=== PATIENT | male | born 1940 | race Caucasian/White ===

== ENCOUNTER 2018-05-04 19:18 | Inpatient (IN) | payer MEDICARE ==
[2018-05-04] MEDS ORDERED: SODIUM CHLORIDE 0.9% 1,000 ML IV STA ×2 (19:33)
[2018-05-04] MEDS ORDERED: ONDANSETRON 4 MG/2 ML VIAL IVP STA (19:33)
[2018-05-04] MEDS ORDERED: PANTOPRAZOLE 40 MG/10 ML VIAL IVP STA (19:33)
[2018-05-04 19:56] LABS: Anisocytosis Slight; Hypochromasia Marked; MCHC 30.4 g/dL (31.0-37.0); MCV 79.1 fL (80.0-100.0); Mean Platelet Volume 9.5; Microcytosis Slight; Platelet Count 112 k/uL (150-450); Poikilocytosis Slight; RBC 1.72 m/uL (4.30-5.90); RDW 18.8 % (11.5-15.5); WBC 22.2 k/uL (3.8-10.6)
[2018-05-04 20:06] LABS: HCT 13.6 % (39.0-53.0); HGB 4.1 gm/dL (13.0-17.5)
[2018-05-04 20:15] LABS: ALT 38 U/L (21-72); AST 25 U/L (17-59); Albumin 2.3 g/dL (3.5-5.0); Alkaline Phosphatase 57 U/L (38-126); Anion Gap 13 mmol/L; Calcium 8.6 mg/dL (8.4-10.2); Carbon Dioxide 15 mmol/L (22-30); Chloride 109 mmol/L (98-107); Glucose 180 mg/dL (74-99); Sodium 137 mmol/L (137-145); Total Bilirubin <0.1 mg/dL (0.2-1.3); Total Protein 4.8 g/dL (6.3-8.2)
[2018-05-04 20:17] LABS: Creatine Kinase 23 U/L (55-170)
[2018-05-04] MEDS ORDERED: metroNIDAZOLE 500 MG TAB PO STA (20:22)
[2018-05-04] MEDS ORDERED: PIPERACILLIN-TAZOBACTAM 3.375 GM in DEXTROSE/WATER 1 50ML.BAG IVPB STA (20:22)
[2018-05-04 20:24] LABS: Band Neutrophils % 2 %; Lymphocytes # (M) 0.44 k/uL (1.0-4.8); Monocytes # (M) 1.78 k/uL (0-1.0); Myelocytes # (M) 0.67 k/uL (0); Myelocytes % 3 %; Neutrophils % (M) 86 %; Nucleated Red Blood Cells 0 /100 WBC (0-0); Total Cells Counted 200
[2018-05-04 20:25] LABS: Ovalocytes Present; Polychromasia Present
--- NOTE | 2018-05-04 20:29 | ED ---
General Adult HPI - General Chief complaint: Syncope Stated complaint: dizziness,diarrhea Time Seen by Provider: 05/04/18 19:19 Source: patient, EMS Mode of arrival: EMS Limitations: no limitations - History of Present Illness Initial comments: 76 years old male comes in with a diarrhea for about a week now he said he was feeling very weak he said he been falling he denies any loss of consciousness his blood pressure noted by EMS was 82/50 he feels very very feet he is pale he feels like he is given a pass out and he noticed that his stool was black tarry area I denies any head injury no neck injury because of the falls no chest pain right now mild abdominal discomfort. Symptoms of TIA or CVA - Related Data Home Medications Medication Instructions Recorded Confirmed Aspirin [Adult Low Dose Aspirin EC] 81 mg PO DAILY@1500 01/02/16 01/02/16 Isosorbide Mononitrate [Isosorbide 30 mg PO DAILY@1500 01/02/16 01/02/16 Mononitrate ER] Pyridoxine [Vitamin B-6] 100 mg PO DAILY@1500 01/02/16 01/02/16 Previous Rx's Medication Instructions Recorded Cephalexin [Keflex] 500 mg PO TID #30 cap 01/08/16 Furosemide [Lasix] 40 mg PO DAILY #30 tab 01/08/16 Lisinopril [Zestril] 2.5 mg PO DAILY #30 tab 01/08/16 Metoprolol Tartrate [Lopressor] 75 mg PO TID #90 tablet 01/08/16 Spironolactone [Aldactone] 25 mg PO DAILY #30 tab 01/08/16 Warfarin [Coumadin] 5 mg PO DAILY@1800 #30 tab 01/08/16 predniSONE 20 mg PO DAILY #4 tab 01/08/16 Allergies Allergy/AdvReac Type Severity Reaction Status Date / Time No Known Allergies Allergy Verified 01/02/16 16:10 Review of Systems ROS Statement: Those systems with pertinent positive or pertinent negative responses have been documented in the HPI. ROS Other: All systems not noted in ROS Statement are negative. Past Medical History Past Medical History: Atrial Fibrillation, Cancer, Myocardial Infarction ([place]) Additional Past Medical History / Comment(s): bladder ca, prostate ca had sx( urostomy) and 1 round of chemo in , afib, campo, hemorhoids, pt stated he was told by a dr that he had an enlarged heart, campo Last Myocardial Infarction Date:: 2002 History of Any Multi-Drug Resistant Organisms: None Reported Past Surgical History: Adenoidectomy, Tonsillectomy Additional Past Surgical History / Comment(s): bladder and prostate removal-has urostomy Past Anesthesia/Blood Transfusion Reactions: No Reported Reaction Past Psychological History: No Psychological Hx Reported Smoking Status: Current every day smoker Past Alcohol Use History: Daily Past Drug Use History: None Reported - Past Family History Father Family Medical History: No Reported History Mother Family Medical History: No Reported History General Exam Limitations: no limitations Course Vital Signs 05/04/18 19:20 Temperature 97.1 F L Pulse Rate 72 Respiratory 16 Rate Blood Pressure 85/50 O2 Sat by Pulse 95 Oximetry EKG Findings - EKG Comments: EKG Findings:: EKG is atrial fibrillation with rapid ventricular response rate is 127 Ms. atrial fibrillation QRS duration is 100 QT/QTC 312/453 and aVF this EKG does not reveal any ST elevation noticed some T-wave inversion in lead 3 and lead aVF some tall T waves in V4 V5 Medical Decision Making - Lab Data Result diagrams: 05/04/18 19:42 05/04/18 19:42 Lab Results 05/04/18 05/04/18 05/04/18 Range/Units 19:42 19:42 19:42 WBC 22.2 H (3.8-10.6) k/uL RBC 1.72 L (4.30-5.90) m/uL Hgb 4.1 L* (13.0-17.5) gm/dL Hct 13.6 L* (39.0-53.0) % MCV 79.1 L (80.0-100.0) fL MCH 24.0 L (25.0-35.0) pg MCHC 30.4 L (31.0-37.0) g/dL RDW 18.8 H (11.5-15.5) % Plt Count 112 L (150-450) k/uL Neutrophils % (Manual) 86 % Band Neutrophils % 2 % Lymphocytes % (Manual) 2 % Monocytes % (Manual) 8 % Myelocytes % 3 % Neutrophils # (Manual) 19.50 H (1.3-7.7) k/uL Lymphocytes # (Manual) 0.44 L (1.0-4.8) k/uL Monocytes # (Manual) 1.78 H (0-1.0) k/uL Myelocytes # (Manual) 0.67 H (0) k/uL Nucleated RBCs 0 (0-0) /100 WBC Manual Slide Review Performed Polychromasia Present Hypochromasia Marked Poikilocytosis Slight Anisocytosis Slight Microcytosis Slight Ovalocytes Present PT (9.0-12.0) sec INR (<1.2) APTT (22.0-30.0) sec Sodium (137-145) mmol/L Potassium (3.5-5.1) mmol/L Chloride (98-107) mmol/L Carbon Dioxide (22-30) mmol/L Anion Gap mmol/L BUN (9-20) mg/dL Creatinine (0.66-1.25) mg/dL Est GFR (CKD-EPI)AfAm (>60 ml/min/1.73 sqM) Est GFR (CKD-EPI)NonAf (>60 ml/min/1.73 sqM) Glucose (74-99) mg/dL Plasma Lactic Acid Delon (0.7-2.0) mmol/L Calcium (8.4-10.2) mg/dL Total Bilirubin (0.2-1.3) mg/dL AST (17-59) U/L ALT (21-72) U/L Alkaline Phosphatase (38-126) U/L Total Creatine Kinase 23 L (55-170) U/L CK-MB (CK-2) 1.1 (0.0-2.4) ng/mL CK-MB (CK-2) Rel Index 4.8 Troponin I <0.012 (0.000-0.034) ng/mL Total Protein (6.3-8.2) g/dL Albumin (3.5-5.0) g/dL Stool Occult Blood (Negative) Blood Type O Positive Blood Type Recheck No Antibody Screen NEGATIVE Crossmatch See Detail Spec Expiration Date 05/07/2018 - 234105/04/18 05/04/18 05/04/18 Range/Units 19:42 19:42 19:42 WBC (3.8-10.6) k/uL RBC (4.30-5.90) m/uL Hgb (13.0-17.5) gm/dL Hct (39.0-53.0) % MCV (80.0-100.0) fL MCH (25.0-35.0) pg MCHC (31.0-37.0) g/dL RDW (11.5-15.5) % Plt Count (150-450) k/uL Neutrophils % (Manual) % Band Neutrophils % % Lymphocytes % (Manual) % Monocytes % (Manual) % Myelocytes % % Neutrophils # (Manual) (1.3-7.7) k/uL Lymphocytes # (Manual) (1.0-4.8) k/uL Monocytes # (Manual) (0-1.0) k/uL Myelocytes # (Manual) (0) k/uL Nucleated RBCs (0-0) /100 WBC Manual Slide Review Polychromasia Hypochromasia Poikilocytosis Anisocytosis Microcytosis Ovalocytes PT (9.0-12.0) sec INR (<1.2) APTT (22.0-30.0) sec Sodium 137 (137-145) mmol/L Potassium 5.0 (3.5-5.1) mmol/L Chloride 109 H (98-107) mmol/L Carbon Dioxide 15 L (22-30) mmol/L Anion Gap 13 mmol/L BUN 131 H* (9-20) mg/dL Creatinine 2.50 H (0.66-1.25) mg/dL Est GFR (CKD-EPI)AfAm 28 (>60 ml/min/1.73 sqM) Est GFR (CKD-EPI)NonAf 24 (>60 ml/min/1.73 sqM) Glucose 180 H (74-99) mg/dL Plasma Lactic Acid Delon 4.1 H* (0.7-2.0) mmol/L Calcium 8.6 (8.4-10.2) mg/dL Total Bilirubin <0.1 L (0.2-1.3) mg/dL AST 25 (17-59) U/L ALT 38 (21-72) U/L Alkaline Phosphatase 57 (38-126) U/L Total Creatine Kinase (55-170) U/L CK-MB (CK-2) (0.0-2.4) ng/mL CK-MB (CK-2) Rel Index Troponin I (0.000-0.034) ng/mL Total Protein 4.8 L (6.3-8.2) g/dL Albumin 2.3 L (3.5-5.0) g/dL Stool Occult Blood Positive (Negative) Blood Type Blood Type Recheck Antibody Screen Crossmatch Spec Expiration Date 05/04/18 Range/Units 19:42 WBC (3.8-10.6) k/uL RBC (4.30-5.90) m/uL Hgb (13.0-17.5) gm/dL Hct (39.0-53.0) % MCV (80.0-100.0) fL MCH (25.0-35.0) pg MCHC (31.0-37.0) g/dL RDW (11.5-15.5) % Plt Count (150-450) k/uL Neutrophils % (Manual) % Band Neutrophils % % Lymphocytes % (Manual) % Monocytes % (Manual) % Myelocytes % % Neutrophils # (Manual) (1.3-7.7) k/uL Lymphocytes # (Manual) (1.0-4.8) k/uL Monocytes # (Manual) (0-1.0) k/uL Myelocytes # (Manual) (0) k/uL Nucleated RBCs (0-0) /100 WBC Manual Slide Review Polychromasia Hypochromasia Poikilocytosis Anisocytosis Microcytosis Ovalocytes PT >130.0 H (9.0-12.0) sec INR >10.0 H* (<1.2) APTT 63.1 H (22.0-30.0) sec Sodium (137-145) mmol/L Potassium (3.5-5.1) mmol/L Chloride (98-107) mmol/L Carbon Dioxide (22-30) mmol/L Anion Gap mmol/L BUN (9-20) mg/dL Creatinine (0.66-1.25) mg/dL Est GFR (CKD-EPI)AfAm (>60 ml/min/1.73 sqM) Est GFR (CKD-EPI)NonAf (>60 ml/min/1.73 sqM) Glucose (74-99) mg/dL Plasma Lactic Acid Delon (0.7-2.0) mmol/L Calcium (8.4-10.2) mg/dL Total Bilirubin (0.2-1.3) mg/dL AST (17-59) U/L ALT (21-72) U/L Alkaline Phosphatase (38-126) U/L Total Creatine Kinase (55-170) U/L CK-MB (CK-2) (0.0-2.4) ng/mL CK-MB (CK-2) Rel Index Troponin I (0.000-0.034) ng/mL Total Protein (6.3-8.2) g/dL Albumin (3.5-5.0) g/dL Stool Occult Blood (Negative) Blood Type Blood Type Recheck Antibody Screen Crossmatch Spec Expiration Date Critical Care Time Total Critical Care Time: 60 Critical Care Time: Since baseline hemoglobin is 13.5. Hemoglobin is 4.1 and a black tarry stool occult blood is positive for his INR is greater than 10 years PT is greater than 1:30 lactate is 4.1. Impression was 82/50, located all his parameters the septic, he has a massive GI bleed and now he has a atrial fibrillation with RVR instead of firm putting him on some AV blocking agent to go to give a hydrate him with the normal saline first then 3 units of packed red cells have been ordered 2 units of fresh frozen plasma along with vitamin K 10 mg has been ordered and spoke with the Dr. De Leon he agrees with that so for would also get broad-spectrum antibiotics and be going to the ICU he also got IV PPIs and now will consult Dr. Rhiannon Hickey Disposition Clinical Impression: Sepsis, GI bleed, Atrial fibrillation with RVR, Hypotension Disposition: ADMITTED IP TO THIS HOSP Condition: Good Referrals: Baudilio De Leon MD [Primary Care Provider] - 1-2 days
[2018-05-04 20:30] LABS: Creatine Kinase MB 1.1 ng/mL (0.0-2.4); Troponin I <0.012 ng/mL (0.000-0.034)
[2018-05-04 20:37] LABS: Prothrombin Time >130.0 sec (9.0-12.0)
[2018-05-04 20:39] LABS: INR >10.0 (<1.2)
[2018-05-04 20:40] LABS: Partial Thromboplastin Time 63.1 sec (22.0-30.0)
[2018-05-04 20:49] LABS: Blood Urea Nitrogen 131 mg/dL (9-20)
[2018-05-04] MEDS ORDERED: PHYTONADIONE 10 MG in SODIUM CHLORIDE 0.9% 50 ML IVPB STA (20:50)
[2018-05-04] MEDS ORDERED: NALOXONE 0.4 MG/ML 1 ML VIAL IV PRN (20:57)
[2018-05-04] MEDS ORDERED: ACETAMINOPHEN TAB 325 MG TAB PO PRN (20:57)
[2018-05-04] MEDS: DILTIAZEM 50 MG in SODIUM CHLORIDE 0.9% 40 ML IV SCH (21:20)
--- NOTE | 2018-05-04 21:31 | XR ---
EXAMINATION: XR chest 3V DATE AND TIME: 05/04/2018 8:12 PM ORDERING PROVIDER: Ingrid Almeida MD CLINICAL INDICATION: pain TECHNIQUE: 2 PA and lateral COMPARISON: 01/02/2016 DESCRIPTION: The lungs are clear. The pleural spaces are negative. The cardiac silhouette is mild-moderately enlarged. The mediastinal and pleural silhouettes are unrem arkable. The skeletal structures are intact without focal findings. The soft tissues are unremarkable . IMPRESSION: NO ACUTE PROCESS.
[2018-05-04] MEDS ORDERED: LORazepam 2 MG/ML INJ IM STA (22:25)
[2018-05-04] MEDS ORDERED: LORazepam 2 MG/ML INJ IV STA (22:28)
[2018-05-04] MEDS: KETAMINE 10 MG/ML 20 ML VIAL IV ONE ×2 (22:47→22:55)
--- NOTE | 2018-05-04 23:04 | XR ---
EXAMINATION TYPE: XR chest 1V portable DATE OF EXAM: 05/04/2018 COMPARISON: Today HISTORY: Altered mental status. TECHNIQUE: Single frontal view of the chest is obtained. FINDINGS: Heart is enlarged. There is some mild pulmonary vascular congestion. I see no definite ple ural effusion. Bony thorax appears intact. There is arthritic disease in the shoulder joints. IMPRESSION: There is probably mild congestive heart failure that is the same or slightly improved co mpared to exam earlier today at 8:00 PM.
[2018-05-04] MEDS ORDERED: NOREPINEPHRIN 4 MG-0.9% NS PMX 4 MG/250 ML ML IV SCH (23:15)
[2018-05-04] MEDS: fentaNYL (PF) 50 MCG/ML 2 ML AMP IVP STA ×2 (23:18→23:36)
[2018-05-04] MEDS: PROPOFOL 1,000 MG in EMPTY BAG 1 BAG IV SCH (23:25)
--- NOTE | 2018-05-05 00:15 | XR ---
EXAMINATION TYPE: XR chest 1V portable DATE OF EXAM: 05/04/2018 COMPARISON: Today at 10:45 PM HISTORY: Intubation TECHNIQUE: Single frontal view of the chest is obtained. FINDINGS: There is endotracheal tube with tip approximately 6 cm from the luisa. There is nasogastr ic tube with the tip at the gastroesophageal junction. There is right jugular catheter with tip over the superior vena cava. There is no pneumothorax. There is some pulmonary interstitial edema. Heart a ppears enlarged. IMPRESSION: Tubing in good position. There is some pulmonary edema unchanged.
--- NOTE | 2018-05-05 00:35 | CT ---
EXAMINATION TYPE: CT brain wo con DATE OF EXAM: 05/05/2018 COMPARISON: None HISTORY: AMS CT DLP: 1184.90 mGycm Automated exposure control for dose reduction was used. FINDINGS: There is some cerebral cortical atrophy. There is no mass effect nor midline shift. There is no sign of intracranial hemorrhage. There is 2 x 1 cm old lacunar infarct in the anterior right internal caps ule. The calvarium is intact. There is mild mucosal thickening in the ethmoid air cells. 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 NO ACUTE INTRACRANIAL ABNORMALITY.
[2018-05-05 00:49] LABS: ABG Base Excess -14.6 mmol/L; ABG HCO3 15 mmol/L (21-25); ABG PCO2 50 mmHg (35-45); ABG PO2 370 mmHg (83-108); ABG TCO2 17 mmol/L (19-24)
[2018-05-05 00:51] LABS: ABG PH 7.09 (7.35-7.45)
[2018-05-05] MEDS ORDERED: FUROSEMIDE 10 MG/ML 2 ML VIAL IV ONE (01:20)
[2018-05-05] MEDS ORDERED: FUROSEMIDE 10 MG/ML 4 ML VIAL IV STA (01:21)
[2018-05-05 01:56] LABS: Glucose,Whole Blood 252 mg/dL (75-99)
[2018-05-05] MEDS ORDERED: NOREPINEPHRIN 16 MG-0.9%NS PMX 16 MG/250 ML ML IV SCH (02:30)
[2018-05-05] MEDS: METOPROLOL TARTRATE 25 MG TAB PO SCH ×4 (03:42→21:55)
[2018-05-05 04:04] LABS: Albumin 2.7 g/dL (3.5-5.0); Calcium 8.5 mg/dL (8.4-10.2); Magnesium 2.3 mg/dL (1.6-2.3); Phosphorus 5.5 mg/dL (2.5-4.5); Potassium 5.7 mmol/L (3.5-5.1); Total Bilirubin 0.4 mg/dL (0.2-1.3); Total Protein 5.3 g/dL (6.3-8.2)
[2018-05-05 04:05] LABS: Anisocytosis Slight; HCT 20.4 % (39.0-53.0); Hypochromasia Marked; MCH 26.9 pg (25.0-35.0); MCHC 31.9 g/dL (31.0-37.0); Mean Platelet Volume 11.5; Platelet Count 163 k/uL (150-450); Poikilocytosis Slight; RBC 2.42 m/uL (4.30-5.90); RDW 18.2 % (11.5-15.5)
[2018-05-05] MEDS: NOREPINEPHRINE 16 MG in DEXTROSE 5% IN WATER 250 ML IV SCH ×4 (04:06→17:17)
[2018-05-05 04:11] LABS: HGB 6.5 gm/dL (13.0-17.5); MCV 84.3 fL (80.0-100.0)
[2018-05-05 04:30] LABS: Band Neutrophils % 8 %; Lymphocytes # (M) 1.92 k/uL (1.0-4.8); Metamyelocytes # (M) 0.64 k/uL (0); Metamyelocytes % 2 %; Monocytes # (M) 0.32 k/uL (0-1.0); Myelocytes # (M) 0.32 k/uL (0); Myelocytes % 1 %; Neutrophils % (M) 83 %; Nucleated Red Blood Cells 0 /100 WBC (0-0); Total Cells Counted 200
[2018-05-05 04:31] LABS: Poikilocytosis (M) Present; Polychromasia Present; Target Cells Present
[2018-05-05] MEDS: PROPOFOL 1,000 MG in EMPTY BAG 1 BAG IV SCH ×3 (07:41→18:05)
--- NOTE | 2018-05-05 07:56 | XR ---
EXAMINATION TYPE: XR chest 1V DATE OF EXAM: 05/05/2018 CLINICAL HISTORY: Difficulty breathing progress study. TECHNIQUE: Single AP portable upright view of the chest is obtained. COMPARISON: Chest x-ray from one day earlier and older studies. CT chest January 03, 2016. FINDINGS: An endotracheal tube, orogastric tube, and right internal jugular central venous catheter are all stable in appearance. There is persistent cardiomegaly. There is no suspicious new focal airspace opacity, pleural effusion , or pneumothorax seen bilaterally. Background mild chronic emphysematous change is noted and 2016 CT . Degenerative change bilateral glenohumeral joints is present. IMPRESSION: Overall stable findings, mild underlying emphysematous change and cardiomegaly without suspicious acute infiltrate.
[2018-05-05] MEDS: IPRATROPIUM-ALBUTEROL 3 ML NEB INHALATION PRN ×4 (08:01→19:28)
[2018-05-05] MEDS ORDERED: FUROSEMIDE 40 MG TAB PO SCH (09:00)
[2018-05-05] MEDS ORDERED: PANTOPRAZOLE 40 MG/10 ML VIAL IV SCH (09:00)
[2018-05-05] MEDS ORDERED: predniSONE 20 MG TAB PO SCH (09:00)
[2018-05-05] MEDS ORDERED: SPIRONOLACTONE 25 MG TAB PO SCH (09:00)
[2018-05-05 09:30] LABS: ABG Base Excess -6.6 mmol/L; ABG HCO3 20 mmol/L (21-25); ABG Oxygen Saturation 94.9 % (94-97); ABG PCO2 44 mmHg (35-45); ABG PH 7.27 (7.35-7.45); ABG PO2 72 mmHg (83-108); ABG TCO2 22 mmol/L (19-24)
--- NOTE | 2018-05-05 10:01 | P.CONS ---
History of Present Illness - Reason for Consult Consult date: 05/05/18 GI bleeding Requesting physician: Baudilio De Leon - History of Present Illness Patient intubated history obtained from medical records and nursing staff. 77- year-old gentleman with a history of prostate cancer/urostomy, atrial fibrillation maintained on warfarin admitted with generalized weakness and black colored bowel movements as well as mild abdominal pain falls intermittent loss of consciousness for over a week. Patient had episode of A. fib with RVR as well as mental status changes in the ER CT brain no acute process. Patient was subsequently intubated presently resting in the ICU setting. Orogastric tube in place with nonbloody gastric fluid. Ensure patient has a history of peptic ulcer disease or GI bleeding. Unsure if he's had a recent EGD or colonoscopy. Admission hemoglobin 4.1. MCV 79. White count 22. Platelet 112. INR greater than 10. BUN 131. Chronic 2.5. LFTs within normal limits. Lactic acid 4.1 with hydration improved to 2.0. Received Vitamin K 2 units of FFP and 3 units of blood. Hemoglobin 6.5. White count 32. Platelet 163. Stool occult blood positive. Upon review of medical records previous hemoglobin range 12-13 in 2016. Review of Systems Obtained from medical records nursing staff Constitutional: Generalized weakness falls loss of consciousness intermittently over the last week no reports of fever or chills. HEENT: Negative for migraines, blurred vision or loss, earaches, drainage, tinnitus, oral mucosal lesions, dysphagia, or odynophagia. Cardiac: Negative for chest pain, arrhythmias, or palpitation. Respiratory: Negative for shortness of breath, hemoptysis, cough, or sputum production. Gastrointestinal: See HPI for pertinent findings. Genitourinary: Negative for hematuria, urgency, frequency, polyuria, dysuria, or penile discharge. Musculoskeletal: Negative for muscle aches, swelling, arthritis, and arthralgias. Neurologic: Negative for stroke or TIA. Endocrine: Negative for thyroid problems. Skin: Negative for rash or itching. Psychiatric: Negative history for depression and anxiety ROS unobtainable: due to endotracheal tube, due to mental status Past Medical History Past Medical History: Atrial Fibrillation, Cancer, Myocardial Infarction ([place]) Additional Past Medical History / Comment(s): bladder ca, prostate ca had sx( urostomy) and 1 round of chemo in , afib, [place], hemorhoids, pt stated he was told by a dr that he had an enlarged heart, [place] Last Myocardial Infarction Date:: 2002 History of Any Multi-Drug Resistant Organisms: None Reported Past Surgical History: Adenoidectomy, Tonsillectomy Additional Past Surgical History / Comment(s): bladder and prostate removal-has urostomy Past Anesthesia/Blood Transfusion Reactions: No Reported Reaction Past Psychological History: No Psychological Hx Reported Additional Psychological History / Comment(s): pt lives alone in own home. used to work at [employer], no service. Smoking Status: Former smoker Past Alcohol Use History: Daily Additional Past Alcohol Use History / Comment(s): started smoking at age 15 or 16, smoked 1 ppd but quit 7 days ago. drinks 3 beer per day,denies drug use per daughter. Past Drug Use History: None Reported - Past Family History Father Family Medical History: No Reported History Mother Family Medical History: No Reported History Medications and Allergies Home Medications Medication Instructions Recorded Confirmed Type Isosorbide Mononitrate [Isosorbide 30 mg PO DAILY 01/02/16 05/04/18 History Mononitrate ER] Pyridoxine [Vitamin B-6] 100 mg PO DAILY 01/02/16 05/04/18 History Furosemide [Lasix] 40 mg PO DAILY #30 tab 01/08/16 05/04/18 Rx Lisinopril [Zestril] 2.5 mg PO DAILY #30 tab 01/08/16 05/04/18 Rx Spironolactone [Aldactone] 25 mg PO DAILY #30 tab 01/08/16 05/04/18 Rx Metoprolol Tartrate [Lopressor] 75 mg PO BID 05/04/18 05/04/18 History Multivitamins, Thera [Multivitamin 1 tab PO DAILY 05/04/18 05/04/18 History (formulary)] Warfarin Sodium [Coumadin] 8 mg PO DAILY 05/04/18 05/04/18 History Allergies Allergy/AdvReac Type Severity Reaction Status Date / Time No Known Allergies Allergy Verified 05/04/18 21:14 Physical Exam Vitals: Vital Signs Temp Pulse Resp BP Pulse Ox 05/05/18 09:30 123 H 21 95/38 94 L 05/05/18 09:15 101 H 22 101/47 05/05/18 09:00 100 16 96/50 100 05/05/18 08:45 101 H 17 103/53 100 05/05/18 08:30 97 16 118/56 05/05/18 08:23 100 16 05/05/18 08:15 94 15 104/38 100 05/05/18 08:02 89 17 05/05/18 08:00 97.5 F L 87 16 111/43 100 05/05/18 07:45 100 17 117/38 100 05/05/18 07:30 96 16 108/52 05/05/18 07:15 93 17 103/42 100 05/05/18 07:00 87 16 87/45 100 05/05/18 06:45 80 16 81/37 99 05/05/18 06:30 92 16 86/46 100 05/05/18 06:15 93 16 100/59 100 05/05/18 06:00 86 16 99/54 97 05/05/18 05:45 110 H 16 86/49 100 05/05/18 05:30 100 16 90/48 100 05/05/18 05:15 93 16 83/45 100 05/05/18 05:00 88 16 77/54 100 05/05/18 04:45 99 18 85/58 100 05/05/18 04:30 100 17 95/50 100 05/05/18 04:15 105 H 16 107/54 100 05/05/18 04:00 97.9 F 100 16 106/52 100 05/05/18 03:56 97.7 F 109 H 17 106/52 100 05/05/18 03:45 102 H 18 106/49 100 05/05/18 03:30 116 H 16 115/55 100 05/05/18 03:15 99 18 114/58 100 05/05/18 03:00 101 H 21 109/59 100 05/05/18 02:58 97.5 F L 102 H 16 114/58 100 05/05/18 02:45 98 16 117/58 100 05/05/18 02:30 89 18 98/39 100 05/05/18 02:28 97.5 F L 98 17 117/58 100 05/05/18 02:18 97.6 F 108 H 16 98/39 100 05/05/18 02:17 97.6 F 108 H 16 98/39 100 05/05/18 02:15 98 15 126/54 100 05/05/18 02:00 97.5 F L 101 H 16 117/59 100 05/05/18 01:32 105 H 16 108/58 99 05/05/18 00:30 112 H 16 154/53 100 05/05/18 00:10 108 H 16 110/69 05/04/18 23:49 112 H 16 127/65 05/04/18 23:34 120 H 16 123/58 05/04/18 23:30 96.8 F L 115 H 18 116/59 100 05/04/18 23:24 116 H 143/63 05/04/18 23:15 97.6 F 107 H 16 98/39 05/04/18 23:00 128 H 116/59 05/04/18 22:40 100 12 95 05/04/18 22:18 96.8 F L 99 16 99/63 100 05/04/18 22:02 97 F L 120 H 18 114/53 05/04/18 21:48 96.9 F L 115 H 18 103/56 100 05/04/18 21:38 97.2 F L 120 H 18 95/53 100 05/04/18 21:14 110 H 18 91/65 05/04/18 19:20 97.1 F L 72 16 85/50 95 Intake and Output 05/04/18 05/05/18 05/05/18 22:59 06:59 14:59 Intake Total 0 2190.953 291.035 Output Total 275 235 Balance 0 1915.953 56.035 Intake: IV 225 225 Sodium Chloride 0.9% 1, 225 225 000 ml @ 75 mls/hr IV . [id number] STA Rx#:[id number] Intake, IV Titration 113.953 66.035 Amount Norepinephrin 4 mg-0.9% 51.25 Ns Pmx 4 mg In 250 ml @ Titrate IV .Q0M OLIVE Rx#: [id number] Norepinephrine 16 mg In 27.839 Dextrose 5% in Water 250 ml @ Titrate IV .Q0M OLIVE Rx#:[id number] Propofol 1,000 mg In 34.864 66.035 Empty Bag 1 bag @ Titrate IV .Q0M OLIVE Rx#: [id number] Blood Product 0 1852 Ffp 24 Cpd Unit 306 [id number] Ffp 24 Cpd Unit 310 [id number] Rc As-1 Unit 0 310 [id number] Rc Pheresis 2 As3 Unit 310 [id number] Rc Pheresis As-3 Unit 310 [id number] Output: Urine 275 235 Other: Voiding Method Ileal Conduit (Right) Weight 99.79 kg 102.5 kg General appearance: The patient is intubated sedated. HEENT: Head is normocephalic and atraumatic. Pupils are equal and reactive. The nares are patent. Orogastric tube with nonbloody gastric fluid. Neck: Supple without lymphadenopathy. Trachea midline. Endotracheal tube intact. Heart: S1 S2. Lungs: No crackles or wheezes are heard. Abdomen: Soft, nontender, nondistended with good bowel sounds. No peritoneal signs. No palpable organomegaly or masses. Extremities: Normal skin color and turgor. No cyanosis, rash, ulceration, clubbing, or edema. Radial and pedal pulses are 2/4 bilaterally. Urostomy clear iglesia urine. Neurological: Cannot be assessed at this time since the patient is intubated and sedated. Results CBC & Chem 7: 05/06/18 04:15 05/06/18 04:15 Labs: Abnormal Lab Results - Last 24 Hours (Table) 05/04/18 05/04/18 05/04/18 Range/Units 19:42 19:42 19:42 WBC 22.2 H (3.8-10.6) k/uL RBC 1.72 L (4.30-5.90) m/uL Hgb 4.1 L* (13.0-17.5) gm/dL Hct 13.6 L* (39.0-53.0) % MCV 79.1 L (80.0-100.0) fL MCH 24.0 L (25.0-35.0) pg MCHC 30.4 L (31.0-37.0) g/dL RDW 18.8 H (11.5-15.5) % Plt Count 112 L (150-450) k/uL Neutrophils # (Manual) 19.50 H (1.3-7.7) k/uL Lymphocytes # (Manual) 0.44 L (1.0-4.8) k/uL Monocytes # (Manual) 1.78 H (0-1.0) k/uL Metamyelocytes # (Man) (0) k/uL Myelocytes # (Manual) 0.67 H (0) k/uL PT (9.0-12.0) sec INR (<1.2) APTT (22.0-30.0) sec ABG pH (7.35-7.45) ABG pCO2 (35-45) mmHg ABG pO2 (83-108) mmHg ABG HCO3 (21-25) mmol/L ABG Total CO2 (19-24) mmol/L ABG O2 Saturation (94-97) % Sodium (137-145) mmol/L Potassium (3.5-5.1) mmol/L Chloride (98-107) mmol/L Carbon Dioxide (22-30) mmol/L BUN (9-20) mg/dL Creatinine (0.66-1.25) mg/dL Glucose (74-99) mg/dL POC Glucose (mg/dL) (75-99) mg/dL Plasma Lactic Acid Delon (0.7-2.0) mmol/L Phosphorus (2.5-4.5) mg/dL Total Bilirubin (0.2-1.3) mg/dL Total Creatine Kinase 23 L (55-170) U/L Total Protein (6.3-8.2) g/dL Albumin (3.5-5.0) g/dL Crossmatch See Detail 05/04/18 05/04/18 05/04/18 Range/Units 19:42 19:42 19:42 WBC (3.8-10.6) k/uL RBC (4.30-5.90) m/uL Hgb (13.0-17.5) gm/dL Hct (39.0-53.0) % MCV (80.0-100.0) fL MCH (25.0-35.0) pg MCHC (31.0-37.0) g/dL RDW (11.5-15.5) % Plt Count (150-450) k/uL Neutrophils # (Manual) (1.3-7.7) k/uL Lymphocytes # (Manual) (1.0-4.8) k/uL Monocytes # (Manual) (0-1.0) k/uL Metamyelocytes # (Man) (0) k/uL Myelocytes # (Manual) (0) k/uL PT >130.0 H (9.0-12.0) sec INR >10.0 H* (<1.2) APTT 63.1 H (22.0-30.0) sec ABG pH (7.35-7.45) ABG pCO2 (35-45) mmHg ABG pO2 (83-108) mmHg ABG HCO3 (21-25) mmol/L ABG Total CO2 (19-24) mmol/L ABG O2 Saturation (94-97) % Sodium (137-145) mmol/L Potassium (3.5-5.1) mmol/L Chloride 109 H (98-107) mmol/L Carbon Dioxide 15 L (22-30) mmol/L BUN 131 H* (9-20) mg/dL Creatinine 2.50 H (0.66-1.25) mg/dL Glucose 180 H (74-99) mg/dL POC Glucose (mg/dL) (75-99) mg/dL Plasma Lactic Acid [place] 4.1 H* (0.7-2.0) mmol/L Phosphorus (2.5-4.5) mg/dL Total Bilirubin <0.1 L (0.2-1.3) mg/dL Total Creatine Kinase (55-170) U/L Total Protein 4.8 L (6.3-8.2) g/dL Albumin 2.3 L (3.5-5.0) g/dL Crossmatch 05/05/18 05/05/18 05/05/18 Range/Units 00:47 01:53 03:19 WBC (3.8-10.6) k/uL RBC (4.30-5.90) m/uL Hgb (13.0-17.5) gm/dL Hct (39.0-53.0) % MCV (80.0-100.0) fL MCH (25.0-35.0) pg MCHC (31.0-37.0) g/dL RDW (11.5-15.5) % Plt Count (150-450) k/uL Neutrophils # (Manual) (1.3-7.7) k/uL Lymphocytes # (Manual) (1.0-4.8) k/uL Monocytes # (Manual) (0-1.0) k/uL Metamyelocytes # (Man) (0) k/uL Myelocytes # (Manual) (0) k/uL PT (9.0-12.0) sec INR (<1.2) APTT (22.0-30.0) sec ABG pH 7.09 L* (7.35-7.45) ABG pCO2 50 H (35-45) mmHg ABG pO2 370 H (83-108) mmHg ABG HCO3 15 L (21-25) mmol/L ABG Total CO2 17 L (19-24) mmol/L ABG O2 Saturation 100.0 H (94-97) % Sodium 135 L (137-145) mmol/L Potassium 5.7 H (3.5-5.1) mmol/L Chloride 108 H (98-107) mmol/L Carbon Dioxide 16 L (22-30) mmol/L BUN 126 H* (9-20) mg/dL Creatinine 2.40 H (0.66-1.25) mg/dL Glucose 206 H (74-99) mg/dL POC Glucose (mg/dL) 252 H (75-99) mg/dL Plasma Lactic Acid [place] (0.7-2.0) mmol/L Phosphorus 5.5 H (2.5-4.5) mg/dL Total Bilirubin (0.2-1.3) mg/dL Total Creatine Kinase (55-170) U/L Total Protein 5.3 L (6.3-8.2) g/dL Albumin 2.7 L (3.5-5.0) g/dL Crossmatch 05/05/18 05/05/18 Range/Units 03:41 09:28 WBC 32.0 H* (3.8-10.6) k/uL RBC 2.42 L (4.30-5.90) m/uL Hgb 6.5 L* D (13.0-17.5) gm/dL Hct 20.4 L (39.0-53.0) % MCV (80.0-100.0) fL MCH (25.0-35.0) pg MCHC (31.0-37.0) g/dL RDW 18.2 H (11.5-15.5) % Plt Count (150-450) k/uL Neutrophils # (Manual) 29.10 H (1.3-7.7) k/uL Lymphocytes # (Manual) (1.0-4.8) k/uL Monocytes # (Manual) (0-1.0) k/uL Metamyelocytes # (Man) 0.64 H (0) k/uL Myelocytes # (Manual) 0.32 H (0) k/uL PT (9.0-12.0) sec INR (<1.2) APTT (22.0-30.0) sec ABG pH 7.27 L (7.35-7.45) ABG pCO2 (35-45) mmHg ABG pO2 72 L (83-108) mmHg ABG HCO3 20 L (21-25) mmol/L ABG Total CO2 (19-24) mmol/L ABG O2 Saturation (94-97) % Sodium (137-145) mmol/L Potassium (3.5-5.1) mmol/L Chloride (98-107) mmol/L Carbon Dioxide (22-30) mmol/L BUN (9-20) mg/dL Creatinine (0.66-1.25) mg/dL Glucose (74-99) mg/dL POC Glucose (mg/dL) (75-99) mg/dL Plasma Lactic Acid [place] (0.7-2.0) mmol/L Phosphorus (2.5-4.5) mg/dL Total Bilirubin (0.2-1.3) mg/dL Total Creatine Kinase (55-170) U/L Total Protein (6.3-8.2) g/dL Albumin (3.5-5.0) g/dL Crossmatch Assessment and Plan (1) GI bleed Narrative/Plan: Reports of black colored bowel movements possible peptic ulcer disease possible bleeding angiectasia however small bowel possible colonic source cannot be entirely excluded. Current Visit: Yes Status: Acute Code(s): K92.2 - GASTROINTESTINAL HEMORRHAGE, UNSPECIFIED SNOMED Code(s): 15521000 (2) Warfarin-induced coagulopathy Narrative/Plan: Supratherapeutic INR Current Visit: Yes Status: Acute Code(s): D68.32 - HEMORRHAGIC DISORD D/T EXTRINSIC CIRCULATING ANTICOAGULANTS; T45.515A - ADVERSE EFFECT OF ANTICOAGULANTS, INITIAL ENCOUNTER SNOMED Code(s): 40553123 (3) Acute blood loss anemia Current Visit: Yes Status: Acute Code(s): D62 - ACUTE POSTHEMORRHAGIC ANEMIA SNOMED Code(s): 830894117 (4) History of atrial fibrillation Current Visit: Yes Status: Acute Code(s): Z86.79 - PERSONAL HISTORY OF OTHER DISEASES OF THE CIRCULATORY SYSTEM SNOMED Code(s): 899917462 (5) History of prostate cancer Current Visit: Yes Status: Acute Code(s): Z85.46 - PERSONAL HISTORY OF MALIGNANT NEOPLASM OF PROSTATE SNOMED Code(s): 427225404 (6) Atrial fibrillation with RVR Current Visit: Yes Status: Acute Code(s): I48.91 - UNSPECIFIED ATRIAL FIBRILLATION SNOMED Code(s): 296917593193405 Plan: 1. Protonix 40 mg IV twice daily. CBC noon and daily. Hold anticoagulation. Daily INR. Consideration for inpatient EGD small bowel capsule endoscopy possible colonoscopy based on clinical course once INR is 1.5 or less. 2. NPO. OGT;LIS. Thank you for this kind referral and the opportunity to participate in the care of your patient. This consultation was discussed with Dr. Su The impression and plan of care have been directed as dictated.
[2018-05-05] MEDS: DEXTROSE 5% IN WATER 1,000 ML with SODIUM BICARB (1 MEQ/ML) 150 ML IV SCH (10:04)
[2018-05-05] MEDS: PIPERACILLIN-TAZOBACTAM 3.375 GM in DEXTROSE/WATER 1 50ML.BAG IVPB SCH ×2 (10:14→16:17)
[2018-05-05 10:15] LABS: INR 1.4 (<1.2); Prothrombin Time 13.4 sec (9.0-12.0)
[2018-05-05] MEDS: DILTIAZEM 50 MG in SODIUM CHLORIDE 0.9% 40 ML IV SCH (10:20)
[2018-05-05] MEDS: HYDROCORTISONE SUCCINATE 100 MG/2 ML VIAL IV SCH ×2 (11:15→16:17)
[2018-05-05] MEDS: CHLORHEXIDINE GLUCONATE 15 ML CUP MUCOUS MEM SCH ×2 (11:17→21:20)
[2018-05-05] MEDS: metroNIDAZOLE 500 MG TAB PO SCH ×3 (11:17→21:54)
--- NOTE | 2018-05-05 13:51 | P.CNPUL ---
History of Present Illness Consult date: 05/05/18 Reason for consult: other Chief complaint: GI bleed, syncope History of present illness: Mr. Raygoza is a 77-year-old white male patient of Dr. De Leon, who was brought in to the emergency department on the weight of 2017 at 1900 by the ambulance for evaluation of weakness, weeklong history of diarrhea, black tarry stools, falls, hypotension. EMS noted his blood pressure was 82/50, patient was feeling very faint, feeling like he was going to pass out. Denied any chest pain, complained of mild abdominal discomfort. Patient has past medical history of chronic atrial fibrillation, and patient is on Coumadin for anticoagulation. In the emergency department initial blood work revealed a CBC of 22.2, hemoglobin of 4.1, white count was 112, INR was greater than 10, sodium is 137, potassium was 5.0, B1 is 131, creatinine is 2.5. Lactic acid was elevated at 4.1, troponin was negative. Occult stool was positive. EKG showed A. fib with rapid ventricular response with a rate of 127 BPM. Patient has seemed a total of 4 units of packed red blood cells, 2 units of fresh frozen plasma, and follow-up labs showed hemoglobin of 6.5, WBC of 32, INR is down to 1.4. BUN of 126, creatinine is 2.40. Lactic acidosis has improved, and plasma lactic acid is currently down to 2.0. 10 mg of vitamin K was also given. Patient was started on IV Protonix, and GI service has been consulted. While in the emergency department he was noted to have progressively decreasing level of consciousness, and there was a concern about cerebral bleed. Patient was intubated and placed on mechanical ventilator. We're seeing the patient in consultation the intensive care unit, he remains sedated, on mechanical ventilator, on assist control mode of ventilation, with a rate of 22, tidal vital 400, FiO2 40%, PEEP of 5. IV D5W with 3 A of bicarb is infusing at a rate of 75 cc/hr, Diprivan and is at 40 mcg/kg/min, and levofed is at 22 mcg/ min. On empiric antibiotics in the form of Zosyn for a concern of aspiration pneumonia, chest x-ray showed mild pulmonary vascular congestion, enlarged heart. Postintubation chest x-ray showed ET tube approximately 6 cm from the luisa, NG tube in the appropriate position, no pneumothorax, some pulmonary interstitial edema. Brain CT showed old right internal capsule lacunar infarct , cerebral atrophy, but no acute intracranial abnormality. His mornings chest x -ray is overall stable findings, with mild underlying emphysematous change and cardiomegaly without acute infiltrate. Patient remains afebrile, remains in atrial fibrillation and currently remains tachycardic with a rate from 115 to 124 BPM. Other medical history includes bladder cancer, and prostate cancer, status post urostomy placement and chemotherapy in 2005, current smoker, previous history of myocardial infarction. Patient's urostomy bag is connected to a Rocha drainage bag, and he is having urine output in the order of 50-125 ML per hour. Review of Systems All systems: negative Constitutional: Denies chills, Denies fever Eyes: denies blurred vision, denies pain Ears, nose, mouth and throat: Denies headache, Denies sore throat Cardiovascular: Denies chest pain, Denies shortness of breath Respiratory: Denies cough Gastrointestinal: Denies abdominal pain, Denies diarrhea, Denies nausea, Denies vomiting Musculoskeletal: Denies myalgias Integumentary: Denies pruritus, Denies rash Neurological: Denies numbness, Denies weakness Psychiatric: Denies anxiety, Denies depression Endocrine: Denies fatigue, Denies weight change Past Medical History Past Medical History: Atrial Fibrillation, Cancer, Myocardial Infarction (ID) Additional Past Medical History / Comment(s): bladder ca, prostate ca had sx( urostomy) and 1 round of chemo in , afib, [place], hemorhoids, pt stated he was told by a dr that he had an enlarged heart, [place] Last Myocardial Infarction Date:: 2002 History of Any Multi-Drug Resistant Organisms: None Reported Past Surgical History: Adenoidectomy, Tonsillectomy Additional Past Surgical History / Comment(s): bladder and prostate removal-has urostomy Past Anesthesia/Blood Transfusion Reactions: No Reported Reaction Past Psychological History: No Psychological Hx Reported Additional Psychological History / Comment(s): pt lives alone in own home. used to work at [employer] no service. Smoking Status: Former smoker Past Alcohol Use History: Daily Additional Past Alcohol Use History / Comment(s): started smoking at age 15 or 16, smoked 1 ppd but quit 7 days ago. drinks 3 beer per day,denies drug use per daughter. Past Drug Use History: None Reported - Past Family History Father Family Medical History: No Reported History Mother Family Medical History: No Reported History Medications and Allergies Home Medications Medication Instructions Recorded Confirmed Type Isosorbide Mononitrate [Isosorbide 30 mg PO DAILY 01/02/16 05/04/18 History Mononitrate ER] Pyridoxine [Vitamin B-6] 100 mg PO DAILY 01/02/16 05/04/18 History Furosemide [Lasix] 40 mg PO DAILY #30 tab 01/08/16 05/04/18 Rx Lisinopril [Zestril] 2.5 mg PO DAILY #30 tab 01/08/16 05/04/18 Rx Spironolactone [Aldactone] 25 mg PO DAILY #30 tab 01/08/16 05/04/18 Rx Metoprolol Tartrate [Lopressor] 75 mg PO BID 05/04/18 05/04/18 History Multivitamins, Thera [Multivitamin 1 tab PO DAILY 05/04/18 05/04/18 History (formulary)] Warfarin Sodium [Coumadin] 8 mg PO DAILY 05/04/18 05/04/18 History Allergies Allergy/AdvReac Type Severity Reaction Status Date / Time No Known Allergies Allergy Verified 05/04/18 21:14 Physical Exam Vitals: Vital Signs Temp Pulse Resp BP Pulse Ox 05/05/18 12:35 124 H 25 H 05/05/18 12:20 98.3 F 110 H 24 113/48 96 05/05/18 12:15 115 H 24 96 05/05/18 12:00 98.3 F 119 H 17 122/58 99 05/05/18 11:45 106 H 24 106/49 98 05/05/18 11:30 113 H 26 H 114/51 95 05/05/18 11:15 103 H 25 H 100/50 97 05/05/18 11:08 97.7 F 110 H 26 H 97/47 95 05/05/18 11:00 105 H 22 108/50 05/05/18 10:45 105 H 31 H 115/54 98 05/05/18 10:38 97.7 F 95 28 H 115/54 97 05/05/18 10:30 96 21 112/50 96 05/05/18 10:28 98.7 F 105 H 22 112/50 05/05/18 10:15 107 H 23 111/48 05/05/18 10:00 96 20 96/43 95 05/05/18 09:45 123 H 19 102/44 92 L 05/05/18 09:30 123 H 21 95/38 94 L 05/05/18 09:15 101 H 22 101/47 05/05/18 09:00 100 16 96/50 100 05/05/18 08:45 101 H 17 103/53 100 05/05/18 08:30 97 16 118/56 05/05/18 08:23 100 16 05/05/18 08:15 94 15 104/38 100 05/05/18 08:02 89 17 05/05/18 08:00 97.5 F L 87 16 111/43 100 05/05/18 07:45 100 17 117/38 100 05/05/18 07:30 96 16 108/52 05/05/18 07:15 93 17 103/42 100 05/05/18 07:00 87 16 87/45 100 05/05/18 06:45 80 16 81/37 99 05/05/18 06:30 92 16 86/46 100 05/05/18 06:15 93 16 100/59 100 05/05/18 06:00 86 16 99/54 97 05/05/18 05:45 110 H 16 86/49 100 05/05/18 05:30 100 16 90/48 100 05/05/18 05:15 93 16 83/45 100 05/05/18 05:00 88 16 77/54 100 05/05/18 04:45 99 18 85/58 100 05/05/18 04:30 100 17 95/50 100 05/05/18 04:15 105 H 16 107/54 100 05/05/18 04:00 97.9 F 100 16 106/52 100 05/05/18 03:56 97.7 F 109 H 17 106/52 100 05/05/18 03:45 102 H 18 106/49 100 05/05/18 03:30 116 H 16 115/55 100 05/05/18 03:15 99 18 114/58 100 05/05/18 03:00 101 H 21 109/59 100 05/05/18 02:58 97.5 F L 102 H 16 114/58 100 05/05/18 02:45 98 16 117/58 100 05/05/18 02:30 89 18 98/39 100 05/05/18 02:28 97.5 F L 98 17 117/58 100 05/05/18 02:18 97.6 F 108 H 16 98/39 100 05/05/18 02:17 97.6 F 108 H 16 98/39 100 05/05/18 02:15 98 15 126/54 100 05/05/18 02:00 97.5 F L 101 H 16 117/59 100 05/05/18 01:32 105 H 16 108/58 99 05/05/18 00:30 112 H 16 154/53 100 05/05/18 00:10 108 H 16 110/69 05/04/18 23:49 112 H 16 127/65 05/04/18 23:34 120 H 16 123/58 05/04/18 23:30 96.8 F L 115 H 18 116/59 100 05/04/18 23:24 116 H 143/63 05/04/18 23:15 97.6 F 107 H 16 98/39 05/04/18 23:00 128 H 116/59 05/04/18 22:40 100 12 95 05/04/18 22:18 96.8 F L 99 16 99/63 100 05/04/18 22:02 97 F L 120 H 18 114/53 05/04/18 21:48 96.9 F L 115 H 18 103/56 100 05/04/18 21:38 97.2 F L 120 H 18 95/53 100 05/04/18 21:14 110 H 18 91/65 05/04/18 19:20 97.1 F L 72 16 85/50 95 Intake and Output 05/04/18 05/05/18 05/05/18 22:59 06:59 14:59 Intake Total 0 2190.953 727.850 Output Total 275 445 Balance 0 1915.953 282.850 Intake: IV 225 228 Pressure Bag 3 Sodium Chloride 0.9% 1, 225 225 000 ml @ 75 mls/hr IV . [id number] STA Rx#:[id number] Intake, IV Titration 113.953 189.850 Amount Norepinephrin 4 mg-0.9% 51.25 Ns Pmx 4 mg In 250 ml @ Titrate IV .Q0M OLIVE Rx#: [id number] Norepinephrine 16 mg In 27.839 99.688 Dextrose 5% in Water 250 ml @ Titrate IV .Q0M OLIVE Rx#:[id number] Propofol 1,000 mg In 34.864 90.162 Empty Bag 1 bag @ Titrate IV .Q0M OLIVE Rx#: [id number] Blood Product 0 1852 310 Ffp 24 Cpd Unit 306 [id number] Ffp 24 Cpd Unit 310 [id number] Rc As-1 Unit 0 310 [id number] Rc As-1 Unit 310 [id number] Rc Pheresis 2 As3 Unit 310 [id number] Rc Pheresis As-3 Unit 310 [id number] Output: Urine 275 445 Other: Voiding Method Ileal Conduit (Right) Weight 99.79 kg 102.5 kg ABP, PAP, CO, CI - Last 8 Hours Arterial Blood Pressure 104/47 Arterial Blood Pressure 113/50 Arterial Blood Pressure 58/15 GENERAL EXAM: 77-year-old elderly white male, sedated and intubated, on mechanical ventilator in no apparent distress. HEAD: Normocephalic/atraumatic. EYES: Normal reaction of pupils, equal size. Conjunctiva pink, sclera white. NOSE: Clear with pink turbinates. THROAT: No erythema or exudates. NECK: No masses, no JVD, no thyroid enlargement, no adenopathy. CHEST: No chest wall deformity. Symmetrical expansion. LUNGS: Equal air entry with coarse breath sounds, scattered rhonchi CVS: Irregular rate and rhythm, normal S1 and S2, no gallops, no murmurs, no rubs ABDOMEN: Soft, nontender. No hepatosplenomegaly, normal bowel sounds, no guarding or rigidity. There is a urostomy present on right abdomen, and active to a Rocha drainage bag with clear yellow urine EXTREMITIES: No clubbing, no edema, no cyanosis, 2+ pulses and upper and lower extremities. MUSCULOSKELETAL: Muscle strength and tone normal. SPINE: No scoliosis or deformity SKIN: No rashes CENTRAL NERVOUS SYSTEM: Sedated, on mechanical ventilator No focal deficits, tone is normal in all 4 extremities. PSYCHIATRIC: To assess, sedated Results - Laboratory Findings CBC and BMP: 05/05/18 03:41 05/05/18 03:19 ABG ABG pH 7.27 (7.35-7.45) L 05/05/18 09:28 ABG pCO2 44 mmHg (35-45) 05/05/18 09:28 ABG pO2 72 mmHg (83-108) L 05/05/18 09:28 ABG O2 Saturation 94.9 % (94-97) 05/05/18 09:28 PT/INR, D-dimer PT 13.4 sec (9.0-12.0) H 05/05/18 10:00 INR 1.4 (<1.2) H 05/05/18 10:00 Abnormal lab findings: Abnormal Labs 05/04/18 05/04/18 05/04/18 19:42 19:42 19:42 WBC 22.2 H RBC 1.72 L Hgb 4.1 L* Hct 13.6 L* MCV 79.1 L MCH 24.0 L MCHC 30.4 L RDW 18.8 H Plt Count 112 L Neutrophils # (Manual) 19.50 H Lymphocytes # (Manual) 0.44 L Monocytes # (Manual) 1.78 H Metamyelocytes # (Man) Myelocytes # (Manual) 0.67 H PT INR APTT ABG pH ABG pCO2 ABG pO2 ABG HCO3 ABG Total CO2 ABG O2 Saturation Sodium Potassium Chloride Carbon Dioxide BUN Creatinine Glucose POC Glucose (mg/dL) Plasma Lactic Acid Delon Phosphorus Total Bilirubin Total Creatine Kinase 23 L Total Protein Albumin Crossmatch See Detail 05/04/18 05/04/18 05/04/18 19:42 19:42 19:42 WBC RBC Hgb Hct MCV MCH MCHC RDW Plt Count Neutrophils # (Manual) Lymphocytes # (Manual) Monocytes # (Manual) Metamyelocytes # (Man) Myelocytes # (Manual) PT >130.0 H INR >10.0 H* APTT 63.1 H ABG pH ABG pCO2 ABG pO2 ABG HCO3 ABG Total CO2 ABG O2 Saturation Sodium Potassium Chloride 109 H Carbon Dioxide 15 L BUN 131 H* Creatinine 2.50 H Glucose 180 H POC Glucose (mg/dL) Plasma Lactic Acid Delon 4.1 H* Phosphorus Total Bilirubin <0.1 L Total Creatine Kinase Total Protein 4.8 L Albumin 2.3 L Crossmatch 05/05/18 05/05/18 05/05/18 00:47 01:53 03:19 WBC RBC Hgb Hct MCV MCH MCHC RDW Plt Count Neutrophils # (Manual) Lymphocytes # (Manual) Monocytes # (Manual) Metamyelocytes # (Man) Myelocytes # (Manual) PT INR APTT ABG pH 7.09 L* ABG pCO2 50 H ABG pO2 370 H ABG HCO3 15 L ABG Total CO2 17 L ABG O2 Saturation 100.0 H Sodium 135 L Potassium 5.7 H Chloride 108 H Carbon Dioxide 16 L BUN 126 H* Creatinine 2.40 H Glucose 206 H POC Glucose (mg/dL) 252 H Plasma Lactic Acid Delon Phosphorus 5.5 H Total Bilirubin Total Creatine Kinase Total Protein 5.3 L Albumin 2.7 L Crossmatch 05/05/18 05/05/18 05/05/18 03:41 09:28 10:00 WBC 32.0 H* RBC 2.42 L Hgb 6.5 L* D Hct 20.4 L MCV MCH MCHC RDW 18.2 H Plt Count Neutrophils # (Manual) 29.10 H Lymphocytes # (Manual) Monocytes # (Manual) Metamyelocytes # (Man) 0.64 H Myelocytes # (Manual) 0.32 H PT 13.4 H INR 1.4 H APTT ABG pH 7.27 L ABG pCO2 ABG pO2 72 L ABG HCO3 20 L ABG Total CO2 ABG O2 Saturation Sodium Potassium Chloride Carbon Dioxide BUN Creatinine Glucose POC Glucose (mg/dL) Plasma Lactic Acid Delon Phosphorus Total Bilirubin Total Creatine Kinase Total Protein Albumin Crossmatch - Diagnostic Findings Chest x-ray: report reviewed, image reviewed Additional studies: EKG, brain CT results reviewed Assessment and Plan Plan: Assessment: #1. Acute blood loss anemia, secondary to GI bleeding #2. Hypotension, weakness, falls, black tarry stools related to the above #3. Altered mentation, likely related to hypovolemia, and possibly related to sepsis #4. Leukocytosis, rule out sepsis #5. Coumadin induced coagulopathy #6. Chronic atrial fibrillation, on chronic anticoagulation #7. Acute kidney injury related to acute blood loss anemia and hypotension #8. Lactic acidosis, rule out sepsis #9. History of bladder and prostate cancer, status post urostomy placement #10. Previous history of myocardial infarction Plan: Continue close hemodynamic monitoring, left art line was placed for blood pressure monitoring, patient has a right IJ triple-lumen catheter. Continue mechanical ventilator support, maintain on assist-control mode of ventilation. He has been empirically covered with Zosyn for possibility of aspiration. Continue Protonix. We'll start 0.9 normal seen at a rate of 75 ML per hour, continue bicarb drip. We'll repeat blood gas, and we may possibly discontinue the bicarbonate drip based on those results if the metabolic acidosis is improving. He is nonoliguric. Heart rate is remains tachycardic, but better controlled. Remains on high doses of vasopressor support. Continue serial H&H' s, GI service is following, INR down 1.4. Check stool for C. diff I performed a history & physical examination of the patient and discussed their management with my nurse practitioner, Reyna Greenwood. I reviewed the nurse practitioner's note and agree with the documented findings and plan of care. Lung sounds are positive for coarse breath sounds. The findings and the impression was discussed with the patient. I attest to the documentation by the nurse practitioner. Time with Patient: Greater than 30
[2018-05-05] MEDS: SODIUM CHLORIDE 0.9% 1,000 ML IV SCH (14:02)
[2018-05-05 14:06] LABS: ABG HCO3 21 mmol/L (21-25); ABG Oxygen Saturation 97.3 % (94-97); ABG PCO2 47 mmHg (35-45); ABG PH 7.26 (7.35-7.45); ABG PO2 88 mmHg (83-108); ABG TCO2 23 mmol/L (19-24)
[2018-05-05 14:38] LABS: Anisocytosis Slight; HCT 20.9 % (39.0-53.0); Hypochromasia Moderate; MCH 27.6 pg (25.0-35.0); MCHC 32.8 g/dL (31.0-37.0); MCV 84.1 fL (80.0-100.0); Mean Platelet Volume 11.2; Platelet Count 182 k/uL (150-450); Poikilocytosis Moderate; RBC 2.49 m/uL (4.30-5.90)
[2018-05-05 14:47] LABS: Hemoglobin A1C 6.6 % (4.0-6.0)
[2018-05-05 14:47] LABS: WBC 32.8 k/uL (3.8-10.6)
[2018-05-05 14:48] LABS: HGB 6.9 gm/dL (13.0-17.5)
[2018-05-05 15:13] LABS: Appearance,Urine Cloudy (Clear); Bacteria,Urine Few /hpf; Bilirubin,Urine Negative (Negative); Blood,Urine Small (Negative); Budding Yeast,Urine Occasional /hpf; Color,Urine Light Red; Glucose,Urine (UA) Negative (Negative); Hyaline Casts,Urine 15 /lpf (0-2); Ketones,Urine Negative (Negative); Leukocyte Esterase,Urine Large (Negative); Mucus,Urine Rare /hpf; Nitrite,Urine Negative (Negative); PH, Urine 8.5 (5.0-8.0); Protein,Urine 3+ (Negative); RBC,Urine 23 /hpf (0-5); Specific Gravity,Urine 1.013 (1.001-1.035); Squamous Epithelial Cell,Urine <1 /hpf (0-4); Triple Phosphate Crystal,Urine Moderate /hpf; Uric Acid Crystals,Urine Few /hpf; Urobilinogen,Urine <2.0 mg/dL (<2.0); WBC,Urine 43 /hpf (0-5)
[2018-05-05] MEDS: ISOSORBIDE MONONITRATE ER 30 MG TAB.ER.24H PO SCH (15:24)
[2018-05-05] MEDS: PYRIDOXINE 50 MG TAB PO SCH (15:25)
--- NOTE | 2018-05-05 15:28 | HP ---
HISTORY AND PHYSICAL CHIEF COMPLAINT: Falling and dizziness. HISTORY OF PRESENT ILLNESS: This is another admission for this 77-year-old white male. He came to the emergency room after he complained of feeling dizzy, lightheaded and falling. He also had diarrhea for a week. He stated that the diarrhea had turned "black." When he is in the emergency room he was found to have a hemoglobin of 4.1, and he was hypotensive. He has chronic atrial fibrillation and he has had a history of carcinoma of the bladder. He also had an INR over 10. After he was admitted, he then had a cardiorespiratory arrest in the emergency room. He is intubated. REVIEW OF SYSTEMS: Unobtainable. Past medical history, family history, personal and social histories are known to be significant in that he has had CA of the bladder. He has not had any sequelae. He had a cystectomy. He has history of hypertension. He is not allergic to any medication. He has been on Lasix 40 mg once a day, lisinopril 2.5 mg once a day, metoprolol 75 mg t.i.d., spironolactone 25 mg once a day, Coumadin 5 mg, isosorbide dinitrate 30 mg once daily. He is also on 81 mg aspirin. He does not smoke. LABORATORY STUDIES: Reveal a BUN of 131, creatinine 2.5. White count was 22,200 and blood sugar was at 180. PHYSICAL EXAMINATION: Blood pressure is 85/50 with a pulse of 123 and irregularly irregular. He is afebrile. In general, he appeared to be pale and he was sedated and controlled on the ventilator. Breath sounds are heard on both sides and the cardiac exam is normal. Abdomen is soft, nontender. There are no masses. Ileal conduit for his urine. Extremities are normal. IMPRESSION: 1. Upper gastrointestinal hemorrhage. 2. Blood loss anemia. 3. Cardiorespiratory arrest. 4. Leukocytosis. 5. Prerenal azotemia. 6. History of carcinoma of the bladder. 7. Prolonged INR. PLAN: 1. Bed rest, intensive care. 2. Respiratory support. 3. Forcer Maker consult. 4. Reverse anticoagulation. 5. Transfuse. 6. IV Protonix. 7. Consult with Gastroenterology. MMODL / IJN: [id number] /
--- NOTE | 2018-05-05 15:31 | PN ---
PROGRESS NOTE DATE OF SERVICE: 05/05/2018 CHIEF COMPLAINT: Cardiorespiratory arrest and blood loss anemia with upper gastrointestinal hemorrhage. HISTORY OF PRESENT ILLNESS: This gentleman is stabilizing. He is on a ventilator. It would seem that the bleeding has slowed. PHYSICAL EXAM: Blood pressure is 95/38 with a pulse of 125/80. He remains pale. Breath sounds are heard bilaterally. Cardiac exam is normal and the abdomen is soft. IMPRESSION: 1. Upper gastrointestinal hemorrhage. 2. Prolonged INR. 3. Atrial fibrillation. 4. History of carcinoma of the bladder. 5. Status post cardiorespiratory arrest. PLAN: Continue with ventilator support, transfusion and GI endoscopies once he is stabilized. MMODL / IJN: [id number] /
--- NOTE | 2018-05-05 16:40 | CONS ---
CONSULTATION REASON FOR CONSULTATION: Renal failure. HISTORY OF PRESENT ILLNESS: The patient is a 77-year-old male who was admitted to the hospital for evaluation of weakness, not feeling well. He also has black and dark-colored stools. The patient was extremely weak. He was hypotensive at the time of admission with systolic blood pressure in the 80s. He was found to have a hemoglobin of 4 and INR was greater than 10. Lactic acid was elevated at 4.1. Stool for occult blood was positive. The patient was also in atrial fibrillation with RVR at the time of admission. The patient was eventually intubated. He is currently on the vent. He is maintained on Levophed at about 20 mcg. Patient has had good urine output. He does have an underlying history of bladder cancer, status post urostomy. Potassium was elevated at 5.7. Patient is also acidotic and is currently being started on a bicarb drip. PAST MEDICAL HISTORY: 1. Atrial fibrillation. 2. Bladder cancer and prostatic cancer, status post cystectomy, prostatectomy and urostomy, and status post chemotherapy as well. 3. History of atrial fibrillation. 4. Coronary artery disease with history of myocardial infarction. PAST SURGICAL HISTORY: 1. Cystectomy. 2. Prostatectomy. 3. Urostomy. 4. Adenoidectomy. 5. Tonsillectomy. SOCIAL HISTORY: Patient is a former smoker. He does have a history of 3-4 beers per day consumption. MEDICATIONS PRIOR TO ADMISSION: 1. Imdur. 2. Lasix. 3. Zestril. 4. Aldactone. 5. Lopressor. 6. Coumadin. 7. Multivitamins. ALLERGIES: NONE. REVIEW OF SYSTEMS: As per HPI. Other systems negative and cannot be obtained. PHYSICAL EXAMINATION: Patient is currently sedated. He is on the vent. He is maintained on Levophed. Blood pressure was 113/48, heart rate 110 per minute. He is afebrile. EXAMINATION OF THE HEART: S1, S2. EXAMINATION OF LUNGS: Bilateral breath sounds are heard. ABDOMEN: Soft, non-tender. Examination of lower extremities shows no do edema. WARNING ANALYST exam cannot be performed. LAB: Hemoglobin 6.5, white cell count 32, sodium 135, potassium 5.7, chloride 108, CO2 16, BUN 126, serum creatinine 2.4. UA is not available. ASSESSMENT: 1. Acute kidney injury secondary to hypotension and hypoperfusion, currently nonoliguric with good urine output. I will continue with IV fluids. No nephrotoxic agents on board. Continue to wean off pressors as tolerated. 2. Hyperkalemia associated with acute kidney injury and underlying gastrointestinal bleed. Expect improvement with initiation of bicarb drip. Will repeat electrolytes this evening. 3. Metabolic acidosis secondary to lactic acidosis and from renal failure, currently being started on a Lasix drip. 4. Vent-dependent respiratory failure. 5. Severe anemia with hemoglobin of 4 g/dL at the time of admission secondary to gastrointestinal bleed, status post 4 units packed red blood cell transfusion. 6. Coagulopathy associated with use of anticoagulation prior to admission. 7. Atrial fibrillation with rapid ventricular response, currently with heart rate staying 113 to 110 per minute. PLAN: Continue with the bicarb drip. Repeat electrolytes in a few hours to follow up on the hyperkalemia. Control heart rate and repeat labs in a.m. Thank you for this consultation. We will continue to follow the patient with you during his hospitalization. MMODL / IJN: [id number] /
--- NOTE | 2018-05-05 17:10 | PCN ---
PROCEDURE NOTE OPERATIVE REPORT: Placement of a left radial arterial line. PREOPERATIVE DIAGNOSIS: Acute respiratory failure and gastrointestinal bleeding. POSTOPERATIVE DIAGNOSIS: Acute respiratory failure and gastrointestinal bleeding. ANESTHESIA: None deployed. DESCRIPTION OF THE PROCEDURE: The left wrist was prepared in a sterile fashion and drapes were applied. The left radial artery was palpated, easily cannulated, and a guidewire was placed. An Arrow catheter was placed over the guidewire, the guidewire was removed. Good blood flow was noted, good waveform was also noted and no evidence of any immediate complication. Line was secured using 3.0 silk sutures. MMODL / IJN: [id number] /
[2018-05-05 20:26] LABS: Anisocytosis Slight; HCT 25.7 % (39.0-53.0); Hypochromasia Moderate; MCH 28.2 pg (25.0-35.0); MCHC 32.8 g/dL (31.0-37.0); MCV 85.9 fL (80.0-100.0); Mean Platelet Volume 10.7; Platelet Count 188 k/uL (150-450); Poikilocytosis Moderate; RBC 2.99 m/uL (4.30-5.90); RDW 17.8 % (11.5-15.5)
[2018-05-05 20:30] LABS: HGB 8.4 gm/dL (13.0-17.5); WBC 29.4 k/uL (3.8-10.6)
[2018-05-05 20:38] LABS: Albumin 2.6 g/dL (3.5-5.0); Calcium 8.3 mg/dL (8.4-10.2); Magnesium 2.2 mg/dL (1.6-2.3); Potassium 5.3 mmol/L (3.5-5.1); Total Bilirubin 0.4 mg/dL (0.2-1.3); Total Protein 5.3 g/dL (6.3-8.2)
[2018-05-05] MEDS: PANTOPRAZOLE 40 MG/10 ML VIAL IV SCH (21:20)
[2018-05-06] MEDS: PIPERACILLIN-TAZOBACTAM 3.375 GM in DEXTROSE/WATER 1 50ML.BAG IVPB SCH ×3 (01:06→15:39)
[2018-05-06] MEDS: DEXTROSE 5% IN WATER 1,000 ML with SODIUM BICARB (1 MEQ/ML) 150 ML IV SCH (02:14)
[2018-05-06] MEDS: HYDROCORTISONE SUCCINATE 100 MG/2 ML VIAL IV SCH ×3 (02:19→15:01)
[2018-05-06] MEDS: PROPOFOL 1,000 MG in EMPTY BAG 1 BAG IV SCH ×6 (03:18→23:39)
[2018-05-06] MEDS: NOREPINEPHRINE 16 MG in DEXTROSE 5% IN WATER 250 ML IV SCH ×2 (03:21)
[2018-05-06] MEDS: SODIUM CHLORIDE 0.9% 1,000 ML IV SCH ×3 (03:22→23:40)
[2018-05-06 04:24] LABS: Anisocytosis Slight; Basophils # (A) 0.1 k/uL (0-0.2); Basophils % (A) 0 %; Eosinophils % (A) 0 %; HCT 26.4 % (39.0-53.0); HGB 8.6 gm/dL (13.0-17.5); Hypochromasia Slight; Lymphocytes # (A) 0.7 k/uL (1.0-4.8); Lymphocytes % (A) 3 %; MCH 27.6 pg (25.0-35.0); MCHC 32.6 g/dL (31.0-37.0); MCV 84.8 fL (80.0-100.0); Mean Platelet Volume 11.3; Monocytes # (A) 2.9 k/uL (0-1.0); Monocytes % (A) 10 %; Neutrophils # (A) 24.2 k/uL (1.3-7.7); Neutrophils % (A) 85 %; Platelet Count 202 k/uL (150-450); Poikilocytosis Moderate; RBC 3.11 m/uL (4.30-5.90)
[2018-05-06 04:27] LABS: WBC 28.4 k/uL (3.8-10.6)
[2018-05-06 04:29] LABS: INR 1.7 (<1.2); Prothrombin Time 15.3 sec (9.0-12.0)
[2018-05-06 04:45] LABS: Calcium 8.2 mg/dL (8.4-10.2); Magnesium 2.4 mg/dL (1.6-2.3); Phosphorus 4.7 mg/dL (2.5-4.5); Potassium 5.1 mmol/L (3.5-5.1)
[2018-05-06 07:11] LABS: ABG Base Excess -0.4 mmol/L; ABG HCO3 26 mmol/L (21-25); ABG PCO2 48 mmHg (35-45); ABG PH 7.34 (7.35-7.45); ABG PO2 114 mmHg (83-108); ABG TCO2 27 mmol/L (19-24)
[2018-05-06] MEDS: IPRATROPIUM-ALBUTEROL 3 ML NEB INHALATION PRN ×3 (07:44→19:21)
--- NOTE | 2018-05-06 08:19 | XR ---
EXAMINATION TYPE: XR chest 1V DATE OF EXAM: 05/06/2018 COMPARISON: 05/05/2018 HISTORY: Difficulty breathing. TECHNIQUE: Single frontal view of the chest is obtained. FINDINGS: There is increasing opacity at the left lung base and nonvisualization of the left hemidia phragm partially due to field of view and partially due to new obscuration in the retrocardiac airspa ce. There remains interstitial edema and chronic background emphysema. Enteric tube, endotracheal tub e, and right internal jugular central venous catheter are similar in position. Degenerative changes o f the spine and shoulders are again noted. Heart is enlarged. IMPRESSION: New retrocardiac and left basilar opacity likely representing atelectasis and confluent edema although developing pneumonia is also a possibility. Mild interstitial pulmonary edema is again seen favored to be on the basis of decompensated congestive heart failure.
[2018-05-06] MEDS: PANTOPRAZOLE 40 MG/10 ML VIAL IV SCH ×2 (08:25→20:11)
[2018-05-06] MEDS: METOPROLOL TARTRATE 25 MG TAB PO SCH ×3 (08:26→20:48)
[2018-05-06] MEDS: metroNIDAZOLE 500 MG TAB PO SCH ×3 (08:26→22:37)
[2018-05-06] MEDS: CHLORHEXIDINE GLUCONATE 15 ML CUP MUCOUS MEM SCH ×2 (08:27→20:10)
--- NOTE | 2018-05-06 09:53 | P.PN ---
Subjective Progress Note Date: 05/06/18 Principal diagnosis: GI bleed No active bleeding. 6 units of blood 2 FFP. Quad strength Levophed. OGT nonbloody drainage. Hemoglobin 8.6. Objective - Vital Signs Vital signs: Vital Signs Temp 97.9 F 05/06/18 08:00 Pulse 98 05/06/18 09:00 Resp 25 H 05/06/18 09:00 BP 115/60 05/06/18 09:00 Pulse Ox 96 05/06/18 09:00 Intake & Output 05/05/18 05/06/18 05/06/18 18:59 06:59 18:59 Intake Total 2073.508 2429.414 469.02 Output Total 1245 1320 495 Balance 396.830 5173.414 -25.98 Weight 102.5 kg 101.5 kg 101.5 kg Intake: IV 999 1733 378 D5 Hco3 375 825 225 Piperacillin-Tazobactam 3 50 .375 gm In Dextrose/Water 1 50ml.bag @ 12.5 mls/hr IVPB Q8HR OLIVE Rx#: [id number] Pressure Bag 24 33 3 Sodium Chloride 0.9% 1, 600 825 150 000 ml @ 75 mls/hr IV . [id number] STA Rx#:[id number] Intake, IV Titration 454.508 386.414 91.02 Amount Norepinephrine 16 mg In 209.816 286.414 Dextrose 5% in Water 250 ml @ Titrate IV .Q0M OLIVE Rx#:[id number] Propofol 1,000 mg In 244.692 100 91.02 Empty Bag 1 bag @ Titrate IV .Q0M OLIVE Rx#: [id number] Blood Product 620 310 Rc As-1 Unit 0 310 [id number] Rc As-1 Unit 310 [id number] Rc As-1 Unit 310 [id number] Output: Urine 1245 1320 495 Other: Voiding Method Ileal Conduit (Right) Ileal Conduit (Right) Ileal Conduit ( Right) ABP, PAP, CO, CI - Last Documented Arterial Blood Pressure 116/55 - Exam General appearance: The patient is intubated sedated HET: Head is normocephalic and atraumatic. Pupils are equal and reactive. Oropharynx is clear without lesions. Oral gastric tube nonbloody bilious drainage. Neck: Supple without lymphadenopathy. Trachea midline. Endotracheal tube intact. Heart: S1 S2. Lungs: No crackles or wheezes are heard. Abdomen: Soft, nontender, nondistended with bowel sounds. No peritoneal signs. No palpable organomegaly or masses. Urostomy clear yellow urine. Extremities: Normal skin color and turgor. No cyanosis, rash, ulceration, clubbing, or edema. Radial and pedal pulses are 2/4 bilaterally. Neurological: Unable to assess sedation - Labs CBC & Chem 7: 05/06/18 04:15 05/06/18 04:15 Labs: Abnormal Lab Results - Last 24 Hours (Table) 05/04/18 05/04/18 05/05/18 Range/Units 19:42 19:42 02:30 WBC (3.8-10.6) k/uL RBC (4.30-5.90) m/uL Hgb (13.0-17.5) gm/dL Hct (39.0-53.0) % RDW (11.5-15.5) % Neutrophils # (1.3-7.7) k/uL Lymphocytes # (1.0-4.8) k/uL Monocytes # (0-1.0) k/uL PT (9.0-12.0) sec INR (<1.2) ABG pH (7.35-7.45) ABG pCO2 (35-45) mmHg ABG pO2 (83-108) mmHg ABG HCO3 (21-25) mmol/L ABG Total CO2 (19-24) mmol/L ABG O2 Saturation (94-97) % Potassium (3.5-5.1) mmol/L Chloride (98-107) mmol/L Carbon Dioxide (22-30) mmol/L BUN (9-20) mg/dL Creatinine (0.66-1.25) mg/dL Glucose (74-99) mg/dL Hemoglobin A1c 6.6 H (4.0-6.0) % Calcium (8.4-10.2) mg/dL Phosphorus (2.5-4.5) mg/dL Magnesium (1.6-2.3) mg/dL Total Protein (6.3-8.2) g/dL Albumin (3.5-5.0) g/dL Urine pH 8.5 H (5.0-8.0) Urine Protein 3+ H (Negative) Urine Blood Small H (Negative) Ur Leukocyte Esterase Large H (Negative) Urine RBC 23 H (0-5) /hpf Urine WBC 43 H (0-5) /hpf Urine WBC Clumps Occasional H (None) /hpf Uric Acid Crystals Few H (None) /hpf Triple Phos Crystals Moderate H (None) /hpf Urine Bacteria Few H (None) /hpf Hyaline Casts 15 H (0-2) /lpf Urine Mucus Rare H (None) /hpf Urine Yeast (Budding) Occasional H (None) /hpf Crossmatch See Detail 05/05/18 05/05/18 05/05/18 Range/Units 10:00 13:58 14:04 WBC 32.8 H* (3.8-10.6) k/uL RBC 2.49 L (4.30-5.90) m/uL Hgb 6.9 L* (13.0-17.5) gm/dL Hct 20.9 L (39.0-53.0) % RDW 18.0 H (11.5-15.5) % Neutrophils # (1.3-7.7) k/uL Lymphocytes # (1.0-4.8) k/uL Monocytes # (0-1.0) k/uL PT 13.4 H (9.0-12.0) sec INR 1.4 H (<1.2) ABG pH 7.26 L (7.35-7.45) ABG pCO2 47 H (35-45) mmHg ABG pO2 (83-108) mmHg ABG HCO3 (21-25) mmol/L ABG Total CO2 (19-24) mmol/L ABG O2 Saturation 97.3 H (94-97) % Potassium (3.5-5.1) mmol/L Chloride (98-107) mmol/L Carbon Dioxide (22-30) mmol/L BUN (9-20) mg/dL Creatinine (0.66-1.25) mg/dL Glucose (74-99) mg/dL Hemoglobin A1c (4.0-6.0) % Calcium (8.4-10.2) mg/dL Phosphorus (2.5-4.5) mg/dL Magnesium (1.6-2.3) mg/dL Total Protein (6.3-8.2) g/dL Albumin (3.5-5.0) g/dL Urine pH (5.0-8.0) Urine Protein (Negative) Urine Blood (Negative) Ur Leukocyte Esterase (Negative) Urine RBC (0-5) /hpf Urine WBC (0-5) /hpf Urine WBC Clumps (None) /hpf Uric Acid Crystals (None) /hpf Triple Phos Crystals (None) /hpf Urine Bacteria (None) /hpf Hyaline Casts (0-2) /lpf Urine Mucus (None) /hpf Urine Yeast (Budding) (None) /hpf Crossmatch 05/05/18 05/05/18 05/06/18 Range/Units 20:15 20:15 04:15 WBC 29.4 H* (3.8-10.6) k/uL RBC 2.99 L (4.30-5.90) m/uL Hgb 8.4 L D (13.0-17.5) gm/dL Hct 25.7 L (39.0-53.0) % RDW 17.8 H (11.5-15.5) % Neutrophils # (1.3-7.7) k/uL Lymphocytes # (1.0-4.8) k/uL Monocytes # (0-1.0) k/uL PT (9.0-12.0) sec INR (<1.2) ABG pH (7.35-7.45) ABG pCO2 (35-45) mmHg ABG pO2 (83-108) mmHg ABG HCO3 (21-25) mmol/L ABG Total CO2 (19-24) mmol/L ABG O2 Saturation (94-97) % Potassium 5.3 H (3.5-5.1) mmol/L Chloride 109 H 109 H (98-107) mmol/L Carbon Dioxide 21 L (22-30) mmol/L BUN 106 H* 92 H* (9-20) mg/dL Creatinine 2.50 H 2.33 H (0.66-1.25) mg/dL Glucose 249 H 230 H (74-99) mg/dL Hemoglobin A1c (4.0-6.0) % Calcium 8.3 L 8.2 L (8.4-10.2) mg/dL Phosphorus 5.0 H 4.7 H (2.5-4.5) mg/dL Magnesium 2.4 H (1.6-2.3) mg/dL Total Protein 5.3 L (6.3-8.2) g/dL Albumin 2.6 L (3.5-5.0) g/dL Urine pH (5.0-8.0) Urine Protein (Negative) Urine Blood (Negative) Ur Leukocyte Esterase (Negative) Urine RBC (0-5) /hpf Urine WBC (0-5) /hpf Urine WBC Clumps (None) /hpf Uric Acid Crystals (None) /hpf Triple Phos Crystals (None) /hpf Urine Bacteria (None) /hpf Hyaline Casts (0-2) /lpf Urine Mucus (None) /hpf Urine Yeast (Budding) (None) /hpf Crossmatch 05/06/18 05/06/18 05/06/18 Range/Units 04:15 04:15 07:09 WBC 28.4 H* (3.8-10.6) k/uL RBC 3.11 L (4.30-5.90) m/uL Hgb 8.6 L (13.0-17.5) gm/dL Hct 26.4 L (39.0-53.0) % RDW 18.0 H (11.5-15.5) % Neutrophils # 24.2 H (1.3-7.7) k/uL Lymphocytes # 0.7 L (1.0-4.8) k/uL Monocytes # 2.9 H (0-1.0) k/uL PT 15.3 H (9.0-12.0) sec INR 1.7 H (<1.2) ABG pH 7.34 L (7.35-7.45) ABG pCO2 48 H (35-45) mmHg ABG pO2 114 H (83-108) mmHg ABG HCO3 26 H (21-25) mmol/L ABG Total CO2 27 H (19-24) mmol/L ABG O2 Saturation 99.0 H (94-97) % Potassium (3.5-5.1) mmol/L Chloride (98-107) mmol/L Carbon Dioxide (22-30) mmol/L BUN (9-20) mg/dL Creatinine (0.66-1.25) mg/dL Glucose (74-99) mg/dL Hemoglobin A1c (4.0-6.0) % Calcium (8.4-10.2) mg/dL Phosphorus (2.5-4.5) mg/dL Magnesium (1.6-2.3) mg/dL Total Protein (6.3-8.2) g/dL Albumin (3.5-5.0) g/dL Urine pH (5.0-8.0) Urine Protein (Negative) Urine Blood (Negative) Ur Leukocyte Esterase (Negative) Urine RBC (0-5) /hpf Urine WBC (0-5) /hpf Urine WBC Clumps (None) /hpf Uric Acid Crystals (None) /hpf Triple Phos Crystals (None) /hpf Urine Bacteria (None) /hpf Hyaline Casts (0-2) /lpf Urine Mucus (None) /hpf Urine Yeast (Budding) (None) /hpf Crossmatch Microbiology - Last 24 Hours (Table) 05/04/18 19:40 Blood Culture - Preliminary Blood No Growth after 24 hours 05/05/18 02:30 Urine Culture - Preliminary Urine,Clean Catch Assessment and Plan (1) GI bleed Narrative/Plan: Reports of black colored bowel movements possible peptic ulcer disease possible bleeding angiectasia however small bowel possible colonic source cannot be entirely excluded. Current Visit: Yes Status: Acute Code(s): K92.2 - GASTROINTESTINAL HEMORRHAGE, UNSPECIFIED SNOMED Code(s): 45332285 (2) Warfarin-induced coagulopathy Current Visit: Yes Status: Acute Code(s): D68.32 - HEMORRHAGIC DISORD D/T EXTRINSIC CIRCULATING ANTICOAGULANTS; T45.515A - ADVERSE EFFECT OF ANTICOAGULANTS, INITIAL ENCOUNTER SNOMED Code(s): 73916902 (3) Acute blood loss anemia Current Visit: Yes Status: Acute Code(s): D62 - ACUTE POSTHEMORRHAGIC ANEMIA SNOMED Code(s): 444264931 (4) History of atrial fibrillation Current Visit: Yes Status: Acute Code(s): Z86.79 - PERSONAL HISTORY OF OTHER DISEASES OF THE CIRCULATORY SYSTEM SNOMED Code(s): 819820564 (5) History of prostate cancer Current Visit: Yes Status: Acute Code(s): Z85.46 - PERSONAL HISTORY OF MALIGNANT NEOPLASM OF PROSTATE SNOMED Code(s): 137716365 (6) Atrial fibrillation with RVR Current Visit: Yes Status: Acute Code(s): I48.91 - UNSPECIFIED ATRIAL FIBRILLATION SNOMED Code(s): 919807899591193 Plan: 1. Continue with present medical therapy. Continue with Protonix 40 mg IV twice daily. EGD will be contingent on clinical course presently not actively bleeding hemoglobin stable. Anticoagulation on hold. We'll continue to follow daily. Assessment and plan a care discussed with Dr. Su
--- NOTE | 2018-05-06 10:51 | CDI ---
Last Revision, August 2017 Documentation Clarification Form Date: 05/06/2018 10:37:21 AM From: Olive Alcazar RN, CCDS Admit Date: 05/04/2018 8:57:00 PM Patient Name: Baudilio Putnam Visit Number: [id number] ATTENTION: The Clinical Documentation Specialists (CDI) and [facility] Coding Staff appreciate your assistance in clarifying documentation. Please respond to the clarification below the line at the bottom and electronically sign. The CDI & [facility] Coding staff will review the response and follow-up if needed. Please note: Queries are made part of the Legal Health Record. If you have any questions, please contact the author of this message via ITS. Freya Gallegos MD/ Reyna Greenwood CNP Hypotension is documented in several places in the medical record and requires further specificity. Patient history/risk factors: Pt became severely restless and agitated in EC with INR > 10, patient was intubated and lined in EC Clinical Indicators: 05/05 Pulmonary Consult: "Altered mentation, likely related to hypovolemia, and possibly related to sepsis 05/05 H&P: "" When he is in the emergency room he was found to have hemoglobin of 4.1, and he was hypotensive. After he was admitted, he then had a cardiorespiratory arrest in the emergency room." Vitals: Temp 97.1, HR 72, RR 16, B/P 85/50, Spo2 95% 2L NC Treatment: 6 units PRBC's Transfused 2 U FFP Transfused Levophed Gtt titrate for B/P 1L IVF Bolus In your professional opinion, can you please specify the type of shock if known ? Hypovolemic Shock Cause Septic Shock Suspected or known causative organism Any associated organ failure Cardiogenic Shock Cause Other, please specify Unable to determine Please continue to document in your progress notes and discharge summary in order to capture severity of illness and risk of mortality. Include clinical findings that support your diagnosis. Hypotension related to hypovolemia secondary to acute GI blood loss anemia and sepsis MTDD
--- NOTE | 2018-05-06 11:08 | CDI ---
Last Revision, August 2017 Documentation Clarification Form Date: 05/06/2018 10:51:48 AM From: Olive Alcazar RN, CCDS Admit Date: 05/04/2018 8:57:00 PM Patient Name: Baudilio Putnam Visit Number: [id number] ATTENTION: The Clinical Documentation Specialists (CDI) and [facility] Coding Staff appreciate your assistance in clarifying documentation. Please respond to the clarification below the line at the bottom and electronically sign. The CDI & [facility] Coding staff will review the response and follow-up if needed. Please note: Queries are made part of the Legal Health Record. If you have any questions, please contact the author of this message via ITS. Freya Gallegos MD/Reyna Greenwood CNP Altered mental status was documented in the Pulmonary Consult and requires further specificity. Patient history/risk factors: Atrial Fib, [place], bladder and prostate Ca with urostomy, Smoker Clinical Indicators: 05/05 Pulmonary Consult: "Altered mentation, likely related to hypovolemia, and possibly related to sepsis." 05/04 EC Note: "She was getting very restless she was pulling his IVs and now there was a significant mental status change is present was getting worse respiratory rate has gone up to auscultation heart was stopping at that point with the ketamine patient was intubated..." Labs: WBC: 22.2/32/32.8, Hgb: 4.1/6.5/6.9, Neutrophils 19.5/29.1, INR >10, BUN 131/126, Creatinine 2.5/2.4, + Occult stool, + U/A 05/06 CXR: "New retrocardiac and left basilar opacity likely representing atelectasis and confluent edema although developing pneumonia is also a possibility. Mild interstitial pulmonary edema is again seen favored to be on the basis of decompensated congestive heart failure." 05/05 CT Brain: "OLD RIGHT INTERNAL CAPSULE LACUNAR INFARCT. CEREBRAL ATROPHY. NO ACUTE INTRACRANIAL ABNORMALITY." Treatment: Intubation and Sedation with IV Diprovan Gtt Vasopressors- Levophed Gtt titrate for B/P IVF Bolus D5HCO3 drip IV Steroids Q 8 hrs IV Zosyn Q 8 hrs In your professional opinion, please clarify the etiology of the altered mental status, if known. Encephalopathy (Specify Type- Metabolic, Anoxic, Toxic and cause if known) Other condition (please specify) Unable to determine Please continue to document in your progress notes and discharge summary in order to capture severity of illness and risk of mortality. Include clinical findings that support your diagnosis. Metabolic encephalopathy related to sepsis MTDD
--- NOTE | 2018-05-06 11:27 | CDI ---
Last Revision, August 2017 Documentation Clarification Form Date: 05/06/2018 11:13:50 AM From: Olive Alcazar RN, CCDS Admit Date: 05/04/2018 8:57:00 PM Patient Name: Baudilio Putnam Visit Number: [id number] ATTENTION: The Clinical Documentation Specialists (CDI) and [facility] Coding Staff appreciate your assistance in clarifying documentation. Please respond to the clarification below the line at the bottom and electronically sign. The CDI & [facility] Coding staff will review the response and follow-up if needed. Please note: Queries are made part of the Legal Health Record. If you have any questions, please contact the author of this message via ITS. Baudilio Rubi MD Cardiopulmonary arrest is documented by the Attending MD and requires further specificity. Patient history/risk factors: Atrial Fib, Cancer, GIB w/INR of >10 this admission Clinical Indicators: EC Documentation: Intubation. She was getting very restless she was pulling his IVs and now there was a significant mental status change is present was getting worse respiratory rate has gone up to auscultation heart was stopping at that point with the ketamine patient was intubated" H&P: "After he was admitted, he then had a cardiorespiratory arrest in the emergency room." 05/05 Attending Progress Note: "Cardiorespiratory arrest and blood loss anemia with upper gastrointestinal hemorrhage." 05/06 CXR:"New retrocardiac and left basilar opacity likely representing atelectasis and confluent edema although developing pneumonia is also a possibility. Mild interstitial pulmonary edema is again seen favored to be on the basis of decompensated congestive heart failure." Labs: lactic Acid 4.1, HGB 4.1/6.5/6.9, WBC 22.2/32/32.8 Vital Signs: Temp 97.1, HR 72, RR 16, B/P 85/50, Spo2 95% 2L NC Treatment: Oxygen: pt intubated in EC on MV Medication: Ivf Bolus, 6 units PRBC's Consults: Pulmonary, Nephro, GI Please document confirmation of the diagnosis of Cardiopulmonary Arrest in your progress notes and/or discharge summary, along with its associated clinical indicators (i.e., signs, symptoms, findings, treatments, monitoring). If this condition was ruled out or documented in error, please indicate in your progress notes and/or discharge summary. Cardiopulmonary Arrest ruled out Cardiopulmonary Arrest d/t (please specify underlying cause of Arrest) Unable to determine Other (please Specify) Please continue to document in your progress notes and discharge summary in order to capture severity of illness and risk of mortality. Include clinical findings that support your diagnosis. MTDD
--- NOTE | 2018-05-06 11:41 | CDI ---
Last Revision, August 2017 Documentation Clarification Form Date: 05/06/18 1138 From: Olive Alcazar RN, CCDS Admit Date: 05/04/2018 8:57:00 PM Patient Name: Baudilio Putnam Visit Number: [id number] ATTENTION: The Clinical Documentation Specialists (CDI) and [facility] Coding Staff appreciate your assistance in clarifying documentation. Please respond to the clarification below the line at the bottom and electronically sign. The CDI & [facility] Coding staff will review the response and follow-up if needed. Please note: Queries are made part of the Legal Health Record. If you have any questions, please contact the author of this message via ITS. Freya Gallegos MD/ Reyna Greenwood CNP History/Risk Factors: Atrial Fib, Cancer, [place] Tobacco use: current smoker Clinical Indicators: 05/04 EC Note: "She was getting very restless she was pulling his IVs and now there was a significant mental status change is present was getting worse respiratory rate has gone up to auscultation heart was stopping at that point with the ketamine patient was intubated." 05/05 Pulmonary Procedure Note: "Acute respiratory failure and gastrointestinal bleeding." 05/05 Pulmonary Lung/Breathing assessment: LUNGS: "Equal air entry with coarse breath sounds, scattered rhonchi." ABG/CBG: pH 7.09 pCO2 50 Po2 370 pHCO3 15 Lactate- 14.6 Treatment: Breathing TX: Duoneb Q 2 hrs PRN Continuous Pulse ox: per ICU Protocol Vent: Intubated in EC O2; Titrated per ABG's by MD In your professional opinion, can you please clarify the type of Acute respiratory Failure Specificity: Respiratory Failure, further specify (if known): With hypercapnia? With hypoxia? Other Diagnosis, please specify Unable to determine Please continue to document in your progress notes and discharge summary in order to capture severity of illness and risk of mortality. Include clinical findings that support your diagnosis. MTDD
[2018-05-06] MEDS: FLUCONAZOLE IN NACL,ISO-OSM 100 MG in SALINE 1 50ML.BAG IVPB SCH (13:46)
[2018-05-06] MEDS: ISOSORBIDE MONONITRATE ER 30 MG TAB.ER.24H PO SCH (14:13)
[2018-05-06] MEDS: PYRIDOXINE 50 MG TAB PO SCH (15:00)
--- NOTE | 2018-05-06 15:47 | P.PN ---
Subjective Progress Note Date: 05/06/18 Mr. Raygoza is a 77-year-old white male patient of Dr. De Leon, who was brought in to the emergency department on the weight of 2018 at 1900 by the ambulance for evaluation of weakness, weeklong history of diarrhea, black tarry stools, falls, hypotension. EMS noted his blood pressure was 82/50, patient was feeling very faint, feeling like he was going to pass out. Denied any chest pain, complained of mild abdominal discomfort. Patient has past medical history of chronic atrial fibrillation, and patient is on Coumadin for anticoagulation. In the emergency department initial blood work revealed a CBC of 22.2, hemoglobin of 4.1, white count was 112, INR was greater than 10, sodium is 137, potassium was 5.0, B1 is 131, creatinine is 2.5. Lactic acid was elevated at 4.1, troponin was negative. Occult stool was positive. EKG showed A. fib with rapid ventricular response with a rate of 127 BPM. Patient has seemed a total of 4 units of packed red blood cells, 2 units of fresh frozen plasma, and follow-up labs showed hemoglobin of 6.5, WBC of 32, INR is down to 1.4. BUN of 126, creatinine is 2.40. Lactic acidosis has improved, and plasma lactic acid is currently down to 2.0. 10 mg of vitamin K was also given. Patient was started on IV Protonix, and GI service has been consulted. While in the emergency department he was noted to have progressively decreasing level of consciousness, and there was a concern about cerebral bleed. Patient was intubated and placed on mechanical ventilator. We're seeing the patient in consultation the intensive care unit, he remains sedated, on mechanical ventilator, on assist control mode of ventilation, with a rate of 22, tidal vital 400, FiO2 40%, PEEP of 5. IV D5W with 3 A of bicarb is infusing at a rate of 75 cc/hr, Diprivan and is at 40 mcg/kg/min, and levofed is at 22 mcg/ min. On empiric antibiotics in the form of Zosyn for a concern of aspiration pneumonia, chest x-ray showed mild pulmonary vascular congestion, enlarged heart. Postintubation chest x-ray showed ET tube approximately 6 cm from the luisa, NG tube in the appropriate position, no pneumothorax, some pulmonary interstitial edema. Brain CT showed old right internal capsule lacunar infarct , cerebral atrophy, but no acute intracranial abnormality. His mornings chest x -ray is overall stable findings, with mild underlying emphysematous change and cardiomegaly without acute infiltrate. Patient remains afebrile, remains in atrial fibrillation and currently remains tachycardic with a rate from 115 to 124 BPM. Other medical history includes bladder cancer, and prostate cancer, status post urostomy placement and chemotherapy in 2006, current smoker, previous history of myocardial infarction. Patient's urostomy bag is connected to a Rocha drainage bag, and he is having urine output in the order of 50-125 ML per hour. On 05/06/2018 the patient is being seen for a follow-up. Is a 77-year-old male patient was hospitalized for bloody stool, black tarry stool and generalized weakness and falls and hypotension. The patient came into the emergency department quite hypotensive and hemodynamically unstable. He is also known to have chronic atrial fibrillation. He was Coumadin toxic at a time of admission. Note that the patient was having also some altered mentation. He was ultimately intubated and placed on a mechanical ventilator and he was brought up to the ICU. This morning is an assist-control mode of ventilation. He is on assist control of 22, tidal volume of 400 with an FiO2 of 40% and PEEP of 5. The blood gases from this morning shows a pH of 7.34 with a pCO2 of 48 and pO2 of 114 and this was done and FiO2 of 40%. The chest x-ray from today shows adequate positioning of the ET tube. The patient also has a subclavian triple-lumen catheter on the right. There is also a left-sided pleural effusion and underlying left lower lobe pneumonia cannot be completely excluded. He does have some baseline cardiomegaly. Note that since yesterday, the patient was fluid resuscitated and he was in the bicarb drip. Was acidotic and the bicarb level subsequently improved and is up to 26 and this morning the bicarb level was 26 and the bicarb infusion was discontinued. Kidney function is also impaired. The patient is currently in acute kidney injury. Creatinine has dropped down to 2.3. As for the white cell count, the patient presented with a white cell count of 32.8 and current white cell count is 28.4. The blood culture is negative. Urine culture showing gram-negative bacillus. The initial urinalysis also showed some budding yeast. Based on all this, the patient is covered with antibiotics. The current antibiotic coverage included Zosyn and I added Diflucan addition. He is currently on normal saline at the rate of 75 mL an hour. Echocardiogram is pending for now. Noted the patient has history of bladder cancer and prostate cancer and he is post urostomy there was placed in 2005. He is known to have coronary artery disease. He has had previous IN. He is a smoker. Objective - Vital Signs Vital signs: Vital Signs Temp 97.1 F L 05/06/18 12:00 Pulse 102 H 05/06/18 15:40 Resp 16 05/06/18 15:32 BP 109/56 05/06/18 14:30 Pulse Ox 98 05/06/18 15:32 Intake & Output 05/05/18 05/06/18 05/06/18 18:59 06:59 18:59 Intake Total 2073.508 2429.414 989.02 Output Total 1245 1320 1230 Balance 348.059 0197.414 -240.98 Weight 102.5 kg 101.5 kg 101.5 kg Intake: IV 999 1733 798 D5 Hco3 375 825 225 Piperacillin-Tazobactam 3 50 .375 gm In Dextrose/Water 1 50ml.bag @ 12.5 mls/hr IVPB Q8HR [facility] Rx#: [id number] Pressure Bag 24 33 3 Sodium Chloride 0.9% 1, 420 000 ml @ 70 mls/hr IV . [id number] [facility] Rx#:[id number] Sodium Chloride 0.9% 1, 600 825 150 000 ml @ 75 mls/hr IV . [id number] [facility] Rx#:[id number] Intake, IV Titration 454.508 386.414 191.02 Amount Norepinephrine 16 mg In 209.816 286.414 Dextrose 5% in Water 250 ml @ Titrate IV .Q0M [facility] Rx#:[id number] Propofol 1,000 mg In 244.692 100 191.02 Empty Bag 1 bag @ Titrate IV .Q0M [facility] Rx#: [id number] Blood Product 620 310 Rc As-1 Unit 0 310 [id number] Rc As-1 Unit 310 [id number] Rc As-1 Unit 310 [id number] Output: Urine 1245 1320 1230 Other: Voiding Method Ileal Conduit (Right) Ileal Conduit (Right) Ileal Conduit ( Right) ABP, PAP, CO, CI - Last Documented Arterial Blood Pressure 104/53 - Exam GENERAL EXAM: 77-year-old elderly white male, sedated and intubated, on mechanical ventilator in no apparent distress. HEAD: Normocephalic/atraumatic. EYES: Normal reaction of pupils, equal size. Conjunctiva pink, sclera white. NOSE: Clear with pink turbinates. THROAT: No erythema or exudates. NECK: No masses, no JVD, no thyroid enlargement, no adenopathy. The patient has a right IJ triple lumen catheter in place. CHEST: No chest wall deformity. Symmetrical expansion. LUNGS: Equal air entry with coarse breath sounds, scattered rhonchi CVS: Irregular rate and rhythm, normal S1 and S2, no gallops, no murmurs, no rubs ABDOMEN: Soft, nontender. No hepatosplenomegaly, normal bowel sounds, no guarding or rigidity. There is a urostomy present on right abdomen, and active to a Rocha drainage bag with clear yellow urine EXTREMITIES: No clubbing, no edema, no cyanosis, 2+ pulses and upper and lower extremities. MUSCULOSKELETAL: Muscle strength and tone normal. SPINE: No scoliosis or deformity SKIN: No rashes CENTRAL NERVOUS SYSTEM: Sedated, on mechanical ventilator No focal deficits, tone is normal in all 4 extremities. PSYCHIATRIC: To assess, sedated - Labs CBC & Chem 7: 05/06/18 04:15 05/06/18 04:15 Labs: Abnormal Lab Results - Last 24 Hours (Table) 05/04/18 05/04/18 05/05/18 Range/Units 19:42 19:42 20:15 WBC 29.4 H* (3.8-10.6) k/uL RBC 2.99 L (4.30-5.90) m/uL Hgb 8.4 L D (13.0-17.5) gm/dL Hct 25.7 L (39.0-53.0) % RDW 17.8 H (11.5-15.5) % Neutrophils # (1.3-7.7) k/uL Lymphocytes # (1.0-4.8) k/uL Monocytes # (0-1.0) k/uL PT (9.0-12.0) sec INR (<1.2) ABG pH (7.35-7.45) ABG pCO2 (35-45) mmHg ABG pO2 (83-108) mmHg ABG HCO3 (21-25) mmol/L ABG Total CO2 (19-24) mmol/L ABG O2 Saturation (94-97) % Potassium (3.5-5.1) mmol/L Chloride (98-107) mmol/L Carbon Dioxide (22-30) mmol/L BUN (9-20) mg/dL Creatinine (0.66-1.25) mg/dL Glucose (74-99) mg/dL Hemoglobin A1c 6.6 H (4.0-6.0) % Calcium (8.4-10.2) mg/dL Phosphorus (2.5-4.5) mg/dL Magnesium (1.6-2.3) mg/dL Total Protein (6.3-8.2) g/dL Albumin (3.5-5.0) g/dL Crossmatch See Detail 05/05/18 05/06/18 05/06/18 Range/Units 20:15 04:15 04:15 WBC (3.8-10.6) k/uL RBC (4.30-5.90) m/uL Hgb (13.0-17.5) gm/dL Hct (39.0-53.0) % RDW (11.5-15.5) % Neutrophils # (1.3-7.7) k/uL Lymphocytes # (1.0-4.8) k/uL Monocytes # (0-1.0) k/uL PT 15.3 H (9.0-12.0) sec INR 1.7 H (<1.2) ABG pH (7.35-7.45) ABG pCO2 (35-45) mmHg ABG pO2 (83-108) mmHg ABG HCO3 (21-25) mmol/L ABG Total CO2 (19-24) mmol/L ABG O2 Saturation (94-97) % Potassium 5.3 H (3.5-5.1) mmol/L Chloride 109 H 109 H (98-107) mmol/L Carbon Dioxide 21 L (22-30) mmol/L BUN 106 H* 92 H* (9-20) mg/dL Creatinine 2.50 H 2.33 H (0.66-1.25) mg/dL Glucose 249 H 230 H (74-99) mg/dL Hemoglobin A1c (4.0-6.0) % Calcium 8.3 L 8.2 L (8.4-10.2) mg/dL Phosphorus 5.0 H 4.7 H (2.5-4.5) mg/dL Magnesium 2.4 H (1.6-2.3) mg/dL Total Protein 5.3 L (6.3-8.2) g/dL Albumin 2.6 L (3.5-5.0) g/dL Crossmatch 05/06/18 05/06/18 Range/Units 04:15 07:09 WBC 28.4 H* (3.8-10.6) k/uL RBC 3.11 L (4.30-5.90) m/uL Hgb 8.6 L (13.0-17.5) gm/dL Hct 26.4 L (39.0-53.0) % RDW 18.0 H (11.5-15.5) % Neutrophils # 24.2 H (1.3-7.7) k/uL Lymphocytes # 0.7 L (1.0-4.8) k/uL Monocytes # 2.9 H (0-1.0) k/uL PT (9.0-12.0) sec INR (<1.2) ABG pH 7.34 L (7.35-7.45) ABG pCO2 48 H (35-45) mmHg ABG pO2 114 H (83-108) mmHg ABG HCO3 26 H (21-25) mmol/L ABG Total CO2 27 H (19-24) mmol/L ABG O2 Saturation 99.0 H (94-97) % Potassium (3.5-5.1) mmol/L Chloride (98-107) mmol/L Carbon Dioxide (22-30) mmol/L BUN (9-20) mg/dL Creatinine (0.66-1.25) mg/dL Glucose (74-99) mg/dL Hemoglobin A1c (4.0-6.0) % Calcium (8.4-10.2) mg/dL Phosphorus (2.5-4.5) mg/dL Magnesium (1.6-2.3) mg/dL Total Protein (6.3-8.2) g/dL Albumin (3.5-5.0) g/dL Crossmatch Microbiology - Last 24 Hours (Table) 05/05/18 02:30 Urine Culture - Preliminary Urine,Clean Catch Gram Neg Bacilli 05/04/18 19:40 Blood Culture - Preliminary Blood No Growth after 24 hours Assessment and Plan Plan: Assessment 1 Acute GI bleeding, as the patient was having melanotic black tarry stool at time of admission with coagulopathy. The coagulopathy has been reversed and the patient received a total of 6 units of packed RBC and the most recent hemoglobin is at 8.6 2 acute hypotension. This is probably due to a combination of hypovolemic and septic shock. The patient was severely hypovolemic at time of admission second of GI bleed. He was resuscitated aggressively with blood products and fluids. Hemoglobin has stabilized up to 8.6. Nevertheless the patient is still requiring pressors. There is gram-negative bacillus in the urine. If fungal urine checked infection is also suspected. Blood cultures still pending. Currently on a combination of Zosyn, Diflucan and Flagyl. 3 acute kidney injury, nonoliguric 4 acute blood loss anemia secondary to above 5 acute leukocytosis, likely secondary to underlying infection 6 chronic atrial fibrillation 7 coagulopathy at the time of admission, reversed with vitamin K in the most recent INR is at 1.7 with a PT of 15.3 8 previous history of bladder/prostate cancer status post urostomy placement 9 severe metabolic acidosis recovered and the patient is currently off the bicarb drip 10 coronary artery disease with previous IN. Awaiting a follow-up echocardiogram. 11 altered mental status secondary to above, neurologic exam is nonfocal and the patient is being given a sedation holidays 12 acute ventilator-dependent respiratory failure secondary to acute hypoxemic respiratory failure. The oxidation is improved and the patient is ventilation also improved with improvement and acid base status. Plan No plans for extubation today. Monitor hemoglobin. Watch for any signs of GI bleed. Coagulation profile has been reversed. Continue same antibiotic coverage. Obtain echocardiogram. Discontinue the bicarb drip. Monitor renal function. We'll continue to follow up this patient along with aggressive the consultants. Possible exhibition today as long as the patient is hemodynamically improved and his weaned down off his pressors and his renal function is improved and hemoglobin is stable. We'll continue to follow. We' ll make further recommendations based on his progress. Critically care evaluation. 35 minutes. Time with Patient: Greater than 30
[2018-05-06 17:20] LABS: Glucose,Whole Blood 192 mg/dL (75-99)
[2018-05-06] MEDS: INSULIN ASPART 100 UNIT/ML 1 ML 10 ML VIAL SQ SCH (17:22)
--- NOTE | 2018-05-06 18:14 | PN ---
PROGRESS NOTE Patient is seen for followup for acute kidney injury. He was admitted to the hospital with severe anemia and hemoglobin of 4.1 g/dL and bleeding with elevated INR of more than 10. The patient was hypotensive, requiring Levophed. He received IV fluid resuscitation. Patient was also on a bicarb drip for metabolic acidosis. His urine culture is growing gram-negative bacilli. On examination, patient remains on the vent and is maintained on a bicarb drip. He has had good urine output of about 100 mL/hour. Blood pressure was 101/55, heart rate about 90 to 100 per minute. He is afebrile. EXAMINATION OF THE HEART: S1, S2. EXAMINATION OF LUNGS: Bilateral breath sounds are heard. ABDOMEN: Soft, non-tender. Examination of lower extremities shows no evidence of edema. [employer] exam cannot be performed. Labs show hemoglobin 8.6 g/dL, sodium 140, potassium 5.1, BUN 92, serum creatinine 2.3. ASSESSMENT: 1. Acute kidney injury, acute tubular necrosis, nonoliguric, with improving renal function. Etiology was hypotension, hypoperfusion and sepsis. 2. Hyperkalemia on initial admission, currently improved, with improving renal function and improved urine output. 3. Severe anemia with hemoglobin of 4 g/dL on initial admission, status post 6 units packed RBCs. 4. Urinary tract infection with urine culture growing gram-negative bacilli. 5. Metabolic acidosis, currently maintained on a bicarb drip. 6. History of bladder cancer, status post cystectomy and prostatectomy with a urostomy. PLAN: Discontinue bicarb drip. Switch to normal saline. Repeat labs in a.m. Continue to avoid nephrotoxic agents. Check ultrasound of the kidneys. MMODL / IJN: [id number] /
--- NOTE | 2018-05-06 18:44 | PN ---
PROGRESS NOTE DATE OF SERVICE: 05/06/2018 CHIEF COMPLAINT: Hemorrhagic shock, blood loss anemia and upper GI bleed. HISTORY OF PRESENT ILLNESS: This gentleman is stabilizing somewhat. He is not apparently bleeding any further. Hemoglobin is up to 8.6. White count is 28,400. He is still on pressors. PHYSICAL EXAM: He remains pale and paralyzed on the ventilator. Cardiac demonstrates his atrial fibrillation and the abdomen is soft without masses. Chest is clear. IMPRESSION: 1. Upper gastrointestinal hemorrhage. 2. Blood loss anemia. 3. Hypovolemic shock. 4. Status post cardiac arrest. PLAN: Continue to follow with Pulmonary and Intensive Medicine and once he stabilized and extubated, he is to have a GI endoscopies. MMODL / IJN: [id number] /
[2018-05-07 00:02] LABS: Glucose,Whole Blood 177 mg/dL (75-99)
[2018-05-07] MEDS: PIPERACILLIN-TAZOBACTAM 3.375 GM in DEXTROSE/WATER 1 50ML.BAG IVPB SCH ×3 (00:44→15:45)
[2018-05-07] MEDS: INSULIN ASPART 100 UNIT/ML 1 ML 10 ML VIAL SQ SCH ×4 (00:44→17:53)
[2018-05-07] MEDS: HYDROCORTISONE SUCCINATE 100 MG/2 ML VIAL IV SCH ×3 (00:45→15:09)
[2018-05-07 04:44] LABS: Partial Thromboplastin Time 30.9 sec (22.0-30.0); Prothrombin Time 27.2 sec (9.0-12.0)
[2018-05-07 04:51] LABS: Anisocytosis Slight; HCT 23.9 % (39.0-53.0); HGB 7.5 gm/dL (13.0-17.5); Hypochromasia Slight; MCH 26.7 pg (25.0-35.0); MCHC 31.4 g/dL (31.0-37.0); MCV 84.8 fL (80.0-100.0); Mean Platelet Volume 11.2; Platelet Count 171 k/uL (150-450); Poikilocytosis Slight; RBC 2.82 m/uL (4.30-5.90); WBC 14.4 k/uL (3.8-10.6)
[2018-05-07 05:07] LABS: Calcium 8.5 mg/dL (8.4-10.2); Magnesium 2.7 mg/dL (1.6-2.3); Phosphorus 3.4 mg/dL (2.5-4.5); Potassium 4.6 mmol/L (3.5-5.1)
[2018-05-07 05:24] LABS: Lymphocytes # (M) 1.87 k/uL (1.0-4.8); Monocytes # (M) 0.29 k/uL (0-1.0); Neutrophils # (M) 12.24 k/uL (1.3-7.7); Neutrophils % (M) 85 %; Nucleated Red Blood Cells 0 /100 WBC (0-0); Total Cells Counted 100
[2018-05-07 05:25] LABS: Polychromasia Present
[2018-05-07 05:39] LABS: ABG Base Excess 1.1 mmol/L; ABG HCO3 25 mmol/L (21-25); ABG Oxygen Saturation 98.5 % (94-97); ABG PCO2 37 mmHg (35-45); ABG PH 7.45 (7.35-7.45); ABG PO2 96 mmHg (83-108); ABG TCO2 26 mmol/L (19-24)
[2018-05-07] MEDS: PROPOFOL 1,000 MG in EMPTY BAG 1 BAG IV SCH ×6 (05:43→22:37)
--- NOTE | 2018-05-07 05:45 | US ---
EXAMINATION TYPE: US kidneys/renal and bladder DATE OF EXAM: 05/06/2018 COMPARISON: NONE CLINICAL HISTORY: RF. Leukocytosis. Exam limitations patient unable to move. EXAM MEASUREMENTS: Right Kidney: 13.1 x 6.3 x 5.1 cm Left Kidney: 13.2 x 5.8 x 4.8 cm Right Kidney: Mild to moderate hydronephrosis seen. Left Kidney: Mild hydronephrosis seen. Bladder: Not well seen patient has cathter in. Bilateral Jets seen: No . No nephrolithiasis is seen. No masses are identified. Bilateral hydronephrosis visualized. IMPRESSION: Bladder is empty. There is a bladder catheter. There is moderate right-sided hydronephrosis. There is mild left-sided hydronephrosis. No renal mass.
[2018-05-07 05:48] LABS: Glucose,Whole Blood 174 mg/dL (75-99)
[2018-05-07] MEDS: IPRATROPIUM-ALBUTEROL 3 ML NEB INHALATION PRN ×3 (07:46→19:37)
[2018-05-07] MEDS: PANTOPRAZOLE 40 MG/10 ML VIAL IV SCH ×2 (08:06→22:29)
[2018-05-07] MEDS: FLUCONAZOLE IN NACL,ISO-OSM 100 MG in SALINE 1 50ML.BAG IVPB SCH (08:08)
--- NOTE | 2018-05-07 08:21 | XR ---
EXAMINATION TYPE: XR chest 1V DATE OF EXAM: 05/07/2018 COMPARISON: 05/06/2018 HISTORY: 77-year-old male vent management TECHNIQUE: Single frontal view of the chest is obtained. FINDINGS: ET tube satisfactory. The NG tube remains high in position. The sidehole is at the level of the GE ju nction. It was further advanced into the stomach by approximately 6 cm. Right IJ CVC tip at the mid t o lower SVC level. Heart remains mildly enlarged. Relative upper lung lucencies may reflect underlying emphysema. Pulmon kristel vasculature appears improved from prior exam. Patchy right greater than left bibasilar opacities with small left pleural effusion persist. Changes slightly worsened on the right. IMPRESSION: 1. Improving pulmonary vascular congestion. 2. However, there is persistent small left pleural effusion with adjacent left basilar and retrocardi ac atelectasis and/or consolidation. 3. Patchy atelectasis or consolidation at the right base is slightly increased in the interval.
[2018-05-07] MEDS: METOPROLOL TARTRATE 25 MG TAB PO SCH ×3 (08:24→21:13)
[2018-05-07] MEDS: CHLORHEXIDINE GLUCONATE 15 ML CUP MUCOUS MEM SCH ×2 (08:24→21:12)
[2018-05-07] MEDS: metroNIDAZOLE 500 MG TAB PO SCH (08:25)
[2018-05-07 08:41] LABS: Albumin 2.4 g/dL (3.5-5.0); Calcium 8.4 mg/dL (8.4-10.2); Potassium 4.7 mmol/L (3.5-5.1); Total Bilirubin 0.3 mg/dL (0.2-1.3); Total Protein 4.9 g/dL (6.3-8.2)
[2018-05-07] MEDS ORDERED: PHYTONADIONE 10 MG in SODIUM CHLORIDE 0.9% 50 ML IVPB STA (08:58)
--- NOTE | 2018-05-07 09:06 | P.PN ---
Subjective Progress Note Date: 05/07/18 Mr. Raygoza is a 77-year-old white male patient of Dr. De Leon, who was brought in to the emergency department on the weight of 2018 at 1900 by the ambulance for evaluation of weakness, weeklong history of diarrhea, black tarry stools, falls, hypotension. EMS noted his blood pressure was 82/50, patient was feeling very faint, feeling like he was going to pass out. Denied any chest pain, complained of mild abdominal discomfort. Patient has past medical history of chronic atrial fibrillation, and patient is on Coumadin for anticoagulation. In the emergency department initial blood work revealed a CBC of 22.2, hemoglobin of 4.1, white count was 112, INR was greater than 10, sodium is 137, potassium was 5.0, B1 is 131, creatinine is 2.5. Lactic acid was elevated at 4.1, troponin was negative. Occult stool was positive. EKG showed A. fib with rapid ventricular response with a rate of 127 BPM. Patient has seemed a total of 4 units of packed red blood cells, 2 units of fresh frozen plasma, and follow-up labs showed hemoglobin of 6.5, WBC of 32, INR is down to 1.4. BUN of 126, creatinine is 2.40. Lactic acidosis has improved, and plasma lactic acid is currently down to 2.0. 10 mg of vitamin K was also given. Patient was started on IV Protonix, and GI service has been consulted. While in the emergency department he was noted to have progressively decreasing level of consciousness, and there was a concern about cerebral bleed. Patient was intubated and placed on mechanical ventilator. We're seeing the patient in consultation the intensive care unit, he remains sedated, on mechanical ventilator, on assist control mode of ventilation, with a rate of 22, tidal vital 400, FiO2 40%, PEEP of 5. IV D5W with 3 A of bicarb is infusing at a rate of 75 cc/hr, Diprivan and is at 40 mcg/kg/min, and levofed is at 22 mcg/ min. On empiric antibiotics in the form of Zosyn for a concern of aspiration pneumonia, chest x-ray showed mild pulmonary vascular congestion, enlarged heart. Postintubation chest x-ray showed ET tube approximately 6 cm from the luisa, NG tube in the appropriate position, no pneumothorax, some pulmonary interstitial edema. Brain CT showed old right internal capsule lacunar infarct , cerebral atrophy, but no acute intracranial abnormality. His mornings chest x -ray is overall stable findings, with mild underlying emphysematous change and cardiomegaly without acute infiltrate. Patient remains afebrile, remains in atrial fibrillation and currently remains tachycardic with a rate from 115 to 124 BPM. Other medical history includes bladder cancer, and prostate cancer, status post urostomy placement and chemotherapy in 2006, current smoker, previous history of myocardial infarction. Patient's urostomy bag is connected to a Rocha drainage bag, and he is having urine output in the order of 50-125 ML per hour. On 05/06/2018 the patient is being seen for a follow-up. Is a 77-year-old male patient was hospitalized for bloody stool, black tarry stool and generalized weakness and falls and hypotension. The patient came into the emergency department quite hypotensive and hemodynamically unstable. He is also known to have chronic atrial fibrillation. He was Coumadin toxic at a time of admission. Note that the patient was having also some altered mentation. He was ultimately intubated and placed on a mechanical ventilator and he was brought up to the ICU. This morning is an assist-control mode of ventilation. He is on assist control of 22, tidal volume of 400 with an FiO2 of 40% and PEEP of 5. The blood gases from this morning shows a pH of 7.34 with a pCO2 of 48 and pO2 of 114 and this was done and FiO2 of 40%. The chest x-ray from today shows adequate positioning of the ET tube. The patient also has a subclavian triple-lumen catheter on the right. There is also a left-sided pleural effusion and underlying left lower lobe pneumonia cannot be completely excluded. He does have some baseline cardiomegaly. Note that since yesterday, the patient was fluid resuscitated and he was in the bicarb drip. Was acidotic and the bicarb level subsequently improved and is up to 26 and this morning the bicarb level was 26 and the bicarb infusion was discontinued. Kidney function is also impaired. The patient is currently in acute kidney injury. Creatinine has dropped down to 2.3. As for the white cell count, the patient presented with a white cell count of 32.8 and current white cell count is 28.4. The blood culture is negative. Urine culture showing gram-negative bacillus. The initial urinalysis also showed some budding yeast. Based on all this, the patient is covered with antibiotics. The current antibiotic coverage included Zosyn and I added Diflucan addition. He is currently on normal saline at the rate of 75 mL an hour. Echocardiogram is pending for now. Noted the patient has history of bladder cancer and prostate cancer and he is post urostomy there was placed in 2005. He is known to have coronary artery disease. He has had previous DC. He is a smoker. On 05/07/2019 I'm seeing this patient for a follow-up. The patient remains intubated on a mechanical ventilator. Vent settings are essentially the same on today's evaluation with a tidal volume of 400 with a rate of 22 and FiO2 of 40% and a PEEP of 5. The patient has a pH of 7.45 with a pCO2 of 37 and pO2 of 96. He remains sedated on Diprivan is calm and comfortable. He did have another episode of melanotic stool this morning. INR came up to 3 after being given 2 units of fresh frozen plasma and 10 mg of vitamin K. The plan was to proceed with an EGD today. I talked to gastroenterology. We are going to proceed with the same plan and the patient will be given additional 2 units of fresh frozen plasma and another 5 of vitamin K. Note that the hemoglobin had dropped from 8.6 down to 7.5. He is producing adequate amount of urine output. He is on pressors and the present dose has been weaned down to 2 mics of norepinephrine infusion. Is producing adequate amount of urine output. The neck fluid balance for yesterday was +1.9 L. He was found to have gram- negative bacillus in his urine. He is on a combination of antibiotics including Diflucan, IV Zosyn. The Flagyl can be discontinued at this point in time. The patient remains nothing by mouth. NG tube is in place. No significant bloody output from his NG tube. He is afebrile. No other significant events overnight. Objective - Vital Signs Vital signs: Vital Signs Temp 97.6 F 05/07/18 08:00 Pulse 108 H 05/07/18 08:10 Resp 25 H 05/07/18 08:00 BP 105/59 05/07/18 08:00 Pulse Ox 98 05/07/18 08:00 Intake & Output 05/06/18 05/07/18 05/07/18 18:59 06:59 18:59 Intake Total 7650.010 8340.570 170 Output Total 1505 1130 100 Balance 47.781 305.570 70 Weight 101.5 kg Intake: IV 1108 1008.5 170 D5 Hco3 225 Fluconazole in NaCl,Iso- 50 Osm 100 mg In Saline 1 50ml.bag @ 50 mls/hr IVPB DAILY [facility] Rx#:[id number] Piperacillin-Tazobactam 3 100 62.5 50 .375 gm In Dextrose/Water 1 50ml.bag @ 12.5 mls/hr IVPB Q8HR [facility] Rx#: [id number] Pressure Bag 3 36 Sodium Chloride 0.9% 1, 630 910 70 000 ml @ 70 mls/hr IV . [id number] [facility] Rx#:[id number] Sodium Chloride 0.9% 1, 150 000 ml @ 75 mls/hr IV . [id number] [facility] Rx#:[id number] Intake, IV Titration 444.781 277.070 Amount Norepinephrine 16 mg In 99.874 30.957 Dextrose 5% in Water 250 ml @ Titrate IV .Q0M [facility] Rx#:[id number] Propofol 1,000 mg In 344.907 246.113 Empty Bag 1 bag @ Titrate IV .Q0M [facility] Rx#: [id number] Other 150 Output: Urine 1505 1130 100 Other: Voiding Method Ileal Conduit (Right) Ileal Conduit (Right) ABP, PAP, CO, CI - Last Documented Arterial Blood Pressure 105/58 - Exam GENERAL EXAM: 77-year-old elderly white male, sedated and intubated, on mechanical ventilator in no apparent distress. HEAD: Normocephalic/atraumatic. EYES: Normal reaction of pupils, equal size. Conjunctiva pink, sclera white. NOSE: Clear with pink turbinates. THROAT: No erythema or exudates. NECK: No masses, no JVD, no thyroid enlargement, no adenopathy. The patient has a right IJ triple lumen catheter in place. CHEST: No chest wall deformity. Symmetrical expansion. LUNGS: Equal air entry with coarse breath sounds, scattered rhonchi CVS: Irregular rate and rhythm, normal S1 and S2, no gallops, no murmurs, no rubs ABDOMEN: Soft, nontender. No hepatosplenomegaly, normal bowel sounds, no guarding or rigidity. There is a urostomy present on right abdomen, and active to a Rocha drainage bag with clear yellow urine EXTREMITIES: No clubbing, no edema, no cyanosis, 2+ pulses and upper and lower extremities. MUSCULOSKELETAL: Muscle strength and tone normal. SPINE: No scoliosis or deformity SKIN: No rashes CENTRAL NERVOUS SYSTEM: Sedated, on mechanical ventilator No focal deficits, tone is normal in all 4 extremities. PSYCHIATRIC: To assess, sedated - Labs CBC & Chem 7: 05/07/18 04:15 05/07/18 08:10 Labs: Abnormal Lab Results - Last 24 Hours (Table) 05/06/18 05/07/18 05/07/18 Range/Units 17:17 00:01 04:15 WBC (3.8-10.6) k/uL RBC (4.30-5.90) m/uL Hgb (13.0-17.5) gm/dL Hct (39.0-53.0) % RDW (11.5-15.5) % Neutrophils # (Manual) (1.3-7.7) k/uL PT (9.0-12.0) sec INR (<1.2) APTT (22.0-30.0) sec ABG Total CO2 (19-24) mmol/L ABG O2 Saturation (94-97) % Chloride 113 H (98-107) mmol/L BUN 75 H (9-20) mg/dL Creatinine 1.80 H (0.66-1.25) mg/dL Glucose 147 H (74-99) mg/dL POC Glucose (mg/dL) 192 H 177 H (75-99) mg/dL Magnesium 2.7 H (1.6-2.3) mg/dL Total Protein (6.3-8.2) g/dL Albumin (3.5-5.0) g/dL 05/07/18 05/07/18 05/07/18 Range/Units 04:15 04:15 05:37 WBC 14.4 H (3.8-10.6) k/uL RBC 2.82 L (4.30-5.90) m/uL Hgb 7.5 L (13.0-17.5) gm/dL Hct 23.9 L (39.0-53.0) % RDW 19.0 H (11.5-15.5) % Neutrophils # (Manual) 12.24 H (1.3-7.7) k/uL PT 27.2 H (9.0-12.0) sec INR 3.0 H (<1.2) APTT 30.9 H (22.0-30.0) sec ABG Total CO2 26 H (19-24) mmol/L ABG O2 Saturation 98.5 H (94-97) % Chloride (98-107) mmol/L BUN (9-20) mg/dL Creatinine (0.66-1.25) mg/dL Glucose (74-99) mg/dL POC Glucose (mg/dL) (75-99) mg/dL Magnesium (1.6-2.3) mg/dL Total Protein (6.3-8.2) g/dL Albumin (3.5-5.0) g/dL 05/07/18 05/07/18 Range/Units 05:45 08:10 WBC (3.8-10.6) k/uL RBC (4.30-5.90) m/uL Hgb (13.0-17.5) gm/dL Hct (39.0-53.0) % RDW (11.5-15.5) % Neutrophils # (Manual) (1.3-7.7) k/uL PT (9.0-12.0) sec INR (<1.2) APTT (22.0-30.0) sec ABG Total CO2 (19-24) mmol/L ABG O2 Saturation (94-97) % Chloride 115 H (98-107) mmol/L BUN 69 H (9-20) mg/dL Creatinine 1.86 H (0.66-1.25) mg/dL Glucose 147 H (74-99) mg/dL POC Glucose (mg/dL) 174 H (75-99) mg/dL Magnesium (1.6-2.3) mg/dL Total Protein 4.9 L (6.3-8.2) g/dL Albumin 2.4 L (3.5-5.0) g/dL Microbiology - Last 24 Hours (Table) 05/04/18 19:40 Blood Culture - Preliminary Blood No Growth after 48 hours 05/05/18 02:30 Urine Culture - Preliminary Urine,Clean Catch Gram Neg Bacilli Assessment and Plan Plan: Assessment 1 Acute GI bleeding, as the patient was having melanotic black tarry stool at time of admission with coagulopathy. The coagulopathy has been reversed and the patient received a total of 6 units of packed RBC and 2 units of fresh frozen plasma and vitamin K. On today's evaluation, there is a drop in hemoglobin down to 7.5. The patient had another melanotic stool. INR is up to 3. The plan is to give 2 additional units of fresh frozen plasma along with vitamin K and dry to this patient being extubated. 2 acute hypotension. This is probably due to a combination of hypovolemic and septic shock. Blood pressure is improved significantly with fluid resuscitation and antibiotics. The patient is currently on 2 mics of norepinephrine infusion which can be easily weaned off. 3 acute kidney injury, nonoliguric, improving and the creatinine is on the decline 4 acute blood loss anemia secondary to above, hemoglobin is dropped again, suspect another episode of GI bleed. EGD is pending 5 acute leukocytosis, likely secondary to underlying infection, improving and the white cell count is down to 14 6 chronic atrial fibrillation 7 coagulopathy at the time of admission, reversed with vitamin K and fresh frozen plasma. INR is up to 3 and further treatment is to follow 8 previous history of bladder/prostate cancer status post urostomy placement 9 severe metabolic acidosis recovered and the patient is currently off the bicarb drip 10 coronary artery disease with previous DC. Awaiting a follow-up echocardiogram. the preliminary findings showed some impairment of LV function with an ejection fraction of 30-35%. Awaiting final results 11 altered mental status secondary to above, neurologic exam is nonfocal and the patient is being given a sedation holidays 12 acute ventilator-dependent respiratory failure secondary to acute hypoxemic respiratory failure. The oxygenation improved and the patient is ventilation also improved with improvement and acid base status. Plan The plan is to give the patient total of 2 units of fraction wasn't plasma. We' ll given 5 of vitamin K. We'll repeat INR. We will proceed with EGD following that while the patient being intubated on a mechanical ventilator. Based on the results of the EGD, we'll make it final decision whether the patient will extubated today or not. I think overall condition is improved. His hemodynamics is improved. He is covered with fluids and antibiotics. I'm going to continue the Zosyn and the Diflucan and discontinue the Flagyl for now. Monitor the hemoglobin. Continue with vent support. Continue the sedation. As mentioned, the plan is EGD today with possible extubation later stage depending on the outcome. Continued care evaluation, 32 minutes. Time with Patient: Greater than 30
--- NOTE | 2018-05-07 10:53 | ECHOF ---
Referral Reason:CHF MEASUREMENTS -------- HEIGHT: 182.9 cm WEIGHT: 101.2 kg BP: RVIDd: 3.4 cm (< 3.3) IVSd: 1.1 cm (0.6 - 1.1) LVIDd: 5.3 cm (3.9 - 5.3) LVPWd: 1.4 cm (0.6 - 1.1) IVSs: 1.3 cm LVIDs: 5.0 cm LVPWs: 1.1 cm LA Diam: 4.3 cm (2.7 - 3.8) LAESV Index (A-L): 85.25 ml/m Ao Diam: 3.7 cm (2.0 - 3.7) AV Cusp: 0.8 cm (1.5 - 2.6) LA Diam: 4.1 cm (2.7 - 3.8) MV EXCURSION: 21.757 mm (> 18.000) MV EF SLOPE: 87 mm/s (70 - 150) EPSS: 1.1 cm MV E Denzel: 1.24 m/s MV A Denzel: 0.00 m/s MV E/A Ratio: 326.64 AV maxP.17 mmHg AV meanP.70 mmHg AR PHT: 453 ms RAP: 15.00 mmHg RVSP: 45.87 mmHg FINDINGS -------- Undetermined rhythm. This was a technically good study. The left ventricular size is normal. Left ventricular wall thickness is normal. Overall left vent ricular systolic function is severely impaired with, an EF between 25 - 30 %. Inferior Hypokinesis Septal Hypokinesis The right ventricle is normal in size. The left atrium is mildly dilated. LA is severely dilated >40 ml/m2 The right atrial size is normal. There is mild aortic regurgitation. Peak/mean gradient across the Aortic Valve is 17.17mmHg / 8.70m mHg. Aov is stenotic with decrease opening. Mild mitral annular calcification present. Moderate mitral regurgitation is present. Moderate tricuspid regurgitation present. There is moderate pulmonary hypertension. The right opal tricular systolic pressure, as measured by Doppler, is 45.87mmHg. Trace/mild (physiologic) pulmonic regurgitation. The aortic root size is normal. There is no pericardial effusion. CONCLUSIONS -------- 1. The left ventricular size is normal. 2. Left ventricular wall thickness is normal. 3. Overall left ventricular systolic function is severely impaired with, an EF between 25 - 30 %. 4. Inferior Hypokinesis 5. Septal Hypokinesis 6. The right ventricle is normal in size. 7. The left atrium is mildly dilated. 8. LA is severely dilated >40 ml/m2 9. The right atrial size is normal. 10. There is mild aortic regurgitation. 11. Peak/mean gradient across the Aortic Valve is 17.17mmHg / 8.70mmHg. 12. Aov is stenotic with decrease opening. 13. Mild mitral annular calcification present. 14. Moderate mitral regurgitation is present. 15. Moderate tricuspid regurgitation present. 16. There is moderate pulmonary hypertension. 17. The right ventricular systolic pressure, as measured by Doppler, is 45.87mmHg. 18. Trace/mild (physiologic) pulmonic regurgitation. 19. The aortic root size is normal. 20. There is no pericardial effusion. WELDING PANTOGRAPH OPERATOR: Opal Colindres RDCS
--- NOTE | 2018-05-07 11:21 | P.PN ---
Subjective Progress Note Date: 05/07/18 Principal diagnosis: GI bleed Small black-colored bowel movement this morning. 6 units of blood 2 FFP. Quad strength Levophed decreasing presently at 2 g. OGT nonbloody drainage. Hemoglobin 7.5. INR increased to 3.0. LFTs stable. Gram-negative urine culture. Objective - Vital Signs Vital signs: Vital Signs Temp 97.5 F L 05/07/18 11:02 Pulse 114 H 05/07/18 11:08 Resp 26 H 05/07/18 11:02 BP 109/59 05/07/18 11:02 Pulse Ox 98 05/07/18 11:02 Intake & Output 05/06/18 05/07/18 05/07/18 18:59 06:59 18:59 Intake Total 2954.494 1745.570 853 Output Total 1505 1130 250 Balance 47.781 305.570 603 Weight 101.5 kg 101.5 kg Intake: IV 1108 1008.5 360 D5 Hco3 225 Fluconazole in NaCl,Iso- 50 Osm 100 mg In Saline 1 50ml.bag @ 50 mls/hr IVPB DAILY [facility] Rx#:[id number] Phytonadione 10 mg In 50 Sodium Chloride 0.9% 50 ml @ 100 mls/hr IVPB ONCE [facility] Rx#:[id number] Piperacillin-Tazobactam 3 100 62.5 50 .375 gm In Dextrose/Water 1 50ml.bag @ 12.5 mls/hr IVPB Q8HR [facility] Rx#: [id number] Pressure Bag 3 36 Sodium Chloride 0.9% 1, 630 910 210 000 ml @ 70 mls/hr IV . [id number] [facility] Rx#:[id number] Sodium Chloride 0.9% 1, 150 000 ml @ 75 mls/hr IV . [id number] [facility] Rx#:[id number] Intake, IV Titration 444.781 277.070 100 Amount Norepinephrine 16 mg In 99.874 30.957 Dextrose 5% in Water 250 ml @ Titrate IV .Q0M [facility] Rx#:[id number] Propofol 1,000 mg In 344.907 246.113 100 Empty Bag 1 bag @ Titrate IV .Q0M [facility] Rx#: [id number] Blood Product 303 Ffp 24 Cpd Unit 0 [id number] Ffp 24 Cpd Unit 303 [id number] Other 150 90 Output: Urine 1505 1130 250 Other: Voiding Method Ileal Conduit (Right) Ileal Conduit (Right) Ileal Conduit ( Right) ABP, PAP, CO, CI - Last Documented Arterial Blood Pressure 108/56 - Exam General appearance: The patient is intubated sedated HET: Head is normocephalic and atraumatic. Pupils are equal and reactive. Oropharynx is clear without lesions. Oral gastric tube nonbloody bilious drainage. Neck: Supple without lymphadenopathy. Trachea midline. Endotracheal tube intact. Heart: S1 S2. Lungs: No crackles or wheezes are heard. Abdomen: Soft, nontender, nondistended with bowel sounds. No peritoneal signs. No palpable organomegaly or masses. Urostomy clear yellow urine. Extremities: Normal skin color and turgor. No cyanosis, rash, ulceration, clubbing, or edema. Radial and pedal pulses are 2/4 bilaterally. Neurological: Unable to assess sedation - Labs CBC & Chem 7: 05/07/18 04:15 05/07/18 08:10 Labs: Abnormal Lab Results - Last 24 Hours (Table) 05/06/18 05/07/18 05/07/18 Range/Units 17:17 00:01 04:15 WBC (3.8-10.6) k/uL RBC (4.30-5.90) m/uL Hgb (13.0-17.5) gm/dL Hct (39.0-53.0) % RDW (11.5-15.5) % Neutrophils # (Manual) (1.3-7.7) k/uL PT (9.0-12.0) sec INR (<1.2) APTT (22.0-30.0) sec ABG Total CO2 (19-24) mmol/L ABG O2 Saturation (94-97) % Chloride 113 H (98-107) mmol/L BUN 75 H (9-20) mg/dL Creatinine 1.80 H (0.66-1.25) mg/dL Glucose 147 H (74-99) mg/dL POC Glucose (mg/dL) 192 H 177 H (75-99) mg/dL Magnesium 2.7 H (1.6-2.3) mg/dL Total Protein (6.3-8.2) g/dL Albumin (3.5-5.0) g/dL 05/07/18 05/07/18 05/07/18 Range/Units 04:15 04:15 05:37 WBC 14.4 H (3.8-10.6) k/uL RBC 2.82 L (4.30-5.90) m/uL Hgb 7.5 L (13.0-17.5) gm/dL Hct 23.9 L (39.0-53.0) % RDW 19.0 H (11.5-15.5) % Neutrophils # (Manual) 12.24 H (1.3-7.7) k/uL PT 27.2 H (9.0-12.0) sec INR 3.0 H (<1.2) APTT 30.9 H (22.0-30.0) sec ABG Total CO2 26 H (19-24) mmol/L ABG O2 Saturation 98.5 H (94-97) % Chloride (98-107) mmol/L BUN (9-20) mg/dL Creatinine (0.66-1.25) mg/dL Glucose (74-99) mg/dL POC Glucose (mg/dL) (75-99) mg/dL Magnesium (1.6-2.3) mg/dL Total Protein (6.3-8.2) g/dL Albumin (3.5-5.0) g/dL 05/07/18 05/07/18 Range/Units 05:45 08:10 WBC (3.8-10.6) k/uL RBC (4.30-5.90) m/uL Hgb (13.0-17.5) gm/dL Hct (39.0-53.0) % RDW (11.5-15.5) % Neutrophils # (Manual) (1.3-7.7) k/uL PT (9.0-12.0) sec INR (<1.2) APTT (22.0-30.0) sec ABG Total CO2 (19-24) mmol/L ABG O2 Saturation (94-97) % Chloride 115 H (98-107) mmol/L BUN 69 H (9-20) mg/dL Creatinine 1.86 H (0.66-1.25) mg/dL Glucose 147 H (74-99) mg/dL POC Glucose (mg/dL) 174 H (75-99) mg/dL Magnesium (1.6-2.3) mg/dL Total Protein 4.9 L (6.3-8.2) g/dL Albumin 2.4 L (3.5-5.0) g/dL Microbiology - Last 24 Hours (Table) 05/04/18 19:40 Blood Culture - Preliminary Blood No Growth after 48 hours 05/05/18 02:30 Urine Culture - Preliminary Urine,Clean Catch Gram Neg Bacilli Assessment and Plan (1) GI bleed Narrative/Plan: Reports of black colored bowel movements possible peptic ulcer disease possible bleeding angiectasia however small bowel possible colonic source cannot be entirely excluded. Current Visit: Yes Status: Acute Code(s): K92.2 - GASTROINTESTINAL HEMORRHAGE, UNSPECIFIED SNOMED Code(s): 87157221 (2) Warfarin-induced coagulopathy Narrative/Plan: Supratherapeutic INR Current Visit: Yes Status: Acute Code(s): D68.32 - HEMORRHAGIC DISORD D/T EXTRINSIC CIRCULATING ANTICOAGULANTS; T45.515A - ADVERSE EFFECT OF ANTICOAGULANTS, INITIAL ENCOUNTER SNOMED Code(s): 52690258 (3) Acute blood loss anemia Current Visit: Yes Status: Acute Code(s): D62 - ACUTE POSTHEMORRHAGIC ANEMIA SNOMED Code(s): 350462778 (4) History of atrial fibrillation Current Visit: Yes Status: Acute Code(s): Z86.79 - PERSONAL HISTORY OF OTHER DISEASES OF THE CIRCULATORY SYSTEM SNOMED Code(s): 284455541 (5) History of prostate cancer Current Visit: Yes Status: Acute Code(s): Z85.46 - PERSONAL HISTORY OF MALIGNANT NEOPLASM OF PROSTATE SNOMED Code(s): 099484184 (6) Atrial fibrillation with RVR Current Visit: Yes Status: Acute Code(s): I48.91 - UNSPECIFIED ATRIAL FIBRILLATION SNOMED Code(s): 805529943782958 Plan: 1. INR has increased case was discussed with Dr. Bhatt we'll give vitamin K and FFP proceed with EGD evaluation this afternoon. Continue CBC monitoring. GI prophylaxis. We'll continue to follow. The payment manager has discussed the risks, benefits and alternative therapies for the above-mentioned procedure and for both sedation/analgesia as well as necessary blood product administration, if indicated, as they pertain to this patient. The patient advocate has indicated understanding and acceptance of the risks and procedures discussed. Assessment and plan a care discussed with Dr. Su
--- NOTE | 2018-05-07 11:48 | PN ---
PROGRESS NOTE DATE OF SERVICE: 05/07/2018. HISTORY: The patient is followup for acute kidney injury. The patient remains on the vent. Levophed is down to about 2 mcg. The patient continues to have good urine output. It is so active bleeding noted. Hemoglobin is now staying about 7.5 g/dL. PHYSICAL EXAMINATION: On examination, patient is sedated on the vent. Blood pressure this morning was 107/62, heart rate of 108 per minute. Patient is afebrile. Examination of the heart S1, S2. Examination of lungs, bilateral breath sounds are heard. Abdomen is soft. Examination lower extremities shows no significant edema. CREATIVE WRITER exam cannot be performed. LABS: Show hemoglobin 7.5, sodium 144, potassium 4.7, BUN 69, serum creatinine 1.86, albumin 2.4. ASSESSMENT: 1. Acute kidney injury secondary to hypotension, hypoperfusion, nonoliguric, with serum creatinine about the same for the last two days, however, there is significant improvement since admission with creatinine initially at 2.5 mg/dL. There are no nephrotoxic agents on board. The pressors are significantly decreased as compared to on admission. The patient is maintained on IV fluids, which I will continue for now. 2. Metabolic acidosis secondary to renal failure. 3. Lactic acidosis currently improved status post bicarb drip. 4. Ventilator-dependent respiratory failure. 5. Severe anemia on admission with hemoglobin of 4 g/dL initially. 6. Hyperkalemia on initial admission, currently improved. 7. Chronic atrial fibrillation. 8. Urinary tract infection with urine culture growing Gram-negative bacilli. Maintained on empiric antibiotics. PLAN: Continue IV fluids. Continue to wean off pressors. Repeat labs in a.m.. MMODL / IJN: [id number] /
[2018-05-07 12:23] LABS: Glucose,Whole Blood 184 mg/dL (75-99)
[2018-05-07 12:48] LABS: INR 1.8 (<1.2); Prothrombin Time 16.1 sec (9.0-12.0)
[2018-05-07] MEDS: SODIUM CHLORIDE 0.9% 1,000 ML IV SCH (12:59)
[2018-05-07] MEDS: PYRIDOXINE 50 MG TAB PO SCH (15:01)
[2018-05-07] MEDS: ISOSORBIDE MONONITRATE ER 30 MG TAB.ER.24H PO SCH (15:02)
[2018-05-07] MEDS ORDERED: IV FLUID CONTINUATION 1,000 ML IV ONE (17:41)
[2018-05-07 17:52] LABS: ABG Base Excess 1.8 mmol/L; ABG HCO3 26 mmol/L (21-25); ABG Oxygen Saturation 95.1 % (94-97); ABG PCO2 37 mmHg (35-45); ABG PH 7.45 (7.35-7.45); ABG PO2 69 mmHg (83-108); ABG TCO2 27 mmol/L (19-24)
[2018-05-07 17:52] LABS: Glucose,Whole Blood 164 mg/dL (75-99)
--- NOTE | 2018-05-07 18:47 | P.PCN ---
Date of Procedure: 05/07/18 Procedure(s) Performed: Procedure: Esophagogastroduodenoscopy. Preoperative diagnosis: GI bleeding and anemia. Postoperative diagnosis: 1. Duodenitis with duodenal bulb ulcers with no active bleeding at the time of this exam. 2. Ulcerations in the esophagus, likely NG tube trauma, with no evidence of active bleeding. 3. No evidence of bleeding at the time of this exam and all secretions encountered were bilious in color. Preparation and sedation: The patient was already intubated, sedated and on mechanical ventilation and the procedure was performed at the bedside in the intensive care unit. Brief clinical history: The patient is a 77-year-old male with history of atrial fibrillation on Coumadin therapy, presented with weakness, frequent falls and and did tarry bowel movements and he was found to have profound anemia and coagulopathy. The patient developed hypoxemic respiratory failure and required intubation, sedation and mechanical ventilation. The patient required blood transfusions and transfusions with fresh frozen plasma. This evaluation today was requested after correction of his coagulopathy because he continued to pass dark stools. His hemoglobin is currently 7.5. The details are summarized in the history and physical and dictated consultations and progress notes. Procedure: With the patient in the supine position while intubated and sedated and on mechanical ventilation, I passed a Olympus-GIF 160 video upper endoscope through the cricopharyngeus down the esophagus. The endoscope was passed alongside the NG tube which she had a was placed with its tip in the middle third of the esophagus. The esophagus did not show any obvious mucosal tears or esophageal varices or bleeding. There were couple ulcerations that, to me, looked like NG tube trauma. They were between 1 and 2 cm and covered with white exudate with no active bleeding. The endoscope was then passed into the stomach which was insufflated with air and inspected in detail including the retroflex view in the cardia. No obvious abnormalities were seen in the stomach. Finally, the endoscope was passed through the pylorus into the duodenum. Pyloric channel did not show any ulcers. Duodenal bulb showed edema , erythema and some friability and 2 small ulcerations covered with white exudate but there were no dark protuberances, clots or bleeding. Post bulbar area and descending duodenum appeared within normal. No biopsies were obtained then the endoscope was withdrawn. The patient tolerated the procedure well. Plan: I discussed the findings with his daughter. Will continue PPI and supportive care and adjust the the position of the NG tube. Further plans will be made based on his course. We will follow with you with interest.
--- NOTE | 2018-05-07 18:56 | PN ---
PROGRESS NOTE CHIEF COMPLAINT: Hypovolemic shock secondary to upper GI bleed with blood-loss anemia. HISTORY OF PRESENT ILLNESS: This gentleman continues on the ventilator. Kidney function is significantly interfered with. He is being seen by Nephrology. He is probably going to be scoped later today. There does not appear to be any further bleeding. His hemoglobin seems to have stabilized. PHYSICAL EXAMINATION: He is on a ventilator. Breath sounds are heard bilaterally. Cardiac exam is normal. The abdomen is soft and there are no masses. He has an ileal loop conduit for ureterostomy. IMPRESSION: 1. Hypovolemic shock due to upper gastrointestinal hemorrhage with blood-loss anemia. 2. Renal failure. 3. History of chronic atrial fibrillation. PLAN: Continue to follow with Intensive Medicine, GI and Nephrology. MMODL / IJN: [id number] /
[2018-05-08 00:09] LABS: Glucose,Whole Blood 149 mg/dL (75-99)
[2018-05-08] MEDS: PIPERACILLIN-TAZOBACTAM 3.375 GM in DEXTROSE/WATER 1 50ML.BAG IVPB SCH ×4 (00:14→23:47)
[2018-05-08] MEDS: HYDROCORTISONE SUCCINATE 100 MG/2 ML VIAL IV SCH ×4 (00:14→23:46)
[2018-05-08] MEDS: INSULIN ASPART 100 UNIT/ML 1 ML 10 ML VIAL SQ SCH ×5 (00:14→23:46)
[2018-05-08] MEDS: PROPOFOL 1,000 MG in EMPTY BAG 1 BAG IV SCH ×4 (02:23→12:41)
[2018-05-08 04:27] LABS: Anisocytosis Slight; Basophils % (A) 0 %; Eosinophils % (A) 0 %; HCT 24.7 % (39.0-53.0); HGB 7.7 gm/dL (13.0-17.5); Hypochromasia Moderate; Lymphocytes # (A) 0.7 k/uL (1.0-4.8); Lymphocytes % (A) 6 %; MCV 87.1 fL (80.0-100.0); Mean Platelet Volume 12.4; Monocytes # (A) 0.6 k/uL (0-1.0); Monocytes % (A) 5 %; Neutrophils # (A) 9.4 k/uL (1.3-7.7); Neutrophils % (A) 86 %; Platelet Count 203 k/uL (150-450); Poikilocytosis Slight; RBC 2.84 m/uL (4.30-5.90); RDW 19.4 % (11.5-15.5)
[2018-05-08 04:41] LABS: Magnesium 2.8 mg/dL (1.6-2.3); Phosphorus 4.3 mg/dL (2.5-4.5); Potassium 4.7 mmol/L (3.5-5.1)
[2018-05-08 04:42] LABS: INR 1.2 (<1.2); Prothrombin Time 11.6 sec (9.0-12.0)
[2018-05-08 04:47] LABS: ABG Base Excess 0.4 mmol/L; ABG HCO3 25 mmol/L (21-25); ABG Oxygen Saturation 99.7 % (94-97); ABG PCO2 35 mmHg (35-45); ABG PH 7.45 (7.35-7.45); ABG PO2 150 mmHg (83-108); ABG TCO2 26 mmol/L (19-24)
[2018-05-08 04:50] LABS: Partial Thromboplastin Time 21.8 sec (22.0-30.0)
[2018-05-08 06:06] LABS: Glucose,Whole Blood 160 mg/dL (75-99)
--- NOTE | 2018-05-08 06:50 | XR ---
EXAMINATION TYPE: XR chest 1V DATE OF EXAM: 05/08/2018 HISTORY: vent management. REFERENCE: Previous study dated 05/07/2018. FINDINGS: The patient's NG tube, ET tube and right internal jugular catheter remain in place, unchang ed in appearance. Heart size is upper limits of normal. There is improved aeration of both lung bases. Some persistent atelectasis is present. There is a small left effusion. IMPRESSION: IMPROVED AERATION, BOTH LUNG BASES.
[2018-05-08] MEDS: IPRATROPIUM-ALBUTEROL 3 ML NEB INHALATION PRN ×2 (08:00→12:03)
[2018-05-08] MEDS: METOPROLOL TARTRATE 25 MG TAB PO SCH ×3 (08:46→22:29)
[2018-05-08] MEDS: PANTOPRAZOLE 40 MG/10 ML VIAL IV SCH ×2 (08:47→20:17)
[2018-05-08] MEDS: FLUCONAZOLE IN NACL,ISO-OSM 100 MG in SALINE 1 50ML.BAG IVPB SCH (08:47)
[2018-05-08] MEDS: CHLORHEXIDINE GLUCONATE 15 ML CUP MUCOUS MEM SCH ×2 (08:47→20:17)
--- NOTE | 2018-05-08 09:36 | P.PN ---
Subjective Patient is seen in follow-up for acute kidney injury. Creatinine in 2016 was 0.7. This admission was 2.5 and is 1.93 today. Patient presented with hemoglobin of 4.1 and has received multiple blood transfusions. He underwent EGD on May 07 which revealed duodenitis with duodenal bulb ulcers with no active bleeding. He is off all vasopressors. He is nonoliguric. Also being treated for E. coli UTI. Vital signs are stable. General: The patient appeared well nourished and normally developed. HEENT: Head exam is unremarkable. Neck is without jugular venous distension. LUNGS: Lungs are clear to auscultation and percussion. Breath sounds decreased. HEART: Rate and Rhythm are regular. First and second heart sounds normal. No murmurs, rubs or gallops. ABDOMEN: Abdominal exam reveals normal bowel sounds. Non-tender and non- distended. No evidence of peritonitis. EXTREMITITES: No clubbing, cyanosis, or edema. Objective - Vital Signs Vital signs: Vital Signs Temp 98.6 F 05/08/18 08:00 Pulse 124 H 05/08/18 09:00 Resp 26 H 05/08/18 09:00 BP 87/60 05/07/18 18:00 Pulse Ox 98 05/08/18 09:00 Intake & Output 05/07/18 05/08/18 05/08/18 18:59 06:59 18:59 Intake Total 2047.701 1234.0 402.01 Output Total 1125 1445 365 Balance 922.701 -211.0 37.01 Weight 101.5 kg 103.5 kg Intake: IV 970 934.0 313 Fluconazole in NaCl,Iso- 50 50 Osm 100 mg In Saline 1 50ml.bag @ 50 mls/hr IVPB DAILY [facility] Rx#:[id number] Phytonadione 10 mg In 50 Sodium Chloride 0.9% 50 ml @ 100 mls/hr IVPB ONCE [facility] Rx#:[id number] Piperacillin-Tazobactam 3 100 25.0 50 .375 gm In Dextrose/Water 1 50ml.bag @ 12.5 mls/hr IVPB Q8HR [facility] Rx#: [id number] Pressure Bag 69 3 Sodium Chloride 0.9% 1, 770 840 210 000 ml @ 70 mls/hr IV . [id number] [facility] Rx#:[id number] Intake, IV Titration 377.701 300 89.01 Amount Norepinephrine 16 mg In 7.158 Dextrose 5% in Water 250 ml @ Titrate IV .Q0M [facility] Rx#:[id number] Propofol 1,000 mg In 370.543 300 89.01 Empty Bag 1 bag @ Titrate IV .Q0M [facility] Rx#: [id number] Blood Product 610 Ffp 24 Cpd Unit 307 [id number] Ffp 24 Cpd Unit 303 [id number] Other 90 Output: Gastric Drainage 400 Urine 1125 1045 365 Other: Voiding Method Ileal Conduit (Right) Ileal Conduit (Right) # Bowel Movements 2 1 ABP, PAP, CO, CI - Last Documented Arterial Blood Pressure 126/66 - Labs CBC & Chem 7: 05/08/18 04:10 05/08/18 04:10 Labs: Abnormal Lab Results - Last 24 Hours (Table) 05/07/18 05/07/18 05/07/18 Range/Units 12:20 12:21 17:47 WBC (3.8-10.6) k/uL RBC (4.30-5.90) m/uL Hgb (13.0-17.5) gm/dL Hct (39.0-53.0) % RDW (11.5-15.5) % Neutrophils # (1.3-7.7) k/uL Lymphocytes # (1.0-4.8) k/uL PT 16.1 H (9.0-12.0) sec INR 1.8 H (<1.2) APTT (22.0-30.0) sec ABG pO2 69 L (83-108) mmHg ABG HCO3 26 H (21-25) mmol/L ABG Total CO2 27 H (19-24) mmol/L ABG O2 Saturation (94-97) % Sodium (137-145) mmol/L Chloride (98-107) mmol/L BUN (9-20) mg/dL Creatinine (0.66-1.25) mg/dL Glucose (74-99) mg/dL POC Glucose (mg/dL) 184 H (75-99) mg/dL Magnesium (1.6-2.3) mg/dL 05/07/18 05/08/18 05/08/18 Range/Units 17:49 00:08 04:10 WBC (3.8-10.6) k/uL RBC (4.30-5.90) m/uL Hgb (13.0-17.5) gm/dL Hct (39.0-53.0) % RDW (11.5-15.5) % Neutrophils # (1.3-7.7) k/uL Lymphocytes # (1.0-4.8) k/uL PT (9.0-12.0) sec INR (<1.2) APTT (22.0-30.0) sec ABG pO2 (83-108) mmHg ABG HCO3 (21-25) mmol/L ABG Total CO2 (19-24) mmol/L ABG O2 Saturation (94-97) % Sodium 147 H (137-145) mmol/L Chloride 117 H (98-107) mmol/L BUN 64 H (9-20) mg/dL Creatinine 1.93 H (0.66-1.25) mg/dL Glucose 132 H (74-99) mg/dL POC Glucose (mg/dL) 164 H 149 H (75-99) mg/dL Magnesium 2.8 H (1.6-2.3) mg/dL 05/08/18 05/08/18 05/08/18 Range/Units 04:10 04:10 04:44 WBC 11.0 H (3.8-10.6) k/uL RBC 2.84 L (4.30-5.90) m/uL Hgb 7.7 L (13.0-17.5) gm/dL Hct 24.7 L (39.0-53.0) % RDW 19.4 H (11.5-15.5) % Neutrophils # 9.4 H (1.3-7.7) k/uL Lymphocytes # 0.7 L (1.0-4.8) k/uL PT (9.0-12.0) sec INR 1.2 H (<1.2) APTT 21.8 L (22.0-30.0) sec ABG pO2 150 H (83-108) mmHg ABG HCO3 (21-25) mmol/L ABG Total CO2 26 H (19-24) mmol/L ABG O2 Saturation 99.7 H (94-97) % Sodium (137-145) mmol/L Chloride (98-107) mmol/L BUN (9-20) mg/dL Creatinine (0.66-1.25) mg/dL Glucose (74-99) mg/dL POC Glucose (mg/dL) (75-99) mg/dL Magnesium (1.6-2.3) mg/dL 05/08/18 Range/Units 06:04 WBC (3.8-10.6) k/uL RBC (4.30-5.90) m/uL Hgb (13.0-17.5) gm/dL Hct (39.0-53.0) % RDW (11.5-15.5) % Neutrophils # (1.3-7.7) k/uL Lymphocytes # (1.0-4.8) k/uL PT (9.0-12.0) sec INR (<1.2) APTT (22.0-30.0) sec ABG pO2 (83-108) mmHg ABG HCO3 (21-25) mmol/L ABG Total CO2 (19-24) mmol/L ABG O2 Saturation (94-97) % Sodium (137-145) mmol/L Chloride (98-107) mmol/L BUN (9-20) mg/dL Creatinine (0.66-1.25) mg/dL Glucose (74-99) mg/dL POC Glucose (mg/dL) 160 H (75-99) mg/dL Magnesium (1.6-2.3) mg/dL Microbiology - Last 24 Hours (Table) 05/04/18 19:40 Blood Culture - Preliminary Blood No Growth after 72 hours 05/05/18 02:30 Urine Culture - Final Urine,Clean Catch Escherichia coli Assessment and Plan Plan: Assessment: 1. Nonoliguric acute kidney injury secondary to ATN secondary to acute anemia and hypotension. Creatinine was 2.5 on admission. It is 1.93 today. Noted to have bilateral hydronephrosis. 2. Acute anemia status post multiple blood transfusions this admission. Hemoglobin stable. Status post EGD on May 07 which revealed duodenitis with duodenal bulb ulcers without any active bleeding. 3. Hypernatremia secondary to lack of oral water intake. 4. Bilateral hydronephrosis. 5. E. coli UTI maintained on antibiotics. Plan: I will change IV fluids to half-normal saline at 75 mL an hour. Continue to monitor renal function and urine output. Avoid nephrotoxic agents and hypotensive episodes. Consider urology evaluation for hydronephrosis.
[2018-05-08] MEDS: SODIUM CHLORIDE 0.45% 1,000 ML IV SCH ×2 (11:03→22:29)
--- NOTE | 2018-05-08 11:16 | P.PN ---
Subjective Progress Note Date: 05/08/18 Mr. Raygoza is a 77-year-old white male patient of Dr. De Leon, who was brought in to the emergency department on the weight of 2018 at 1900 by the ambulance for evaluation of weakness, weeklong history of diarrhea, black tarry stools, falls, hypotension. EMS noted his blood pressure was 82/50, patient was feeling very faint, feeling like he was going to pass out. Denied any chest pain, complained of mild abdominal discomfort. Patient has past medical history of chronic atrial fibrillation, and patient is on Coumadin for anticoagulation. In the emergency department initial blood work revealed a CBC of 22.2, hemoglobin of 4.1, white count was 112, INR was greater than 10, sodium is 137, potassium was 5.0, B1 is 131, creatinine is 2.5. Lactic acid was elevated at 4.1, troponin was negative. Occult stool was positive. EKG showed A. fib with rapid ventricular response with a rate of 127 BPM. Patient has seemed a total of 4 units of packed red blood cells, 2 units of fresh frozen plasma, and follow-up labs showed hemoglobin of 6.5, WBC of 32, INR is down to 1.4. BUN of 126, creatinine is 2.40. Lactic acidosis has improved, and plasma lactic acid is currently down to 2.0. 10 mg of vitamin K was also given. Patient was started on IV Protonix, and GI service has been consulted. While in the emergency department he was noted to have progressively decreasing level of consciousness, and there was a concern about cerebral bleed. Patient was intubated and placed on mechanical ventilator. We're seeing the patient in consultation the intensive care unit, he remains sedated, on mechanical ventilator, on assist control mode of ventilation, with a rate of 22, tidal vital 400, FiO2 40%, PEEP of 5. IV D5W with 3 A of bicarb is infusing at a rate of 75 cc/hr, Diprivan and is at 40 mcg/kg/min, and levofed is at 22 mcg/ min. On empiric antibiotics in the form of Zosyn for a concern of aspiration pneumonia, chest x-ray showed mild pulmonary vascular congestion, enlarged heart. Postintubation chest x-ray showed ET tube approximately 6 cm from the luisa, NG tube in the appropriate position, no pneumothorax, some pulmonary interstitial edema. Brain CT showed old right internal capsule lacunar infarct , cerebral atrophy, but no acute intracranial abnormality. His mornings chest x -ray is overall stable findings, with mild underlying emphysematous change and cardiomegaly without acute infiltrate. Patient remains afebrile, remains in atrial fibrillation and currently remains tachycardic with a rate from 115 to 124 BPM. Other medical history includes bladder cancer, and prostate cancer, status post urostomy placement and chemotherapy in 2006, current smoker, previous history of myocardial infarction. Patient's urostomy bag is connected to a Rocha drainage bag, and he is having urine output in the order of 50-125 ML per hour. On 05/06/2018 the patient is being seen for a follow-up. Is a 77-year-old male patient was hospitalized for bloody stool, black tarry stool and generalized weakness and falls and hypotension. The patient came into the emergency department quite hypotensive and hemodynamically unstable. He is also known to have chronic atrial fibrillation. He was Coumadin toxic at a time of admission. Note that the patient was having also some altered mentation. He was ultimately intubated and placed on a mechanical ventilator and he was brought up to the ICU. This morning is an assist-control mode of ventilation. He is on assist control of 22, tidal volume of 400 with an FiO2 of 40% and PEEP of 5. The blood gases from this morning shows a pH of 7.34 with a pCO2 of 48 and pO2 of 114 and this was done and FiO2 of 40%. The chest x-ray from today shows adequate positioning of the ET tube. The patient also has a subclavian triple-lumen catheter on the right. There is also a left-sided pleural effusion and underlying left lower lobe pneumonia cannot be completely excluded. He does have some baseline cardiomegaly. Note that since yesterday, the patient was fluid resuscitated and he was in the bicarb drip. Was acidotic and the bicarb level subsequently improved and is up to 26 and this morning the bicarb level was 26 and the bicarb infusion was discontinued. Kidney function is also impaired. The patient is currently in acute kidney injury. Creatinine has dropped down to 2.3. As for the white cell count, the patient presented with a white cell count of 32.8 and current white cell count is 28.4. The blood culture is negative. Urine culture showing gram-negative bacillus. The initial urinalysis also showed some budding yeast. Based on all this, the patient is covered with antibiotics. The current antibiotic coverage included Zosyn and I added Diflucan addition. He is currently on normal saline at the rate of 75 mL an hour. Echocardiogram is pending for now. Noted the patient has history of bladder cancer and prostate cancer and he is post urostomy there was placed in 2005. He is known to have coronary artery disease. He has had previous CO. He is a smoker. On 05/07/2019 I'm seeing this patient for a follow-up. The patient remains intubated on a mechanical ventilator. Vent settings are essentially the same on today's evaluation with a tidal volume of 400 with a rate of 22 and FiO2 of 40% and a PEEP of 5. The patient has a pH of 7.45 with a pCO2 of 37 and pO2 of 96. He remains sedated on Diprivan is calm and comfortable. He did have another episode of melanotic stool this morning. INR came up to 3 after being given 2 units of fresh frozen plasma and 10 mg of vitamin K. The plan was to proceed with an EGD today. I talked to gastroenterology. We are going to proceed with the same plan and the patient will be given additional 2 units of fresh frozen plasma and another 5 of vitamin K. Note that the hemoglobin had dropped from 8.6 down to 7.5. He is producing adequate amount of urine output. He is on pressors and the present dose has been weaned down to 2 mics of norepinephrine infusion. Is producing adequate amount of urine output. The neck fluid balance for yesterday was +1.9 L. He was found to have gram- negative bacillus in his urine. He is on a combination of antibiotics including Diflucan, IV Zosyn. The Flagyl can be discontinued at this point in time. The patient remains nothing by mouth. NG tube is in place. No significant bloody output from his NG tube. He is afebrile. No other significant events overnight. On 05/08/2018, I'm seeing this patient for a follow-up. As morning he remains adamant on mechanical ventilator. His still sedated. Yesterday kept on a mechanical ventilator knowing that the patient was going to undergo an EGD. I give him vitamin K and fresh frozen plasma. I brought his INR below 2. Subsequently the patient underwent an EGD that showed some duodenitis and some minimal ulceration without evidence of any acute bleeding. His hemoglobin is stable. No further episodes of GI bleeding has been noted. This morning, the patient is in the process of being given a sedation holiday. Sinuses control mode of ventilation. The vent settings are essentially unchanged and the patient remains on FiO2 of 50% with a PEEP of 5 and tidal volume of 400 with a rate of 22. The blood gases from today showed a pH of 7.45 and a pCO2 of 35 and a pO2 of 150. The chest x-ray findings showed improvement in aeration bilaterally. There is a small left-sided pleural effusion. The patient is afebrile. Hemoglobin is at 7.7. White cell count is 11.0. He is off pressors. Creatinine is also improving is down to 1.9. Objective - Vital Signs Vital signs: Vital Signs Temp 98.6 F 05/08/18 08:00 Pulse 124 H 05/08/18 11:00 Resp 28 H 05/08/18 11:00 BP 99/69 05/08/18 11:00 Pulse Ox 99 05/08/18 11:00 Intake & Output 05/07/18 05/08/18 05/08/18 18:59 06:59 18:59 Intake Total 2047.701 1234.0 402.01 Output Total 1125 1445 365 Balance 922.701 -211.0 37.01 Weight 101.5 kg 103.5 kg Intake: IV 970 934.0 313 Fluconazole in NaCl,Iso- 50 50 Osm 100 mg In Saline 1 50ml.bag @ 50 mls/hr IVPB DAILY [facility] Rx#:[id number] Phytonadione 10 mg In 50 Sodium Chloride 0.9% 50 ml @ 100 mls/hr IVPB ONCE STA Rx#:[id number] Piperacillin-Tazobactam 3 100 25.0 50 .375 gm In Dextrose/Water 1 50ml.bag @ 12.5 mls/hr IVPB Q8HR [facility] Rx#: [id number] Pressure Bag 69 3 Sodium Chloride 0.9% 1, 770 840 210 000 ml @ 70 mls/hr IV . [id number] [facility] Rx#:[id number] Intake, IV Titration 377.701 300 89.01 Amount Norepinephrine 16 mg In 7.158 Dextrose 5% in Water 250 ml @ Titrate IV .Q0M [facility] Rx#:[id number] Propofol 1,000 mg In 370.543 300 89.01 Empty Bag 1 bag @ Titrate IV .Q0M [facility] Rx#: [id number] Blood Product 610 Ffp 24 Cpd Unit 307 [id number] Ffp 24 Cpd Unit 303 [id number] Other 90 Output: Gastric Drainage 400 Urine 1125 1045 365 Other: Voiding Method Ileal Conduit (Right) Ileal Conduit (Right) # Bowel Movements 2 1 ABP, PAP, CO, CI - Last Documented Arterial Blood Pressure 129/59 - Exam GENERAL EXAM: 77-year-old elderly white male, sedated and intubated, on mechanical ventilator in no apparent distress. HEAD: Normocephalic/atraumatic. EYES: Normal reaction of pupils, equal size. Conjunctiva pink, sclera white. NOSE: Clear with pink turbinates. THROAT: No erythema or exudates. NECK: No masses, no JVD, no thyroid enlargement, no adenopathy. The patient has a right IJ triple lumen catheter in place. CHEST: No chest wall deformity. Symmetrical expansion. LUNGS: Equal air entry with coarse breath sounds, scattered rhonchi CVS: Irregular rate and rhythm, normal S1 and S2, no gallops, no murmurs, no rubs ABDOMEN: Soft, nontender. No hepatosplenomegaly, normal bowel sounds, no guarding or rigidity. There is a urostomy present on right abdomen, and active to a Rocha drainage bag with clear yellow urine EXTREMITIES: No clubbing, no edema, no cyanosis, 2+ pulses and upper and lower extremities. MUSCULOSKELETAL: Muscle strength and tone normal. SPINE: No scoliosis or deformity SKIN: No rashes CENTRAL NERVOUS SYSTEM: Sedated, on mechanical ventilator No focal deficits, tone is normal in all 4 extremities. PSYCHIATRIC: To assess, sedated - Labs CBC & Chem 7: 05/08/18 04:10 05/08/18 04:10 Labs: Abnormal Lab Results - Last 24 Hours (Table) 05/07/18 05/07/18 05/07/18 Range/Units 12:20 12:21 17:47 WBC (3.8-10.6) k/uL RBC (4.30-5.90) m/uL Hgb (13.0-17.5) gm/dL Hct (39.0-53.0) % RDW (11.5-15.5) % Neutrophils # (1.3-7.7) k/uL Lymphocytes # (1.0-4.8) k/uL PT 16.1 H (9.0-12.0) sec INR 1.8 H (<1.2) APTT (22.0-30.0) sec ABG pO2 69 L (83-108) mmHg ABG HCO3 26 H (21-25) mmol/L ABG Total CO2 27 H (19-24) mmol/L ABG O2 Saturation (94-97) % Sodium (137-145) mmol/L Chloride (98-107) mmol/L BUN (9-20) mg/dL Creatinine (0.66-1.25) mg/dL Glucose (74-99) mg/dL POC Glucose (mg/dL) 184 H (75-99) mg/dL Magnesium (1.6-2.3) mg/dL 05/07/18 05/08/18 05/08/18 Range/Units 17:49 00:08 04:10 WBC (3.8-10.6) k/uL RBC (4.30-5.90) m/uL Hgb (13.0-17.5) gm/dL Hct (39.0-53.0) % RDW (11.5-15.5) % Neutrophils # (1.3-7.7) k/uL Lymphocytes # (1.0-4.8) k/uL PT (9.0-12.0) sec INR (<1.2) APTT (22.0-30.0) sec ABG pO2 (83-108) mmHg ABG HCO3 (21-25) mmol/L ABG Total CO2 (19-24) mmol/L ABG O2 Saturation (94-97) % Sodium 147 H (137-145) mmol/L Chloride 117 H (98-107) mmol/L BUN 64 H (9-20) mg/dL Creatinine 1.93 H (0.66-1.25) mg/dL Glucose 132 H (74-99) mg/dL POC Glucose (mg/dL) 164 H 149 H (75-99) mg/dL Magnesium 2.8 H (1.6-2.3) mg/dL 05/08/18 05/08/18 05/08/18 Range/Units 04:10 04:10 04:44 WBC 11.0 H (3.8-10.6) k/uL RBC 2.84 L (4.30-5.90) m/uL Hgb 7.7 L (13.0-17.5) gm/dL Hct 24.7 L (39.0-53.0) % RDW 19.4 H (11.5-15.5) % Neutrophils # 9.4 H (1.3-7.7) k/uL Lymphocytes # 0.7 L (1.0-4.8) k/uL PT (9.0-12.0) sec INR 1.2 H (<1.2) APTT 21.8 L (22.0-30.0) sec ABG pO2 150 H (83-108) mmHg ABG HCO3 (21-25) mmol/L ABG Total CO2 26 H (19-24) mmol/L ABG O2 Saturation 99.7 H (94-97) % Sodium (137-145) mmol/L Chloride (98-107) mmol/L BUN (9-20) mg/dL Creatinine (0.66-1.25) mg/dL Glucose (74-99) mg/dL POC Glucose (mg/dL) (75-99) mg/dL Magnesium (1.6-2.3) mg/dL 05/08/18 Range/Units 06:04 WBC (3.8-10.6) k/uL RBC (4.30-5.90) m/uL Hgb (13.0-17.5) gm/dL Hct (39.0-53.0) % RDW (11.5-15.5) % Neutrophils # (1.3-7.7) k/uL Lymphocytes # (1.0-4.8) k/uL PT (9.0-12.0) sec INR (<1.2) APTT (22.0-30.0) sec ABG pO2 (83-108) mmHg ABG HCO3 (21-25) mmol/L ABG Total CO2 (19-24) mmol/L ABG O2 Saturation (94-97) % Sodium (137-145) mmol/L Chloride (98-107) mmol/L BUN (9-20) mg/dL Creatinine (0.66-1.25) mg/dL Glucose (74-99) mg/dL POC Glucose (mg/dL) 160 H (75-99) mg/dL Magnesium (1.6-2.3) mg/dL Microbiology - Last 24 Hours (Table) 05/04/18 19:40 Blood Culture - Preliminary Blood No Growth after 72 hours 05/05/18 02:30 Urine Culture - Final Urine,Clean Catch Escherichia coli Assessment and Plan Plan: Assessment 1 Acute GI bleeding, as the patient was having melanotic black tarry stool at time of admission with coagulopathy. The coagulopathy has been reversed and the patient received a total of 6 units of packed RBC and 2 units of fresh frozen plasma and vitamin K. EGD was done yesterday and showed some duodenitis within the duodenal bulb. Ulceration in the esophagus also seen. No evidence of any acute bleeding. The patient was cleared from the GI standpoint. Hemoglobin remains stable. 2 acute hypotension. This is probably due to a combination of hypovolemic and septic shock. Currently the patient is off pressors and his been off pressors for the past 12 hours. 3 acute kidney injury, nonoliguric, improving and the creatinine is on the decline , adequate urine output and the patient's creatinine is also improving. 4 acute blood loss anemia secondary to above, hemoglobin is stable at 7.7. 5 acute leukocytosis, likely secondary to underlying infection, improving and the white cell count is down to 11 6 chronic atrial fibrillation 7 coagulopathy at the time of admission, reversed with vitamin K and fresh frozen plasma. Subsequently the patient received additional dose of vitamin K and fresh frozen plasma and his INR is normalized. 8 previous history of bladder/prostate cancer status post urostomy placement 9 severe metabolic acidosis recovered and the patient is currently off the bicarb drip 10 coronary artery disease with previous CO. Awaiting a follow-up echocardiogram. the preliminary findings showed some impairment of LV function with an ejection fraction of 25-30%. Is also inferior and septal wall hypokinesis. There is also aortic valve regurgitation moderate MR and moderate degree of pulmonary hypertension. 11 altered mental status secondary to above, neurologic exam is nonfocal and the patient is being given a sedation holidays 12 acute ventilator-dependent respiratory failure secondary to acute hypoxemic respiratory failure. The oxygenation improved and the patient is ventilation also improved with improvement and acid base status. Plan On today's evaluation, we are going to assess the patient's readiness to wean. For that reason I stopped the Diprivan. Once off Diprivan the patient became tachypneic and tachycardic and he was getting agitated without being alert or following commands. At that point I asked the patient to stop the sedation holiday. I'm going to switch this patient to Precedex. If appropriately aroused, the patient would have his weaning parameters checked and he will be given a spontaneous breathing trial. Otherwise, there is no evidence of any acute bleed. The patient is doing well. He is off pressors. Hemoglobin is stable. Renal function is stable. We'll continue to follow and assess his progress accordingly. Critically care evaluation, 32 minutes. Time with Patient: Greater than 30
[2018-05-08 11:58] LABS: Glucose,Whole Blood 152 mg/dL (75-99)
[2018-05-08] MEDS: DEXMEDETOMIDINE/0.9% NACL(PMX) 400 MCG in EMPTY BAG 1 BAG IV SCH ×2 (12:36→20:39)
[2018-05-08] MEDS: ISOSORBIDE MONONITRATE ER 30 MG TAB.ER.24H PO SCH (15:56)
[2018-05-08] MEDS: PYRIDOXINE 50 MG TAB PO SCH (16:52)
--- NOTE | 2018-05-08 18:28 | PN ---
PROGRESS NOTE CHIEF COMPLAINT: Gastrointestinal hemorrhage. HISTORY OF PRESENT ILLNESS: This gentleman has stabilized. Kidney function is improving slightly. He is still on a ventilator. PHYSICAL EXAM: He is in atrial fibrillation. Chest is clear. Vital signs are normal. Abdomen is soft. IMPRESSION: 1. Status post massive upper GI bleed, source unknown. 2. Blood loss anemia. 3. Atrial fibrillation. 4. Renal failure-improving. PLAN: No change in program. MMODL / IJN: [id number] /
[2018-05-08 18:39] LABS: Glucose,Whole Blood 144 mg/dL (75-99)
[2018-05-08 23:40] LABS: Glucose,Whole Blood 173 mg/dL (75-99)
[2018-05-09] MEDS: DEXMEDETOMIDINE/0.9% NACL(PMX) 400 MCG in EMPTY BAG 1 BAG IV SCH ×2 (02:10→07:55)
[2018-05-09] MEDS: PROPOFOL 1,000 MG in EMPTY BAG 1 BAG IV SCH (02:10)
[2018-05-09 04:42] LABS: Anisocytosis Slight; Basophils % (A) 0 %; Eosinophils % (A) 0 %; HCT 26.6 % (39.0-53.0); HGB 8.4 gm/dL (13.0-17.5); Hypochromasia Marked; Lymphocytes # (A) 0.6 k/uL (1.0-4.8); Lymphocytes % (A) 8 %; MCH 28.2 pg (25.0-35.0); MCHC 31.4 g/dL (31.0-37.0); MCV 89.6 fL (80.0-100.0); Mean Platelet Volume 10.9; Monocytes # (A) 0.5 k/uL (0-1.0); Monocytes % (A) 7 %; Neutrophils # (A) 6.3 k/uL (1.3-7.7); Neutrophils % (A) 83 %; Platelet Count 205 k/uL (150-450); Poikilocytosis Slight; RBC 2.97 m/uL (4.30-5.90); RDW 19.1 % (11.5-15.5); WBC 7.6 k/uL (3.8-10.6)
[2018-05-09 04:47] LABS: Calcium 8.9 mg/dL (8.4-10.2); Magnesium 2.8 mg/dL (1.6-2.3); Phosphorus 4.9 mg/dL (2.5-4.5); Potassium 4.7 mmol/L (3.5-5.1)
[2018-05-09 04:53] LABS: INR 1.3 (<1.2); Prothrombin Time 12.2 sec (9.0-12.0)
[2018-05-09 04:56] LABS: Partial Thromboplastin Time 20.6 sec (22.0-30.0)
[2018-05-09 05:28] LABS: ABG Base Excess -0.9 mmol/L; ABG HCO3 23 mmol/L (21-25); ABG Oxygen Saturation 99.2 % (94-97); ABG PCO2 34 mmHg (35-45); ABG PH 7.43 (7.35-7.45); ABG PO2 164 mmHg (83-108)
[2018-05-09 06:00] LABS: Glucose,Whole Blood 198 mg/dL (75-99)
[2018-05-09] MEDS: INSULIN ASPART 100 UNIT/ML 1 ML 10 ML VIAL SQ SCH ×4 (06:10→20:22)
--- NOTE | 2018-05-09 06:55 | XR ---
EXAMINATION TYPE: XR chest 1V DATE OF EXAM: 05/09/2018 HISTORY: vent management. REFERENCE: Previous study dated 05/08/2016. FINDINGS: The patient is ET tube, NG tube and right internal jugular catheter remain in place, unchan ged in appearance. Heart size is upper limits of normal. There continues be left basilar airspace disease. The CP angles are excluded from this study. IMPRESSION: 1. BORDERLINE CARDIOMEGALY. 2. LEFT BASILAR AIRSPACE DISEASE.
[2018-05-09] MEDS: IPRATROPIUM-ALBUTEROL 3 ML NEB INHALATION PRN (07:43)
[2018-05-09] MEDS: CHLORHEXIDINE GLUCONATE 15 ML CUP MUCOUS MEM SCH (07:58)
[2018-05-09] MEDS: METOPROLOL TARTRATE 25 MG TAB PO SCH (08:23)
[2018-05-09] MEDS: PIPERACILLIN-TAZOBACTAM 3.375 GM in DEXTROSE/WATER 1 50ML.BAG IVPB SCH ×3 (08:31→23:19)
[2018-05-09] MEDS: FLUCONAZOLE IN NACL,ISO-OSM 100 MG in SALINE 1 50ML.BAG IVPB SCH (08:32)
[2018-05-09] MEDS: HYDROCORTISONE SUCCINATE 100 MG/2 ML VIAL IV SCH ×2 (08:32→16:34)
[2018-05-09] MEDS: PANTOPRAZOLE 40 MG/10 ML VIAL IV SCH ×2 (08:32→20:13)
--- NOTE | 2018-05-09 09:09 | P.GSCN ---
History of Present Illness Consult date: 05/09/18 Reason for Consult: Hydronephrosis History of present illness: The patient is a 77-year-old male admitted through the emergency room on 05/04 due to weakness and dizziness related to a GI bleed. At the time of admission the patient had a hemoglobin of 4.1 and an INR over 10. He reportedly had a cardiac arrest in the emergency room, was intubated and transferred to the intensive care unit where he remains intubated. He was noted to have an elevated creatinine and a renal ultrasound was obtained on 05/06 which showed mild right and mild to moderate left hydronephrosis. I was asked to see the patient for further evaluation. Patient's past medical history was unobtainable from the patient as he is intubated and is from a consultation performed by me in 2016. He had undergone radical cystoprostatectomy for treatment of bladder cancer at the [facility] in 2004 or 2005 and had received adjuvant chemotherapy. When seen by me in 2016 he had some gross hematuria which was probably related to the use of anticoagulants. Computed tomography scan of the abdomen and pelvis on 01/03/2016 showed no evidence of urolithiasis or hydronephrosis. The patient never returned for any follow-up. Review of Systems ROS unobtainable: due to endotracheal tube Past Medical History Past Medical History: Atrial Fibrillation, Cancer, Myocardial Infarction ([place]) Additional Past Medical History / Comment(s): bladder ca, prostate ca had sx( urostomy) and 1 round of chemo in , afib, lumbee, hemorhoids, pt stated he was told by a dr that he had an enlarged heart, lumbee Last Myocardial Infarction Date:: 2002 History of Any Multi-Drug Resistant Organisms: None Reported Past Surgical History: Adenoidectomy, Tonsillectomy Additional Past Surgical History / Comment(s): bladder and prostate removal-has urostomy Past Anesthesia/Blood Transfusion Reactions: No Reported Reaction Past Psychological History: No Psychological Hx Reported Additional Psychological History / Comment(s): pt lives alone in own home. used to work at [employer], no service. Smoking Status: Former smoker Past Alcohol Use History: Daily Additional Past Alcohol Use History / Comment(s): started smoking at age 15 or 16, smoked 1 ppd but quit 7 days ago. drinks 3 beer per day,denies drug use per daughter. Past Drug Use History: None Reported - Past Family History Father Family Medical History: No Reported History Mother Family Medical History: No Reported History Medications and Allergies Home Medications Medication Instructions Recorded Confirmed Type Isosorbide Mononitrate [Isosorbide 30 mg PO DAILY 01/02/16 05/04/18 History Mononitrate ER] Pyridoxine [Vitamin B-6] 100 mg PO DAILY 01/02/16 05/04/18 History Furosemide [Lasix] 40 mg PO DAILY #30 tab 01/08/16 05/04/18 Rx Lisinopril [Zestril] 2.5 mg PO DAILY #30 tab 01/08/16 05/04/18 Rx Spironolactone [Aldactone] 25 mg PO DAILY #30 tab 01/08/16 05/04/18 Rx Metoprolol Tartrate [Lopressor] 75 mg PO BID 05/04/18 05/04/18 History Multivitamins, Thera [Multivitamin 1 tab PO DAILY 05/04/18 05/04/18 History (formulary)] Warfarin Sodium [Coumadin] 8 mg PO DAILY 05/04/18 05/04/18 History Allergies Allergy/AdvReac Type Severity Reaction Status Date / Time No Known Allergies Allergy Verified 05/04/18 21:14 Surgical - Exam Vital Signs Temp Pulse Resp BP Pulse Ox 97.1 F L 72 16 85/50 95 05/04/18 19:20 05/04/18 19:20 05/04/18 19:20 05/04/18 19:20 05/04/18 19:20 - General moderate distress, chronically ill, obese - Neck no masses - Respiratory other (The patient is intubated and on a ventilator) - Abdomen A functioning ureteroscopy is present in the right lower quadrant. The stoma is pink and there is no evidence of stomal stenosis. Abdomen: soft, non tender, no organomegaly Results - Labs 05/09/18 04:20 05/09/18 04:20 Abnormal Lab Results - Last 24 Hours (Table) 05/08/18 05/08/18 05/08/18 Range/Units 11:57 18:30 23:39 RBC (4.30-5.90) m/uL Hgb (13.0-17.5) gm/dL Hct (39.0-53.0) % RDW (11.5-15.5) % Lymphocytes # (1.0-4.8) k/uL PT (9.0-12.0) sec INR (<1.2) APTT (22.0-30.0) sec ABG pCO2 (35-45) mmHg ABG pO2 (83-108) mmHg ABG O2 Saturation (94-97) % Sodium (137-145) mmol/L Chloride (98-107) mmol/L BUN (9-20) mg/dL Creatinine (0.66-1.25) mg/dL Glucose (74-99) mg/dL POC Glucose (mg/dL) 152 H 144 H 173 H (75-99) mg/dL Phosphorus (2.5-4.5) mg/dL Magnesium (1.6-2.3) mg/dL 05/09/18 05/09/18 05/09/18 Range/Units 04:20 04:20 04:20 RBC 2.97 L (4.30-5.90) m/uL Hgb 8.4 L (13.0-17.5) gm/dL Hct 26.6 L (39.0-53.0) % RDW 19.1 H (11.5-15.5) % Lymphocytes # 0.6 L (1.0-4.8) k/uL PT 12.2 H (9.0-12.0) sec INR 1.3 H (<1.2) APTT 20.6 L (22.0-30.0) sec ABG pCO2 (35-45) mmHg ABG pO2 (83-108) mmHg ABG O2 Saturation (94-97) % Sodium 149 H (137-145) mmol/L Chloride 119 H (98-107) mmol/L BUN 60 H (9-20) mg/dL Creatinine 2.01 H (0.66-1.25) mg/dL Glucose 178 H (74-99) mg/dL POC Glucose (mg/dL) (75-99) mg/dL Phosphorus 4.9 H (2.5-4.5) mg/dL Magnesium 2.8 H (1.6-2.3) mg/dL 05/09/18 05/09/18 Range/Units 04:57 05:55 RBC (4.30-5.90) m/uL Hgb (13.0-17.5) gm/dL Hct (39.0-53.0) % RDW (11.5-15.5) % Lymphocytes # (1.0-4.8) k/uL PT (9.0-12.0) sec INR (<1.2) APTT (22.0-30.0) sec ABG pCO2 34 L (35-45) mmHg ABG pO2 164 H (83-108) mmHg ABG O2 Saturation 99.2 H (94-97) % Sodium (137-145) mmol/L Chloride (98-107) mmol/L BUN (9-20) mg/dL Creatinine (0.66-1.25) mg/dL Glucose (74-99) mg/dL POC Glucose (mg/dL) 198 H (75-99) mg/dL Phosphorus (2.5-4.5) mg/dL Magnesium (1.6-2.3) mg/dL Microbiology - Last 24 Hours (Table) 05/04/18 19:40 Blood Culture - Preliminary Blood No Growth after 96 hours Diabetes panel 05/09/18 Range/Units 04:20 Sodium 149 H (137-145) mmol/L Potassium 4.7 (3.5-5.1) mmol/L Chloride 119 H (98-107) mmol/L Carbon Dioxide 24 (22-30) mmol/L BUN 60 H (9-20) mg/dL Creatinine 2.01 H (0.66-1.25) mg/dL Glucose 178 H (74-99) mg/dL Calcium 8.9 (8.4-10.2) mg/dL Calcium panel 05/09/18 Range/Units 04:20 Calcium 8.9 (8.4-10.2) mg/dL Phosphorus 4.9 H (2.5-4.5) mg/dL Pituitary panel 05/09/18 Range/Units 04:20 Sodium 149 H (137-145) mmol/L Potassium 4.7 (3.5-5.1) mmol/L Chloride 119 H (98-107) mmol/L Carbon Dioxide 24 (22-30) mmol/L BUN 60 H (9-20) mg/dL Creatinine 2.01 H (0.66-1.25) mg/dL Glucose 178 H (74-99) mg/dL Calcium 8.9 (8.4-10.2) mg/dL Adrenal panel 05/09/18 Range/Units 04:20 Sodium 149 H (137-145) mmol/L Potassium 4.7 (3.5-5.1) mmol/L Chloride 119 H (98-107) mmol/L Carbon Dioxide 24 (22-30) mmol/L BUN 60 H (9-20) mg/dL Creatinine 2.01 H (0.66-1.25) mg/dL Glucose 178 H (74-99) mg/dL Calcium 8.9 (8.4-10.2) mg/dL Assessment and Plan (1) Hydronephrosis Narrative/Plan: The source of the patient's hydronephrosis is not clear. Stenosis at the junction of the ureters and ileum is not unusual and could explain the mild bilateral hydronephrosis. This could be further evaluated by a loopogram performed by instilling contrast through the urostomy. The patient's renal function has improved since admission and in view of this the loopogram is not urgent and could be set up as an outpatient following discharge. Ideally the patient would be reevaluated at the [facility]. Current Visit: Yes Status: Acute Code(s): N13.30 - UNSPECIFIED HYDRONEPHROSIS SNOMED Code(s): 58641840
--- NOTE | 2018-05-09 09:32 | P.PN ---
Subjective Patient is seen in follow-up for acute kidney injury. Creatinine in 2016 was 0.7. It is slightly worse at 2.01 today compared to yesterday. Patient presented with hemoglobin of 4.1 and has received multiple blood transfusions. He underwent EGD on May 07 which revealed duodenitis with duodenal bulb ulcers with no active bleeding. He is off all vasopressors. He is nonoliguric. Also being treated for E. coli UTI. He was extubated this morning. Sodium level is up to 149. Vital signs are stable. General: The patient appeared well nourished and normally developed. HEENT: Head exam is unremarkable. Neck is without jugular venous distension. LUNGS: Lungs are clear to auscultation and percussion. Breath sounds decreased. HEART: Rate and Rhythm are regular. First and second heart sounds normal. No murmurs, rubs or gallops. ABDOMEN: Abdominal exam reveals normal bowel sounds. Non-tender and non- distended. No evidence of peritonitis. EXTREMITITES: No clubbing, cyanosis, or edema. Objective - Vital Signs Vital signs: Vital Signs Temp 97.9 F 05/09/18 08:00 Pulse 124 H 05/09/18 08:16 Resp 25 H 05/09/18 08:00 BP 107/69 05/08/18 19:00 Pulse Ox 100 05/09/18 08:00 Intake & Output 05/08/18 05/09/18 05/09/18 18:59 06:59 18:59 Intake Total 2904.103 5714.215 302.356 Output Total 1251 1135 245 Balance 128.566 578.215 57.356 Weight 101.4 kg Intake: IV 1068 986.0 156 Fluconazole in NaCl,Iso- 50 Osm 100 mg In Saline 1 50ml.bag @ 50 mls/hr IVPB DAILY [facility] Rx#:[id number] Piperacillin-Tazobactam 3 100 50.0 .375 gm In Dextrose/Water 1 50ml.bag @ 12.5 mls/hr IVPB Q8HR [facility] Rx#: [id number] Pressure Bag 33 36 6 Sodium Chloride 0.45% 1, 675 900 150 000 ml @ 75 mls/hr IV . [id number] [facility] Rx#:[id number] Sodium Chloride 0.9% 1, 210 000 ml @ 70 mls/hr IV . [id number] [facility] Rx#:[id number] Intake, IV Titration 311.566 183.215 122.356 Amount Dexmedetomidine/0.9% NaCl 30.080 153.968 100 (Pmx) 400 mcg In Empty Bag 1 bag @ Titrate IV . Q0M [facility] Rx#:[id number] Propofol 1,000 mg In 281.486 29.247 22.356 Empty Bag 1 bag @ Titrate IV .Q0M [facility] Rx#: [id number] Tube Feeding 484 24 Other 60 Output: Gastric Drainage 200 Urine 1051 1135 245 Other: Voiding Method Ileal Conduit (Right) Ileal Conduit (Right) # Bowel Movements 1 ABP, PAP, CO, CI - Last Documented Arterial Blood Pressure 150/77 - Labs CBC & Chem 7: 05/09/18 04:20 05/09/18 04:20 Labs: Abnormal Lab Results - Last 24 Hours (Table) 05/08/18 05/08/18 05/08/18 Range/Units 11:57 18:30 23:39 RBC (4.30-5.90) m/uL Hgb (13.0-17.5) gm/dL Hct (39.0-53.0) % RDW (11.5-15.5) % Lymphocytes # (1.0-4.8) k/uL PT (9.0-12.0) sec INR (<1.2) APTT (22.0-30.0) sec ABG pCO2 (35-45) mmHg ABG pO2 (83-108) mmHg ABG O2 Saturation (94-97) % Sodium (137-145) mmol/L Chloride (98-107) mmol/L BUN (9-20) mg/dL Creatinine (0.66-1.25) mg/dL Glucose (74-99) mg/dL POC Glucose (mg/dL) 152 H 144 H 173 H (75-99) mg/dL Phosphorus (2.5-4.5) mg/dL Magnesium (1.6-2.3) mg/dL 05/09/18 05/09/18 05/09/18 Range/Units 04:20 04:20 04:20 RBC 2.97 L (4.30-5.90) m/uL Hgb 8.4 L (13.0-17.5) gm/dL Hct 26.6 L (39.0-53.0) % RDW 19.1 H (11.5-15.5) % Lymphocytes # 0.6 L (1.0-4.8) k/uL PT 12.2 H (9.0-12.0) sec INR 1.3 H (<1.2) APTT 20.6 L (22.0-30.0) sec ABG pCO2 (35-45) mmHg ABG pO2 (83-108) mmHg ABG O2 Saturation (94-97) % Sodium 149 H (137-145) mmol/L Chloride 119 H (98-107) mmol/L BUN 60 H (9-20) mg/dL Creatinine 2.01 H (0.66-1.25) mg/dL Glucose 178 H (74-99) mg/dL POC Glucose (mg/dL) (75-99) mg/dL Phosphorus 4.9 H (2.5-4.5) mg/dL Magnesium 2.8 H (1.6-2.3) mg/dL 05/09/18 05/09/18 Range/Units 04:57 05:55 RBC (4.30-5.90) m/uL Hgb (13.0-17.5) gm/dL Hct (39.0-53.0) % RDW (11.5-15.5) % Lymphocytes # (1.0-4.8) k/uL PT (9.0-12.0) sec INR (<1.2) APTT (22.0-30.0) sec ABG pCO2 34 L (35-45) mmHg ABG pO2 164 H (83-108) mmHg ABG O2 Saturation 99.2 H (94-97) % Sodium (137-145) mmol/L Chloride (98-107) mmol/L BUN (9-20) mg/dL Creatinine (0.66-1.25) mg/dL Glucose (74-99) mg/dL POC Glucose (mg/dL) 198 H (75-99) mg/dL Phosphorus (2.5-4.5) mg/dL Magnesium (1.6-2.3) mg/dL Microbiology - Last 24 Hours (Table) 05/04/18 19:40 Blood Culture - Preliminary Blood No Growth after 96 hours Assessment and Plan Plan: Assessment: 1. Nonoliguric acute kidney injury secondary to ATN secondary to acute anemia and hypotension. Creatinine was 2.5 on admission. It is 2.01 today. Noted to have bilateral hydronephrosis. 2. Acute anemia status post multiple blood transfusions this admission. Hemoglobin stable. Status post EGD on May 07 which revealed duodenitis with duodenal bulb ulcers without any active bleeding. 3. Hypernatremia secondary to lack of oral water intake. 4. Bilateral hydronephrosis. Evaluated by urology. No interventions planned at this time. 5. E. coli UTI maintained on antibiotics. Plan: I will change IV fluids to D5W at 80 mL an hour. Repeat sodium level this evening. Continue to monitor renal function and urine output. Avoid nephrotoxic agents and hypotensive episodes.
[2018-05-09] MEDS: DEXTROSE 5% IN WATER 1,000 ML IV SCH ×2 (10:19→22:35)
[2018-05-09] MEDS ORDERED: METOPROLOL TARTRATE 5 MG/5 ML VIAL IVP ONE (10:21)
[2018-05-09 12:11] LABS: Glucose,Whole Blood 195 mg/dL (75-99)
--- NOTE | 2018-05-09 12:17 | CONS ---
CONSULTATION DATE OF SERVICE: 05/09/2018. HISTORY: Mr. Putnam is a 77-year-old gentleman who is seen for evaluation of atrial fibrillation. The patient's medical records were reviewed. This patient was admitted to the intensive care unit on May 04 with a complaint of weakness and week-long black tarry stools. The patient, in the emergency room at that time, was found to have blood pressure of 82/50. Patient's hemoglobin was 4.1, and INR was more than 10. The patient had been taking Coumadin for the atrial fibrillation. Patient was in lactic acidosis. Patient was intubated and was treated appropriately with blood and INR is corrected. This morning the patient is extubated. His heart rate now remains in the range of 120 to 130. The patient's echocardiogram shows ejection fraction of 20% to 25%. There is no definite previous history of myocardial infarction. PAST MEDICAL HISTORY: Includes a history of carcinoma of the prostate. The patient has a urostomy tube. History of hemorrhoids. He has been told in the past that he has an enlarged heart. History of tonsillectomy and adenoidectomy. HOME MEDICATIONS: 1. Isordil 30 mg daily. 2. Lasix 40 mg daily. 3. Zestril 2.5 mg daily. 4. Spironolactone once a day. 5. Coumadin 8 mg daily. 6. Lopressor 75 mg b.i.d. PHYSICAL EXAMINATION: At present reveals a 77-year-old gentleman who is agitated and at times confused. The patient's blood pressure is 118/84 mmHg, heart rate is 115 to 120, respiratory rate is 20 to 24. The patient was just extubated this morning. HEENT examination is negative. Neck is supple. There is no increase in jugular venous pressure. Both the carotid pulses are felt. There is no bruit. Chest is symmetrical. Heart, the PMI is not felt. First and second heart sounds are heard. Lungs examination reveals few scattered wheezes. Abdomen is soft. Extremities, peripheral pulses 2+. The patient had upper GI endoscopy which did not show any significant abnormalities. The patient's INR is 1.2. FINAL IMPRESSION: 1. This patient is admitted with gastrointestinal bleed, possibly secondary to hypercoagulability secondary to Coumadin. Upper GI endoscopy did not show any significant abnormality. 2. Atrial fibrillation with moderately rapid ventricular response. 3. Cardiomyopathy. RECOMMENDATIONS: At present, I will increase the Lopressor to 75 mg t.i.d. If the patient's heart rate remained still significantly rapid after next 24 hours, we may consider to treat with amiodarone. Once the patient's creatinine and blood pressure are stable, we will consider treating the patient with BENOIT inhibitor. After the patient's GI bleeding and hemoglobin remains stable, we may consider to treat the patient with Eliquis rather than the Coumadin in view that his INR is labile. MMODL / IJN: [id number] /
--- NOTE | 2018-05-09 13:46 | P.PN ---
Subjective Progress Note Date: 05/09/18 Mr. Raygoza is a 77-year-old white male patient of Dr. De Leon, who was brought in to the emergency department on the weight of 2018 at 1900 by the ambulance for evaluation of weakness, weeklong history of diarrhea, black tarry stools, falls, hypotension. EMS noted his blood pressure was 82/50, patient was feeling very faint, feeling like he was going to pass out. Denied any chest pain, complained of mild abdominal discomfort. Patient has past medical history of chronic atrial fibrillation, and patient is on Coumadin for anticoagulation. In the emergency department initial blood work revealed a CBC of 22.2, hemoglobin of 4.1, white count was 112, INR was greater than 10, sodium is 137, potassium was 5.0, B1 is 131, creatinine is 2.5. Lactic acid was elevated at 4.1, troponin was negative. Occult stool was positive. EKG showed A. fib with rapid ventricular response with a rate of 127 BPM. Patient has seemed a total of 4 units of packed red blood cells, 2 units of fresh frozen plasma, and follow-up labs showed hemoglobin of 6.5, WBC of 32, INR is down to 1.4. BUN of 126, creatinine is 2.40. Lactic acidosis has improved, and plasma lactic acid is currently down to 2.0. 10 mg of vitamin K was also given. Patient was started on IV Protonix, and GI service has been consulted. While in the emergency department he was noted to have progressively decreasing level of consciousness, and there was a concern about cerebral bleed. Patient was intubated and placed on mechanical ventilator. We're seeing the patient in consultation the intensive care unit, he remains sedated, on mechanical ventilator, on assist control mode of ventilation, with a rate of 22, tidal vital 400, FiO2 40%, PEEP of 5. IV D5W with 3 A of bicarb is infusing at a rate of 75 cc/hr, Diprivan and is at 40 mcg/kg/min, and levofed is at 22 mcg/ min. On empiric antibiotics in the form of Zosyn for a concern of aspiration pneumonia, chest x-ray showed mild pulmonary vascular congestion, enlarged heart. Postintubation chest x-ray showed ET tube approximately 6 cm from the luisa, NG tube in the appropriate position, no pneumothorax, some pulmonary interstitial edema. Brain CT showed old right internal capsule lacunar infarct , cerebral atrophy, but no acute intracranial abnormality. His mornings chest x -ray is overall stable findings, with mild underlying emphysematous change and cardiomegaly without acute infiltrate. Patient remains afebrile, remains in atrial fibrillation and currently remains tachycardic with a rate from 115 to 124 BPM. Other medical history includes bladder cancer, and prostate cancer, status post urostomy placement and chemotherapy in 2006, current smoker, previous history of myocardial infarction. Patient's urostomy bag is connected to a Rocha drainage bag, and he is having urine output in the order of 50-125 ML per hour. On 05/06/2018 the patient is being seen for a follow-up. Is a 77-year-old male patient was hospitalized for bloody stool, black tarry stool and generalized weakness and falls and hypotension. The patient came into the emergency department quite hypotensive and hemodynamically unstable. He is also known to have chronic atrial fibrillation. He was Coumadin toxic at a time of admission. Note that the patient was having also some altered mentation. He was ultimately intubated and placed on a mechanical ventilator and he was brought up to the ICU. This morning is an assist-control mode of ventilation. He is on assist control of 22, tidal volume of 400 with an FiO2 of 40% and PEEP of 5. The blood gases from this morning shows a pH of 7.34 with a pCO2 of 48 and pO2 of 114 and this was done and FiO2 of 40%. The chest x-ray from today shows adequate positioning of the ET tube. The patient also has a subclavian triple-lumen catheter on the right. There is also a left-sided pleural effusion and underlying left lower lobe pneumonia cannot be completely excluded. He does have some baseline cardiomegaly. Note that since yesterday, the patient was fluid resuscitated and he was in the bicarb drip. Was acidotic and the bicarb level subsequently improved and is up to 26 and this morning the bicarb level was 26 and the bicarb infusion was discontinued. Kidney function is also impaired. The patient is currently in acute kidney injury. Creatinine has dropped down to 2.3. As for the white cell count, the patient presented with a white cell count of 32.8 and current white cell count is 28.4. The blood culture is negative. Urine culture showing gram-negative bacillus. The initial urinalysis also showed some budding yeast. Based on all this, the patient is covered with antibiotics. The current antibiotic coverage included Zosyn and I added Diflucan addition. He is currently on normal saline at the rate of 75 mL an hour. Echocardiogram is pending for now. Noted the patient has history of bladder cancer and prostate cancer and he is post urostomy there was placed in 2005. He is known to have coronary artery disease. He has had previous NV. He is a smoker. On 05/07/2019 I'm seeing this patient for a follow-up. The patient remains intubated on a mechanical ventilator. Vent settings are essentially the same on today's evaluation with a tidal volume of 400 with a rate of 22 and FiO2 of 40% and a PEEP of 5. The patient has a pH of 7.45 with a pCO2 of 37 and pO2 of 96. He remains sedated on Diprivan is calm and comfortable. He did have another episode of melanotic stool this morning. INR came up to 3 after being given 2 units of fresh frozen plasma and 10 mg of vitamin K. The plan was to proceed with an EGD today. I talked to gastroenterology. We are going to proceed with the same plan and the patient will be given additional 2 units of fresh frozen plasma and another 5 of vitamin K. Note that the hemoglobin had dropped from 8.6 down to 7.5. He is producing adequate amount of urine output. He is on pressors and the present dose has been weaned down to 2 mics of norepinephrine infusion. Is producing adequate amount of urine output. The neck fluid balance for yesterday was +1.9 L. He was found to have gram- negative bacillus in his urine. He is on a combination of antibiotics including Diflucan, IV Zosyn. The Flagyl can be discontinued at this point in time. The patient remains nothing by mouth. NG tube is in place. No significant bloody output from his NG tube. He is afebrile. No other significant events overnight. On 05/08/2018, I'm seeing this patient for a follow-up. As morning he remains adamant on mechanical ventilator. His still sedated. Yesterday kept on a mechanical ventilator knowing that the patient was going to undergo an EGD. I give him vitamin K and fresh frozen plasma. I brought his INR below 2. Subsequently the patient underwent an EGD that showed some duodenitis and some minimal ulceration without evidence of any acute bleeding. His hemoglobin is stable. No further episodes of GI bleeding has been noted. This morning, the patient is in the process of being given a sedation holiday. Sinuses control mode of ventilation. The vent settings are essentially unchanged and the patient remains on FiO2 of 50% with a PEEP of 5 and tidal volume of 400 with a rate of 22. The blood gases from today showed a pH of 7.45 and a pCO2 of 35 and a pO2 of 150. The chest x-ray findings showed improvement in aeration bilaterally. There is a small left-sided pleural effusion. The patient is afebrile. Hemoglobin is at 7.7. White cell count is 11.0. He is off pressors. Creatinine is also improving is down to 1.9. On 05/09/2018, the patient is being seen in follow-up. This morning he was still on a mechanical ventilator. Note that attempts to wean the patient off sedation failed yesterday as the patient became agitated and lethargic and tachypneic and tachycardic and he was not waking up appropriately and as such the weaning trial was aborted and no further weaning was done. At that point I switch this patient to Precedex and gradually wean down the Diprivan. This morning, the patient was on full dose Precedex and Diprivan. We attempted to gradually wean off the Diprivan and the patient woke up and he was at the point where he was following simple commands. He was becoming slightly more anxious and tachycardic and tachypneic. At that point, a quick spontaneous breathing trial was given and subsequently I decide to extubate this patient thinking that he may not be able to handle a full spontaneous breathing trial. I extubate the patient to a nasal cannula. He did well and I'm in the process of gradually weaning off his Precedex for now. No signs of any respiratory distress. No stridor. No signs of any upper GI bleeding. The patient is being treated for an E. coli urinary tract infection. He remains on IV Zosyn as a broad-spectrum antibiotic coverage. He is also on Diflucan for yeast in his UA. Following extubation, the patient started talking. He was still on that the patient was of sedatives. No significant agitation. He remained tachycardic. For that reason he was given IV Lopressor single dose and I should be able to switch him to oral metoprolol once his swallow gets cleared post extubation. No other significant events otherwise for now. No signs of any GI bleeding. Hemoglobin remains stable. At 8.4. The patient's of the coagulation has been reversing the Coumadin toxicity is completely recovered and INR is down to 1.3. Anticoagulation has not been offered to this patient at this point in time. That hemoglobin is stable at 8.4. Coagulation profile is normalized and the patient's Coumadin toxicity is recovered. Objective - Vital Signs Vital signs: Vital Signs Temp 98.2 F 05/09/18 12:00 Pulse 129 H 05/09/18 13:00 Resp 24 05/09/18 13:00 BP 118/84 05/09/18 12:00 Pulse Ox 98 05/09/18 13:00 Intake & Output 05/08/18 05/09/18 05/09/18 18:59 06:59 18:59 Intake Total 3258.152 3190.215 781.064 Output Total 1251 1135 656 Balance 128.566 578.215 125.064 Weight 101.4 kg Intake: IV 1068 986.0 560 Dextrose 5% in Water 1, 320 000 ml @ 80 mls/hr IV . [id number] [facility] Rx#:[id number] Fluconazole in NaCl,Iso- 50 Osm 100 mg In Saline 1 50ml.bag @ 50 mls/hr IVPB DAILY [facility] Rx#:[id number] Piperacillin-Tazobactam 3 100 50.0 .375 gm In Dextrose/Water 1 50ml.bag @ 12.5 mls/hr IVPB Q8HR [facility] Rx#: [id number] Pressure Bag 33 36 15 Sodium Chloride 0.45% 1, 675 900 225 000 ml @ 75 mls/hr IV . [id number] [facility] Rx#:[id number] Sodium Chloride 0.9% 1, 210 000 ml @ 70 mls/hr IV . [id number] [facility] Rx#:[id number] Intake, IV Titration 311.566 183.215 173.064 Amount Dexmedetomidine/0.9% NaCl 30.080 153.968 150.708 (Pmx) 400 mcg In Empty Bag 1 bag @ Titrate IV . Q0M [facility] Rx#:[id number] Propofol 1,000 mg In 281.486 29.247 22.356 Empty Bag 1 bag @ Titrate IV .Q0M [facility] Rx#: [id number] Tube Feeding 484 48 Other 60 Output: Gastric Drainage 200 Urine 1051 1135 656 Other: Voiding Method Ileal Conduit (Right) Ileal Conduit (Right) Ileal Conduit ( Right) # Bowel Movements 1 ABP, PAP, CO, CI - Last Documented Arterial Blood Pressure 148/70 - Exam GENERAL EXAM: 77-year-old elderly white male, the patient is extubated. The patient is calm and comfortable. The patient is still under the effect of Precedex. Following some simple commands. HEAD: Normocephalic/atraumatic. EYES: Normal reaction of pupils, equal size. Conjunctiva pink, sclera white. NOSE: Clear with pink turbinates. THROAT: No erythema or exudates. NECK: No masses, no JVD, no thyroid enlargement, no adenopathy. The patient has a right IJ triple lumen catheter in place. CHEST: No chest wall deformity. Symmetrical expansion. LUNGS: Equal air entry with coarse breath sounds, scattered rhonchi CVS: Irregular rate and rhythm, normal S1 and S2, no gallops, no murmurs, no rubs ABDOMEN: Soft, nontender. No hepatosplenomegaly, normal bowel sounds, no guarding or rigidity. There is a urostomy present on right abdomen, and active to a Rocha drainage bag with clear yellow urine EXTREMITIES: No clubbing, no edema, no cyanosis, 2+ pulses and upper and lower extremities. MUSCULOSKELETAL: Muscle strength and tone normal. SPINE: No scoliosis or deformity SKIN: No rashes CENTRAL NERVOUS SYSTEM: Able to move all 4 extremities without any limitation. PSYCHIATRIC: To assess, sedated - Labs CBC & Chem 7: 05/09/18 04:20 05/09/18 04:20 Labs: Abnormal Lab Results - Last 24 Hours (Table) 05/08/18 05/08/18 05/09/18 Range/Units 18:30 23:39 04:20 RBC (4.30-5.90) m/uL Hgb (13.0-17.5) gm/dL Hct (39.0-53.0) % RDW (11.5-15.5) % Lymphocytes # (1.0-4.8) k/uL PT (9.0-12.0) sec INR (<1.2) APTT (22.0-30.0) sec ABG pCO2 (35-45) mmHg ABG pO2 (83-108) mmHg ABG O2 Saturation (94-97) % Sodium 149 H (137-145) mmol/L Chloride 119 H (98-107) mmol/L BUN 60 H (9-20) mg/dL Creatinine 2.01 H (0.66-1.25) mg/dL Glucose 178 H (74-99) mg/dL POC Glucose (mg/dL) 144 H 173 H (75-99) mg/dL Phosphorus 4.9 H (2.5-4.5) mg/dL Magnesium 2.8 H (1.6-2.3) mg/dL 05/09/18 05/09/18 05/09/18 Range/Units 04:20 04:20 04:57 RBC 2.97 L (4.30-5.90) m/uL Hgb 8.4 L (13.0-17.5) gm/dL Hct 26.6 L (39.0-53.0) % RDW 19.1 H (11.5-15.5) % Lymphocytes # 0.6 L (1.0-4.8) k/uL PT 12.2 H (9.0-12.0) sec INR 1.3 H (<1.2) APTT 20.6 L (22.0-30.0) sec ABG pCO2 34 L (35-45) mmHg ABG pO2 164 H (83-108) mmHg ABG O2 Saturation 99.2 H (94-97) % Sodium (137-145) mmol/L Chloride (98-107) mmol/L BUN (9-20) mg/dL Creatinine (0.66-1.25) mg/dL Glucose (74-99) mg/dL POC Glucose (mg/dL) (75-99) mg/dL Phosphorus (2.5-4.5) mg/dL Magnesium (1.6-2.3) mg/dL 05/09/18 05/09/18 Range/Units 05:55 12:09 RBC (4.30-5.90) m/uL Hgb (13.0-17.5) gm/dL Hct (39.0-53.0) % RDW (11.5-15.5) % Lymphocytes # (1.0-4.8) k/uL PT (9.0-12.0) sec INR (<1.2) APTT (22.0-30.0) sec ABG pCO2 (35-45) mmHg ABG pO2 (83-108) mmHg ABG O2 Saturation (94-97) % Sodium (137-145) mmol/L Chloride (98-107) mmol/L BUN (9-20) mg/dL Creatinine (0.66-1.25) mg/dL Glucose (74-99) mg/dL POC Glucose (mg/dL) 198 H 195 H (75-99) mg/dL Phosphorus (2.5-4.5) mg/dL Magnesium (1.6-2.3) mg/dL Microbiology - Last 24 Hours (Table) 05/04/18 19:40 Blood Culture - Preliminary Blood No Growth after 96 hours Assessment and Plan Plan: Assessment 1 Acute GI bleeding, as the patient was having melanotic black tarry stool at time of admission with coagulopathy. This has recovered and EGD was done and there is no signs of any acute GI bleed and hemoglobin is stable at 8.4. Correlation profile is also reversed. 2 acute hypotension. This is probably due to a combination of hypovolemic and septic shock. Currently the patient is off pressors and his been off pressors for the past 24 hours. 3 acute kidney injury, nonoliguric, improving and the creatinine is on the decline , and the renal function continues to improve 4 acute blood loss anemia secondary to above, hemoglobin is stable at 8.4 5 acute leukocytosis, likely secondary to underlying infection, improving and the white cell count is down to 7.6 6 chronic atrial fibrillation 7 coagulopathy at the time of admission, reversed with vitamin K and fresh frozen plasma. Subsequently the patient received additional dose of vitamin K and fresh frozen plasma and his INR is normalized. 8 previous history of bladder/prostate cancer status post urostomy placement 9 severe metabolic acidosis recovered 10 coronary artery disease with previous NV. Awaiting a follow-up echocardiogram. the preliminary findings showed some impairment of LV function with an ejection fraction of 25-30%. Is also inferior and septal wall hypokinesis. There is also aortic valve regurgitation moderate MR and moderate degree of pulmonary hypertension. 11 altered mental status secondary to above, neurologic exam is nonfocal and the patient is being given a sedation holidays 12 acute ventilator-dependent respiratory failure secondary to acute hypoxemic respiratory failure. The patient was extubated this morning and currently is on Lanoxin by nasal cannula. 13 E. coli urinary tract infection currently on IV Zosyn Plan Wean off Precedex gradually monitor the mental status. Monitor respiratory status. I offered an incentive spirometer. Continue DuoNeb the right seems [id number]. Continue IV Zosyn and Diflucan. No pressors for now. Therefore she continues to improve. Gradually introduce metoprolol if he is able to swallow otherwise will use IV form. Continue monitoring the hemoglobin and keep the patient off Coumadin or anticoagulation agent for the time being. Do not start diuretics yet. No anticoagulation for now. We'll continue to follow and will make further recommendations based on the patient's overall progress. This is a critically care evaluation, 40 minutes. Time with Patient: Greater than 30
[2018-05-09] MEDS ORDERED: DEXTROSE 5% IN WATER 100 ML with AMIODARONE 150 MG IV ONE (14:17)
[2018-05-09] MEDS: AMIODARONE 450 MG in DEXTROSE 5% IN WATER 250 ML IV SCH ×4 (14:45→22:13)
[2018-05-09] MEDS ORDERED: QUEtiapine 100 MG TAB PO STA (15:15)
[2018-05-09] MEDS: PYRIDOXINE 50 MG TAB PO SCH (15:59)
[2018-05-09] MEDS: ISOSORBIDE MONONITRATE ER 30 MG TAB.ER.24H PO SCH (15:59)
[2018-05-09] MEDS: METOPROLOL TARTRATE 50 MG TAB PO SCH ×2 (16:34→21:13)
[2018-05-09 17:05] LABS: Glucose,Whole Blood 188 mg/dL (75-99)
[2018-05-09] MEDS: HALOPERIDOL LACTATE 5 MG/ML 1 ML VIAL IVP PRN ×3 (18:19→22:42)
[2018-05-09 20:17] LABS: Glucose,Whole Blood 142 mg/dL (75-99)
[2018-05-09] MEDS ORDERED: FUROSEMIDE 10 MG/ML 4 ML VIAL IV STA (21:01)
[2018-05-09] MEDS: HYDROmorphone 1 MG/ML 1 ML SYRINGE IVP PRN ×2 (21:02→22:54)
[2018-05-10] MEDS: HYDROmorphone 1 MG/ML 1 ML SYRINGE IVP PRN ×3 (00:28→06:33)
[2018-05-10] MEDS: HALOPERIDOL LACTATE 5 MG/ML 1 ML VIAL IVP PRN ×6 (00:31→13:32)
[2018-05-10] MEDS: HYDROCORTISONE SUCCINATE 100 MG/2 ML VIAL IV SCH (01:00)
[2018-05-10 03:33] LABS: Calcium 9.2 mg/dL (8.4-10.2); Magnesium 2.5 mg/dL (1.6-2.3); Phosphorus 5.3 mg/dL (2.5-4.5)
[2018-05-10 04:09] LABS: Anisocytosis Slight; HCT 25.9 % (39.0-53.0); HGB 7.9 gm/dL (13.0-17.5); Hypochromasia Marked; MCH 27.2 pg (25.0-35.0); MCHC 30.7 g/dL (31.0-37.0); MCV 88.7 fL (80.0-100.0); Mean Platelet Volume 10.9; Platelet Count 228 k/uL (150-450); Poikilocytosis Slight; RBC 2.92 m/uL (4.30-5.90); RDW 18.8 % (11.5-15.5)
[2018-05-10] MEDS ORDERED: FUROSEMIDE 10 MG/ML 4 ML VIAL IV STA (05:38)
[2018-05-10] MEDS: AMIODARONE 450 MG in DEXTROSE 5% IN WATER 250 ML IV SCH ×6 (05:50→21:07)
[2018-05-10 06:47] LABS: Band Neutrophils % 5 %; Metamyelocytes # (M) 0.19 k/uL (0); Metamyelocytes % 2 %; Monocytes # (M) 0.19 k/uL (0-1.0); Myelocytes # (M) 0.38 k/uL (0); Myelocytes % 4 %; Neutrophils % (M) 80 %; Nucleated Red Blood Cells 1 /100 WBC (0-0); Total Cells Counted 200
[2018-05-10 07:02] LABS: Glucose,Whole Blood 156 mg/dL (75-99)
[2018-05-10] MEDS: INSULIN ASPART 100 UNIT/ML 1 ML 10 ML VIAL SQ SCH ×4 (07:06→21:03)
[2018-05-10 07:07] LABS: Lymphocytes # (M) 0.76 k/uL (1.0-4.8); WBC 9.5 k/uL (3.8-10.6)
[2018-05-10 07:08] LABS: Large Platelets Present; Polychromasia Present
--- NOTE | 2018-05-10 08:05 | XR ---
EXAMINATION TYPE: XR chest 1V DATE OF EXAM: 05/10/2018 HISTORY: Shortness of breath. COMPARISON: May 09, 2018 TECHNIQUE: Single view of the chest is submitted. FINDINGS: Endotracheal and NG tubes have been removed. Right IJ central venous line is unchanged in position. N o evidence for pneumothorax. Continued pulmonary venous congestion and small effusions. The heart is stable. Hilar and mediastinal structures are within normal limits. Degenerative changes are seen of the dorsal spine. Degenerative changes of the shoulders. IMPRESSION: 1. Continued pulmonary venous congestion and small effusions. Indwelling tubes and catheters as note d.
[2018-05-10] MEDS: IPRATROPIUM-ALBUTEROL 3 ML NEB INHALATION PRN ×3 (08:10→20:00)
[2018-05-10] MEDS: DEXTROSE 5% IN WATER 1,000 ML IV SCH ×2 (08:30→15:40)
--- NOTE | 2018-05-10 08:42 | P.PN ---
Subjective Progress Note Date: 05/10/18 Principal diagnosis: GI bleed, alcoholism, acute kidney injury Progress note dated 05/10/2018 This is a 77-year-old male, looks much older than his stated age, was admitted on May 04 for a GI bleed. The patient did have an EGD which was apparently negative for active bleeding. He also has a history of acute kidney injury low blood pressure and atrial fibrillation. He was X Dave 2 days ago. The patient 's currently on O2 at 4 L by nasal cannula. The patient's currently dextrose IV running at 80. It will be turned down to KVO. He is also on amiodarone at 0.5 mg/m. Since being here, the patient has received 6 units of PRBCs and 1 unit of fresh frozen plasma. CODE STATUS has not been addressed and should be addressed. Currently, the patient is a full code. The patient's very lethargic but does arouse. He mumbles words. Nothing is understandable. Apparently he's been this way since he was admitted and since he was extubated. Chest x-ray is consistent with mild fluid overload. Objective - Vital Signs Vital signs: Vital Signs Temp 97.8 F 05/10/18 08:00 Pulse 127 H 05/10/18 08:22 Resp 19 05/10/18 08:00 BP 118/84 05/09/18 12:00 Pulse Ox 97 05/10/18 08:00 Intake & Output 05/09/18 05/10/18 05/10/18 18:59 06:59 18:59 Intake Total 1243.064 982.788 166 Output Total 1156 2275 450 Balance 87.064 -1292.212 -284 Intake: IV 1022 593.5 166 Dextrose 5% in Water 1, 720 520 160 000 ml @ 80 mls/hr IV . [id number] [facility] Rx#:[id number] Piperacillin-Tazobactam 3 50 37.5 .375 gm In Dextrose/Water 1 50ml.bag @ 12.5 mls/hr IVPB Q8HR [facility] Rx#: [id number] Pressure Bag 27 36 6 Sodium Chloride 0.45% 1, 225 000 ml @ 75 mls/hr IV . [id number] [facility] Rx#:[id number] Intake, IV Titration 173.064 389.288 Amount Amiodarone 450 mg In 389.288 Dextrose 5% in Water 250 ml @ 1 MG/MIN 34.53 mls/ hr IV .[id number] [facility] Rx#: [id number] Dexmedetomidine/0.9% NaCl 150.708 (Pmx) 400 mcg In Empty Bag 1 bag @ Titrate IV . Q0M [facility] Rx#:[id number] Propofol 1,000 mg In 22.356 Empty Bag 1 bag @ Titrate IV .Q0M [facility] Rx#: [id number] Tube Feeding 48 Output: Urine 1156 2275 450 Other: Voiding Method Ileal Conduit (Right) Ileal Conduit (Right) # Bowel Movements 1 ABP, PAP, CO, CI - Last Documented Arterial Blood Pressure 142/68 - Exam No apparent distress, moaning and groaning, nasal O2 in place, the patient is very confused. HEENT examination is grossly unremarkable. Mucous membranes are moist. Neck supple. Full range of motion. No adenopathy thyromegaly or neck vein distention. Cardiovascular examination reveals regular rhythm rate. S1-S2 normal. No S3 or S4. No discernible murmur noted. Heart sounds are distant. Lungs reveal diminished breath sounds throughout. Some scattered bilateral rhonchi. No wheezes or crackles. Abdomen soft bowel sounds are heard. No masses or tenderness. Extremities are intact. No cyanosis clubbing or edema. Skin is without rash or lesion. Neurologic examination could not be adequately assessed. - Labs CBC & Chem 7: 05/10/18 03:15 05/10/18 03:16 Labs: Abnormal Lab Results - Last 24 Hours (Table) 05/09/18 05/09/18 05/09/18 Range/Units 12:09 17:04 20:15 RBC (4.30-5.90) m/uL Hgb (13.0-17.5) gm/dL Hct (39.0-53.0) % MCHC (31.0-37.0) g/dL RDW (11.5-15.5) % Neutrophils # (Manual) (1.3-7.7) k/uL Lymphocytes # (Manual) (1.0-4.8) k/uL Metamyelocytes # (Man) (0) k/uL Myelocytes # (Manual) (0) k/uL Nucleated RBCs (0-0) /100 WBC Sodium (137-145) mmol/L Chloride (98-107) mmol/L BUN (9-20) mg/dL Creatinine (0.66-1.25) mg/dL Glucose (74-99) mg/dL POC Glucose (mg/dL) 195 H 188 H 142 H (75-99) mg/dL Phosphorus (2.5-4.5) mg/dL Magnesium (1.6-2.3) mg/dL 05/09/18 05/10/18 05/10/18 Range/Units Unknown 03:15 03:16 RBC 2.92 L (4.30-5.90) m/uL Hgb 7.9 L (13.0-17.5) gm/dL Hct 25.9 L (39.0-53.0) % MCHC 30.7 L (31.0-37.0) g/dL RDW 18.8 H (11.5-15.5) % Neutrophils # (Manual) 8.00 H (1.3-7.7) k/uL Lymphocytes # (Manual) 0.76 L (1.0-4.8) k/uL Metamyelocytes # (Man) 0.19 H (0) k/uL Myelocytes # (Manual) 0.38 H (0) k/uL Nucleated RBCs 1 H (0-0) /100 WBC Sodium 148 H 147 H (137-145) mmol/L Chloride 119 H (98-107) mmol/L BUN 59 H (9-20) mg/dL Creatinine 1.90 H (0.66-1.25) mg/dL Glucose 138 H (74-99) mg/dL POC Glucose (mg/dL) (75-99) mg/dL Phosphorus 5.3 H (2.5-4.5) mg/dL Magnesium 2.5 H (1.6-2.3) mg/dL 05/10/18 Range/Units 07:01 RBC (4.30-5.90) m/uL Hgb (13.0-17.5) gm/dL Hct (39.0-53.0) % MCHC (31.0-37.0) g/dL RDW (11.5-15.5) % Neutrophils # (Manual) (1.3-7.7) k/uL Lymphocytes # (Manual) (1.0-4.8) k/uL Metamyelocytes # (Man) (0) k/uL Myelocytes # (Manual) (0) k/uL Nucleated RBCs (0-0) /100 WBC Sodium (137-145) mmol/L Chloride (98-107) mmol/L BUN (9-20) mg/dL Creatinine (0.66-1.25) mg/dL Glucose (74-99) mg/dL POC Glucose (mg/dL) 156 H (75-99) mg/dL Phosphorus (2.5-4.5) mg/dL Magnesium (1.6-2.3) mg/dL Microbiology - Last 24 Hours (Table) 05/04/18 19:40 Blood Culture - Preliminary Blood No Growth after 120 hours Assessment and Plan Assessment: Assessment Acute GI bleed, exacerbated by alcohol induced coagulopathy, with negative EGD Acute hypotension, resolved. Acute kidney injury Acute blood loss anemia Chronic atrial fibrillation Alcoholic liver disease induced coagulopathy History of bladder/prostate cancer Metabolic acidosis, resolved Coronary artery disease, status post previous myocardial infarction. Cardiomyopathy with an ejection fraction of 25-30% Mental status changes Ventilator-dependent respiratory failure, resolved E. coli urinary tract infection Plan: Plan dated 05/10/2018 Chest x-ray is consistent with ongoing pulmonary venous congestion and small bilateral pleural effusions. The IV was turned down to KVO. The patient's currently on O2 at 4 L by nasal cannula and continues on amiodarone at 0.5 mg/ m. The patient has received 6 units of PRBCs and 1 unit of fresh frozen plasma. CODE STATUS absolutely needs to be addressed. White count 9.5 hemoglobin 7.9 hematocrit 25.9 and platelet count 228,000. Sodium 147 potassium 4 chloride is 119 CO2 27 BUN and creatinine were 59 and 1.90. Overall prognosis is very poor and I will have a discussion with the family soon. Medication list is reviewed and unnecessary medications including long- acting nitroglycerin and others are discontinued. Critical care time 33 minutes Time with Patient: Greater than 30
[2018-05-10] MEDS: PIPERACILLIN-TAZOBACTAM 3.375 GM in DEXTROSE/WATER 1 50ML.BAG IVPB SCH ×3 (08:52→23:20)
[2018-05-10] MEDS: METOPROLOL TARTRATE 50 MG TAB PO SCH ×2 (08:58→09:24)
[2018-05-10] MEDS: PANTOPRAZOLE 40 MG/10 ML VIAL IV SCH ×2 (09:24→21:08)
--- NOTE | 2018-05-10 09:27 | P.PN ---
Subjective Progress Note Date: 05/10/18 Principal diagnosis: GI bleed, alcoholism, acute kidney injury Progress note dated 05/10/2018 This is a 77-year-old male, looks much older than his stated age, was admitted on May 04 for a GI bleed. The patient did have an EGD which was apparently negative for active bleeding. He also has a history of acute kidney injury low blood pressure and atrial fibrillation. He was X Dave 2 days ago. The patient 's currently on O2 at 4 L by nasal cannula. The patient's currently dextrose IV running at 80. It will be turned down to KVO. He is also on amiodarone at 0.5 mg/m. Since being here, the patient has received 6 units of PRBCs and 1 unit of fresh frozen plasma. CODE STATUS has not been addressed and should be addressed. Currently, the patient is a full code. The patient's very lethargic but does arouse. He mumbles words. Nothing is understandable. Apparently he's been this way since he was admitted and since he was extubated. Chest x-ray is consistent with mild fluid overload. I did have the opportunity to speak to the patient's daughter. She will talk to her brother and sister and make some decisions about CODE STATUS. She will get adequate dose later today. Objective - Vital Signs Vital signs: Vital Signs Temp 97.8 F 05/10/18 08:00 Pulse 127 H 05/10/18 08:22 Resp 19 05/10/18 08:00 BP 118/84 05/09/18 12:00 Pulse Ox 97 05/10/18 08:00 Intake & Output 05/09/18 05/10/18 05/10/18 18:59 06:59 18:59 Intake Total 1243.064 982.788 166 Output Total 1156 2275 450 Balance 87.064 -1292.212 -284 Intake: IV 1022 593.5 166 Dextrose 5% in Water 1, 720 520 160 000 ml @ 80 mls/hr IV . [id number] [facility] Rx#:[id number] Piperacillin-Tazobactam 3 50 37.5 .375 gm In Dextrose/Water 1 50ml.bag @ 12.5 mls/hr IVPB Q8HR [facility] Rx#: [id number] Pressure Bag 27 36 6 Sodium Chloride 0.45% 1, 225 000 ml @ 75 mls/hr IV . [id number] [facility] Rx#:[id number] Intake, IV Titration 173.064 389.288 Amount Amiodarone 450 mg In 389.288 Dextrose 5% in Water 250 ml @ 1 MG/MIN 34.53 mls/ hr IV .Q7H31M [facility] Rx#: [id number] Dexmedetomidine/0.9% NaCl 150.708 (Pmx) 400 mcg In Empty Bag 1 bag @ Titrate IV . Q0M [facility] Rx#:[id number] Propofol 1,000 mg In 22.356 Empty Bag 1 bag @ Titrate IV .Q0M [facility] Rx#: [id number] Tube Feeding 48 Output: Urine 1156 2275 450 Other: Voiding Method Ileal Conduit (Right) Ileal Conduit (Right) # Bowel Movements 1 ABP, PAP, CO, CI - Last Documented Arterial Blood Pressure 142/68 - Labs CBC & Chem 7: 05/10/18 03:15 05/10/18 03:16 Labs: Abnormal Lab Results - Last 24 Hours (Table) 05/09/18 05/09/18 05/09/18 Range/Units 12:09 17:04 20:15 RBC (4.30-5.90) m/uL Hgb (13.0-17.5) gm/dL Hct (39.0-53.0) % MCHC (31.0-37.0) g/dL RDW (11.5-15.5) % Neutrophils # (Manual) (1.3-7.7) k/uL Lymphocytes # (Manual) (1.0-4.8) k/uL Metamyelocytes # (Man) (0) k/uL Myelocytes # (Manual) (0) k/uL Nucleated RBCs (0-0) /100 WBC Sodium (137-145) mmol/L Chloride (98-107) mmol/L BUN (9-20) mg/dL Creatinine (0.66-1.25) mg/dL Glucose (74-99) mg/dL POC Glucose (mg/dL) 195 H 188 H 142 H (75-99) mg/dL Phosphorus (2.5-4.5) mg/dL Magnesium (1.6-2.3) mg/dL 05/09/18 05/10/18 05/10/18 Range/Units Unknown 03:15 03:16 RBC 2.92 L (4.30-5.90) m/uL Hgb 7.9 L (13.0-17.5) gm/dL Hct 25.9 L (39.0-53.0) % MCHC 30.7 L (31.0-37.0) g/dL RDW 18.8 H (11.5-15.5) % Neutrophils # (Manual) 8.00 H (1.3-7.7) k/uL Lymphocytes # (Manual) 0.76 L (1.0-4.8) k/uL Metamyelocytes # (Man) 0.19 H (0) k/uL Myelocytes # (Manual) 0.38 H (0) k/uL Nucleated RBCs 1 H (0-0) /100 WBC Sodium 148 H 147 H (137-145) mmol/L Chloride 119 H (98-107) mmol/L BUN 59 H (9-20) mg/dL Creatinine 1.90 H (0.66-1.25) mg/dL Glucose 138 H (74-99) mg/dL POC Glucose (mg/dL) (75-99) mg/dL Phosphorus 5.3 H (2.5-4.5) mg/dL Magnesium 2.5 H (1.6-2.3) mg/dL 05/10/18 Range/Units 07:01 RBC (4.30-5.90) m/uL Hgb (13.0-17.5) gm/dL Hct (39.0-53.0) % MCHC (31.0-37.0) g/dL RDW (11.5-15.5) % Neutrophils # (Manual) (1.3-7.7) k/uL Lymphocytes # (Manual) (1.0-4.8) k/uL Metamyelocytes # (Man) (0) k/uL Myelocytes # (Manual) (0) k/uL Nucleated RBCs (0-0) /100 WBC Sodium (137-145) mmol/L Chloride (98-107) mmol/L BUN (9-20) mg/dL Creatinine (0.66-1.25) mg/dL Glucose (74-99) mg/dL POC Glucose (mg/dL) 156 H (75-99) mg/dL Phosphorus (2.5-4.5) mg/dL Magnesium (1.6-2.3) mg/dL Microbiology - Last 24 Hours (Table) 05/04/18 19:40 Blood Culture - Preliminary Blood No Growth after 120 hours
[2018-05-10] MEDS: FLUCONAZOLE IN NACL,ISO-OSM 100 MG in SALINE 1 50ML.BAG IVPB SCH (09:31)
[2018-05-10] MEDS ORDERED: DEXTROSE 5% IN WATER 100 ML with AMIODARONE 150 MG IV ONE (10:14)
[2018-05-10 11:29] LABS: Glucose,Whole Blood 154 mg/dL (75-99)
[2018-05-10] MEDS: NITROGLYCERIN OINT 1 INCH/GM PACKET TOPICAL SCH ×3 (11:32→23:59)
[2018-05-10] MEDS ORDERED: METOPROLOL TARTRATE 5 MG/5 ML VIAL IVP SCH (12:00)
[2018-05-10] MEDS ORDERED: METOPROLOL TARTRATE 5 MG/5 ML VIAL IVP PRN (12:00)
--- NOTE | 2018-05-10 13:00 | FL ---
Modified barium swallow. HISTORY: Dysphagia. Modified barium swallow was performed with the department of speech pathology. The patient was prese nted with various consistencies of barium. There is evidence for aspiration with thin liquid barium. No additional barium was administered. Full report is to follow from the department of speech pathology. Impression: Jhony aspiration with thin liquid barium.
[2018-05-10] MEDS: ESMOLOL IN SODIUM CHLORIDE PMX 2.5 GM in SALINE 1 250ML.BAG IV SCH ×4 (13:06→22:22)
--- NOTE | 2018-05-10 14:21 | PN ---
PROGRESS NOTE This patient was admitted with severe GI bleed, low hemoglobin and acute respiratory distress. The patient is extubated however patient remains very agitated and requires frequent Haldol. The patient has a heart rate remains in the range of 130-140 even when the patient is quiet. Blood pressure is 141/76 mmHg. Oxygen saturation is 94%. First and second heart sounds are normal. Lungs examination reveals bilateral scattered wheezes. The chest x-ray is suggestive of mild congestive heart failure. Patient's creatinine is 1.9. The patient's urine output is fairly decent. In view of that, we will not give any IV Lasix. IMPRESSION: Atrial fibrillation with a rapid ventricular response in spite of patient being on IV amiodarone drip. The patient cannot take his low oral Lopressor. We will try the patient on IV esmolol. MMODL / IJN: [id number] /
--- NOTE | 2018-05-10 14:29 | P.PN ---
Subjective Patient is seen in follow-up for JUDY. Cr was 2.5 on admission and is down to 1.9 today. Creatinine in 2016 was 0.7. Patient presented with hemoglobin of 4.1 and has received multiple blood transfusions. He underwent EGD on May 07 which revealed duodenitis with duodenal bulb ulcers with no active bleeding. He is off all vasopressors. He is nonoliguric. Also being treated for E. coli UTI. He was extubated . Sodium level is down to 147 today. Currently on amiodaron and esmolol drip for a-fib. Failed swallow eval. Vital signs are stable. General: The patient appeared well nourished and normally developed. HEENT: Head exam is unremarkable. Neck is without jugular venous distension. LUNGS: Lungs are clear to auscultation and percussion. Breath sounds decreased. HEART: Irregular rate and rhythm. ABDOMEN: Abdominal exam reveals normal bowel sounds. Non-tender and non- distended. No evidence of peritonitis. EXTREMITITES: No clubbing, cyanosis, or edema. Objective - Vital Signs Vital signs: Vital Signs Temp 98.4 F 05/10/18 12:40 Pulse 130 H 05/10/18 13:00 Resp 14 05/10/18 13:00 BP 114/81 05/10/18 13:00 Pulse Ox 98 05/10/18 13:00 Intake & Output 05/09/18 05/10/18 05/10/18 18:59 06:59 18:59 Intake Total 1243.064 982.788 471.179 Output Total 1156 2275 1475 Balance 87.064 -1292.212 -1003.821 Weight 101.4 kg Intake: IV 1022 593.5 404.0 Dextrose 5% in Water 1, 720 520 280 000 ml @ 20 mls/hr IV . Q24H [facility] Rx#:[id number] Fluconazole in NaCl,Iso- 50 Osm 100 mg In Saline 1 50ml.bag @ 50 mls/hr IVPB DAILY [facility] Rx#:[id number] Piperacillin-Tazobactam 3 50 37.5 50.0 .375 gm In Dextrose/Water 1 50ml.bag @ 12.5 mls/hr IVPB Q8HR [facility] Rx#: [id number] Pressure Bag 27 36 24 Sodium Chloride 0.45% 1, 225 000 ml @ 75 mls/hr IV . [id number] [facility] Rx#:[id number] Intake, IV Titration 173.064 389.288 67.179 Amount Amiodarone 450 mg In 389.288 Dextrose 5% in Water 250 ml @ 1 MG/MIN 34.53 mls/ hr IV .Q7H31M [facility] Rx#: [id number] Dexmedetomidine/0.9% NaCl 150.708 (Pmx) 400 mcg In Empty Bag 1 bag @ Titrate IV . Q0M [facility] Rx#:[id number] Esmolol in Sodium 67.179 Chloride Pmx 2.5 gm In Saline 1 250ml.bag @ 25 MCG/KG/MIN 15.21 mls/hr IV .[id number] [facility] Rx#: [id number] Propofol 1,000 mg In 22.356 Empty Bag 1 bag @ Titrate IV .Q0M [facility] Rx#: [id number] Tube Feeding 48 Output: Urine 1156 2275 1475 Other: Voiding Method Ileal Conduit (Right) Ileal Conduit (Right) # Bowel Movements 1 ABP, PAP, CO, CI - Last Documented Arterial Blood Pressure 144/81 - Labs CBC & Chem 7: 05/10/18 03:15 05/10/18 03:16 Labs: Abnormal Lab Results - Last 24 Hours (Table) 05/09/18 05/09/18 05/09/18 Range/Units 17:04 20:15 Unknown RBC (4.30-5.90) m/uL Hgb (13.0-17.5) gm/dL Hct (39.0-53.0) % MCHC (31.0-37.0) g/dL RDW (11.5-15.5) % Neutrophils # (Manual) (1.3-7.7) k/uL Lymphocytes # (Manual) (1.0-4.8) k/uL Metamyelocytes # (Man) (0) k/uL Myelocytes # (Manual) (0) k/uL Nucleated RBCs (0-0) /100 WBC Sodium 148 H (137-145) mmol/L Chloride (98-107) mmol/L BUN (9-20) mg/dL Creatinine (0.66-1.25) mg/dL Glucose (74-99) mg/dL POC Glucose (mg/dL) 188 H 142 H (75-99) mg/dL Phosphorus (2.5-4.5) mg/dL Magnesium (1.6-2.3) mg/dL 05/10/18 05/10/18 05/10/18 Range/Units 03:15 03:16 07:01 RBC 2.92 L (4.30-5.90) m/uL Hgb 7.9 L (13.0-17.5) gm/dL Hct 25.9 L (39.0-53.0) % MCHC 30.7 L (31.0-37.0) g/dL RDW 18.8 H (11.5-15.5) % Neutrophils # (Manual) 8.00 H (1.3-7.7) k/uL Lymphocytes # (Manual) 0.76 L (1.0-4.8) k/uL Metamyelocytes # (Man) 0.19 H (0) k/uL Myelocytes # (Manual) 0.38 H (0) k/uL Nucleated RBCs 1 H (0-0) /100 WBC Sodium 147 H (137-145) mmol/L Chloride 119 H (98-107) mmol/L BUN 59 H (9-20) mg/dL Creatinine 1.90 H (0.66-1.25) mg/dL Glucose 138 H (74-99) mg/dL POC Glucose (mg/dL) 156 H (75-99) mg/dL Phosphorus 5.3 H (2.5-4.5) mg/dL Magnesium 2.5 H (1.6-2.3) mg/dL 05/10/18 Range/Units 11:28 RBC (4.30-5.90) m/uL Hgb (13.0-17.5) gm/dL Hct (39.0-53.0) % MCHC (31.0-37.0) g/dL RDW (11.5-15.5) % Neutrophils # (Manual) (1.3-7.7) k/uL Lymphocytes # (Manual) (1.0-4.8) k/uL Metamyelocytes # (Man) (0) k/uL Myelocytes # (Manual) (0) k/uL Nucleated RBCs (0-0) /100 WBC Sodium (137-145) mmol/L Chloride (98-107) mmol/L BUN (9-20) mg/dL Creatinine (0.66-1.25) mg/dL Glucose (74-99) mg/dL POC Glucose (mg/dL) 154 H (75-99) mg/dL Phosphorus (2.5-4.5) mg/dL Magnesium (1.6-2.3) mg/dL Microbiology - Last 24 Hours (Table) 05/04/18 19:40 Blood Culture - Preliminary Blood No Growth after 120 hours Assessment and Plan Plan: Assessment: 1. Nonoliguric acute kidney injury secondary to ATN secondary to acute anemia and hypotension. Creatinine was 2.5 on admission. It is 1.9 today. Noted to have bilateral hydronephrosis. 2. Acute anemia status post multiple blood transfusions this admission. Hemoglobin stable. Status post EGD on May 07 which revealed duodenitis with duodenal bulb ulcers without any active bleeding. 3. Hypernatremia secondary to lack of oral water intake. 4. Bilateral hydronephrosis. Evaluated by urology. No interventions planned at this time. 5. E. coli UTI maintained on antibiotics. 6. A-fib with RVR maintained on amiodarone and esmolol drip. Plan: Resume D5W at 50 cc/hr - this hypotonic solution will not worsen his respiratory status. Continue to monitor renal function and urine output. Avoid nephrotoxic agents and hypotensive episodes.
[2018-05-10] MEDS: PYRIDOXINE 50 MG TAB PO SCH (14:56)
[2018-05-10 17:48] LABS: Glucose,Whole Blood 149 mg/dL (75-99)
--- NOTE | 2018-05-10 18:33 | PN ---
PROGRESS NOTE DATE OF SERVICE: 05/09/2018 CHIEF COMPLAINT: Cardiogenic shock following upper GI bleed and blood loss anemia. HISTORY OF PRESENT ILLNESS: This gentleman has been extubated, but he remains lethargic, agitated and confused. PHYSICAL EXAMINATION: He remains pale. Blood pressure is good with a systolic running around 120. CHEST: Clear. Cardiac exam demonstrates atrial fibrillation. Abdomen is soft. Extremities are well perfused. IMPRESSION: 1. Encephalopathy following hypovolemic shock. 2. Upper gastrointestinal bleed. 3. Blood loss anemia. 4. Renal failure. PLAN: Continue supportive care. He is being followed by Nephrology as well. MMODL / IJN: [id number] /
--- NOTE | 2018-05-10 18:57 | PN ---
PROGRESS NOTE DATE OF SERVICE: 05/10/2018 CHIEF COMPLAINT: Encephalopathy following hypovolemic shock, upper GI bleed and anemia. HISTORY OF PRESENT ILLNESS: This gentleman remains agitated and confused. He does not seem to have any focal or lateralizing findings. PHYSICAL EXAMINATION: Breath sounds are heard on both sides. He is in atrial fibrillation with rapid ventricular response. The abdomen is soft, nontender. Extremities are normal. IMPRESSION: 1. Encephalopathy. 2. Status post cardiorespiratory arrest secondary to hypovolemic shock and anemia. 3. Blood loss anemia. 4. Atrial fibrillation. 5. Renal failure. PLAN: Continue supportive care until he is more awake and alert. MMODL / IJN: [id number] /
[2018-05-10] MEDS: DIGOXIN 250 MCG/ML 2 ML AMP IVP SCH (19:59)
[2018-05-10 21:01] LABS: Glucose,Whole Blood 167 mg/dL (75-99)
[2018-05-11] MEDS: DIGOXIN 250 MCG/ML 2 ML AMP IVP SCH ×2 (00:17→06:03)
[2018-05-11] MEDS: ESMOLOL IN SODIUM CHLORIDE PMX 2.5 GM in SALINE 1 250ML.BAG IV SCH ×3 (01:10→09:05)
[2018-05-11 05:07] LABS: Anisocytosis Slight; HCT 24.3 % (39.0-53.0); HGB 7.6 gm/dL (13.0-17.5); Hypochromasia Marked; MCH 27.8 pg (25.0-35.0); MCHC 31.3 g/dL (31.0-37.0); MCV 88.9 fL (80.0-100.0); Mean Platelet Volume 11.5; Platelet Count 169 k/uL (150-450); Poikilocytosis Slight; RBC 2.73 m/uL (4.30-5.90); RDW 18.5 % (11.5-15.5); WBC 6.5 k/uL (3.8-10.6)
[2018-05-11 05:15] LABS: Magnesium 2.3 mg/dL (1.6-2.3); Phosphorus 3.6 mg/dL (2.5-4.5); Potassium 3.8 mmol/L (3.5-5.1)
[2018-05-11] MEDS: AMIODARONE 450 MG in DEXTROSE 5% IN WATER 250 ML IV SCH ×6 (05:31→13:37)
[2018-05-11 05:39] LABS: Band Neutrophils % 1 %; Lymphocytes # (M) 0.46 k/uL (1.0-4.8); Monocytes # (M) 0.78 k/uL (0-1.0); Neutrophils % (M) 81 %; Nucleated Red Blood Cells 0 /100 WBC (0-0); Total Cells Counted 200
[2018-05-11 05:40] LABS: Large Platelets Present
[2018-05-11] MEDS: NITROGLYCERIN OINT 1 INCH/GM PACKET TOPICAL SCH ×3 (05:59→18:55)
[2018-05-11] MEDS: POTASSIUM CHLORIDE 10 MEQ in WATER FOR INJECTION 1 100ML.BAG IVPB SCH ×2 (06:03→07:19)
[2018-05-11 07:45] LABS: Glucose,Whole Blood 153 mg/dL (75-99)
--- NOTE | 2018-05-11 08:05 | XR ---
EXAMINATION TYPE: XR chest 1V portable DATE OF EXAM: 05/11/2018 CLINICAL HISTORY: Difficulty breathing progress study. TECHNIQUE: 2 AP portable semiupright views of the chest are obtained. COMPARISON: Chest x-ray from one day earlier FINDINGS: There is stable right internal jugular central venous catheter. There is persisting cardio megaly with mild central vascular congestion and likely small bilateral pleural effusions. No sizable pneumothorax is seen. Degenerative change both shoulders at the glenohumeral joint is noted. IMPRESSION: Overall stable findings, cardiomegaly with small bilateral pleural effusions and centra l vascular congestion all redemonstrated. Correlate for CHF exacerbation.
[2018-05-11] MEDS: PANTOPRAZOLE 40 MG/10 ML VIAL IV SCH ×2 (08:10→21:31)
[2018-05-11] MEDS: INSULIN ASPART 100 UNIT/ML 1 ML 10 ML VIAL SQ SCH ×4 (08:11→21:44)
[2018-05-11] MEDS: PIPERACILLIN-TAZOBACTAM 3.375 GM in DEXTROSE/WATER 1 50ML.BAG IVPB SCH (08:44)
--- NOTE | 2018-05-11 09:14 | P.PN ---
Subjective Progress Note Date: 05/11/18 Principal diagnosis: GI bleed, alcoholism, acute kidney injury Progress note dated 05/10/2018 This is a 77-year-old male, looks much older than his stated age, was admitted on May 04 for a GI bleed. The patient did have an EGD which was apparently negative for active bleeding. He also has a history of acute kidney injury low blood pressure and atrial fibrillation. He was X Dave 2 days ago. The patient 's currently on O2 at 4 L by nasal cannula. The patient's currently dextrose IV running at 80. It will be turned down to KVO. He is also on amiodarone at 0.5 mg/m. Since being here, the patient has received 6 units of PRBCs and 1 unit of fresh frozen plasma. CODE STATUS has not been addressed and should be addressed. Currently, the patient is a full code. The patient's very lethargic but does arouse. He mumbles words. Nothing is understandable. Apparently he's been this way since he was admitted and since he was extubated. Chest x-ray is consistent with mild fluid overload. I did have the opportunity to speak to the patient's daughter. She will talk to her brother and sister and make some decisions about CODE STATUS. She will get adequate dose later today. Progress note dated 05/11/2018 77-year-old male who actually looks much better today. He was admitted on May 04 for GI bleed. The patient did have an EGD which was negative for active bleeding. He also has a history of acute kidney injury, hypotension, and atrial fibrillation. The patient was extubated 2 days ago. Currently, the patient is on room air. The patient's IV is dextrose at 50 mL an hour he is currently on esmolol at 50 g and amiodarone at 1 mg. The patient declares to me that he would not want to be on life support. I did talk to the daughter about that. Currently he is in atrial fibrillation with a rate of 103. The patient looks much better today than he did yesterday. Chest x-rays consistent with fluid overload. He did fail his modified barium swallow yesterday but they 're coming back today to recheck him. He denies any pain or discomfort. Objective - Vital Signs Vital signs: Vital Signs Temp 97.7 F 05/11/18 08:00 Pulse 103 H 08/14/18 08:00 Resp 23 05/11/18 08:00 BP 112/76 05/10/18 17:00 Pulse Ox 97 05/11/18 08:00 Intake & Output 05/10/18 05/11/18 05/11/18 18:59 06:59 18:59 Intake Total 7862.823 5318.771 139.918 Output Total 1810 1175 225 Balance -446.941 663.771 -85.082 Weight 101.7 kg 101.9 kg Intake: IV 623.5 648.5 106 Dextrose 5% in Water 1, 450 600 100 000 ml @ 20 mls/hr IV . Q24H [facility] Rx#:[id number] Fluconazole in NaCl,Iso- 50 Osm 100 mg In Saline 1 50ml.bag @ 50 mls/hr IVPB DAILY [facility] Rx#:[id number] Piperacillin-Tazobactam 3 87.5 12.5 .375 gm In Dextrose/Water 1 50ml.bag @ 12.5 mls/hr IVPB Q8HR [facility] Rx#: [id number] Pressure Bag 36 36 6 Intake, IV Titration 255.745 9381.271 33.918 Amount Amiodarone 450 mg In 250 250 Dextrose 5% in Water 250 ml @ 1 MG/MIN 33.33 mls/ hr IV .Q7H31M [facility] Rx#: [id number] Esmolol in Sodium 489.559 940.271 33.918 Chloride Pmx 2.5 gm In Saline 1 250ml.bag @ 25 MCG/KG/MIN 15.21 mls/hr IV .[id number] [facility] Rx#: [id number] Output: Urine 1810 1175 225 Other: Voiding Method Ileal Conduit (Right) Ileal Conduit (Right) ABP, PAP, CO, CI - Last Documented Arterial Blood Pressure 152/66 - Exam No apparent distress, the patient is much more awake and alert today, oriented 3, not requiring supplemental oxygen. HEENT examination is grossly unremarkable. Mucous membranes are moist. Neck supple. Full range of motion. No adenopathy thyromegaly or neck vein distention. Cardiovascular examination reveals a irregular rhythm and rate. He is in atrial fibrillation at a rate of 103. S1-S2 normal. No heart murmur noted. Lungs reveal diminished breath sounds throughout. Some scattered bilateral rhonchi. No wheezes or crackles. Abdomen soft bowel sounds are heard. No masses or tenderness. Extremities are intact. No cyanosis clubbing or edema. Skin is without rash or lesion. Neurologic examination is brief but nonfocal. - Labs CBC & Chem 7: 05/11/18 04:55 05/11/18 04:55 Labs: Abnormal Lab Results - Last 24 Hours (Table) 05/10/18 05/10/18 05/10/18 Range/Units 11:28 17:47 21:00 RBC (4.30-5.90) m/uL Hgb (13.0-17.5) gm/dL Hct (39.0-53.0) % RDW (11.5-15.5) % Lymphocytes # (Manual) (1.0-4.8) k/uL Chloride (98-107) mmol/L BUN (9-20) mg/dL Creatinine (0.66-1.25) mg/dL Glucose (74-99) mg/dL POC Glucose (mg/dL) 154 H 149 H 167 H (75-99) mg/dL 05/11/18 05/11/18 05/11/18 Range/Units 04:55 04:55 07:44 RBC 2.73 L (4.30-5.90) m/uL Hgb 7.6 L (13.0-17.5) gm/dL Hct 24.3 L (39.0-53.0) % RDW 18.5 H (11.5-15.5) % Lymphocytes # (Manual) 0.46 L (1.0-4.8) k/uL Chloride 117 H (98-107) mmol/L BUN 50 H (9-20) mg/dL Creatinine 1.80 H (0.66-1.25) mg/dL Glucose 140 H (74-99) mg/dL POC Glucose (mg/dL) 153 H (75-99) mg/dL Microbiology - Last 24 Hours (Table) 05/04/18 19:40 Blood Culture - Final Blood No Growth after 144 hours Assessment and Plan Assessment: Assessment Acute GI bleed, exacerbated by alcohol induced coagulopathy, with negative EGD Acute hypotension, resolved. Acute kidney injury Acute blood loss anemia Chronic atrial fibrillation Alcoholic liver disease induced coagulopathy History of bladder/prostate cancer Metabolic acidosis, resolved Coronary artery disease, status post previous myocardial infarction. Cardiomyopathy with an ejection fraction of 25-30% Mental status changes Ventilator-dependent respiratory failure, resolved E. coli urinary tract infection Plan: Plan dated 05/10/2018 Chest x-ray is consistent with ongoing pulmonary venous congestion and small bilateral pleural effusions. The IV was turned down to KVO. The patient's currently on O2 at 4 L by nasal cannula and continues on amiodarone at 0.5 mg/ m. The patient has received 6 units of PRBCs and 1 unit of fresh frozen plasma. CODE STATUS absolutely needs to be addressed. White count 9.5 hemoglobin 7.9 hematocrit 25.9 and platelet count 228,000. Sodium 147 potassium 4 chloride is 119 CO2 27 BUN and creatinine were 59 and 1.90. Overall prognosis is very poor and I will have a discussion with the family soon. Medication list is reviewed and unnecessary medications including long- acting nitroglycerin and others are discontinued. Critical care time 33 minutes Chest x-rays consistent with pulmonary edema. The patient remains on esmolol and amiodarone. His mental status is improved dramatically. White count is 6.5 , hemoglobin 7.6, hematocrit 24.3 and platelet count was normal. Sodium and potassium normal, chloride 117, CO2 26, anion gap normal, BUN and creatinine were 50 and 1.80. Urine was positive for Escherichia coli which was sensitive to everything. Zosyn is discontinued and Levaquin is started. Unnecessary medications will be discontinued. Critical care time 34 minutes Time with Patient: Greater than 30
[2018-05-11] MEDS: IPRATROPIUM-ALBUTEROL 3 ML NEB INHALATION PRN (09:25)
[2018-05-11] MEDS ORDERED: LEVOFLOXACIN 500MG-D5W PMX 500 MG in DEXTROSE/WATER 1 100ML.BAG IVPB SCH (10:00)
[2018-05-11] MEDS ORDERED: LEVOFLOXACIN 500 MG TAB PO SCH (10:00)
--- NOTE | 2018-05-11 11:05 | P.PN ---
Subjective Patient is seen in follow-up for JUDY. Cr was 2.5 on admission and is down to 1.8 today. Creatinine in 2016 was 0.7. Patient presented with hemoglobin of 4.1 and has received multiple blood transfusions. He underwent EGD on May 07 which revealed duodenitis with duodenal bulb ulcers with no active bleeding. He is off all vasopressors. He is nonoliguric. Also being treated for E. coli UTI. Sodium level is down to 145 today. Currently on amiodaron and esmolol drip for a-fib. Failed swallow eval. Vital signs are stable. General: The patient appeared well nourished and normally developed. HEENT: Head exam is unremarkable. Neck is without jugular venous distension. LUNGS: Lungs are clear to auscultation and percussion. Breath sounds decreased. HEART: Irregular rate and rhythm. ABDOMEN: Abdominal exam reveals normal bowel sounds. Non-tender and non- distended. No evidence of peritonitis. EXTREMITITES: No clubbing, cyanosis, or edema. Objective - Vital Signs Vital signs: Vital Signs Temp 97.7 F 05/11/18 08:00 Pulse 103 H 05/11/18 10:00 Resp 12 05/11/18 10:00 BP 133/85 05/11/18 09:00 Pulse Ox 96 05/11/18 10:00 Intake & Output 05/10/18 05/11/18 05/11/18 18:59 06:59 18:59 Intake Total 4310.325 8149.771 341.170 Output Total 1810 1175 450 Balance -446.941 663.771 -108.830 Weight 101.7 kg 101.9 kg Intake: IV 623.5 648.5 249.5 Dextrose 5% in Water 1, 450 600 200 000 ml @ 20 mls/hr IV . Q24H [facility] Rx#:[id number] Fluconazole in NaCl,Iso- 50 Osm 100 mg In Saline 1 50ml.bag @ 50 mls/hr IVPB DAILY [facility] Rx#:[id number] Piperacillin-Tazobactam 3 87.5 12.5 37.5 .375 gm In Dextrose/Water 1 50ml.bag @ 12.5 mls/hr IVPB Q8HR [facility] Rx#: [id number] Pressure Bag 36 36 12 Intake, IV Titration 788.565 2811.271 91.670 Amount Amiodarone 450 mg In 250 250 Dextrose 5% in Water 250 ml @ 1 MG/MIN 33.33 mls/ hr IV .Q7H31M [facility] Rx#: [id number] Esmolol in Sodium 489.559 940.271 91.670 Chloride Pmx 2.5 gm In Saline 1 250ml.bag @ 25 MCG/KG/MIN 15.21 mls/hr IV .[id number] [facility] Rx#: [id number] Output: Urine 1810 1175 450 Other: Voiding Method Ileal Conduit (Right) Ileal Conduit (Right) ABP, PAP, CO, CI - Last Documented Arterial Blood Pressure 145/70 - Labs CBC & Chem 7: 05/11/18 04:55 05/11/18 04:55 Labs: Abnormal Lab Results - Last 24 Hours (Table) 05/10/18 05/10/18 05/10/18 Range/Units 11:28 17:47 21:00 RBC (4.30-5.90) m/uL Hgb (13.0-17.5) gm/dL Hct (39.0-53.0) % RDW (11.5-15.5) % Lymphocytes # (Manual) (1.0-4.8) k/uL Chloride (98-107) mmol/L BUN (9-20) mg/dL Creatinine (0.66-1.25) mg/dL Glucose (74-99) mg/dL POC Glucose (mg/dL) 154 H 149 H 167 H (75-99) mg/dL 05/11/18 05/11/18 05/11/18 Range/Units 04:55 04:55 07:44 RBC 2.73 L (4.30-5.90) m/uL Hgb 7.6 L (13.0-17.5) gm/dL Hct 24.3 L (39.0-53.0) % RDW 18.5 H (11.5-15.5) % Lymphocytes # (Manual) 0.46 L (1.0-4.8) k/uL Chloride 117 H (98-107) mmol/L BUN 50 H (9-20) mg/dL Creatinine 1.80 H (0.66-1.25) mg/dL Glucose 140 H (74-99) mg/dL POC Glucose (mg/dL) 153 H (75-99) mg/dL Microbiology - Last 24 Hours (Table) 05/04/18 19:40 Blood Culture - Final Blood No Growth after 144 hours Assessment and Plan Plan: Assessment: 1. Nonoliguric acute kidney injury secondary to ATN secondary to acute anemia and hypotension. Creatinine was 2.5 on admission. It is 1.8 today. Noted to have bilateral hydronephrosis. 2. Acute anemia status post multiple blood transfusions this admission. Hemoglobin stable. Status post EGD on May 07 which revealed duodenitis with duodenal bulb ulcers without any active bleeding. 3. Hypernatremia secondary to lack of oral water intake. 4. Bilateral hydronephrosis. Evaluated by urology. No interventions planned at this time. 5. E. coli UTI maintained on antibiotics. 6. A-fib with RVR maintained on amiodarone and esmolol drip. Plan: Resume D5W at 50 cc/hr - this hypotonic solution will not worsen his respiratory status. Will heplock once able to tolerate PO intake. Continue to monitor renal function and urine output. Avoid nephrotoxic agents and hypotensive episodes.
[2018-05-11 11:24] LABS: Glucose,Whole Blood 143 mg/dL (75-99)
--- NOTE | 2018-05-11 12:29 | FL ---
EXAMINATION TYPE: FL barium swallow w video DATE OF EXAM: 05/11/2018 MODIFIED SWALLOW / DEGLUTITION STUDY CLINICAL HISTORY: Dysphagia. TECHNIQUE: Deglutition study is performed utilizing thin liquid barium, honey and nectar thick liqui d barium, barium thick applesauce, and barium coated cracker. A total of 2 minutes 42 seconds of fluo roscopic time was utilized during procedure. Approximately 15 cine sequences were acquired. 0 images are saved to PACS. COMPARISON: None. FINDINGS: The oral and pharyngeal phases show satisfactory initiation and propagation with all modali ties tested. Satisfactory mastication is seen with solid modalities tested. There is silent aspirati on with thin liquid barium and nectar thick liquid barium which does not initiate cough reflex. More viscous modalities show no penetration or aspiration. Moderate pharyngeal residue was appreciated wit h more viscous modalities. IMPRESSION: Silent aspiration with thin liquid barium and nectar thick liquid barium. Please refer t o speech therapist notes for further details if necessary.
[2018-05-11] MEDS: METOPROLOL TARTRATE 50 MG TAB PO STA ×2 (13:18→13:19)
--- NOTE | 2018-05-11 13:25 | PN ---
PROGRESS NOTE This patient is admitted with a GI bleeding. The patient has a history of atrial fibrillation with rapid ventricular response. Patient's heart rate was significantly high yesterday and patient was started on esmolol drip as well as amiodarone drip and received Lanoxin. Subsequently patient's heart rate is stabilized in the range of 100. Patient's esmolol drip is now down to 25 mcg/kg. Heart rate is 100 per minute. First and second heart sounds are normal. Lungs are fairly clear to auscultation and percussion. Patient's swallow test was negative. Patient is going to be started on the fluids today. Once the patient starts taking oral liquids we will resume the patient's oral Lopressor. Continue IV amiodarone drip and esmolol will be discontinued. MMODL / IJN: [id number] /
[2018-05-11] MEDS: DEXTROSE 5% IN WATER 1,000 ML IV SCH (16:02)
[2018-05-11] MEDS: PYRIDOXINE 50 MG TAB PO SCH (16:02)
[2018-05-11 17:27] LABS: Glucose,Whole Blood 148 mg/dL (75-99)
--- NOTE | 2018-05-11 18:07 | PN ---
PROGRESS NOTE DATE OF SURGERY: 05/11/2018 CHIEF COMPLAINT: Cardiac arrest following hypovolemic shock and upper GI bleeding. HISTORY OF PRESENT ILLNESS: This gentleman is improving. His mentation is improving and he is much more coherent. PHYSICAL EXAMINATION: He has occasional rhonchi bilaterally. The atrial fibrillation continues. Abdomen is soft and nontender. IMPRESSION: 1. Cardiorespiratory arrest after hypovolemic shock secondary to gastrointestinal bleeding. 2. Blood loss anemia. 3. Anoxic encephalopathy, improving. 4. Renal failure, improving. 5. Atrial fibrillation. PLAN: He may be able to be moved to telemetry today. Discharge planning will probably include rehabilitation. MMODL / IJN: [id number] /
[2018-05-11] MEDS: ONDANSETRON 4 MG/2 ML VIAL IVP PRN (21:13)
[2018-05-11] MEDS: METOPROLOL TARTRATE 50 MG TAB PO SCH (21:35)
[2018-05-11 21:43] LABS: Glucose,Whole Blood 165 mg/dL (75-99)
[2018-05-12] MEDS: NITROGLYCERIN OINT 1 INCH/GM PACKET TOPICAL SCH ×4 (01:09→18:49)
[2018-05-12] MEDS: ONDANSETRON 4 MG/2 ML VIAL IVP PRN ×3 (03:05→18:49)
[2018-05-12] MEDS: AMIODARONE 450 MG in DEXTROSE 5% IN WATER 250 ML IV SCH ×8 (03:07→15:08)
[2018-05-12 04:52] LABS: Calcium 9.5 mg/dL (8.4-10.2); Magnesium 2.3 mg/dL (1.6-2.3); Phosphorus 3.6 mg/dL (2.5-4.5); Potassium 3.9 mmol/L (3.5-5.1)
[2018-05-12 06:28] LABS: Glucose,Whole Blood 140 mg/dL (75-99)
[2018-05-12] MEDS: INSULIN ASPART 100 UNIT/ML 1 ML 10 ML VIAL SQ SCH ×4 (06:34→22:04)
[2018-05-12] MEDS: DEXTROSE 5% IN WATER 1,000 ML IV SCH (06:35)
[2018-05-12] MEDS: FLUCONAZOLE IN NACL,ISO-OSM 100 MG in SALINE 1 50ML.BAG IVPB SCH (08:21)
[2018-05-12] MEDS: HYDROCORTISONE SUCCINATE 100 MG/2 ML VIAL IV SCH (08:24)
[2018-05-12] MEDS ORDERED: PANTOPRAZOLE 40 MG TABLET PO SCH (09:00)
[2018-05-12] MEDS: LEVOFLOXACIN 250MG-D5W PMX 250 MG in DEXTROSE/WATER 1 50ML.BAG IVPB SCH (09:14)
--- NOTE | 2018-05-12 09:29 | P.PN ---
Subjective Patient is seen in follow-up for JUDY. Cr was 2.5 on admission and is down to 1.64 today. Creatinine in 2016 was 0.7. Patient presented with hemoglobin of 4.1 and has received multiple blood transfusions. He underwent EGD on May 07 which revealed duodenitis with duodenal bulb ulcers with no active bleeding. He is off all vasopressors. He is nonoliguric. Also being treated for E. coli UTI. Sodium level 147 today. Currently on amiodarone drip for a-fib. Currently on nectar thick diet. Vital signs are stable. General: The patient appeared well nourished and normally developed. HEENT: Head exam is unremarkable. Neck is without jugular venous distension. LUNGS: Lungs are clear to auscultation and percussion. Breath sounds decreased. HEART: Irregular rate and rhythm. ABDOMEN: Abdominal exam reveals normal bowel sounds. Non-tender and non- distended. No evidence of peritonitis. EXTREMITITES: No clubbing, cyanosis, or edema. Objective - Vital Signs Vital signs: Vital Signs Temp 97.5 F L 05/12/18 08:45 Pulse 96 05/12/18 08:43 Resp 21 05/12/18 08:43 BP 116/62 05/12/18 08:43 Pulse Ox 92 L 05/12/18 08:43 Intake & Output 05/11/18 05/12/18 05/12/18 18:59 06:59 18:59 Intake Total 1069.097 5886 Output Total 1245 735 Balance 75.694 446 Weight 102.5 kg Intake: IV 683.0 571 Dextrose 5% in Water 1, 400 550 000 ml @ 20 mls/hr IV . Q24H [facility] Rx#:[id number] Levofloxacin 500Mg-D5w 200 Pmx 500 mg In Dextrose/ Water 1 100ml.bag @ 100 mls/hr IVPB Q24H [facility] Rx#: [id number] Piperacillin-Tazobactam 3 50.0 .375 gm In Dextrose/Water 1 50ml.bag @ 12.5 mls/hr IVPB Q8HR [facility] Rx#: [id number] Pressure Bag 33 21 Intake, IV Titration 397.694 250 Amount Amiodarone 450 mg In 250 Dextrose 5% in Water 250 ml @ 1 MG/MIN 33.33 mls/ hr IV .Q7H31M [facility] Rx#: [id number] Amiodarone 450 mg In 250 Dextrose 5% in Water 250 ml @ 1 MG/MIN 33.33 mls/ hr IV .Q7H31M [facility] Rx#: [id number] Esmolol in Sodium 147.694 Chloride Pmx 2.5 gm In Saline 1 250ml.bag @ 25 MCG/KG/MIN 15.21 mls/hr IV .[id number] [facility] Rx#: [id number] Oral 240 360 Output: Urine 1245 735 Other: Voiding Method Ileal Conduit (Right) Ileal Conduit (Right) Ileal Conduit ( Right) ABP, PAP, CO, CI - Last Documented Arterial Blood Pressure 137/47 - Labs CBC & Chem 7: 05/11/18 04:55 05/12/18 04:36 Labs: Abnormal Lab Results - Last 24 Hours (Table) 05/11/18 05/11/18 05/11/18 Range/Units 11:22 17:25 21:40 Sodium (137-145) mmol/L Chloride (98-107) mmol/L BUN (9-20) mg/dL Creatinine (0.66-1.25) mg/dL Glucose (74-99) mg/dL POC Glucose (mg/dL) 143 H 148 H 165 H (75-99) mg/dL 05/12/18 05/12/18 Range/Units 04:36 06:26 Sodium 147 H (137-145) mmol/L Chloride 117 H (98-107) mmol/L BUN 37 H (9-20) mg/dL Creatinine 1.64 H (0.66-1.25) mg/dL Glucose 134 H (74-99) mg/dL POC Glucose (mg/dL) 140 H (75-99) mg/dL Assessment and Plan Plan: Assessment: 1. Nonoliguric acute kidney injury secondary to ATN secondary to acute anemia and hypotension. Creatinine was 2.5 on admission. It is 1.64 today. Noted to have bilateral hydronephrosis. 2. Acute anemia status post multiple blood transfusions this admission. Hemoglobin stable. Status post EGD on May 07 which revealed duodenitis with duodenal bulb ulcers without any active bleeding. 3. Hypernatremia secondary to lack of oral water intake. 4. Bilateral hydronephrosis. Evaluated by urology. No interventions planned at this time. 5. E. coli UTI maintained on antibiotics. 6. A-fib with RVR maintained on amiodarone drip. Plan: Continue D5W at 50 cc/hr - this hypotonic solution will not worsen his respiratory status. Continue to monitor renal function and urine output. Avoid nephrotoxic agents and hypotensive episodes.
[2018-05-12] MEDS: METOPROLOL TARTRATE 50 MG TAB PO SCH ×3 (09:35→22:05)
--- NOTE | 2018-05-12 10:53 | P.PN ---
Subjective Progress Note Date: 05/12/18 Principal diagnosis: Acute GI bleed, alcoholic coagulopathy, acute hypotension, resolved This is a 77-year-old male, looks much older than his stated age, was admitted on May 04 for a GI bleed. The patient did have an EGD which was apparently negative for active bleeding. He also has a history of acute kidney injury low blood pressure and atrial fibrillation. He was X Dave 2 days ago. The patient 's currently on O2 at 4 L by nasal cannula. The patient's currently dextrose IV running at 80. It will be turned down to KVO. He is also on amiodarone at 0.5 mg/m. Since being here, the patient has received 6 units of PRBCs and 1 unit of fresh frozen plasma. CODE STATUS has not been addressed and should be addressed. Currently, the patient is a full code. The patient's very lethargic but does arouse. He mumbles words. Nothing is understandable. Apparently he's been this way since he was admitted and since he was extubated. Chest x-ray is consistent with mild fluid overload. I did have the opportunity to speak to the patient's daughter. She will talk to her brother and sister and make some decisions about CODE STATUS. She will get adequate dose later today. Progress note dated 05/11/2018 77-year-old male who actually looks much better today. He was admitted on May 04 for GI bleed. The patient did have an EGD which was negative for active bleeding. He also has a history of acute kidney injury, hypotension, and atrial fibrillation. The patient was extubated 2 days ago. Currently, the patient is on room air. The patient's IV is dextrose at 50 mL an hour he is currently on esmolol at 50 g and amiodarone at 1 mg. The patient declares to me that he would not want to be on life support. I did talk to the daughter about that. Currently he is in atrial fibrillation with a rate of 103. The patient looks much better today than he did yesterday. Chest x-rays consistent with fluid overload. He did fail his modified barium swallow yesterday but they 're coming back today to recheck him. He denies any pain or discomfort. On 05/12/2018 patient seen in follow-up on selective care unit. He is awake and alert, yesterday he had a repeat modified barium swallow and he was noted to be aspirating. Honey thick liquids and modified diet were recommended per speech therapy. He had a episode of vomiting this morning. he denies any abdominal discomfort. No diarrhea. No fever, no chills, hemodynamically stable , room air pulse ox is 92%. Chest x-ray today, labs were reviewed, patient remains hypernatremic, which is slightly worse today, sodium is up to 147, chloride is 117, renal profile is improving, BUN is down to 37, creatinine is 1.64. Maintenance IV fluids his D5W at a rate of 75 ML per hour. Yesterday's hemoglobin was 7.6, and there has been no recurrence of GI bleeding. Lung sounds are positive for some diffuse wheezes, he remains on Levaquin for E. coli urinary. Objective - Vital Signs Vital signs: Vital Signs Temp 97.5 F L 05/12/18 08:45 Pulse 96 05/12/18 08:43 Resp 21 05/12/18 08:43 BP 116/62 05/12/18 08:43 Pulse Ox 92 L 05/12/18 08:43 Intake & Output 05/11/18 05/12/18 05/12/18 18:59 06:59 18:59 Intake Total 8006.948 3782 Output Total 1245 735 Balance 75.694 446 Weight 102.5 kg Intake: IV 683.0 571 Dextrose 5% in Water 1, 400 550 000 ml @ 20 mls/hr IV . Q24H [facility] Rx#:[id number] Levofloxacin 500Mg-D5w 200 Pmx 500 mg In Dextrose/ Water 1 100ml.bag @ 100 mls/hr IVPB Q24H [facility] Rx#: [id number] Piperacillin-Tazobactam 3 50.0 .375 gm In Dextrose/Water 1 50ml.bag @ 12.5 mls/hr IVPB Q8HR [facility] Rx#: [id number] Pressure Bag 33 21 Intake, IV Titration 397.694 250 Amount Amiodarone 450 mg In 250 Dextrose 5% in Water 250 ml @ 1 MG/MIN 33.33 mls/ hr IV .Q7H31M [facility] Rx#: [id number] Amiodarone 450 mg In 250 Dextrose 5% in Water 250 ml @ 1 MG/MIN 33.33 mls/ hr IV .Q7H31M [facility] Rx#: [id number] Esmolol in Sodium 147.694 Chloride Pmx 2.5 gm In Saline 1 250ml.bag @ 25 MCG/KG/MIN 15.21 mls/hr IV .[id number] [facility] Rx#: [id number] Oral 240 360 Output: Urine 1245 735 Other: Voiding Method Ileal Conduit (Right) Ileal Conduit (Right) Ileal Conduit ( Right) ABP, PAP, CO, CI - Last Documented Arterial Blood Pressure 137/47 - Exam No apparent distress, the patient is much more awake and alert today, oriented 3, not requiring supplemental oxygen. HEENT examination is grossly unremarkable. Mucous membranes are moist. Neck supple. Full range of motion. No adenopathy thyromegaly or neck vein distention. Cardiovascular examination reveals a irregular rhythm and rate. He is in atrial fibrillation at a rate of 103. S1-S2 normal. No heart murmur noted. Lungs reveal diminished breath sounds throughout. Some scattered bilateral rhonchi. No wheezes or crackles. Abdomen soft bowel sounds are heard. No masses or tenderness. Extremities are intact. No cyanosis clubbing or edema. Skin is without rash or lesion. Neurologic examination is brief but nonfocal. - Labs CBC & Chem 7: 05/11/18 04:55 05/12/18 04:36 Labs: Abnormal Lab Results - Last 24 Hours (Table) 05/11/18 05/11/18 05/11/18 Range/Units 11:22 17:25 21:40 Sodium (137-145) mmol/L Chloride (98-107) mmol/L BUN (9-20) mg/dL Creatinine (0.66-1.25) mg/dL Glucose (74-99) mg/dL POC Glucose (mg/dL) 143 H 148 H 165 H (75-99) mg/dL 05/12/18 05/12/18 Range/Units 04:36 06:26 Sodium 147 H (137-145) mmol/L Chloride 117 H (98-107) mmol/L BUN 37 H (9-20) mg/dL Creatinine 1.64 H (0.66-1.25) mg/dL Glucose 134 H (74-99) mg/dL POC Glucose (mg/dL) 140 H (75-99) mg/dL Assessment and Plan Plan: Assessment: #1. Acute blood loss anemia, secondary to GI bleeding #2. Hypotension, weakness, falls, black tarry stools related to the above #3. Altered mentation, likely related to hypovolemia, and possibly related to sepsis #4. Leukocytosis, rule out sepsis #5. Coumadin induced coagulopathy #6. Chronic atrial fibrillation, on chronic anticoagulation #7. Acute kidney injury related to acute blood loss anemia and hypotension #8. Lactic acidosis, rule out sepsis #9. History of bladder and prostate cancer, status post urostomy placement #10. Previous history of myocardial infarction #11. Dysphasia #12. E. coli urinary tract infection Plan: Continue current medical treatment, continue with dietary recommendations per speech therapy, patient was noted to aspirate during his modified barium swallow. Maintain aspiration precautions. No recurrence of GI bleeding, hemodynamically stable, continue D5W at the current rate, continue current antibiotic coverage for the E. coli pneumonia, breathing and coughing. We'll continue to follow. I performed a history & physical examination of the patient and discussed their management with my nurse practitioner, Reyna Greenwood. I reviewed the nurse practitioner's note and agree with the documented findings and plan of care. Lung sounds are positive for coarse breath sounds. The findings and the impression was discussed with the patient. I attest to the documentation by the nurse practitioner. Time with Patient: Less than 30
[2018-05-12] MEDS ORDERED: PROCHLORPERAZINE 10 MG TAB PO PRN (11:57)
[2018-05-12] MEDS ORDERED: METOCLOPRAMIDE 5 MG/ML 2 ML VIAL IVP PRN (11:59)
[2018-05-12] MEDS ORDERED: METOCLOPRAMIDE 5 MG/ML 2 ML VIAL IVP SCH (12:00)
[2018-05-12 12:07] LABS: Glucose,Whole Blood 140 mg/dL (75-99)
--- NOTE | 2018-05-12 12:52 | P.PN ---
Progress Note - Text Progress Note Date: 05/12/18 pateint had acute metabolic encephlopathy upon presntation
--- NOTE | 2018-05-12 15:38 | P.PN ---
Subjective Progress Note Date: 05/12/18 This is a 77-year-old male, looks much older than his stated age, was admitted on May 04 for a GI bleed. The patient did have an EGD which was apparently negative for active bleeding. He also has a history of acute kidney injury low blood pressure and atrial fibrillation. Patient continues to be in atrial fibrillation today the heart rate is in the 80s. He continues to be on amiodarone. Patient had several episodes today of vomiting, he is very nauseated. We do not feel this is secondary to the amiodarone. Our recommendations at this time are to continue with the amiodarone. Blood pressure 122/70, heart rate in the 80s, afebrile, 90% on room air. The patient did have a repeat modified barium swallow and he was noted to be aspirating. IV continues at 75 mL per hour. No recurrent GI bleeding. Objective - Vital Signs Vital signs: Vital Signs Temp 97.2 F L 05/12/18 11:47 Pulse 86 05/12/18 11:47 Resp 18 05/12/18 11:47 BP 123/74 05/12/18 11:47 Pulse Ox 90 L 05/12/18 11:47 Intake & Output 05/11/18 05/12/18 05/12/18 18:59 06:59 18:59 Intake Total 6053.244 4451 650 Output Total 1245 735 350 Balance 75.694 446 300 Weight 102.5 kg 102.5 kg Intake: IV 683.0 571 Dextrose 5% in Water 1, 400 550 000 ml @ 20 mls/hr IV . Q24H [facility] Rx#:[id number] Levofloxacin 500Mg-D5w 200 Pmx 500 mg In Dextrose/ Water 1 100ml.bag @ 100 mls/hr IVPB Q24H [facility] Rx#: [id number] Piperacillin-Tazobactam 3 50.0 .375 gm In Dextrose/Water 1 50ml.bag @ 12.5 mls/hr IVPB Q8HR [facility] Rx#: [id number] Pressure Bag 33 21 Intake, IV Titration 397.694 250 650 Amount Amiodarone 450 mg In 250 Dextrose 5% in Water 250 ml @ 1 MG/MIN 33.33 mls/ hr IV .Q7H31M [facility] Rx#: [id number] Amiodarone 450 mg In 250 250 Dextrose 5% in Water 250 ml @ 1 MG/MIN 33.33 mls/ hr IV .Q7H31M [facility] Rx#: [id number] Dextrose 5% in Water 1, 400 000 ml @ 50 mls/hr IV . Q20H [facility] Rx#:[id number] Esmolol in Sodium 147.694 Chloride Pmx 2.5 gm In Saline 1 250ml.bag @ 25 MCG/KG/MIN 15.21 mls/hr IV .[id number] [facility] Rx#: [id number] Oral 240 360 Output: Urine 1245 735 350 Other: Voiding Method Ileal Conduit (Right) Ileal Conduit (Right) Ileal Conduit ( Right) ABP, PAP, CO, CI - Last Documented Arterial Blood Pressure 137/47 - Exam No apparent distress, the patient is much more awake and alert today, oriented 3, not requiring supplemental oxygen. HEENT examination is grossly unremarkable. Mucous membranes are moist. Neck supple. Full range of motion. No adenopathy thyromegaly or neck vein distention. Cardiovascular examination reveals a irregular rhythm and rate. He is in atrial fibrillation at a rate of 80. S1-S2 normal. No heart murmur noted. Lungs reveal diminished breath sounds throughout. Some scattered bilateral rhonchi. No wheezes or crackles. Abdomen soft bowel sounds are heard. No masses or tenderness. Extremities are intact. No cyanosis clubbing or edema. Skin is without rash or lesion. Neurologic examination is brief but nonfocal. - Labs CBC & Chem 7: 05/11/18 04:55 05/12/18 04:36 Labs: Abnormal Lab Results - Last 24 Hours (Table) 05/11/18 05/11/18 05/12/18 Range/Units 17:25 21:40 04:36 Sodium 147 H (137-145) mmol/L Chloride 117 H (98-107) mmol/L BUN 37 H (9-20) mg/dL Creatinine 1.64 H (0.66-1.25) mg/dL Glucose 134 H (74-99) mg/dL POC Glucose (mg/dL) 148 H 165 H (75-99) mg/dL 05/12/18 05/12/18 Range/Units 06:26 12:01 Sodium (137-145) mmol/L Chloride (98-107) mmol/L BUN (9-20) mg/dL Creatinine (0.66-1.25) mg/dL Glucose (74-99) mg/dL POC Glucose (mg/dL) 140 H 140 H (75-99) mg/dL Assessment and Plan Plan: Assessment: #1. Acute blood loss anemia, secondary to GI bleeding #2. Hypotension, weakness, falls, black tarry stools related to the above #3. Altered mentation, likely related to hypovolemia, and possibly related to sepsis #4. Leukocytosis, rule out sepsis #5. Coumadin induced coagulopathy #6. Chronic atrial fibrillation, on chronic anticoagulation, on IV amiodarone #7. Acute kidney injury related to acute blood loss anemia and hypotension #8. Lactic acidosis, rule out sepsis #9. History of bladder and prostate cancer, status post urostomy placement #10. Previous history of myocardial infarction #11. Dysphasia #12. E. coli urinary tract infection Plan: From cardiology's perspective, we'll recommend to continue the patient on IV amiodarone drip. We will continue to follow. DNP note has been reviewed, I agree with a documented findings and plan of care. Patient was seen and examined.
[2018-05-12] MEDS: IPRATROPIUM-ALBUTEROL 3 ML NEB INHALATION PRN ×2 (15:53→20:24)
[2018-05-12 16:56] LABS: Glucose,Whole Blood 146 mg/dL (75-99)
[2018-05-12] MEDS: PYRIDOXINE 50 MG TAB PO SCH (18:21)
[2018-05-12 18:28] LABS: Anisocytosis Slight; Basophils % (A) 0 %; Eosinophils % (A) 0 %; HCT 29.9 % (39.0-53.0); Hypochromasia Marked; Lymphocytes # (A) 0.7 k/uL (1.0-4.8); Lymphocytes % (A) 7 %; MCH 28.1 pg (25.0-35.0); MCHC 30.9 g/dL (31.0-37.0); MCV 90.8 fL (80.0-100.0); Monocytes # (A) 0.8 k/uL (0-1.0); Monocytes % (A) 8 %; Neutrophils # (A) 7.5 k/uL (1.3-7.7); Neutrophils % (A) 82 %; Platelet Count 172 k/uL (150-450); Poikilocytosis Slight; RDW 18.4 % (11.5-15.5); WBC 9.2 k/uL (3.8-10.6)
[2018-05-12 18:32] LABS: HGB 9.3 gm/dL (13.0-17.5)
--- NOTE | 2018-05-12 18:34 | PN ---
PROGRESS NOTE CHIEF COMPLAINT: Nausea and vomiting. HISTORY OF PRESENT ILLNESS: This gentleman has developed nausea and vomiting now. He denies any abdominal pain. He has had no fever or chills and he has had no diarrhea. BUN and creatinine are improving. He has had no chest pain or abdominal pain. PHYSICAL EXAM: He is much more awake and alert. Chest demonstrates quite good breath sounds bilaterally and cardiac demonstrates atrial fibrillation. His abdomen is soft and nontender without any visceromegaly. Bowel sounds are present. IMPRESSION: 1. Nausea, vomiting, etiology unknown. 2. Zofran is not helping. Compazine was ordered last night when the nurse called, but apparently was not entered into the computer. 3. Consider stopping amiodarone. MMODL / IJN: [id number] /
[2018-05-12 20:56] LABS: Glucose,Whole Blood 163 mg/dL (75-99)
--- NOTE | 2018-05-12 21:26 | XR ---
EXAMINATION TYPE: XR chest 1V portable DATE OF EXAM: 05/12/2018 COMPARISON: 05/11/2018 HISTORY: Short of breath TECHNIQUE: Single frontal view of the chest is obtained. FINDINGS: Heart is enlarged. There is pulmonary vascular congestion. There is right jugular catheter with tip in the superior vena cava. There is blunting of costophrenic angles. IMPRESSION: Congestive heart failure with pleural effusions. No change.
[2018-05-12] MEDS ORDERED: FUROSEMIDE 10 MG/ML 2 ML VIAL IV STA (21:53)
[2018-05-13] MEDS: AMIODARONE 450 MG in DEXTROSE 5% IN WATER 250 ML IV SCH ×6 (01:53→14:19)
[2018-05-13] MEDS: DEXTROSE 5% IN WATER 1,000 ML IV SCH ×2 (05:44→23:07)
[2018-05-13] MEDS: NITROGLYCERIN OINT 1 INCH/GM PACKET TOPICAL SCH ×5 (05:44→23:05)
[2018-05-13 06:22] LABS: Glucose,Whole Blood 135 mg/dL (75-99)
[2018-05-13] MEDS: INSULIN ASPART 100 UNIT/ML 1 ML 10 ML VIAL SQ SCH ×4 (06:25→21:27)
[2018-05-13 06:39] LABS: Calcium 9.3 mg/dL (8.4-10.2); Magnesium 1.9 mg/dL (1.6-2.3); Phosphorus 3.8 mg/dL (2.5-4.5); Potassium 4.2 mmol/L (3.5-5.1)
[2018-05-13] MEDS: IPRATROPIUM-ALBUTEROL 3 ML NEB INHALATION PRN ×4 (08:23→20:07)
[2018-05-13] MEDS ORDERED: FUROSEMIDE 10 MG/ML 4 ML VIAL IV STA (08:39)
--- NOTE | 2018-05-13 08:39 | P.PN ---
Subjective Patient is seen in follow-up for JUDY. Cr was 2.5 on admission and is down to 1.6 today. Creatinine in 2016 was 0.7. Patient presented with hemoglobin of 4.1 and has received multiple blood transfusions. He underwent EGD on May 07 which revealed duodenitis with duodenal bulb ulcers with no active bleeding. He is off all vasopressors. He is nonoliguric. Also being treated for E. coli UTI. Sodium level 145 today. Currently on amiodarone drip for a-fib. He is now nothing by mouth due to concern for aspiration. He is also requiring high flow oxygen. Vital signs are stable. General: The patient appeared well nourished and normally developed. HEENT: Head exam is unremarkable. Neck is without jugular venous distension. LUNGS: Scattered rhonchi. Breath sounds decreased. HEART: Irregular rate and rhythm. ABDOMEN: Abdominal exam reveals normal bowel sounds. Non-tender and non- distended. No evidence of peritonitis. EXTREMITITES: No clubbing, cyanosis, or edema. Objective - Vital Signs Vital signs: Vital Signs Temp 98.4 F 05/13/18 04:00 Pulse 72 05/13/18 08:37 Resp 22 05/13/18 04:00 BP 108/55 05/13/18 04:00 Pulse Ox 92 L 05/13/18 04:00 Intake & Output 05/12/18 05/13/18 05/13/18 18:59 06:59 18:59 Intake Total 650 300 Output Total 700 600 Balance -50 -300 Weight 102.5 kg 103 kg Intake: IV 50 Dextrose 5% in Water 1, 50 000 ml @ 20 mls/hr IV . Q24H [facility] Rx#:[id number] Intake, IV Titration 650 250 Amount Amiodarone 450 mg In 250 250 Dextrose 5% in Water 250 ml @ 1 MG/MIN 33.33 mls/ hr IV .Q7H31M [facility] Rx#: [id number] Dextrose 5% in Water 1, 400 000 ml @ 50 mls/hr IV . Q20H [facility] Rx#:[id number] Output: Urine 700 600 Other: Voiding Method Ileal Conduit (Right) Ileal Conduit (Right) ABP, PAP, CO, CI - Last Documented Arterial Blood Pressure 137/47 - Labs CBC & Chem 7: 05/12/18 17:48 05/13/18 05:21 Labs: Abnormal Lab Results - Last 24 Hours (Table) 05/12/18 05/12/18 05/12/18 Range/Units 12:01 16:52 17:48 RBC 3.30 L (4.30-5.90) m/uL Hgb 9.3 L D (13.0-17.5) gm/dL Hct 29.9 L (39.0-53.0) % MCHC 30.9 L (31.0-37.0) g/dL RDW 18.4 H (11.5-15.5) % Lymphocytes # 0.7 L (1.0-4.8) k/uL Chloride (98-107) mmol/L BUN (9-20) mg/dL Creatinine (0.66-1.25) mg/dL Glucose (74-99) mg/dL POC Glucose (mg/dL) 140 H 146 H (75-99) mg/dL 05/12/18 05/13/18 05/13/18 Range/Units 20:55 05:21 06:20 RBC (4.30-5.90) m/uL Hgb (13.0-17.5) gm/dL Hct (39.0-53.0) % MCHC (31.0-37.0) g/dL RDW (11.5-15.5) % Lymphocytes # (1.0-4.8) k/uL Chloride 116 H (98-107) mmol/L BUN 35 H (9-20) mg/dL Creatinine 1.60 H (0.66-1.25) mg/dL Glucose 121 H (74-99) mg/dL POC Glucose (mg/dL) 163 H 135 H (75-99) mg/dL Assessment and Plan Plan: Assessment: 1. Nonoliguric acute kidney injury secondary to ATN secondary to acute anemia and hypotension. Creatinine was 2.5 on admission. It is 1.6 today. Noted to have bilateral hydronephrosis. 2. Acute anemia status post multiple blood transfusions this admission. Hemoglobin stable. Status post EGD on May 07 which revealed duodenitis with duodenal bulb ulcers without any active bleeding. 3. Hypernatremia secondary to lack of oral water intake. 4. Bilateral hydronephrosis. Evaluated by urology. No interventions planned at this time. 5. E. coli UTI maintained on antibiotics. 6. A-fib with RVR maintained on amiodarone drip. 7. Volume overload. Plan: Continue D5W at 50 cc/hr - this hypotonic solution will not worsen his respiratory status. Lasix 40 mg IV once today. Aspiration precautions. Continue to monitor renal function and urine output. Avoid nephrotoxic agents and hypotensive episodes.
[2018-05-13] MEDS: LEVOFLOXACIN 250MG-D5W PMX 250 MG in DEXTROSE/WATER 1 50ML.BAG IVPB SCH (09:16)
[2018-05-13] MEDS: PANTOPRAZOLE 40 MG/10 ML VIAL IVP SCH (09:17)
[2018-05-13] MEDS: METOPROLOL TARTRATE 50 MG TAB PO SCH ×3 (11:20→20:33)
--- NOTE | 2018-05-13 11:25 | P.PN ---
Subjective Progress Note Date: 05/13/18 This is a 77-year-old male, looks much older than his stated age, was admitted on May 04 for a GI bleed. The patient did have an EGD which was apparently negative for active bleeding. He also has a history of acute kidney injury low blood pressure and atrial fibrillation. Patient continues to be in atrial fibrillation today the heart rate is in the 80s. He continues to be on amiodarone. Patient had several episodes today of vomiting, he is very nauseated. We do not feel this is secondary to the amiodarone. Our recommendations at this time are to continue with the amiodarone. Blood pressure 122/70, heart rate in the 80s, afebrile, 90% on room air. The patient did have a repeat modified barium swallow and he was noted to be aspirating. IV continues at 75 mL per hour. No recurrent GI bleeding. 05/13/2018 Patient was seen and examined this morning, currently nothing by mouth because of suspicion of aspiration. Continues to be on IV amiodarone drip. Patient is in atrial fibrillation with a heart rate in the 70s to 80s. Continues to require high flow oxygen. Blood pressure 110/50 with a heart rate in the 70s, 90% on 10 L high flow. BUN 35 today and creatinine 1.6. Objective - Vital Signs Vital signs: Vital Signs Temp 96.6 F L 05/13/18 08:00 Pulse 72 05/13/18 08:37 Resp 20 05/13/18 08:00 BP 109/55 05/13/18 08:00 Pulse Ox 90 L 05/13/18 08:00 Intake & Output 05/12/18 05/13/18 05/13/18 18:59 06:59 18:59 Intake Total 650 300 Output Total 700 600 Balance -50 -300 Weight 102.5 kg 103 kg Intake: IV 50 Dextrose 5% in Water 1, 50 000 ml @ 20 mls/hr IV . Q24H [facility] Rx#:[id number] Intake, IV Titration 650 250 Amount Amiodarone 450 mg In 250 250 Dextrose 5% in Water 250 ml @ 1 MG/MIN 33.33 mls/ hr IV .Q7H31M [facility] Rx#: [id number] Dextrose 5% in Water 1, 400 000 ml @ 50 mls/hr IV . Q20H [facility] Rx#:[id number] Output: Urine 700 600 Other: Voiding Method Ileal Conduit (Right) Ileal Conduit (Right) Ileal Conduit ( Right) ABP, PAP, CO, CI - Last Documented Arterial Blood Pressure 137/47 - Exam No apparent distress, the patient is much more awake and alert today, oriented 3, not requiring supplemental oxygen. HEENT examination is grossly unremarkable. Mucous membranes are moist. Neck supple. Full range of motion. No adenopathy thyromegaly or neck vein distention. Cardiovascular examination reveals a irregular rhythm and rate. He is in atrial fibrillation at a rate of 80. S1-S2 normal. No heart murmur noted. Lungs reveal diminished breath sounds throughout. Some scattered bilateral rhonchi. No wheezes or crackles. Abdomen soft bowel sounds are heard. No masses or tenderness. Extremities are intact. No cyanosis clubbing or edema. Skin is without rash or lesion. Neurologic examination is brief but nonfocal. - Labs CBC & Chem 7: 05/12/18 17:48 05/13/18 05:21 Labs: Abnormal Lab Results - Last 24 Hours (Table) 05/12/18 05/12/18 05/12/18 Range/Units 12:01 16:52 17:48 RBC 3.30 L (4.30-5.90) m/uL Hgb 9.3 L D (13.0-17.5) gm/dL Hct 29.9 L (39.0-53.0) % MCHC 30.9 L (31.0-37.0) g/dL RDW 18.4 H (11.5-15.5) % Lymphocytes # 0.7 L (1.0-4.8) k/uL Chloride (98-107) mmol/L BUN (9-20) mg/dL Creatinine (0.66-1.25) mg/dL Glucose (74-99) mg/dL POC Glucose (mg/dL) 140 H 146 H (75-99) mg/dL 05/12/18 05/13/18 05/13/18 Range/Units 20:55 05:21 06:20 RBC (4.30-5.90) m/uL Hgb (13.0-17.5) gm/dL Hct (39.0-53.0) % MCHC (31.0-37.0) g/dL RDW (11.5-15.5) % Lymphocytes # (1.0-4.8) k/uL Chloride 116 H (98-107) mmol/L BUN 35 H (9-20) mg/dL Creatinine 1.60 H (0.66-1.25) mg/dL Glucose 121 H (74-99) mg/dL POC Glucose (mg/dL) 163 H 135 H (75-99) mg/dL Assessment and Plan Plan: Assessment: #1. Acute blood loss anemia, secondary to GI bleeding #2. Hypotension, weakness, falls, black tarry stools related to the above #3. Altered mentation, likely related to hypovolemia, and possibly related to sepsis #4. Leukocytosis, rule out sepsis #5. Coumadin induced coagulopathy #6. Chronic atrial fibrillation, on chronic anticoagulation, on IV amiodarone #7. Acute kidney injury related to acute blood loss anemia and hypotension #8. Lactic acidosis, rule out sepsis #9. History of bladder and prostate cancer, status post urostomy placement #10. Previous history of myocardial infarction #11. Dysphasia #12. E. coli urinary tract infection Plan: From cardiology's perspective, we'll recommend to continue the patient on IV amiodarone drip. We will continue to follow. DNP note has been reviewed, I agree with a documented findings and plan of care. Patient was seen and examined.
--- NOTE | 2018-05-13 12:34 | P.PN ---
Subjective Progress Note Date: 05/13/18 Principal diagnosis: GI bleed, alcoholism, acute kidney injury Progress note dated 05/10/2018 This is a 77-year-old male, looks much older than his stated age, was admitted on May 04 for a GI bleed. The patient did have an EGD which was apparently negative for active bleeding. He also has a history of acute kidney injury low blood pressure and atrial fibrillation. He was X Dave 2 days ago. The patient 's currently on O2 at 4 L by nasal cannula. The patient's currently dextrose IV running at 80. It will be turned down to KVO. He is also on amiodarone at 0.5 mg/m. Since being here, the patient has received 6 units of PRBCs and 1 unit of fresh frozen plasma. CODE STATUS has not been addressed and should be addressed. Currently, the patient is a full code. The patient's very lethargic but does arouse. He mumbles words. Nothing is understandable. Apparently he's been this way since he was admitted and since he was extubated. Chest x-ray is consistent with mild fluid overload. I did have the opportunity to speak to the patient's daughter. She will talk to her brother and sister and make some decisions about CODE STATUS. She will get adequate dose later today. Progress note dated 05/11/2018 77-year-old male who actually looks much better today. He was admitted on May 04 for GI bleed. The patient did have an EGD which was negative for active bleeding. He also has a history of acute kidney injury, hypotension, and atrial fibrillation. The patient was extubated 2 days ago. Currently, the patient is on room air. The patient's IV is dextrose at 50 mL an hour he is currently on esmolol at 50 g and amiodarone at 1 mg. The patient declares to me that he would not want to be on life support. I did talk to the daughter about that. Currently he is in atrial fibrillation with a rate of 103. The patient looks much better today than he did yesterday. Chest x-rays consistent with fluid overload. He did fail his modified barium swallow yesterday but they 're coming back today to recheck him. He denies any pain or discomfort. Progress note dated 05/13/2018 77-year-old male who actually is much improved. He was admitted back on 2017 for GI bleed. The patient did have an EGD which was negative for active bleeding. He has a history of acute kidney injury, hypotension, which is resolved, and atrial fibrillation. The patient was extubated about 4 days ago. The patient is currently doing reasonably well. Some question about the patient's CODE STATUS. I asked the patient and his 2 daughters to get together and talk about it. He is not sure what he wants. Currently, he is a full code. Another issue with this patient as he is not receiving any nutrition. We will see if GI or interventional radiology complaining Dobbhoff so we can feed him enterally. If that's not possible, he does have a central line in place and we could see him by TPN. He has failed his modified barium swallow. Other than that, he is doing reasonably well and has improved. Objective - Vital Signs Vital signs: Vital Signs Temp 97.3 F L 05/13/18 12:00 Pulse 76 05/13/18 11:59 Resp 18 05/13/18 11:54 BP 123/60 05/13/18 11:54 Pulse Ox 98 05/13/18 11:54 Intake & Output 05/12/18 05/13/18 05/13/18 18:59 06:59 18:59 Intake Total 650 300 250 Output Total 700 600 300 Balance -50 -300 -50 Weight 102.5 kg 103 kg 103 kg Intake: IV 50 Dextrose 5% in Water 1, 50 000 ml @ 20 mls/hr IV . Q24H [facility] Rx#:[id number] Intake, IV Titration 650 250 250 Amount Amiodarone 450 mg In 250 250 250 Dextrose 5% in Water 250 ml @ 1 MG/MIN 33.33 mls/ hr IV .Q7H31M [facility] Rx#: [id number] Dextrose 5% in Water 1, 400 000 ml @ 50 mls/hr IV . Q20H [facility] Rx#:[id number] Output: Urine 700 600 300 Other: Voiding Method Ileal Conduit (Right) Ileal Conduit (Right) Ileal Conduit ( Right) ABP, PAP, CO, CI - Last Documented Arterial Blood Pressure 137/47 - Exam No apparent distress, the patient is much more awake and alert today, oriented 3, not requiring supplemental oxygen. HEENT examination is grossly unremarkable. Mucous membranes are moist. Neck supple. Full range of motion. No adenopathy thyromegaly or neck vein distention. Cardiovascular examination reveals a irregular rhythm and rate. He is in atrial fibrillation at a rate of 103. S1-S2 normal. No heart murmur noted. Lungs reveal diminished breath sounds throughout. Some scattered bilateral rhonchi. No wheezes or crackles. Abdomen soft bowel sounds are heard. No masses or tenderness. Extremities are intact. No cyanosis clubbing or edema. Skin is without rash or lesion. Neurologic examination is brief but nonfocal. - Labs CBC & Chem 7: 05/12/18 17:48 05/13/18 05:21 Labs: Abnormal Lab Results - Last 24 Hours (Table) 05/12/18 05/12/18 05/12/18 Range/Units 16:52 17:48 20:55 RBC 3.30 L (4.30-5.90) m/uL Hgb 9.3 L D (13.0-17.5) gm/dL Hct 29.9 L (39.0-53.0) % MCHC 30.9 L (31.0-37.0) g/dL RDW 18.4 H (11.5-15.5) % Lymphocytes # 0.7 L (1.0-4.8) k/uL Chloride (98-107) mmol/L BUN (9-20) mg/dL Creatinine (0.66-1.25) mg/dL Glucose (74-99) mg/dL POC Glucose (mg/dL) 146 H 163 H (75-99) mg/dL 05/13/18 05/13/18 Range/Units 05:21 06:20 RBC (4.30-5.90) m/uL Hgb (13.0-17.5) gm/dL Hct (39.0-53.0) % MCHC (31.0-37.0) g/dL RDW (11.5-15.5) % Lymphocytes # (1.0-4.8) k/uL Chloride 116 H (98-107) mmol/L BUN 35 H (9-20) mg/dL Creatinine 1.60 H (0.66-1.25) mg/dL Glucose 121 H (74-99) mg/dL POC Glucose (mg/dL) 135 H (75-99) mg/dL Assessment and Plan Assessment: Assessment Acute GI bleed, exacerbated by alcohol induced coagulopathy, with negative EGD Acute hypotension, resolved. Acute kidney injury Acute blood loss anemia Chronic atrial fibrillation Alcoholic liver disease induced coagulopathy History of bladder/prostate cancer Metabolic acidosis, resolved Coronary artery disease, status post previous myocardial infarction. Cardiomyopathy with an ejection fraction of 25-30% Mental status changes Ventilator-dependent respiratory failure, resolved E. coli urinary tract infection Inadequate swallowing mechanism with likely aspiration Plan: Plan dated 05/10/2018 Chest x-ray is consistent with ongoing pulmonary venous congestion and small bilateral pleural effusions. The IV was turned down to KVO. The patient's currently on O2 at 4 L by nasal cannula and continues on amiodarone at 0.5 mg/ m. The patient has received 6 units of PRBCs and 1 unit of fresh frozen plasma. CODE STATUS absolutely needs to be addressed. White count 9.5 hemoglobin 7.9 hematocrit 25.9 and platelet count 228,000. Sodium 147 potassium 4 chloride is 119 CO2 27 BUN and creatinine were 59 and 1.90. Overall prognosis is very poor and I will have a discussion with the family soon. Medication list is reviewed and unnecessary medications including long- acting nitroglycerin and others are discontinued. Critical care time 33 minutes Chest x-rays consistent with pulmonary edema. The patient remains on esmolol and amiodarone. His mental status is improved dramatically. White count is 6.5 , hemoglobin 7.6, hematocrit 24.3 and platelet count was normal. Sodium and potassium normal, chloride 117, CO2 26, anion gap normal, BUN and creatinine were 50 and 1.80. Urine was positive for Escherichia coli which was sensitive to everything. Zosyn is discontinued and Levaquin is started. Unnecessary medications will be discontinued. Critical care time 34 minutes Progress note dated 05/13/2018 The patient continues to improve. The patient will require some form of nutrition. We'll attempt to place a Dobbhoff tube. We'll ask gastroenterology or interventional radiology to do this for us. If this is not possible, we will use the triple lumen as IV access for TPN. The patient has a very poor swallowing mechanism and likely aspirated. I'm also asking the patient to get together with his family especially his 2 daughters and decide about a CODE STATUS. He is going back and forth about this. Sodium is 145, potassium 4.2, chloride is 116, and CO2 content 22. BUN and creatinine are 35 and 1.60 respectively. Urine samples from May 05 were positive for Escherichia coli. Chest x-ray from May 12 shows congestive heart failure changes which are unchanged. Prognosis is guarded. Time with Patient: Less than 30
[2018-05-13] MEDS: PYRIDOXINE 50 MG TAB PO SCH (14:58)
[2018-05-13 16:21] LABS: Glucose,Whole Blood 122 mg/dL (75-99)
[2018-05-13 20:38] LABS: Glucose,Whole Blood 135 mg/dL (75-99)
--- NOTE | 2018-05-13 22:04 | P.PN ---
Subjective Progress Note Date: 05/13/18 Principal diagnosis: Dysphagia The patient was previously seen earlier in this admission at which time investigation for anemia was performed with an EGD. This was significant for ulcerations of the duodenum as well as trauma noted in the esophagus, with no active signs of GI bleeding at that time. Since then the patient's hemoglobin has remained stable. However the patient has had difficulty eating and drinking which was investigated with a fluoroscopic video swallow which was significant for microaspiration. The patient has been made nothing by mouth and GI workup for evaluation of EGD with Dobbhoff placement. The patient denies any abdominal pain nausea vomiting, hematemesis, hematochezia or melena. Objective - Vital Signs Vital signs: Vital Signs Temp 98.8 F 05/13/18 20:34 Pulse 105 H 05/13/18 20:34 Resp 20 05/13/18 20:34 BP 140/69 05/13/18 20:34 Pulse Ox 96 05/13/18 20:34 Intake & Output 05/13/18 05/13/18 05/14/18 06:59 18:59 06:59 Intake Total 300 250 Output Total 526 504 1550 Balance -300 -150 -1000 Weight 103 kg 103 kg Intake: IV 50 Dextrose 5% in Water 1, 50 000 ml @ 20 mls/hr IV . Q24H [facility] Rx#:[id number] Intake, IV Titration 250 250 Amount Amiodarone 450 mg In 250 250 Dextrose 5% in Water 250 ml @ 1 MG/MIN 33.33 mls/ hr IV .Q7H31M [facility] Rx#: [id number] Output: Urine 378 303 8461 Right Lower Abdomen 100 Other: Voiding Method Ileal Conduit (Right) Ileal Conduit (Right) Ileal Conduit ( Right) ABP, PAP, CO, CI - Last Documented Arterial Blood Pressure 137/47 - Constitutional General appearance: Present: cooperative - EENT Eyes: Present: EOMI. Absent: scleral icterus - Respiratory Respiratory: negative: wheezing, other (No respiratory distress noted.) - Gastrointestinal General gastrointestinal: Present: normal bowel sounds, soft. Absent: distended , hepatomegaly, rigid, tenderness - Integumentary Integumentary: Absent: flushed, pale, rash - Psychiatric Psychiatric: Present: A&O x's 3, appropriate affect (Fluoroscopic video swallow evaluation reviewed.) - Labs CBC & Chem 7: 05/12/18 17:48 05/13/18 05:21 Labs: Abnormal Lab Results - Last 24 Hours (Table) 05/13/18 05/13/18 05/13/18 Range/Units 05:21 06:20 16:19 Chloride 116 H (98-107) mmol/L BUN 35 H (9-20) mg/dL Creatinine 1.60 H (0.66-1.25) mg/dL Glucose 121 H (74-99) mg/dL POC Glucose (mg/dL) 135 H 122 H (75-99) mg/dL 05/13/18 Range/Units 20:36 Chloride (98-107) mmol/L BUN (9-20) mg/dL Creatinine (0.66-1.25) mg/dL Glucose (74-99) mg/dL POC Glucose (mg/dL) 135 H (75-99) mg/dL Assessment and Plan (1) Oropharyngeal dysphagia Narrative/Plan: The patient has had difficulty swallowing and evaluation with fluoroscopic video swallow was significant for microaspiration. Consult was placed for endoscopic guided Dobbhoff placement. Current Visit: Yes Status: Acute Code(s): R13.12 - DYSPHAGIA, OROPHARYNGEAL PHASE SNOMED Code(s): 11718858 (2) GI bleed Narrative/Plan: Previous investigation with EGD was significant for duodenitis with ulcerations and esophageal trauma likely from NG tube placement. The patient's hemoglobin has remained stable since prior evaluation. Current Visit: Yes Status: Acute Code(s): K92.2 - GASTROINTESTINAL HEMORRHAGE, UNSPECIFIED SNOMED Code(s): 26939274 Plan: 1. Nothing by mouth per recommendations by speech language pathology. 2. We'll plan on EGD with Dobbhoff placement tomorrow. 3. Continue PPI therapy. 4. Continue to monitor hemoglobin and hematocrit and transfuse as needed. 5. Other medical management per primary team. Thank you for the opportunity to allow us to participate in the care of this patient we will continue to follow.
--- NOTE | 2018-05-14 00:36 | P.PN ---
Subjective Progress Note Date: 05/13/18 Principal diagnosis: GI bleed Patient is a 77-year-old male with a known history of Atrial Fibrillation, prostate and bladder Cancer, Myocardial Infarction (CA) was initially admitted to the hospital on 05/04/2018 due to GI bleed. Patient had EGD done at the time and showed no active bleeding. Patient became hypotensive and went into hypoxic respiratory failure and was transferred to MICU. Patient was subsequently extubated and transferred to select specialty. Patient does have a history of chronic alcohol abuse and coagulopathy. His renal function is much improved now. Urine culture showed E. coli. Otherwise patient has generalized weakness and paste elevation. 05/13/2018 Patient denied any complaints of chest pain. Shortness of breath is stable. Patient has worsening shortness of breath last night and was given IV Lasix. Continue with hydration gently. Patient is requiring high flow oxygen via nasal cannula. Otherwise patient is nothing by mouth and failed swallow evaluation. GI is planning for EGD and Dobbhoff placement tomorrow. Patient is on antibiotics in the form of Levaquin. Urine culture showed E. coli. Patient is on amiodarone drip as well for atrial fibrillation.. Active Medications Generic Name Dose Route Start Last Admin Trade Name Freq PRN Reason Stop Dose Admin Acetaminophen 650 mg 05/04/18 20:57 Tylenol Tab PO Q4HR PRN Fever and/or Mild Pain Albuterol/Ipratropium 3 ml 05/05/18 02:21 05/13/18 20:07 Duoneb 0.5 Mg-3 Mg/3 Ml Soln INHALATION 3 ml RT-Q2H PRN Administration Shortness Of Breath Or Wheezing Dextrose/Water 1,000 mls @ 50 mls/hr 05/10/18 15:30 05/13/18 23:07 Dextrose 5%-Water Iv Soln IV 50 mls/hr .Q20H [facility] Administration Levofloxacin/Dextrose 250 mg/ 50 mls @ 50 mls/hr 05/12/18 09:00 05/13/18 09: 16 IV Solution IVPB 50 mls/hr Q24H [facility] Administration Amiodarone HCl 450 mg/ 250 mls @ 16.66 mls/hr 05/13/18 13:46 05/13/18 14:19 Dextrose/Water IV 0.5 mg/min .Q15H1M [facility] 16.66 mls/hr Administration 0.5 MG/MIN Insulin Aspart 0 unit 05/09/18 21:00 05/13/18 21:27 Novolog SQ Not Given ACHS [facility] Protocol Metoclopramide HCl 10 mg 05/12/18 11:59 05/12/18 12:26 Reglan IVP 10 mg Q6HR PRN Administration Vomiting Metoprolol Tartrate 100 mg 05/11/18 22:00 05/13/18 20:33 Lopressor PO Not Given TID [facility] Naloxone HCl 0.2 mg 05/04/18 20:57 Narcan IV Q2M PRN Opioid Reversal Nitroglycerin 1 inch 05/10/18 12:00 05/13/18 23:05 Nitro-Bid Oint TOPICAL 1 inch Q6HR [facility] Administration Ondansetron HCl 4 mg 05/11/18 21:03 05/12/18 18:49 Zofran IVP 4 mg Q6HR PRN Administration Nausea And Vomiting Pantoprazole Sodium 40 mg 05/13/18 09:00 05/13/18 09:17 Protonix IVP 40 mg DAILY [facility] Administration Prochlorperazine Maleate 10 mg 05/12/18 11:57 05/12/18 15:44 Compazine PO 10 mg Q6HR PRN Administration Nausea And Vomiting Pyridoxine HCl 100 mg 05/05/18 15:00 05/13/18 14:58 Vitamin B-6 PO Not Given DAILY@1500 [facility] Objective - Vital Signs Vital signs: Vital Signs Temp 97.3 F L 05/13/18 12:00 Pulse 76 05/13/18 11:59 Resp 18 05/13/18 11:54 BP 123/60 05/13/18 11:54 Pulse Ox 98 05/13/18 11:54 Intake & Output 05/12/18 05/13/18 05/13/18 18:59 06:59 18:59 Intake Total 650 300 250 Output Total 700 600 400 Balance -50 -300 -150 Weight 102.5 kg 103 kg 103 kg Intake: IV 50 Dextrose 5% in Water 1, 50 000 ml @ 20 mls/hr IV . Q24H [facility] Rx#:[id number] Intake, IV Titration 650 250 250 Amount Amiodarone 450 mg In 250 250 250 Dextrose 5% in Water 250 ml @ 1 MG/MIN 33.33 mls/ hr IV .Q7H31M [facility] Rx#: [id number] Dextrose 5% in Water 1, 400 000 ml @ 50 mls/hr IV . Q20H [facility] Rx#:[id number] Output: Urine 700 600 400 Right Lower Abdomen 100 Other: Voiding Method Ileal Conduit (Right) Ileal Conduit (Right) Ileal Conduit ( Right) ABP, PAP, CO, CI - Last Documented Arterial Blood Pressure 137/47 - Exam PHYSICAL EXAMINATION: Patient is lying in the bed comfortably, no acute distress, awake alert and oriented.. HEENT: Normocephalic. Neck is supple. Pupils reactive. Nostrils clear. Oral cavity is moist. Ears reveal no drainage. Neck reveals no JVD, carotid bruits, or thyromegaly. CHEST EXAMINATION: Trachea is central. Symmetrical expansion. Bilateral diffuse rhonchi and basilar crackles.. CARDIAC: Normal S1, S2 with no gallops. No murmurs . Irregular rhythm. ABDOMEN: Soft. Bowel sounds normal. No organomegaly. No abdominal bruits. Extremities: reveal no edema. No clubbing or cyanosis Neurologically awake, alert, oriented x3 with well-coordinated movements. No focal deficits noted Skin: No rash or skin lesions. Psychiatric: Coperative. Nonsuicidal Musculoskeletal: No joint swelling or deformity. Normal range of motion. - Labs CBC & Chem 7: 05/12/18 17:48 05/13/18 05:21 Labs: Abnormal Lab Results - Last 24 Hours (Table) 05/12/18 05/12/18 05/12/18 Range/Units 16:52 17:48 20:55 RBC 3.30 L (4.30-5.90) m/uL Hgb 9.3 L D (13.0-17.5) gm/dL Hct 29.9 L (39.0-53.0) % MCHC 30.9 L (31.0-37.0) g/dL RDW 18.4 H (11.5-15.5) % Lymphocytes # 0.7 L (1.0-4.8) k/uL Chloride (98-107) mmol/L BUN (9-20) mg/dL Creatinine (0.66-1.25) mg/dL Glucose (74-99) mg/dL POC Glucose (mg/dL) 146 H 163 H (75-99) mg/dL 05/13/18 05/13/18 Range/Units 05:21 06:20 RBC (4.30-5.90) m/uL Hgb (13.0-17.5) gm/dL Hct (39.0-53.0) % MCHC (31.0-37.0) g/dL RDW (11.5-15.5) % Lymphocytes # (1.0-4.8) k/uL Chloride 116 H (98-107) mmol/L BUN 35 H (9-20) mg/dL Creatinine 1.60 H (0.66-1.25) mg/dL Glucose 121 H (74-99) mg/dL POC Glucose (mg/dL) 135 H (75-99) mg/dL Assessment and Plan Assessment: Acute blood loss anemia secondary to GI bleed. with negative EGD Acute hypotension secondary to above, resolved. Acute kidney injury likely prerenal improved. E. coli urinary tract infection Chronic atrial fibrillation on anticoagulation and amiodarone IV Alcoholic liver disease and Coumadin induced coagulopathy History of bladder/prostate cancer. Status post urostomy placement Metabolic acidosis, resolved Coronary artery disease, status post previous myocardial infarction. Cardiomyopathy with an ejection fraction of 25-30% Ventilator-dependent respiratory failure, resolved Plan: Patient be continued on IV hydration and GI is planning for duboff tube placement due to failed swallow evaluation. Continue the antibiotics. Cardiology and pulmonary is following. Monitor H&H and further recommendations based on the clinical course. Time with Patient: Greater than 30
[2018-05-14] MEDS: AMIODARONE 450 MG in DEXTROSE 5% IN WATER 250 ML IV SCH ×4 (02:59→15:01)
[2018-05-14 06:07] LABS: Glucose,Whole Blood 135 mg/dL (75-99)
[2018-05-14 06:27] LABS: Anisocytosis Slight; Basophils % (A) 0 %; Eosinophils % (A) 0 %; HCT 26.4 % (39.0-53.0); HGB 8.2 gm/dL (13.0-17.5); Hypochromasia Marked; Lymphocytes # (A) 0.9 k/uL (1.0-4.8); Lymphocytes % (A) 10 %; MCH 28.3 pg (25.0-35.0); MCHC 31.2 g/dL (31.0-37.0); MCV 90.6 fL (80.0-100.0); Mean Platelet Volume 10.9; Monocytes # (A) 1.1 k/uL (0-1.0); Monocytes % (A) 12 %; Neutrophils # (A) 6.8 k/uL (1.3-7.7); Neutrophils % (A) 74 %; Platelet Count 114 k/uL (150-450); Poikilocytosis Slight; RBC 2.91 m/uL (4.30-5.90); RDW 18.4 % (11.5-15.5); WBC 9.1 k/uL (3.8-10.6)
[2018-05-14 06:35] LABS: Calcium 9.1 mg/dL (8.4-10.2); Magnesium 1.9 mg/dL (1.6-2.3); Potassium 3.3 mmol/L (3.5-5.1)
[2018-05-14] MEDS: INSULIN ASPART 100 UNIT/ML 1 ML 10 ML VIAL SQ SCH ×4 (06:46→21:39)
[2018-05-14] MEDS: NITROGLYCERIN OINT 1 INCH/GM PACKET TOPICAL SCH ×4 (06:47→23:38)
[2018-05-14] MEDS: IPRATROPIUM-ALBUTEROL 3 ML NEB INHALATION PRN ×3 (08:30→21:15)
[2018-05-14] MEDS: LEVOFLOXACIN 250MG-D5W PMX 250 MG in DEXTROSE/WATER 1 50ML.BAG IVPB SCH (09:36)
[2018-05-14] MEDS ORDERED: POTASSIUM CHLORIDE ER 20 MEQ TAB.ER PO STA (10:39)
--- NOTE | 2018-05-14 10:39 | P.PN ---
Subjective Patient is seen in follow-up for JUDY. Cr was 2.5 on admission and is down to 1.36 today. Creatinine in 2016 was 0.7. Patient presented with hemoglobin of 4.1 and has received multiple blood transfusions. He underwent EGD on May 07 which revealed duodenitis with duodenal bulb ulcers with no active bleeding. He is off all vasopressors. He is nonoliguric. Also being treated for E. coli UTI. Sodium level 146 today. Currently on amiodarone drip for a-fib. He is now nothing by mouth due to concern for aspiration. Scheduled for Dophoff placement today. Vital signs are stable. General: The patient appeared well nourished and normally developed. HEENT: Head exam is unremarkable. Neck is without jugular venous distension. LUNGS: Scattered rhonchi. Breath sounds decreased. HEART: Irregular rate and rhythm. ABDOMEN: Abdominal exam reveals normal bowel sounds. Non-tender and non- distended. No evidence of peritonitis. EXTREMITITES: No clubbing, cyanosis, or edema. Objective - Vital Signs Vital signs: Vital Signs Temp 97.4 F L 05/14/18 09:42 Pulse 101 H 05/14/18 09:42 Resp 18 05/14/18 09:42 BP 135/68 05/14/18 09:42 Pulse Ox 97 05/14/18 09:42 Intake & Output 05/13/18 05/14/18 05/14/18 18:59 06:59 18:59 Intake Total 250 211.027 Output Total 400 1550 Balance -150 -1338.973 Weight 103 kg 101 kg Intake: Intake, IV Titration 250 211.027 Amount Amiodarone 450 mg In 211.027 Dextrose 5% in Water 250 ml @ 0.5 MG/MIN 16.66 mls /hr IV .Q15H1M [facility] Rx#: [id number] Amiodarone 450 mg In 250 Dextrose 5% in Water 250 ml @ 1 MG/MIN 33.33 mls/ hr IV .Q7H31M [facility] Rx#: [id number] Output: Urine 400 1550 Right Lower Abdomen 100 Other: Voiding Method Ileal Conduit (Right) Ileal Conduit (Right) ABP, PAP, CO, CI - Last Documented Arterial Blood Pressure 137/47 - Labs CBC & Chem 7: 05/14/18 05:39 05/14/18 05:39 Labs: Abnormal Lab Results - Last 24 Hours (Table) 05/13/18 05/13/18 05/14/18 Range/Units 16:19 20:36 05:39 RBC (4.30-5.90) m/uL Hgb (13.0-17.5) gm/dL Hct (39.0-53.0) % RDW (11.5-15.5) % Plt Count (150-450) k/uL Lymphocytes # (1.0-4.8) k/uL Monocytes # (0-1.0) k/uL Sodium 146 H (137-145) mmol/L Potassium 3.3 L (3.5-5.1) mmol/L Chloride 114 H (98-107) mmol/L BUN 30 H (9-20) mg/dL Creatinine 1.36 H (0.66-1.25) mg/dL Glucose 116 H (74-99) mg/dL POC Glucose (mg/dL) 122 H 135 H (75-99) mg/dL 05/14/18 05/14/18 Range/Units 05:39 06:06 RBC 2.91 L (4.30-5.90) m/uL Hgb 8.2 L (13.0-17.5) gm/dL Hct 26.4 L (39.0-53.0) % RDW 18.4 H (11.5-15.5) % Plt Count 114 L (150-450) k/uL Lymphocytes # 0.9 L (1.0-4.8) k/uL Monocytes # 1.1 H (0-1.0) k/uL Sodium (137-145) mmol/L Potassium (3.5-5.1) mmol/L Chloride (98-107) mmol/L BUN (9-20) mg/dL Creatinine (0.66-1.25) mg/dL Glucose (74-99) mg/dL POC Glucose (mg/dL) 135 H (75-99) mg/dL Assessment and Plan Plan: Assessment: 1. Nonoliguric acute kidney injury secondary to ATN secondary to acute anemia and hypotension. Creatinine was 2.5 on admission. It is 1.36 today. Noted to have bilateral hydronephrosis. 2. Acute anemia status post multiple blood transfusions this admission. Hemoglobin stable. Status post EGD on May 07 which revealed duodenitis with duodenal bulb ulcers without any active bleeding. 3. Hypernatremia secondary to lack of oral water intake. 4. Bilateral hydronephrosis. Evaluated by urology. No interventions planned at this time. 5. E. coli UTI maintained on antibiotics. 6. A-fib with RVR maintained on amiodarone drip. 7. Volume overload. Improved with diuresis. 8. Hypokalemia from poor oral intake and diuresis. Plan: Increase D5W to 70 mL an hour. Once Dophoff placed, can start water flushes 300 mL every 6 hours and Hep-Lock IV fluids. Replace potassium. 60 mEq today. Continue to monitor renal function and urine output. Avoid nephrotoxic agents and hypotensive episodes.
[2018-05-14 11:36] LABS: Glucose,Whole Blood 132 mg/dL (75-99)
[2018-05-14] MEDS ORDERED: KETAMINE 10 MG/ML 20 ML VIAL ONE (12:31)
[2018-05-14] MEDS ORDERED: LIDOCAINE 1% INJ 10MG/ML (20 ML MDV) ONE (12:31)
[2018-05-14] MEDS ORDERED: MIDAZOLAM 2 MG/2 ML VIAL ONE (12:31)
[2018-05-14] MEDS ORDERED: PROPOFOL 10 MG/ML 20 ML VIAL IV ONE (12:31)
[2018-05-14] MEDS ORDERED: IV FLUID CONTINUATION 1,000 ML IV ONE (12:38)
--- NOTE | 2018-05-14 13:51 | P.PN ---
Subjective Progress Note Date: 05/14/18 Principal diagnosis: GI bleed, alcoholism, acute kidney injury Progress note dated 05/10/2018 This is a 77-year-old male, looks much older than his stated age, was admitted on May 04 for a GI bleed. The patient did have an EGD which was apparently negative for active bleeding. He also has a history of acute kidney injury low blood pressure and atrial fibrillation. He was X Dave 2 days ago. The patient 's currently on O2 at 4 L by nasal cannula. The patient's currently dextrose IV running at 80. It will be turned down to KVO. He is also on amiodarone at 0.5 mg/m. Since being here, the patient has received 6 units of PRBCs and 1 unit of fresh frozen plasma. CODE STATUS has not been addressed and should be addressed. Currently, the patient is a full code. The patient's very lethargic but does arouse. He mumbles words. Nothing is understandable. Apparently he's been this way since he was admitted and since he was extubated. Chest x-ray is consistent with mild fluid overload. I did have the opportunity to speak to the patient's daughter. She will talk to her brother and sister and make some decisions about CODE STATUS. She will get adequate dose later today. Progress note dated 05/11/2018 77-year-old male who actually looks much better today. He was admitted on May 04 for GI bleed. The patient did have an EGD which was negative for active bleeding. He also has a history of acute kidney injury, hypotension, and atrial fibrillation. The patient was extubated 2 days ago. Currently, the patient is on room air. The patient's IV is dextrose at 50 mL an hour he is currently on esmolol at 50 g and amiodarone at 1 mg. The patient declares to me that he would not want to be on life support. I did talk to the daughter about that. Currently he is in atrial fibrillation with a rate of 103. The patient looks much better today than he did yesterday. Chest x-rays consistent with fluid overload. He did fail his modified barium swallow yesterday but they 're coming back today to recheck him. He denies any pain or discomfort. Progress note dated 05/13/2018 77-year-old male who actually is much improved. He was admitted back on 2017 for GI bleed. The patient did have an EGD which was negative for active bleeding. He has a history of acute kidney injury, hypotension, which is resolved, and atrial fibrillation. The patient was extubated about 4 days ago. The patient is currently doing reasonably well. Some question about the patient's CODE STATUS. I asked the patient and his 2 daughters to get together and talk about it. He is not sure what he wants. Currently, he is a full code. Another issue with this patient as he is not receiving any nutrition. We will see if GI or interventional radiology complaining Dobbhoff so we can feed him enterally. If that's not possible, he does have a central line in place and we could see him by TPN. He has failed his modified barium swallow. Other than that, he is doing reasonably well and has improved. The patient is seen again today 05/14/2018 in follow-up on the selective care unit. He is currently awake and alert in no acute distress. He sitting up in a chair at the bedside. He denies any worsening shortness of breath, cough or congestion. He does continue to require 8 L high flow nasal cannula to maintain O2 saturations in the 90s. He's been afebrile. The plan is for GI services to insert a Dobbhoff tube for nutritional support. Objective - Vital Signs Vital signs: Vital Signs Temp 97.4 F L 05/14/18 09:42 Pulse 77 05/14/18 11:54 Resp 18 05/14/18 09:42 BP 135/68 05/14/18 09:42 Pulse Ox 97 05/14/18 09:42 Intake & Output 05/13/18 05/14/18 05/14/18 18:59 06:59 18:59 Intake Total 250 211.027 200 Output Total 400 1550 400 Balance -150 -1338.973 -200 Weight 103 kg 101 kg Intake: IV 200 Intake, IV Titration 250 211.027 Amount Amiodarone 450 mg In 211.027 Dextrose 5% in Water 250 ml @ 0.5 MG/MIN 16.66 mls /hr IV .Q15H1M [facility] Rx#: [id number] Amiodarone 450 mg In 250 Dextrose 5% in Water 250 ml @ 1 MG/MIN 33.33 mls/ hr IV .Q7H31M [facility] Rx#: [id number] Output: Urine 400 1550 400 Right Lower Abdomen 100 Other: Voiding Method Ileal Conduit (Right) Ileal Conduit (Right) # Bowel Movements 0 ABP, PAP, CO, CI - Last Documented Arterial Blood Pressure 137/47 - Exam No apparent distress, the patient is much more awake and alert today, oriented 3, still requiring 8 L high flow nasal cannula. HEENT examination is grossly unremarkable. Mucous membranes are moist. Neck supple. Full range of motion. No adenopathy thyromegaly or neck vein distention. Cardiovascular examination reveals a irregular rhythm and rate. He is in atrial fibrillation at a rate of 103. S1-S2 normal. No heart murmur noted. Lungs reveal diminished breath sounds throughout. Some scattered bilateral rhonchi. No wheezes or crackles. Abdomen soft bowel sounds are heard. No masses or tenderness. Extremities are intact. No cyanosis clubbing or edema. Skin is without rash or lesion. Neurologic examination is brief but nonfocal. - Labs CBC & Chem 7: 05/14/18 05:39 05/14/18 05:39 Labs: Abnormal Lab Results - Last 24 Hours (Table) 05/13/18 05/13/18 05/14/18 Range/Units 16:19 20:36 05:39 RBC (4.30-5.90) m/uL Hgb (13.0-17.5) gm/dL Hct (39.0-53.0) % RDW (11.5-15.5) % Plt Count (150-450) k/uL Lymphocytes # (1.0-4.8) k/uL Monocytes # (0-1.0) k/uL Sodium 146 H (137-145) mmol/L Potassium 3.3 L (3.5-5.1) mmol/L Chloride 114 H (98-107) mmol/L BUN 30 H (9-20) mg/dL Creatinine 1.36 H (0.66-1.25) mg/dL Glucose 116 H (74-99) mg/dL POC Glucose (mg/dL) 122 H 135 H (75-99) mg/dL 05/14/18 05/14/18 05/14/18 Range/Units 05:39 06:06 11:34 RBC 2.91 L (4.30-5.90) m/uL Hgb 8.2 L (13.0-17.5) gm/dL Hct 26.4 L (39.0-53.0) % RDW 18.4 H (11.5-15.5) % Plt Count 114 L (150-450) k/uL Lymphocytes # 0.9 L (1.0-4.8) k/uL Monocytes # 1.1 H (0-1.0) k/uL Sodium (137-145) mmol/L Potassium (3.5-5.1) mmol/L Chloride (98-107) mmol/L BUN (9-20) mg/dL Creatinine (0.66-1.25) mg/dL Glucose (74-99) mg/dL POC Glucose (mg/dL) 135 H 132 H (75-99) mg/dL Assessment and Plan Assessment: Assessment Acute GI bleed, exacerbated by alcohol induced coagulopathy, with negative EGD Acute hypotension, resolved. Acute kidney injury Acute blood loss anemia Chronic atrial fibrillation Alcoholic liver disease induced coagulopathy History of bladder/prostate cancer Metabolic acidosis, resolved Coronary artery disease, status post previous myocardial infarction. Cardiomyopathy with an ejection fraction of 25-30% Mental status changes Ventilator-dependent respiratory failure, resolved E. coli urinary tract infection Inadequate swallowing mechanism with likely aspiration Plan: The patient was seen and evaluated by Dr. Varela. He has been stable from the pulmonary standpoint. We'll continue to titrate down the FiO2 will maintaining O2 saturations greater than 90%. The plan is for Dobbhoff tube insertion by GI services for nutritional support. We will continue with his current medications. Increase his activity as tolerated. Continue to encourage use the incentive spirometer and cough and deep breathing exercises. We'll continue to follow. I, the cosigning physician, performed a history & physical examination of the patient. Lungs sounds with bilateral scattered rhonchi. Maintaining good O2 saturations in the 90s on 8 L high flow nasal cannula. I discussed the assessment and plan of care with my nurse practitioner, Octavia Wu. I attest to the above note as dictated by her.
[2018-05-14] MEDS: METOPROLOL TARTRATE 50 MG TAB PO SCH ×3 (14:56→21:35)
[2018-05-14] MEDS: PANTOPRAZOLE 40 MG/10 ML VIAL IVP SCH (14:56)
[2018-05-14] MEDS: PYRIDOXINE 50 MG TAB PO SCH (14:58)
--- NOTE | 2018-05-14 15:46 | P.PCN ---
Date of Procedure: 05/14/18 Description of Procedure: BRIEF HISTORY: Patient is a 77-year-old, pleasant, male patient who initially presented with symptoms of a GI bleed and coagulopathy. He had an EGD earlier his hospital course which was significant for esophageal trauma from NG tube placement and small duodenal ulcers. The patient has been unable to obtain adequate nutrition and has failed numerous fluoroscopic video swallow evaluations with evidence of microaspiration. PERFORMED: Esophagogastroduodenoscopy with placement of a Dobbhoff tube. PREOPERATIVE DIAGNOSIS: Oropharyngeal dysphagia with evidence of microaspiration on video swallowing evaluation. IV sedation per anesthesia. PROCEDURE: After informed consent was obtained, the patient was brought into the endoscopy unit. IV sedation was administered by Anesthesia under continuous monitoring. Initially the Olympus GIF-160 video endoscope was inserted into the mouth. Esophagus intubated without any difficulty. It was gradually advanced into the stomach and duodenum and carefully examined. The bulb and the second part of the duodenum appeared normal similar to prior evaluations with evidence of erythema and small superficial ulcerations. The scope at this time was withdrawn to the stomach, adequately insufflated with air, and upon careful examination, mucosa of the antrum, body, cardia and the fundus appeared normal. The scope was then withdrawn into the esophagus. The GE junction was located at 45 cm from the incisors. The esophagus appeared normal with previous seen NG trauma no longer noted. Scope was then withdrawn into the mouth and under visual guidance a Dobbhoff tube was placed into the patient's esophagus. Endoscope was then reinserted through the patient's esophagus into his stomach and the Dobbhoff tube was snared and pushed into the duodenum. IMPRESSION: 1. Successful placement of Dobbhoff tube. 2. Duodenal erythema and erosions as seen previously on EGD with no evidence of active bleeding. RECOMMENDATIONS: The findings of this examination were discussed with the patient and his family. At this time the patient is being sent back to medical for what is safe to use the Dobbhoff tube as needed for feedings. The patient' s swallowing improves the tube can be removed as per recommendations by speech language pathology continue PPI therapy as previously ordered after last endoscopic evaluation.
[2018-05-14 16:35] LABS: Glucose,Whole Blood 156 mg/dL (75-99)
[2018-05-14] MEDS: DEXTROSE 5% IN WATER 1,000 ML IV SCH (17:48)
--- NOTE | 2018-05-14 19:49 | PN ---
PROGRESS NOTE This patient was admitted with GI the bleeding and low hemoglobin. The patient had a persistent nausea and vomiting yesterday and the patient underwent a feeding tube placement today. First and second heart sounds are normal. Lungs are clear to auscultation and percussion. Patient's heart rate remains in the 90-100. Once oral medications started, the patient's Lopressor and amiodarone can be resumed and I would recommend to start the patient on Eliquis 5 mg b.i.d., instead of Coumadin. MMODL / IJN: [id number] /
[2018-05-14 21:21] LABS: Glucose,Whole Blood 88 mg/dL (75-99)
--- NOTE | 2018-05-15 02:11 | P.PN ---
Subjective Progress Note Date: 05/14/18 Principal diagnosis: GI bleed Patient is a 77-year-old male with a known history of Atrial Fibrillation, prostate and bladder Cancer, Myocardial Infarction ([place]) was initially admitted to the hospital on 05/04/2018 due to GI bleed. Patient had EGD done at the time and showed no active bleeding. Patient became hypotensive and went into hypoxic respiratory failure and was transferred to MICU. Patient was subsequently extubated and transferred to select specialty. Patient does have a history of chronic alcohol abuse and coagulopathy. His renal function is much improved now. Urine culture showed E. coli. Otherwise patient has generalized weakness and paste elevation. 05/13/2018 Patient denied any complaints of chest pain. Shortness of breath is stable. Patient has worsening shortness of breath last night and was given IV Lasix. Continue with hydration gently. Patient is requiring high flow oxygen via nasal cannula. Otherwise patient is nothing by mouth and failed swallow evaluation. GI is planning for EGD and Dobbhoff placement tomorrow. Patient is on antibiotics in the form of Levaquin. Urine culture showed E. coli. Patient is on amiodarone drip as well for atrial fibrillation.. 05/14/2018 Patient is more awake and oriented today. Able to come and get properly. Part spreading in physical therapy. Hemoglobin is stable otherwise. Patient is being continued on antibiotics in the form of Levaquin. Pulmonary and cardiology is following. Patient is maintained on amiodarone drip for atrial fibrillation. GI is planning for Dobbhoff tube insertion today afternoon. We will consider swallow evaluation again possibly on Thursday. Active Medications Generic Name Dose Route Start Last Admin Trade Name Freq PRN Reason Stop Dose Admin Acetaminophen 650 mg 05/04/18 20:57 Tylenol Tab PO Q4HR PRN Fever and/or Mild Pain Albuterol/Ipratropium 3 ml 05/05/18 02:21 05/13/18 20:07 Duoneb 0.5 Mg-3 Mg/3 Ml Soln INHALATION 3 ml RT-Q2H PRN Administration Shortness Of Breath Or Wheezing Dextrose/Water 1,000 mls @ 50 mls/hr 05/10/18 15:30 05/13/18 23:07 Dextrose 5%-Water Iv Soln IV 50 mls/hr .Q20H [facility] Administration Levofloxacin/Dextrose 250 mg/ 50 mls @ 50 mls/hr 05/12/18 09:00 05/13/18 09: 16 IV Solution IVPB 50 mls/hr Q24H [facility] Administration Amiodarone HCl 450 mg/ 250 mls @ 16.66 mls/hr 05/13/18 13:46 05/13/18 14:19 Dextrose/Water IV 0.5 mg/min .Q15H1M [facility] 16.66 mls/hr Administration 0.5 MG/MIN Insulin Aspart 0 unit 05/09/18 21:00 05/13/18 21:27 Novolog SQ Not Given ACHS [facility] Protocol Metoclopramide HCl 10 mg 05/12/18 11:59 05/12/18 12:26 Reglan IVP 10 mg Q6HR PRN Administration Vomiting Metoprolol Tartrate 100 mg 05/11/18 22:00 05/13/18 20:33 Lopressor PO Not Given TID [facility] Naloxone HCl 0.2 mg 05/04/18 20:57 Narcan IV Q2M PRN Opioid Reversal Nitroglycerin 1 inch 05/10/18 12:00 05/13/18 23:05 Nitro-Bid Oint TOPICAL 1 inch Q6HR [facility] Administration Ondansetron HCl 4 mg 05/11/18 21:03 05/12/18 18:49 Zofran IVP 4 mg Q6HR PRN Administration Nausea And Vomiting Pantoprazole Sodium 40 mg 05/13/18 09:00 05/13/18 09:17 Protonix IVP 40 mg DAILY [facility] Administration Prochlorperazine Maleate 10 mg 05/12/18 11:57 05/12/18 15:44 Compazine PO 10 mg Q6HR PRN Administration Nausea And Vomiting Pyridoxine HCl 100 mg 05/05/18 15:00 05/13/18 14:58 Vitamin B-6 PO Not Given DAILY@1500 [facility] Objective - Vital Signs Vital signs: Vital Signs Temp 97.4 F L 05/14/18 09:42 Pulse 77 05/14/18 11:54 Resp 18 05/14/18 09:42 BP 135/68 05/14/18 09:42 Pulse Ox 97 05/14/18 09:42 Intake & Output 05/13/18 05/14/18 05/14/18 18:59 06:59 18:59 Intake Total 250 211.027 400.475 Output Total 400 1550 400 Balance -150 -1338.973 0.475 Weight 103 kg 101 kg 101 kg Intake: IV 200 Intake, IV Titration 250 211.027 200.475 Amount Amiodarone 450 mg In 211.027 200.475 Dextrose 5% in Water 250 ml @ 0.5 MG/MIN 16.66 mls /hr IV .Q15H1M [facility] Rx#: [id number] Amiodarone 450 mg In 250 Dextrose 5% in Water 250 ml @ 1 MG/MIN 33.33 mls/ hr IV .Q7H31M [facility] Rx#: [id number] Output: Urine 400 1550 400 Right Lower Abdomen 100 Other: Voiding Method Ileal Conduit (Right) Ileal Conduit (Right) # Bowel Movements 0 ABP, PAP, CO, CI - Last Documented Arterial Blood Pressure 137/47 - Exam PHYSICAL EXAMINATION: Patient is lying in the bed comfortably, no acute distress, awake alert and oriented.. HEENT: Normocephalic. Neck is supple. Pupils reactive. Nostrils clear. Oral cavity is moist. Ears reveal no drainage. Neck reveals no JVD, carotid bruits, or thyromegaly. CHEST EXAMINATION: Trachea is central. Symmetrical expansion. Bilateral diffuse rhonchi and basilar crackles.. CARDIAC: Normal S1, S2 with no gallops. No murmurs . Irregular rhythm. ABDOMEN: Soft. Bowel sounds normal. No organomegaly. No abdominal bruits. Extremities: reveal no edema. No clubbing or cyanosis Neurologically awake, alert, oriented x3 with well-coordinated movements. No focal deficits noted Skin: No rash or skin lesions. Psychiatric: Coperative. Nonsuicidal Musculoskeletal: No joint swelling or deformity. Normal range of motion. - Labs CBC & Chem 7: 05/14/18 05:39 05/14/18 05:39 Labs: Abnormal Lab Results - Last 24 Hours (Table) 05/13/18 05/14/18 05/14/18 Range/Units 20:36 05:39 05:39 RBC 2.91 L (4.30-5.90) m/uL Hgb 8.2 L (13.0-17.5) gm/dL Hct 26.4 L (39.0-53.0) % RDW 18.4 H (11.5-15.5) % Plt Count 114 L (150-450) k/uL Lymphocytes # 0.9 L (1.0-4.8) k/uL Monocytes # 1.1 H (0-1.0) k/uL Sodium 146 H (137-145) mmol/L Potassium 3.3 L (3.5-5.1) mmol/L Chloride 114 H (98-107) mmol/L BUN 30 H (9-20) mg/dL Creatinine 1.36 H (0.66-1.25) mg/dL Glucose 116 H (74-99) mg/dL POC Glucose (mg/dL) 135 H (75-99) mg/dL 18 05/14/18 Range/Units 06:06 11:34 RBC (4.30-5.90) m/uL Hgb (13.0-17.5) gm/dL Hct (39.0-53.0) % RDW (11.5-15.5) % Plt Count (150-450) k/uL Lymphocytes # (1.0-4.8) k/uL Monocytes # (0-1.0) k/uL Sodium (137-145) mmol/L Potassium (3.5-5.1) mmol/L Chloride (98-107) mmol/L BUN (9-20) mg/dL Creatinine (0.66-1.25) mg/dL Glucose (74-99) mg/dL POC Glucose (mg/dL) 135 H 132 H (75-99) mg/dL Assessment and Plan Assessment: Acute blood loss anemia secondary to GI bleed. with negative EGD Acute hypotension secondary to above, resolved. Acute kidney injury likely prerenal improved. E. coli urinary tract infection Chronic atrial fibrillation on anticoagulation and amiodarone IV Alcoholic liver disease and Coumadin induced coagulopathy History of bladder/prostate cancer. Status post urostomy placement Metabolic acidosis, resolved Coronary artery disease, status post previous myocardial infarction. Cardiomyopathy with an ejection fraction of 25-30% Ventilator-dependent respiratory failure, resolved Failed swallow evaluation. Medical debility Plan: Patient be continued on IV hydration and GI is planning for duboff tube placement due to failed swallow evaluation. Continue the antibiotics. Cardiology and pulmonary is following. Monitor H&H and further recommendations based on the clinical course. Time with Patient: Greater than 30
[2018-05-15 06:07] LABS: Glucose,Whole Blood 122 mg/dL (75-99)
[2018-05-15 06:26] LABS: Calcium 9.5 mg/dL (8.4-10.2); Magnesium 1.8 mg/dL (1.6-2.3); Potassium 4.4 mmol/L (3.5-5.1)
[2018-05-15] MEDS: NITROGLYCERIN OINT 1 INCH/GM PACKET TOPICAL SCH (06:36)
[2018-05-15] MEDS: AMIODARONE 450 MG in DEXTROSE 5% IN WATER 250 ML IV SCH ×2 (06:36)
[2018-05-15] MEDS: INSULIN ASPART 100 UNIT/ML 1 ML 10 ML VIAL SQ SCH ×4 (06:36→21:18)
[2018-05-15] MEDS: IPRATROPIUM-ALBUTEROL 3 ML NEB INHALATION PRN ×4 (07:59→21:37)
--- NOTE | 2018-05-15 08:21 | XR ---
EXAMINATION TYPE: XR chest 1V portable DATE OF EXAM: 05/15/2018 HISTORY: verify tube placement. REFERENCE: Previous study dated 05/12/2018. FINDINGS: The patient right internal jugular catheter remains in place. Its tip is in the superior ve na cava. There is worsening bibasilar airspace disease. The heart is enlarged. There are small, bilateral effu sions. IMPRESSION: 1. CARDIOMEGALY. 2. WORSENING BIBASILAR AIRSPACE DISEASE. 3. SMALL, BILATERAL EFFUSIONS.
[2018-05-15] MEDS: PANTOPRAZOLE 40 MG/10 ML VIAL IVP SCH (10:05)
[2018-05-15] MEDS: LEVOFLOXACIN 250MG-D5W PMX 250 MG in DEXTROSE/WATER 1 50ML.BAG IVPB SCH (10:23)
[2018-05-15] MEDS: DEXTROSE 5% IN WATER 1,000 ML IV SCH ×2 (11:14→23:27)
[2018-05-15] MEDS: METOPROLOL TARTRATE 50 MG TAB PO SCH ×3 (11:14→23:21)
--- NOTE | 2018-05-15 11:19 | P.PN ---
Subjective Progress Note Date: 05/15/18 Principal diagnosis: This is a 77-year-old male seen in consultation initially with acute kidney injury which is improving acute kidney injury is deemed to be from severe anemia hypotension he has a duodenal ulcer. His other problems or hydronephrosis hypokalemia and hyponatremia. He has got a Rocha catheter. Last 24 hour urine output is 1800 mL He has a NG tube feeding. He is known with alcoholism, COPD and During this hospitalization he he had required intubation. He was also in atrial fibrillation but has reverted to normal sinus rhythm. Objective - Vital Signs Vital signs: Vital Signs Temp 98.4 F 05/15/18 04:00 Pulse 88 05/15/18 10:29 Resp 20 05/15/18 10:29 BP 99/57 05/15/18 10:29 Pulse Ox 96 05/15/18 10:29 Intake & Output 05/14/18 05/15/18 05/15/18 18:59 06:59 18:59 Intake Total 448.475 180 140 Output Total 400 800 Balance 48.475 -620 140 Weight 101 kg 103.5 kg Intake: IV 200 Intake, IV Titration 200.475 Amount Amiodarone 450 mg In 200.475 Dextrose 5% in Water 250 ml @ 0.5 MG/MIN 16.66 mls /hr IV .Q15H1M [facility] Rx#: [id number] Tube Feeding 48 180 140 Output: Urine 400 800 Other: Voiding Method Ileal Conduit (Right) Ileal Conduit (Right) Ileal Conduit ( Right) # Bowel Movements 0 ABP, PAP, CO, CI - Last Documented Arterial Blood Pressure 137/47 Exam she is awake alert oriented. HEENT exam no JVP neck is supple no facial asymmetry has an NG tube. Lung exam clear to auscultation fairly good air entry bilaterally. No adventitious sounds. Heart sounds are unremarkable with normal sinus rhythm. Abdomen is soft nontender no organomegaly ascites masses Extremity exam reveals no edema Neurologically awake alert. - Labs CBC & Chem 7: 05/14/18 05:39 05/15/18 05:56 Labs: Abnormal Lab Results - Last 24 Hours (Table) 05/14/18 05/14/18 05/15/18 Range/Units 11:34 16:34 05:56 Chloride 111 H (98-107) mmol/L BUN 25 H (9-20) mg/dL Creatinine 1.30 H (0.66-1.25) mg/dL Glucose 111 H (74-99) mg/dL POC Glucose (mg/dL) 132 H 156 H (75-99) mg/dL 05/15/18 Range/Units 06:05 Chloride (98-107) mmol/L BUN (9-20) mg/dL Creatinine (0.66-1.25) mg/dL Glucose (74-99) mg/dL POC Glucose (mg/dL) 122 H (75-99) mg/dL Assessment and Plan Assessment: Impression 1. Acute kidney injury secondary to intravascular volume depletion from vomiting. Creatinine down to baseline of 1.16. 2. All other nephrological issues are resolved. We will sign off thank you for this consultation.
--- NOTE | 2018-05-15 11:51 | P.PN ---
Subjective Progress Note Date: 05/15/18 Principal diagnosis: GI bleed, alcoholism, acute kidney injury Progress note dated 05/10/2018 This is a 77-year-old male, looks much older than his stated age, was admitted on May 04 for a GI bleed. The patient did have an EGD which was apparently negative for active bleeding. He also has a history of acute kidney injury low blood pressure and atrial fibrillation. He was X Dave 2 days ago. The patient 's currently on O2 at 4 L by nasal cannula. The patient's currently dextrose IV running at 80. It will be turned down to KVO. He is also on amiodarone at 0.5 mg/m. Since being here, the patient has received 6 units of PRBCs and 1 unit of fresh frozen plasma. CODE STATUS has not been addressed and should be addressed. Currently, the patient is a full code. The patient's very lethargic but does arouse. He mumbles words. Nothing is understandable. Apparently he's been this way since he was admitted and since he was extubated. Chest x-ray is consistent with mild fluid overload. I did have the opportunity to speak to the patient's daughter. She will talk to her brother and sister and make some decisions about CODE STATUS. She will get adequate dose later today. Progress note dated 05/11/2018 77-year-old male who actually looks much better today. He was admitted on May 04 for GI bleed. The patient did have an EGD which was negative for active bleeding. He also has a history of acute kidney injury, hypotension, and atrial fibrillation. The patient was extubated 2 days ago. Currently, the patient is on room air. The patient's IV is dextrose at 50 mL an hour he is currently on esmolol at 50 g and amiodarone at 1 mg. The patient declares to me that he would not want to be on life support. I did talk to the daughter about that. Currently he is in atrial fibrillation with a rate of 103. The patient looks much better today than he did yesterday. Chest x-rays consistent with fluid overload. He did fail his modified barium swallow yesterday but they 're coming back today to recheck him. He denies any pain or discomfort. Progress note dated 05/13/2018 77-year-old male who actually is much improved. He was admitted back on 2017 for GI bleed. The patient did have an EGD which was negative for active bleeding. He has a history of acute kidney injury, hypotension, which is resolved, and atrial fibrillation. The patient was extubated about 4 days ago. The patient is currently doing reasonably well. Some question about the patient's CODE STATUS. I asked the patient and his 2 daughters to get together and talk about it. He is not sure what he wants. Currently, he is a full code. Another issue with this patient as he is not receiving any nutrition. We will see if GI or interventional radiology complaining Dobbhoff so we can feed him enterally. If that's not possible, he does have a central line in place and we could see him by TPN. He has failed his modified barium swallow. Other than that, he is doing reasonably well and has improved. The patient is seen again today 05/14/2018 in follow-up on the selective care unit. He is currently awake and alert in no acute distress. He sitting up in a chair at the bedside. He denies any worsening shortness of breath, cough or congestion. He does continue to require 8 L high flow nasal cannula to maintain O2 saturations in the 90s. He's been afebrile. The plan is for GI services to insert a Dobbhoff tube for nutritional support. The patient is seen again today 05/15/2018 in follow-up on the selective care unit. He is currently sitting up in a chair at the bedside. He is awake and alert in no acute distress. He did undergo Dobbhoff placement and is currently receiving Vital AF 1.2 with a goal of 80 MLS per hour for nutritional support. He currently denies any worsening shortness of breath. He continues with a loose nonproductive cough. Chest x-ray does suggest some worsening bibasilar airspace disease and small bilateral pleural effusions. Suspect some chronic aspiration. He is currently on Levaquin and DuoNeb inhalations. We'll add Symbicort and IV Solu-Medrol. Objective - Vital Signs Vital signs: Vital Signs Temp 98.4 F 05/15/18 04:00 Pulse 96 05/15/18 11:31 Resp 20 05/15/18 10:29 BP 99/57 05/15/18 10:29 Pulse Ox 96 05/15/18 10:29 Intake & Output 05/14/18 05/15/18 05/15/18 18:59 06:59 18:59 Intake Total 448.475 180 140 Output Total 400 800 Balance 48.475 -620 140 Weight 101 kg 103.5 kg Intake: IV 200 Intake, IV Titration 200.475 Amount Amiodarone 450 mg In 200.475 Dextrose 5% in Water 250 ml @ 0.5 MG/MIN 16.66 mls /hr IV .Q15H1M [facility] Rx#: [id number] Tube Feeding 48 180 140 Output: Urine 400 800 Other: Voiding Method Ileal Conduit (Right) Ileal Conduit (Right) Ileal Conduit ( Right) # Bowel Movements 0 1 ABP, PAP, CO, CI - Last Documented Arterial Blood Pressure 137/47 - Exam No apparent distress, the patient is much more awake and alert today, oriented 3, still requiring 8 L high flow nasal cannula. HEENT examination is grossly unremarkable. Mucous membranes are moist. Neck supple. Full range of motion. No adenopathy thyromegaly or neck vein distention. Cardiovascular examination reveals a irregular rhythm and rate. He is in atrial fibrillation at a rate of 103. S1-S2 normal. No heart murmur noted. Lungs reveal diminished breath sounds throughout. Some scattered bilateral rhonchi. Bibasilar crackles. Abdomen soft bowel sounds are heard. No masses or tenderness. Extremities are intact. No cyanosis clubbing or edema. Skin is without rash or lesion. Neurologic examination is brief but nonfocal. - Labs CBC & Chem 7: 05/14/18 05:39 05/15/18 05:56 Labs: Abnormal Lab Results - Last 24 Hours (Table) 05/14/18 05/15/18 05/15/18 Range/Units 16:34 05:56 06:05 Chloride 111 H (98-107) mmol/L BUN 25 H (9-20) mg/dL Creatinine 1.30 H (0.66-1.25) mg/dL Glucose 111 H (74-99) mg/dL POC Glucose (mg/dL) 156 H 122 H (75-99) mg/dL Assessment and Plan Assessment: Assessment Acute GI bleed, exacerbated by alcohol induced coagulopathy, with negative EGD Acute hypoxic respiratory failure secondary to suspected aspiration pneumonia. Acute kidney injury Acute blood loss anemia Chronic atrial fibrillation Alcoholic liver disease induced coagulopathy History of bladder/prostate cancer Metabolic acidosis, resolved Coronary artery disease, status post previous myocardial infarction. Cardiomyopathy with an ejection fraction of 25-30% Mental status changes Ventilator-dependent respiratory failure, resolved E. coli urinary tract infection Inadequate swallowing mechanism with likely aspiration Plan: The patient was seen and evaluated by Dr. Varela. Chest x-ray and labs were reviewed. He continues to require high flow nasal cannula at 8 L/m. We'll continue with DuoNeb inhalations, add Symbicort, add IV Solu-Medrol. Continue Levaquin. We'll continue to titrate down the FiO2 will maintaining O2 saturations greater than 90%. He is now receiving enteral nutrition via the Dobbhoff. Increase his activity as tolerated. Continue to encourage use the incentive spirometer and cough and deep breathing exercises. We'll continue to follow. I, the cosigning physician, performed a history & physical examination of the patient. Lungs sounds with bilateral scattered rhonchi, crackles in the bases. Maintaining good O2 saturations in the 90s on 8 L high flow nasal cannula. I discussed the assessment and plan of care with my nurse practitioner, Octavia Wu. I attest to the above note as dictated by her.
[2018-05-15] MEDS: AMIODARONE 200 MG TAB PO SCH ×3 (12:03→20:34)
[2018-05-15] MEDS: methylPREDNISolone SOD SUCCI 40 MG/ML 1 ML VIAL IV SCH ×3 (12:06→23:21)
[2018-05-15 12:19] LABS: Glucose,Whole Blood 150 mg/dL (75-99)
--- NOTE | 2018-05-15 13:19 | P.PN ---
Subjective Progress Note Date: 05/15/18 This is a 77-year-old male, looks much older than his stated age, was admitted on May 04 for a GI bleed. The patient did have an EGD which was apparently negative for active bleeding. He also has a history of acute kidney injury low blood pressure and atrial fibrillation. Patient continues to be in atrial fibrillation today the heart rate is in the 80s. He continues to be on amiodarone. Patient had several episodes today of vomiting, he is very nauseated. We do not feel this is secondary to the amiodarone. Our recommendations at this time are to continue with the amiodarone. Blood pressure 122/70, heart rate in the 80s, afebrile, 90% on room air. The patient did have a repeat modified barium swallow and he was noted to be aspirating. IV continues at 75 mL per hour. No recurrent GI bleeding. 05/13/2018 Patient was seen and examined this morning, currently nothing by mouth because of suspicion of aspiration. Continues to be on IV amiodarone drip. Patient is in atrial fibrillation with a heart rate in the 70s to 80s. Continues to require high flow oxygen. Blood pressure 110/50 with a heart rate in the 70s, 90% on 10 L high flow. BUN 35 today and creatinine 1.6. 05/15/2018 Patient seen and examined this morning, had a feeding tube placed. We will change him over to oral beta radha and amiodarone today. His heart rate is overall stable in the 80s. Objective - Vital Signs Vital signs: Vital Signs Temp 98.4 F 05/15/18 04:00 Pulse 97 05/15/18 13:04 Resp 18 05/15/18 13:04 BP 129/59 05/15/18 13:04 Pulse Ox 95 05/15/18 13:04 Intake & Output 05/14/18 05/15/18 05/15/18 18:59 06:59 18:59 Intake Total 448.475 180 140 Output Total 400 800 Balance 48.475 -620 140 Weight 101 kg 103.5 kg 104 kg Intake: IV 200 Intake, IV Titration 200.475 Amount Amiodarone 450 mg In 200.475 Dextrose 5% in Water 250 ml @ 0.5 MG/MIN 16.66 mls /hr IV .Q15H1M [facility] Rx#: [id number] Tube Feeding 48 180 140 Output: Urine 400 800 Other: Voiding Method Ileal Conduit (Right) Ileal Conduit (Right) Ileal Conduit ( Right) # Bowel Movements 0 1 ABP, PAP, CO, CI - Last Documented Arterial Blood Pressure 137/47 - Exam No apparent distress, the patient is much more awake and alert today, oriented 3, not requiring supplemental oxygen. HEENT examination is grossly unremarkable. Mucous membranes are moist. Neck supple. Full range of motion. No adenopathy thyromegaly or neck vein distention. Cardiovascular examination reveals a irregular rhythm and rate. He is in atrial fibrillation at a rate of 80. S1-S2 normal. No heart murmur noted. Lungs reveal diminished breath sounds throughout. Some scattered bilateral rhonchi. No wheezes or crackles. Abdomen soft bowel sounds are heard. No masses or tenderness. Extremities are intact. No cyanosis clubbing or edema. Skin is without rash or lesion. Neurologic examination is brief but nonfocal. - Labs CBC & Chem 7: 05/14/18 05:39 05/15/18 05:56 Labs: Abnormal Lab Results - Last 24 Hours (Table) 05/14/18 05/15/18 05/15/18 Range/Units 16:34 05:56 06:05 Chloride 111 H (98-107) mmol/L BUN 25 H (9-20) mg/dL Creatinine 1.30 H (0.66-1.25) mg/dL Glucose 111 H (74-99) mg/dL POC Glucose (mg/dL) 156 H 122 H (75-99) mg/dL 05/15/18 Range/Units 12:16 Chloride (98-107) mmol/L BUN (9-20) mg/dL Creatinine (0.66-1.25) mg/dL Glucose (74-99) mg/dL POC Glucose (mg/dL) 150 H (75-99) mg/dL Assessment and Plan Plan: Assessment: #1. Acute blood loss anemia, secondary to GI bleeding #2. Hypotension, weakness, falls, black tarry stools related to the above #3. Altered mentation, likely related to hypovolemia, and possibly related to sepsis #4. Leukocytosis, rule out sepsis #5. Coumadin induced coagulopathy #6. Chronic atrial fibrillation, on chronic anticoagulation, on IV amiodarone #7. Acute kidney injury related to acute blood loss anemia and hypotension #8. Lactic acidosis, rule out sepsis #9. History of bladder and prostate cancer, status post urostomy placement #10. Previous history of myocardial infarction #11. Dysphasia #12. E. coli urinary tract infection Plan: From cardiology's perspective, we'll discontinue the IV amiodarone and start patient on oral feeding tube in place. Continue oral beta blockers. DNP note has been reviewed, I agree with a documented findings and plan of care. Patient was seen and examined.
[2018-05-15 16:59] LABS: Glucose,Whole Blood 198 mg/dL (75-99)
[2018-05-15] MEDS: PYRIDOXINE 50 MG TAB PO SCH (17:08)
[2018-05-15 20:55] LABS: Glucose,Whole Blood 152 mg/dL (75-99)
[2018-05-15] MEDS: SYMBICORT 160-4.5 MCG INHALER INHALATION SCH ×2 (21:37→21:55)
[2018-05-16 05:37] LABS: Glucose,Whole Blood 165 mg/dL (75-99)
[2018-05-16] MEDS: INSULIN ASPART 100 UNIT/ML 1 ML 10 ML VIAL SQ SCH ×4 (06:36→21:05)
[2018-05-16] MEDS: SYMBICORT 160-4.5 MCG INHALER INHALATION SCH ×2 (07:54→21:19)
[2018-05-16] MEDS: LEVOFLOXACIN 250MG-D5W PMX 250 MG in DEXTROSE/WATER 1 50ML.BAG IVPB SCH (09:15)
[2018-05-16] MEDS: methylPREDNISolone SOD SUCCI 40 MG/ML 1 ML VIAL IV SCH ×3 (09:16→23:24)
[2018-05-16] MEDS: AMIODARONE 200 MG TAB PO SCH ×3 (09:16→21:35)
[2018-05-16] MEDS: METOPROLOL TARTRATE 50 MG TAB PO SCH ×3 (09:17→21:35)
[2018-05-16] MEDS: PANTOPRAZOLE 40 MG/10 ML VIAL IVP SCH (09:17)
[2018-05-16] MEDS ORDERED: FUROSEMIDE 20 MG TAB PO STA (10:28)
--- NOTE | 2018-05-16 10:29 | P.PN ---
Subjective Progress Note Date: 05/16/18 Principal diagnosis: This is a 77-year-old male seen in consultation initially with acute kidney injury which is improving, His acute kidney injury is deemed to be from severe anemia, atrial fibrillation chronically and hypotension,and he has a duodenal ulcer. His other problems are Bilat hydronephrosis seen on US 05/05/18 here likely from the post cystectomy and creation off IV loop urostomy. He also had hypokalemia and hyponatremia. Last 24 hour urine output is 825 mL. He haD a NG tube, this has been discontinued and he is allowed to eat as of this morning 05/16/2080 He is known with alcoholism, COPD and During this hospitalization he he had required intubation. On examination this morning he is awake alert. He denies any fever chills. No shortness of breath. He has a mild cough. No abdominal pain. He had a bowel movement which was normal Objective - Vital Signs Vital signs: Vital Signs Temp 97.6 F 05/16/18 09:12 Pulse 92 05/16/18 09:12 Resp 18 05/16/18 09:12 BP 115/78 05/16/18 09:12 Pulse Ox 97 05/16/18 09:12 Intake & Output 05/15/18 05/16/18 05/16/18 18:59 06:59 18:59 Intake Total 280 360 Output Total 825 Balance -545 360 Weight 104 kg 101 kg Intake: Tube Feeding 280 360 Output: Urine 825 Other: Voiding Method Ileal Conduit (Right) Ileal Conduit (Right) Ileal Conduit ( Right) # Bowel Movements 1 ABP, PAP, CO, CI - Last Documented Arterial Blood Pressure 137/47 On examination is awake alert oriented. Somewhat pale HEENT exam no JVP but veins are noted at about 5 cm. No nodes neck is supple no facial asymmetry. Lungs are significant for some mild expiratory wheeze and occasional coarse crackle. Good air entry otherwise. Heart sounds are unremarkable for any murmur rub gallop Abdomen soft nontender no organomegaly ascites masses she has a highly low loop urostomy. Extremity exam reveals no edema. Neurologically awake alert oriented. - Labs CBC & Chem 7: 05/14/18 05:39 05/15/18 05:56 Labs: Abnormal Lab Results - Last 24 Hours (Table) 05/15/18 05/15/18 05/15/18 Range/Units 12:16 16:58 20:54 POC Glucose (mg/dL) 150 H 198 H 152 H (75-99) mg/dL 05/16/18 Range/Units 05:36 POC Glucose (mg/dL) 165 H (75-99) mg/dL Assessment and Plan Assessment: Impression 1. Acute kidney injury secondary to intravascular volume depletion from vomiting, low blood pressure and atrial fibrillation. Creatinine down to baseline of 1.3. . 2. All other nephrological issues are resolved. 3. Status post ILEAL Loop urostomy, with bilateral hydronephrosis seen on ultrasound this admission, dated 05/06/2018. 4. History of EtOH abuse. 5. Anemia with hemoglobin 8.2 down from 9.3. 6. Worsening chest x-ray possible congestive heart failure. Recommendation. 1. Discontinue IV fluids. 2. We'll give him 1 dose of Lasix 20 mg and watch his labs.
[2018-05-16] MEDS: IPRATROPIUM-ALBUTEROL 3 ML NEB INHALATION PRN ×3 (11:21→21:19)
--- NOTE | 2018-05-16 11:23 | P.PN ---
Subjective Progress Note Date: 05/16/18 Principal diagnosis: GI bleed, alcoholism, acute kidney injury Progress note dated 05/10/2018 This is a 77-year-old male, looks much older than his stated age, was admitted on May 04 for a GI bleed. The patient did have an EGD which was apparently negative for active bleeding. He also has a history of acute kidney injury low blood pressure and atrial fibrillation. He was X Dave 2 days ago. The patient 's currently on O2 at 4 L by nasal cannula. The patient's currently dextrose IV running at 80. It will be turned down to KVO. He is also on amiodarone at 0.5 mg/m. Since being here, the patient has received 6 units of PRBCs and 1 unit of fresh frozen plasma. CODE STATUS has not been addressed and should be addressed. Currently, the patient is a full code. The patient's very lethargic but does arouse. He mumbles words. Nothing is understandable. Apparently he's been this way since he was admitted and since he was extubated. Chest x-ray is consistent with mild fluid overload. I did have the opportunity to speak to the patient's daughter. She will talk to her brother and sister and make some decisions about CODE STATUS. She will get adequate dose later today. Progress note dated 05/11/2018 77-year-old male who actually looks much better today. He was admitted on May 04 for GI bleed. The patient did have an EGD which was negative for active bleeding. He also has a history of acute kidney injury, hypotension, and atrial fibrillation. The patient was extubated 2 days ago. Currently, the patient is on room air. The patient's IV is dextrose at 50 mL an hour he is currently on esmolol at 50 g and amiodarone at 1 mg. The patient declares to me that he would not want to be on life support. I did talk to the daughter about that. Currently he is in atrial fibrillation with a rate of 103. The patient looks much better today than he did yesterday. Chest x-rays consistent with fluid overload. He did fail his modified barium swallow yesterday but they 're coming back today to recheck him. He denies any pain or discomfort. Progress note dated 05/13/2018 77-year-old male who actually is much improved. He was admitted back on 2017 for GI bleed. The patient did have an EGD which was negative for active bleeding. He has a history of acute kidney injury, hypotension, which is resolved, and atrial fibrillation. The patient was extubated about 4 days ago. The patient is currently doing reasonably well. Some question about the patient's CODE STATUS. I asked the patient and his 2 daughters to get together and talk about it. He is not sure what he wants. Currently, he is a full code. Another issue with this patient as he is not receiving any nutrition. We will see if GI or interventional radiology complaining Dobbhoff so we can feed him enterally. If that's not possible, he does have a central line in place and we could see him by TPN. He has failed his modified barium swallow. Other than that, he is doing reasonably well and has improved. Progress note dated 05/16/2018 77-year-old male who was in the ICU for a number days. He was admitted back on May 04 for GI bleed. An EGD was done and was negative for active bleeding. In addition, he has a history of acute kidney injury, hypotension, which is improved in atrial fibrillation. The patient was mechanically ventilated but extubated on May 09. The patient currently is a full code according to him and his parents. A Dobbhoff tube was placed by interventional radiology but unfortunately was pulled out by the patient last night. The patient is confused. Not exhibiting any signs or symptoms of respiratory difficulty. In fact, most of the time, he is not wearing his oxygen. His vital signs are reasonably stable with a temperature of 97.6 heart rate 90 respiratory rate 18 blood pressure 115/78 with a mean of 90 and 97% saturation on high flow oxygen of 4 L. No new labs to report on this patient. Objective - Vital Signs Vital signs: Vital Signs Temp 97.6 F 05/16/18 09:12 Pulse 92 05/16/18 09:12 Resp 18 05/16/18 09:12 BP 115/78 05/16/18 09:12 Pulse Ox 97 05/16/18 09:12 Intake & Output 05/15/18 05/16/18 05/16/18 18:59 06:59 18:59 Intake Total 280 360 Output Total 825 Balance -545 360 Weight 104 kg 101 kg Intake: Tube Feeding 280 360 Output: Urine 825 Other: Voiding Method Ileal Conduit (Right) Ileal Conduit (Right) Ileal Conduit ( Right) # Bowel Movements 1 ABP, PAP, CO, CI - Last Documented Arterial Blood Pressure 137/47 - Exam No apparent distress, the patient is much more awake and alert today, oriented 3, currently on 4 L nasal cannula.. HEENT examination is grossly unremarkable. Mucous membranes are moist. Neck supple. Full range of motion. No adenopathy thyromegaly or neck vein distention. Cardiovascular examination reveals a irregular rhythm and rate. He is in atrial fibrillation at a rate of 103. S1-S2 normal. No heart murmur noted. Lungs reveal diminished breath sounds throughout. Some scattered bilateral rhonchi. No wheezes or crackles. Abdomen soft bowel sounds are heard. No masses or tenderness. Extremities are intact. No cyanosis clubbing or edema. Skin is without rash or lesion. Neurologic examination is brief but nonfocal. - Labs CBC & Chem 7: 05/14/18 05:39 05/15/18 05:56 Labs: Abnormal Lab Results - Last 24 Hours (Table) 05/15/18 05/15/18 05/15/18 Range/Units 12:16 16:58 20:54 POC Glucose (mg/dL) 150 H 198 H 152 H (75-99) mg/dL 05/16/18 Range/Units 05:36 POC Glucose (mg/dL) 165 H (75-99) mg/dL Assessment and Plan Assessment: Assessment Acute GI bleed, exacerbated by alcohol induced coagulopathy, with negative EGD Acute hypotension, resolved. Acute kidney injury Acute blood loss anemia Chronic atrial fibrillation Alcoholic liver disease induced coagulopathy History of bladder/prostate cancer Metabolic acidosis, resolved Coronary artery disease, status post previous myocardial infarction. Cardiomyopathy with an ejection fraction of 25-30% Mental status changes Ventilator-dependent respiratory failure, resolved E. coli urinary tract infection Inadequate swallowing mechanism with likely aspiration Plan: Plan dated 05/10/2018 Chest x-ray is consistent with ongoing pulmonary venous congestion and small bilateral pleural effusions. The IV was turned down to KVO. The patient's currently on O2 at 4 L by nasal cannula and continues on amiodarone at 0.5 mg/ m. The patient has received 6 units of PRBCs and 1 unit of fresh frozen plasma. CODE STATUS absolutely needs to be addressed. White count 9.5 hemoglobin 7.9 hematocrit 25.9 and platelet count 228,000. Sodium 147 potassium 4 chloride is 119 CO2 27 BUN and creatinine were 59 and 1.90. Overall prognosis is very poor and I will have a discussion with the family soon. Medication list is reviewed and unnecessary medications including long- acting nitroglycerin and others are discontinued. Critical care time 33 minutes Chest x-rays consistent with pulmonary edema. The patient remains on esmolol and amiodarone. His mental status is improved dramatically. White count is 6.5 , hemoglobin 7.6, hematocrit 24.3 and platelet count was normal. Sodium and potassium normal, chloride 117, CO2 26, anion gap normal, BUN and creatinine were 50 and 1.80. Urine was positive for Escherichia coli which was sensitive to everything. Zosyn is discontinued and Levaquin is started. Unnecessary medications will be discontinued. Critical care time 34 minutes Progress note dated 05/13/2018 The patient continues to improve. The patient will require some form of nutrition. We'll attempt to place a Dobbhoff tube. We'll ask gastroenterology or interventional radiology to do this for us. If this is not possible, we will use the triple lumen as IV access for TPN. The patient has a very poor swallowing mechanism and likely aspirated. I'm also asking the patient to get together with his family especially his 2 daughters and decide about a CODE STATUS. He is going back and forth about this. Sodium is 145, potassium 4.2, chloride is 116, and CO2 content 22. BUN and creatinine are 35 and 1.60 respectively. Urine samples from May 05 were positive for Escherichia coli. Chest x-ray from May 12 shows congestive heart failure changes which are unchanged. Prognosis is guarded. Progress note dated 05/16/2018 The patient apparently pulled out his Dobbhoff tool last night. He currently remains on Symbicort 160/4.5, 2 puffs twice a day. In addition he is getting DuoNeb 4 times a day and when necessary as well as Solu-Medrol 40 mg every 8 hours. His respiratory issues seem to be improving. Chest x-ray from yesterday reveals cardiomegaly worsening bibasilar airspace disease and small effusions. This could be consistent with pneumonia and/or heart failure. The patient only positive cultures will be E. coli in the urinary tract. We will continue to follow make recommendations accordingly. We will get a chest x-ray in the morning. Time with Patient: Less than 30
[2018-05-16 12:05] LABS: Glucose,Whole Blood 124 mg/dL (75-99)
--- NOTE | 2018-05-16 13:33 | P.PN ---
Subjective Progress Note Date: 05/16/18 This is 72 fair old gentleman who was admitted to the hospital with GI bleeding. Patient also has a history of kidney failure and hypotension. He is intubated for atrial fibrillation. Patient was switched to by mouth amiodarone. Patient heart rate is controlled. His blood pressure is more stable. Patient has chronic shortness of breath and wheezing. He'll continue current medical therapy. Objective - Vital Signs Vital signs: Vital Signs Temp 97.6 F 05/16/18 09:12 Pulse 81 05/16/18 11:47 Resp 18 05/16/18 11:47 BP 142/77 05/16/18 11:47 Pulse Ox 94 L 05/16/18 11:47 Intake & Output 05/15/18 05/16/18 05/16/18 18:59 06:59 18:59 Intake Total 280 360 Output Total 825 Balance -545 360 Weight 104 kg 101 kg Intake: Tube Feeding 280 360 Output: Urine 825 Other: Voiding Method Ileal Conduit (Right) Ileal Conduit (Right) Ileal Conduit ( Right) # Bowel Movements 1 ABP, PAP, CO, CI - Last Documented Arterial Blood Pressure 137/47 - Exam GENERAL EXAM: Patient is alert and oriented and Appears to be mild distress HEENT: Normocephalic. Normal reaction of pupils, equal size, normal range of extraocular motion. No erythema or exudates in the throat. NECK: No masses, no nuchal rigidity. CHEST: No chest wall deformity. LUNGS: Expected wheezes or rhonchi HEART: [S1 and S2 normal Irregular heart sounds ABDOMEN: No hepatosplenomegaly, normal bowel sounds, no guarding or rigidity. SKIN: No rashes CENTRAL NERVOUS SYSTEM: No focal deficits. EXTREMITIES: [No cyanosis, clubbing or edema.]Accept default - Labs CBC & Chem 7: 05/14/18 05:39 05/15/18 05:56 Labs: Abnormal Lab Results - Last 24 Hours (Table) 05/15/18 05/15/18 05/16/18 Range/Units 16:58 20:54 05:36 POC Glucose (mg/dL) 198 H 152 H 165 H (75-99) mg/dL 05/16/18 Range/Units 12:00 POC Glucose (mg/dL) 124 H (75-99) mg/dL Assessment and Plan (1) Acute blood loss anemia Current Visit: Yes Status: Acute Code(s): D62 - ACUTE POSTHEMORRHAGIC ANEMIA SNOMED Code(s): 585679715 (2) Atrial fibrillation with RVR Current Visit: Yes Status: Acute Code(s): I48.91 - UNSPECIFIED ATRIAL FIBRILLATION SNOMED Code(s): 516629122388395 (3) Hypotension Current Visit: Yes Status: Acute Code(s): I95.9 - HYPOTENSION, UNSPECIFIED SNOMED Code(s): 36696667 Plan: Continue current medical therapy. We will follow
[2018-05-16] MEDS: PYRIDOXINE 50 MG TAB PO SCH (15:02)
[2018-05-16 16:55] LABS: Glucose,Whole Blood 238 mg/dL (75-99)
[2018-05-16 20:50] LABS: Glucose,Whole Blood 75 mg/dL (75-99)
--- NOTE | 2018-05-17 00:57 | P.PN ---
Subjective Progress Note Date: 05/15/18 Principal diagnosis: GI bleed Patient is a 77-year-old male with a known history of Atrial Fibrillation, prostate and bladder Cancer, Myocardial Infarction ([place]) was initially admitted to the hospital on 05/04/2018 due to GI bleed. Patient had EGD done at the time and showed no active bleeding. Patient became hypotensive and went into hypoxic respiratory failure and was transferred to MICU. Patient was subsequently extubated and transferred to select specialty. Patient does have a history of chronic alcohol abuse and coagulopathy. His renal function is much improved now. Urine culture showed E. coli. Otherwise patient has generalized weakness and paste elevation. 05/13/2018 Patient denied any complaints of chest pain. Shortness of breath is stable. Patient has worsening shortness of breath last night and was given IV Lasix. Continue with hydration gently. Patient is requiring high flow oxygen via nasal cannula. Otherwise patient is nothing by mouth and failed swallow evaluation. GI is planning for EGD and Dobbhoff placement tomorrow. Patient is on antibiotics in the form of Levaquin. Urine culture showed E. coli. Patient is on amiodarone drip as well for atrial fibrillation.. 05/14/2018 Patient is more awake and oriented today. Able to come and get properly. Part spreading in physical therapy. Hemoglobin is stable otherwise. Patient is being continued on antibiotics in the form of Levaquin. Pulmonary and cardiology is following. Patient is maintained on amiodarone drip for atrial fibrillation. GI is planning for Dobbhoff tube insertion today afternoon. We will consider swallow evaluation again possibly on Thursday. 05/15/2018 Patient denied any new complaints today. Feeding throughDobbhoff tube. Continued on antibiotics. Otherwise no acute overnight issues. Active Medications Generic Name Dose Route Start Last Admin Trade Name Freq PRN Reason Stop Dose Admin Acetaminophen 650 mg 05/04/18 20:57 Tylenol Tab PO Q4HR PRN Fever and/or Mild Pain Albuterol/Ipratropium 3 ml 05/05/18 02:21 05/13/18 20:07 Duoneb 0.5 Mg-3 Mg/3 Ml Soln INHALATION 3 ml RT-Q2H PRN Administration Shortness Of Breath Or Wheezing Dextrose/Water 1,000 mls @ 50 mls/hr 05/10/18 15:30 08/16/18 23:07 Dextrose 5%-Water Iv Soln IV 50 mls/hr .Q20H [facility]IVE Administration Levofloxacin/Dextrose 250 mg/ 50 mls @ 50 mls/hr 05/12/18 09:00 05/13/18 09: 16 IV Solution IVPB 50 mls/hr Q24H [facility]IVE Administration Amiodarone HCl 450 mg/ 250 mls @ 16.66 mls/hr 05/13/18 13:46 05/13/18 14:19 Dextrose/Water IV 0.5 mg/min .Q15H1M OLIVE 16.66 mls/hr Administration 0.5 MG/MIN Insulin Aspart 0 unit 05/09/18 21:00 05/13/18 21:27 Novolog SQ Not Given ACHS [facility] Protocol Metoclopramide HCl 10 mg 05/12/18 11:59 05/12/18 12:26 Reglan IVP 10 mg Q6HR PRN Administration Vomiting Metoprolol Tartrate 100 mg 05/11/18 22:00 05/13/18 20:33 Lopressor PO Not Given TID [facility] Naloxone HCl 0.2 mg 05/04/18 20:57 Narcan IV Q2M PRN Opioid Reversal Nitroglycerin 1 inch 05/10/18 12:00 05/13/18 23:05 Nitro-Bid Oint TOPICAL 1 inch Q6HR [facility] Administration Ondansetron HCl 4 mg 05/11/18 21:03 05/12/18 18:49 Zofran IVP 4 mg Q6HR PRN Administration Nausea And Vomiting Pantoprazole Sodium 40 mg 05/13/18 09:00 05/13/18 09:17 Protonix IVP 40 mg DAILY [facility] Administration Prochlorperazine Maleate 10 mg 05/12/18 11:57 05/12/18 15:44 Compazine PO 10 mg Q6HR PRN Administration Nausea And Vomiting Pyridoxine HCl 100 mg 05/05/18 15:00 05/13/18 14:58 Vitamin B-6 PO Not Given DAILY@1500 [facility] Objective - Vital Signs Vital signs: Vital Signs Temp 98.2 F 05/15/18 20:01 Pulse 80 05/15/18 20:01 Resp 18 05/15/18 20:01 BP 110/66 05/15/18 20:01 Pulse Ox 95 05/15/18 20:01 Intake & Output 05/15/18 05/15/18 05/16/18 06:59 18:59 06:59 Intake Total 180 280 40 Output Total 800 825 Balance -620 -545 40 Weight 103.5 kg 104 kg Intake: Tube Feeding 180 280 40 Output: Urine 800 825 Other: Voiding Method Ileal Conduit (Right) Ileal Conduit (Right) Ileal Conduit ( Right) # Bowel Movements 1 ABP, PAP, CO, CI - Last Documented Arterial Blood Pressure 137/47 - Exam PHYSICAL EXAMINATION: Patient is lying in the bed comfortably, no acute distress, awake alert and oriented.. HEENT: Normocephalic. Neck is supple. Pupils reactive. Nostrils clear. Oral cavity is moist. Ears reveal no drainage. Neck reveals no JVD, carotid bruits, or thyromegaly. CHEST EXAMINATION: Trachea is central. Symmetrical expansion. Bilateral diffuse rhonchi and basilar crackles.. CARDIAC: Normal S1, S2 with no gallops. No murmurs . Irregular rhythm. ABDOMEN: Soft. Bowel sounds normal. No organomegaly. No abdominal bruits. Extremities: reveal no edema. No clubbing or cyanosis Neurologically awake, alert, oriented x3 with well-coordinated movements. No focal deficits noted Skin: No rash or skin lesions. Psychiatric: Coperative. Nonsuicidal Musculoskeletal: No joint swelling or deformity. Normal range of motion. - Labs CBC & Chem 7: 05/14/18 05:39 05/15/18 05:56 Labs: Abnormal Lab Results - Last 24 Hours (Table) 05/15/18 05/15/18 05/15/18 Range/Units 05:56 06:05 12:16 Chloride 111 H (98-107) mmol/L BUN 25 H (9-20) mg/dL Creatinine 1.30 H (0.66-1.25) mg/dL Glucose 111 H (74-99) mg/dL POC Glucose (mg/dL) 122 H 150 H (75-99) mg/dL 05/15/18 05/15/18 Range/Units 16:58 20:54 Chloride (98-107) mmol/L BUN (9-20) mg/dL Creatinine (0.66-1.25) mg/dL Glucose (74-99) mg/dL POC Glucose (mg/dL) 198 H 152 H (75-99) mg/dL Assessment and Plan Assessment: Acute blood loss anemia secondary to GI bleed. with negative EGD Acute hypotension secondary to above, resolved. Acute kidney injury likely prerenal improved. E. coli urinary tract infection Chronic atrial fibrillation on anticoagulation and amiodarone IV Alcoholic liver disease and Coumadin induced coagulopathy History of bladder/prostate cancer. Status post urostomy placement Metabolic acidosis, resolved Coronary artery disease, status post previous myocardial infarction. Cardiomyopathy with an ejection fraction of 25-30% Ventilator-dependent respiratory failure, resolved Failed swallow evaluation. Medical debility Plan: Patient be continued on IV hydration and status post duboff tube placement due to failed swallow evaluation. Continue the antibiotics. Cardiology and pulmonary is following. Monitor H&H and further recommendations based on the clinical course. Time with Patient: Greater than 30
--- NOTE | 2018-05-17 01:00 | P.PN ---
Subjective Progress Note Date: 05/16/18 Principal diagnosis: GI bleed Patient is a 77-year-old male with a known history of Atrial Fibrillation, prostate and bladder Cancer, Myocardial Infarction ([place]) was initially admitted to the hospital on 05/04/2018 due to GI bleed. Patient had EGD done at the time and showed no active bleeding. Patient became hypotensive and went into hypoxic respiratory failure and was transferred to MICU. Patient was subsequently extubated and transferred to [facility]. Patient does have a history of chronic alcohol abuse and coagulopathy. His renal function is much improved now. Urine culture showed E. coli. Otherwise patient has generalized weakness and paste elevation. 05/13/2018 Patient denied any complaints of chest pain. Shortness of breath is stable. Patient has worsening shortness of breath last night and was given IV Lasix. Continue with hydration gently. Patient is requiring high flow oxygen via nasal cannula. Otherwise patient is nothing by mouth and failed swallow evaluation. GI is planning for EGD and Dobbhoff placement tomorrow. Patient is on antibiotics in the form of Levaquin. Urine culture showed E. coli. Patient is on amiodarone drip as well for atrial fibrillation.. 05/14/2018 Patient is more awake and oriented today. Able to come and get properly. Part spreading in physical therapy. Hemoglobin is stable otherwise. Patient is being continued on antibiotics in the form of Levaquin. Pulmonary and cardiology is following. Patient is maintained on amiodarone drip for atrial fibrillation. GI is planning for Dobbhoff tube insertion today afternoon. We will consider swallow evaluation again possibly on Thursday. 05/15/2018 Patient denied any new complaints today. Feeding throughDobbhoff tube. Continued on antibiotics. Otherwise no acute overnight issues. 05/16/2018 Patient denied any complaints of chest pain or shortness of breath. Patient pulled outDobbhoff tube. Patient was started back on solid diet diet which he has been tolerating very well. Patient did have difficulty swallowing with liquid diet with barium swallow. Otherwise we will monitor H&H and BMP tomorrow. Anticipate discharged to rehab in 1-2 days . May need repeat swallow elevation. All other review of systems negative except the above. Active Medications Generic Name Dose Route Start Last Admin Trade Name Freq PRN Reason Stop Dose Admin Acetaminophen 650 mg 05/04/18 20:57 Tylenol Tab PO Q4HR PRN Fever and/or Mild Pain Albuterol/Ipratropium 3 ml 05/05/18 02:21 05/13/18 20:07 Duoneb 0.5 Mg-3 Mg/3 Ml Soln INHALATION 3 ml RT-Q2H PRN Administration Shortness Of Breath Or Wheezing Dextrose/Water 1,000 mls @ 50 mls/hr 05/10/18 15:30 05/13/18 23:07 Dextrose 5%-Water Iv Soln IV 50 mls/hr .Q20H OLIVE Administration Levofloxacin/Dextrose 250 mg/ 50 mls @ 50 mls/hr 05/12/18 09:00 05/13/18 09: 16 IV Solution IVPB 50 mls/hr Q24H OLIVE Administration Amiodarone HCl 450 mg/ 250 mls @ 16.66 mls/hr 05/13/18 13:46 05/13/18 14:19 Dextrose/Water IV 0.5 mg/min .Q15H1M OLIVE 16.66 mls/hr Administration 0.5 MG/MIN Insulin Aspart 0 unit 05/09/18 21:00 05/13/18 21:27 Novolog SQ Not Given ACHS [facility] Protocol Metoclopramide HCl 10 mg 05/12/18 11:59 05/12/18 12:26 Reglan IVP 10 mg Q6HR PRN Administration Vomiting Metoprolol Tartrate 100 mg 05/11/18 22:00 05/13/18 20:33 Lopressor PO Not Given TID OLIVE Naloxone HCl 0.2 mg 05/04/18 20:57 Narcan IV Q2M PRN Opioid Reversal Nitroglycerin 1 inch 05/10/18 12:00 05/13/18 23:05 Nitro-Bid Oint TOPICAL 1 inch Q6HR OLIVE Administration Ondansetron HCl 4 mg 05/11/18 21:03 05/12/18 18:49 Zofran IVP 4 mg Q6HR PRN Administration Nausea And Vomiting Pantoprazole Sodium 40 mg 05/13/18 09:00 05/13/18 09:17 Protonix IVP 40 mg DAILY OLIVE Administration Prochlorperazine Maleate 10 mg 05/12/18 11:57 05/12/18 15:44 Compazine PO 10 mg Q6HR PRN Administration Nausea And Vomiting Pyridoxine HCl 100 mg 05/05/18 15:00 05/13/18 14:58 Vitamin B-6 PO Not Given DAILY@1500 OLIVE Objective - Vital Signs Vital signs: Vital Signs Temp 97.6 F 05/16/18 16:43 Pulse 100 05/16/18 17:17 Resp 15 05/16/18 16:43 BP 130/72 05/16/18 16:43 Pulse Ox 97 05/16/18 17:06 Intake & Output 05/16/18 05/16/18 05/17/18 06:59 18:59 06:59 Intake Total 360 Balance 360 Weight 101 kg 101 kg Intake: Tube Feeding 360 Other: Voiding Method Ileal Conduit (Right) Ileal Conduit (Right) ABP, PAP, CO, CI - Last Documented Arterial Blood Pressure 137/47 - Exam PHYSICAL EXAMINATION: Patient is lying in the bed comfortably, no acute distress, awake alert and oriented.. HEENT: Normocephalic. Neck is supple. Pupils reactive. Nostrils clear. Oral cavity is moist. Ears reveal no drainage. Neck reveals no JVD, carotid bruits, or thyromegaly. CHEST EXAMINATION: Trachea is central. Symmetrical expansion. Bilateral diffuse rhonchi and basilar crackles.. CARDIAC: Normal S1, S2 with no gallops. No murmurs . Irregular rhythm. ABDOMEN: Soft. Bowel sounds normal. No organomegaly. No abdominal bruits. Extremities: reveal no edema. No clubbing or cyanosis Neurologically awake, alert, oriented x3 with well-coordinated movements. No focal deficits noted Skin: No rash or skin lesions. Psychiatric: Coperative. Nonsuicidal Musculoskeletal: No joint swelling or deformity. Normal range of motion. - Labs CBC & Chem 7: 05/14/18 05:39 05/15/18 05:56 Labs: Abnormal Lab Results - Last 24 Hours (Table) 05/15/18 05/16/18 05/16/18 Range/Units 20:54 05:36 12:00 POC Glucose (mg/dL) 152 H 165 H 124 H (75-99) mg/dL 05/16/18 Range/Units 16:52 POC Glucose (mg/dL) 238 H (75-99) mg/dL Assessment and Plan Assessment: Acute blood loss anemia secondary to GI bleed. with negative EGD Acute hypotension secondary to above, resolved. Acute kidney injury likely prerenal improved. E. coli urinary tract infection Chronic atrial fibrillation on anticoagulation and amiodarone IV Alcoholic liver disease and Coumadin induced coagulopathy History of bladder/prostate cancer. Status post urostomy placement Metabolic acidosis, resolved Coronary artery disease, status post previous myocardial infarction. Cardiomyopathy with an ejection fraction of 25-30% Ventilator-dependent respiratory failure, resolved Failed swallow evaluation. Medical debility Plan: Patient be continued on IV hydration and status post duboff tube placement due to failed swallow evaluation. Continue the antibiotics. Cardiology and pulmonary is following. Monitor H&H and further recommendations based on the clinical course. Time with Patient: Greater than 30
[2018-05-17 06:09] LABS: Glucose,Whole Blood 176 mg/dL (75-99)
[2018-05-17] MEDS: INSULIN ASPART 100 UNIT/ML 1 ML 10 ML VIAL SQ SCH ×4 (06:23→21:01)
[2018-05-17 06:27] LABS: Anisocytosis Slight; HCT 27.2 % (39.0-53.0); HGB 8.6 gm/dL (13.0-17.5); Hypochromasia Marked; MCH 28.8 pg (25.0-35.0); MCHC 31.6 g/dL (31.0-37.0); MCV 91.2 fL (80.0-100.0); Mean Platelet Volume 12.9; Platelet Count 91 k/uL (150-450); Poikilocytosis Slight; RBC 2.99 m/uL (4.30-5.90); RDW 19.3 % (11.5-15.5); WBC 6.5 k/uL (3.8-10.6)
[2018-05-17 07:07] LABS: Band Neutrophils % 1 %; Lymphocytes # (M) 0.39 k/uL (1.0-4.8); Myelocytes # (M) 0.07 k/uL (0); Myelocytes % 1 %; Neutrophils % (M) 90 %; Nucleated Red Blood Cells 0 /100 WBC (0-0); Total Cells Counted 200
[2018-05-17 07:10] LABS: Large Platelets Present
[2018-05-17 09:01] LABS: Calcium 9.6 mg/dL (8.4-10.2); Potassium 3.8 mmol/L (3.5-5.1)
[2018-05-17] MEDS: SYMBICORT 160-4.5 MCG INHALER INHALATION SCH ×2 (09:08→20:27)
[2018-05-17] MEDS: IPRATROPIUM-ALBUTEROL 3 ML NEB INHALATION PRN ×3 (09:09→17:11)
[2018-05-17] MEDS: PANTOPRAZOLE 40 MG/10 ML VIAL IVP SCH (09:13)
[2018-05-17] MEDS: METOPROLOL TARTRATE 50 MG TAB PO SCH ×3 (09:14→21:01)
[2018-05-17] MEDS: LEVOFLOXACIN 250MG-D5W PMX 250 MG in DEXTROSE/WATER 1 50ML.BAG IVPB SCH (09:14)
[2018-05-17] MEDS: methylPREDNISolone SOD SUCCI 40 MG/ML 1 ML VIAL IV SCH ×3 (09:14→23:27)
[2018-05-17] MEDS: AMIODARONE 200 MG TAB PO SCH ×3 (09:14→21:01)
--- NOTE | 2018-05-17 09:23 | P.PN ---
Subjective Patient is seen in follow-up for JUDY. Cr was 2.5 on admission and is down to 1.25 today. Creatinine in 2016 was 0.7. Patient presented with hemoglobin of 4.1 and has received multiple blood transfusions. He underwent EGD on May 07 which revealed duodenitis with duodenal bulb ulcers with no active bleeding. He is off all vasopressors. He is nonoliguric. Also being treated for E. coli UTI. Sodium level 145 today. He is now nothing by mouth due to concern for aspiration. Scheduled for barium swallow eval today. Vital signs are stable. General: The patient appeared well nourished and normally developed. HEENT: Head exam is unremarkable. Neck is without jugular venous distension. LUNGS: Scattered rhonchi. Breath sounds decreased. HEART: Irregular rate and rhythm. ABDOMEN: Abdominal exam reveals normal bowel sounds. Non-tender and non- distended. No evidence of peritonitis. EXTREMITITES: No clubbing, cyanosis, or edema. Objective - Vital Signs Vital signs: Vital Signs Temp 97.3 F L 05/17/18 03:44 Pulse 96 05/17/18 09:09 Resp 20 05/17/18 03:44 BP 124/68 05/17/18 03:44 Pulse Ox 95 05/17/18 03:44 Intake & Output 05/16/18 05/17/18 05/17/18 18:59 06:59 18:59 Intake Total 120 240 Output Total 875 Balance -875 120 240 Weight 101 kg 96.7 kg Intake: Oral 120 240 Output: Urine 875 Other: Voiding Method Ileal Conduit (Right) Ileal Conduit (Right) ABP, PAP, CO, CI - Last Documented Arterial Blood Pressure 137/47 - Labs CBC & Chem 7: 05/17/18 05:23 05/17/18 05:23 Labs: Abnormal Lab Results - Last 24 Hours (Table) 05/16/18 05/16/18 05/17/18 Range/Units 12:00 16:52 05:23 RBC (4.30-5.90) m/uL Hgb (13.0-17.5) gm/dL Hct (39.0-53.0) % RDW (11.5-15.5) % Plt Count (150-450) k/uL Lymphocytes # (Manual) (1.0-4.8) k/uL Myelocytes # (Manual) (0) k/uL Chloride 113 H (98-107) mmol/L BUN 35 H (9-20) mg/dL Glucose 144 H (74-99) mg/dL POC Glucose (mg/dL) 124 H 238 H (75-99) mg/dL 05/17/18 05/17/18 Range/Units 05:23 06:08 RBC 2.99 L (4.30-5.90) m/uL Hgb 8.6 L (13.0-17.5) gm/dL Hct 27.2 L (39.0-53.0) % RDW 19.3 H (11.5-15.5) % Plt Count 91 L (150-450) k/uL Lymphocytes # (Manual) 0.39 L (1.0-4.8) k/uL Myelocytes # (Manual) 0.07 H (0) k/uL Chloride (98-107) mmol/L BUN (9-20) mg/dL Glucose (74-99) mg/dL POC Glucose (mg/dL) 176 H (75-99) mg/dL Assessment and Plan Plan: Assessment: 1. Nonoliguric acute kidney injury secondary to ATN secondary to acute anemia and hypotension. Creatinine was 2.5 on admission. It is 1.25 today. Noted to have bilateral hydronephrosis. 2. Acute anemia status post multiple blood transfusions this admission. Hemoglobin stable. Status post EGD on May 07 which revealed duodenitis with duodenal bulb ulcers without any active bleeding. 3. Hypernatremia secondary to lack of oral water intake. 4. Bilateral hydronephrosis. Evaluated by urology. No interventions planned at this time. 5. E. coli UTI maintained on antibiotics. 6. A-fib with RVR, now rate controlled. 7. Volume overload. Improved with diuresis. 8. Hypokalemia from poor oral intake and diuresis. Improved. Plan: Scheduled for barium swallow today. Continue to monitor renal function and urine output. Avoid nephrotoxic agents and hypotensive episodes. Check iron studies.
[2018-05-17 11:49] LABS: Glucose,Whole Blood 171 mg/dL (75-99)
--- NOTE | 2018-05-17 12:37 | FL ---
EXAMINATION TYPE: FL barium swallow w video DATE OF EXAM: 05/17/2018 COMPARISON: NONE HISTORY: Abnormal bedside exam, follow-up aspiration TECHNIQUE: Fluoroscopy. FINDINGS: Fluoroscopic guidance was provided for the procedure performed in conjunction with the [facility] pathology department. Please see complete report forthcoming from the Speech Pathology departmen t. Various consistencies from thin liquid to solids were administered. Fluoroscopy time 2 minutes 52 seconds Number of images: 0. Penetration was present with thin liquids. No aspiration was observed. There was some transient deep penetration with nectar thick liquids. Remaining consistencies were without aspiration or penetration . Some pooling was observed in the vallecula. There was normal propulsion of the bolus. IMPRESSION: 1. Penetration with thin liquids and to a lesser degree nectar thick liquids. No aspiration was evide nt.
--- NOTE | 2018-05-17 12:51 | XR ---
EXAMINATION TYPE: XR chest 2V DATE OF EXAM: 05/17/2018 COMPARISON: 05/15/2018 INDICATION: Pneumonia TECHNIQUE: Frontal and lateral views of the chest are obtained. FINDINGS: The heart size is slightly prominent. The pulmonary vasculature is normal. Right lower lobe infiltrate is present. Aspiration pneumonia could be within the differential. This i s improving from comparison. Left lower lobe infiltrate along the diaphragm may be present. This has improved from comparison. There is hyperinflation flattening the diaphragms. Underlying COPD should b e considered. IMPRESSION: 1. Improving bibasilar infiltrates. Pneumonia and aspiration pneumonia could be considered.
--- NOTE | 2018-05-17 13:54 | P.PN ---
Progress Note - Text Progress Note Date: 05/17/18 Assessment and to the cardiology progress note dictated. Patient does have paroxysmal atrial fibrillation as well as MAT which is multifocal atrial tachycardia. DNP note has been reviewed, I agree with a documented findings and plan of care. Patient was seen and examined.
--- NOTE | 2018-05-17 14:03 | P.PN ---
Subjective Progress Note Date: 05/17/18 This is a 77-year-old male, looks much older than his stated age, was admitted on May 04 for a GI bleed. The patient did have an EGD which was apparently negative for active bleeding. He also has a history of acute kidney injury low blood pressure and atrial fibrillation. Patient continues to be in atrial fibrillation today the heart rate is in the 80s. He continues to be on amiodarone. Patient had several episodes today of vomiting, he is very nauseated. We do not feel this is secondary to the amiodarone. Our recommendations at this time are to continue with the amiodarone. Blood pressure 122/70, heart rate in the 80s, afebrile, 90% on room air. The patient did have a repeat modified barium swallow and he was noted to be aspirating. IV continues at 75 mL per hour. No recurrent GI bleeding. 05/13/2018 Patient was seen and examined this morning, currently nothing by mouth because of suspicion of aspiration. Continues to be on IV amiodarone drip. Patient is in atrial fibrillation with a heart rate in the 70s to 80s. Continues to require high flow oxygen. Blood pressure 110/50 with a heart rate in the 70s, 90% on 10 L high flow. BUN 35 today and creatinine 1.6. 05/15/2018 Patient seen and examined this morning, had a feeding tube placed. We will change him over to oral beta radha and amiodarone today. His heart rate is overall stable in the 80s. 05/17/2018 Patient seen and examined this morning, states that he feels great today. Blood pressure 128/70 with a heart rate in the 70s, 99% on 3 L of oxygen. Objective - Vital Signs Vital signs: Vital Signs Temp 97.8 F 05/17/18 11:55 Pulse 80 05/17/18 12:30 Resp 20 05/17/18 11:55 BP 128/73 05/17/18 11:55 Pulse Ox 99 05/17/18 11:55 Intake & Output 05/16/18 05/17/18 05/17/18 18:59 06:59 18:59 Intake Total 120 480 Output Total 875 Balance -875 120 480 Weight 101 kg 96.7 kg Intake: Oral 120 480 Output: Urine 875 Other: Voiding Method Ileal Conduit (Right) Ileal Conduit (Right) Ileal Conduit ( Right) ABP, PAP, CO, CI - Last Documented Arterial Blood Pressure 137/47 - Exam No apparent distress, the patient is much more awake and alert today, oriented 3, not requiring supplemental oxygen. HEENT examination is grossly unremarkable. Mucous membranes are moist. Neck supple. Full range of motion. No adenopathy thyromegaly or neck vein distention. Cardiovascular examination reveals a irregular rhythm and rate. He is in atrial fibrillation at a rate of 80. S1-S2 normal. No heart murmur noted. Lungs reveal improvement in breath sounds throughout. Abdomen soft bowel sounds are heard. No masses or tenderness. Extremities are intact. No cyanosis clubbing or edema. Skin is without rash or lesion. Neurologic examination is brief but nonfocal. - Labs CBC & Chem 7: 05/17/18 05:23 05/17/18 05:23 Labs: Abnormal Lab Results - Last 24 Hours (Table) 05/16/18 05/17/18 05/17/18 Range/Units 16:52 05:23 05:23 RBC 2.99 L (4.30-5.90) m/uL Hgb 8.6 L (13.0-17.5) gm/dL Hct 27.2 L (39.0-53.0) % RDW 19.3 H (11.5-15.5) % Plt Count 91 L (150-450) k/uL Lymphocytes # (Manual) 0.39 L (1.0-4.8) k/uL Myelocytes # (Manual) 0.07 H (0) k/uL Chloride 113 H (98-107) mmol/L BUN 35 H (9-20) mg/dL Glucose 144 H (74-99) mg/dL POC Glucose (mg/dL) 238 H (75-99) mg/dL 05/17/18 05/17/18 Range/Units 06:08 11:37 RBC (4.30-5.90) m/uL Hgb (13.0-17.5) gm/dL Hct (39.0-53.0) % RDW (11.5-15.5) % Plt Count (150-450) k/uL Lymphocytes # (Manual) (1.0-4.8) k/uL Myelocytes # (Manual) (0) k/uL Chloride (98-107) mmol/L BUN (9-20) mg/dL Glucose (74-99) mg/dL POC Glucose (mg/dL) 176 H 171 H (75-99) mg/dL Assessment and Plan Plan: Assessment: #1. Acute blood loss anemia, secondary to GI bleeding #2. Hypotension, weakness, falls, black tarry stools related to the above #3. Altered mentation, likely related to hypovolemia, and possibly related to sepsis #4. Leukocytosis, rule out sepsis #5. Coumadin induced coagulopathy #6. Paroxsysmal atrial fibrillation, and multifocal atrial tachycardia #7. Acute kidney injury related to acute blood loss anemia and hypotension #8. Lactic acidosis, rule out sepsis #9. History of bladder and prostate cancer, status post urostomy placement #10. Previous history of myocardial infarction #11. Dysphasia #12. E. coli urinary tract infection #13 Plan: From cardiology's perspective, we'll continue the patient on his current medications. DNP note has been reviewed, I agree with a documented findings and plan of care. Patient was seen and examined.
--- NOTE | 2018-05-17 14:14 | P.PN ---
Subjective Progress Note Date: 05/17/18 Principal diagnosis: GI bleed, alcoholism, acute kidney injury Progress note dated 05/10/2018 This is a 77-year-old male, looks much older than his stated age, was admitted on May 04 for a GI bleed. The patient did have an EGD which was apparently negative for active bleeding. He also has a history of acute kidney injury low blood pressure and atrial fibrillation. He was X Dave 2 days ago. The patient 's currently on O2 at 4 L by nasal cannula. The patient's currently dextrose IV running at 80. It will be turned down to KVO. He is also on amiodarone at 0.5 mg/m. Since being here, the patient has received 6 units of PRBCs and 1 unit of fresh frozen plasma. CODE STATUS has not been addressed and should be addressed. Currently, the patient is a full code. The patient's very lethargic but does arouse. He mumbles words. Nothing is understandable. Apparently he's been this way since he was admitted and since he was extubated. Chest x-ray is consistent with mild fluid overload. I did have the opportunity to speak to the patient's daughter. She will talk to her brother and sister and make some decisions about CODE STATUS. She will get adequate dose later today. Progress note dated 05/11/2018 77-year-old male who actually looks much better today. He was admitted on May 04 for GI bleed. The patient did have an EGD which was negative for active bleeding. He also has a history of acute kidney injury, hypotension, and atrial fibrillation. The patient was extubated 2 days ago. Currently, the patient is on room air. The patient's IV is dextrose at 50 mL an hour he is currently on esmolol at 50 g and amiodarone at 1 mg. The patient declares to me that he would not want to be on life support. I did talk to the daughter about that. Currently he is in atrial fibrillation with a rate of 103. The patient looks much better today than he did yesterday. Chest x-rays consistent with fluid overload. He did fail his modified barium swallow yesterday but they 're coming back today to recheck him. He denies any pain or discomfort. Progress note dated 05/13/2018 77-year-old male who actually is much improved. He was admitted back on 2017 for GI bleed. The patient did have an EGD which was negative for active bleeding. He has a history of acute kidney injury, hypotension, which is resolved, and atrial fibrillation. The patient was extubated about 4 days ago. The patient is currently doing reasonably well. Some question about the patient's CODE STATUS. I asked the patient and his 2 daughters to get together and talk about it. He is not sure what he wants. Currently, he is a full code. Another issue with this patient as he is not receiving any nutrition. We will see if GI or interventional radiology complaining Dobbhoff so we can feed him enterally. If that's not possible, he does have a central line in place and we could see him by TPN. He has failed his modified barium swallow. Other than that, he is doing reasonably well and has improved. The patient is seen again today 05/14/2018 in follow-up on the selective care unit. He is currently awake and alert in no acute distress. He sitting up in a chair at the bedside. He denies any worsening shortness of breath, cough or congestion. He does continue to require 8 L high flow nasal cannula to maintain O2 saturations in the 90s. He's been afebrile. The plan is for GI services to insert a Dobbhoff tube for nutritional support. The patient is seen again today 05/15/2018 in follow-up on the selective care unit. He is currently sitting up in a chair at the bedside. He is awake and alert in no acute distress. He did undergo Dobbhoff placement and is currently receiving Vital AF 1.2 with a goal of 80 MLS per hour for nutritional support. He currently denies any worsening shortness of breath. He continues with a loose nonproductive cough. Chest x-ray does suggest some worsening bibasilar airspace disease and small bilateral pleural effusions. Suspect some chronic aspiration. He is currently on Levaquin and DuoNeb inhalations. We'll add Symbicort and IV Solu-Medrol. Progress note dated 05/16/2018 77-year-old male who was in the ICU for a number days. He was admitted back on May 04 for GI bleed. An EGD was done and was negative for active bleeding. In addition, he has a history of acute kidney injury, hypotension, which is improved in atrial fibrillation. The patient was mechanically ventilated but extubated on May 09. The patient currently is a full code according to him and his parents. A Dobbhoff tube was placed by interventional radiology but unfortunately was pulled out by the patient last night. The patient is confused. Not exhibiting any signs or symptoms of respiratory difficulty. In fact, most of the time, he is not wearing his oxygen. His vital signs are reasonably stable with a temperature of 97.6 heart rate 90 respiratory rate 18 blood pressure 115/78 with a mean of 90 and 97% saturation on high flow oxygen of 4 L. No new labs to report on this patient. The patient was seen again on 05/17/2018 in follow-up on the selective care unit. He is currently sitting up in a chair at the bedside. He is awake and alert in no acute distress. He denies any worsening shortness of breath, cough or congestion. Maintaining good O2 saturations in the upper 90s on 3 L/m per nasal cannula now. Chest x-ray reveals improved by basilar infiltrates. He's been afebrile. White count 6.5. Hemoglobin 8.6. Creatinine 1.25. He did undergo a barium swallow which revealed penetration with thin liquids and to a lesser degree with nectar thick liquids. No aspiration was evident. Objective - Vital Signs Vital signs: Vital Signs Temp 97.8 F 05/17/18 11:55 Pulse 80 05/17/18 12:30 Resp 20 05/17/18 11:55 BP 128/73 05/17/18 11:55 Pulse Ox 99 05/17/18 11:55 Intake & Output 05/16/18 05/17/18 05/17/18 18:59 06:59 18:59 Intake Total 120 480 Output Total 875 Balance -875 120 480 Weight 101 kg 96.7 kg Intake: Oral 120 480 Output: Urine 875 Other: Voiding Method Ileal Conduit (Right) Ileal Conduit (Right) Ileal Conduit ( Right) ABP, PAP, CO, CI - Last Documented Arterial Blood Pressure 137/47 - Exam No apparent distress, the patient is much more awake and alert today, oriented 3, down to 3 L/m per nasal cannula. HEENT examination is grossly unremarkable. Mucous membranes are moist. Neck supple. Full range of motion. No adenopathy thyromegaly or neck vein distention. Cardiovascular examination reveals a irregular rhythm and rate. He is in atrial fibrillation at a rate of 103. S1-S2 normal. No heart murmur noted. Lungs reveal diminished breath sounds throughout. Some scattered bilateral rhonchi. Bibasilar crackles. Abdomen soft bowel sounds are heard. No masses or tenderness. Extremities are intact. No cyanosis clubbing or edema. Skin is without rash or lesion. Neurologic examination is brief but nonfocal. - Labs CBC & Chem 7: 05/17/18 05:23 05/17/18 05:23 Labs: Abnormal Lab Results - Last 24 Hours (Table) 05/16/18 05/17/18 05/17/18 Range/Units 16:52 05:23 05:23 RBC 2.99 L (4.30-5.90) m/uL Hgb 8.6 L (13.0-17.5) gm/dL Hct 27.2 L (39.0-53.0) % RDW 19.3 H (11.5-15.5) % Plt Count 91 L (150-450) k/uL Lymphocytes # (Manual) 0.39 L (1.0-4.8) k/uL Myelocytes # (Manual) 0.07 H (0) k/uL Chloride 113 H (98-107) mmol/L BUN 35 H (9-20) mg/dL Glucose 144 H (74-99) mg/dL POC Glucose (mg/dL) 238 H (75-99) mg/dL 05/17/18 05/17/18 Range/Units 06:08 11:37 RBC (4.30-5.90) m/uL Hgb (13.0-17.5) gm/dL Hct (39.0-53.0) % RDW (11.5-15.5) % Plt Count (150-450) k/uL Lymphocytes # (Manual) (1.0-4.8) k/uL Myelocytes # (Manual) (0) k/uL Chloride (98-107) mmol/L BUN (9-20) mg/dL Glucose (74-99) mg/dL POC Glucose (mg/dL) 176 H 171 H (75-99) mg/dL Assessment and Plan Assessment: Assessment Acute GI bleed, exacerbated by alcohol induced coagulopathy, with negative EGD Acute hypoxic respiratory failure secondary to suspected aspiration pneumonia. Acute kidney injury Acute blood loss anemia Chronic atrial fibrillation Alcoholic liver disease induced coagulopathy History of bladder/prostate cancer Metabolic acidosis, resolved Coronary artery disease, status post previous myocardial infarction. Cardiomyopathy with an ejection fraction of 25-30% Mental status changes Ventilator-dependent respiratory failure, resolved E. coli urinary tract infection Inadequate swallowing mechanism with likely aspiration Plan: The patient was seen and evaluated by Dr. Bhatt. Chest x-ray and labs were reviewed. His oxygen requirements have improved and he is down to 3 L/m per nasal cannula. We'll continue with DuoNeb inhalations, add Symbicort, continue Solu-Medrol. Continue Levaquin. We'll continue to titrate down the FiO2 will maintaining O2 saturations greater than 90%. Increase his activity as tolerated. Continue to encourage use the incentive spirometer and cough and deep breathing exercises. Increase his diet as tolerated. We'll continue to follow. I, the cosigning physician, performed a history & physical examination of the patient. Lungs sounds with bilateral scattered rhonchi, crackles in the bases. Maintaining good O2 saturations in the 90s on 3 L high flow nasal cannula. I discussed the assessment and plan of care with my nurse practitioner, Octavia Wu. I attest to the above note as dictated by her.
[2018-05-17 16:12] LABS: Glucose,Whole Blood 145 mg/dL (75-99)
[2018-05-17] MEDS: PYRIDOXINE 50 MG TAB PO SCH (16:23)
[2018-05-17 16:35] LABS: Iron Saturation 8.39 (15.00-50.00)
[2018-05-17 20:47] LABS: Glucose,Whole Blood 189 mg/dL (75-99)
[2018-05-18 06:15] LABS: Calcium 9.6 mg/dL (8.4-10.2); Potassium 3.8 mmol/L (3.5-5.1)
[2018-05-18 06:25] LABS: Glucose,Whole Blood 135 mg/dL (75-99)
[2018-05-18] MEDS: INSULIN ASPART 100 UNIT/ML 1 ML 10 ML VIAL SQ SCH ×4 (06:26→21:17)
[2018-05-18] MEDS: methylPREDNISolone SOD SUCCI 40 MG/ML 1 ML VIAL IV SCH ×3 (08:59→23:43)
[2018-05-18] MEDS: AMIODARONE 200 MG TAB PO SCH ×3 (09:00→20:33)
[2018-05-18] MEDS: METOPROLOL TARTRATE 50 MG TAB PO SCH ×3 (09:00→20:33)
[2018-05-18] MEDS: LEVOFLOXACIN 500 MG TAB PO SCH (09:00)
[2018-05-18] MEDS: PANTOPRAZOLE 40 MG/10 ML VIAL IVP SCH (09:00)
[2018-05-18] MEDS: IPRATROPIUM-ALBUTEROL 3 ML NEB INHALATION PRN ×4 (09:17→20:08)
[2018-05-18] MEDS: SYMBICORT 160-4.5 MCG INHALER INHALATION SCH ×2 (09:17→20:08)
--- NOTE | 2018-05-18 11:36 | P.PN ---
Subjective Patient is seen in follow-up for JUDY. Cr was 2.5 on admission and is down to 1.25 today. Creatinine in 2016 was 0.7. Patient presented with hemoglobin of 4.1 and has received multiple blood transfusions. He underwent EGD on May 07 which revealed duodenitis with duodenal bulb ulcers with no active bleeding. He is off all vasopressors. He is nonoliguric. Also being treated for E. coli UTI. Patient passed a swallow eval yesterday and is now tolerating oral intake. Vital signs are stable. General: The patient appeared well nourished and normally developed. HEENT: Head exam is unremarkable. Neck is without jugular venous distension. LUNGS: Scattered rhonchi. Breath sounds decreased. HEART: Irregular rate and rhythm. ABDOMEN: Abdominal exam reveals normal bowel sounds. Non-tender and non- distended. No evidence of peritonitis. EXTREMITITES: No clubbing, cyanosis, or edema. Objective - Vital Signs Vital signs: Vital Signs Temp 97.8 F 05/18/18 09:13 Pulse 80 05/18/18 09:31 Resp 18 05/18/18 09:13 BP 124/65 05/18/18 09:13 Pulse Ox 93 L 05/18/18 09:13 Intake & Output 05/17/18 05/18/18 05/18/18 18:59 06:59 18:59 Intake Total 720 240 Balance 720 240 Weight 96.7 kg 97.7 kg Intake: Oral 720 240 Other: Voiding Method Ileal Conduit (Right) Ileal Conduit (Right) Ileal Conduit ( Right) ABP, PAP, CO, CI - Last Documented Arterial Blood Pressure 137/47 - Labs CBC & Chem 7: 05/17/18 05:23 05/18/18 05:42 Labs: Abnormal Lab Results - Last 24 Hours (Table) 05/17/18 05/17/18 05/17/18 Range/Units 05:23 11:37 16:10 Chloride (98-107) mmol/L BUN (9-20) mg/dL Glucose (74-99) mg/dL POC Glucose (mg/dL) 171 H 145 H (75-99) mg/dL Iron 24 L (65-175) ug/dL Iron Saturation 8.39 L (15.00-50.00) 05/17/18 05/18/18 05/18/18 Range/Units 20:46 05:42 06:23 Chloride 108 H (98-107) mmol/L BUN 35 H (9-20) mg/dL Glucose 128 H (74-99) mg/dL POC Glucose (mg/dL) 189 H 135 H (75-99) mg/dL Iron (65-175) ug/dL Iron Saturation (15.00-50.00) Assessment and Plan Plan: Assessment: 1. Nonoliguric acute kidney injury secondary to ATN secondary to acute anemia and hypotension. Creatinine was 2.5 on admission. It is 1.2 today. Noted to have bilateral hydronephrosis. 2. Acute anemia status post multiple blood transfusions this admission. Hemoglobin stable. Status post EGD on May 07 which revealed duodenitis with duodenal bulb ulcers without any active bleeding. Iron deficiency noted. 3. Hypernatremia secondary to lack of oral water intake. Improved. 4. Bilateral hydronephrosis. Evaluated by urology. No interventions planned at this time. 5. E. coli UTI maintained on antibiotics. 6. A-fib with RVR, now rate controlled. 7. Volume overload. Improved with diuresis. 8. Hypokalemia from poor oral intake and diuresis. Improved. Plan: Ferrlecit 125 mg IV daily for 3 days. First dose today. Continue to monitor renal function and urine output. Avoid nephrotoxic agents and hypotensive episodes.
[2018-05-18 12:17] LABS: Glucose,Whole Blood 164 mg/dL (75-99)
--- NOTE | 2018-05-18 14:48 | P.PN ---
Subjective Progress Note Date: 05/18/18 Principal diagnosis: GI bleed, alcoholism, acute kidney injury Progress note dated 05/10/2018 This is a 77-year-old male, looks much older than his stated age, was admitted on May 04 for a GI bleed. The patient did have an EGD which was apparently negative for active bleeding. He also has a history of acute kidney injury low blood pressure and atrial fibrillation. He was X Dave 2 days ago. The patient 's currently on O2 at 4 L by nasal cannula. The patient's currently dextrose IV running at 80. It will be turned down to KVO. He is also on amiodarone at 0.5 mg/m. Since being here, the patient has received 6 units of PRBCs and 1 unit of fresh frozen plasma. CODE STATUS has not been addressed and should be addressed. Currently, the patient is a full code. The patient's very lethargic but does arouse. He mumbles words. Nothing is understandable. Apparently he's been this way since he was admitted and since he was extubated. Chest x-ray is consistent with mild fluid overload. I did have the opportunity to speak to the patient's daughter. She will talk to her brother and sister and make some decisions about CODE STATUS. She will get adequate dose later today. Progress note dated 05/11/2018 77-year-old male who actually looks much better today. He was admitted on May 04 for GI bleed. The patient did have an EGD which was negative for active bleeding. He also has a history of acute kidney injury, hypotension, and atrial fibrillation. The patient was extubated 2 days ago. Currently, the patient is on room air. The patient's IV is dextrose at 50 mL an hour he is currently on esmolol at 50 g and amiodarone at 1 mg. The patient declares to me that he would not want to be on life support. I did talk to the daughter about that. Currently he is in atrial fibrillation with a rate of 103. The patient looks much better today than he did yesterday. Chest x-rays consistent with fluid overload. He did fail his modified barium swallow yesterday but they 're coming back today to recheck him. He denies any pain or discomfort. Progress note dated 05/13/2018 77-year-old male who actually is much improved. He was admitted back on 2017 for GI bleed. The patient did have an EGD which was negative for active bleeding. He has a history of acute kidney injury, hypotension, which is resolved, and atrial fibrillation. The patient was extubated about 4 days ago. The patient is currently doing reasonably well. Some question about the patient's CODE STATUS. I asked the patient and his 2 daughters to get together and talk about it. He is not sure what he wants. Currently, he is a full code. Another issue with this patient as he is not receiving any nutrition. We will see if GI or interventional radiology complaining Dobbhoff so we can feed him enterally. If that's not possible, he does have a central line in place and we could see him by TPN. He has failed his modified barium swallow. Other than that, he is doing reasonably well and has improved. The patient is seen again today 05/14/2018 in follow-up on the selective care unit. He is currently awake and alert in no acute distress. He sitting up in a chair at the bedside. He denies any worsening shortness of breath, cough or congestion. He does continue to require 8 L high flow nasal cannula to maintain O2 saturations in the 90s. He's been afebrile. The plan is for GI services to insert a Dobbhoff tube for nutritional support. The patient is seen again today 05/15/2018 in follow-up on the selective care unit. He is currently sitting up in a chair at the bedside. He is awake and alert in no acute distress. He did undergo Dobbhoff placement and is currently receiving Vital AF 1.2 with a goal of 80 MLS per hour for nutritional support. He currently denies any worsening shortness of breath. He continues with a loose nonproductive cough. Chest x-ray does suggest some worsening bibasilar airspace disease and small bilateral pleural effusions. Suspect some chronic aspiration. He is currently on Levaquin and DuoNeb inhalations. We'll add Symbicort and IV Solu-Medrol. Progress note dated 05/16/2018 77-year-old male who was in the ICU for a number days. He was admitted back on May 04 for GI bleed. An EGD was done and was negative for active bleeding. In addition, he has a history of acute kidney injury, hypotension, which is improved in atrial fibrillation. The patient was mechanically ventilated but extubated on May 09. The patient currently is a full code according to him and his parents. A Dobbhoff tube was placed by interventional radiology but unfortunately was pulled out by the patient last night. The patient is confused. Not exhibiting any signs or symptoms of respiratory difficulty. In fact, most of the time, he is not wearing his oxygen. His vital signs are reasonably stable with a temperature of 97.6 heart rate 90 respiratory rate 18 blood pressure 115/78 with a mean of 90 and 97% saturation on high flow oxygen of 4 L. No new labs to report on this patient. The patient was seen again on 05/17/2018 in follow-up on the selective care unit. He is currently sitting up in a chair at the bedside. He is awake and alert in no acute distress. He denies any worsening shortness of breath, cough or congestion. Maintaining good O2 saturations in the upper 90s on 3 L/m per nasal cannula now. Chest x-ray reveals improved by basilar infiltrates. He's been afebrile. White count 6.5. Hemoglobin 8.6. Creatinine 1.25. He did undergo a barium swallow which revealed penetration with thin liquids and to a lesser degree with nectar thick liquids. No aspiration was evident. The patient is seen again today 05/18/2018 in follow-up on the selective care unit. He is again sitting up in a chair at the bedside. He remains awake and alert in no acute distress. He is maintaining O2 saturations in the mid 90s now on room air. No pulmonary complaints. He is tolerating a dysphagia level III chopped diet. Objective - Vital Signs Vital signs: Vital Signs Temp 97.7 F 05/18/18 11:33 Pulse 76 05/18/18 13:07 Resp 18 05/18/18 11:33 BP 133/77 05/18/18 11:33 Pulse Ox 92 L 05/18/18 11:33 Intake & Output 05/17/18 05/18/18 05/18/18 18:59 06:59 18:59 Intake Total 720 480 Balance 720 480 Weight 96.7 kg 97.7 kg Intake: Oral 720 480 Other: Voiding Method Ileal Conduit (Right) Ileal Conduit (Right) Ileal Conduit ( Right) ABP, PAP, CO, CI - Last Documented Arterial Blood Pressure 137/47 - Exam No apparent distress, the patient is much more awake and alert today, oriented 3, down to 2 L/m per nasal cannula. HEENT examination is grossly unremarkable. Mucous membranes are moist. Neck supple. Full range of motion. No adenopathy thyromegaly or neck vein distention. Cardiovascular examination reveals a irregular rhythm and rate. He is in atrial fibrillation at a rate of 103. S1-S2 normal. No heart murmur noted. Lungs reveal diminished breath sounds throughout. Some scattered bilateral rhonchi. Bibasilar crackles. Abdomen soft bowel sounds are heard. No masses or tenderness. Extremities are intact. No cyanosis clubbing or edema. Skin is without rash or lesion. Neurologic examination is brief but nonfocal. - Labs CBC & Chem 7: 05/17/18 05:23 05/18/18 05:42 Labs: Abnormal Lab Results - Last 24 Hours (Table) 05/17/18 05/17/18 05/17/18 Range/Units 05:23 16:10 20:46 Chloride (98-107) mmol/L BUN (9-20) mg/dL Glucose (74-99) mg/dL POC Glucose (mg/dL) 145 H 189 H (75-99) mg/dL Iron 24 L (65-175) ug/dL Iron Saturation 8.39 L (15.00-50.00) 05/18/18 05/18/18 05/18/18 Range/Units 05:42 06:23 11:15 Chloride 108 H (98-107) mmol/L BUN 35 H (9-20) mg/dL Glucose 128 H (74-99) mg/dL POC Glucose (mg/dL) 135 H 164 H (75-99) mg/dL Iron (65-175) ug/dL Iron Saturation (15.00-50.00) Assessment and Plan Assessment: Assessment Acute GI bleed, exacerbated by alcohol induced coagulopathy, with negative EGD Acute hypoxic respiratory failure secondary to suspected aspiration pneumonia. Acute kidney injury Acute blood loss anemia Chronic atrial fibrillation Alcoholic liver disease induced coagulopathy History of bladder/prostate cancer Metabolic acidosis, resolved Coronary artery disease, status post previous myocardial infarction. Cardiomyopathy with an ejection fraction of 25-30% Mental status changes Ventilator-dependent respiratory failure, resolved E. coli urinary tract infection Inadequate swallowing mechanism with likely aspiration Plan: The patient was seen and evaluated by Dr. Bhatt. His oxygen requirements have improved and he is down to 2 L/m per nasal cannula. We'll continue with DuoNeb inhalations, Symbicort, DC Solu-Medrol and started on a prednisone taper. Continue to encourage use the incentive spirometer and cough and deep breathing exercises. Increase his diet as tolerated. We'll continue to follow. I, the cosigning physician, performed a history & physical examination of the patient. Lungs sounds with bilateral scattered rhonchi, crackles in the bases. Maintaining good O2 saturations in the 90s on 3 L high flow nasal cannula. I discussed the assessment and plan of care with my nurse practitioner, Octavia Wu. I attest to the above note as dictated by her.
[2018-05-18] MEDS: PYRIDOXINE 50 MG TAB PO SCH (16:11)
[2018-05-18] MEDS: SODIUM FERRIC GLUCONAT-SUCROSE 125 MG in SODIUM CHLORIDE 0.9% 100 ML IVPB SCH (16:11)
[2018-05-18 16:30] LABS: Glucose,Whole Blood 199 mg/dL (75-99)
[2018-05-18 21:08] LABS: Glucose,Whole Blood 139 mg/dL (75-99)
[2018-05-19 05:59] LABS: Glucose,Whole Blood 153 mg/dL (75-99)
[2018-05-19] MEDS: INSULIN ASPART 100 UNIT/ML 1 ML 10 ML VIAL SQ SCH ×4 (06:37→21:47)
[2018-05-19] MEDS: AMIODARONE 200 MG TAB PO SCH ×3 (08:40→21:48)
[2018-05-19] MEDS: LEVOFLOXACIN 500 MG TAB PO SCH (08:40)
[2018-05-19] MEDS: METOPROLOL TARTRATE 50 MG TAB PO SCH ×3 (08:40→21:48)
[2018-05-19] MEDS: PANTOPRAZOLE 40 MG/10 ML VIAL IVP SCH (08:41)
[2018-05-19] MEDS: methylPREDNISolone SOD SUCCI 40 MG/ML 1 ML VIAL IV SCH (08:41)
[2018-05-19] MEDS: SODIUM FERRIC GLUCONAT-SUCROSE 125 MG in SODIUM CHLORIDE 0.9% 100 ML IVPB SCH (08:49)
[2018-05-19] MEDS: IPRATROPIUM-ALBUTEROL 3 ML NEB INHALATION PRN ×4 (08:58→20:10)
[2018-05-19] MEDS: SYMBICORT 160-4.5 MCG INHALER INHALATION SCH ×2 (08:58→20:11)
--- NOTE | 2018-05-19 13:57 | P.PN ---
Subjective Progress Note Date: 05/19/18 Principal diagnosis: GI bleed, alcoholism, acute kidney injury Progress note dated 05/10/2018 This is a 77-year-old male, looks much older than his stated age, was admitted on May 04 for a GI bleed. The patient did have an EGD which was apparently negative for active bleeding. He also has a history of acute kidney injury low blood pressure and atrial fibrillation. He was X Dave 2 days ago. The patient 's currently on O2 at 4 L by nasal cannula. The patient's currently dextrose IV running at 80. It will be turned down to KVO. He is also on amiodarone at 0.5 mg/m. Since being here, the patient has received 6 units of PRBCs and 1 unit of fresh frozen plasma. CODE STATUS has not been addressed and should be addressed. Currently, the patient is a full code. The patient's very lethargic but does arouse. He mumbles words. Nothing is understandable. Apparently he's been this way since he was admitted and since he was extubated. Chest x-ray is consistent with mild fluid overload. I did have the opportunity to speak to the patient's daughter. She will talk to her brother and sister and make some decisions about CODE STATUS. She will get adequate dose later today. Progress note dated 05/11/2018 77-year-old male who actually looks much better today. He was admitted on May 04 for GI bleed. The patient did have an EGD which was negative for active bleeding. He also has a history of acute kidney injury, hypotension, and atrial fibrillation. The patient was extubated 2 days ago. Currently, the patient is on room air. The patient's IV is dextrose at 50 mL an hour he is currently on esmolol at 50 g and amiodarone at 1 mg. The patient declares to me that he would not want to be on life support. I did talk to the daughter about that. Currently he is in atrial fibrillation with a rate of 103. The patient looks much better today than he did yesterday. Chest x-rays consistent with fluid overload. He did fail his modified barium swallow yesterday but they 're coming back today to recheck him. He denies any pain or discomfort. Progress note dated 05/13/2018 77-year-old male who actually is much improved. He was admitted back on 2017 for GI bleed. The patient did have an EGD which was negative for active bleeding. He has a history of acute kidney injury, hypotension, which is resolved, and atrial fibrillation. The patient was extubated about 4 days ago. The patient is currently doing reasonably well. Some question about the patient's CODE STATUS. I asked the patient and his 2 daughters to get together and talk about it. He is not sure what he wants. Currently, he is a full code. Another issue with this patient as he is not receiving any nutrition. We will see if GI or interventional radiology complaining Dobbhoff so we can feed him enterally. If that's not possible, he does have a central line in place and we could see him by TPN. He has failed his modified barium swallow. Other than that, he is doing reasonably well and has improved. The patient is seen again today 05/14/2018 in follow-up on the selective care unit. He is currently awake and alert in no acute distress. He sitting up in a chair at the bedside. He denies any worsening shortness of breath, cough or congestion. He does continue to require 8 L high flow nasal cannula to maintain O2 saturations in the 90s. He's been afebrile. The plan is for GI services to insert a Dobbhoff tube for nutritional support. The patient is seen again today 05/15/2018 in follow-up on the selective care unit. He is currently sitting up in a chair at the bedside. He is awake and alert in no acute distress. He did undergo Dobbhoff placement and is currently receiving Vital AF 1.2 with a goal of 80 MLS per hour for nutritional support. He currently denies any worsening shortness of breath. He continues with a loose nonproductive cough. Chest x-ray does suggest some worsening bibasilar airspace disease and small bilateral pleural effusions. Suspect some chronic aspiration. He is currently on Levaquin and DuoNeb inhalations. We'll add Symbicort and IV Solu-Medrol. Progress note dated 05/16/2018 77-year-old male who was in the ICU for a number days. He was admitted back on May 04 for GI bleed. An EGD was done and was negative for active bleeding. In addition, he has a history of acute kidney injury, hypotension, which is improved in atrial fibrillation. The patient was mechanically ventilated but extubated on May 09. The patient currently is a full code according to him and his parents. A Dobbhoff tube was placed by interventional radiology but unfortunately was pulled out by the patient last night. The patient is confused. Not exhibiting any signs or symptoms of respiratory difficulty. In fact, most of the time, he is not wearing his oxygen. His vital signs are reasonably stable with a temperature of 97.6 heart rate 90 respiratory rate 18 blood pressure 115/78 with a mean of 90 and 97% saturation on high flow oxygen of 4 L. No new labs to report on this patient. The patient was seen again on 05/17/2018 in follow-up on the selective care unit. He is currently sitting up in a chair at the bedside. He is awake and alert in no acute distress. He denies any worsening shortness of breath, cough or congestion. Maintaining good O2 saturations in the upper 90s on 3 L/m per nasal cannula now. Chest x-ray reveals improved by basilar infiltrates. He's been afebrile. White count 6.5. Hemoglobin 8.6. Creatinine 1.25. He did undergo a barium swallow which revealed penetration with thin liquids and to a lesser degree with nectar thick liquids. No aspiration was evident. The patient is seen again today 05/18/2018 in follow-up on the selective care unit. He is again sitting up in a chair at the bedside. He remains awake and alert in no acute distress. He is maintaining O2 saturations in the mid 90s now on room air. No pulmonary complaints. He is tolerating a dysphagia level III chopped diet. The patient is seen again today 05/19/2018 in follow-up on the selective care unit. He is currently resting quite comfortably in bed. He is awake and alert in no acute distress. He is maintaining good O2 saturations in the mid 90s on room air. He's been afebrile. Hemodynamically stable. The plan is for discharge to [facility]. Objective - Vital Signs Vital signs: Vital Signs Temp 97.5 F L 05/19/18 12:41 Pulse 76 05/19/18 13:13 Resp 16 05/19/18 12:41 BP 121/62 05/19/18 12:41 Pulse Ox 96 05/19/18 12:41 Intake & Output 05/18/18 05/19/18 05/19/18 18:59 06:59 18:59 Intake Total 600 Output Total 800 Balance 600 -800 Weight 98.1 kg 98.1 kg Intake: Oral 600 Output: Urine 800 Other: Voiding Method Ileal Conduit (Right) Ileal Conduit (Right) ABP, PAP, CO, CI - Last Documented Arterial Blood Pressure 137/47 - Exam No apparent distress, the patient is much more awake and alert today, oriented 3, down to 2 L/m per nasal cannula. HEENT examination is grossly unremarkable. Mucous membranes are moist. Neck supple. Full range of motion. No adenopathy thyromegaly or neck vein distention. Cardiovascular examination reveals a irregular rhythm and rate. He is in atrial fibrillation at a rate of 103. S1-S2 normal. No heart murmur noted. Lungs reveal diminished breath sounds throughout. Some scattered bilateral rhonchi. Bibasilar crackles. Abdomen soft bowel sounds are heard. No masses or tenderness. Extremities are intact. No cyanosis clubbing or edema. Skin is without rash or lesion. Neurologic examination is brief but nonfocal. - Labs CBC & Chem 7: 05/17/18 05:23 05/18/18 05:42 Labs: Abnormal Lab Results - Last 24 Hours (Table) 05/18/18 05/18/18 05/19/18 Range/Units 16:18 21:05 05:57 POC Glucose (mg/dL) 199 H 139 H 153 H (75-99) mg/dL Assessment and Plan Assessment: Assessment Acute GI bleed, exacerbated by alcohol induced coagulopathy, with negative EGD Acute hypoxic respiratory failure secondary to suspected aspiration pneumonia. Acute kidney injury Acute blood loss anemia Chronic atrial fibrillation Alcoholic liver disease induced coagulopathy History of bladder/prostate cancer Metabolic acidosis, resolved Coronary artery disease, status post previous myocardial infarction. Cardiomyopathy with an ejection fraction of 25-30% Mental status changes Ventilator-dependent respiratory failure, resolved E. coli urinary tract infection Inadequate swallowing mechanism with likely aspiration Plan: The patient was seen and evaluated by Dr. Bhatt. He is stable for discharge from the pulmonary standpoint. His oxygen requirements have improved and he is down to room air. We'll continue with DuoNeb inhalations, Symbicort, DC Solu- Medrol and started on a prednisone taper. Continue to encourage use the incentive spirometer and cough and deep breathing exercises. Increase his diet as tolerated. Anticoagulation will need to be readdressed. I, the cosigning physician, performed a history & physical examination of the patient. Lungs sounds with bilateral scattered rhonchi, crackles in the bases. Maintaining good O2 saturations in the 90s on room air. I discussed the assessment and plan of care with my nurse practitioner, Octavia Wu. I attest to the above note as dictated by her.
[2018-05-19 16:39] LABS: Glucose,Whole Blood 183 mg/dL (75-99)
[2018-05-19 16:52] LABS: Glucose,Whole Blood 158 mg/dL (75-99)
[2018-05-19] MEDS: PYRIDOXINE 50 MG TAB PO SCH (17:27)
[2018-05-19 20:49] LABS: Glucose,Whole Blood 179 mg/dL (75-99)
[2018-05-20 05:48] LABS: Glucose,Whole Blood 112 mg/dL (75-99)
[2018-05-20] MEDS: INSULIN ASPART 100 UNIT/ML 1 ML 10 ML VIAL SQ SCH ×4 (05:53→21:46)
[2018-05-20] MEDS: SYMBICORT 160-4.5 MCG INHALER INHALATION SCH ×3 (09:05→21:36)
[2018-05-20] MEDS: IPRATROPIUM-ALBUTEROL 3 ML NEB INHALATION PRN ×2 (09:05→16:55)
[2018-05-20] MEDS: AMIODARONE 200 MG TAB PO SCH ×3 (09:23→20:14)
[2018-05-20] MEDS: LEVOFLOXACIN 500 MG TAB PO SCH (09:23)
[2018-05-20] MEDS: predniSONE 20 MG TAB PO SCH (09:24)
[2018-05-20] MEDS: METOPROLOL TARTRATE 50 MG TAB PO SCH ×3 (09:24→20:14)
[2018-05-20] MEDS: PANTOPRAZOLE 40 MG/10 ML VIAL IVP SCH (09:24)
[2018-05-20] MEDS: SODIUM FERRIC GLUCONAT-SUCROSE 125 MG in SODIUM CHLORIDE 0.9% 100 ML IVPB SCH (09:26)
[2018-05-20 11:02] VITALS: BMI 27.7
[2018-05-20 11:45] LABS: Glucose,Whole Blood 131 mg/dL (75-99)
--- NOTE | 2018-05-20 15:06 | P.PN ---
Subjective Progress Note Date: 05/20/18 Principal diagnosis: GI bleed, alcoholism, acute kidney injury Progress note dated 05/10/2018 This is a 77-year-old male, looks much older than his stated age, was admitted on May 04 for a GI bleed. The patient did have an EGD which was apparently negative for active bleeding. He also has a history of acute kidney injury low blood pressure and atrial fibrillation. He was X Dave 2 days ago. The patient 's currently on O2 at 4 L by nasal cannula. The patient's currently dextrose IV running at 80. It will be turned down to KVO. He is also on amiodarone at 0.5 mg/m. Since being here, the patient has received 6 units of PRBCs and 1 unit of fresh frozen plasma. CODE STATUS has not been addressed and should be addressed. Currently, the patient is a full code. The patient's very lethargic but does arouse. He mumbles words. Nothing is understandable. Apparently he's been this way since he was admitted and since he was extubated. Chest x-ray is consistent with mild fluid overload. I did have the opportunity to speak to the patient's daughter. She will talk to her brother and sister and make some decisions about CODE STATUS. She will get adequate dose later today. Progress note dated 05/11/2018 77-year-old male who actually looks much better today. He was admitted on May 04 for GI bleed. The patient did have an EGD which was negative for active bleeding. He also has a history of acute kidney injury, hypotension, and atrial fibrillation. The patient was extubated 2 days ago. Currently, the patient is on room air. The patient's IV is dextrose at 50 mL an hour he is currently on esmolol at 50 g and amiodarone at 1 mg. The patient declares to me that he would not want to be on life support. I did talk to the daughter about that. Currently he is in atrial fibrillation with a rate of 103. The patient looks much better today than he did yesterday. Chest x-rays consistent with fluid overload. He did fail his modified barium swallow yesterday but they 're coming back today to recheck him. He denies any pain or discomfort. Progress note dated 05/13/2018 77-year-old male who actually is much improved. He was admitted back on 2017 for GI bleed. The patient did have an EGD which was negative for active bleeding. He has a history of acute kidney injury, hypotension, which is resolved, and atrial fibrillation. The patient was extubated about 4 days ago. The patient is currently doing reasonably well. Some question about the patient's CODE STATUS. I asked the patient and his 2 daughters to get together and talk about it. He is not sure what he wants. Currently, he is a full code. Another issue with this patient as he is not receiving any nutrition. We will see if GI or interventional radiology complaining Dobbhoff so we can feed him enterally. If that's not possible, he does have a central line in place and we could see him by TPN. He has failed his modified barium swallow. Other than that, he is doing reasonably well and has improved. The patient is seen again today 05/14/2018 in follow-up on the selective care unit. He is currently awake and alert in no acute distress. He sitting up in a chair at the bedside. He denies any worsening shortness of breath, cough or congestion. He does continue to require 8 L high flow nasal cannula to maintain O2 saturations in the 90s. He's been afebrile. The plan is for GI services to insert a Dobbhoff tube for nutritional support. The patient is seen again today 05/15/2018 in follow-up on the selective care unit. He is currently sitting up in a chair at the bedside. He is awake and alert in no acute distress. He did undergo Dobbhoff placement and is currently receiving Vital AF 1.2 with a goal of 80 MLS per hour for nutritional support. He currently denies any worsening shortness of breath. He continues with a loose nonproductive cough. Chest x-ray does suggest some worsening bibasilar airspace disease and small bilateral pleural effusions. Suspect some chronic aspiration. He is currently on Levaquin and DuoNeb inhalations. We'll add Symbicort and IV Solu-Medrol. Progress note dated 05/16/2018 77-year-old male who was in the ICU for a number days. He was admitted back on May 04 for GI bleed. An EGD was done and was negative for active bleeding. In addition, he has a history of acute kidney injury, hypotension, which is improved in atrial fibrillation. The patient was mechanically ventilated but extubated on May 09. The patient currently is a full code according to him and his parents. A Dobbhoff tube was placed by interventional radiology but unfortunately was pulled out by the patient last night. The patient is confused. Not exhibiting any signs or symptoms of respiratory difficulty. In fact, most of the time, he is not wearing his oxygen. His vital signs are reasonably stable with a temperature of 97.6 heart rate 90 respiratory rate 18 blood pressure 115/78 with a mean of 90 and 97% saturation on high flow oxygen of 4 L. No new labs to report on this patient. The patient was seen again on 05/17/2018 in follow-up on the selective care unit. He is currently sitting up in a chair at the bedside. He is awake and alert in no acute distress. He denies any worsening shortness of breath, cough or congestion. Maintaining good O2 saturations in the upper 90s on 3 L/m per nasal cannula now. Chest x-ray reveals improved by basilar infiltrates. He's been afebrile. White count 6.5. Hemoglobin 8.6. Creatinine 1.25. He did undergo a barium swallow which revealed penetration with thin liquids and to a lesser degree with nectar thick liquids. No aspiration was evident. The patient is seen again today 05/18/2018 in follow-up on the selective care unit. He is again sitting up in a chair at the bedside. He remains awake and alert in no acute distress. He is maintaining O2 saturations in the mid 90s now on room air. No pulmonary complaints. He is tolerating a dysphagia level III chopped diet. The patient is seen again today 05/19/2018 in follow-up on the selective care unit. He is currently resting quite comfortably in bed. He is awake and alert in no acute distress. He is maintaining good O2 saturations in the mid 90s on room air. He's been afebrile. Hemodynamically stable. The plan is for discharge to [facility]. Patient was seen again today 05/20/2018 in follow-up on the selective care unit. He is currently sitting up in a chair at bedside. He is awake and alert in no acute distress. He denies any worsening shortness of breath, cough or congestion. He is maintaining O2 saturations in the 90s on room air now. He is continued on DuoNeb inhalations, Symbicort and a prednisone taper and Levaquin. Objective - Vital Signs Vital signs: Vital Signs Temp 97.6 F 05/20/18 04:00 Pulse 74 05/20/18 12:00 Resp 18 05/20/18 12:00 BP 121/78 05/20/18 12:00 Pulse Ox 94 L 05/20/18 12:00 Intake & Output 05/19/18 05/20/18 05/20/18 18:59 06:59 18:59 Intake Total 240 10 200 Output Total 800 3000 Balance -560 -2990 200 Weight 98.1 kg 95.3 kg 95.3 kg Intake: IV 10 Invasive Line 10 10 Oral 240 200 Output: Urine 800 3000 Other: Voiding Method Ileal Conduit (Right) Ileal Conduit (Right) # Bowel Movements 0 ABP, PAP, CO, CI - Last Documented Arterial Blood Pressure 137/47 - Exam No apparent distress, the patient is much more awake and alert today, oriented 3, on room air. HEENT examination is grossly unremarkable. Mucous membranes are moist. Neck supple. Full range of motion. No adenopathy thyromegaly or neck vein distention. Cardiovascular examination reveals a irregular rhythm and rate. He is in atrial fibrillation at a rate of 103. S1-S2 normal. No heart murmur noted. Lungs reveal diminished breath sounds throughout. Abdomen soft bowel sounds are heard. No masses or tenderness. Extremities are intact. No cyanosis clubbing or edema. Skin is without rash or lesion. Neurologic examination is brief but nonfocal. - Labs CBC & Chem 7: 05/17/18 05:23 05/18/18 05:42 Labs: Abnormal Lab Results - Last 24 Hours (Table) 05/19/18 05/19/18 05/19/18 Range/Units 11:54 16:50 20:48 POC Glucose (mg/dL) 183 H 158 H 179 H (75-99) mg/dL 05/20/18 05/20/18 Range/Units 05:43 11:43 POC Glucose (mg/dL) 112 H 131 H (75-99) mg/dL Assessment and Plan Assessment: Assessment Acute GI bleed, exacerbated by alcohol induced coagulopathy, with negative EGD Acute hypoxic respiratory failure secondary to suspected aspiration pneumonia. Acute kidney injury Acute blood loss anemia Chronic atrial fibrillation Alcoholic liver disease induced coagulopathy History of bladder/prostate cancer Metabolic acidosis, resolved Coronary artery disease, status post previous myocardial infarction. Cardiomyopathy with an ejection fraction of 25-30% Mental status changes Ventilator-dependent respiratory failure, resolved E. coli urinary tract infection Inadequate swallowing mechanism with likely aspiration Plan: The patient was seen and evaluated by Dr. Bhatt. He is stable for discharge from the pulmonary standpoint. Currently receiving IV iron. We'll continue with DuoNeb inhalations, Symbicort, prednisone taper. Continue to encourage use the incentive spirometer and cough and deep breathing exercises. Increase his diet as tolerated. I, the cosigning physician, performed a history & physical examination of the patient. Lungs sounds with bilateral scattered rhonchi, crackles in the bases. Maintaining good O2 saturations in the 90s on room air. I discussed the assessment and plan of care with my nurse practitioner, Octavia Wu. I attest to the above note as dictated by her.
--- NOTE | 2018-05-20 15:43 | PN ---
PROGRESS NOTE DATE OF SERVICE: 05/17/2018 CHIEF COMPLAINT: Status post hypovolemic shock from upper GI bleed. HISTORY OF PRESENT ILLNESS: This gentleman continues to do well. His diet and activity are advancing. We are working on a discharge plan for a fdc. PHYSICAL EXAMINATION: Chest is clear. Cardiac exam demonstrates atrial fibrillation. Abdomen is soft, nontender. His mentation is improving daily. IMPRESSION: 1. Status post hypovolemic shock from upper gastrointestinal bleed. 2. Renal failure. 3. Mild anoxic encephalopathy, improving. PLAN: No change in program. Look for rehab center for discharge. MMODL / IJN: [id number] /
--- NOTE | 2018-05-20 16:13 | PN ---
PROGRESS NOTE DATE OF SERVICE: 05/18/2018 CHIEF COMPLAINT: Status post hypovolemic shock, renal failure, and encephalopathy from upper GI bleed. HISTORY OF PRESENT ILLNESS: This gentleman is slowly making progress. He is still extremely weak, but he is oriented and has no focal deficits. Rehab location is being awaited. PHYSICAL EXAM: Slightly pale. Chest is clear. Cardiac exam is normal except for his atrial fibrillation. Abdomen is soft and extremities normal. IMPRESSION: 1. Status post upper gastrointestinal hemorrhage with hypovolemic shock. 2. Blood loss anemia. 3. Atrial fibrillation. 4. Renal failure. 5. Mild encephalopathy-improving. PLAN: No change in program and wait for discharge plan. MMODL / IJN: [id number] /
[2018-05-20] MEDS: PYRIDOXINE 50 MG TAB PO SCH (16:25)
--- NOTE | 2018-05-20 16:28 | PN ---
PROGRESS NOTE DATE OF SERVICE: 05/19/2018. CHIEF COMPLAINT: Status post encephalopathy from hypovolemic shock. HISTORY OF PRESENT ILLNESS: This gentleman continues to improve and we are waiting for discharge plan and location. He had a swallow evaluation which apparently demonstrates that his function is nearly normal. PHYSICAL EXAM: He is oriented and alert. Chest is clear and cardiac exam is unchanged with atrial fibrillation. IMPRESSION: 1. Hypovolemic shock. 2. Upper gastrointestinal hemorrhage. 3. Renal failure. 4. Mild encephalopathy. 5. History of carcinoma of the bladder. 6. Renal failure. PLAN: He is cleared to be discharged from my point of view and we are awaiting group home placement. MMODL / IJN: [id number] /
--- NOTE | 2018-05-20 16:34 | PN ---
PROGRESS NOTE DATE OF SERVICE: 05/20/2018 CHIEF COMPLAINT: Status post upper GI bleed. HISTORY OF PRESENT ILLNESS: There has been no interval change. Awaiting for this gentleman to be cleared to go to [facility]. PHYSICAL EXAM: Chest is clear. Cardiac exam is unchanged. Abdomen is soft, nontender. He is awake and alert. IMPRESSION: 1. Status post upper gastrointestinal hemorrhage with hypovolemic shock. 2. Blood loss anemia. 3. Atrial fibrillation. 4. Renal failure. 5. Mild anoxic encephalopathy. PLAN: Possibly discharge to [facility] today. MMODL / IJN: [id number] /
[2018-05-20 16:50] LABS: Glucose,Whole Blood 174 mg/dL (75-99)
[2018-05-20 21:11] LABS: Glucose,Whole Blood 191 mg/dL (75-99)
[2018-05-21 05:54] LABS: Glucose,Whole Blood 102 mg/dL (75-99)
[2018-05-21] MEDS: INSULIN ASPART 100 UNIT/ML 1 ML 10 ML VIAL SQ SCH (05:55)
[2018-05-21 07:14] LABS: Anisocytosis Slight; Basophils % (A) 0 %; Eosinophils % (A) 1 %; HCT 29.5 % (39.0-53.0); HGB 8.7 gm/dL (13.0-17.5); Hypochromasia Marked; Lymphocytes # (A) 1.1 k/uL (1.0-4.8); Lymphocytes % (A) 13 %; MCH 26.9 pg (25.0-35.0); MCHC 29.5 g/dL (31.0-37.0); MCV 91.3 fL (80.0-100.0); Mean Platelet Volume 13.7; Monocytes # (A) 0.6 k/uL (0-1.0); Monocytes % (A) 7 %; Neutrophils # (A) 6.5 k/uL (1.3-7.7); Neutrophils % (A) 78 %; Platelet Count 88 k/uL (150-450); Poikilocytosis Slight; RBC 3.24 m/uL (4.30-5.90); RDW 19.5 % (11.5-15.5); WBC 8.3 k/uL (3.8-10.6)
[2018-05-21 07:21] LABS: Calcium 9.8 mg/dL (8.4-10.2); Potassium 3.8 mmol/L (3.5-5.1)
[2018-05-21] MEDS: SYMBICORT 160-4.5 MCG INHALER INHALATION SCH (07:55)
[2018-05-21 08:02] LABS: Large Platelets Present
[2018-05-21 09:28] VITALS: RESP 16; TEMP 97
[2018-05-21] MEDS: AMIODARONE 200 MG TAB PO SCH (09:30)
[2018-05-21] MEDS: METOPROLOL TARTRATE 50 MG TAB PO SCH (09:30)
[2018-05-21] MEDS: LEVOFLOXACIN 500 MG TAB PO SCH (09:30)
[2018-05-21] MEDS: SODIUM FERRIC GLUCONAT-SUCROSE 125 MG in SODIUM CHLORIDE 0.9% 100 ML IVPB SCH (09:31)
[2018-05-21] MEDS: PANTOPRAZOLE 40 MG/10 ML VIAL IVP SCH (09:31)
[2018-05-21] MEDS: predniSONE 20 MG TAB PO SCH (09:31)
[2018-05-21 11:43] LABS: Glucose,Whole Blood 113 mg/dL (75-99)
[2018-05-21 12:56] VITALS: BP 123/67; PULSE 97
--- NOTE | 2018-05-21 18:02 | DS ---
DISCHARGE SUMMARY CHIEF COMPLAINT: Upper gastrointestinal hemorrhage, hypovolemic shock, blood-loss anemia, renal failure and encephalopathy. HISTORY OF PRESENT ILLNESS AND PHYSICAL EXAM: Details of this man's history and physical can be found in the initial workup. LABORATORY STUDIES: While he was in a hospital he had laboratory studies, details which can be found in the laboratory section of his chart. COURSE IN HOSPITAL: After admission he was placed in bedrest, started on intravenous fluids and placed in ICU where he received numerous transfusions and required pressors. He was on the ventilator for days and did develop renal failure. Eventually he was able to be taken off of the ventilator and he had obvious encephalopathy which slowly cleared. He was moved out to the [facility] and gradually improved, but was still felt a hospitalization physical therapy would be helpful and at the time of the dictation we are waiting for residential. FINAL DIAGNOSES: 1. Hypovolemic shock. 2. Upper gastrointestinal hemorrhage. 3. Blood loss anemia. 4. Renal failure. 5. Hypoxic encephalopathy. 6. History of carcinoma of the bladder. 7. Atrial fibrillation. OPERATIONS: None. CONSULTATIONS: Intensive Medicine and Med Renal. He is improved. MMODL / IJN: [id number] /
--- NOTE | 2018-05-24 14:13 | CDI ---
Last Revision, August 2017 Documentation Clarification Form Date: 05/24/18 From: Amber Sukhdev Vidya Nguyễn, Insurance Legal Assistant Hours-8:30 am & 5 pm Jamin Admit Date: 05/04/2018 8:57:00 PM Patient Name: Baudilio Putnam Visit Number: [id number] Discharge Date: 05/21/18 ATTENTION: The Clinical Documentation Specialists (CDI) and [facility] Coding Staff appreciate your assistance in clarifying documentation. Please respond to the clarification below the line at the bottom and electronically sign. The CDI & [facility] Coding staff will review the response and follow-up if needed. Please note: Queries are made part of the Legal Health Record. If you have any questions, please contact the author of this message via ITS. Pham Presley MD History/Risk Factors: GI bleed Clinical Indicators: VS/Pulse OX: T-97.1, R-110, R-18, BP-91/65 BNP: none Echocardiogram Results: left ventricular systolic function is severely impaired with an EF between 25-30% Chest X Ray: probably mild CHF. Treatment: IV Lasix In your professional opinion, can you please clarify the acuity and type of CHF if known? Systolic Heart Failure Diastolic Heart Failure Systolic & Diastolic Heart Failure Acute Chronic Acute on Chronic Heart Failure Unable to Determine Other, please specify Please continue to document in your progress notes and discharge summary in order to capture severity of illness and risk of mortality. Include clinical findings that support your diagnosis. MTDD
--- NOTE | 2018-06-07 15:13 | P.PN ---
Progress Note - Text Progress Note Date: 06/07/18 This is an addendum to the cardiology progress note, Patient has systolic chf, acute on chronic.
== END 2018-05-21 16:57 | disposition home health service (06) | DRG 377 ==
LOC: EC 19:18 → 6ICU 20:57 → 6SEL 05-12 04:35
PROVIDERS: ADMIT Family Medicine; ATTEND Family Medicine
PROC: 5A1955Z Respiratory Ventilation, Greater than 96 Consecutive Hours (ICD-10-PCS; principal; 2018-05-04)
PROC: 0BH17EZ Insertion of Endotracheal Airway into Trachea, Via Natural or Artificial Opening (ICD-10-PCS; 2018-05-04)
PROC: 05HM33Z Insertion of Infusion Device into Right Internal Jugular Vein, Percutaneous Approach (ICD-10-PCS; 2018-05-04)
PROC: 30233K1 Transfusion of Nonautologous Frozen Plasma into Peripheral Vein, Percutaneous Approach (ICD-10-PCS; 2018-05-04)
PROC: 30233N1 Transfusion of Nonautologous Red Blood Cells into Peripheral Vein, Percutaneous Approach (ICD-10-PCS; 2018-05-04)
PROC: 03HY32Z Insertion of Monitoring Device into Upper Artery, Percutaneous Approach (ICD-10-PCS; 2018-05-04)
PROC: 4A133B1 Monitoring of Arterial Pressure, Peripheral, Percutaneous Approach (ICD-10-PCS; 2018-05-04)
PROC: 4A133J1 Monitoring of Arterial Pulse, Peripheral, Percutaneous Approach (ICD-10-PCS; 2018-05-04)
PROC: 0D9670Z Drainage of Stomach with Drainage Device, Via Natural or Artificial Opening (ICD-10-PCS; 2018-05-05)
PROC: 0DJ08ZZ Inspection of Upper Intestinal Tract, Via Natural or Artificial Opening Endoscopic (ICD-10-PCS; 2018-05-07)
PROC: 0DH68UZ Insertion of Feeding Device into Stomach, Via Natural or Artificial Opening Endoscopic (ICD-10-PCS; 2018-05-14)
PROC: 3E0G76Z Introduction of Nutritional Substance into Upper GI, Via Natural or Artificial Opening (ICD-10-PCS; 2018-05-14)
DX: K92.2 Gastrointestinal hemorrhage, unspecified (principal); I46.9 Cardiac arrest, cause unspecified; N17.0 Acute kidney failure with tubular necrosis; J96.01 Acute respiratory failure with hypoxia; R57.1 Hypovolemic shock; R57.0 Cardiogenic shock; J69.0 Pneumonitis due to inhalation of food and vomit; I50.23 Acute on chronic systolic (congestive) heart failure; D62 Acute posthemorrhagic anemia; E87.2 Acidosis; D68.4 Acquired coagulation factor deficiency; I42.9 Cardiomyopathy, unspecified; K22.10 Ulcer of esophagus without bleeding; N13.6 Pyonephrosis; E87.1 Hypo-osmolality and hyponatremia; E87.0 Hyperosmolality and hypernatremia; J90 Pleural effusion, not elsewhere classified; G93.1 Anoxic brain damage, not elsewhere classified; I47.1 Supraventricular tachycardia; E86.1 Hypovolemia; E87.5 Hyperkalemia; I48.2 Chronic atrial fibrillation; J43.9 Emphysema, unspecified; E87.70 Fluid overload, unspecified; I27.20 Pulmonary hypertension, unspecified; K26.9 Duodenal ulcer, unspecified as acute or chronic, without hemorrhage or perforation; K70.9 Alcoholic liver disease, unspecified; F10.20 Alcohol dependence, uncomplicated; I08.0 Rheumatic disorders of both mitral and aortic valves; E87.6 Hypokalemia; B96.20 Unspecified Escherichia coli [E. coli] as the cause of diseases classified elsewhere; I25.10 Atherosclerotic heart disease of native coronary artery without angina pectoris; K29.80 Duodenitis without bleeding; I10 Essential (primary) hypertension; T45.515A Adverse effect of anticoagulants, initial encounter; I25.2 Old myocardial infarction; H91.90 Unspecified hearing loss, unspecified ear; Z91.81 History of falling; Z79.01 Long term (current) use of anticoagulants; Z79.899 Other long term (current) drug therapy; Z87.891 Personal history of nicotine dependence; Z85.51 Personal history of malignant neoplasm of bladder; Z85.46 Personal history of malignant neoplasm of prostate; Z93.6 Other artificial openings of urinary tract status; Z92.21 Personal history of antineoplastic chemotherapy; Z87.11 Personal history of peptic ulcer disease; Z86.73 Personal history of transient ischemic attack (TIA), and cerebral infarction without residual deficits; Z90.6 Acquired absence of other parts of urinary tract; R47.02 Dysphasia; R13.12 Dysphagia, oropharyngeal phase; R29.6 Repeated falls; R63.3 Feeding difficulties; R19.7 Diarrhea, unspecified
CPT/HCPCS: 31500; 36415; 36556; 36600; 43235; 70450; 71045; 71046; 74230; 76770; 80048; 80053; 81001; 82272; 82550; 82553; 82728; 82805; 83036; 83540; 83550; 83605; 83735; 84100; 84295; 84484; 85025; 85027; 85610; 85730; 86850; 86900; 86901; 86920; 87040; 87077; 87086; 87186; 93005; 93306; 94002; 94003; 94640; 94760; 96361; 96365; 96367; 96375; 99291

== ENCOUNTER → 2018-06-09 | Outpatient (CLI) | payer MEDICARE ==
--- NOTE | 2018-06-09 14:32 | CT ---
EXAMINATION TYPE: CT abdomen pelvis wo con DATE OF EXAM: 06/09/2018 COMPARISON: 01/03/2016 HISTORY: Hematuria, Abdominal pain CT DLP: 735.70 mGycm Examination of the solid and hollow viscera is limited given the lack of contrast. FINDINGS: LUNG BASES: No evidence for nodule. No evidence for infiltrate. Small to moderate bilateral pleural e ffusions. Mild compressive atelectasis at the lung bases. LIVER/GB: The gallbladder is unremarkable. No space-occupying hepatic lesion. PANCREAS: No pancreatic mass identified. No inflammatory process seen. SPLEEN: No evidence for splenomegaly. No intrasplenic lesions seen. ADRENALS: No adrenal nodules identified. No evidence for thickening. KIDNEYS: There is been removal of the urinary bladder. 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 There is h ydronephrosis noted bilaterally considered mild to moderate in degree. This does represent a new find ing relative to the prior examination. I do not see evidence for calculus or mass. BOWEL: Appendix has a normal appearance. No evidence of bowel obstruction. No inflammatory process. Lymph nodes: No evidence for adenopathy greater than 1 cm. Abdominal aorta: Atheromatous changes seen. No evidence for aneurysm. Genital organs: No significant abnormality. Other: No significant abnormality. IMPRESSION: 1. Status post cystectomy with diverging ileostomy. Bilateral hydronephrosis of uncertain etiology.
== END | disposition home or self-care (01) ==
LOC: RADCTMAIN 11:38
PROVIDERS: ATTEND Family Medicine
DX: N13.30 Unspecified hydronephrosis (principal); Z90.6 Acquired absence of other parts of urinary tract
CPT/HCPCS: 74176; 82565; 84520

== ENCOUNTER 2018-06-16 12:13 | Inpatient (IN) | payer MEDICARE ==
--- NOTE | 2018-06-16 13:20 | ED ---
Recheck HPI - General Chief Complaint: Recheck/Abnormal Lab/Rx Stated Complaint: Low Hemoglobin, Abnormal Labs Time Seen by Provider: 06/16/18 12:45 Source: patient, family, RN notes reviewed, old records reviewed Mode of arrival: wheelchair Limitations: no limitations - History of Present Illness Initial Comments: This is a 77-year-old male who was sent in by his doctor for a low hemoglobin level. Patient is feeling weak and tired recently and a blood draw yesterday which showed a hemoglobin level that was low. He does say he's been having dark colored stools not vomiting but he has had some hematuria. No overt abdominal pain but he states he has been feeling full. No other modifying factors at this time is on blood thinners. MD Complaint: abnormal lab - Related Data Home Medications Medication Instructions Recorded Confirmed Isosorbide Mononitrate [Isosorbide 30 mg PO DAILY 01/02/16 06/16/18 Mononitrate ER] Metoprolol Tartrate [Lopressor] 75 mg PO BID 05/04/18 06/16/18 Ferrous Sulfate [Feosol] 325 mg PO TID 06/16/18 06/16/18 Omeprazole 20 mg PO BID 06/16/18 06/16/18 Spironolactone [Aldactone] 25 mg PO DAILY 06/16/18 06/16/18 Warfarin [Coumadin] 5 mg PO DAILY 06/16/18 06/16/18 Previous Rx's Medication Instructions Recorded Furosemide [Lasix] 40 mg PO DAILY #30 tab 01/08/16 Lisinopril [Zestril] 2.5 mg PO DAILY #30 tab 01/08/16 Ipratropium-Albuterol Nebulize 3 ml INHALATION RT-Q12H PRN #60 05/21/18 [Duoneb 0.5 mg-3 mg/3 ml Soln] ampul.neb Allergies Allergy/AdvReac Type Severity Reaction Status Date / Time No Known Allergies Allergy Verified 06/16/18 12:32 Review of Systems ROS Statement: Those systems with pertinent positive or pertinent negative responses have been documented in the HPI. ROS Other: All systems not noted in ROS Statement are negative. Past Medical History Past Medical History: Atrial Fibrillation, Cancer, Myocardial Infarction ([place]) Additional Past Medical History / Comment(s): bladder ca, prostate ca had sx( urostomy) and 1 round of chemo in 06, afib, [place], hemorhoids, pt stated he was told by a dr that he had an enlarged heart, [place] Last Myocardial Infarction Date:: 2002 History of Any Multi-Drug Resistant Organisms: None Reported Past Surgical History: Adenoidectomy, Tonsillectomy Additional Past Surgical History / Comment(s): bladder and prostate removal-has urostomy Past Anesthesia/Blood Transfusion Reactions: No Reported Reaction Past Psychological History: No Psychological Hx Reported Smoking Status: Former smoker Past Alcohol Use History: Daily Past Drug Use History: None Reported - Past Family History Father Family Medical History: No Reported History Mother Family Medical History: No Reported History General Exam - General Exam Comments Initial Comments: This a well-developed well-nourished awake alert oriented 3 male Limitations: no limitations General appearance: alert, in no apparent distress Head exam: Present: atraumatic, normocephalic, normal inspection Eye exam: Present: normal appearance, PERRL, EOMI. Absent: scleral icterus, conjunctival injection, periorbital swelling ENT exam: Present: normal exam, mucous membranes moist Neck exam: Present: normal inspection. Absent: tenderness, meningismus, lymphadenopathy Respiratory exam: Present: normal lung sounds bilaterally. Absent: respiratory distress, wheezes, rales, rhonchi, stridor Cardiovascular Exam: Present: regular rate, normal rhythm, normal heart sounds. Absent: systolic murmur, diastolic murmur, rubs, gallop, clicks GI/Abdominal exam: Present: soft, normal bowel sounds. Absent: distended, tenderness, guarding, rebound, rigid Rectal exam: Present: normal inspection, heme (+) stool, black stool Extremities exam: Present: normal inspection, full ROM, normal capillary refill. Absent: tenderness, pedal edema, joint swelling, calf tenderness Back exam: Present: normal inspection Neurological exam: Present: alert, oriented X3, CN II-XII intact Psychiatric exam: Present: normal affect, normal mood Skin exam: Present: warm, dry, intact, pallor. Absent: normal color, rash Course Vital Signs 06/16/18 06/16/18 06/16/18 12:30 13:53 14:50 Temperature 97.6 F Pulse Rate 88 95 Respiratory 20 18 18 Rate Blood Pressure 108/60 122/91 O2 Sat by Pulse 95 95 Oximetry Medical Decision Making - Medical Decision Making I did reevaluate patient several occasions I did discuss findings with him and his family. Acid discuss case with Dr. De Leon and Dr. Hickey. The patient be admitted ICU blood transfusions have been ordered. Patient be evaluated not only by GI but also by nephrology. - Lab Data Result diagrams: 06/16/18 13:30 06/16/18 13:30 Lab Results 06/16/18 06/16/18 06/16/18 Range/Units 13:27 13:30 13:30 WBC 5.8 (3.8-10.6) k/uL RBC 1.75 L (4.30-5.90) m/uL Hgb 5.2 L* (13.0-17.5) gm/dL Hct 16.2 L* (39.0-53.0) % MCV 92.7 (80.0-100.0) fL MCH 29.5 (25.0-35.0) pg MCHC 31.8 (31.0-37.0) g/dL RDW 19.4 H (11.5-15.5) % Plt Count 129 L (150-450) k/uL Neutrophils % 69 % Lymphocytes % 14 % Monocytes % 13 % Eosinophils % 1 % Basophils % 0 % Neutrophils # 4.0 (1.3-7.7) k/uL Lymphocytes # 0.8 L (1.0-4.8) k/uL Monocytes # 0.8 (0-1.0) k/uL Eosinophils # 0.1 (0-0.7) k/uL Basophils # 0.0 (0-0.2) k/uL Manual Slide Review Performed Polychromasia Present Hypochromasia Marked Poikilocytosis Slight Anisocytosis Slight Ovalocytes Present PT (9.0-12.0) sec INR (<1.2) APTT (22.0-30.0) sec Sodium (137-145) mmol/L Potassium (3.5-5.1) mmol/L Chloride (98-107) mmol/L Carbon Dioxide (22-30) mmol/L Anion Gap mmol/L BUN (9-20) mg/dL Creatinine (0.66-1.25) mg/dL Est GFR (CKD-EPI)AfAm (>60 ml/min/1.73 sqM) Est GFR (CKD-EPI)NonAf (>60 ml/min/1.73 sqM) Glucose (74-99) mg/dL Calcium (8.4-10.2) mg/dL Magnesium (1.6-2.3) mg/dL Total Bilirubin (0.2-1.3) mg/dL AST (17-59) U/L ALT (21-72) U/L Alkaline Phosphatase (38-126) U/L Total Creatine Kinase 23 L (55-170) U/L CK-MB (CK-2) 1.5 (0.0-2.4) ng/mL CK-MB (CK-2) Rel Index 6.5 Troponin I <0.012 (0.000-0.034) ng/mL Total Protein (6.3-8.2) g/dL Albumin (3.5-5.0) g/dL Urine Color Urine Appearance (Clear) Urine pH (5.0-8.0) Ur Specific [place] (1.001-1.035) Urine Protein (Negative) Urine Glucose (UA) (Negative) Urine Ketones (Negative) Urine Blood (Negative) Urine Nitrite (Negative) Urine Bilirubin (Negative) Urine Urobilinogen (<2.0) mg/dL Ur Leukocyte Esterase (Negative) Urine RBC (0-5) /hpf Urine WBC (0-5) /hpf Ur Squamous Epith Cells (0-4) /hpf Urine Bacteria (None) /hpf Urine Mucus (None) /hpf Stool Occult Blood Positive (Negative) Blood Type Blood Type Recheck Antibody Screen Spec Expiration Date 06/16/18 06/16/18 06/16/18 Range/Units 13:30 13:30 13:30 WBC (3.8-10.6) k/uL RBC (4.30-5.90) m/uL Hgb (13.0-17.5) gm/dL Hct (39.0-53.0) % MCV (80.0-100.0) fL MCH (25.0-35.0) pg MCHC (31.0-37.0) g/dL RDW (11.5-15.5) % Plt Count (150-450) k/uL Neutrophils % % Lymphocytes % % Monocytes % % Eosinophils % % Basophils % % Neutrophils # (1.3-7.7) k/uL Lymphocytes # (1.0-4.8) k/uL Monocytes # (0-1.0) k/uL Eosinophils # (0-0.7) k/uL Basophils # (0-0.2) k/uL Manual Slide Review Polychromasia Hypochromasia Poikilocytosis Anisocytosis Ovalocytes PT 73.7 H (9.0-12.0) sec INR 8.0 H* (<1.2) APTT 49.4 H (22.0-30.0) sec Sodium 140 (137-145) mmol/L Potassium 4.8 (3.5-5.1) mmol/L Chloride 108 H (98-107) mmol/L Carbon Dioxide 20 L (22-30) mmol/L Anion Gap 12 mmol/L BUN 74 H (9-20) mg/dL Creatinine 4.05 H (0.66-1.25) mg/dL Est GFR (CKD-EPI)AfAm 16 (>60 ml/min/1.73 sqM) Est GFR (CKD-EPI)NonAf 14 (>60 ml/min/1.73 sqM) Glucose 91 (74-99) mg/dL Calcium 8.8 (8.4-10.2) mg/dL Magnesium 1.7 (1.6-2.3) mg/dL Total Bilirubin 0.3 (0.2-1.3) mg/dL AST 20 (17-59) U/L ALT 21 (21-72) U/L Alkaline Phosphatase 55 (38-126) U/L Total Creatine Kinase (55-170) U/L CK-MB (CK-2) (0.0-2.4) ng/mL CK-MB (CK-2) Rel Index Troponin I (0.000-0.034) ng/mL Total Protein 5.9 L (6.3-8.2) g/dL Albumin 3.0 L (3.5-5.0) g/dL Urine Color Urine Appearance (Clear) Urine pH (5.0-8.0) Ur Specific [place] (1.001-1.035) Urine Protein (Negative) Urine Glucose (UA) (Negative) Urine Ketones (Negative) Urine Blood (Negative) Urine Nitrite (Negative) Urine Bilirubin (Negative) Urine Urobilinogen (<2.0) mg/dL Ur Leukocyte Esterase (Negative) Urine RBC (0-5) /hpf Urine WBC (0-5) /hpf Ur Squamous Epith Cells (0-4) /hpf Urine Bacteria (None) /hpf Urine Mucus (None) /hpf Stool Occult Blood (Negative) Blood Type O Positive Blood Type Recheck No Antibody Screen NEGATIVE Spec Expiration Date 06/19/2018 - 232906/16/18 Range/Units 15:32 WBC (3.8-10.6) k/uL RBC (4.30-5.90) m/uL Hgb (13.0-17.5) gm/dL Hct (39.0-53.0) % MCV (80.0-100.0) fL MCH (25.0-35.0) pg MCHC (31.0-37.0) g/dL RDW (11.5-15.5) % Plt Count (150-450) k/uL Neutrophils % % Lymphocytes % % Monocytes % % Eosinophils % % Basophils % % Neutrophils # (1.3-7.7) k/uL Lymphocytes # (1.0-4.8) k/uL Monocytes # (0-1.0) k/uL Eosinophils # (0-0.7) k/uL Basophils # (0-0.2) k/uL Manual Slide Review Polychromasia Hypochromasia Poikilocytosis Anisocytosis Ovalocytes PT (9.0-12.0) sec INR (<1.2) APTT (22.0-30.0) sec Sodium (137-145) mmol/L Potassium (3.5-5.1) mmol/L Chloride (98-107) mmol/L Carbon Dioxide (22-30) mmol/L Anion Gap mmol/L BUN (9-20) mg/dL Creatinine (0.66-1.25) mg/dL Est GFR (CKD-EPI)AfAm (>60 ml/min/1.73 sqM) Est GFR (CKD-EPI)NonAf (>60 ml/min/1.73 sqM) Glucose (74-99) mg/dL Calcium (8.4-10.2) mg/dL Magnesium (1.6-2.3) mg/dL Total Bilirubin (0.2-1.3) mg/dL AST (17-59) U/L ALT (21-72) U/L Alkaline Phosphatase (38-126) U/L Total Creatine Kinase (55-170) U/L CK-MB (CK-2) (0.0-2.4) ng/mL CK-MB (CK-2) Rel Index Troponin I (0.000-0.034) ng/mL Total Protein (6.3-8.2) g/dL Albumin (3.5-5.0) g/dL Urine Color Light Red Urine Appearance Cloudy (Clear) Urine pH 8.5 H (5.0-8.0) Ur Specific [place] 1.009 (1.001-1.035) Urine Protein 2+ H (Negative) Urine Glucose (UA) Negative (Negative) Urine Ketones Negative (Negative) Urine Blood Large H (Negative) Urine Nitrite Negative (Negative) Urine Bilirubin Negative (Negative) Urine Urobilinogen <2.0 (<2.0) mg/dL Ur Leukocyte Esterase Trace H (Negative) Urine RBC 103 H (0-5) /hpf Urine WBC 73 H (0-5) /hpf Ur Squamous Epith Cells 1 (0-4) /hpf Urine Bacteria Few H (None) /hpf Urine Mucus Rare H (None) /hpf Stool Occult Blood (Negative) Blood Type Blood Type Recheck Antibody Screen Spec Expiration Date - EKG Data -: EKG Interpreted by Me (Atrial fibrillation rate 91 QRS 100 QT since QTC 366/ 450 that posterior fas) - Radiology Data Radiology results: report reviewed (Review the imaging shows no acute findings.) , image reviewed Critical Care Time Critical Care Time: Yes Critical Care Time: 36 minutes of critical care time which includes initial presentation with history physical labs x-rays several reevaluation of the patient. Discussed with the patient regarding the findings discussion with multiple physicians regarding findings admission orders and documentation of the above Disposition Clinical Impression: GI bleed, Anemia, Acute renal failure (ARF) Disposition: ADMITTED IP TO THIS [facility] Condition: Serious Referrals: Baudilio De Leon MD [Primary Care Provider] - 1-2 days
[2018-06-16 13:56] LABS: Calcium 8.8 mg/dL (8.4-10.2); Magnesium 1.7 mg/dL (1.6-2.3); Potassium 4.8 mmol/L (3.5-5.1); Total Bilirubin 0.3 mg/dL (0.2-1.3); Total Protein 5.9 g/dL (6.3-8.2)
[2018-06-16 13:57] LABS: Anisocytosis Slight; Basophils % (A) 0 %; Eosinophils # (A) 0.1 k/uL (0-0.7); Eosinophils % (A) 1 %; Hypochromasia Marked; Lymphocytes # (A) 0.8 k/uL (1.0-4.8); Lymphocytes % (A) 14 %; MCH 29.5 pg (25.0-35.0); MCHC 31.8 g/dL (31.0-37.0); MCV 92.7 fL (80.0-100.0); Mean Platelet Volume 10.2; Monocytes # (A) 0.8 k/uL (0-1.0); Monocytes % (A) 13 %; Neutrophils % (A) 69 %; Platelet Count 129 k/uL (150-450); Poikilocytosis Slight; RBC 1.75 m/uL (4.30-5.90); RDW 19.4 % (11.5-15.5); WBC 5.8 k/uL (3.8-10.6)
[2018-06-16 13:59] LABS: HGB 5.2 gm/dL (13.0-17.5)
[2018-06-16 14:00] LABS: HCT 16.2 % (39.0-53.0)
[2018-06-16 14:03] LABS: Creatine Kinase 23 U/L (55-170)
[2018-06-16 14:04] LABS: Partial Thromboplastin Time 49.4 sec (22.0-30.0); Prothrombin Time 73.7 sec (9.0-12.0)
--- NOTE | 2018-06-16 14:06 | XR ---
EXAMINATION TYPE: XR chest 1V portable DATE OF EXAM: 06/16/2018 COMPARISON: Chest x-ray May 17, 2018 HISTORY: Chest pain per order. TECHNIQUE: Single frontal view of the chest is obtained. FINDINGS: There is persistent bibasilar opacity felt to reflect small bilateral pleural effusions an d associated left basilar atelectasis and/or infiltrate. The cardiac silhouette size remains enlarged . Advanced degenerative change right glenohumeral joint remains present IMPRESSION: Cardiomegaly with small bilateral pleural effusions and associated left basilar atelecta sis and/or infiltrate all redemonstrated
--- NOTE | 2018-06-16 14:09 | XR ---
EXAMINATION TYPE: XR KUB portable DATE OF EXAM: 06/16/2018 1:48 PM CLINICAL HISTORY: Weakness and hematuria. TECHNIQUE: Two supine KUB images of the abdomen are obtained. COMPARISON: CT abdomen and pelvis from one week ago.. FINDINGS: Scattered gas is seen in non-distended small bowel loops. Mild wall thickening is felt pres ent in left sided small bowel loops. Gas and fecal material is seen in non-distended colon and rectum . Numerous surgical clips throughout the pelvis are redemonstrated extending into the lower abdomen. There is mild to moderate multilevel spurring in the lumbar spine. No pneumoperitoneum is evident. Le ft basilar opacity silhouetting left hemidiaphragm is noted. IMPRESSION: Overall nonobstructive bowel gas pattern. There are prominent but subcentimeter lymph nodes throughou t the mesentery on recent CT, lymphoma is in differential. Correlate clinically.
[2018-06-16 14:14] LABS: Creatine Kinase MB 1.5 ng/mL (0.0-2.4); Troponin I <0.012 ng/mL (0.000-0.034)
[2018-06-16] MEDS ORDERED: PHYTONADIONE ORAL 5 MG/5 ML ORAL.SYRG PO STA (14:26)
[2018-06-16 14:52] LABS: Ovalocytes Present; Polychromasia Present
[2018-06-16 15:52] LABS: Appearance,Urine Cloudy (Clear); Bacteria,Urine Few /hpf; Bilirubin,Urine Negative (Negative); Blood,Urine Large (Negative); Color,Urine Light Red; Glucose,Urine (UA) Negative (Negative); Ketones,Urine Negative (Negative); Leukocyte Esterase,Urine Trace (Negative); Mucus,Urine Rare /hpf; Nitrite,Urine Negative (Negative); PH, Urine 8.5 (5.0-8.0); Protein,Urine 2+ (Negative); RBC,Urine 103 /hpf (0-5); Specific Gravity,Urine 1.009 (1.001-1.035); Squamous Epithelial Cell,Urine 1 /hpf (0-4); Urobilinogen,Urine <2.0 mg/dL (<2.0); WBC,Urine 73 /hpf (0-5)
[2018-06-16] MEDS ORDERED: NALOXONE 0.4 MG/ML 1 ML VIAL IV PRN (17:05)
[2018-06-16] MEDS ORDERED: IPRATROPIUM-ALBUTEROL 3 ML NEB INHALATION PRN (17:08)
--- NOTE | 2018-06-16 17:09 | ED ---
Medical Decision Making - Lab Data Result diagrams: 06/16/18 13:30 06/16/18 13:30 Lab Results 06/16/18 06/16/18 06/16/18 Range/Units 13:27 13:30 13:30 WBC 5.8 (3.8-10.6) k/uL RBC 1.75 L (4.30-5.90) m/uL Hgb 5.2 L* (13.0-17.5) gm/dL Hct 16.2 L* (39.0-53.0) % MCV 92.7 (80.0-100.0) fL MCH 29.5 (25.0-35.0) pg MCHC 31.8 (31.0-37.0) g/dL RDW 19.4 H (11.5-15.5) % Plt Count 129 L (150-450) k/uL Neutrophils % 69 % Lymphocytes % 14 % Monocytes % 13 % Eosinophils % 1 % Basophils % 0 % Neutrophils # 4.0 (1.3-7.7) k/uL Lymphocytes # 0.8 L (1.0-4.8) k/uL Monocytes # 0.8 (0-1.0) k/uL Eosinophils # 0.1 (0-0.7) k/uL Basophils # 0.0 (0-0.2) k/uL Manual Slide Review Performed Polychromasia Present Hypochromasia Marked Poikilocytosis Slight Anisocytosis Slight Ovalocytes Present PT (9.0-12.0) sec INR (<1.2) APTT (22.0-30.0) sec Sodium (137-145) mmol/L Potassium (3.5-5.1) mmol/L Chloride (98-107) mmol/L Carbon Dioxide (22-30) mmol/L Anion Gap mmol/L BUN (9-20) mg/dL Creatinine (0.66-1.25) mg/dL Est GFR (CKD-EPI)AfAm (>60 ml/min/1.73 sqM) Est GFR (CKD-EPI)NonAf (>60 ml/min/1.73 sqM) Glucose (74-99) mg/dL Calcium (8.4-10.2) mg/dL Magnesium (1.6-2.3) mg/dL Total Bilirubin (0.2-1.3) mg/dL AST (17-59) U/L ALT (21-72) U/L Alkaline Phosphatase (38-126) U/L Total Creatine Kinase 23 L (55-170) U/L CK-MB (CK-2) 1.5 (0.0-2.4) ng/mL CK-MB (CK-2) Rel Index 6.5 Troponin I <0.012 (0.000-0.034) ng/mL Total Protein (6.3-8.2) g/dL Albumin (3.5-5.0) g/dL Urine Color Urine Appearance (Clear) Urine pH (5.0-8.0) Ur Specific [place] (1.001-1.035) Urine Protein (Negative) Urine Glucose (UA) (Negative) Urine Ketones (Negative) Urine Blood (Negative) Urine Nitrite (Negative) Urine Bilirubin (Negative) Urine Urobilinogen (<2.0) mg/dL Ur Leukocyte Esterase (Negative) Urine RBC (0-5) /hpf Urine WBC (0-5) /hpf Ur Squamous Epith Cells (0-4) /hpf Urine Bacteria (None) /hpf Urine Mucus (None) /hpf Stool Occult Blood Positive (Negative) Blood Type Blood Type Recheck Antibody Screen Spec Expiration Date 06/16/18 06/16/18 06/16/18 Range/Units 13:30 13:30 13:30 WBC (3.8-10.6) k/uL RBC (4.30-5.90) m/uL Hgb (13.0-17.5) gm/dL Hct (39.0-53.0) % MCV (80.0-100.0) fL MCH (25.0-35.0) pg MCHC (31.0-37.0) g/dL RDW (11.5-15.5) % Plt Count (150-450) k/uL Neutrophils % % Lymphocytes % % Monocytes % % Eosinophils % % Basophils % % Neutrophils # (1.3-7.7) k/uL Lymphocytes # (1.0-4.8) k/uL Monocytes # (0-1.0) k/uL Eosinophils # (0-0.7) k/uL Basophils # (0-0.2) k/uL Manual Slide Review Polychromasia Hypochromasia Poikilocytosis Anisocytosis Ovalocytes PT 73.7 H (9.0-12.0) sec INR 8.0 H* (<1.2) APTT 49.4 H (22.0-30.0) sec Sodium 140 (137-145) mmol/L Potassium 4.8 (3.5-5.1) mmol/L Chloride 108 H (98-107) mmol/L Carbon Dioxide 20 L (22-30) mmol/L Anion Gap 12 mmol/L BUN 74 H (9-20) mg/dL Creatinine 4.05 H (0.66-1.25) mg/dL Est GFR (CKD-EPI)AfAm 16 (>60 ml/min/1.73 sqM) Est GFR (CKD-EPI)NonAf 14 (>60 ml/min/1.73 sqM) Glucose 91 (74-99) mg/dL Calcium 8.8 (8.4-10.2) mg/dL Magnesium 1.7 (1.6-2.3) mg/dL Total Bilirubin 0.3 (0.2-1.3) mg/dL AST 20 (17-59) U/L ALT 21 (21-72) U/L Alkaline Phosphatase 55 (38-126) U/L Total Creatine Kinase (55-170) U/L CK-MB (CK-2) (0.0-2.4) ng/mL CK-MB (CK-2) Rel Index Troponin I (0.000-0.034) ng/mL Total Protein 5.9 L (6.3-8.2) g/dL Albumin 3.0 L (3.5-5.0) g/dL Urine Color Urine Appearance (Clear) Urine pH (5.0-8.0) Ur Specific [place] (1.001-1.035) Urine Protein (Negative) Urine Glucose (UA) (Negative) Urine Ketones (Negative) Urine Blood (Negative) Urine Nitrite (Negative) Urine Bilirubin (Negative) Urine Urobilinogen (<2.0) mg/dL Ur Leukocyte Esterase (Negative) Urine RBC (0-5) /hpf Urine WBC (0-5) /hpf Ur Squamous Epith Cells (0-4) /hpf Urine Bacteria (None) /hpf Urine Mucus (None) /hpf Stool Occult Blood (Negative) Blood Type O Positive Blood Type Recheck No Antibody Screen NEGATIVE Spec Expiration Date 06/19/2018 - 232906/16/18 Range/Units 15:32 WBC (3.8-10.6) k/uL RBC (4.30-5.90) m/uL Hgb (13.0-17.5) gm/dL Hct (39.0-53.0) % MCV (80.0-100.0) fL MCH (25.0-35.0) pg MCHC (31.0-37.0) g/dL RDW (11.5-15.5) % Plt Count (150-450) k/uL Neutrophils % % Lymphocytes % % Monocytes % % Eosinophils % % Basophils % % Neutrophils # (1.3-7.7) k/uL Lymphocytes # (1.0-4.8) k/uL Monocytes # (0-1.0) k/uL Eosinophils # (0-0.7) k/uL Basophils # (0-0.2) k/uL Manual Slide Review Polychromasia Hypochromasia Poikilocytosis Anisocytosis Ovalocytes PT (9.0-12.0) sec INR (<1.2) APTT (22.0-30.0) sec Sodium (137-145) mmol/L Potassium (3.5-5.1) mmol/L Chloride (98-107) mmol/L Carbon Dioxide (22-30) mmol/L Anion Gap mmol/L BUN (9-20) mg/dL Creatinine (0.66-1.25) mg/dL Est GFR (CKD-EPI)AfAm (>60 ml/min/1.73 sqM) Est GFR (CKD-EPI)NonAf (>60 ml/min/1.73 sqM) Glucose (74-99) mg/dL Calcium (8.4-10.2) mg/dL Magnesium (1.6-2.3) mg/dL Total Bilirubin (0.2-1.3) mg/dL AST (17-59) U/L ALT (21-72) U/L Alkaline Phosphatase (38-126) U/L Total Creatine Kinase (55-170) U/L CK-MB (CK-2) (0.0-2.4) ng/mL CK-MB (CK-2) Rel Index Troponin I (0.000-0.034) ng/mL Total Protein (6.3-8.2) g/dL Albumin (3.5-5.0) g/dL Urine Color Light Red Urine Appearance Cloudy (Clear) Urine pH 8.5 H (5.0-8.0) Ur Specific [place] 1.009 (1.001-1.035) Urine Protein 2+ H (Negative) Urine Glucose (UA) Negative (Negative) Urine Ketones Negative (Negative) Urine Blood Large H (Negative) Urine Nitrite Negative (Negative) Urine Bilirubin Negative (Negative) Urine Urobilinogen <2.0 (<2.0) mg/dL Ur Leukocyte Esterase Trace H (Negative) Urine RBC 103 H (0-5) /hpf Urine WBC 73 H (0-5) /hpf Ur Squamous Epith Cells 1 (0-4) /hpf Urine Bacteria Few H (None) /hpf Urine Mucus Rare H (None) /hpf Stool Occult Blood (Negative) Blood Type Blood Type Recheck Antibody Screen Spec Expiration Date Disposition Clinical Impression: GI bleed, Anemia, Acute renal failure (ARF), Coumadin toxicity Disposition: ADMITTED IP TO THIS [facility] Condition: Serious Referrals: Baudilio De Leon MD [Primary Care Provider] - 1-2 days
[2018-06-16 22:18] LABS: Glucose,Whole Blood 114 mg/dL (75-99)
[2018-06-16] MEDS: METOPROLOL TARTRATE 25 MG TAB PO SCH (23:07)
[2018-06-16] MEDS: FERROUS SULFATE 325 MG TAB PO SCH (23:08)
[2018-06-16] MEDS: SODIUM CHLORIDE 0.9% 1,000 ML IV SCH (23:08)
[2018-06-16] MEDS ORDERED: FUROSEMIDE 10 MG/ML 4 ML VIAL IV STA (23:10)
[2018-06-17 02:00] LABS: Anisocytosis Slight; Basophils % (A) 0 %; Eosinophils # (A) 0.1 k/uL (0-0.7); Eosinophils % (A) 2 %; HCT 20.4 % (39.0-53.0); Hypochromasia Marked; Lymphocytes # (A) 0.9 k/uL (1.0-4.8); Lymphocytes % (A) 16 %; MCH 28.4 pg (25.0-35.0); MCHC 31.2 g/dL (31.0-37.0); MCV 91.1 fL (80.0-100.0); Mean Platelet Volume 11.2; Monocytes # (A) 0.7 k/uL (0-1.0); Monocytes % (A) 13 %; Neutrophils # (A) 3.4 k/uL (1.3-7.7); Neutrophils % (A) 66 %; Platelet Count 111 k/uL (150-450); Poikilocytosis Slight; RBC 2.24 m/uL (4.30-5.90); RDW 18.4 % (11.5-15.5); WBC 5.2 k/uL (3.8-10.6)
[2018-06-17 02:02] LABS: HGB 6.4 gm/dL (13.0-17.5)
[2018-06-17 07:13] LABS: Anisocytosis Slight; Basophils % (A) 0 %; Eosinophils # (A) 0.1 k/uL (0-0.7); Eosinophils % (A) 1 %; HCT 21.8 % (39.0-53.0); Hypochromasia Marked; Lymphocytes # (A) 0.8 k/uL (1.0-4.8); Lymphocytes % (A) 16 %; MCH 29.1 pg (25.0-35.0); MCHC 31.8 g/dL (31.0-37.0); MCV 91.6 fL (80.0-100.0); Monocytes # (A) 0.8 k/uL (0-1.0); Monocytes % (A) 16 %; Neutrophils # (A) 3.2 k/uL (1.3-7.7); Neutrophils % (A) 64 %; Platelet Count 104 k/uL (150-450); Poikilocytosis Slight; RBC 2.38 m/uL (4.30-5.90); RDW 17.9 % (11.5-15.5)
[2018-06-17 07:20] LABS: HGB 6.9 gm/dL (13.0-17.5)
[2018-06-17 07:52] LABS: Calcium 8.9 mg/dL (8.4-10.2); Magnesium 1.6 mg/dL (1.6-2.3); Phosphorus 5.4 mg/dL (2.5-4.5); Potassium 4.7 mmol/L (3.5-5.1)
--- NOTE | 2018-06-17 08:17 | XR ---
EXAMINATION TYPE: XR chest 1V DATE OF EXAM: 06/17/2018 HISTORY: Shortness of breath. COMPARISON: 06/16/2018 TECHNIQUE: Single view of the chest is submitted. FINDINGS: Demonstrated are scattered senescent parenchymal change. Patchy basilar infiltrates noted which may reflect underlying pneumonia. Small effusions are also pre sent. Correlate clinically and progress studies are recommended. The heart is stable. Hilar and mediastinal structures are within normal limits. Degenerative changes are seen of the dorsal spine. IMPRESSION: 1. Patchy basilar infiltrates noted which may reflect underlying pneumonia. Small effusions are also present. Correlate clinically and progress studies are recommended.
[2018-06-17] MEDS: ISOSORBIDE MONONITRATE ER 30 MG TAB.ER.24H PO SCH (08:59)
[2018-06-17] MEDS: PANTOPRAZOLE 40 MG TABLET PO SCH (08:59)
[2018-06-17] MEDS: SPIRONOLACTONE 25 MG TAB PO SCH (08:59)
[2018-06-17] MEDS: METOPROLOL TARTRATE 25 MG TAB PO SCH ×2 (08:59→20:53)
[2018-06-17] MEDS: FERROUS SULFATE 325 MG TAB PO SCH ×3 (08:59→20:53)
[2018-06-17] MEDS: IPRATROPIUM-ALBUTEROL 3 ML NEB INHALATION PRN ×4 (09:17→23:41)
[2018-06-17 09:45] LABS: Prothrombin Time 51.7 sec (9.0-12.0)
--- NOTE | 2018-06-17 10:03 | HP ---
HISTORY AND PHYSICAL CHIEF COMPLAINT: Anemia and hyperprothrombinemia with GI bleeding. HISTORY OF PRESENT ILLNESS: This is another admission for this 77-year-old white male. He was in the hospital several weeks ago for an extended period of time for hypovolemic shock and renal failure. He gradually recovered and was able to be sent home. Since being home, he has struggled to regain strength. He has been in the office twice and several days ago when he was in, he looked pale and blood work was repeated, which revealed an INR over 5 and hemoglobin of 5.1. The patient was contacted and told to come back into the hospital and was evaluated in the emergency room, where he had heme-positive stool. He has been awake, oriented and alert and he has had no chest pain, abdominal pain, vomiting, melena, hematemesis, etc. REVIEW OF SYSTEMS: Unremarkable except for his weakness. PAST MEDICAL HISTORY, FAMILY HISTORY, PERSONAL AND SOCIAL HISTORIES: Demonstrates that he is not allergic to any medication. He has been takin. Aldactone 25 mg once a day. 2. Coumadin 5 mg once a day. 3. Isosorbide dinitrate 30 mg once a day. 4. Iron. 5. Prilosec 20 twice a day. 6. Prednisone 20 mg once a day. 7. Levaquin 500 mg once a day. 8. Updrafts with Atrovent and albuterol q.i.d. p.r.n. 9. Vitamin B6. 10.Metoprolol 50 mg 1-1/2 tablets 3 times a day. 11.Lasix 40 once a day and. 12.Lisinopril 2.5. The remainder of his history is unchanged and unremarkable. PHYSICAL EXAMINATION: Blood pressure is 98/64 with a pulse of 82, respirations of 34. He is afebrile. In general, appeared to be pale. He is awake and alert. Head, ears, eyes, nose, mouth, and throat were normal and his chest is clear. Cardiac demonstrated atrial fibrillation and the abdomen was soft and nontender. He had a ureterostomy. Extremities were normal. Neurologically is intact. IMPRESSION: 1. Recurrent or persistent upper gastrointestinal hemorrhage. 2. Blood loss anemia. 3. Hyperprothrombinemia (iatrogenic). 4. Renal failure. 5. Atrial fibrillation. 6. History of carcinoma of the bladder. PLAN: 1. Bed rest. 2. IV fluids. 3. Transfuse. 4. Stop anticoagulation after Coumadin first. PARISH / DIEGON: [id number] /
[2018-06-17 10:06] LABS: INR 5.7 (<1.2)
[2018-06-17] MEDS ORDERED: PHYTONADIONE ORAL 5 MG/5 ML ORAL.SYRG PO STA (10:08)
[2018-06-17] MEDS ORDERED: FUROSEMIDE 10 MG/ML 10 ML VIAL IV STA (10:09)
[2018-06-17] MEDS ORDERED: DESMOPRESSIN ACETATE 30 MCG in SODIUM CHLORIDE 0.9% 50 ML IVPB ONE (10:33)
--- NOTE | 2018-06-17 10:36 | P.NPCON ---
History of Present Illness - Reason for Consult acute renal failure - History of Present Illness Reason for consultation: Acute kidney injury History of present illness: Patient is a 77-year-old male seen in renal consultation for acute kidney injury. Patient's creatinine is 4.05 on admission and is stable at 4.05 today. Patient presented to the hospital with fatigue and weakness. He was also having dark stools. Hemoglobin was 5.21 admission and INR was 8.0. He has received 3 units of blood transfusion and hemoglobin is up to 6.9 this morning. No further black stools. INR is on the 5.7. He did receive a dose of vitamin K and is scheduled to receive another dose today. He also received a dose of IV Lasix after his last blood transfusion. He is nonoliguric. He has a Rocha catheter in place. Creatinine in April 2018 was as low as 1.2. He does admit to taking Aleve every other day for shoulder pain. Patient has history of bladder cancer and underwent [place] [facility] [place] Renal ultrasound from April 2018 revealed moderate left-sided hydronephrosis and mild right-sided hydronephrosis. He was evaluated by radiology and no interventions were done at that time. Vital signs are stable. General: The patient appeared well nourished and normally developed. HEENT: Head exam is unremarkable. Neck is without jugular venous distension. LUNGS: Lungs are clear to auscultation and percussion. Breath sounds decreased. HEART: Rate and Rhythm are regular. First and second heart sounds normal. No murmurs, rubs or gallops. ABDOMEN: Abdominal exam reveals normal bowel sounds. Non-tender and non- distended. No evidence of peritonitis. EXTREMITITES: No clubbing, cyanosis, or edema. Past Medical History Past Medical History: Atrial Fibrillation, Cancer, Myocardial Infarction ([place]) Additional Past Medical History / Comment(s): bladder ca, prostate ca had sx( urostomy) and 1 round of chemo in , afib, [place], hemorhoids, pt stated he was told by a dr that he had an enlarged heart, [place] Last Myocardial Infarction Date:: 2002 History of Any Multi-Drug Resistant Organisms: None Reported Past Surgical History: Adenoidectomy, Tonsillectomy Additional Past Surgical History / Comment(s): bladder and prostate removal-has urostomy Past Anesthesia/Blood Transfusion Reactions: No Reported Reaction Past Psychological History: No Psychological Hx Reported Additional Psychological History / Comment(s): pt lives alone in own home. used to work at [employer], no service. Smoking Status: Current every day smoker Past Alcohol Use History: Daily Additional Past Alcohol Use History / Comment(s): started smoking at age 15 or 16, smoked 1 ppd but quit 7 days ago. drinks 3 beer per day,denies drug use per daughter. Past Drug Use History: None Reported - Past Family History Father Family Medical History: No Reported History Mother Family Medical History: No Reported History Medications and Allergies Home Medications Medication Instructions Recorded Confirmed Type Isosorbide Mononitrate [Isosorbide 30 mg PO DAILY 01/02/16 06/16/18 History Mononitrate ER] Furosemide [Lasix] 40 mg PO DAILY #30 tab 01/08/16 06/16/18 Rx Lisinopril [Zestril] 2.5 mg PO DAILY #30 tab 01/08/16 06/16/18 Rx Metoprolol Tartrate [Lopressor] 75 mg PO BID 05/04/18 06/16/18 History Ipratropium-Albuterol Nebulize 3 ml INHALATION RT-Q12H PRN #60 05/21/18 Rx [Duoneb 0.5 mg-3 mg/3 ml Soln] ampul.neb Ferrous Sulfate [Feosol] 325 mg PO TID 06/16/18 06/16/18 History Omeprazole 20 mg PO BID 06/16/18 06/16/18 History Spironolactone [Aldactone] 25 mg PO DAILY 06/16/18 06/16/18 History Warfarin [Coumadin] 5 mg PO DAILY 06/16/18 06/16/18 History Allergies Allergy/AdvReac Type Severity Reaction Status Date / Time No Known Allergies Allergy Verified 06/16/18 12:32 Physical Exam Vitals: Vital Signs Temp Pulse Pulse Resp BP BP Pulse Ox 06/17/18 09:26 101 H 16 06/17/18 09:17 100 16 06/17/18 07:00 82 13 102/59 96 06/17/18 06:30 80 20 102/59 97 06/17/18 06:00 81 12 117/60 97 06/17/18 05:53 97.8 F 82 19 117/60 09/20/18 05:00 76 18 107/54 98 /20/18 04:30 80 24 107/54 98 /20/18 04:00 98.1 F 82 17 117/53 99 09/20/18 03:30 81 15 117/53 99 /20/18 03:23 97.6 F 88 18 117/53 98 /20/18 03:00 78 27 H 115/61 100 /20/18 02:53 98 F 72 14 115/61 99 /20/18 02:43 97.6 F 81 20 107/65 99 /20/18 02:30 75 14 107/55 99 /20/18 02:00 76 28 H 112/58 99 /20/18 01:00 89 15 109/69 98 /20/18 00:21 98.1 F 85 20 109/69 98 /20/18 00:00 98.0 F 85 21 131/66 99 /19/18 23:42 105 H 16 06/16/18 23:30 92 19 131/66 100 /19/18 23:29 102 H 18 06/16/18 23:20 102 H 23 113/67 94 L /19/18 23:10 109 H 24 113/67 93 L /19/18 23:00 96 26 H 113/67 95 /19/18 22:50 109 H 27 H 113/67 93 L /19/18 22:40 98 18 113/67 95 /19/18 22:30 117 H 30 H 113/67 91 L /19/18 22:24 97.0 F L 107 H 22 131/66 94 L 09/19/18 22:20 97.6 F 100 22 118/75 93 L 09/19/18 21:59 97.0 F L 84 20 99/58 /19/18 21:44 97.6 F 106 H 24 113/64 94 L 09/19/18 21:39 97.2 F L 96 20 115/63 /19/18 21:29 97 F L 103 H 20 101/64 95 09/19/18 21:28 97.1 F L 92 20 109/61 95 /19/18 21:26 97.6 F 108 H 23 113/67 93 L 09/19/18 20:29 97.1 F L 113 H 20 103/55 06/16/18 19:36 97.1 F L 69 20 99/60 06/16/18 19:19 97.0 F L 104 H 18 108/55 06/16/18 19:06 97.8 F 91 18 111/62 100 06/16/18 14:50 95 18 122/91 95 06/16/18 13:53 18 06/16/18 12:30 97.6 F 88 20 108/60 95 Intake and Output 06/16/18 06/17/18 06/17/18 22:59 06:59 14:59 Intake Total 710 1980 160 Output Total 1075 250 Balance 710 905 -90 Intake: IV 560 160 Sodium Chloride 0.9% 1, 560 160 000 ml @ 80 mls/hr IV . [id number] [facility] Rx#:[id number] Amount of Fluid Infused ( 400 ml) Oral 400 Blood Product 310 920 Rc As-1 Unit 310 [id number] Rc As-1 Unit 310 [id number] Rc As-1 Unit 0 310 [id number] Other 100 Rc As-1 Unit 100 [id number] Output: Urine 1075 250 Other: Weight 97.6 kg 103.3 kg Results - Lab Results Most recent lab results Calcium 8.9 mg/dL (8.4-10.2) 06/17/18 06:38 Phosphorus 5.4 mg/dL (2.5-4.5) H 06/17/18 06:38 Magnesium 1.6 mg/dL (1.6-2.3) 06/17/18 06:38 06/17/18 06:38 06/17/18 06:38 Assessment and Plan Plan: Assessment: 1. Nonoliguric acute kidney injury secondary to ATN secondary to acute anemia. Creatinine 4.05 today. Creatinine was 1.2 in April 2018. Rule out obstructive uropathy. 2. Metabolic acidosis secondary to acute kidney injury. 3. Hyperphosphatemia secondary to acute kidney injury. 4. Acute blood loss anemia secondary to Coumadin toxicity status post 3 units blood transfusion. GI evaluation pending. 5. Systolic CHF with ejection fraction of 25-30% with moderate mitral and tricuspid regurgitation. 6. Hypomagnesemia from GI losses. Plan: IV fluids decreased to 50 mL an hour. He is scheduled to receive 1 dose of IV Lasix 60 mg today. Continue to monitor renal function and urine output. I will give him 1 dose of IV DDAVP. Add Aranesp. Avoid nephrotoxins. Check renal ultrasound. Replace magnesium. 2 g IV today. Thank you for the consultation. I will continue to follow the patient with you during his hospital stay.
--- NOTE | 2018-06-17 11:29 | P.CONS ---
History of Present Illness - Reason for Consult Consult date: 06/17/18 GI bleed anemia Requesting physician: Baudilio De Leon - Chief Complaint urostomy bleeding - History of Present Illness 77-year-old gentleman with a history of bladder prostate carcinoma with diverting ileostomy/urostomy recently hospitalized a month ago with acute GI bleed reports of melena possible coffee-ground emesis. He has a history of atrial fibrillation maintained on warfarin. He underwent EGD evaluation [address] Su for evaluation of a hemoglobin of 4.1 and black colored bowel movements with findings of duodenitis with duodenal bulb ulcers with no active bleeding at time of exam. Ulcerations in the esophagus likely NG tube trauma but no active bleeding. During that hospitalization there was no evidence of hematuria. He has no history of colonoscopy and refuses colonoscopy. Hemoglobin 05/21/2018 was a 8.7. He presents yesterday with a hemoglobin of 5.2 and blood tinged urine in his urostomy. MCV 92. Platelet 129. White count 5.8. BUN 74. Creatinine 4.0. Denies rectal bleeding or hematemesis. Denies abdominal pain. INR 8 received vitamin K presently 5.7. He has received a total of 9 units of blood since April. Current hemoglobin is 6.9. CT abdomen and pelvis with contrast 06/09/2018 reported evidence of removal of urinary bladder. Divergent ileostomy noted. Bilateral hydronephrosis noted considered mild to moderate in degree. No evidence of calculus or mass. Review of Systems Constitutional: Denies fever, chills, sweats, weight gain, or loss. HEENT: Negative for migraines, blurred vision or loss, earaches, drainage, tinnitus, oral mucosal lesions, dysphagia, or odynophagia. Cardiac: Negative for chest pain, arrhythmias, or palpitation. Respiratory: Negative for shortness of breath, hemoptysis, cough, or sputum production. Gastrointestinal: See HPI for pertinent findings. Genitourinary: Negative for hematuria, urgency, frequency, polyuria, dysuria, or penile discharge. Musculoskeletal: Negative for muscle aches, swelling, arthritis, and arthralgias. Neurologic: Negative for stroke or TIA. Endocrine: Negative for thyroid problems. Skin: Negative for rash or itching. Psychiatric: Negative history for depression and anxiety Past Medical History Past Medical History: Atrial Fibrillation, Cancer, Myocardial Infarction ([place]) Additional Past Medical History / Comment(s): bladder ca, prostate ca had sx( urostomy) and 1 round of chemo in , afib, [place], hemorhoids, pt stated he was told by a dr that he had an enlarged heart, [place] Last Myocardial Infarction Date:: 2002 History of Any Multi-Drug Resistant Organisms: None Reported Past Surgical History: Adenoidectomy, Tonsillectomy Additional Past Surgical History / Comment(s): bladder and prostate removal-has urostomy Past Anesthesia/Blood Transfusion Reactions: No Reported Reaction Past Psychological History: No Psychological Hx Reported Additional Psychological History / Comment(s): pt lives alone in own home. used to work at [employer], no service. Smoking Status: Current every day smoker Past Alcohol Use History: Daily Additional Past Alcohol Use History / Comment(s): started smoking at age 15 or 16, smoked 1 ppd but quit 7 days ago. drinks 3 beer per day,denies drug use per daughter. Past Drug Use History: None Reported - Past Family History Father Family Medical History: No Reported History Mother Family Medical History: No Reported History Medications and Allergies Home Medications Medication Instructions Recorded Confirmed Type Isosorbide Mononitrate [Isosorbide 30 mg PO DAILY 01/02/16 06/16/18 History Mononitrate ER] Furosemide [Lasix] 40 mg PO DAILY #30 tab 01/08/16 06/16/18 Rx Lisinopril [Zestril] 2.5 mg PO DAILY #30 tab 01/08/16 06/16/18 Rx Metoprolol Tartrate [Lopressor] 75 mg PO BID 05/04/18 06/16/18 History Ipratropium-Albuterol Nebulize 3 ml INHALATION RT-Q12H PRN #60 05/21/18 Rx [Duoneb 0.5 mg-3 mg/3 ml Soln] ampul.neb Ferrous Sulfate [Feosol] 325 mg PO TID 06/16/18 06/16/18 History Omeprazole 20 mg PO BID 06/16/18 06/16/18 History Spironolactone [Aldactone] 25 mg PO DAILY 06/16/18 06/16/18 History Warfarin [Coumadin] 5 mg PO DAILY 06/16/18 06/16/18 History Allergies Allergy/AdvReac Type Severity Reaction Status Date / Time No Known Allergies Allergy Verified 06/16/18 12:32 Physical Exam Vitals: Vital Signs Temp Pulse Pulse Resp BP BP Pulse Ox 06/17/18 09:26 101 H 16 06/17/18 09:17 100 16 06/17/18 07:00 82 13 102/59 96 06/17/18 06:30 80 20 102/59 97 06/17/18 06:00 81 12 117/60 97 06/17/18 05:53 97.8 F 82 19 117/60 06/17/18 05:00 76 18 107/54 98 06/17/18 04:30 80 24 107/54 98 06/17/18 04:00 98.1 F 82 17 117/53 99 06/17/18 03:30 81 15 117/53 99 06/17/18 03:23 97.6 F 88 18 117/53 98 06/17/18 03:00 78 27 H 115/61 100 06/17/18 02:53 98 F 72 14 115/61 99 06/17/18 02:43 97.6 F 81 20 107/65 99 06/17/18 02:30 75 14 107/55 99 06/17/18 02:00 76 28 H 112/58 99 06/17/18 01:00 89 15 109/69 98 06/17/18 00:21 98.1 F 85 20 109/69 98 06/17/18 00:00 98.0 F 85 21 131/66 99 06/16/18 23:42 105 H 16 06/16/18 23:30 92 19 131/66 100 06/16/18 23:29 102 H 18 06/16/18 23:20 102 H 23 113/67 94 L 06/16/18 23:10 109 H 24 113/67 93 L 06/16/18 23:00 96 26 H 113/67 95 06/16/18 22:50 109 H 27 H 113/67 93 L 06/16/18 22:40 98 18 113/67 95 06/16/18 22:30 117 H 30 H 113/67 91 L 06/16/18 22:24 97.0 F L 107 H 22 131/66 94 L 06/16/18 22:20 97.6 F 100 22 118/75 93 L 06/16/18 21:59 97.0 F L 84 20 99/58 06/16/18 21:44 97.6 F 106 H 24 113/64 94 L 06/16/18 21:39 97.2 F L 96 20 115/63 06/16/18 21:29 97 F L 103 H 20 101/64 95 06/16/18 21:28 97.1 F L 92 20 109/61 95 06/16/18 21:26 97.6 F 108 H 23 113/67 93 L 06/16/18 20:29 97.1 F L 113 H 20 103/55 06/16/18 19:36 97.1 F L 69 20 99/60 06/16/18 19:19 97.0 F L 104 H 18 108/55 06/16/18 19:06 97.8 F 91 18 111/62 100 06/16/18 14:50 95 18 122/91 95 06/16/18 13:53 18 06/16/18 12:30 97.6 F 88 20 108/60 95 Intake and Output 06/16/18 06/17/18 06/17/18 22:59 06:59 14:59 Intake Total 710 1980 340 Output Total 1075 750 Balance 710 905 -410 Intake: IV 560 340 Sodium Chloride 0.9% 1, 560 340 000 ml @ 80 mls/hr IV . [id number] [facility] Rx#:[id number] Amount of Fluid Infused ( 400 ml) Oral 400 Blood Product 310 920 Rc As-1 Unit 310 [id number] Rc As-1 Unit 310 [id number] Rc As-1 Unit 0 310 [id number] Other 100 Rc As-1 Unit 100 [id number] Output: Urine 1075 750 Other: Weight 97.6 kg 103.3 kg General appearance: The patient is alert, oriented, in no acute distress. HET: Head is normocephalic and atraumatic. Pupils are equal and reactive. Oropharynx is clear without lesions. Neck: Supple without lymphadenopathy. Trachea midline. Heart: S1 S2. Regular rate and rhythm. Lungs: No crackles or wheezes are heard. Abdomen: Soft, nontender, nondistended with bowel sounds. Diverting ileostomy urostomy with red tinged urine. No peritoneal signs. No palpable organomegaly or masses. Rectal: No blood and no palpable masses. Extremities: Normal skin color and turgor. No cyanosis, rash, ulceration, clubbing, or edema. Radial and pedal pulses are 2/4 bilaterally. Neurological: No focal deficits. Strength and sensation are grossly intact. Results CBC & Chem 7: 06/17/18 06:38 06/17/18 06:38 Labs: Abnormal Lab Results - Last 24 Hours (Table) 06/16/18 06/16/18 06/16/18 Range/Units 13:30 13:30 13:30 RBC 1.75 L (4.30-5.90) m/uL Hgb 5.2 L* (13.0-17.5) gm/dL Hct 16.2 L* (39.0-53.0) % RDW 19.4 H (11.5-15.5) % Plt Count 129 L (150-450) k/uL Lymphocytes # 0.8 L (1.0-4.8) k/uL PT (9.0-12.0) sec INR (<1.2) APTT (22.0-30.0) sec Chloride 108 H (98-107) mmol/L Carbon Dioxide 20 L (22-30) mmol/L BUN 74 H (9-20) mg/dL Creatinine 4.05 H (0.66-1.25) mg/dL POC Glucose (mg/dL) (75-99) mg/dL Phosphorus (2.5-4.5) mg/dL Total Creatine Kinase 23 L (55-170) U/L Total Protein 5.9 L (6.3-8.2) g/dL Albumin 3.0 L (3.5-5.0) g/dL Urine pH (5.0-8.0) Urine Protein (Negative) Urine Blood (Negative) Ur Leukocyte Esterase (Negative) Urine RBC (0-5) /hpf Urine WBC (0-5) /hpf Urine Bacteria (None) /hpf Urine Mucus (None) /hpf Crossmatch 06/16/18 06/16/18 06/16/18 Range/Units 13:30 13:30 15:32 RBC (4.30-5.90) m/uL Hgb (13.0-17.5) gm/dL Hct (39.0-53.0) % RDW (11.5-15.5) % Plt Count (150-450) k/uL Lymphocytes # (1.0-4.8) k/uL PT 73.7 H (9.0-12.0) sec INR 8.0 H* (<1.2) APTT 49.4 H (22.0-30.0) sec Chloride (98-107) mmol/L Carbon Dioxide (22-30) mmol/L BUN (9-20) mg/dL Creatinine (0.66-1.25) mg/dL POC Glucose (mg/dL) (75-99) mg/dL Phosphorus (2.5-4.5) mg/dL Total Creatine Kinase (55-170) U/L Total Protein (6.3-8.2) g/dL Albumin (3.5-5.0) g/dL Urine pH 8.5 H (5.0-8.0) Urine Protein 2+ H (Negative) Urine Blood Large H (Negative) Ur Leukocyte Esterase Trace H (Negative) Urine RBC 103 H (0-5) /hpf Urine WBC 73 H (0-5) /hpf Urine Bacteria Few H (None) /hpf Urine Mucus Rare H (None) /hpf Crossmatch See Detail 06/16/18 06/17/18 06/17/18 Range/Units 22:16 01:33 06:38 RBC 2.24 L 2.38 L (4.30-5.90) m/uL Hgb 6.4 L* 6.9 L* (13.0-17.5) gm/dL Hct 20.4 L 21.8 L (39.0-53.0) % RDW 18.4 H 17.9 H (11.5-15.5) % Plt Count 111 L 104 L (150-450) k/uL Lymphocytes # 0.9 L 0.8 L (1.0-4.8) k/uL PT (9.0-12.0) sec INR (<1.2) APTT (22.0-30.0) sec Chloride (98-107) mmol/L Carbon Dioxide (22-30) mmol/L BUN (9-20) mg/dL Creatinine (0.66-1.25) mg/dL POC Glucose (mg/dL) 114 H (75-99) mg/dL Phosphorus (2.5-4.5) mg/dL Total Creatine Kinase (55-170) U/L Total Protein (6.3-8.2) g/dL Albumin (3.5-5.0) g/dL Urine pH (5.0-8.0) Urine Protein (Negative) Urine Blood (Negative) Ur Leukocyte Esterase (Negative) Urine RBC (0-5) /hpf Urine WBC (0-5) /hpf Urine Bacteria (None) /hpf Urine Mucus (None) /hpf Crossmatch 06/17/18 06/17/18 Range/Units 06:38 09:05 RBC (4.30-5.90) m/uL Hgb (13.0-17.5) gm/dL Hct (39.0-53.0) % RDW (11.5-15.5) % Plt Count (150-450) k/uL Lymphocytes # (1.0-4.8) k/uL PT 51.7 H (9.0-12.0) sec INR 5.7 H* (<1.2) APTT (22.0-30.0) sec Chloride 110 H (98-107) mmol/L Carbon Dioxide 20 L (22-30) mmol/L BUN 74 H (9-20) mg/dL Creatinine 4.05 H (0.66-1.25) mg/dL POC Glucose (mg/dL) (75-99) mg/dL Phosphorus 5.4 H (2.5-4.5) mg/dL Total Creatine Kinase (55-170) U/L Total Protein (6.3-8.2) g/dL Albumin (3.5-5.0) g/dL Urine pH (5.0-8.0) Urine Protein (Negative) Urine Blood (Negative) Ur Leukocyte Esterase (Negative) Urine RBC (0-5) /hpf Urine WBC (0-5) /hpf Urine Bacteria (None) /hpf Urine Mucus (None) /hpf Crossmatch CT scan - abdomen: report reviewed (06/09/[address] Adams) Assessment and Plan (1) History of duodenal ulcer Narrative/Plan: 77-year-old gentleman admitted with recurrent acute blood loss anemia supratherapeutic INR secondary to warfarin for history of chronic atrial fibrillation. New-onset of hematuria and a diverting ileostomy urostomy for a history of prostate bladder carcinoma. History of recent GI bleed one month ago status post EGD with findings of nonbleeding duodenal ulcer. Etiology of hematuria appears to be urologic in source. Current Visit: Yes Status: Acute Code(s): Z87.19 - PERSONAL HISTORY OF OTHER DISEASES OF THE DIGESTIVE SYSTEM SNOMED Code(s): 303580134 (2) Acute blood loss anemia Current Visit: Yes Status: Acute Code(s): D62 - ACUTE POSTHEMORRHAGIC ANEMIA SNOMED Code(s): 765473795 (3) Acute kidney injury Current Visit: Yes Status: Acute Code(s): N17.9 - ACUTE KIDNEY FAILURE, UNSPECIFIED SNOMED Code(s): 84080861 (4) Coumadin toxicity Current Visit: Yes Status: Acute Code(s): T45.511A - POISONING BY ANTICOAGULANTS, ACCIDENTAL, INIT SNOMED Code(s): 44698110 Plan: 1. Protonix 40 mg IV twice a day. 2. Clear liquid diet. 3. Recent surveillance EGD contingent but not planned at this time. Recommend consult to urology. Patient refuses colonoscopy. CBC monitoring. Blood transfusion as indicated. Correction of INR preferably less than 2 before proceeding with endoscopic topic exams. We'll follow closely with you. Plan of care was was explained to patient and his daughter at bedside all questions were answered to their satisfaction. Thank you for this kind referral and the opportunity to participate in the care of your patient. This consultation was discussed with Dr. Adams. The impression and plan of care have been directed as dictated.
--- NOTE | 2018-06-17 11:42 | US ---
EXAMINATION TYPE: US kidneys/renal and bladder DATE OF EXAM: 06/17/2018 COMPARISON: US, CT CLINICAL HISTORY: judy. JUDY EXAM MEASUREMENTS: Right Kidney: 13.0 x 7.0 x 6.4 cm Left Kidney: 13.0 x 6.2 x 5.8 cm Right Kidney: Moderate hydro Left Kidney: Moderate hydro Bladder: ileostomy bag, bladder not visualized No nephrolithiasis is seen. No masses are identified. IMPRESSION: Moderate bilateral hydronephrosis
--- NOTE | 2018-06-17 13:04 | P.CNPUL ---
History of Present Illness Consult date: 06/17/18 Requesting physician: Baudilio De Leon Reason for consult: other Chief complaint: Bleeding from urostomy, weakness and fatigue and dark stool History of present illness: This is a 77-year-old white male with history of multiple medical problems, failure to our service, patient was inpatient recently, and he was admitted last time with multiple medical problems including GI bleeding, he was discharged home to live with his daughter on 05/17/2018. His other medical problems at the time included acute kidney injury, acute tubular necrosis, low blood pressure, atrial fibrillation, alcohol induced coagulopathy, negative EGD on the last admission, aspiration pneumonia was suspected on the last admission , severe LV dysfunction with ejection fraction of 25-50%, abnormal swallow study , patient is back last night to the ER complaining of profound weakness, fatigue , blood in the urine which is a chronic problem, and black stools. Initial hemoglobin was 5.2, patient received so far the total of 3 units of packed RBCs , and follow-up hemoglobin this morning is 6.9. Patient also received 4 units of fresh frozen plasma. His INR was elevated. 8.0, repeat INR this morning is 5.7. In addition to his profound anemia, patient was noted to have acute on chronic kidney injury. His last creatinine was 1.44 on discharge almost 4 weeks ago, and now it is 4.05. Nephrology was consulted, patient may or may not require hemodialysis. He was also seen by gastroenterology final recommendation is pending. In the meantime the patient is being monitored in the ICU, we are correcting his coagulopathy, we transfused the patient, hemodynamically stable, chest x-ray showed evidence of interstitial edema, questionable bibasilar pneumonia but I believe it is mostly interstitial edema rather than pneumonia. Patient was placed on Lasix, and we will continue to monitor the patient in the ICU for now. Patient denies any headache no blurred vision no dizziness. No nausea no vomiting no abdominal pain, he does have melena, no hematemesis. He is also complaining of blood in the urine from the urostomy bag. Denies any rashes. Denies any symptoms of osteoarthritis. Patient has been taking Coumadin for many years for his history of atrial fibrillation. Review of Systems 14 point review of systems were obtained, please refer to pertinent positives in HPI, otherwise remaining systems are negative. Past Medical History Past Medical History: Atrial Fibrillation, Cancer, Myocardial Infarction (CA) Additional Past Medical History / Comment(s): bladder ca, prostate ca had sx( urostomy) and 1 round of chemo in , afib, [place], hemorhoids, pt stated he was told by a dr that he had an enlarged heart, [place] Last Myocardial Infarction Date:: 2002 History of Any Multi-Drug Resistant Organisms: None Reported Past Surgical History: Adenoidectomy, Tonsillectomy Additional Past Surgical History / Comment(s): bladder and prostate removal-has urostomy Past Anesthesia/Blood Transfusion Reactions: No Reported Reaction Past Psychological History: No Psychological Hx Reported Additional Psychological History / Comment(s): pt lives alone in own home. used to work at [employer], no service. Smoking Status: Current every day smoker Past Alcohol Use History: Daily Additional Past Alcohol Use History / Comment(s): started smoking at age 15 or 16, smoked 1 ppd but quit 7 days ago. drinks 3 beer per day,denies drug use per daughter. Past Drug Use History: None Reported - Past Family History Father Family Medical History: No Reported History Mother Family Medical History: No Reported History Medications and Allergies Home Medications Medication Instructions Recorded Confirmed Type Isosorbide Mononitrate [Isosorbide 30 mg PO DAILY 01/02/16 06/16/18 History Mononitrate ER] Furosemide [Lasix] 40 mg PO DAILY #30 tab 01/08/16 06/16/18 Rx Lisinopril [Zestril] 2.5 mg PO DAILY #30 tab 01/08/16 06/16/18 Rx Metoprolol Tartrate [Lopressor] 75 mg PO BID 05/04/18 06/16/18 History Ipratropium-Albuterol Nebulize 3 ml INHALATION RT-Q12H PRN #60 05/21/18 Rx [Duoneb 0.5 mg-3 mg/3 ml Soln] ampul.neb Ferrous Sulfate [Feosol] 325 mg PO TID 06/16/18 06/16/18 History Omeprazole 20 mg PO BID 06/16/18 06/16/18 History Spironolactone [Aldactone] 25 mg PO DAILY 06/16/18 06/16/18 History Warfarin [Coumadin] 5 mg PO DAILY 06/16/18 06/16/18 History Allergies Allergy/AdvReac Type Severity Reaction Status Date / Time No Known Allergies Allergy Verified 06/16/18 12:32 Physical Exam Vitals: Vital Signs Temp Pulse Pulse Resp BP BP Pulse Ox 06/17/18 11:00 84 20 115/75 97 06/17/18 10:30 99 22 115/75 98 06/17/18 10:00 93 21 118/76 98 06/17/18 09:30 94 17 118/76 99 06/17/18 09:26 101 H 16 06/17/18 09:17 100 16 06/17/18 09:00 109 H 24 111/66 98 06/17/18 08:30 75 13 111/66 98 06/17/18 08:00 86 17 114/64 98 06/17/18 07:30 84 11 L 114/64 98 06/17/18 07:00 82 13 102/59 96 06/17/18 06:30 80 20 102/59 97 06/17/18 06:00 81 12 117/60 97 06/17/18 05:53 97.8 F 82 19 117/60 06/17/18 05:00 76 18 107/54 98 06/17/18 04:30 80 24 107/54 98 06/17/18 04:00 98.1 F 82 17 117/53 99 06/17/18 03:30 81 15 117/53 99 06/17/18 03:23 97.6 F 88 18 117/53 98 06/17/18 03:00 78 27 H 115/61 100 06/17/18 02:53 98 F 72 14 115/61 99 06/17/18 02:43 97.6 F 81 20 107/65 99 06/17/18 02:30 75 14 107/55 99 06/17/18 02:00 76 28 H 112/58 99 06/17/18 01:00 89 15 109/69 98 06/17/18 00:21 98.1 F 85 20 109/69 98 06/17/18 00:00 98.0 F 85 21 131/66 99 06/16/18 23:42 105 H 16 06/16/18 23:30 92 19 131/66 100 06/16/18 23:29 102 H 18 06/16/18 23:20 102 H 23 113/67 94 L 09/19/18 23:10 109 H 24 113/67 93 L 06/16/18 23:00 96 26 H 113/67 95 06/16/18 22:50 109 H 27 H 113/67 93 L 06/16/18 22:40 98 18 113/67 95 06/16/18 22:30 117 H 30 H 113/67 91 L 06/16/18 22:24 97.0 F L 107 H 22 131/66 94 L 06/16/18 22:20 97.6 F 100 22 118/75 93 L 06/16/18 21:59 97.0 F L 84 20 99/58 06/16/18 21:44 97.6 F 106 H 24 113/64 94 L 06/16/18 21:39 97.2 F L 96 20 115/63 06/16/18 21:29 97 F L 103 H 20 101/64 95 06/16/18 21:28 97.1 F L 92 20 109/61 95 06/16/18 21:26 97.6 F 108 H 23 113/67 93 L 06/16/18 20:29 97.1 F L 113 H 20 103/55 06/16/18 19:36 97.1 F L 69 20 99/60 06/16/18 19:19 97.0 F L 104 H 18 108/55 06/16/18 19:06 97.8 F 91 18 111/62 100 06/16/18 14:50 95 18 122/91 95 06/16/18 13:53 18 Intake and Output 06/16/18 06/17/18 06/17/18 22:59 06:59 14:59 Intake Total 710 1980 340 Output Total 1075 750 Balance 710 905 -410 Intake: IV 560 340 Sodium Chloride 0.9% 1, 560 340 000 ml @ 80 mls/hr IV . [id number] [facility] Rx#:[id number] Amount of Fluid Infused ( 400 ml) Oral 400 Blood Product 310 920 Rc As-1 Unit 310 [id number] Rc As-1 Unit 310 [id number] Rc As-1 Unit 0 310 [id number] Other 100 Rc As-1 Unit 100 [id number] Output: Urine 1075 750 Other: Weight 97.6 kg 103.3 kg Physical Exam: Revealed a 77-year-old white male in no distress. Head: Atraumatic, normocephalic. Patient looks pale. HEENT:[Neck is supple.] [No neck masses.] [No thyromegaly.] [No JVD.] Dry mucous membranes, no icterus. Throat is clear, nasal mucosa is normal. Chest: [Minimal fine crackles at the bases, no rhonchi and no wheezes Cardiac Exam: Irregular irregular rhythm [Normal S1 and S2, no S3 gallop, 2/6 systolic murmur thought the precordium.] Abdomen: [Soft, nontender, no megaly, no rebound, no guarding, normal bowel sounds.] Urostomy bag is noted. Red tinged urine noted in the back. Extremities: [No clubbing, 2+ bipedal edema, no cyanosis.] Neurological Exam: [No focal neurologic deficit.] Psychiatric: Normal mood, affect and mental status examination. Lymphatics: No lymphadenopathy. Results - Laboratory Findings CBC and BMP: 06/17/18 06:38 06/17/18 06:38 PT/INR, D-dimer PT 51.7 sec (9.0-12.0) H 06/17/18 09:05 INR 5.7 (<1.2) H* 06/17/18 09:05 Abnormal lab findings: Abnormal Labs 06/16/18 06/16/18 06/16/18 13:30 13:30 13:30 RBC 1.75 L Hgb 5.2 L* Hct 16.2 L* RDW 19.4 H Plt Count 129 L Lymphocytes # 0.8 L PT INR APTT Chloride 108 H Carbon Dioxide 20 L BUN 74 H Creatinine 4.05 H POC Glucose (mg/dL) Phosphorus Total Creatine Kinase 23 L Total Protein 5.9 L Albumin 3.0 L Urine pH Urine Protein Urine Blood Ur Leukocyte Esterase Urine RBC Urine WBC Urine Bacteria Urine Mucus Crossmatch 06/16/18 06/16/18 06/16/18 13:30 13:30 15:32 RBC Hgb Hct RDW Plt Count Lymphocytes # PT 73.7 H INR 8.0 H* APTT 49.4 H Chloride Carbon Dioxide BUN Creatinine POC Glucose (mg/dL) Phosphorus Total Creatine Kinase Total Protein Albumin Urine pH 8.5 H Urine Protein 2+ H Urine Blood Large H Ur Leukocyte Esterase Trace H Urine RBC 103 H Urine WBC 73 H Urine Bacteria Few H Urine Mucus Rare H Crossmatch See Detail 06/16/18 06/17/18 06/17/18 22:16 01:33 06:38 RBC 2.24 L 2.38 L Hgb 6.4 L* 6.9 L* Hct 20.4 L 21.8 L RDW 18.4 H 17.9 H Plt Count 111 L 104 L Lymphocytes # 0.9 L 0.8 L PT INR APTT Chloride Carbon Dioxide BUN Creatinine POC Glucose (mg/dL) 114 H Phosphorus Total Creatine Kinase Total Protein Albumin Urine pH Urine Protein Urine Blood Ur Leukocyte Esterase Urine RBC Urine WBC Urine Bacteria Urine Mucus Crossmatch 06/17/18 06/17/18 06:38 09:05 RBC Hgb Hct RDW Plt Count Lymphocytes # PT 51.7 H INR 5.7 H* APTT Chloride 110 H Carbon Dioxide 20 L BUN 74 H Creatinine 4.05 H POC Glucose (mg/dL) Phosphorus 5.4 H Total Creatine Kinase Total Protein Albumin Urine pH Urine Protein Urine Blood Ur Leukocyte Esterase Urine RBC Urine WBC Urine Bacteria Urine Mucus Crossmatch - Diagnostic Findings Chest x-ray: image reviewed (As noted in HPI.) Assessment and Plan Assessment: Impression: 1 acute on chronic GI bleeding, most likely secondary to Coumadin induced coagulopathy. Patient has been experiencing recurrent blood loss and anemia as well as hematuria last EGD on the last admission showed nonbleeding duodenal ulcer. 2 history of alcohol abuse, patient stated to me that he has not had a drink since May 05. 3 acute blood loss, GI bleeding and hematuria, workup is in progress. GI is evaluating the patient. And the hematuria is chronic in nature. 4 acute Coumadin toxicity 5 acute on chronic kidney injury, likely cardiorenal with LV dysfunction. 6 chronic atrial fibrillation, on Coumadin. 7 severe LV dysfunction and chronic systolic congestive heart failure strongly doubt pneumonia. Patient has history of underlying coronary artery disease and previous myocardial infarction. Recommendation: Manage coagulopathy, patient received 3 units of packed RBCs so far, and 4 units of fresh frozen plasma. He also received vitamin K. Monitor in the ICU, serial hemoglobin and hematocrit. May or may not require colonoscopy on this admission. GI is evaluating. Monitor kidney status, patient is being followed by nephrology. Diurese patient for what seems to be a picture of chronic systolic congestive heart failure. We'll continue to follow in the ICU, continue Protonix, will follow closely. Time with Patient: Greater than 30
[2018-06-17] MEDS: SODIUM CHLORIDE 0.9% 1,000 ML IV SCH ×2 (13:49→17:42)
--- NOTE | 2018-06-17 14:30 | PN ---
PROGRESS NOTE DATE OF SERVICE: 06/17/2018 CHIEF COMPLAINT: Upper gastrointestinal hemorrhage, hypovolemia, blood loss anemia, atrial fibrillation. HISTORY OF PRESENT ILLNESS: This gentleman is awake and alert and feels fine. He has no chest pain. His BUN is 74 with a creatinine of 4.05, however. PHYSICAL EXAM: Chest is fairly clear. There are occasional rales. Cardiac exam demonstrates atrial fibrillation. Abdomen is soft and nontender. IMPRESSION: 1. Gastrointestinal blood loss. 2. Hypovolemia. 3. Blood loss anemia. 4. Renal failure. 5. Atrial fibrillation. PLAN: Continue on current program and bring INR completely under control. He will also be seen by Nephrology. MMODL / IJN: [id number] /
[2018-06-17] MEDS: MAGNESIUM SULFATE-D5W PMX 1 GM in DEXTROSE/WATER 1 100ML.BAG IVPB SCH ×2 (14:38→17:42)
[2018-06-17] MEDS: DARBEPOETIN ALFA 40 MCG/0.4 ML SYRINGE SQ SCH (18:46)
[2018-06-18 04:49] LABS: INR 2.9 (<1.2)
[2018-06-18 05:03] LABS: Calcium 8.9 mg/dL (8.4-10.2); Magnesium 1.9 mg/dL (1.6-2.3); Phosphorus 5.4 mg/dL (2.5-4.5); Potassium 4.4 mmol/L (3.5-5.1)
[2018-06-18 05:06] LABS: Anisocytosis Slight; Basophils % (A) 0 %; Eosinophils # (A) 0.1 k/uL (0-0.7); Eosinophils % (A) 1 %; Hypochromasia Marked; Lymphocytes # (A) 0.9 k/uL (1.0-4.8); Lymphocytes % (A) 16 %; MCH 29.2 pg (25.0-35.0); MCHC 31.1 g/dL (31.0-37.0); MCV 94.1 fL (80.0-100.0); Mean Platelet Volume 9.6; Monocytes # (A) 0.9 k/uL (0-1.0); Monocytes % (A) 16 %; Neutrophils # (A) 3.3 k/uL (1.3-7.7); Neutrophils % (A) 63 %; Platelet Count 104 k/uL (150-450); Poikilocytosis Slight; RBC 2.12 m/uL (4.30-5.90); RDW 17.8 % (11.5-15.5); WBC 5.3 k/uL (3.8-10.6)
[2018-06-18 05:22] LABS: HGB 6.2 gm/dL (13.0-17.5)
[2018-06-18 05:23] LABS: HCT 19.9 % (39.0-53.0)
[2018-06-18] MEDS ORDERED: MAGNESIUM SULFATE-D5W PMX 1 GM in DEXTROSE/WATER 1 100ML.BAG IVPB ONE (06:11)
[2018-06-18] MEDS: IPRATROPIUM-ALBUTEROL 3 ML NEB INHALATION PRN ×4 (07:26→19:06)
--- NOTE | 2018-06-18 08:02 | XR ---
EXAMINATION TYPE: XR chest 1V DATE OF EXAM: 06/18/2018 CLINICAL HISTORY: Difficulty breathing progress study. TECHNIQUE: 2 AP portable upright views of the chest are obtained. COMPARISON: Chest x-ray from one day earlier and older studies. FINDINGS: There is persistent cardiomegaly with fairly moderate central vascular congestion and smal l bilateral pleural effusions all redemonstrated. There is associated bibasilar compressive atelectas is. Upper lungs remain clear without pneumothorax. Degenerative change bilateral glenohumeral joints is redemonstrated. IMPRESSION: Overall stable findings, findings consistent with CHF exacerbation redemonstrated as th ere is cardiomegaly with moderate central vascular congestion and small bilateral pleural effusions a ll redemonstrated.
[2018-06-18] MEDS: PANTOPRAZOLE 40 MG TABLET PO SCH (08:37)
[2018-06-18] MEDS: FERROUS SULFATE 325 MG TAB PO SCH ×3 (08:37→21:52)
[2018-06-18] MEDS: ISOSORBIDE MONONITRATE ER 30 MG TAB.ER.24H PO SCH (08:37)
[2018-06-18] MEDS: SPIRONOLACTONE 25 MG TAB PO SCH (08:37)
[2018-06-18] MEDS: METOPROLOL TARTRATE 25 MG TAB PO SCH ×2 (08:38→21:52)
[2018-06-18] MEDS: SODIUM CHLORIDE 0.9% 1,000 ML IV SCH (10:00)
[2018-06-18] MEDS ORDERED: FUROSEMIDE 10 MG/ML 10 ML VIAL IV STA (10:29)
--- NOTE | 2018-06-18 10:54 | P.PN ---
Subjective Progress Note Date: 06/18/18 Principal diagnosis: Acute on chronic GI bleeding and Coumadin induced coagulopathy. Chronic hematuria. This is a 77-year-old white male with history of multiple medical problems, failure to our service, patient was inpatient recently, and he was admitted last time with multiple medical problems including GI bleeding, he was discharged home to live with his daughter on 05/17/2018. His other medical problems at the time included acute kidney injury, acute tubular necrosis, low blood pressure, atrial fibrillation, alcohol induced coagulopathy, negative EGD on the last admission, aspiration pneumonia was suspected on the last admission , severe LV dysfunction with ejection fraction of 25-50%, abnormal swallow study , patient is back last night to the ER complaining of profound weakness, fatigue , blood in the urine which is a chronic problem, and black stools. Initial hemoglobin was 5.2, patient received so far the total of 3 units of packed RBCs , and follow-up hemoglobin this morning is 6.9. Patient also received 4 units of fresh frozen plasma. His INR was elevated. 8.0, repeat INR this morning is 5.7. In addition to his profound anemia, patient was noted to have acute on chronic kidney injury. His last creatinine was 1.44 on discharge almost 4 weeks ago, and now it is 4.05. Nephrology was consulted, patient may or may not require hemodialysis. He was also seen by gastroenterology final recommendation is pending. In the meantime the patient is being monitored in the ICU, we are correcting his coagulopathy, we transfused the patient, hemodynamically stable, chest x-ray showed evidence of interstitial edema, questionable bibasilar pneumonia but I believe it is mostly interstitial edema rather than pneumonia. Patient was placed on Lasix, and we will continue to monitor the patient in the ICU for now. Patient denies any headache no blurred vision no dizziness. No nausea no vomiting no abdominal pain, he does have melena, no hematemesis. He is also complaining of blood in the urine from the urostomy bag. Denies any rashes. Denies any symptoms of osteoarthritis. Patient has been taking Coumadin for many years for his history of atrial fibrillation. Patient was reevaluated today on 06/18/2018, remains in the intensive care unit, continues to have drop in his hemoglobin. Required another unit of packed RBCs today. His bleeding from urostomy has completely resolved. Has not had a bowel movement since yesterday. Hemoglobin this morning is 6.2, and it was 6.9 yesterday. Another unit of blood was ordered to be given this morning. His INR is down to 2.9 from 5.7 yesterday. It was initially above 8 on presentation. Slight improvement in renal functioning is noted BUN is 74 creatinine is down to 3.84. Chest x-ray continues to show evidence of pulmonary edema, difficult to rule out underlying infiltrate. Hence the patient will be given more Lasix today. And I would maintain him on Lasix every 12 hours. Hemodynamically, the patient remains stable. Since admission the patient had received a total of 4 units of packed RBCs including the one being transfused this morning. Objective - Vital Signs Vital signs: Vital Signs Temp 97.8 F 06/18/18 09:48 Pulse 101 H 06/18/18 10:00 Resp 17 06/18/18 10:00 BP 105/71 06/18/18 10:00 Pulse Ox 94 L 06/18/18 10:00 Intake & Output 06/17/18 06/18/18 06/18/18 18:59 06:59 18:59 Intake Total 1650 600 440 Output Total 2175 1310 225 Balance -525 -710 215 Weight 103.1 kg Intake: IV 590 600 200 Magnesium Sulfate-D5w Pmx 100 1 gm In Dextrose/Water 1 100ml.bag @ 100 mls/hr IVPB ONCE ONE Rx#: [id number] Sodium Chloride 0.9% 1, 590 600 100 000 ml @ 50 mls/hr IV . Q20H [facility] Rx#:[id number] Intake, IV Titration 200 Amount Magnesium Sulfate-D5w Pmx 200 1 gm In Dextrose/Water 1 100ml.bag @ 100 mls/hr IVPB Q1H [facility] Rx#: [id number] Oral 860 240 Blood Product 0 Rc As-1 Unit 0 [id number] Output: Urine 2175 1310 225 - Exam Physical Exam: Patient is comfortable, sitting in bed, in no distress. Head: Unremarkable. HEENT:[PERRLA, EOMI, neck supple, no neck masses. Chest: [Diminished breath sounds at the bases with crackles bilaterally. No rhonchi and no wheezes. Cardiac Exam: [Normal S1 and S2, no S3 gallop, no murmur.] Abdomen: [Soft, urostomy bag is intact, no bleeding noted in the urostomy bag. No rebound no guarding. Extremities: [No clubbing, no cyanosis, 2+ bipedal edema persists. Neurological Exam: Alert oriented 3, no focal deficit. Creatinine: Normal mood affect and intact mental status. Lymphatics: No palpable lymph nodes noted. - Labs CBC & Chem 7: 06/18/18 04:27 06/18/18 04:27 Labs: Abnormal Lab Results - Last 24 Hours (Table) 06/16/18 06/18/18 06/18/18 Range/Units 13:30 04:27 04:27 RBC 2.12 L (4.30-5.90) m/uL Hgb 6.2 L* (13.0-17.5) gm/dL Hct 19.9 L* (39.0-53.0) % RDW 17.8 H (11.5-15.5) % Plt Count 104 L (150-450) k/uL Lymphocytes # 0.9 L (1.0-4.8) k/uL PT (9.0-12.0) sec INR (<1.2) Carbon Dioxide 19 L (22-30) mmol/L BUN 74 H (9-20) mg/dL Creatinine 3.84 H (0.66-1.25) mg/dL Phosphorus 5.4 H (2.5-4.5) mg/dL Crossmatch See Detail 06/18/18 Range/Units 04:27 RBC (4.30-5.90) m/uL Hgb (13.0-17.5) gm/dL Hct (39.0-53.0) % RDW (11.5-15.5) % Plt Count (150-450) k/uL Lymphocytes # (1.0-4.8) k/uL PT 26.0 H (9.0-12.0) sec INR 2.9 H (<1.2) Carbon Dioxide (22-30) mmol/L BUN (9-20) mg/dL Creatinine (0.66-1.25) mg/dL Phosphorus (2.5-4.5) mg/dL Crossmatch Assessment and Plan Plan: Impression: 1 acute Coumadin coagulopathy with acute on chronic GI bleeding and hematuria which is also acute on chronic. 2 acute blood loss and anemia 3 history of alcoholism, quit drinking almost 6 weeks ago. 4 multiple comorbidities including severe LV dysfunction and congestive heart failure, mostly systolic in nature. Acute on chronic kidney injury, chronic atrial fibrillation, Recommendation: We'll continue present supportive care measures, transfusion was given this morning, hematuria had resolved, suspect that his anemia is mostly GI in nature. No evidence of any bleeding grossly in the urostomy back today. We'll continue to monitor in the ICU today, continue serial hemoglobin and hematocrit, monitor coagulopathy, being followed by nephrology. Time with Patient: Less than 30
--- NOTE | 2018-06-18 11:55 | PN ---
PROGRESS NOTE DATE OF SERVICE: 06/18/2018 CHIEF COMPLAINT: GI bleed, atrial fibrillation and anemia with renal failure. HISTORY OF PRESENT ILLNESS: This patient is doing well and feeling well, but his hemoglobin continues to stay extremely low. It is back down 6.2. His INR is 2.9 and coming down. Kidney function is poor with a BUN of 74 and a creatinine of 3.84 with a GFR 14. PHYSICAL EXAM: Breath sounds are decreased throughout with scattered rales. Cardiac exam demonstrates atrial fibrillation. Abdomen is soft, nontender. IMPRESSION: 1. Upper gastrointestinal bleed. 2. Blood loss anemia. 3. Iatrogenic hyperprothrombinemia. 4. Acute renal failure on top of chronic kidney disease. PLAN: No change in program and he will continue to be transfused. MMODL / IJN: [id number] /
--- NOTE | 2018-06-18 13:00 | P.PN ---
Subjective Progress Note Date: 06/18/18 Principal diagnosis: Anemia 77-year-old male history of duodenal ulcer status post EGD 1 month ago admitted with supratherapeutic INR anemia and hematuria. Hematuria has resolved. Tolerating regular diet. Denies abdominal pain. Denies hematemesis hematochezia or melena. Hemoglobin 6.2. INR 2.9. Received 4 units of blood since admission. Objective - Vital Signs Vital signs: Vital Signs Temp 97.9 F 06/18/18 11:19 Pulse 93 06/18/18 11:19 Resp 19 06/18/18 11:19 BP 113/62 06/18/18 11:19 Pulse Ox 98 06/18/18 11:19 Intake & Output 06/17/18 06/18/18 06/18/18 18:59 06:59 18:59 Intake Total 1650 600 930 Output Total 2175 1310 590 Balance -525 -710 340 Weight 103.1 kg Intake: IV 590 600 200 Magnesium Sulfate-D5w Pmx 100 1 gm In Dextrose/Water 1 100ml.bag @ 100 mls/hr IVPB ONCE ONE Rx#: [id number] Sodium Chloride 0.9% 1, 590 600 100 000 ml @ 25 mls/hr IV . Q24H [facility] Rx#:[id number] Intake, IV Titration 200 Amount Magnesium Sulfate-D5w Pmx 200 1 gm In Dextrose/Water 1 100ml.bag @ 100 mls/hr IVPB Q1H [facility] Rx#: [id number] Oral 860 420 Blood Product 310 Rc As-1 Unit 310 [id number] Output: Urine 2175 1310 590 - Exam General appearance: The patient is alert, oriented, in no acute distress. HET: Head is normocephalic and atraumatic. Pupils are equal and reactive. Oropharynx is clear without lesions. Neck: Supple without lymphadenopathy. Trachea midline. Heart: S1 S2. Regular rate and rhythm. Lungs: No crackles or wheezes are heard. Abdomen: Soft, nontender, nondistended with bowel sounds. Urostomy with clear yellow urine. No peritoneal signs. No palpable organomegaly or masses. Extremities: Normal skin color and turgor. No cyanosis, rash, ulceration, clubbing, or edema. Radial and pedal pulses are 2/4 bilaterally. Neurological: No focal deficits. Strength and sensation are grossly intact. - Labs CBC & Chem 7: 06/18/18 04:27 06/18/18 04:27 Labs: Abnormal Lab Results - Last 24 Hours (Table) 06/16/18 06/18/18 06/18/18 Range/Units 13:30 04:27 04:27 RBC 2.12 L (4.30-5.90) m/uL Hgb 6.2 L* (13.0-17.5) gm/dL Hct 19.9 L* (39.0-53.0) % RDW 17.8 H (11.5-15.5) % Plt Count 104 L (150-450) k/uL Lymphocytes # 0.9 L (1.0-4.8) k/uL PT (9.0-12.0) sec INR (<1.2) Carbon Dioxide 19 L (22-30) mmol/L BUN 74 H (9-20) mg/dL Creatinine 3.84 H (0.66-1.25) mg/dL Phosphorus 5.4 H (2.5-4.5) mg/dL Crossmatch See Detail 06/18/18 Range/Units 04:27 RBC (4.30-5.90) m/uL Hgb (13.0-17.5) gm/dL Hct (39.0-53.0) % RDW (11.5-15.5) % Plt Count (150-450) k/uL Lymphocytes # (1.0-4.8) k/uL PT 26.0 H (9.0-12.0) sec INR 2.9 H (<1.2) Carbon Dioxide (22-30) mmol/L BUN (9-20) mg/dL Creatinine (0.66-1.25) mg/dL Phosphorus (2.5-4.5) mg/dL Crossmatch Assessment and Plan (1) History of duodenal ulcer Narrative/Plan: 77-year-old gentleman admitted with recurrent acute blood loss anemia supratherapeutic INR secondary to warfarin for history of chronic atrial fibrillation. New-onset of hematuria and a diverting ileostomy urostomy for a history of prostate bladder carcinoma. History of recent GI bleed one month ago status post EGD with findings of nonbleeding duodenal ulcer. Etiology of hematuria appears to be urologic in source. Current Visit: Yes Status: Acute Code(s): Z87.19 - PERSONAL HISTORY OF OTHER DISEASES OF THE DIGESTIVE SYSTEM SNOMED Code(s): 648752172 (2) Acute blood loss anemia Current Visit: Yes Status: Acute Code(s): D62 - ACUTE POSTHEMORRHAGIC ANEMIA SNOMED Code(s): 428519746 (3) Acute kidney injury Current Visit: Yes Status: Acute Code(s): N17.9 - ACUTE KIDNEY FAILURE, UNSPECIFIED SNOMED Code(s): 57110371 (4) Coumadin toxicity Current Visit: Yes Status: Acute Code(s): T45.511A - POISONING BY ANTICOAGULANTS, ACCIDENTAL, INIT SNOMED Code(s): 23193325 Plan: 1. Protonix 40 mg IV twice a day. 2. Regular diet. Hematuria has resolved. Continue CBC PT/INR monitoring. 3. No plans to proceed with endoscopic intervention at this time. We'll follow with you. Assessment and plan a care discussed with Dr. Adams
--- NOTE | 2018-06-18 13:08 | P.PN ---
Subjective Patient is seen in follow-up for acute kidney injury. Creatinine was 4.05 on admission and is 3.84 today. His hemoglobin was again low at 6.2 this morning for which she did receive a blood transfusion. INR is down to 2.9. Patient has history of systolic CHF with ejection fraction of 25-30% with moderate mitral and tricuspid regurgitation. Chest x-ray suggestive of fluid overload. He is nonoliguric. Denies any melena or hematochezia. Urine is clear. No hematemesis. Oral intake is good. Vital signs are stable. General: The patient appeared well nourished and normally developed. HEENT: Head exam is unremarkable. Neck is without jugular venous distension. LUNGS: Lungs are clear to auscultation and percussion. Breath sounds decreased. HEART: Rate and Rhythm are regular. First and second heart sounds normal. No murmurs, rubs or gallops. ABDOMEN: Abdominal exam reveals normal bowel sounds. Non-tender and non- distended. No evidence of peritonitis. EXTREMITITES: No clubbing, cyanosis, or edema. Objective - Vital Signs Vital signs: Vital Signs Temp 97.9 F 06/18/18 11:19 Pulse 93 06/18/18 11:19 Resp 19 06/18/18 11:19 BP 113/62 06/18/18 11:19 Pulse Ox 98 06/18/18 11:19 Intake & Output 06/17/18 06/18/18 06/18/18 18:59 06:59 18:59 Intake Total 1650 600 930 Output Total 2175 1310 590 Balance -525 -710 340 Weight 103.1 kg Intake: IV 590 600 200 Magnesium Sulfate-D5w Pmx 100 1 gm In Dextrose/Water 1 100ml.bag @ 100 mls/hr IVPB ONCE ONE Rx#: [id number] Sodium Chloride 0.9% 1, 590 600 100 000 ml @ 25 mls/hr IV . Q24H [facility] Rx#:[id number] Intake, IV Titration 200 Amount Magnesium Sulfate-D5w Pmx 200 1 gm In Dextrose/Water 1 100ml.bag @ 100 mls/hr IVPB Q1H [facility] Rx#: [id number] Oral 860 420 Blood Product 310 Rc As-1 Unit 310 [id number] Output: Urine 2175 1310 590 - Labs CBC & Chem 7: 06/18/18 04:27 06/18/18 04:27 Labs: Abnormal Lab Results - Last 24 Hours (Table) 06/16/18 06/18/18 06/18/18 Range/Units 13:30 04:27 04:27 RBC 2.12 L (4.30-5.90) m/uL Hgb 6.2 L* (13.0-17.5) gm/dL Hct 19.9 L* (39.0-53.0) % RDW 17.8 H (11.5-15.5) % Plt Count 104 L (150-450) k/uL Lymphocytes # 0.9 L (1.0-4.8) k/uL PT (9.0-12.0) sec INR (<1.2) Carbon Dioxide 19 L (22-30) mmol/L BUN 74 H (9-20) mg/dL Creatinine 3.84 H (0.66-1.25) mg/dL Phosphorus 5.4 H (2.5-4.5) mg/dL Crossmatch See Detail 06/18/18 Range/Units 04:27 RBC (4.30-5.90) m/uL Hgb (13.0-17.5) gm/dL Hct (39.0-53.0) % RDW (11.5-15.5) % Plt Count (150-450) k/uL Lymphocytes # (1.0-4.8) k/uL PT 26.0 H (9.0-12.0) sec INR 2.9 H (<1.2) Carbon Dioxide (22-30) mmol/L BUN (9-20) mg/dL Creatinine (0.66-1.25) mg/dL Phosphorus (2.5-4.5) mg/dL Crossmatch Assessment and Plan Plan: Assessment: 1. Nonoliguric acute kidney injury secondary to ATN secondary to acute anemia. Creatinine 4.05 on admission and is down to 3.84 today. Creatinine was 1.2 in April 2018. Patient is noted to have moderate bilateral hydronephrosis. 2. Metabolic acidosis secondary to acute kidney injury. 3. Hyperphosphatemia secondary to acute kidney injury. 4. Acute blood loss anemia secondary to Coumadin toxicity status post 3 units blood transfusion. GI following. The patient has a history of duodenal ulcer. Patient also received a dose of IV DDAVP on June 17. 5. Systolic CHF with ejection fraction of 25-30% with moderate mitral and tricuspid regurgitation. 6. Hypomagnesemia from GI losses. Improved post replacement. Plan: Start Lasix 60 mg IV twice daily. Continue to monitor renal function and urine output. Maintain Aranesp. Avoid nephrotoxins. Add oral sodium bicarbonate. Add PhosLo with meals.
--- NOTE | 2018-06-18 16:11 | P.GSCN ---
History of Present Illness Consult date: 06/18/18 Reason for Consult: Gross hematuria and bilateral hydronephrosis History of present illness: The patient is a 77-year-old male admitted through the emergency room on 06/16 for evaluation of anemia and acute renal failure. At the time of admission the patient had a hemoglobin of 5.2. BUN/creatinine were 74/4.05. Patient had been taking Coumadin and his INR was 8.0. He has received blood transfusions and his hemoglobin today is 6.2. INR is 2.9 and BUN/creatinine are 74/3.84. Renal ultrasound on 06/17 showed moderate bilateral hydronephrosis. The patient had blood in his stools and bloody urine at the time of admission and these have both cleared since then. The patient was evaluated by me on 05/09/2018. At that time he was intubated and in the intensive care unit. A computed tomography scan on 05/09/2018 showed bilateral hydronephrosis which was new compared with a computed tomography scan dated 01/03/2016. BUN and creatinine at that time were 60/2.01. The patient has a history of bladder cancer treated with radical cystoprostatectomy and ileal conduit urinary diversion at [facility] in 2004 or 2005 but had not been seen back in follow-up in years. I recommended a loopogram either at this facility or at the [facility] for follow-up of the hydronephrosis but this had not been performed. He was seen by me in 12/2015 due to hematuria which at that time appeared to be related to the use of warfarin. The patient did not return for any follow-up and says that he's had intermittent gross hematuria ever since then. He believes the hematuria has worsened over the last month. He denies any abdominal pain at the present time. Review of Systems - Constitutional Denies fever - Cardiovascular Reports shortness of breath - Respiratory Reports cough - Gastrointestinal Denies abdominal pain, Denies hematemesis - Genitourinary Reports as per HPI Past Medical History Past Medical History: Atrial Fibrillation, Cancer, Myocardial Infarction ([place]) Additional Past Medical History / Comment(s): bladder ca, prostate ca had sx( urostomy) and 1 round of chemo in , afib, te-moak, hemorhoids, pt stated he was told by a dr that he had an enlarged heart, te-moak Last Myocardial Infarction Date:: 2002 History of Any Multi-Drug Resistant Organisms: None Reported Past Surgical History: Adenoidectomy, Tonsillectomy Additional Past Surgical History / Comment(s): 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 Past Anesthesia/Blood Transfusion Reactions: No Reported Reaction Past Psychological History: No Psychological Hx Reported Additional Psychological History / Comment(s): pt lives alone in own home. used to work at [employer], no service. Smoking Status: Current every day smoker Past Alcohol Use History: Daily Additional Past Alcohol Use History / Comment(s): started smoking at age 15 or 16, smoked 1 ppd but quit 7 days ago. drinks 3 beer per day,denies drug use per daughter. Past Drug Use History: None Reported - Past Family History Father Family Medical History: No Reported History Mother Family Medical History: No Reported History Medications and Allergies Home Medications Medication Instructions Recorded Confirmed Type Isosorbide Mononitrate [Isosorbide 30 mg PO DAILY 01/02/16 06/16/18 History Mononitrate ER] Furosemide [Lasix] 40 mg PO DAILY #30 tab 01/08/16 06/16/18 Rx Lisinopril [Zestril] 2.5 mg PO DAILY #30 tab 01/08/16 06/16/18 Rx Metoprolol Tartrate [Lopressor] 75 mg PO BID 05/04/18 06/16/18 History Ipratropium-Albuterol Nebulize 3 ml INHALATION RT-Q12H PRN #60 05/21/18 Rx [Duoneb 0.5 mg-3 mg/3 ml Soln] ampul.neb Ferrous Sulfate [Feosol] 325 mg PO TID 06/16/18 06/16/18 History Omeprazole 20 mg PO BID 06/16/18 06/16/18 History Spironolactone [Aldactone] 25 mg PO DAILY 06/16/18 06/16/18 History Warfarin [Coumadin] 5 mg PO DAILY 06/16/18 06/16/18 History Allergies Allergy/AdvReac Type Severity Reaction Status Date / Time No Known Allergies Allergy Verified 06/16/18 12:32 Surgical - Exam Vital Signs Temp Pulse Resp BP Pulse Ox 97.6 F 88 20 108/60 95 06/16/18 12:30 06/16/18 12:30 06/16/18 12:30 06/16/18 12:30 06/16/18 12:30 - General well developed, well nourished, no distress - Neck no masses, no lymphadectomy - Respiratory normal respiratory effort - Abdomen Abdomen: soft, non tender, no organomegaly (Urostomy is present in the right abdomen. Clear urine is draining from the urostomy. There is no evidence of stomal stenosis.) - Genitourinary normal penis with no external lesions Results - Labs 06/18/18 04:27 06/18/18 04:27 Abnormal Lab Results - Last 24 Hours (Table) 06/16/18 06/18/18 06/18/18 Range/Units 13:30 04:27 04:27 RBC 2.12 L (4.30-5.90) m/uL Hgb 6.2 L* (13.0-17.5) gm/dL Hct 19.9 L* (39.0-53.0) % RDW 17.8 H (11.5-15.5) % Plt Count 104 L (150-450) k/uL Lymphocytes # 0.9 L (1.0-4.8) k/uL PT (9.0-12.0) sec INR (<1.2) Carbon Dioxide 19 L (22-30) mmol/L BUN 74 H (9-20) mg/dL Creatinine 3.84 H (0.66-1.25) mg/dL Phosphorus 5.4 H (2.5-4.5) mg/dL Crossmatch See Detail 06/18/18 Range/Units 04:27 RBC (4.30-5.90) m/uL Hgb (13.0-17.5) gm/dL Hct (39.0-53.0) % RDW (11.5-15.5) % Plt Count (150-450) k/uL Lymphocytes # (1.0-4.8) k/uL PT 26.0 H (9.0-12.0) sec INR 2.9 H (<1.2) Carbon Dioxide (22-30) mmol/L BUN (9-20) mg/dL Creatinine (0.66-1.25) mg/dL Phosphorus (2.5-4.5) mg/dL Crossmatch Diabetes panel 06/18/18 Range/Units 04:27 Sodium 137 (137-145) mmol/L Potassium 4.4 (3.5-5.1) mmol/L Chloride 107 (98-107) mmol/L Carbon Dioxide 19 L (22-30) mmol/L BUN 74 H (9-20) mg/dL Creatinine 3.84 H (0.66-1.25) mg/dL Glucose 87 (74-99) mg/dL Calcium 8.9 (8.4-10.2) mg/dL Calcium panel 06/18/18 Range/Units 04:27 Calcium 8.9 (8.4-10.2) mg/dL Phosphorus 5.4 H (2.5-4.5) mg/dL Pituitary panel 06/18/18 Range/Units 04:27 Sodium 137 (137-145) mmol/L Potassium 4.4 (3.5-5.1) mmol/L Chloride 107 (98-107) mmol/L Carbon Dioxide 19 L (22-30) mmol/L BUN 74 H (9-20) mg/dL Creatinine 3.84 H (0.66-1.25) mg/dL Glucose 87 (74-99) mg/dL Calcium 8.9 (8.4-10.2) mg/dL Adrenal panel 06/18/18 Range/Units 04:27 Sodium 137 (137-145) mmol/L Potassium 4.4 (3.5-5.1) mmol/L Chloride 107 (98-107) mmol/L Carbon Dioxide 19 L (22-30) mmol/L BUN 74 H (9-20) mg/dL Creatinine 3.84 H (0.66-1.25) mg/dL Glucose 87 (74-99) mg/dL Calcium 8.9 (8.4-10.2) mg/dL - Imaging CT scan - abdomen: image reviewed Assessment and Plan (1) Hydronephrosis Narrative/Plan: The source of the patient's bilateral hydronephrosis is not clear. This is new compared with a computed tomography scan done in 12/2015. Stenosis at the junction between the ileal conduit and ureters can cause hydronephrosis but this is usually a slowly progressive problem and it would be unusual for it to develop this long after his radical cystectomy. The ureters are at risk for developing urothelial cancer which could be the source of the ureteral obstruction and gross hematuria. Urine cytology and ileal conduit loopogram are recommended for further evaluation. Current Visit: No Status: Acute Code(s): N13.30 - UNSPECIFIED HYDRONEPHROSIS SNOMED Code(s): 36782994 Time with Patient: Greater than 30
[2018-06-18 16:14] LABS: Anisocytosis Slight; HCT 21.3 % (39.0-53.0); Hypochromasia Marked; MCH 29.6 pg (25.0-35.0); MCHC 32.3 g/dL (31.0-37.0); MCV 91.8 fL (80.0-100.0); Mean Platelet Volume 10.7; Platelet Count 103 k/uL (150-450); Poikilocytosis Slight; RBC 2.32 m/uL (4.30-5.90)
[2018-06-18 16:17] LABS: HGB 6.9 gm/dL (13.0-17.5)
[2018-06-18] MEDS: FUROSEMIDE 10 MG/ML 10 ML VIAL IV SCH (18:03)
[2018-06-18] MEDS: CALCIUM ACETATE 667 MG CAP PO SCH (18:03)
[2018-06-18] MEDS: SODIUM BICARBONATE TAB 650 MG TAB PO SCH ×2 (18:43→21:52)
[2018-06-19] MEDS: IPRATROPIUM-ALBUTEROL 3 ML NEB INHALATION PRN ×5 (04:25→20:25)
[2018-06-19 04:37] LABS: Anisocytosis Slight; Basophils % (A) 0 %; Eosinophils # (A) 0.1 k/uL (0-0.7); Eosinophils % (A) 1 %; HCT 22.1 % (39.0-53.0); Hypochromasia Marked; Lymphocytes # (A) 0.9 k/uL (1.0-4.8); Lymphocytes % (A) 14 %; MCH 29.3 pg (25.0-35.0); MCHC 30.6 g/dL (31.0-37.0); MCV 95.7 fL (80.0-100.0); Macrocytosis Slight; Mean Platelet Volume 9.9; Monocytes % (A) 16 %; Neutrophils # (A) 4.2 k/uL (1.3-7.7); Neutrophils % (A) 65 %; Platelet Count 114 k/uL (150-450); Poikilocytosis Slight; RBC 2.31 m/uL (4.30-5.90); RDW 18.2 % (11.5-15.5); WBC 6.4 k/uL (3.8-10.6)
[2018-06-19 04:55] LABS: HGB 6.8 gm/dL (13.0-17.5)
[2018-06-19 05:10] LABS: Calcium 9.3 mg/dL (8.4-10.2); Magnesium 1.9 mg/dL (1.6-2.3); Phosphorus 5.8 mg/dL (2.5-4.5)
[2018-06-19] MEDS: FUROSEMIDE 10 MG/ML 10 ML VIAL IV SCH ×2 (05:43→17:58)
--- NOTE | 2018-06-19 08:17 | P.PN ---
Subjective Patient is seen in follow-up for acute kidney injury. Creatinine was 4.05 on admission and is 3.78 today. His hemoglobin was 6.8 this morning. INR is down to 2.9. Patient has history of systolic CHF with ejection fraction of 25-30% with moderate mitral and tricuspid regurgitation. Chest x-ray suggestive of fluid overload. He is nonoliguric. Denies any melena or hematochezia. Urine is clear. No hematemesis. Oral intake is good. Vital signs are stable. General: The patient appeared well nourished and normally developed. HEENT: Head exam is unremarkable. Neck is without jugular venous distension. LUNGS: Lungs are clear to auscultation and percussion. Breath sounds decreased. HEART: Rate and Rhythm are regular. First and second heart sounds normal. No murmurs, rubs or gallops. ABDOMEN: Abdominal exam reveals normal bowel sounds. Non-tender and non- distended. No evidence of peritonitis. EXTREMITITES: No clubbing, cyanosis, or edema. Objective - Vital Signs Vital signs: Vital Signs Temp 97.7 F 06/19/18 04:00 Pulse 98 06/19/18 07:31 Resp 23 06/19/18 07:00 BP 109/53 06/19/18 07:00 Pulse Ox 98 06/19/18 07:00 Intake & Output 06/18/18 06/19/18 06/19/18 18:59 06:59 18:59 Intake Total 1080 515 25 Output Total 1315 1335 300 Balance -235 -820 -275 Weight 103 kg Intake: IV 350 275 25 Magnesium Sulfate-D5w Pmx 100 1 gm In Dextrose/Water 1 100ml.bag @ 100 mls/hr IVPB ONCE ONE Rx#: [id number] Sodium Chloride 0.9% 1, 250 275 25 000 ml @ 25 mls/hr IV . Q24H [facility] Rx#:[id number] Oral 420 240 Blood Product 310 Rc As-1 Unit 310 [id number] Output: Urine 1315 1335 300 - Labs CBC & Chem 7: 06/19/18 04:24 06/19/18 04:24 Labs: Abnormal Lab Results - Last 24 Hours (Table) 06/16/18 06/18/18 06/19/18 Range/Units 13:30 15:57 04:24 RBC 2.32 L 2.31 L (4.30-5.90) m/uL Hgb 6.9 L* 6.8 L* (13.0-17.5) gm/dL Hct 21.3 L 22.1 L (39.0-53.0) % MCHC 30.6 L (31.0-37.0) g/dL RDW 18.0 H 18.2 H (11.5-15.5) % Plt Count 103 L 114 L (150-450) k/uL Lymphocytes # 0.9 L (1.0-4.8) k/uL BUN (9-20) mg/dL Creatinine (0.66-1.25) mg/dL Glucose (74-99) mg/dL Phosphorus (2.5-4.5) mg/dL Crossmatch See Detail 06/19/18 Range/Units 04:24 RBC (4.30-5.90) m/uL Hgb (13.0-17.5) gm/dL Hct (39.0-53.0) % MCHC (31.0-37.0) g/dL RDW (11.5-15.5) % Plt Count (150-450) k/uL Lymphocytes # (1.0-4.8) k/uL BUN 78 H (9-20) mg/dL Creatinine 3.78 H (0.66-1.25) mg/dL Glucose 102 H (74-99) mg/dL Phosphorus 5.8 H (2.5-4.5) mg/dL Crossmatch Assessment and Plan Plan: Assessment: 1. Nonoliguric acute kidney injury secondary to ATN secondary to acute anemia. Creatinine 4.05 on admission and is down to 3.78 today. Creatinine was 1.2 in April 2018. Patient is noted to have moderate bilateral hydronephrosis. 2. Metabolic acidosis secondary to acute kidney injury. Improved. 3. Hyperphosphatemia secondary to acute kidney injury maintained on PhosLo. 4. Acute blood loss anemia secondary to Coumadin toxicity status post 4 units blood transfusion. GI following. The patient has a history of duodenal ulcer. Patient also received a dose of IV DDAVP on June 17. 5. Systolic CHF with ejection fraction of 25-30% with moderate mitral and tricuspid regurgitation. 6. Hypomagnesemia from GI losses. Improved post replacement. 7. Fluid overload. Plan: Maintain Lasix 60 mg IV twice daily. 1 unit of blood transfusion today. Continue to monitor renal function and urine output. Maintain Aranesp. Avoid nephrotoxins. Maintain oral sodium bicarbonate.
[2018-06-19] MEDS: PANTOPRAZOLE 40 MG TABLET PO SCH (08:18)
[2018-06-19] MEDS: CALCIUM ACETATE 667 MG CAP PO SCH ×3 (08:18→20:48)
[2018-06-19] MEDS: FERROUS SULFATE 325 MG TAB PO SCH ×3 (08:18→21:12)
[2018-06-19] MEDS: SODIUM BICARBONATE TAB 650 MG TAB PO SCH ×2 (08:20→21:11)
[2018-06-19] MEDS: ISOSORBIDE MONONITRATE ER 30 MG TAB.ER.24H PO SCH (08:20)
[2018-06-19] MEDS: SPIRONOLACTONE 25 MG TAB PO SCH (08:20)
[2018-06-19] MEDS: METOPROLOL TARTRATE 25 MG TAB PO SCH ×2 (08:20→20:48)
[2018-06-19 09:53] LABS: INR 1.6 (<1.2); Prothrombin Time 14.4 sec (9.0-12.0)
--- NOTE | 2018-06-19 09:56 | P.PN ---
Subjective Progress Note Date: 06/19/18 Principal diagnosis: Acute on chronic GI bleeding, Coumadin coagulopathy, chronic hematuria This is a 77-year-old white male with history of multiple medical problems, failure to our service, patient was inpatient recently, and he was admitted last time with multiple medical problems including GI bleeding, he was discharged home to live with his daughter on 05/17/2018. His other medical problems at the time included acute kidney injury, acute tubular necrosis, low blood pressure, atrial fibrillation, alcohol induced coagulopathy, negative EGD on the last admission, aspiration pneumonia was suspected on the last admission , severe LV dysfunction with ejection fraction of 25-50%, abnormal swallow study , patient is back last night to the ER complaining of profound weakness, fatigue , blood in the urine which is a chronic problem, and black stools. Initial hemoglobin was 5.2, patient received so far the total of 3 units of packed RBCs , and follow-up hemoglobin this morning is 6.9. Patient also received 4 units of fresh frozen plasma. His INR was elevated. 8.0, repeat INR this morning is 5.7. In addition to his profound anemia, patient was noted to have acute on chronic kidney injury. His last creatinine was 1.44 on discharge almost 4 weeks ago, and now it is 4.05. Nephrology was consulted, patient may or may not require hemodialysis. He was also seen by gastroenterology final recommendation is pending. In the meantime the patient is being monitored in the ICU, we are correcting his coagulopathy, we transfused the patient, hemodynamically stable, chest x-ray showed evidence of interstitial edema, questionable bibasilar pneumonia but I believe it is mostly interstitial edema rather than pneumonia. Patient was placed on Lasix, and we will continue to monitor the patient in the ICU for now. Patient denies any headache no blurred vision no dizziness. No nausea no vomiting no abdominal pain, he does have melena, no hematemesis. He is also complaining of blood in the urine from the urostomy bag. Denies any rashes. Denies any symptoms of osteoarthritis. Patient has been taking Coumadin for many years for his history of atrial fibrillation. Patient was reevaluated today on 06/18/2018, remains in the intensive care unit, continues to have drop in his hemoglobin. Required another unit of packed RBCs today. His bleeding from urostomy has completely resolved. Has not had a bowel movement since yesterday. Hemoglobin this morning is 6.2, and it was 6.9 yesterday. Another unit of blood was ordered to be given this morning. His INR is down to 2.9 from 5.7 yesterday. It was initially above 8 on presentation. Slight improvement in renal functioning is noted BUN is 74 creatinine is down to 3.84. Chest x-ray continues to show evidence of pulmonary edema, difficult to rule out underlying infiltrate. Hence the patient will be given more Lasix today. And I would maintain him on Lasix every 12 hours. Hemodynamically, the patient remains stable. Since admission the patient had received a total of 4 units of packed RBCs including the one being transfused this morning. Reevaluated today on 06/19/2018, patient remains in the intensive care unit, has no active symptoms. His stools remained dark, but no active bleeding. His hemoglobin remained relatively stable, at 6.8 today. Patient received a total of 4 units of packed RBCs since admission. Patient denies any active symptoms. Hemodynamically stable. His last chest x-ray showed some mild congestive heart failure changes, patient received Lasix by nephrology today. Creatinine is slightly improved, 3.78 today. INR today is pending. Again the chest x-ray showed congestive heart failure which is systolic in nature, ejection fraction is 25-50% with moderate mitral and tricuspid regurgitation. Patient is already responding to the Lasix dose which was given earlier. Objective - Vital Signs Vital signs: Vital Signs Temp 97.7 F 06/19/18 04:00 Pulse 98 06/19/18 07:31 Resp 23 06/19/18 07:00 BP 109/53 06/19/18 07:00 Pulse Ox 98 06/19/18 07:00 Intake & Output 06/18/18 06/19/18 06/19/18 18:59 06:59 18:59 Intake Total 1080 515 25 Output Total 1315 1335 300 Balance -235 -820 -275 Weight 103 kg Intake: IV 350 275 25 Magnesium Sulfate-D5w Pmx 100 1 gm In Dextrose/Water 1 100ml.bag @ 100 mls/hr IVPB ONCE ONE Rx#: [id number] Sodium Chloride 0.9% 1, 250 275 25 000 ml @ 25 mls/hr IV . Q24H [facility] Rx#:[id number] Oral 420 240 Blood Product 310 Rc As-1 Unit 310 [id number] Output: Urine 1315 1335 300 - Exam Physical Exam: Revealed a 77-year-old in no distress. Head: Atraumatic, normocephalic, looks slightly pale. HEENT:[PERRLA, EOMI, neck supple, no neck masses. Moist mucous membranes. Chest: [Minimal crackles at the bases, no rhonchi, no wheezes.. Cardiac Exam: [Normal S1 and S2, no S3 gallop, no murmur.] Abdomen: [Soft, urostomy bag is intact, no bleeding noted in the urostomy bag. No rebound no guarding. Extremities: [No clubbing, no cyanosis, 1+ bipedal edema persists. Neurological Exam: Alert oriented 3, no focal deficit. Creatinine: Normal mood affect and intact mental status. Lymphatics: No lymphadenopathy. - Labs CBC & Chem 7: 06/19/18 04:24 06/19/18 04:24 Labs: Abnormal Lab Results - Last 24 Hours (Table) 06/16/18 06/18/18 06/19/18 Range/Units 13:30 15:57 04:24 RBC 2.32 L 2.31 L (4.30-5.90) m/uL Hgb 6.9 L* 6.8 L* (13.0-17.5) gm/dL Hct 21.3 L 22.1 L (39.0-53.0) % MCHC 30.6 L (31.0-37.0) g/dL RDW 18.0 H 18.2 H (11.5-15.5) % Plt Count 103 L 114 L (150-450) k/uL Lymphocytes # 0.9 L (1.0-4.8) k/uL BUN (9-20) mg/dL Creatinine (0.66-1.25) mg/dL Glucose (74-99) mg/dL Phosphorus (2.5-4.5) mg/dL Crossmatch See Detail 06/19/18 Range/Units 04:24 RBC (4.30-5.90) m/uL Hgb (13.0-17.5) gm/dL Hct (39.0-53.0) % MCHC (31.0-37.0) g/dL RDW (11.5-15.5) % Plt Count (150-450) k/uL Lymphocytes # (1.0-4.8) k/uL BUN 78 H (9-20) mg/dL Creatinine 3.78 H (0.66-1.25) mg/dL Glucose 102 H (74-99) mg/dL Phosphorus 5.8 H (2.5-4.5) mg/dL Crossmatch Assessment and Plan Assessment: Impression: 1 acute on chronic GI bleeding, most likely secondary to Coumadin induced coagulopathy. Hemoglobin today is 6.8, no active bleeding is noted, stools remain dark, patient remains on Protonix. And his hematuria has resolved. 2 previous history of alcoholism, resolved 3 acute blood loss, GI bleeding and hematuria, improving clinically without any specific intervention except correcting his coagulopathy. 4 acute Coumadin toxicity, INR is pending today to 5 acute on chronic kidney injury, likely cardiorenal with LV dysfunction. Ejection fraction of 20-30% at best. 6 chronic atrial fibrillation, on Coumadin. May have to consider no anticoagulations therapy on this patient because of his recurrent GI bleeding and profound anemia intermittently. 7 severe LV dysfunction and chronic systolic congestive heart failure remains on Lasix.. Recommendation: Continue present supportive care measures, continue diuretics, continue to monitor hemoglobin and hematocrit. Address coagulopathy, will transfer out of the ICU to a monitor bed on selective today. Prognosis remains relatively guarded. We'll continue to follow. Time with Patient: Less than 30
--- NOTE | 2018-06-19 12:01 | PN ---
PROGRESS NOTE DATE OF SERVICE: 06/19/2018 The patient is a 77-year-old pleasant white male admitted to the hospital with severe symptomatic anemia and acute GI bleed. He was having dark colored stools at the time of admission to the hospital and was noted to have a hemoglobin of 5.2, and required a total of 4 units of blood transfusion since this hospitalization. He was also noted to have Coumadin coagulopathy with an INR of 8, which has been reversed with vitamin K and fresh frozen plasma. Today the INR is 1.6. He has history of bladder cancer for which he underwent ileal conduit and had hematuria also and Dr. Neal has seen him on consultation. He had a similar presentation in April of 2018, had an upper endoscopy done by Dr. Su and was noted to have small duodenal ulcers and esophagitis. He was scheduled for a colonoscopy on outpatient basis, but canceled the procedure because of issues with the prep. During this hospitalization, colonoscopy was discussed, but patient refused to have it done. In the meantime, he is doing better. No more bleeding. No nausea, vomiting. No abdominal pain. Hematuria has resolved. PHYSICAL EXAMINATION: On physical examination, he appears comfortable, no apparent distress. Vital signs are stable. Blood pressure is 113/70, pulse rate 101, temperature 98. HEENT EXAMINATION: Unremarkable. Conjunctivae pink. Sclerae anicteric. Oral cavity no lesions. NECK: No JVD or lymph node enlargement. Chest was clear to auscultation. HEART: Regular rate and rhythm. ABDOMEN: Soft. Bowel sounds are positive. Ileal conduit in the right lower quadrant had clear urine. EXTREMITIES: No pedal edema. NEURO: Alert and oriented x3. No focal deficits. LABS: Labs from today: WBC 6.4, hemoglobin 6.8, platelets 114. INR 1.6. BUN is 78 and creatinine is 3.78. IMPRESSION: 1. Severe symptomatic anemia and hemoglobin of 5.2 at presentation to the hospital 3 days ago, status post total of 4 units of blood transfusion. Upper endoscopy a month ago by Dr. Su showed small superficial gastric ulcers and esophagitis. Presently on Protonix 40 mg daily. He had black tarry stools at the time of admission to the hospital including yesterday but presently resolved. The patient is still refusing a colonoscopy at this time. 2. Hematuria in this patient with history of bladder cancer diagnosed 12 years ago, status post ileal conduit. Presently, the hematuria has resolved. Dr. Neal following the patient closely. RECOMMENDATIONS: I once again had a discussion with the patient regarding possible endoscopic intervention with a colonoscopy during this hospitalization. He continues to refuse, but he would like to think about it and let me know tomorrow. In the meantime, we will follow his hemoglobin on a daily basis and transfuse as needed. Continue with Protonix 40 mg daily. Thank you for this consultation. MMODL / IJN: [id number] /
[2018-06-19] MEDS: SODIUM CHLORIDE 0.9% 1,000 ML IV SCH (12:27)
--- NOTE | 2018-06-19 12:44 | PN ---
PROGRESS NOTE DATE OF SERVICE: 06/19/2018. CHIEF COMPLAINT: GI bleeding and blood loss anemia. HISTORY OF PRESENT ILLNESS: This gentleman continues to struggle. He feels fairly good, but states he is short of breath. Hemoglobin is still unstable at 6.8. BUN 78 with a creatinine of 2.78. PHYSICAL EXAM: He is awake and alert. Cardiac rhythm is atrial fibrillation. Chest demonstrates some wheezing and occasional rales. Abdomen is soft and nontender. IMPRESSION: 1. Gastrointestinal bleed. 2. Hypovolemic shock. 3. Blood loss anemia. 4. Atrial fibrillation. 5. Renal failure. PLAN: Continue with transfusions as necessary and rehydration while watching renal function. MMODL / IJN: [id number] /
[2018-06-19 22:18] LABS: RBC 2.31 m/uL (4.30-5.90); WBC 4.7 k/uL (3.8-10.6)
[2018-06-19 22:19] LABS: Anisocytosis Slight; Basophils % (A) 0 %; Eosinophils # (A) 0.1 k/uL (0-0.7); Eosinophils % (A) 2 %; HCT 21.3 % (39.0-53.0); Hypochromasia Marked; Lymphocytes # (A) 0.7 k/uL (1.0-4.8); Lymphocytes % (A) 15 %; MCH 29.4 pg (25.0-35.0); MCHC 31.8 g/dL (31.0-37.0); MCV 92.5 fL (80.0-100.0); Mean Platelet Volume 10.1; Monocytes # (A) 0.7 k/uL (0-1.0); Monocytes % (A) 15 %; Neutrophils # (A) 3.1 k/uL (1.3-7.7); Neutrophils % (A) 66 %; Platelet Count 104 k/uL (150-450); Poikilocytosis Slight; RDW 17.9 % (11.5-15.5)
[2018-06-19 22:21] LABS: Calcium 9.4 mg/dL (8.4-10.2); HGB 6.8 gm/dL (13.0-17.5); Potassium 5.1 mmol/L (3.5-5.1)
[2018-06-20] MEDS: PANTOPRAZOLE 40 MG TABLET PO SCH (06:49)
[2018-06-20] MEDS: FUROSEMIDE 10 MG/ML 10 ML VIAL IV SCH ×2 (06:49→18:41)
[2018-06-20] MEDS: CALCIUM ACETATE 667 MG CAP PO SCH ×3 (06:49→16:26)
[2018-06-20 06:56] LABS: Anisocytosis Slight; Basophils % (A) 0 %; Eosinophils # (A) 0.1 k/uL (0-0.7); Eosinophils % (A) 1 %; HCT 22.6 % (39.0-53.0); Hypochromasia Marked; Lymphocytes # (A) 0.8 k/uL (1.0-4.8); Lymphocytes % (A) 15 %; MCHC 30.7 g/dL (31.0-37.0); MCV 94.3 fL (80.0-100.0); Macrocytosis Slight; Mean Platelet Volume 9.8; Monocytes # (A) 0.7 k/uL (0-1.0); Monocytes % (A) 14 %; Neutrophils # (A) 3.5 k/uL (1.3-7.7); Neutrophils % (A) 67 %; Platelet Count 115 k/uL (150-450); Poikilocytosis Slight; WBC 5.2 k/uL (3.8-10.6)
[2018-06-20 07:10] LABS: Calcium 9.3 mg/dL (8.4-10.2); Magnesium 1.9 mg/dL (1.6-2.3); Phosphorus 4.8 mg/dL (2.5-4.5); Potassium 5.1 mmol/L (3.5-5.1)
[2018-06-20] MEDS: SODIUM BICARBONATE TAB 650 MG TAB PO SCH ×2 (07:47→20:41)
[2018-06-20] MEDS: METOPROLOL TARTRATE 25 MG TAB PO SCH ×2 (07:47→20:41)
[2018-06-20] MEDS: ISOSORBIDE MONONITRATE ER 30 MG TAB.ER.24H PO SCH (07:47)
[2018-06-20] MEDS: FERROUS SULFATE 325 MG TAB PO SCH ×3 (07:47→20:42)
[2018-06-20] MEDS: SPIRONOLACTONE 25 MG TAB PO SCH (07:48)
[2018-06-20 08:13] LABS: INR 1.5 (<1.2); Prothrombin Time 13.7 sec (9.0-12.0)
[2018-06-20] MEDS: IPRATROPIUM-ALBUTEROL 3 ML NEB INHALATION PRN ×4 (08:44→20:15)
--- NOTE | 2018-06-20 09:46 | P.PN ---
Subjective Patient is seen in follow-up for acute kidney injury. Creatinine was 4.05 on admission and was down to 3.78 yesterday - 3.91 today. Hemoglobin 7.0 today. INR is down to 1.5. Patient has history of systolic CHF with ejection fraction of 25-30% with moderate mitral and tricuspid regurgitation. Chest x-ray suggestive of fluid overload. He is nonoliguric. Denies any melena or hematochezia. Urine is clear. No hematemesis. Oral intake is good. Vital signs are stable. General: The patient appeared well nourished and normally developed. HEENT: Head exam is unremarkable. Neck is without jugular venous distension. LUNGS: Lungs are clear to auscultation and percussion. Breath sounds decreased. HEART: Rate and Rhythm are regular. First and second heart sounds normal. No murmurs, rubs or gallops. ABDOMEN: Abdominal exam reveals normal bowel sounds. Non-tender and non- distended. No evidence of peritonitis. EXTREMITITES: 1+ edema. Objective - Vital Signs Vital signs: Vital Signs Temp 97.6 F 06/20/18 07:44 Pulse 90 06/20/18 08:56 Resp 17 06/20/18 08:00 BP 120/65 06/20/18 07:44 Pulse Ox 99 06/19/18 12:00 Intake & Output 06/19/18 06/20/18 06/20/18 18:59 06:59 18:59 Intake Total 725 600 20 Output Total 1950 800 Balance -1225 -200 20 Weight 100.8 kg Intake: IV 75 20 Invasive Line 1 10 Invasive Line 2 10 Sodium Chloride 0.9% 1, 75 000 ml @ 25 mls/hr IV . Q24H [facility] Rx#:[id number] Oral 650 600 Output: Urine 1950 800 Other: Voiding Method Ileal Conduit (Right) Ileal Conduit (Right) - Labs CBC & Chem 7: 06/20/18 06:45 06/20/18 06:45 Labs: Abnormal Lab Results - Last 24 Hours (Table) 06/19/18 06/19/18 06/19/18 Range/Units 05:00 21:44 21:44 RBC 2.31 L (4.30-5.90) m/uL Hgb 6.8 L* (13.0-17.5) gm/dL Hct 21.3 L (39.0-53.0) % MCHC (31.0-37.0) g/dL RDW 17.9 H (11.5-15.5) % Plt Count 104 L (150-450) k/uL Lymphocytes # 0.7 L (1.0-4.8) k/uL PT 14.4 H (9.0-12.0) sec INR 1.6 H (<1.2) Chloride (98-107) mmol/L BUN 82 H (9-20) mg/dL Creatinine 3.86 H (0.66-1.25) mg/dL Glucose 120 H (74-99) mg/dL Phosphorus (2.5-4.5) mg/dL 06/20/18 06/20/18 06/20/18 Range/Units 06:45 06:45 06:45 RBC 2.40 L (4.30-5.90) m/uL Hgb 7.0 L (13.0-17.5) gm/dL Hct 22.6 L (39.0-53.0) % MCHC 30.7 L (31.0-37.0) g/dL RDW 18.0 H (11.5-15.5) % Plt Count 115 L (150-450) k/uL Lymphocytes # 0.8 L (1.0-4.8) k/uL PT 13.7 H (9.0-12.0) sec INR 1.5 H (<1.2) Chloride 108 H (98-107) mmol/L BUN 82 H (9-20) mg/dL Creatinine 3.91 H (0.66-1.25) mg/dL Glucose (74-99) mg/dL Phosphorus 4.8 H (2.5-4.5) mg/dL Assessment and Plan Plan: Assessment: 1. Nonoliguric acute kidney injury secondary to ATN secondary to acute anemia. Creatinine 4.05 on admission and did come down to 3.78 yesterday. A little worse at 3.91 today. Creatinine was 1.2 in April 2018. Patient is noted to have moderate bilateral hydronephrosis. 2. Metabolic acidosis secondary to acute kidney injury. Improved. 3. Hyperphosphatemia secondary to acute kidney injury maintained on PhosLo. 4. Acute blood loss anemia secondary to Coumadin toxicity status post 4 units blood transfusion. GI following. The patient has a history of duodenal ulcer. Patient also received a dose of IV DDAVP on June 17. 5. Systolic CHF with ejection fraction of 25-30% with moderate mitral and tricuspid regurgitation. 6. Hypomagnesemia from GI losses. Improved post replacement. 7. Fluid overload. Plan: Maintain Lasix 60 mg IV twice daily. 1 unit of blood transfusion today. Additional 40 mg IV Lasix post blood transfusion completed. Continue to monitor renal function and urine output. Maintain Aranesp. Avoid nephrotoxins. Maintain oral sodium bicarbonate.
[2018-06-20] MEDS ORDERED: FUROSEMIDE 10 MG/ML 4 ML VIAL IV PRN (10:13)
--- NOTE | 2018-06-20 11:35 | P.PN ---
Subjective Progress Note Date: 06/20/18 Principal diagnosis: Acute on chronic GI bleeding, and Coumadin coagulopathy with hematuria. This is a 77-year-old white male with history of multiple medical problems, failure to our service, patient was inpatient recently, and he was admitted last time with multiple medical problems including GI bleeding, he was discharged home to live with his daughter on 05/17/2018. His other medical problems at the time included acute kidney injury, acute tubular necrosis, low blood pressure, atrial fibrillation, alcohol induced coagulopathy, negative EGD on the last admission, aspiration pneumonia was suspected on the last admission , severe LV dysfunction with ejection fraction of 25-50%, abnormal swallow study , patient is back last night to the ER complaining of profound weakness, fatigue , blood in the urine which is a chronic problem, and black stools. Initial hemoglobin was 5.2, patient received so far the total of 3 units of packed RBCs , and follow-up hemoglobin this morning is 6.9. Patient also received 4 units of fresh frozen plasma. His INR was elevated. 8.0, repeat INR this morning is 5.7. In addition to his profound anemia, patient was noted to have acute on chronic kidney injury. His last creatinine was 1.44 on discharge almost 4 weeks ago, and now it is 4.05. Nephrology was consulted, patient may or may not require hemodialysis. He was also seen by gastroenterology final recommendation is pending. In the meantime the patient is being monitored in the ICU, we are correcting his coagulopathy, we transfused the patient, hemodynamically stable, chest x-ray showed evidence of interstitial edema, questionable bibasilar pneumonia but I believe it is mostly interstitial edema rather than pneumonia. Patient was placed on Lasix, and we will continue to monitor the patient in the ICU for now. Patient denies any headache no blurred vision no dizziness. No nausea no vomiting no abdominal pain, he does have melena, no hematemesis. He is also complaining of blood in the urine from the urostomy bag. Denies any rashes. Denies any symptoms of osteoarthritis. Patient has been taking Coumadin for many years for his history of atrial fibrillation. Patient was reevaluated today on 06/18/2018, remains in the intensive care unit, continues to have drop in his hemoglobin. Required another unit of packed RBCs today. His bleeding from urostomy has completely resolved. Has not had a bowel movement since yesterday. Hemoglobin this morning is 6.2, and it was 6.9 yesterday. Another unit of blood was ordered to be given this morning. His INR is down to 2.9 from 5.7 yesterday. It was initially above 8 on presentation. Slight improvement in renal functioning is noted BUN is 74 creatinine is down to 3.84. Chest x-ray continues to show evidence of pulmonary edema, difficult to rule out underlying infiltrate. Hence the patient will be given more Lasix today. And I would maintain him on Lasix every 12 hours. Hemodynamically, the patient remains stable. Since admission the patient had received a total of 4 units of packed RBCs including the one being transfused this morning. Reevaluated today on 06/19/2018, patient remains in the intensive care unit, has no active symptoms. His stools remained dark, but no active bleeding. His hemoglobin remained relatively stable, at 6.8 today. Patient received a total of 4 units of packed RBCs since admission. Patient denies any active symptoms. Hemodynamically stable. His last chest x-ray showed some mild congestive heart failure changes, patient received Lasix by nephrology today. Creatinine is slightly improved, 3.78 today. INR today is pending. Again the chest x-ray showed congestive heart failure which is systolic in nature, ejection fraction is 25-50% with moderate mitral and tricuspid regurgitation. Patient is already responding to the Lasix dose which was given earlier. Reevaluated today on 06/20/2018, patient is now on a monitor bed on selective, no further episodes of active bleeding. Hemoglobin is stable, presently 7.0 patient denies any shortness of breath no cough no wheezing. No fever no chills no hemoptysis, no bloody stools. Renal functioning remains quite abnormal with a BUN of 82 creatinine of 3.91. Remains on Lasix 60 mg IV push twice a day for pulmonary edema findings on his chest x-ray on presentation, urinary output is adequate. Objective - Vital Signs Vital signs: Vital Signs Temp 97.6 F 06/20/18 07:44 Pulse 90 06/20/18 08:56 Resp 17 06/20/18 08:00 BP 120/65 06/20/18 07:44 Pulse Ox 99 06/19/18 12:00 Intake & Output 06/19/18 06/20/18 06/20/18 18:59 06:59 18:59 Intake Total 725 600 280 Output Total 1950 800 Balance -1225 -200 280 Weight 100.8 kg Intake: IV 75 20 Invasive Line 1 10 Invasive Line 2 10 Sodium Chloride 0.9% 1, 75 000 ml @ 25 mls/hr IV . Q24H [facility] Rx#:[id number] Oral 650 600 260 Output: Urine 1950 800 Other: Voiding Method Ileal Conduit (Right) Ileal Conduit (Right) - Exam Physical Exam: Revealed a 77 very pleasant, asymptomatic, comfortable. Head: Relatively unremarkable. HEENT: Neck is supple no neck masses no JVD. Chest: [Fine crackles at the bases bilaterally. Cardiac Exam: [Normal S1 and S2, no S3 gallop, no murmur.] Abdomen: [Soft, urostomy bag is intact, no bleeding noted in the urostomy bag. Extremities: [1+ edema, no cyanosis.. Neurological Exam: Alert oriented 3, no gross deficit. Creatinine: Normal mood affect and intact mental status. Lymphatics: No lymphadenopathy. - Labs CBC & Chem 7: 06/20/18 06:45 06/20/18 06:45 Labs: Abnormal Lab Results - Last 24 Hours (Table) 06/19/18 06/19/18 06/20/18 Range/Units 21:44 21:44 06:45 RBC 2.31 L 2.40 L (4.30-5.90) m/uL Hgb 6.8 L* 7.0 L (13.0-17.5) gm/dL Hct 21.3 L 22.6 L (39.0-53.0) % MCHC 30.7 L (31.0-37.0) g/dL RDW 17.9 H 18.0 H (11.5-15.5) % Plt Count 104 L 115 L (150-450) k/uL Lymphocytes # 0.7 L 0.8 L (1.0-4.8) k/uL PT (9.0-12.0) sec INR (<1.2) Chloride (98-107) mmol/L BUN 82 H (9-20) mg/dL Creatinine 3.86 H (0.66-1.25) mg/dL Glucose 120 H (74-99) mg/dL Phosphorus (2.5-4.5) mg/dL 06/20/18 06/20/18 Range/Units 06:45 06:45 RBC (4.30-5.90) m/uL Hgb (13.0-17.5) gm/dL Hct (39.0-53.0) % MCHC (31.0-37.0) g/dL RDW (11.5-15.5) % Plt Count (150-450) k/uL Lymphocytes # (1.0-4.8) k/uL PT 13.7 H (9.0-12.0) sec INR 1.5 H (<1.2) Chloride 108 H (98-107) mmol/L BUN 82 H (9-20) mg/dL Creatinine 3.91 H (0.66-1.25) mg/dL Glucose (74-99) mg/dL Phosphorus 4.8 H (2.5-4.5) mg/dL Assessment and Plan Assessment: Impression: 1 acute Coumadin coagulopathy, and acute on chronic GI bleeding. 2 acute blood loss, secondary to above. 3 acute on chronic kidney injury, likely cardiorenal with LV dysfunction. Ejection fraction of 20-30% at best. Being followed by nephrology. 4 chronic atrial fibrillation, on Coumadin. Would not recommend placing the patient on Coumadin considering his GI bleeding and hematuria. 5 severe LV dysfunction and chronic systolic congestive heart failure remains on Lasix.. Recommendation: Continue present supportive care measures, continue diuretics, continue to monitor hemoglobin and hematocrit. Sitter discharge planning in the next 24-48 hours. Time with Patient: Less than 30
[2018-06-20] MEDS ORDERED: MELATONIN 1 MG TAB PO PRN (14:26)
--- NOTE | 2018-06-20 15:42 | PN ---
PROGRESS NOTE DATE OF SERVICE: 06/20/2018 REQUESTING PHYSICIAN: Dr. De Leon. The patient is a 77-year-old white male admitted to the hospital with acute GI bleed and severe anemia with a hemoglobin of 5.6, as well as Coumadin coagulopathy. She received a total of units blood transfusion. At the time of admission to the hospital he was having black tarry stools. He had an upper endoscopy done by Dr. Su that showed superficial gastric ulcers and duodenitis. The patient was recommended to have a colonoscopy during this hospitalization, but continues to refuse. In the meantime, coagulopathy has been corrected with no further bleeding. He denies any abdominal pain. No nausea, vomiting. He also had hematuria. The patient has history of bladder CA diagnosed many years ago, underwent ileal conduit. The bleeding has resolved currently. PHYSICAL EXAMINATION: He appears comfortable. No apparent distress. VITAL SIGNS: Stable. Blood pressure is 116/61, pulse rate 98, temperature 99.7. HEENT examination unremarkable. Conjunctivae pink. Sclerae anicteric. Oral cavity no lesions. Neck: No jugular venous distention or lymph node enlargement. Chest clear to auscultation. HEART: Regular rate and rhythm. ABDOMEN: Soft. Bowel sounds are positive. No organomegaly. Extremities: No pedal edema. Skin no rashes. Neuro: He is alert and oriented x3. No focal deficits. LABS: From today WBC 5.2, platelets 115. INR 1.5. BUN is 82, creatinine 3.91. IMPRESSION: 1. Acute gastrointestinal bleed with severe anemia and hemoglobin of 5.6, status post 4 units of blood transfusion. The patient had some active gastrointestinal bleed at the time of admission to the hospital with black tarry stools. Upper endoscopy done a month ago by Dr. Su shows superficial gastric ulcers. Currently the bleeding has resolved. The patient refusing to have a colonoscopy at this time. 2. Hematuria, resolved. 3. Coagulopathy secondary to Coumadin, reversed. INR today is 1.5. RECOMMENDATIONS: Once again I had a lengthy discussion with the patient regarding the importance of having a colonoscopy to investigate the source of recent GI bleed, but he continues to refuse. At this time, we will sign off. Please call us if needed. Thank you for this consultation. MMODL / IJN: [id number] /
[2018-06-20] MEDS: SODIUM CHLORIDE 0.9% 1,000 ML IV SCH (16:24)
[2018-06-21] MEDS: FUROSEMIDE 10 MG/ML 10 ML VIAL IV SCH (06:27)
[2018-06-21] MEDS: PANTOPRAZOLE 40 MG TABLET PO SCH (06:27)
[2018-06-21] MEDS: CALCIUM ACETATE 667 MG CAP PO SCH ×3 (06:30→15:54)
[2018-06-21 06:51] LABS: Anisocytosis Slight; Basophils % (A) 0 %; Eosinophils # (A) 0.1 k/uL (0-0.7); Eosinophils % (A) 2 %; HGB 7.6 gm/dL (13.0-17.5); Hypochromasia Marked; Lymphocytes # (A) 0.8 k/uL (1.0-4.8); Lymphocytes % (A) 15 %; MCH 29.1 pg (25.0-35.0); MCHC 31.8 g/dL (31.0-37.0); MCV 91.5 fL (80.0-100.0); Mean Platelet Volume 9.7; Monocytes # (A) 0.8 k/uL (0-1.0); Monocytes % (A) 14 %; Neutrophils # (A) 3.4 k/uL (1.3-7.7); Neutrophils % (A) 66 %; Platelet Count 110 k/uL (150-450); Poikilocytosis Slight; RBC 2.62 m/uL (4.30-5.90); RDW 17.5 % (11.5-15.5); WBC 5.2 k/uL (3.8-10.6)
[2018-06-21 07:04] LABS: Calcium 9.6 mg/dL (8.4-10.2); Magnesium 1.7 mg/dL (1.6-2.3); Phosphorus 4.6 mg/dL (2.5-4.5); Potassium 4.5 mmol/L (3.5-5.1)
[2018-06-21] MEDS: SODIUM BICARBONATE TAB 650 MG TAB PO SCH ×2 (07:51→20:23)
[2018-06-21] MEDS: FERROUS SULFATE 325 MG TAB PO SCH ×3 (07:51→20:23)
[2018-06-21] MEDS: METOPROLOL TARTRATE 25 MG TAB PO SCH ×2 (07:51→20:23)
[2018-06-21] MEDS: ISOSORBIDE MONONITRATE ER 30 MG TAB.ER.24H PO SCH (07:52)
[2018-06-21] MEDS ORDERED: MAGNESIUM SULFATE-D5W PMX 1 GM in DEXTROSE/WATER 1 100ML.BAG IVPB ONE (08:08)
[2018-06-21] MEDS: FUROSEMIDE 10 MG/ML 4 ML VIAL IV SCH ×2 (08:25→20:25)
--- NOTE | 2018-06-21 08:49 | P.PN ---
Subjective Patient is seen in follow-up for acute kidney injury. Creatinine was 4.05 on admission and did come down to 3.70 this admission. It is up to 4.5 today.. Hemoglobin 7.6 today. Patient has history of systolic CHF with ejection fraction of 25-30% with moderate mitral and tricuspid regurgitation. Chest x- ray suggestive of fluid overload. He is nonoliguric. Denies any melena or hematochezia. Urine is clear. No hematemesis. Oral intake is good. Vital signs are stable. General: The patient appeared well nourished and normally developed. HEENT: Head exam is unremarkable. Neck is without jugular venous distension. LUNGS: Lungs are clear to auscultation and percussion. Breath sounds decreased. HEART: Rate and Rhythm are regular. First and second heart sounds normal. No murmurs, rubs or gallops. ABDOMEN: Abdominal exam reveals normal bowel sounds. Non-tender and non- distended. No evidence of peritonitis. EXTREMITITES: 1+ edema. Objective - Vital Signs Vital signs: Vital Signs Temp 97.7 F 06/21/18 07:41 Pulse 98 06/21/18 08:00 Resp 18 06/21/18 08:00 BP 124/77 06/21/18 07:41 Pulse Ox 91 L 06/21/18 07:41 Intake & Output 06/20/18 06/21/18 06/21/18 18:59 06:59 18:59 Intake Total 1195 20 510 Output Total 2150 1200 1000 Balance -955 -1180 -490 Weight 99.3 kg Intake: IV 105 20 10 Invasive Line 1 20 20 Invasive Line 2 10 Invasive Line 3 10 Sodium Chloride 0.9% 1, 75 000 ml @ 25 mls/hr IV . Q24H [facility] Rx#:[id number] Oral 780 500 Blood Product 310 Rc As-1 Unit 310 [id number] Output: Urine 2150 1200 1000 Other: Voiding Method Ileal Conduit (Right) Ileal Conduit (Right) Ileal Conduit ( Right) - Labs CBC & Chem 7: 06/21/18 06:16 06/21/18 06:16 Labs: Abnormal Lab Results - Last 24 Hours (Table) 06/20/18 06/21/18 06/21/18 Range/Units 10:51 06:16 06:16 RBC 2.62 L (4.30-5.90) m/uL Hgb 7.6 L (13.0-17.5) gm/dL Hct 24.0 L (39.0-53.0) % RDW 17.5 H (11.5-15.5) % Plt Count 110 L (150-450) k/uL Lymphocytes # 0.8 L (1.0-4.8) k/uL BUN 79 H (9-20) mg/dL Creatinine 4.25 H (0.66-1.25) mg/dL Phosphorus 4.6 H (2.5-4.5) mg/dL Crossmatch See Detail Assessment and Plan Plan: Assessment: 1. Nonoliguric acute kidney injury secondary to ATN secondary to acute anemia. Creatinine 4.05 on admission and did come down to 3.78 this admission - 4.25 today, which is due to diuresis. Creatinine was 1.2 in April 2018. Patient is noted to have moderate bilateral hydronephrosis which is also likely contributing to his renal failure. 2. Metabolic acidosis secondary to acute kidney injury. Improved. 3. Hyperphosphatemia secondary to acute kidney injury maintained on PhosLo. 4. Acute blood loss anemia secondary to Coumadin toxicity status post 4 units blood transfusion. GI following. The patient has a history of duodenal ulcer. Patient also received a dose of IV DDAVP on June 17. 5. Systolic CHF with ejection fraction of 25-30% with moderate mitral and tricuspid regurgitation. 6. Hypomagnesemia from GI losses. Improved post replacement. 7. Fluid overload. Plan: I will decrease Lasix to 40 mg IV twice daily. Continue to monitor renal function and urine output. Maintain Aranesp. Avoid nephrotoxins. Maintain oral sodium bicarbonate. Loopogram today. Patient now agreeable to proceed with colonoscopy.
--- NOTE | 2018-06-21 10:19 | FL ---
EXAMINATION TYPE: FL loopogram DATE OF EXAM: 06/21/2018 COMPARISON: NONE HISTORY: Bilateral hydronephrosis TECHNIQUE: Fluoroscopy. FINDINGS: Fluoroscopy of 2.39 minute utilized. 2 images are submitted. Popliteal review demonstrates hypertrophic change of the spine with arthropathy of the hips and posts urgical changes. Bowel gas pattern nonspecific. Study somewhat limited as contrast was difficult to pass into the small bowel. There is dilation bila terally ureter to the level of the anastomosis. IMPRESSION: Bilateral hydroureter to the level of the anastomosis.
--- NOTE | 2018-06-21 11:10 | P.PN ---
Subjective Progress Note Date: 06/21/18 Principal diagnosis: Anemia, history of duodenal ulcer No further bleeding per ostomy. No abdominal pain reported. Tolerating diet. Objective - Vital Signs Vital signs: Vital Signs Temp 97.7 F 06/21/18 07:41 Pulse 98 06/21/18 08:00 Resp 18 06/21/18 08:00 BP 124/77 06/21/18 07:41 Pulse Ox 91 L 06/21/18 07:41 Intake & Output 06/20/18 06/21/18 06/21/18 18:59 06:59 18:59 Intake Total 1195 20 510 Output Total 2150 1200 1000 Balance -100 -1429 -525 Weight 99.3 kg Intake: IV 105 20 10 Invasive Line 1 20 20 Invasive Line 2 10 Invasive Line 3 10 Sodium Chloride 0.9% 1, 75 000 ml @ 25 mls/hr IV . Q24H [facility] Rx#:[id number] Oral 780 500 Blood Product 310 Rc As-1 Unit 310 [id number] Output: Urine 2150 1200 1000 Other: Voiding Method Ileal Conduit (Right) Ileal Conduit (Right) Ileal Conduit ( Right) - Exam Constitutional: Lying in bed in no apparent distress Head: normocephalic/atraumatic Eyes: No icterus, no injection Mouth: Moist mucous membranes Nose: No discharge noted Neck: Trachea midline Lungs: Normal air entry in all lung malloy, no wheezing appreciated Abdomen: Soft, nontender, nondistended, normal bowel sounds. No guarding or rigidity. Patient has urostomy with output of yellow urine. Skin: No rashes, no jaundice Neuro: Awake alert and oriented 3, no focal deficits - Labs CBC & Chem 7: 06/21/18 06:16 06/21/18 06:16 Labs: Abnormal Lab Results - Last 24 Hours (Table) 06/20/18 06/21/18 06/21/18 Range/Units 10:51 06:16 06:16 RBC 2.62 L (4.30-5.90) m/uL Hgb 7.6 L (13.0-17.5) gm/dL Hct 24.0 L (39.0-53.0) % RDW 17.5 H (11.5-15.5) % Plt Count 110 L (150-450) k/uL Lymphocytes # 0.8 L (1.0-4.8) k/uL BUN 79 H (9-20) mg/dL Creatinine 4.25 H (0.66-1.25) mg/dL Phosphorus 4.6 H (2.5-4.5) mg/dL Crossmatch See Detail Assessment and Plan (1) Acute blood loss anemia Narrative/Plan: Suspect secondary to hematuria with red blood in urostomy on presentation. Currently no further bleeding has occurred. He reports undergoing an exam of the neobladder with the urology service. Current Visit: Yes Status: Acute Code(s): D62 - ACUTE POSTHEMORRHAGIC ANEMIA SNOMED Code(s): 952096808 (2) Anemia Narrative/Plan: Anemia of acute blood loss in the setting of prior findings of duodenal ulcer on EGD last month and blood in urostomy on this presentation, likely exacerbated by coagulopathy. Current Visit: Yes Status: Acute Code(s): D64.9 - ANEMIA, UNSPECIFIED SNOMED Code(s): 654587850 (3) History of duodenal ulcer Narrative/Plan: Seen on EGD last month. Current Visit: Yes Status: Acute Code(s): Z87.19 - PERSONAL HISTORY OF OTHER DISEASES OF THE DIGESTIVE SYSTEM SNOMED Code(s): 787064736 (4) Warfarin-induced coagulopathy Current Visit: No Status: Acute Code(s): D68.32 - HEMORRHAGIC DISORD D/T EXTRINSIC CIRCULATING ANTICOAGULANTS; T45.515A - ADVERSE EFFECT OF ANTICOAGULANTS, INITIAL ENCOUNTER SNOMED Code(s): 47384576 Plan: Supportive care Clear liquid diet Nothing by mouth after midnight Bowel prep Plan for colonoscopy in the morning Continue to monitor hemoglobin and hematocrit and transfuse as needed, and monitor INR Appreciate recommendations from urology Thank you for allowing us to participate in the care of this patient we will continue to follow
[2018-06-21] MEDS: MAGNESIUM SULFATE-D5W PMX 1 GM in DEXTROSE/WATER 1 100ML.BAG IVPB SCH ×2 (11:24→13:03)
[2018-06-21] MEDS: SPIRONOLACTONE 25 MG TAB PO SCH (11:28)
[2018-06-21] MEDS: IPRATROPIUM-ALBUTEROL 3 ML NEB INHALATION PRN ×2 (11:31→21:41)
[2018-06-21 11:58] LABS: INR 1.5 (<1.2); Prothrombin Time 13.6 sec (9.0-12.0)
--- NOTE | 2018-06-21 13:40 | P.PN ---
Subjective Progress Note Date: 06/21/18 Principal diagnosis: GI bleed, anemia Progress note dated 06/21/2018 77-year-old male with a history of GI bleed. The patient's required 5 units of packed red blood cells on this admission. The patient was admitted with a diagnosis of Coumadin induced coagulopathy and chronic GI bleed. The source of the bleeding is unknown. He was found on previous admission to have a couple of ulcers but apparently there was no stigmata of active bleeding. It appears, that the Coumadin is currently responsible for some of the bleeding. In addition, the patient has a history of chronic kidney injury as well as LV dysfunction atrial fibrillation for which the patient's on Coumadin and congestive heart failure, systolic in nature. The patient's ejection fraction is at best 20-30%. Currently resting relatively comfortably. Getting a breathing treatment as we speak. His daughters in the room. They're getting a little frustrated because he had a similar episode just recently in the hospital. The patient is scheduled for a colonoscopy tomorrow. Daughter seems a little frustrated. The patient's overall color is poor. Somewhat pale. Objective - Vital Signs Vital signs: Vital Signs Temp 97.0 F L 06/21/18 11:20 Pulse 86 06/21/18 11:41 Resp 18 06/21/18 11:20 BP 127/75 06/21/18 11:20 Pulse Ox 94 L 06/21/18 11:20 Intake & Output 06/20/18 06/21/18 06/21/18 18:59 06:59 18:59 Intake Total 1195 20 510 Output Total 2150 1200 1000 Balance -955 -1180 -490 Weight 99.3 kg Intake: IV 105 20 10 Invasive Line 1 20 20 Invasive Line 2 10 Invasive Line 3 10 Sodium Chloride 0.9% 1, 75 000 ml @ 25 mls/hr IV . Q24H [facility] Rx#:[id number] Oral 780 500 Blood Product 310 Rc As-1 Unit 310 [id number] Output: Urine 2150 1200 1000 Other: Voiding Method Ileal Conduit (Right) Ileal Conduit (Right) Ileal Conduit ( Right) - Exam No acute distress, oriented 3. The patient's overall color is pale. HEENT examination is grossly unremarkable. Mucous membranes are moist. No oral lesions. Neck supple. Full range of motion. No adenopathy thyromegaly or neck vein distention. Cardiovascular examination reveals irregular rhythm and rate. S1-S2 normal. No S3 or S4. No discernible murmur noted. Lungs reveal clear breath sounds. Her sounds are equal bilaterally. No adventitious lung sounds including wheezes rhonchi or crackles. Abdomen soft bowel sounds are heard. No masses or tenderness. Extremities are intact. No cyanosis clubbing or edema. Skin is without rash or lesion. Skin is pale. Neurologic examination is brief but nonfocal. - Labs CBC & Chem 7: 06/21/18 06:16 06/21/18 06:16 Labs: Abnormal Lab Results - Last 24 Hours (Table) 06/20/18 06/21/18 06/21/18 Range/Units 10:51 06:16 06:16 RBC 2.62 L (4.30-5.90) m/uL Hgb 7.6 L (13.0-17.5) gm/dL Hct 24.0 L (39.0-53.0) % RDW 17.5 H (11.5-15.5) % Plt Count 110 L (150-450) k/uL Lymphocytes # 0.8 L (1.0-4.8) k/uL PT (9.0-12.0) sec INR (<1.2) BUN 79 H (9-20) mg/dL Creatinine 4.25 H (0.66-1.25) mg/dL Phosphorus 4.6 H (2.5-4.5) mg/dL Crossmatch See Detail 06/21/18 Range/Units 10:50 RBC (4.30-5.90) m/uL Hgb (13.0-17.5) gm/dL Hct (39.0-53.0) % RDW (11.5-15.5) % Plt Count (150-450) k/uL Lymphocytes # (1.0-4.8) k/uL PT 13.6 H (9.0-12.0) sec INR 1.5 H (<1.2) BUN (9-20) mg/dL Creatinine (0.66-1.25) mg/dL Phosphorus (2.5-4.5) mg/dL Crossmatch Assessment and Plan Assessment: Acute on chronic gastrointestinal bleeding, of unclear etiology Coumadin induced coagulopathy, in part, triggering the bleeding Acute blood loss anemia Acute on chronic kidney injury Cardiomyopathy, severe, with an ejection fraction of 20-30% History of chronic atrial fibrillation Recent episode of GI bleed Severe LV dysfunction and chronic systolic heart failure Status post 5 units of PRBCs on this admission Plan: Plan dated 06/21/2018 We will continue to follow this patient. The patient is scheduled for colonoscopy tomorrow. No additional bleeding at this time. The patient in the patient's family frustrated. We will continue to follow closely. The patient should not go back on Coumadin at this time. White count 5.0, hemoglobin 7.6, hematocrit 24.0 and platelet count 110,000. PT 13.6 with an INR 1.5. Sodium potassium chloride CO2 and anion gap are normal. BUN is 79 and creatinine is 4.5 Time with Patient: Less than 30
--- NOTE | 2018-06-21 14:20 | CDI ---
Last Revision, August 2017 Documentation Clarification Form Date: 06/21/18 From: Ciarra Nj RN Admit Date: 06/16/2018 5:05:00 PM Patient Name: Baudilio Putnam Visit Number: [id number] ATTENTION: The Clinical Documentation Specialists (CDI) and [facility] Coding Staff appreciate your assistance in clarifying documentation. Please respond to the clarification below the line at the bottom and electronically sign. The CDI & [facility] Coding staff will review the response and follow-up if needed. Please note: Queries are made part of the Legal Health Record. If you have any questions, please contact the author of this message via ITS. Dr. Noah Karimi, DO, Can you please render your opinion on the following documentation? Pt admitted with Gi bleed, Anemia, ARF History/Risk Factors: A Fib, bladder and prostate cancer (urostomy), hemorrhoids , OR, x smoker Clinical Indicators: On admission: BUN 74, CR 4.05, GFR 14: ON 06/21 : BUN 79, CR. 4.25, GFR 13 Renal failure is charted in the PN and consults from 06/16 - 06/21 PN 06/18 states Kidney failure. Consult 06/17: Kidney failure Treatment: Patients medications include: sodium bicarbonate, vitamin k IVF .9 @ 25ml/hr monitor labs In order to capture the severity of condition, please clarify if the condition signifies: CKD Stage 4 (GFR 15-29) CKD Stage 5 (GFR <15) ESRD Other, please specify Unable to determine MTDD
[2018-06-21] MEDS: SODIUM CHLORIDE 0.9% 1,000 ML IV SCH (15:54)
--- NOTE | 2018-06-21 15:56 | P.CRDCN ---
History of Present Illness Consult date: 06/21/18 Requesting physician: Baudilio De Leon Reason for Consult (text): Nonsustained V. tach Chief complaint: Bleeding from urostomy, weakness and fatigue History of present illness: This is a 77-year-old gentleman who was recently in the hospital, at that time was having multiple mat medical issues including GI bleed, patient also had acute kidney injury, acute tubular necrosis, hypotension, chronic persistent atrial fibrillation, alcohol-induced coagulopathy, negative EGD on this last admission, severe LV dysfunction with documented ejection fraction of 25-30%, abnormal swallow evaluation, he presented back to the hospital with symptoms of weakness and fatigue with blood in his urine which is a chronic problem, he was also noted to have black stools. Hemoglobin on admission was documented to be 5.2, patient received a total of 3 units of packed red blood cells, patient also received fresh frozen plasma because of an elevated INR on admission. In addition to his profound anemia, patient was noted to have acute on chronic kidney injury. Nephrology was consulted. Patient has been in the hospital for the past 5 days, cardiology was requested to see the patient today because of a run of nonsustained ventricular tachycardia. Lab data from today, hemoglobin 7.6, platelet count 110, INR 1.5, sodium 138, potassium 4.5, BUN 79, creatinine 4.2. 80s him is 1.7. Patient is currently on metoprolol 75 mg one tablet by mouth twice a day which we will continue. Patient was seen and examined today, currently resting comfortably in bed, patient is scheduled to undergo colonoscopy tomorrow, underwent an ileal loopogram today, results are yet pending. Past Medical History Past Medical History: Atrial Fibrillation, Cancer, Myocardial Infarction (MT) Additional Past Medical History / Comment(s): bladder ca, prostate ca had sx( urostomy) and 1 round of chemo in , afib, [place], hemorhoids, pt stated he was told by a dr that he had an enlarged heart, [place] Last Myocardial Infarction Date:: 2002 History of Any Multi-Drug Resistant Organisms: None Reported Past Surgical History: Adenoidectomy, Tonsillectomy Additional Past Surgical History / Comment(s): 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 Past Anesthesia/Blood Transfusion Reactions: No Reported Reaction Past Psychological History: No Psychological Hx Reported Additional Psychological History / Comment(s): pt lives alone in own home. used to work at [employer], no service. Smoking Status: Current every day smoker Past Alcohol Use History: Daily Additional Past Alcohol Use History / Comment(s): started smoking at age 15 or 16, smoked 1 ppd but quit 7 days ago. drinks 3 beer per day,denies drug use per daughter. Past Drug Use History: None Reported - Past Family History Father Family Medical History: No Reported History Mother Family Medical History: No Reported History Medications and Allergies Home Medications Medication Instructions Recorded Confirmed Type Isosorbide Mononitrate [Isosorbide 30 mg PO DAILY 01/02/16 06/16/18 History Mononitrate ER] Furosemide [Lasix] 40 mg PO DAILY #30 tab 01/08/16 06/16/18 Rx Lisinopril [Zestril] 2.5 mg PO DAILY #30 tab 01/08/16 06/16/18 Rx Metoprolol Tartrate [Lopressor] 75 mg PO BID 05/04/18 06/16/18 History Ipratropium-Albuterol Nebulize 3 ml INHALATION RT-Q12H PRN #60 05/21/18 Rx [Duoneb 0.5 mg-3 mg/3 ml Soln] ampul.neb Ferrous Sulfate [Feosol] 325 mg PO TID 06/16/18 06/16/18 History Omeprazole 20 mg PO BID 06/16/18 06/16/18 History Spironolactone [Aldactone] 25 mg PO DAILY 06/16/18 06/16/18 History Warfarin [Coumadin] 5 mg PO DAILY 06/16/18 06/16/18 History Allergies Allergy/AdvReac Type Severity Reaction Status Date / Time No Known Allergies Allergy Verified 06/16/18 12:32 Physical Exam Vitals: Vital Signs Temp Pulse Pulse Resp BP BP Pulse Ox 06/21/18 15:36 97.0 F L 80 17 146/74 95 06/21/18 11:41 86 06/21/18 11:31 84 06/21/18 11:20 97.0 F L 84 18 127/75 94 L 06/21/18 08:00 98 18 06/21/18 07:41 97.7 F 98 18 124/77 91 L 06/21/18 03:31 89 17 06/21/18 03:28 98 F 89 17 121/70 92 L 06/20/18 23:46 81 17 06/20/18 23:41 98.2 F 81 17 117/75 94 L 06/20/18 20:28 102 H 06/20/18 20:16 98 06/20/18 20:00 97.1 F L 100 18 124/75 93 L 06/20/18 16:20 97.4 F L 88 88 17 133/80 133/80 94 L 06/20/18 15:48 92 Intake and Output 06/21/18 06/21/18 06/21/18 06:59 14:59 22:59 Intake Total 10 510 Output Total 1200 1000 Balance -1190 -490 Intake: IV 10 10 Invasive Line 1 10 Invasive Line 3 10 Oral 500 Output: Urine 1200 1000 Other: Voiding Method Ileal Conduit (Right) Ileal Conduit (Right) Weight 99.3 kg No acute distress, oriented 3. The patient's overall color is pale. HEENT examination is grossly unremarkable. Mucous membranes are moist. No oral lesions. Neck supple. Full range of motion. No adenopathy thyromegaly or neck vein distention. Cardiovascular examination reveals irregular rhythm and rate. S1-S2 normal. No S3 or S4. No discernible murmur noted. Lungs reveal clear breath sounds. Her sounds are equal bilaterally. No adventitious lung sounds including wheezes rhonchi or crackles. Abdomen soft bowel sounds are heard. No masses or tenderness. Extremities are intact. No cyanosis clubbing or edema. Skin is without rash or lesion. Skin is pale. Neurologic examination is brief but nonfocal. Results 06/21/18 06:16 06/21/18 06:16 Coagulation 06/21/18 Range/Units 10:50 PT 13.6 H (9.0-12.0) sec CBC 06/21/18 Range/Units 06:16 WBC 5.2 (3.8-10.6) k/uL RBC 2.62 L (4.30-5.90) m/uL Hgb 7.6 L (13.0-17.5) gm/dL Hct 24.0 L (39.0-53.0) % Plt Count 110 L (150-450) k/uL Comprehensive Metabolic Panel 06/21/18 Range/Units 06:16 Sodium 138 (137-145) mmol/L Potassium 4.5 (3.5-5.1) mmol/L Chloride 105 (98-107) mmol/L Carbon Dioxide 23 (22-30) mmol/L BUN 79 H (9-20) mg/dL Creatinine 4.25 H (0.66-1.25) mg/dL Glucose 92 (74-99) mg/dL Calcium 9.6 (8.4-10.2) mg/dL Current Medications Generic Name Dose Route Start Last Admin Trade Name Freq PRN Reason Stop Dose Admin Albuterol/Ipratropium 3 ml 06/17/18 01:11 06/21/18 11:31 Duoneb 0.5 Mg-3 Mg/3 Ml Soln INHALATION 3 ml RT-Q4H PRN Administration Shortness Of Breath Or Wheezing Calcium Acetate 667 mg 06/18/18 17:30 06/21/18 11:28 Phoslo PO 667 mg TID-W/MEALS [facility] Administration Darbepoetin Phuc 40 mcg 06/17/18 11:00 06/17/18 18:46 Aranesp SQ 40 mcg Q7D [facility] Administration Ferrous Sulfate 325 mg 06/16/18 22:00 06/21/18 07:51 Feosol PO 325 mg TID OLIVE Administration Furosemide 40 mg 06/21/18 09:00 06/21/18 08:25 Lasix IV Not Given Q12H [facility] Sodium Chloride 1,000 mls @ 25 mls/hr 06/16/18 17:15 06/20/18 16:24 Saline 0.9% IV 25 mls/hr .Q24H [facility] Administration Isosorbide Mononitrate 30 mg 06/17/18 09:00 06/21/18 07:52 Imdur PO 30 mg DAILY [facility] Administration Melatonin 2 mg 06/20/18 14:26 Melatonin PO HS PRN Sleep Metoprolol Tartrate 75 mg 06/16/18 21:00 06/21/18 07:51 Lopressor PO 75 mg BID [facility] Administration Naloxone HCl 0.2 mg 06/16/18 17:05 Narcan IV Q2M PRN Opioid Reversal Pantoprazole Sodium 40 mg 06/17/18 07:30 06/21/18 06:27 Protonix PO 40 mg AC-BRKFST [facility] Administration Polyethylene Glycol/Electrolytes 4,000 ml 06/21/18 16:00 Golytely Lavage PO 06/21/18 16:01 ONCE ONE Sodium Bicarbonate 650 mg 06/18/18 13:15 06/21/18 07:51 Sodium Bicarbonate Tab PO 650 mg BID [facility] Administration Spironolactone 25 mg 06/17/18 09:00 06/21/18 11:28 Aldactone PO 25 mg DAILY [facility] Administration Intake and Output 06/21/18 06/21/18 06/21/18 06:59 14:59 22:59 Intake Total 10 510 Output Total 1200 1000 Balance -1190 -490 Intake: IV 10 10 Invasive Line 1 10 Invasive Line 3 10 Oral 500 Output: Urine 1200 1000 Other: Voiding Method Ileal Conduit (Right) Ileal Conduit (Right) Weight 99.3 kg 06/21/18 06:16 06/21/18 06:16 EKG Interpretations (text) EKG shows atrial fibrillation with left posterior fascicular block. Assessment and Plan Plan: Assessment and plan #1 acute on chronic GI bleeding, for colonoscopy tomorrow. Status post 5 units of packed RBCs on this admission #2 Coumadin induced coagulopathy #3 acute on chronic kidney injury #4 ischemic cardiomyopathy with documented ejection fraction of 25-30% #4 chronic persistent atrial fibrillation #5 history of prior myocardial infarction #6 history of bladder cancer #7 nicotine dependence #8 COPD #9 EtOH use Plan Cardiology's perspective, we will repeat an echocardiogram with Doppler study is a patient just had one last month. We will replace his magnesium and continue current dose of beta radha. Please don't hesitate to call us with any further questions. DNP note has been reviewed, I agree with a documented findings and plan of care. Patient was seen and examined.
[2018-06-21] MEDS ORDERED: PEG 3350-NA SULF,BICARB,CL/KCL 4,000 ML BOTTLE PO ONE (16:00)
[2018-06-21] MEDS: LACTATED RINGERS 1,000 ML IV SCH (18:34)
[2018-06-22] MEDS ORDERED: LORazepam 2 MG/ML INJ ONE (00:36)
[2018-06-22] MEDS: PANTOPRAZOLE 40 MG TABLET PO SCH (02:18)
[2018-06-22] MEDS: CALCIUM ACETATE 667 MG CAP PO SCH ×3 (02:18→17:37)
[2018-06-22 07:18] LABS: Anisocytosis Slight; Basophils % (A) 0 %; Eosinophils # (A) 0.1 k/uL (0-0.7); Eosinophils % (A) 2 %; HCT 23.7 % (39.0-53.0); HGB 7.6 gm/dL (13.0-17.5); Hypochromasia Marked; Lymphocytes # (A) 0.8 k/uL (1.0-4.8); Lymphocytes % (A) 16 %; MCH 29.8 pg (25.0-35.0); MCV 93.2 fL (80.0-100.0); Monocytes # (A) 0.6 k/uL (0-1.0); Monocytes % (A) 13 %; Neutrophils # (A) 3.1 k/uL (1.3-7.7); Neutrophils % (A) 66 %; Platelet Count 115 k/uL (150-450); Poikilocytosis Slight; RBC 2.55 m/uL (4.30-5.90); RDW 17.2 % (11.5-15.5); WBC 4.7 k/uL (3.8-10.6)
[2018-06-22 07:21] LABS: INR 1.5 (<1.2); Prothrombin Time 13.7 sec (9.0-12.0)
[2018-06-22 07:27] LABS: Calcium 9.6 mg/dL (8.4-10.2); Magnesium 2.1 mg/dL (1.6-2.3); Phosphorus 4.8 mg/dL (2.5-4.5); Potassium 5.2 mmol/L (3.5-5.1)
[2018-06-22] MEDS: IPRATROPIUM-ALBUTEROL 3 ML NEB INHALATION PRN ×3 (08:01→19:00)
[2018-06-22] MEDS: METOPROLOL TARTRATE 25 MG TAB PO SCH ×2 (08:36→20:18)
[2018-06-22] MEDS: SODIUM BICARBONATE TAB 650 MG TAB PO SCH ×2 (08:36→20:18)
[2018-06-22] MEDS: FUROSEMIDE 10 MG/ML 4 ML VIAL IV SCH (08:36)
[2018-06-22] MEDS: ISOSORBIDE MONONITRATE ER 30 MG TAB.ER.24H PO SCH (08:36)
--- NOTE | 2018-06-22 10:10 | P.PN ---
Subjective Patient is seen in follow-up for acute kidney injury. Creatinine was 4.05 on admission and did come down to 3.70 this admission. It is up to 4.59 today.. Hemoglobin 7.6 today. Patient has history of systolic CHF with ejection fraction of 25-30% with moderate mitral and tricuspid regurgitation. Chest x- ray suggestive of fluid overload. Edema seems to have improved. He is nonoliguric. Denies any melena or hematochezia. Urine is clear. No hematemesis. Oral intake is good. Vital signs are stable. General: The patient appeared well nourished and normally developed. HEENT: Head exam is unremarkable. Neck is without jugular venous distension. LUNGS: Lungs are clear to auscultation and percussion. Breath sounds decreased. HEART: Rate and Rhythm are regular. First and second heart sounds normal. No murmurs, rubs or gallops. ABDOMEN: Abdominal exam reveals normal bowel sounds. Non-tender and non- distended. No evidence of peritonitis. EXTREMITITES: Trace edema. Objective - Vital Signs Vital signs: Vital Signs Temp 96.8 F L 06/22/18 08:00 Pulse 108 H 06/22/18 08:14 Resp 16 06/22/18 08:00 BP 111/72 06/22/18 08:00 Pulse Ox 92 L 06/22/18 08:01 Intake & Output 06/21/18 06/22/18 06/22/18 18:59 06:59 18:59 Intake Total 1330 240 Output Total 1000 300 Balance 330 -60 Weight 98.6 kg Intake: IV 230 240 Invasive Line 3 30 Lactated Ringers 1,000 ml 240 @ 20 mls/hr IV .Q24H [facility] Rx#:[id number] Magnesium Sulfate-D5w Pmx 200 1 gm In Dextrose/Water 1 100ml.bag @ 100 mls/hr IVPB ONCE ONE Rx#: [id number] Intake, IV Titration 100 Amount Lactated Ringers 1,000 ml 100 @ 20 mls/hr IV .Q24H [facility] Rx#:[id number] Oral 1000 Output: Urine 1000 300 Other: Voiding Method Ileal Conduit (Right) Ileal Conduit (Right) # Bowel Movements 4 - Labs CBC & Chem 7: 06/22/18 06:26 06/22/18 06:26 Labs: Abnormal Lab Results - Last 24 Hours (Table) 06/21/18 06/22/18 06/22/18 Range/Units 10:50 06:26 06:26 RBC 2.55 L (4.30-5.90) m/uL Hgb 7.6 L (13.0-17.5) gm/dL Hct 23.7 L (39.0-53.0) % RDW 17.2 H (11.5-15.5) % Plt Count 115 L (150-450) k/uL Lymphocytes # 0.8 L (1.0-4.8) k/uL PT 13.6 H (9.0-12.0) sec INR 1.5 H (<1.2) Potassium 5.2 H (3.5-5.1) mmol/L BUN 73 H (9-20) mg/dL Creatinine 4.59 H (0.66-1.25) mg/dL Phosphorus 4.8 H (2.5-4.5) mg/dL 06/22/18 Range/Units 06:26 RBC (4.30-5.90) m/uL Hgb (13.0-17.5) gm/dL Hct (39.0-53.0) % RDW (11.5-15.5) % Plt Count (150-450) k/uL Lymphocytes # (1.0-4.8) k/uL PT 13.7 H (9.0-12.0) sec INR 1.5 H (<1.2) Potassium (3.5-5.1) mmol/L BUN (9-20) mg/dL Creatinine (0.66-1.25) mg/dL Phosphorus (2.5-4.5) mg/dL Assessment and Plan Plan: Assessment: 1. Nonoliguric acute kidney injury secondary to ATN secondary to acute anemia. Creatinine 4.05 on admission and did come down to 3.78 this admission - 4.59 today, which is due to diuresis. Creatinine was 1.2 in April 2018. Patient is noted to have moderate bilateral hydronephrosis which is also likely contributing to his renal failure - patient had a loopogram done on June 21 which revealed bilateral hydroureter at the level of anastomosis. 2. Metabolic acidosis secondary to acute kidney injury. Improved. 3. Hyperphosphatemia secondary to acute kidney injury maintained on PhosLo. 4. Acute blood loss anemia secondary to Coumadin toxicity status post 4 units blood transfusion. GI following. The patient has a history of duodenal ulcer. Patient also received a dose of IV DDAVP on June 17. 5. Systolic CHF with ejection fraction of 25-30% with moderate mitral and tricuspid regurgitation. 6. Hypomagnesemia from GI losses. Improved post replacement. 7. Fluid overload. Improved. Plan: I will decrease Lasix to 40 mg IV once daily. Continue to monitor renal function and urine output. Maintain Aranesp. Avoid nephrotoxins. Maintain oral sodium bicarbonate. Scheduled for colonoscopy today. Urology following. Monitor potassium. Will hold Aldactone if rises further.
--- NOTE | 2018-06-22 11:16 | P.PN ---
Progress Note - Text Progress Note Date: 06/22/18 The patient has had no gross hematuria or blood in his stool for several days. He is scheduled to undergo colonoscopy later today. BUN/creatinine today are 73 /4.59. 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 A urine cytology was submitted but is not available yet. I believe that obstructive uropathy is a major contributory factor as far as the patient's renal failure. I discussed placement of percutaneous nephrostomies later this week as an option for temporary palliation of the renal failure. It might be possible to place double-J catheters in an antegrade fashion but eventually I believe the patient will need revision of the distal ureters and this will need to be done at a tertiary Medical Center.
[2018-06-22] MEDS ORDERED: LIDOCAINE 1% INJ 10MG/ML (20 ML MDV) ONE ×2 (11:59)
[2018-06-22] MEDS ORDERED: ePHEDrine SULFATE/0.9% NACL/PF 50 MG/5 ML SYRINGE IV ONE ×2 (11:59)
[2018-06-22] MEDS ORDERED: IV FLUID CONTINUATION 1,000 ML IV ONE (11:59)
[2018-06-22] MEDS ORDERED: PROPOFOL 10 MG/ML 20 ML VIAL IV ONE ×2 (11:59)
--- NOTE | 2018-06-22 12:10 | P.PN ---
Subjective Progress Note Date: 06/22/18 Principal diagnosis: The patient is seen today 06/22/2018 in follow-up on the selective care unit. No current pulmonary complaints. Maintaining O2 saturations in the 90s on room air. The plan is for colonoscopy today. Current hemoglobin is 7.6. INR 1.5. Creatinine 4.59. A loopogram confirmed obstruction of both ureters at the level of the ilial conduit. The patient may have obstructive uropathy achieving to his renal failure. He is being followed by both nephrology and urology. He may require placement of percutaneous nephrostomies for temporary treatment of the renal failure. He remains on IV diuretics and Aldactone. Objective - Vital Signs Vital signs: Vital Signs Temp 96.8 F L 06/22/18 08:00 Pulse 116 H 06/22/18 11:41 Resp 16 06/22/18 08:00 BP 111/72 06/22/18 08:00 Pulse Ox 92 L 06/22/18 08:01 Intake & Output 06/21/18 06/22/18 06/22/18 18:59 06:59 18:59 Intake Total 1330 240 Output Total 1000 300 Balance 330 -60 Weight 98.6 kg Intake: IV 230 240 Invasive Line 3 30 Lactated Ringers 1,000 ml 240 @ 20 mls/hr IV .Q24H [facility] Rx#:[id number] Magnesium Sulfate-D5w Pmx 200 1 gm In Dextrose/Water 1 100ml.bag @ 100 mls/hr IVPB ONCE ONE Rx#: [id number] Intake, IV Titration 100 Amount Lactated Ringers 1,000 ml 100 @ 20 mls/hr IV .Q24H [facility] Rx#:[id number] Oral 1000 Output: Urine 1000 300 Other: Voiding Method Ileal Conduit (Right) Ileal Conduit (Right) Ileal Conduit ( Right) # Bowel Movements 4 - Exam No acute distress, oriented 3. The patient's overall color is pale. HEENT examination is grossly unremarkable. Mucous membranes are moist. No oral lesions. Neck supple. Full range of motion. No adenopathy thyromegaly or neck vein distention. Cardiovascular examination reveals irregular rhythm and rate. S1-S2 normal. No S3 or S4. No discernible murmur noted. Lungs reveal clear breath sounds. Her sounds are equal bilaterally. No adventitious lung sounds including wheezes rhonchi or crackles. Abdomen soft bowel sounds are heard. No masses or tenderness. Extremities are intact. No cyanosis clubbing or edema. Skin is without rash or lesion. Skin is pale. Neurologic examination is brief but nonfocal. - Labs CBC & Chem 7: 06/22/18 06:26 06/22/18 06:26 Labs: Abnormal Lab Results - Last 24 Hours (Table) 06/22/18 06/22/18 06/22/18 Range/Units 06:26 06:26 06:26 RBC 2.55 L (4.30-5.90) m/uL Hgb 7.6 L (13.0-17.5) gm/dL Hct 23.7 L (39.0-53.0) % RDW 17.2 H (11.5-15.5) % Plt Count 115 L (150-450) k/uL Lymphocytes # 0.8 L (1.0-4.8) k/uL PT 13.7 H (9.0-12.0) sec INR 1.5 H (<1.2) Potassium 5.2 H (3.5-5.1) mmol/L BUN 73 H (9-20) mg/dL Creatinine 4.59 H (0.66-1.25) mg/dL Phosphorus 4.8 H (2.5-4.5) mg/dL Assessment and Plan Assessment: Impression: #1 Acute on chronic gastrointestinal bleeding of unclear etiology. Plan is for colonoscopy today. Suspect coagulopathy induced. Current INR 1.5. #2 Acute blood loss anemia secondary to above. Status post 5 units packed red blood cells. Current hemoglobin 7.6. #3 Acute kidney injury secondary to obstructive uropathy and the patient may need placement of percutaneous nephrostomies as temporary palliation of the renal failure later this week. #4 Ischemic cardiomyopathy with ejection fraction of 20-30%. #5 History of chronic atrial fibrillation anticoagulated with warfarin in the outpatient setting. #6 Previous history of GI bleed. #7 History of bladder cancer. #8 Chronic tobacco dependence. #9 Chronic obstructive pulmonary disease, currently inactive and stable. #10 History of alcohol use. Plan: The patient was seen and evaluated by Dr. Varela. He is currently stable from the pulmonary and critical care standpoint. Colonoscopy is pending. The patient may also need nephrostomy tube placement based on loopogram report and suspicion for obstructive uropathy. His overall prognosis is quite guarded. We will continue to follow and make further recommendations based on his clinical status. I, the cosigning physician, performed a history & physical examination of the patient. Lungs sounds with crackles in the bilateral posterior bases. Maintaining good O2 saturations in the 90s on room air. I discussed the assessment and plan of care with my nurse practitioner, Octavia Wu. I attest to the above note as dictated by her.
--- NOTE | 2018-06-22 13:43 | P.PCN ---
Date of Procedure: 06/22/18 Description of Procedure: BRIEF HISTORY: Patient is a 77-year-old pleasant male with a 12 year history of bladder cancer status post resection information of a neobladder who presents with Coumadin coagulopathy and anemia. The patient was seen 1 month ago at which time EGD was performed for anemia which showed nonbleeding duodenal ulcers. On presentation this admission the patient had gross hematuria, however stool was tested and was positive for occult blood. The patient's last colonoscopy per him was over 10 years ago. of PROCEDURE PERFORMED: Flexible sigmoidoscopy (colonoscopy attempted and aborted) . PREOPERATIVE DIAGNOSIS: anemia, stool positive for occult blood, last colonoscopy over 10 years ago. ESTIMATED BLOOD LOSS: Minimal. IV sedation per Anesthesia. PROCEDURE: After informed consent was obtained, the patient, was brought into the endoscopy unit. IV sedation was administered by Anesthesia under continuous monitoring. Digital rectal examination was normal. Initially the Olympus CF- 190 flexible video colonoscope was then inserted in the rectum, gradually advanced into the descending colon approximately 50 cm from the anal verge. Multiple attempts were made to try and bypass this area with external pressure and repositioning of the patient all unsuccessful. At this time and Olympus PCF 190 flexible video pediatric colonoscope was introduced into the rectum and gradually advanced. Again the colonoscope was able to be advanced to a position approximately 50 cm from the anal verge where further advancement was difficult due to a tortuous, fixed colon likely secondary to the patient's extensive prior intra-abdominal surgical history. At this time the scope was gradually withdrawn with careful visualization of the mucosa. No abnormalities , or pathology to explain anemia was noted. The tissue of the descending colon , sigmoid colon and rectum appeared normal. Prep was excellent. Retroflexion was performed in the rectum with mild internal hemorrhoids noted, external hemorrhoids were also noted on digital rectal exam and inspection. The patient tolerated the procedure well and was sent back to his room on medical unit. IMPRESSION: Normal-appearing colon from the rectum to the descending colon and further advancement could not be achieved in spite of external pressure, repositioning of the patient and use of a pediatric colonoscope. Since likely secondary to the patient's extensive intra-abdominal surgery and a fixed tortuous colon. No masses or pathology to explain the patient's anemia were seen. RECOMMENDATIONS: Findings of this examination were discussed with the patient. Continue to monitor hemoglobin and hematocrit and transfuse as needed. Continue urologic workup given presentation with symptoms of hematuria. Okay for diet. Continue PPI therapy in the setting of duodenal ulcers treated on EGD 1 month ago. Would recommend imaging with CT barium enema one kidney function has improved.
--- NOTE | 2018-06-22 14:15 | PN ---
PROGRESS NOTE DATE OF SERVICE: 06/22/2018. CHIEF COMPLAINT: GI blood loss and renal failure. HISTORY OF PRESENT ILLNESS: This gentleman is feeling fairly well and is going for a colonoscopy. It is not clear if he had the ileal conduit endoscopy yesterday. REVIEW OF SYSTEMS: He is having no chest pain, shortness of breath, etc. His laboratory studies reveal potassium of 5.2, and his hemoglobin has leveled off. His kidney functions also stabilized and not improving. PHYSICAL EXAM: Remains slightly pale. His chest is clear and cardiac exam is unchanged with atrial fibrillation. The abdomen is soft, nontender. He is awake and alert. IMPRESSION: 1. Gastrointestinal blood loss. 2. Blood loss anemia. 3. Renal failure. PLAN: Await results colonoscopy today and continue to monitor hemoglobin and renal function. MMODL / IJN: [id number] /
[2018-06-22] MEDS: FERROUS SULFATE 325 MG TAB PO SCH ×3 (17:36→20:18)
[2018-06-22] MEDS: LACTATED RINGERS 1,000 ML IV SCH (17:37)
[2018-06-22] MEDS: SODIUM CHLORIDE 0.9% 1,000 ML IV SCH (17:37)
[2018-06-22] MEDS: SPIRONOLACTONE 25 MG TAB PO SCH (17:37)
[2018-06-23 03:08] LABS: Anisocytosis Slight; Basophils % (A) 0 %; Eosinophils # (A) 0.1 k/uL (0-0.7); Eosinophils % (A) 1 %; HCT 23.1 % (39.0-53.0); HGB 7.3 gm/dL (13.0-17.5); Hypochromasia Marked; Lymphocytes # (A) 0.7 k/uL (1.0-4.8); Lymphocytes % (A) 17 %; MCH 29.5 pg (25.0-35.0); MCHC 31.5 g/dL (31.0-37.0); MCV 93.6 fL (80.0-100.0); Mean Platelet Volume 9.4; Monocytes # (A) 0.6 k/uL (0-1.0); Monocytes % (A) 16 %; Neutrophils # (A) 2.4 k/uL (1.3-7.7); Neutrophils % (A) 62 %; Platelet Count 112 k/uL (150-450); Poikilocytosis Slight; RBC 2.46 m/uL (4.30-5.90); RDW 17.2 % (11.5-15.5); WBC 3.9 k/uL (3.8-10.6)
[2018-06-23 03:23] LABS: Calcium 9.2 mg/dL (8.4-10.2)
[2018-06-23] MEDS: CALCIUM ACETATE 667 MG CAP PO SCH ×3 (06:10→16:04)
[2018-06-23] MEDS: PANTOPRAZOLE 40 MG TABLET PO SCH (06:11)
[2018-06-23] MEDS: IPRATROPIUM-ALBUTEROL 3 ML NEB INHALATION PRN ×4 (07:02→20:00)
[2018-06-23] MEDS: FUROSEMIDE 10 MG/ML 4 ML VIAL IV SCH (08:20)
[2018-06-23] MEDS: METOPROLOL TARTRATE 25 MG TAB PO SCH ×2 (08:20→20:49)
[2018-06-23] MEDS: FERROUS SULFATE 325 MG TAB PO SCH ×3 (08:20→20:49)
[2018-06-23] MEDS: ISOSORBIDE MONONITRATE ER 30 MG TAB.ER.24H PO SCH (08:20)
[2018-06-23] MEDS: SPIRONOLACTONE 25 MG TAB PO SCH (08:21)
[2018-06-23] MEDS: SODIUM BICARBONATE TAB 650 MG TAB PO SCH ×2 (08:21→20:49)
--- NOTE | 2018-06-23 09:46 | P.PN ---
Subjective Patient is seen in follow-up for acute kidney injury. Creatinine was 4.05 on admission and did come down to 3.70 this admission. It is up to 4.77 today.. Hemoglobin 7.3 today. Patient has history of systolic CHF with ejection fraction of 25-30% with moderate mitral and tricuspid regurgitation. Edema seems to have improved. He is nonoliguric. Denies any melena or hematochezia. Urine is clear. No hematemesis. Oral intake is good. Currently maintained on Lasix 40 mg IV once daily. Also noted to have bilateral hydroureter and is scheduled for nephrostomy tubes this admission. Vital signs are stable. General: The patient appeared well nourished and normally developed. HEENT: Head exam is unremarkable. Neck is without jugular venous distension. LUNGS: Lungs are clear to auscultation and percussion. Breath sounds decreased. HEART: Rate and Rhythm are regular. First and second heart sounds normal. No murmurs, rubs or gallops. ABDOMEN: Abdominal exam reveals normal bowel sounds. Non-tender and non- distended. No evidence of peritonitis. EXTREMITITES: Trace edema. Objective - Vital Signs Vital signs: Vital Signs Temp 97.5 F L 06/23/18 08:00 Pulse 100 06/23/18 08:00 Resp 18 06/23/18 08:00 BP 113/70 06/23/18 08:00 Pulse Ox 97 06/23/18 08:00 Intake & Output 06/22/18 06/23/18 06/23/18 18:59 06:59 18:59 Intake Total 908 160 Output Total 500 Balance 908 -340 Weight 98.7 kg Intake: IV 790 160 Lactated Ringers 1,000 ml 240 160 @ 20 mls/hr IV .Q24H [facility] Rx#:[id number] Oral 118 Output: Urine 500 Other: Voiding Method Ileal Conduit (Right) Ileal Conduit (Right) Ileal Conduit ( Right) # Voids 200 - Labs CBC & Chem 7: 06/23/18 02:29 06/23/18 02:29 Labs: Abnormal Lab Results - Last 24 Hours (Table) 06/23/18 06/23/18 Range/Units 02:29 02:29 RBC 2.46 L (4.30-5.90) m/uL Hgb 7.3 L (13.0-17.5) gm/dL Hct 23.1 L (39.0-53.0) % RDW 17.2 H (11.5-15.5) % Plt Count 112 L (150-450) k/uL Lymphocytes # 0.7 L (1.0-4.8) k/uL BUN 76 H (9-20) mg/dL Creatinine 4.77 H (0.66-1.25) mg/dL Assessment and Plan Plan: Assessment: 1. Nonoliguric acute kidney injury secondary to ATN secondary to acute anemia. Creatinine 4.05 on admission and did come down to 3.78 this admission - 4.77 today, which is due to obstructive uropathy. Creatinine was 1.2 in April 2018. Patient is noted to have moderate bilateral hydronephrosis - patient had a loopogram done on June 21 which revealed bilateral hydroureter at the level of anastomosis. 2. Metabolic acidosis secondary to acute kidney injury. Improved. 3. Hyperphosphatemia secondary to acute kidney injury maintained on PhosLo. 4. Acute blood loss anemia secondary to Coumadin toxicity status post 4 units blood transfusion. GI following. The patient has a history of duodenal ulcer. Patient also received a dose of IV DDAVP on June 17. C-scope 06/22 - no obvious source of bleeding noted. 5. Systolic CHF with ejection fraction of 25-30% with moderate mitral and tricuspid regurgitation. 6. Hypomagnesemia from GI losses. Improved post replacement. 7. Fluid overload. Improved. Plan: Maintain Lasix 40 mg IV once daily. Continue to monitor renal function and urine output. Maintain Aranesp. Avoid nephrotoxins. Maintain oral sodium bicarbonate. Urology following - bilateral nephrostomy tubes this admission. Monitor potassium. Will hold Aldactone if rises further.
--- NOTE | 2018-06-23 11:19 | P.PN ---
Subjective Progress Note Date: 06/23/18 Principal diagnosis: The patient is seen today 06/22/2018 in follow-up on the selective care unit. No current pulmonary complaints. Maintaining O2 saturations in the 90s on room air. The plan is for colonoscopy today. Current hemoglobin is 7.6. INR 1.5. Creatinine 4.59. A loopogram confirmed obstruction of both ureters at the level of the ilial conduit. The patient may have obstructive uropathy achieving to his renal failure. He is being followed by both nephrology and urology. He may require placement of percutaneous nephrostomies for temporary treatment of the renal failure. He remains on IV diuretics and Aldactone. The patient is seen again today 06/23/2018 in follow-up on the selective care unit. He is currently resting quite comfortably in bed. He is awake and alert in no acute distress. He did undergo a colonoscopy yesterday and was found to have a normal-appearing colon from the rectum into the descending colon and further advancement could not be achieved despite external pressure, repositioning of the patient and use of pediatric colonoscope. This was felt to be secondary to the patient's extensive intra-abdominal surgery and fixed torturous colon. No masses were noted. No active bleeding noted. Current hemoglobin 7.3. Creatinine 4.77. The plan is for probable bilateral nephrostomy tubes this admission. Again the patient may also need to be transferred to a tertiary care center per urology. No pulmonary complaints. Maintaining good O2 saturations in the upper 90s on 2 L/m per nasal cannula. He 's been afebrile. Objective - Vital Signs Vital signs: Vital Signs Temp 97.5 F L 06/23/18 08:00 Pulse 100 06/23/18 08:00 Resp 18 06/23/18 08:00 BP 113/70 06/23/18 08:00 Pulse Ox 97 06/23/18 08:00 Intake & Output 06/22/18 06/23/18 06/23/18 18:59 06:59 18:59 Intake Total 908 160 Output Total 500 Balance 908 -340 Weight 98.7 kg 98.7 kg Intake: IV 790 160 Lactated Ringers 1,000 ml 240 160 @ 20 mls/hr IV .Q24H [facility] Rx#:[id number] Oral 118 Output: Urine 500 Other: Voiding Method Ileal Conduit (Right) Ileal Conduit (Right) Ileal Conduit ( Right) # Voids 200 - Exam GENERAL EXAM: Alert, active, comfortable in no apparent distress. HEAD: Normocephalic. EYES: Normal reaction of pupils, equal size. NOSE: Clear with pink turbinates. THROAT: No erythema or exudates. NECK: No masses, no JVD. CHEST: No chest wall deformity. LUNGS: Equal air entry with no crackles, wheeze, rhonchi or dullness. CVS: S1 and S2 normal with no audible murmur, regular rhythm. ABDOMEN: No hepatosplenomegaly, normal bowel sounds, no guarding or rigidity. SPINE: No scoliosis or deformity SKIN: No rashes CENTRAL NERVOUS SYSTEM: No focal deficits, tone is normal in all 4 extremities. EXTREMITIES: There is no peripheral edema. No clubbing, no cyanosis. Peripheral pulses are intact. - Labs CBC & Chem 7: 06/23/18 02:29 06/23/18 02:29 Labs: Abnormal Lab Results - Last 24 Hours (Table) 06/23/18 06/23/18 Range/Units 02:29 02:29 RBC 2.46 L (4.30-5.90) m/uL Hgb 7.3 L (13.0-17.5) gm/dL Hct 23.1 L (39.0-53.0) % RDW 17.2 H (11.5-15.5) % Plt Count 112 L (150-450) k/uL Lymphocytes # 0.7 L (1.0-4.8) k/uL BUN 76 H (9-20) mg/dL Creatinine 4.77 H (0.66-1.25) mg/dL Assessment and Plan Assessment: Impression: #1 Acute on chronic gastrointestinal bleeding of unclear etiology. Suspect coagulopathy induced. Colonoscopy was incomplete due to extensive abdominal surgery and torturous colon but areas that were visualized showed no masses or active bleeding. #2 Acute blood loss anemia secondary to above. Status post 5 units packed red blood cells. Current hemoglobin 7.3. #3 Acute kidney injury secondary to obstructive uropathy and the patient may need placement of percutaneous nephrostomies as temporary palliation of the renal failure later this week. #4 Ischemic cardiomyopathy with ejection fraction of 20-30%. #5 History of chronic atrial fibrillation anticoagulated with warfarin in the outpatient setting. #6 Previous history of GI bleed. #7 History of bladder cancer. #8 Chronic tobacco dependence. #9 Chronic obstructive pulmonary disease, currently inactive and stable. #10 History of alcohol use. Plan: The patient was seen and evaluated by Dr. Varela. He is currently stable from the pulmonary standpoint. Colonoscopy results reviewed. No active bleeding noted. Current hemoglobin 7.3. The patient may also need nephrostomy tube placement based on loopogram report and suspicion for obstructive uropathy. His overall prognosis is quite guarded. He may need transfer to tertiary care center. We will continue to follow and make further recommendations based on his clinical status. I, the cosigning physician, performed a history & physical examination of the patient. Lungs sounds with crackles in the bilateral posterior bases. Maintaining good O2 saturations in the 90s on 2 L/m per nasal cannula. I discussed the assessment and plan of care with my nurse practitioner, Octavia Wu. I attest to the above note as dictated by her.
--- NOTE | 2018-06-23 11:48 | PN ---
PROGRESS NOTE DATE OF SERVICE: 06/20/2018 CHIEF COMPLAINT: Upper GI bleed, renal failure. HISTORY OF PRESENT ILLNESS: This patient is fairly stable. He is awake and alert and started to move about. Renal function is not improving very quickly and his hemoglobin remains low. He is being further evaluated by Urology and GI. PHYSICAL EXAM: He remains pale. Chest demonstrates occasional rales and rhonchi throughout, but his chest is generally clearing. Cardiac exam demonstrates atrial fibrillation and his abdomen is soft, nontender. IMPRESSION: 1. Upper gastrointestinal hemorrhage. 2. Blood loss anemia. 3. Renal failure. 4. Atrial fibrillation. PLAN: Await further evaluation by Urology and Gastroenterology. MMODL / IJN: [id number] /
--- NOTE | 2018-06-23 11:57 | PN ---
PROGRESS NOTE DATE OF SERVICE: 06/21/2018. CHIEF COMPLAINT: GI bleed and possible obstructive uropathy. HISTORY OF PRESENT ILLNESS: This gentleman is suppose to be going to the operating room for Urology to look into his ileal loop to see if there is a distal ureteral obstruction because he has evidence of bilateral hydronephrosis. He is doing well otherwise. His BUN is 79, creatinine 4.25. PHYSICAL EXAM: Chest is clear. Cardiac exam is unchanged with atrial fibrillation. Abdomen is soft, nontender. IMPRESSION: 1. Renal failure. 2. Upper gastrointestinal hemorrhage. 3. Blood loss anemia. PLAN: Ileal loop scope today. MMODL / IJN: [id number] /
--- NOTE | 2018-06-23 12:12 | PN ---
PROGRESS NOTE DATE OF SERVICE: 06/23/2018 CHIEF COMPLAINT: Blood loss anemia. HISTORY OF PRESENT ILLNESS: This gentleman is feeling well and apparently underwent the colonoscopy yesterday. Reports will be reviewed. He says that they are talking about doing a barium enema. PHYSICAL EXAM: He is awake and alert. He is pale. Chest is clear and cardiac exam demonstrates atrial fibrillation. Abdomen is soft, nontender. IMPRESSION: 1. Upper gastrointestinal hemorrhage. 2. Atrial fibrillation. 3. Renal failure. PLAN: Progress activity and await further evaluations before discharge plan is formulated. MMODL / IJN: [id number] /
--- NOTE | 2018-06-23 12:26 | P.PN ---
Progress Note - Text Progress Note Date: 06/23/18 The patient's urine remains clear. He says he's had no blood in his stool and is under the assumption that no abnormality was noted yesterday during colonoscopy but the report is not available in the computer. BUN/creatinine are 76/4.77. I told the patient that due to the continued impairment in his renal function placement of bilateral nephrostomy tubes will be set up. Once this is done the patient will need to have arrangements made so that he can be reevaluated at the [facility] which is where he had his original treatment for bladder cancer with radical cystectomy.
--- NOTE | 2018-06-23 14:09 | P.PN ---
Subjective Progress Note Date: 06/23/18 Principal diagnosis: Anemia Status post colonoscopy yesterday incomplete secondary to suspected tortuous bowel possible intra-abdominal adhesions. No further bleeding from ostomy. Patient states he is being transferred to a tertiary center for further urologic workup. Hemoglobin 7.3. Denies abdominal pain. Objective - Vital Signs Vital signs: Vital Signs Temp 97.3 F L 06/23/18 11:29 Pulse 90 06/23/18 11:41 Resp 18 06/23/18 11:29 BP 132/70 06/23/18 11:29 Pulse Ox 98 06/23/18 11:29 Intake & Output 06/22/18 06/23/18 06/23/18 18:59 06:59 18:59 Intake Total 908 160 Output Total 500 500 Balance 908 -340 -500 Weight 98.7 kg 98.7 kg Intake: IV 790 160 Lactated Ringers 1,000 ml 240 160 @ 20 mls/hr IV .Q24H [facility] Rx#:[id number] Oral 118 Output: Urine 500 500 Other: Voiding Method Ileal Conduit (Right) Ileal Conduit (Right) Ileal Conduit ( Right) # Voids 200 - Exam General appearance: The patient is alert, oriented, in no acute distress. HET: Head is normocephalic and atraumatic. Pupils are equal and reactive. Oropharynx is clear without lesions. Neck: Supple without lymphadenopathy. Trachea midline. Heart: S1 S2. Regular rate and rhythm. Lungs: No crackles or wheezes are heard. Abdomen: Soft, nontender, nondistended with bowel sounds. Urostomy with clear yellow urine. No peritoneal signs. No palpable organomegaly or masses. Extremities: Normal skin color and turgor. No cyanosis, rash, ulceration, clubbing, or edema. Radial and pedal pulses are 2/4 bilaterally. Neurological: No focal deficits. Strength and sensation are grossly intact. - Labs CBC & Chem 7: 06/23/18 02:29 06/23/18 02:29 Labs: Abnormal Lab Results - Last 24 Hours (Table) 06/23/18 06/23/18 Range/Units 02:29 02:29 RBC 2.46 L (4.30-5.90) m/uL Hgb 7.3 L (13.0-17.5) gm/dL Hct 23.1 L (39.0-53.0) % RDW 17.2 H (11.5-15.5) % Plt Count 112 L (150-450) k/uL Lymphocytes # 0.7 L (1.0-4.8) k/uL BUN 76 H (9-20) mg/dL Creatinine 4.77 H (0.66-1.25) mg/dL Assessment and Plan (1) History of duodenal ulcer Current Visit: Yes Status: Acute Code(s): Z87.19 - PERSONAL HISTORY OF OTHER DISEASES OF THE DIGESTIVE SYSTEM SNOMED Code(s): 657901712 (2) Acute blood loss anemia Current Visit: Yes Status: Acute Code(s): D62 - ACUTE POSTHEMORRHAGIC ANEMIA SNOMED Code(s): 676877548 (3) Acute kidney injury Current Visit: Yes Status: Acute Code(s): N17.9 - ACUTE KIDNEY FAILURE, UNSPECIFIED SNOMED Code(s): 61195542 (4) Coumadin toxicity Current Visit: Yes Status: Acute Code(s): T45.511A - POISONING BY ANTICOAGULANTS, ACCIDENTAL, INIT SNOMED Code(s): 67463652 Plan: 1. Incomplete colonoscopy recommend CT barium enema as outpatient. Patient is being transferred a tertiary center for further urologic workup. Assessment and plan of care discussed with Dr. Adams
[2018-06-23] MEDS: SODIUM CHLORIDE 0.9% 1,000 ML IV SCH (15:57)
[2018-06-23] MEDS: LACTATED RINGERS 1,000 ML IV SCH (16:03)
[2018-06-24] MEDS: PANTOPRAZOLE 40 MG TABLET PO SCH (06:25)
[2018-06-24] MEDS: CALCIUM ACETATE 667 MG CAP PO SCH ×3 (06:25→17:22)
[2018-06-24 06:58] LABS: INR 1.4 (<1.2)
[2018-06-24 07:06] LABS: Calcium 9.4 mg/dL (8.4-10.2); Potassium 4.7 mmol/L (3.5-5.1)
[2018-06-24] MEDS: FERROUS SULFATE 325 MG TAB PO SCH ×3 (08:06→21:45)
[2018-06-24] MEDS: FUROSEMIDE 10 MG/ML 4 ML VIAL IV SCH (08:06)
[2018-06-24] MEDS: ISOSORBIDE MONONITRATE ER 30 MG TAB.ER.24H PO SCH (08:07)
[2018-06-24] MEDS: METOPROLOL TARTRATE 25 MG TAB PO SCH ×2 (08:07→19:58)
[2018-06-24] MEDS: SODIUM BICARBONATE TAB 650 MG TAB PO SCH ×2 (08:07→19:58)
[2018-06-24] MEDS: SPIRONOLACTONE 25 MG TAB PO SCH (08:07)
[2018-06-24] MEDS: IPRATROPIUM-ALBUTEROL 3 ML NEB INHALATION PRN ×3 (08:50→20:51)
--- NOTE | 2018-06-24 09:46 | P.PN ---
Subjective Patient is seen in follow-up for acute kidney injury. Creatinine was 4.05 on admission and did come down to 3.70 this admission. It is stable at 4.79 today.. Hemoglobin 7.3 today. Patient has history of systolic CHF with ejection fraction of 25-30% with moderate mitral and tricuspid regurgitation. Edema seems to have improved. He is nonoliguric. Denies any melena or hematochezia. Urine is clear. No hematemesis. Oral intake is good. Currently maintained on Lasix 40 mg IV once daily. Also noted to have bilateral hydroureter and is scheduled for nephrostomy tubes tomorrow. Vital signs are stable. General: The patient appeared well nourished and normally developed. HEENT: Head exam is unremarkable. Neck is without jugular venous distension. LUNGS: Lungs are clear to auscultation and percussion. Breath sounds decreased. HEART: Rate and Rhythm are regular. First and second heart sounds normal. No murmurs, rubs or gallops. ABDOMEN: Abdominal exam reveals normal bowel sounds. Non-tender and non- distended. No evidence of peritonitis. EXTREMITITES: Trace edema. Objective - Vital Signs Vital signs: Vital Signs Temp 97.1 F L 06/24/18 08:00 Pulse 100 06/24/18 09:02 Resp 18 06/24/18 08:00 BP 128/71 06/24/18 08:00 Pulse Ox 96 06/24/18 08:00 Intake & Output 06/23/18 06/24/18 06/24/18 18:59 06:59 18:59 Intake Total 222 220 Output Total 500 2050 Balance -500 -1828 220 Weight 98.7 kg 98.6 kg Intake: Oral 222 220 Output: Urine 500 2050 Right Lower Abdomen 450 Other: Voiding Method Ileal Conduit (Right) Ileal Conduit (Right) Ileal Conduit ( Right) - Labs CBC & Chem 7: 06/23/18 02:29 06/24/18 06:17 Labs: Abnormal Lab Results - Last 24 Hours (Table) 06/24/18 06/24/18 Range/Units 06:17 06:17 PT 13.0 H (9.0-12.0) sec INR 1.4 H (<1.2) BUN 70 H (9-20) mg/dL Creatinine 4.79 H (0.66-1.25) mg/dL Assessment and Plan Plan: Assessment: 1. Nonoliguric acute kidney injury secondary to ATN secondary to acute anemia. Creatinine 4.05 on admission and did come down to 3.78 this admission - stable at 4.79 today, which is due to obstructive uropathy. Creatinine was 1.2 in April 2018. Patient is noted to have moderate bilateral hydronephrosis - patient had a loopogram done on June 21 which revealed bilateral hydroureter at the level of anastomosis. 2. Metabolic acidosis secondary to acute kidney injury. Improved. 3. Hyperphosphatemia secondary to acute kidney injury maintained on PhosLo. 4. Acute blood loss anemia secondary to Coumadin toxicity status post 4 units blood transfusion. GI following. The patient has a history of duodenal ulcer. Patient also received a dose of IV DDAVP on June 17. C-scope 06/22 - no obvious source of bleeding noted. 5. Systolic CHF with ejection fraction of 25-30% with moderate mitral and tricuspid regurgitation. 6. Hypomagnesemia from GI losses. Improved post replacement. 7. Fluid overload. Improved. Plan: Maintain Lasix 40 mg IV once daily. Continue to monitor renal function and urine output. Maintain Aranesp. Avoid nephrotoxins. Maintain oral sodium bicarbonate. Urology following - bilateral nephrostomy tubes tomorrow. Monitor potassium as he's on aldactone. To get 1 unit pRBC today.
--- NOTE | 2018-06-24 10:54 | P.PN ---
Subjective Progress Note Date: 06/24/18 Principal diagnosis: The patient is seen today 06/22/2018 in follow-up on the selective care unit. No current pulmonary complaints. Maintaining O2 saturations in the 90s on room air. The plan is for colonoscopy today. Current hemoglobin is 7.6. INR 1.5. Creatinine 4.59. A loopogram confirmed obstruction of both ureters at the level of the ilial conduit. The patient may have obstructive uropathy achieving to his renal failure. He is being followed by both nephrology and urology. He may require placement of percutaneous nephrostomies for temporary treatment of the renal failure. He remains on IV diuretics and Aldactone. The patient is seen again today 06/23/2018 in follow-up on the selective care unit. He is currently resting quite comfortably in bed. He is awake and alert in no acute distress. He did undergo a colonoscopy yesterday and was found to have a normal-appearing colon from the rectum into the descending colon and further advancement could not be achieved despite external pressure, repositioning of the patient and use of pediatric colonoscope. This was felt to be secondary to the patient's extensive intra-abdominal surgery and fixed torturous colon. No masses were noted. No active bleeding noted. Current hemoglobin 7.3. Creatinine 4.77. The plan is for probable bilateral nephrostomy tubes this admission. Again the patient may also need to be transferred to a tertiary care center per urology. No pulmonary complaints. Maintaining good O2 saturations in the upper 90s on 2 L/m per nasal cannula. He 's been afebrile. Patient is seen again today 06/24/2018 in follow-up on the selective care unit. He is awake and alert in no acute distress. He denies any worsening shortness of breath, cough or congestion. Maintaining good O2 saturations in the 90s on room air. He's been afebrile. Hemodynamically stable. Creatinine is up again today at 4.79, BUN 70. INR 1.4. The plan is for placement of bilateral nephrostomy tubes by interventional radiology possibly today. Objective - Vital Signs Vital signs: Vital Signs Temp 97.1 F L 06/24/18 08:00 Pulse 100 06/24/18 09:02 Resp 18 06/24/18 08:00 BP 128/71 06/24/18 08:00 Pulse Ox 96 06/24/18 08:00 Intake & Output 06/23/18 06/24/18 06/24/18 18:59 06:59 18:59 Intake Total 222 220 Output Total 500 2049 Balance -500 -182 220 Weight 98.7 kg 98.6 kg Intake: Oral 222 220 Output: Urine 500 2049 Right Lower Abdomen 450 Other: Voiding Method Ileal Conduit (Right) Ileal Conduit (Right) Ileal Conduit ( Right) - Exam GENERAL EXAM: Alert, active, comfortable in no apparent distress. HEAD: Normocephalic. EYES: Normal reaction of pupils, equal size. NOSE: Clear with pink turbinates. THROAT: No erythema or exudates. NECK: No masses, no JVD. CHEST: No chest wall deformity. LUNGS: Equal air entry with no crackles, wheeze, rhonchi or dullness. CVS: S1 and S2 normal with no audible murmur, regular rhythm. ABDOMEN: No hepatosplenomegaly, normal bowel sounds, no guarding or rigidity. SPINE: No scoliosis or deformity SKIN: No rashes CENTRAL NERVOUS SYSTEM: No focal deficits, tone is normal in all 4 extremities. EXTREMITIES: There is no peripheral edema. No clubbing, no cyanosis. Peripheral pulses are intact. - Labs CBC & Chem 7: 06/23/18 02:29 06/24/18 06:17 Labs: Abnormal Lab Results - Last 24 Hours (Table) 06/24/18 06/24/18 Range/Units 06:17 06:17 PT 13.0 H (9.0-12.0) sec INR 1.4 H (<1.2) BUN 70 H (9-20) mg/dL Creatinine 4.79 H (0.66-1.25) mg/dL Assessment and Plan Assessment: Impression: #1 Acute on chronic gastrointestinal bleeding of unclear etiology. Suspect coagulopathy induced. Colonoscopy was incomplete due to extensive abdominal surgery and torturous colon but areas that were visualized showed no masses or active bleeding. #2 Acute blood loss anemia secondary to above. Status post 5 units packed red blood cells. Current hemoglobin 7.3. #3 Acute kidney injury secondary to obstructive uropathy and the patient will need placement of percutaneous nephrostomies as temporary palliation of the renal failure. #4 Ischemic cardiomyopathy with ejection fraction of 20-30%. #5 History of chronic atrial fibrillation anticoagulated with warfarin in the outpatient setting. #6 Previous history of GI bleed. #7 History of bladder cancer. #8 Chronic tobacco dependence. #9 Chronic obstructive pulmonary disease, currently inactive and stable. #10 History of alcohol use. Plan: The patient was seen and evaluated by Dr. Varela. He is currently stable from the pulmonary standpoint. The plan is for bilateral nephrostomy tubes to be placed today by interventional radiology. He will need follow-up at the [facility] where his original bladder cancer treatment was performed. We will continue to follow and make further recommendations based on his clinical status. I, the cosigning physician, performed a history & physical examination of the patient. Lungs sounds with crackles in the bilateral posterior bases. Maintaining good O2 saturations in the 90s on room air. I discussed the assessment and plan of care with my nurse practitioner, Octavia Wu. I attest to the above note as dictated by her.
[2018-06-24] MEDS: DARBEPOETIN ALFA 40 MCG/0.4 ML SYRINGE SQ SCH (14:35)
[2018-06-24] MEDS: SODIUM CHLORIDE 0.9% 1,000 ML IV SCH (14:36)
[2018-06-24] MEDS: LACTATED RINGERS 1,000 ML IV SCH (16:00)
[2018-06-24 20:32] LABS: Anisocytosis Slight; Basophils % (A) 0 %; Eosinophils # (A) 0.1 k/uL (0-0.7); Eosinophils % (A) 2 %; HCT 25.6 % (39.0-53.0); HGB 7.8 gm/dL (13.0-17.5); Hypochromasia Marked; Lymphocytes # (A) 0.7 k/uL (1.0-4.8); Lymphocytes % (A) 15 %; MCH 28.3 pg (25.0-35.0); MCHC 30.6 g/dL (31.0-37.0); MCV 92.4 fL (80.0-100.0); Mean Platelet Volume 11.2; Monocytes # (A) 0.7 k/uL (0-1.0); Monocytes % (A) 17 %; Neutrophils # (A) 2.7 k/uL (1.3-7.7); Neutrophils % (A) 63 %; Platelet Count 101 k/uL (150-450); Poikilocytosis Slight; RBC 2.77 m/uL (4.30-5.90); RDW 16.7 % (11.5-15.5); WBC 4.3 k/uL (3.8-10.6)
--- NOTE | 2018-06-24 22:05 | PN ---
PROGRESS NOTE CHIEF COMPLAINT: Difficulty breathing. HISTORY OF PRESENT ILLNESS: This gentleman is having more difficulty breathing and he is more short of breath. Hemoglobin is slightly elevated. BUN and creatinine are coming down very slightly. PHYSICAL EXAM: Chest demonstrates bilateral wheezing and rales throughout. Cardiac exam demonstrates his atrial fibrillation. Abdomen is soft and nontender. IMPRESSION: 1. Blood loss anemia. 2. Upper GI bleed. 3. Renal failure. 4. Chronic obstructive pulmonary disease. PLAN: 1. Continue with [facility]. 2. Await further evaluation regarding his hematuria and GI blood loss. MMODL / IJN: [id number] /
[2018-06-25] MEDS: CALCIUM ACETATE 667 MG CAP PO SCH ×3 (06:13→17:08)
[2018-06-25] MEDS: PANTOPRAZOLE 40 MG TABLET PO SCH (06:13)
--- NOTE | 2018-06-25 08:08 | P.PN ---
Subjective Patient is seen in follow-up for acute kidney injury. Creatinine was 4.05 on admission and did come down to 3.70 this admission. The past 2 days it's been stable at 4.7. Hemoglobin 7.8 today. Patient has history of systolic CHF with ejection fraction of 25-30% with moderate mitral and tricuspid regurgitation. Edema seems to have improved. He is nonoliguric. Denies any melena or hematochezia. Urine is clear. No hematemesis. Oral intake is good. Currently maintained on Lasix 40 mg IV once daily. Does admit to intermittent dyspnea. Also noted to have bilateral hydroureter and is scheduled for nephrostomy tubes today. Vital signs are stable. General: The patient appeared well nourished and normally developed. HEENT: Head exam is unremarkable. Neck is without jugular venous distension. LUNGS: Lungs are clear to auscultation and percussion. Breath sounds decreased. HEART: Rate and Rhythm are regular. First and second heart sounds normal. No murmurs, rubs or gallops. ABDOMEN: Abdominal exam reveals normal bowel sounds. Non-tender and non- distended. No evidence of peritonitis. EXTREMITITES: Trace edema. Objective - Vital Signs Vital signs: Vital Signs Temp 97 F L 06/25/18 03:45 Pulse 95 06/25/18 03:45 Resp 18 06/25/18 03:45 BP 139/69 06/25/18 03:45 Pulse Ox 99 06/25/18 03:45 Intake & Output 06/24/18 06/25/18 06/25/18 18:59 06:59 18:59 Intake Total 530 160 Output Total 800 1150 Balance -270 -990 Weight 98.6 kg Intake: IV 160 Invasive Line 5 20 Lactated Ringers 1,000 ml 140 @ 20 mls/hr IV .Q24H [facility] Rx#:[id number] Oral 220 Blood Product 310 Rc As-1 Unit 310 [id number] Output: Urine 800 1150 Other: Voiding Method Ileal Conduit (Right) Ileal Conduit (Right) - Labs CBC & Chem 7: 06/24/18 20:17 06/24/18 06:17 Labs: Abnormal Lab Results - Last 24 Hours (Table) 06/24/18 06/24/18 Range/Units 11:17 20:17 RBC 2.77 L (4.30-5.90) m/uL Hgb 7.8 L (13.0-17.5) gm/dL Hct 25.6 L (39.0-53.0) % MCHC 30.6 L (31.0-37.0) g/dL RDW 16.7 H (11.5-15.5) % Plt Count 101 L (150-450) k/uL Lymphocytes # 0.7 L (1.0-4.8) k/uL Crossmatch See Detail Assessment and Plan Plan: Assessment: 1. Nonoliguric acute kidney injury secondary to ATN secondary to acute anemia. Creatinine 4.05 on admission and did come down to 3.78 this admission - stable near 4.7 past 2 days, which is due to obstructive uropathy. Creatinine was 1.2 in April 2018. Patient is noted to have moderate bilateral hydronephrosis - patient had a loopogram done on June 21 which revealed bilateral hydroureter at the level of anastomosis. 2. Metabolic acidosis secondary to acute kidney injury. Improved. 3. Hyperphosphatemia secondary to acute kidney injury maintained on PhosLo. 4. Acute blood loss anemia secondary to Coumadin toxicity status post 4 units blood transfusion. GI following. The patient has a history of duodenal ulcer. Patient also received a dose of IV DDAVP on June 17. C-scope 06/22 - no obvious source of bleeding noted. 5. Systolic CHF with ejection fraction of 25-30% with moderate mitral and tricuspid regurgitation. 6. Hypomagnesemia from GI losses. Improved post replacement. 7. Fluid overload. Improved. Plan: Maintain Lasix 40 mg IV once daily. Continue to monitor renal function and urine output. Maintain Aranesp. Avoid nephrotoxins. Maintain oral sodium bicarbonate. Urology following - bilateral nephrostomy tubes today. Monitor potassium as he's on aldactone.
--- NOTE | 2018-06-25 08:08 | CDI ---
Last Revision, August 2017 Documentation Clarification Form Date: 06/25/18 From: Ciarra Nj Admit Date: 06/16/2018 5:05:00 PM Patient Name: Baudilio Putnam Visit Number: [id number] ATTENTION: The Clinical Documentation Specialists (CDI) and [facility] Coding Staff appreciate your assistance in clarifying documentation. Please respond to the clarification below the line at the bottom and electronically sign. The CDI & [facility] Coding staff will review the response and follow-up if needed. Please note: Queries are made part of the Legal Health Record. If you have any questions, please contact the author of this message via ITS. Dr. Pb Varela, DO, Can you please render your opinion on the following documentation? Pt. admitted with GI bleed, anemia, and acute renal failure History/Risk Factors: a fib, bladder and prostate cancer (urostomy), hemorrhoids , [place], x smoker Pt. does not have history of COPD documented. Clinical Indicators: CXR: Cardiomegaly with small bilateral pleural effusions and associated left basilar atelectasis and/or infiltrate Vital Signs/Pulse Oximetry: Lung and Respiratory Assessment: ED Normal lungs bilaterally. PN 06/19: states he is short of breath. Some wheezing and occasions rales. Treatment: Nebulizers: Duoneb In your professional opinion, can you please clarify if the above findings and treatment signify any of the following? COPD ruled out COPD ruled in, (please specify) Acute Exacerbation of Chronic Obstructive Pulmonary Disease (COPD) Acute on Chronic Obstructive Asthma Acute on chronic bronchitis Other condition, please specify Unable to determine Present on Admission? Yes or No MTDD
[2018-06-25] MEDS ORDERED: LIDOCAINE 1% INJ 10MG/ML (20 ML MDV) ONE (08:15)
[2018-06-25] MEDS: IPRATROPIUM-ALBUTEROL 3 ML NEB INHALATION PRN (08:20)
[2018-06-25] MEDS ORDERED: fentaNYL (PF) 50 MCG/ML 2 ML AMP ONE (08:55)
[2018-06-25] MEDS ORDERED: MIDAZOLAM 2 MG/2 ML VIAL ONE (08:56)
[2018-06-25] MEDS ORDERED: MIDAZOLAM 2 MG/2 ML VIAL IV ONE (09:01)
[2018-06-25] MEDS ORDERED: IV FLUID CONTINUATION 1,000 ML IV ONE (09:01)
[2018-06-25] MEDS ORDERED: fentaNYL (PF) 50 MCG/ML 2 ML AMP IV ONE (09:01)
[2018-06-25] MEDS ORDERED: LIDOCAINE 1% INJ 10MG/ML (20 ML MDV) SQ ONE (09:06)
[2018-06-25] MEDS: SODIUM BICARBONATE TAB 650 MG TAB PO SCH ×2 (10:49→20:31)
[2018-06-25] MEDS: METOPROLOL TARTRATE 25 MG TAB PO SCH ×2 (10:49→20:31)
[2018-06-25] MEDS: SPIRONOLACTONE 25 MG TAB PO SCH (10:49)
[2018-06-25] MEDS: ISOSORBIDE MONONITRATE ER 30 MG TAB.ER.24H PO SCH (10:50)
[2018-06-25] MEDS: FUROSEMIDE 10 MG/ML 4 ML VIAL IV SCH (10:50)
[2018-06-25] MEDS: FERROUS SULFATE 325 MG TAB PO SCH ×3 (10:50→20:31)
--- NOTE | 2018-06-25 11:59 | P.PN ---
Subjective Progress Note Date: 06/25/18 Principal diagnosis: The patient is seen today 06/22/2018 in follow-up on the selective care unit. No current pulmonary complaints. Maintaining O2 saturations in the 90s on room air. The plan is for colonoscopy today. Current hemoglobin is 7.6. INR 1.5. Creatinine 4.59. A loopogram confirmed obstruction of both ureters at the level of the ilial conduit. The patient may have obstructive uropathy achieving to his renal failure. He is being followed by both nephrology and urology. He may require placement of percutaneous nephrostomies for temporary treatment of the renal failure. He remains on IV diuretics and Aldactone. The patient is seen again today 06/23/2018 in follow-up on the selective care unit. He is currently resting quite comfortably in bed. He is awake and alert in no acute distress. He did undergo a colonoscopy yesterday and was found to have a normal-appearing colon from the rectum into the descending colon and further advancement could not be achieved despite external pressure, repositioning of the patient and use of pediatric colonoscope. This was felt to be secondary to the patient's extensive intra-abdominal surgery and fixed torturous colon. No masses were noted. No active bleeding noted. Current hemoglobin 7.3. Creatinine 4.77. The plan is for probable bilateral nephrostomy tubes this admission. Again the patient may also need to be transferred to a tertiary care center per urology. No pulmonary complaints. Maintaining good O2 saturations in the upper 90s on 2 L/m per nasal cannula. He 's been afebrile. Patient is seen again today 06/24/2018 in follow-up on the selective care unit. He is awake and alert in no acute distress. He denies any worsening shortness of breath, cough or congestion. Maintaining good O2 saturations in the 90s on room air. He's been afebrile. Hemodynamically stable. Creatinine is up again today at 4.79, BUN 70. INR 1.4. The plan is for placement of bilateral nephrostomy tubes by interventional radiology possibly today. The patient is seen again today 06/25/2018 in follow-up on the selective care unit. He is currently resting comfortably in bed. He did undergo a right- sided nephrostomy tube placement today per IR. He's afebrile. Hemodynamically stable. Maintaining good O2 saturations in the mid 90s on 2 L/m per nasal cannula. He denies any worsening shortness of breath, cough or congestion. Objective - Vital Signs Vital signs: Vital Signs Temp 96.9 F L 06/25/18 11:15 Pulse 96 06/25/18 08:30 Resp 16 06/25/18 11:15 BP 135/89 06/25/18 11:15 Pulse Ox 95 06/25/18 11:15 Intake & Output 06/24/18 06/25/18 06/25/18 18:59 06:59 18:59 Intake Total 530 160 200 Output Total 800 1150 Balance -270 -990 200 Weight 98.6 kg Intake: IV 160 200 Invasive Line 5 20 Lactated Ringers 1,000 ml 140 @ 20 mls/hr IV .Q24H [facility] Rx#:[id number] Oral 220 0 Blood Product 310 Rc As-1 Unit 310 [id number] Output: Urine 800 1150 Other: Voiding Method Ileal Conduit (Right) Ileal Conduit (Right) Ileal Conduit ( Right) - Exam GENERAL EXAM: Alert, active, comfortable in no apparent distress. HEAD: Normocephalic. EYES: Normal reaction of pupils, equal size. NOSE: Clear with pink turbinates. THROAT: No erythema or exudates. NECK: No masses, no JVD. CHEST: No chest wall deformity. LUNGS: Equal air entry with no crackles, wheeze, rhonchi or dullness. CVS: S1 and S2 normal with no audible murmur, regular rhythm. ABDOMEN: No hepatosplenomegaly, normal bowel sounds, no guarding or rigidity. SPINE: No scoliosis or deformity SKIN: No rashes CENTRAL NERVOUS SYSTEM: No focal deficits, tone is normal in all 4 extremities. EXTREMITIES: There is no peripheral edema. No clubbing, no cyanosis. Peripheral pulses are intact. - Labs CBC & Chem 7: 06/24/18 20:17 06/24/18 06:17 Labs: Abnormal Lab Results - Last 24 Hours (Table) 06/24/18 06/24/18 Range/Units 11:17 20:17 RBC 2.77 L (4.30-5.90) m/uL Hgb 7.8 L (13.0-17.5) gm/dL Hct 25.6 L (39.0-53.0) % MCHC 30.6 L (31.0-37.0) g/dL RDW 16.7 H (11.5-15.5) % Plt Count 101 L (150-450) k/uL Lymphocytes # 0.7 L (1.0-4.8) k/uL Crossmatch See Detail Assessment and Plan Assessment: Impression: #1 Acute on chronic gastrointestinal bleeding of unclear etiology. Suspect coagulopathy induced. Colonoscopy was incomplete due to extensive abdominal surgery and torturous colon but areas that were visualized showed no masses or active bleeding. #2 Acute blood loss anemia secondary to above. Status post 5 units packed red blood cells. Current hemoglobin 7.3. #3 Acute kidney injury secondary to obstructive uropathy and the patient will need placement of percutaneous nephrostomies as temporary palliation of the renal failure. Status post right-sided nephrostomy tube placement. #4 Ischemic cardiomyopathy with ejection fraction of 20-30%. #5 History of chronic atrial fibrillation anticoagulated with warfarin in the outpatient setting. #6 Previous history of GI bleed. #7 History of bladder cancer. #8 Chronic tobacco dependence. #9 Chronic obstructive pulmonary disease, currently inactive and stable. #10 History of alcohol use. Plan: The patient was seen and evaluated by Dr. Varela. He is currently stable from the pulmonary standpoint. He did receive a right-sided nephrostomy tube today per interventional radiology. He will need [place] [facility] [place] bladder cancer treatment was performed. We will continue to follow and make further recommendations based on his clinical status. I, the cosigning physician, performed a history & physical examination of the patient. Lungs sounds with crackles in the bilateral posterior bases. Maintaining good O2 saturations in the 90s on 2 L/m per nasal cannula. I discussed the assessment and plan of care with my nurse practitioner, Octavia Wu. I attest to the above note as dictated by her.
--- NOTE | 2018-06-25 12:10 | US ---
Ultrasound guidance for nephrostomy Ultrasound guidance utilized for right nephrostomy and attempted left nephrostomy. See dictated repor t nephrostomy same date. Ultrasound used with sterile technique. 2 intraoperative images document the procedure.
--- NOTE | 2018-06-25 12:18 | IR ---
EXAMINATION TYPE: IR nephrostomy, right nephrostomy, aborted left nephrostomy DATE OF EXAM: 06/25/2018 COMPARISON: CT 06/09/2018 HISTORY: Hydronephrosis, ureteral obstruction PROCEDURE: Maximal barrier technique was utilized. The skin overlying the right kidney was localized using ultrasound and the overlying skin prepped and draped. Ultrasound was utilized with sterile te chnique. Lidocaine used for local anesthesia. Skin malcolm was made with a scalpel. Access was gained under ultrasound with a 21-gauge needle to the right kidney. Urine returned in the hub of the needle . A 0.018 inch wire was advanced under fluoroscopy. The access site was dilated and subsequently an 8.5 Kinyarwanda catheter was advanced over the upsized wire in the renal pelvis and fixed in place. Ur ine returned in the hub of the catheter. Catheter was fixed to the skin with 2-0 silk and a sterile dressing was placed. The patient remained in stable condition without complication. Using similar technique attempted access was performed to the left kidney. Patient became restless an d requested to abort the procedure at this time. Hemostasis was achieved. The patient was discharged to observation. IMPRESSION: STATUS POST 8.5 BENGALI right NEPHROSTOMY TUBE PLACEMENT WITH ULTRASOUND AND FLUOROSCOPIC GUIDANCE. Aborted left nephrostomy tube placement. THIS PROCEDURE WAS PERFORMED BY THE UNDERSIGNED.
[2018-06-25] MEDS: SODIUM CHLORIDE 0.9% 1,000 ML IV SCH (13:44)
--- NOTE | 2018-06-25 14:54 | PN ---
PROGRESS NOTE DATE OF SERVICE: 06/25/2018 CHIEF COMPLAINT: GI bleed, anemia, atrial fibrillation, renal failure. HISTORY OF PRESENT ILLNESS: This gentleman is going down for a nephrostomy tube today. PHYSICAL EXAMINATION: Will be deferred. IMPRESSION: 1. Upper gastrointestinal bleed. 2. Blood loss anemia. 3. Atrial fibrillation. 4. Renal failure. 5. Obstructive ureteropathy. PLAN: Nephrostomy tube and follow kidney function after that. MMODL / IJN: [id number] /
--- NOTE | 2018-06-25 15:33 | P.PN ---
Progress Note - Text Progress Note Date: 06/25/18 The patient underwent placement of a right percutaneous nephrostomy catheter earlier today. He says that he is comfortable and urine draining from the nephrostomy catheter is clear. If his creatinine falls sufficiently it may not be necessary to place a left nephrostomy tube. His renal function will be reassessed after 2-3 days prior to making a decision.
[2018-06-25] MEDS: LACTATED RINGERS 1,000 ML IV SCH (16:47)
[2018-06-26] MEDS: PANTOPRAZOLE 40 MG TABLET PO SCH (06:01)
[2018-06-26] MEDS: CALCIUM ACETATE 667 MG CAP PO SCH ×3 (06:01→16:58)
[2018-06-26 06:44] LABS: Calcium 9.5 mg/dL (8.4-10.2); Potassium 5.2 mmol/L (3.5-5.1)
[2018-06-26] MEDS: SODIUM BICARBONATE TAB 650 MG TAB PO SCH ×2 (08:30→20:37)
[2018-06-26] MEDS: FUROSEMIDE 10 MG/ML 4 ML VIAL IV SCH (08:30)
[2018-06-26] MEDS: ISOSORBIDE MONONITRATE ER 30 MG TAB.ER.24H PO SCH (08:31)
[2018-06-26] MEDS: SPIRONOLACTONE 25 MG TAB PO SCH (08:31)
[2018-06-26] MEDS: FERROUS SULFATE 325 MG TAB PO SCH ×3 (08:31→20:36)
[2018-06-26] MEDS: METOPROLOL TARTRATE 25 MG TAB PO SCH ×2 (08:31→20:36)
--- NOTE | 2018-06-26 10:44 | P.PN ---
Subjective Progress Note Date: 06/26/18 Principal diagnosis: This is a 77-year-old male seen in consultation because of acute kidney injury and chronic kidney disease. He has had cystectomy in 2005, came in with fatigue and tiredness. He was found to have bilateral hydronephrosis and underwent a work and his nephrostomy on the right side yesterday 06/25/2018. He is making fair amount of urine which is somewhat dark and bloody in the back but in the tube draining the nephrostomy urine seems to be clear. He denies any pain. Appetite is fair no nausea vomiting no shortness of breath. He has an ostomy that's draining urine also. The cause of the bilateral [place] is not clear if there is any urethral anastomosis scar or other causes of obstruction. He denies any fever chills. History of present illness ;Recently he was admitted with an acute kidney injury on 05/04/2018 with creatinine of 2.5, His hemoglobin was 4.1 on 2017, his creatinine improved to 1.3 and then went up to 1.4 for the time of discharge. He was discharged home on 05/21/2018, his hemoglobin on discharge was 8.7.. His creatinine again went up to 2.87 on 06/09/2018 before his admission, and on admission on 06/16/2018, creatinine went up to 4.05 at the time of his admission. hemoglobin went down to 5.2 on admission. Objective - Vital Signs Vital signs: Vital Signs Temp 97.4 F L 06/26/18 08:36 Pulse 89 06/26/18 08:36 Resp 18 06/26/18 08:36 BP 115/67 06/26/18 08:36 Pulse Ox 97 06/26/18 08:36 Intake & Output 06/25/18 06/26/18 06/26/18 18:59 06:59 18:59 Intake Total 610 160 240 Output Total 2600 1950 Balance -1989 240 Weight 95.5 kg Intake: IV 410 160 Lactated Ringers 1,000 ml 210 160 @ 20 mls/hr IV .Q24H [facility] Rx#:[id number] Oral 200 240 Output: Drainage 1200 850 Right Posterior 1200 850 Urine 1400 1100 Other: Voiding Method Ileal Conduit (Right) Ileal Conduit (Right) Ileal Conduit ( Right) # Bowel Movements 1 On examination is awake alert oriented comfortable HEENT exam no JVP lymphadenopathy thyromegaly neck is supple no facial asymmetry Lungs are significant for bilateral end expiratory wheezing with good air entry bilaterally. Heart sounds are unremarkable for any murmur rub gallop Abdomen soft nontender urinary ostomy is draining from the right side. He has a percutaneous nephrostomy on the right side draining fair amount of urine. Extremity exam was no edema Neurologically awake alert oriented - Labs CBC & Chem 7: 06/24/18 20:17 06/26/18 05:56 Labs: Abnormal Lab Results - Last 24 Hours (Table) 06/26/18 Range/Units 05:56 Potassium 5.2 H (3.5-5.1) mmol/L BUN 63 H (9-20) mg/dL Creatinine 4.26 H (0.66-1.25) mg/dL Assessment and Plan Plan: Impression 1. Acute kidney injury secondary to combination of hypotension from acute anemia as well as from likely bilateral ureteral obstruction in the loop ileostomy draining urine. A computed tomography scan on 05/09/2018 showed bilateral hydronephrosis which was new compared with a computed tomography scan dated 01/03/2016. Creatinine went down from 4.79-4.26 this morning 2. Percutaneous nephrostomy 06/17/2018 with good urine output. 3. 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 in 2004 or 2005 but had not been seen back in follow- up in years 4. Cause of severe anemia is thought to be from GI bleeding, patient was on anticoagulations. 5. Anemia with hemoglobin 7.8 6. Mild hyperkalemia secondary to acute kidney injury and expected to improve Recommendation. 1. He needs to have the second percutaneous nephrostomy on the left side. 2. Discussed in detail with daughter and son-in-law and answered all questions. 3. His hemoglobin 7.8, watch his hemoglobin and may need more transfusion. 4. Maintain intake and output from both the ostomy and the percutaneous nephrostomy site separately
[2018-06-26] MEDS: SODIUM CHLORIDE 0.9% 1,000 ML IV SCH (12:59)
--- NOTE | 2018-06-26 14:19 | PN ---
PROGRESS NOTE DATE OF SERVICE: 06/26/2018. CHIEF COMPLAINT: Status post upper gastrointestinal bleed and blood-loss anemia with renal failure. HISTORY OF PRESENT ILLNESS: This gentleman had a right nephrostomy tube placed yesterday, which is draining well. The left one could not be placed because he became unstable in the OR. PHYSICAL EXAM: He is awake and alert. Chest is clear. Cardiac exam is unchanged, nephrostomy tube is draining blood-tinged urine. Abdomen is soft, nontender. IMPRESSION: 1. Blood loss anemia. 2. Status post upper gastrointestinal bleed. 3. Atrial fibrillation. 4. Chronic renal failure. 5. Ureteral obstruction. 6. History of carcinoma of the bladder. PLAN: The patient will be watched over the weekend. Sometime in the future, he will require the second nephrostomy tube. MMODL / IJN: [id number] /
--- NOTE | 2018-06-26 14:44 | P.PN ---
Subjective Progress Note Date: 06/26/18 The patient had a nephrostomy tube placed for hydronephrosis. Only one tube could be placed due to patient cooperation. The creatinine is down to 4.2. We' ll continue to observe this supposed decide whether that her nephrostomy tube will need to be placed. Objective - Vital Signs Vital signs: Vital Signs Temp 96 F L 06/26/18 11:35 Pulse 96 06/26/18 11:35 Resp 18 06/26/18 11:35 BP 101/59 06/26/18 11:35 Pulse Ox 90 L 06/26/18 11:35 Intake & Output 06/25/18 06/26/18 06/26/18 18:59 06:59 18:59 Intake Total 610 160 640 Output Total 2600 1950 1195 Balance -1989 Weight 95.5 kg Intake: IV 410 160 160 Lactated Ringers 1,000 ml 210 160 160 @ 20 mls/hr IV .Q24H [facility] Rx#:[id number] Oral 200 480 Output: Drainage 1200 850 670 Right Posterior 1200 850 670 Urine 1400 1100 525 Other: Voiding Method Ileal Conduit (Right) Ileal Conduit (Right) Ileal Conduit ( Right) # Bowel Movements 1 - Labs CBC & Chem 7: 06/24/18 20:17 06/26/18 05:56 Labs: Abnormal Lab Results - Last 24 Hours (Table) 06/26/18 Range/Units 05:56 Potassium 5.2 H (3.5-5.1) mmol/L BUN 63 H (9-20) mg/dL Creatinine 4.26 H (0.66-1.25) mg/dL
[2018-06-26] MEDS: LACTATED RINGERS 1,000 ML IV SCH (17:02)
[2018-06-27] MEDS: PANTOPRAZOLE 40 MG TABLET PO SCH (06:28)
[2018-06-27] MEDS: CALCIUM ACETATE 667 MG CAP PO SCH ×3 (06:28→17:07)
[2018-06-27 08:18] LABS: Calcium 9.5 mg/dL (8.4-10.2); Potassium 4.4 mmol/L (3.5-5.1)
[2018-06-27] MEDS: SODIUM BICARBONATE TAB 650 MG TAB PO SCH ×2 (09:25→21:15)
[2018-06-27] MEDS: METOPROLOL TARTRATE 25 MG TAB PO SCH ×2 (09:25→21:15)
[2018-06-27] MEDS: FUROSEMIDE 10 MG/ML 4 ML VIAL IV SCH (09:25)
[2018-06-27] MEDS: ISOSORBIDE MONONITRATE ER 30 MG TAB.ER.24H PO SCH (09:25)
[2018-06-27] MEDS: FERROUS SULFATE 325 MG TAB PO SCH ×3 (09:25→21:15)
[2018-06-27] MEDS: SPIRONOLACTONE 25 MG TAB PO SCH (09:26)
--- NOTE | 2018-06-27 12:40 | P.PN ---
Subjective Progress Note Date: 06/27/18 Principal diagnosis: This is a 77-year-old male seen in consultation because of acute kidney injury and chronic kidney disease. He has had cystectomy in 2005, came in with fatigue and tiredness. He was found to have bilateral hydronephrosis and underwent percutaneous nephrostomy on the right side 06/25/2018. He is making fair amount of urine which is somewhat dark and bloody, both in the ileostomy loop drainage from his abdomen as well as the percutaneous nephrostomy from the right side. His creatinine is improved. He continues to feel short of breath and has poor appetite. No nausea vomiting diarrhea no abdominal pain no fever chills. The cause of the bilateral [place] is not clear if there is any urethral anastomosis scar or other causes of obstruction. History of present illness ;Recently he was admitted with an acute kidney injury on 05/04/2018 with creatinine of 2.5, His hemoglobin was 4.1 on 2017, his creatinine improved to 1.3 and then went up to 1.4 for the time of discharge. He was discharged home on 05/21/2018, his hemoglobin on discharge was 8.7.. His creatinine again went up to 2.87 on 06/09/2018 before his admission, and on admission on 06/16/2018, creatinine went up to 4.05 at the time of his admission. hemoglobin went down to 5.2 on admission. Objective - Vital Signs Vital signs: Vital Signs Temp 96.9 F L 06/27/18 08:00 Pulse 111 H 06/27/18 08:00 Resp 18 06/27/18 08:00 BP 125/76 06/27/18 08:00 Pulse Ox 94 L 06/27/18 08:00 Intake & Output 06/26/18 06/27/18 06/27/18 18:59 06:59 18:59 Intake Total 1000 160 118 Output Total 2960 1350 Balance -1960 -1190 118 Weight 94 kg Intake: IV 280 160 Lactated Ringers 1,000 ml 280 160 @ 20 mls/hr IV .Q24H [facility] Rx#:[id number] Oral 720 118 Output: Drainage 1860 900 Right Posterior 1860 900 Urine 1100 450 Other: Voiding Method Ileal Conduit (Right) Ileal Conduit (Right) Ileal Conduit ( Right) Examination is awake alert oriented HEENT exam no JVP lymphadenopathy neck is supple no facial asymmetry Lungs clear to auscultation good air entry bilaterally Heart sounds unremarkable for any murmur rub gallop Abdomen soft nontender no bladder distention. No masses felt Extremity exam was no edema Neurologically awake alert oriented. - Labs CBC & Chem 7: 06/24/18 20:17 06/27/18 07:11 Labs: Abnormal Lab Results - Last 24 Hours (Table) 06/27/18 Range/Units 07:11 Carbon Dioxide 32 H (22-30) mmol/L BUN 53 H (9-20) mg/dL Creatinine 3.77 H (0.66-1.25) mg/dL Assessment and Plan Plan: Impression 1. Acute kidney injury secondary to combination of hypotension from acute anemia as well as from likely bilateral ureteral obstruction in the loop ileostomy draining urine. A computed tomography scan on 05/09/2018 showed bilateral hydronephrosis which was new compared with a computed tomography scan dated 01/03/2016. Status post percutaneous nephrostomy on the right side alone , good urine output from both ileal loop urostomy as well as from the percutaneous nephrostomy right side, Creatinine went down from 4.79-4.26 > 3.77 this morning 2. Percutaneous nephrostomy 06/25/2018 with good urine output. 3. 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 Cause of severe anemia is thought to be from GI bleeding, patient was on anticoagulations. 5. Anemia with hemoglobin 7.8 Recommendation. 1. He needs to have the second percutaneous nephrostomy on the left side. 2. Discontinue the Lasix and watch spontaneous diuresis post obstructive. 3. His hemoglobin 7.8, watch his hemoglobin and may need more transfusion. 4. Maintain intake and output from both the ostomy and the percutaneous nephrostomy site separately 5. Check iron saturation, start darbepoetin 40 mics every week
[2018-06-27] MEDS: SODIUM CHLORIDE 0.9% 1,000 ML IV SCH (14:23)
[2018-06-27] MEDS: LACTATED RINGERS 1,000 ML IV SCH (16:02)
--- NOTE | 2018-06-27 16:20 | PN ---
PROGRESS NOTE DATE OF SERVICE: 06/27/2018. I am covering for Dr. De Leon. This 77-year-old gentleman who was admitted with upper GI bleed also had renal problems. Patient had right nephrostomy tube placed yesterday. Left could not be done because of wheezing. The patient is closely monitored. Multiple consultants are following the patient closely. The creatinine has improved from 4.26 to 3.77. No chest pain. No palpitations. PHYSICAL EXAM: Alert and oriented x3. Pulse 112, blood pressure 123/73, respiration 18, temperature 97.8, pulse ox 94% on 2 L. HEENT: Conjunctivae normal. Oral mucosa moist. Neck is no jugular venous distention. No carotid bruit. No lymph node enlargement. CARDIOVASCULAR: S1, S2. RESPIRATORY: Breath sounds diminished in the bases. No rhonchi. ABDOMEN: Soft, nontender. NERVOUS SYSTEM: Nephrostomy tube present. LAB STUDIES: Hemoglobin 7.8, and creatinine is 3.77. ASSESSMENT: 1. Acute blood loss anemia and status post upper GI bleed. 2. Atrial fibrillation. 3. Acute on chronic renal failure. 4. Status post nephrostomy tube drainage. 5. Urethral obstruction. 6. History of carcinoma of the bladder. RECOMMENDATIONS AND DISCUSSION: I recommend to continue current medications and symptomatic treatment. Otherwise, continue with bronchodilators. Continue the rest of the medications. I would order CBC, BMP. Dr. De Leon will follow tomorrow. MMODL / IJN: [id number] /
[2018-06-28] MEDS: PANTOPRAZOLE 40 MG TABLET PO SCH (06:46)
[2018-06-28] MEDS: CALCIUM ACETATE 667 MG CAP PO SCH ×3 (06:46→18:10)
[2018-06-28 07:58] LABS: Calcium 9.2 mg/dL (8.4-10.2)
[2018-06-28 08:04] LABS: HCT 26.7 % (39.0-53.0); HGB 8.3 gm/dL (13.0-17.5); Hypochromasia Marked; MCH 28.9 pg (25.0-35.0); MCV 93.2 fL (80.0-100.0); Mean Platelet Volume 9.4; RBC 2.86 m/uL (4.30-5.90); RDW 15.9 % (11.5-15.5); WBC 5.5 k/uL (3.8-10.6)
[2018-06-28] MEDS: ISOSORBIDE MONONITRATE ER 30 MG TAB.ER.24H PO SCH (08:12)
[2018-06-28] MEDS: FERROUS SULFATE 325 MG TAB PO SCH ×3 (08:12→21:00)
[2018-06-28] MEDS: METOPROLOL TARTRATE 25 MG TAB PO SCH ×2 (08:12→21:00)
[2018-06-28] MEDS: SODIUM BICARBONATE TAB 650 MG TAB PO SCH ×2 (08:13→21:00)
[2018-06-28] MEDS: SPIRONOLACTONE 25 MG TAB PO SCH (08:13)
[2018-06-28 10:43] LABS: Eosinophils # (M) 0.17 k/uL (0-0.7); Lymphocytes # (M) 0.39 k/uL (1.0-4.8); Monocytes # (M) 0.77 k/uL (0-1.0); Neutrophils # (M) 4.29 k/uL (1.3-7.7); Neutrophils % (M) 78 %; Nucleated Red Blood Cells 0 /100 WBC (0-0); Total Cells Counted 200
[2018-06-28 10:45] LABS: Anisocytosis (M) Present
[2018-06-28 10:51] LABS: Platelet Count 87 k/uL (150-450)
[2018-06-28] MEDS: SODIUM CHLORIDE 0.9% 1,000 ML IV SCH (15:37)
--- NOTE | 2018-06-28 17:37 | PN ---
PROGRESS NOTE DATE OF SERVICE: 06/28/2018. HISTORY: The patient is seen for followup for acute kidney injury, which is mainly obstructive. The patient has a right nephrostomy tube. He has urine output from the Rocha catheter as well as a nephrostomy tube, both of which are bloody; however, renal function has been improving with serum creatinine now down to 3.32 from 4.7. Currently, patient states he feels fairly well. He has been complaining of mild shortness of breath. He denies any chest pains. There is no nausea, vomiting or abdominal pain. PHYSICAL EXAMINATION: Blood pressure this morning 141/67, heart rate 87 per minute. He is afebrile. Examination of the heart S1, S2. Examination lungs, bilateral breath sounds are heard. Decreased breath sounds at bases. Abdomen is soft, nontender. Examination of lower extremity shows no evidence of edema RET[employer] M[employer]GAGE B[employer]ER exam is grossly intact. LABS: Sodium 145, potassium 4.0, chloride 105, BUN 47, serum creatinine 3.32, hemoglobin 8.3 g/dL. ASSESSMENT: 1. Acute kidney injury, mainly obstructive in nature, status post right nephrostomy tube. There is bilateral hydronephrosis noted. The patient will probably have a left nephrostomy tube as well. He did have hypotension and acute anemia, which contributed to his acute kidney injury. 2. History of radical cystoprostatectomy and ileal conduit urinary diversion and . 3. Anemia with no active bleeding noted. Currently, the patient is maintained on Aranesp. 4. Hyperphosphatemia, currently on PhosLo. 5. Metabolic acidosis. Continue with sodium bicarbonate. PLAN: Repeat labs in a.m. The patient should have the left nephrostomy as well, whether it will be inpatient or outpatient will depend on urology. MMODL / IJN: [id number] /
[2018-06-28 18:19] LABS: Iron Saturation 10.62 (15.00-50.00)
[2018-06-28] MEDS: LACTATED RINGERS 1,000 ML IV SCH (20:50)
--- NOTE | 2018-06-28 21:34 | PN ---
PROGRESS NOTE CHIEF COMPLAINT: Renal failure and GI bleed. HISTORY OF PRESENT ILLNESS: This gentleman is doing is doing fairly well and is stable. He still has quite bloody urine coming from the nephrostomy tube. Renal function is improving. PHYSICAL EXAM: He is awake and alert. Color is adequate and not as pale as he has been. Chest demonstrates occasional wheezes and rales. Cardiac exam is normal. Abdomen is soft. IMPRESSION: 1. Status post upper gastrointestinal bleed. 2. Renal failure. 3. Obstructive ureteropathy. 4. History of carcinoma of the bladder. PLAN: Continue with current program. Await to see if left-sided nephrostomy tube will be placed. MMODL / IJN: [id number] /
[2018-06-29 06:17] LABS: HCT 27.3 % (39.0-53.0); HGB 8.4 gm/dL (13.0-17.5); Hypochromasia Marked; MCH 28.9 pg (25.0-35.0); MCHC 30.9 g/dL (31.0-37.0); MCV 93.3 fL (80.0-100.0); Mean Platelet Volume 11.6; Poikilocytosis Slight; RBC 2.92 m/uL (4.30-5.90); RDW 15.8 % (11.5-15.5)
[2018-06-29 06:30] LABS: Calcium 9.5 mg/dL (8.4-10.2); Magnesium 1.4 mg/dL (1.6-2.3); Potassium 4.1 mmol/L (3.5-5.1)
[2018-06-29] MEDS ORDERED: Magnesium Replacement Protocol 1 EACH MISC MISCELLANE PRN (06:50)
[2018-06-29] MEDS: PANTOPRAZOLE 40 MG TABLET PO SCH (07:05)
[2018-06-29] MEDS: CALCIUM ACETATE 667 MG CAP PO SCH ×3 (07:06→17:44)
[2018-06-29 07:23] LABS: Eosinophils # (M) 0.06 k/uL (0-0.7); Lymphocytes # (M) 0.54 k/uL (1.0-4.8); Monocytes # (M) 1.08 k/uL (0-1.0); Neutrophils # (M) 4.32 k/uL (1.3-7.7); Neutrophils % (M) 72 %; Nucleated Red Blood Cells 0 /100 WBC (0-0); Total Cells Counted 100
[2018-06-29 07:24] LABS: Large Platelets Present; Platelet Count 99 k/uL (150-450)
[2018-06-29] MEDS: ISOSORBIDE MONONITRATE ER 30 MG TAB.ER.24H PO SCH (08:20)
[2018-06-29] MEDS: FERROUS SULFATE 325 MG TAB PO SCH ×3 (08:20→20:46)
[2018-06-29] MEDS: SPIRONOLACTONE 25 MG TAB PO SCH (08:21)
[2018-06-29] MEDS: METOPROLOL TARTRATE 25 MG TAB PO SCH ×2 (08:21→20:45)
[2018-06-29] MEDS: SODIUM BICARBONATE TAB 650 MG TAB PO SCH ×2 (08:21→20:46)
[2018-06-29] MEDS: MAGNESIUM SULFATE-D5W PMX 1 GM in DEXTROSE/WATER 1 100ML.BAG IVPB SCH ×3 (08:21→11:08)
--- NOTE | 2018-06-29 11:29 | P.PN ---
Progress Note - Text Progress Note Date: 06/29/18 The patient continues to improve following placement of the right percutaneous nephrostomy catheter. His urine draining from the nephrostomy is clear. BUN/ creatinine have improved to 42/3.14. Hemoglobin is stable at 8.4. The patient said that he would be willing to have a right percutaneous nephrostomy tube placed during this hospitalization. Hopefully this can be done in the next day or 2. He is aware that he will eventually need to be set up with an appointment at [facility] for treatment of the ureteroileal obstruction.
[2018-06-29] MEDS: SODIUM FERRIC GLUCONAT-SUCROSE 125 MG in SODIUM CHLORIDE 0.9% 100 ML IVPB SCH (12:06)
[2018-06-29 14:59] VITALS: BMI 26.7
[2018-06-29] MEDS: SODIUM CHLORIDE 0.9% 1,000 ML IV SCH (15:32)
[2018-06-29] MEDS: LACTATED RINGERS 1,000 ML IV SCH (16:26)
[2018-06-29] MEDS: IPRATROPIUM-ALBUTEROL 3 ML NEB INHALATION PRN (19:41)
--- NOTE | 2018-06-29 21:29 | PN ---
PROGRESS NOTE Patient is seen for followup for acute kidney injury and obstructive uropathy. Renal function continues to improve. Patient is being followed by Urology and plans for left nephrostomy tube to be placed in the next day or so. PHYSICAL EXAMINATION: On examination today, blood pressure was 105/67, heart rate of 88 per minute. Patient is afebrile. Examination of the heart S1, S2. Examination of lungs bilateral breath sounds are heard. Abdomen is soft, nontender. Examination of lower extremities shows no evidence of edema. ASSISTANT [employer] SERVICE DIRECTOR exam is grossly intact. LABS SHOW: Sodium 142, potassium 4.1, serum creatinine down to 3.1, hemoglobin 8.4 g/dL, iron saturation was 10.62 yesterday. ASSESSMENT: 1. Acute kidney injury, obstructive uropathy, status post right nephrostomy tube. The patient will be having a left nephrostomy tube placed on this admission as well. 2. Metabolic acidosis. Maintained on sodium bicarb. 3. Hyperphosphatemia, currently on PhosLo. We will recheck level and consider discontinuation of PhosLo. 4. Anemia, maintained on Aranesp. 5. History of bladder cancer status post radical cystoprostatectomy with ileal conduit urinary diversion at [facility] currently with bilateral hydronephrosis status post right nephrostomy tube. PLAN: Continue to encourage increased oral intake. Continue with the sodium bicarb. Patient's IV fluids have been discontinued. I will continue with the IV iron as well and check a phosphorus level tomorrow morning. MMODL / IJN: [id number] /
[2018-06-30] MEDS: CALCIUM ACETATE 667 MG CAP PO SCH ×3 (06:35→18:46)
[2018-06-30] MEDS: PANTOPRAZOLE 40 MG TABLET PO SCH (06:35)
[2018-06-30 06:56] LABS: Magnesium 1.9 mg/dL (1.6-2.3); Phosphorus 2.7 mg/dL (2.5-4.5)
[2018-06-30] MEDS: ISOSORBIDE MONONITRATE ER 30 MG TAB.ER.24H PO SCH (09:37)
[2018-06-30] MEDS: FERROUS SULFATE 325 MG TAB PO SCH ×3 (09:37→20:19)
[2018-06-30] MEDS: METOPROLOL TARTRATE 25 MG TAB PO SCH ×2 (09:37→20:19)
[2018-06-30] MEDS: SODIUM BICARBONATE TAB 650 MG TAB PO SCH ×2 (09:38→20:19)
[2018-06-30] MEDS: SPIRONOLACTONE 25 MG TAB PO SCH (09:38)
[2018-06-30] MEDS: SODIUM FERRIC GLUCONAT-SUCROSE 125 MG in SODIUM CHLORIDE 0.9% 100 ML IVPB SCH (11:04)
[2018-06-30] MEDS: LACTATED RINGERS 1,000 ML IV SCH (18:41)
[2018-06-30] MEDS: SODIUM CHLORIDE 0.9% 1,000 ML IV SCH (18:45)
--- NOTE | 2018-06-30 19:00 | PN ---
PROGRESS NOTE DATE OF SERVICE: 06/29/2018 CHIEF COMPLAINT: Upper GI bleed, blood loss anemia, renal failure with obstructive ureterostomy. HISTORY OF PRESENT ILLNESS: This gentleman is doing well. BUN and creatinine are dropping slowly. Hemoglobin is rising slowly. There is a thought that he may receive a second nephrostomy tube before he leaves the hospital. PHYSICAL EXAMINATION: He is in atrial fibrillation. The chest is clear. He is awake and alert. Cardiac exam is normal except for the atrial fibrillation. IMPRESSION: 1. Upper gastrointestinal bleed with blood loss anemia. 2. Renal failure. PLAN: Continue current management and wait to see if he will undergo placement of a left nephrostomy tube. MMODL / IJN: [id number] /
--- NOTE | 2018-06-30 19:20 | PN ---
PROGRESS NOTE Patient is seen for followup for acute kidney injury. The patient's renal function has been improving. He has a right nephrostomy tube. He needs to have a left nephrostomy tube and currently we are awaiting the procedure. Overall, patient states he feels well, wants to go home. He has been eating good. EXAMINATION: This morning blood pressure was 132/73, heart rate 94 per minute. He is afebrile. Examination of the heart S1, S2. Examination of the lungs bilateral breath sounds are heard. Abdomen is soft, nontender. Examination of the lower extremities shows no evidence of edema. HOOP BENDER TANK exam is grossly intact. LABS SHOW: Labs are not available from today. Serum creatinine was 3.1 yesterday. ASSESSMENT: 1. Acute kidney injury, obstructive uropathy, status post right nephrostomy tube with improvement in renal function. Patient is scheduled for a left nephrostomy tube. This will be done possibly today. 2. Metabolic acidosis. Maintained on sodium bicarb and currently improved. 3. Hyperphosphatemia. Maintained on PhosLo. Serum phosphorus is 2.7. I will discontinue the PhosLo. 4. History of bladder cancer status post radical cystoprostatectomy with ileal conduit urinary diversion at the [facility], currently with bilateral hydronephrosis status post right nephrostomy tube and to be scheduled for left nephrostomy tube this admission. 5. Anemia with significant iron deficiency, maintained on Aranesp and currently receiving IV iron as well. PLAN: Continue IV iron. Check labs tomorrow. MMODL / IJN: [id number] /
--- NOTE | 2018-06-30 19:33 | PN ---
PROGRESS NOTE DATE OF SERVICE: 06/30/2018 CHIEF COMPLAINT: Renal failure and anemia after blood loss. HISTORY OF PRESENT ILLNESS: This gentleman is having no trouble today. He is not clear if or when it will be done, but he is waiting to see if the left nephrostomy tube will be inserted. PHYSICAL EXAMINATION: Otherwise unchanged. He remains slightly pale. Cardiac exam is unchanged. Chest is clear. Abdomen is soft. IMPRESSION: 1. Status post upper gastrointestinal bleed with hypovolemic shock. 2. Renal failure. 3. Atrial fibrillation. 4. Congestive heart failure. PLAN: Await second nephrostomy tube, if it is to be done. MMODL / IJN: [id number] /
[2018-06-30] MEDS: IPRATROPIUM-ALBUTEROL 3 ML NEB INHALATION PRN (19:55)
[2018-07-01] MEDS: PANTOPRAZOLE 40 MG TABLET PO SCH (06:20)
[2018-07-01] MEDS: CALCIUM ACETATE 667 MG CAP PO SCH (06:20)
[2018-07-01] MEDS: IPRATROPIUM-ALBUTEROL 3 ML NEB INHALATION PRN ×2 (07:28→21:42)
[2018-07-01] MEDS: METOPROLOL TARTRATE 25 MG TAB PO SCH ×2 (07:47→21:17)
[2018-07-01] MEDS: ISOSORBIDE MONONITRATE ER 30 MG TAB.ER.24H PO SCH (07:48)
[2018-07-01] MEDS: SODIUM BICARBONATE TAB 650 MG TAB PO SCH (07:48)
[2018-07-01] MEDS: FERROUS SULFATE 325 MG TAB PO SCH ×3 (07:49→21:17)
[2018-07-01] MEDS ORDERED: LEVOFLOXACIN 500MG-D5W PMX 500 MG in DEXTROSE/WATER 1 100ML.BAG IVPB STA (08:20)
[2018-07-01] MEDS ORDERED: LIDOCAINE 1% (PF) 10MG/ML VIAL SQ ONE (09:53)
[2018-07-01] MEDS ORDERED: fentaNYL (PF) 50 MCG/ML 2 ML AMP IVP ONE (09:58)
[2018-07-01] MEDS ORDERED: SODIUM CHLORIDE 0.9% 500 ML IV ONE (09:59)
[2018-07-01] MEDS ORDERED: IOPAMIDOL-250 50ML BTL IV ONE (10:01)
--- NOTE | 2018-07-01 10:07 | CDI ---
Last Revision, August 2017 Documentation Clarification Form Date: 07/01/18 From: Ciarra Nj RN Admit Date: 06/16/2018 5:05:00 PM Patient Name: Baudilio Putnam Visit Number: [id number] ATTENTION: The Clinical Documentation Specialists (CDI) and [facility] Coding Staff appreciate your assistance in clarifying documentation. Please respond to the clarification below the line at the bottom and electronically sign. The CDI & [facility] Coding staff will review the response and follow-up if needed. Please note: Queries are made part of the Legal Health Record. If you have any questions, please contact the author of this message via ITS. Dr. Noah Karimi MD, Can you please render your opinion on the following documentation? Pt. admitted with GI bleed, anemia and Acute renal failure. History/Risk Factors: a fib, bladder and prostate cancer (urostomy), hemorrhoids , [place], x smoker Renal Failure is documented in the chart from 06/16 - 06/30 Kidney failure is documented in the PN 06/18 and 06/23. Clinical Indicators: On Admission: BUN 74, CR. 4.05 GFR 14 Current BUN 42, CR 3.14, GFR 18 Treatment: Monitor labs Patients medications include: Phoslo IVF .9 @ 25ml/hr In order to capture the severity of condition, please clarify if the condition signifies: CKD Stage 4 (GFR 15-29) CKD Stage 5 (GFR <15) ESRD Other, please specify Unable to determine MTDD
--- NOTE | 2018-07-01 10:18 | CT ---
EXAMINATION TYPE: CT Guided and fluoroscopically guided left percutaneous nephrostomy tube insertion DATE OF EXAM: 07/01/2018 COMPARISON: CT scan 06/09/2018 HISTORY: Previous attempted left nephrostomy tube was unsuccessful. A consult for reattempt at left n ephrostomy tube insertion. Procedure had been discussed with the patient risks, benefits, alternatives, were discussed and any questions were answered. Informed consent was obtained. A procedural antibiotics administered. The patient was in a semiprone position prepped and draped on the OR table in the usual sterile fas ion. Utilizing a 15 cm length Chiba needle a single pass was made into a lower pole posterior calyx under CT guidance. There is free spillage of urine. Repeat imaging demonstrated ideal placement of t he needle. An 0.018 guidewire is passed through the needle and the patient was taken to the CVL lab w here there was conversion to a 0.035 system under fluoroscopic guidance was performed with passage o f a guidewire into the ureter utilizing a directional catheter. Serial dilation 8 Qatari and subseque nt placement of an 8 [place] drainage catheter. Repeat imaging demonstrated ideal placement of the cat heter. All elements of maximal barrier and sterile technique utilized. IMPRESSION: 1. Successful left percutaneous nephrostomy tube under CT and fluoroscopic guidance..
--- NOTE | 2018-07-01 11:09 | P.PN ---
Subjective Patient is seen in follow-up for acute kidney injury. Renal function is improving with creatinine down to 3.14 as of June 29. No labs since. Patient had a right-sided nephrostomy tube placed earlier this admission and underwent a left-sided nephrostomy tube placement this morning. Patient denies any active complaints. Oral intake is good. No vomiting or diarrhea. Vital signs are stable. General: The patient appeared well nourished and normally developed. HEENT: Head exam is unremarkable. Neck is without jugular venous distension. LUNGS: Lungs are clear to auscultation and percussion. Breath sounds decreased. HEART: Rate and Rhythm are regular. First and second heart sounds normal. No murmurs, rubs or gallops. ABDOMEN: Abdominal exam reveals normal bowel sounds. Non-tender and non- distended. No evidence of peritonitis. EXTREMITITES: Trace edema. Objective - Vital Signs Vital signs: Vital Signs Temp 97.5 F L 07/01/18 08:00 Pulse 90 07/01/18 09:45 Resp 18 07/01/18 09:45 BP 88/53 07/01/18 09:45 Pulse Ox 93 L 07/01/18 09:30 Intake & Output 06/30/18 07/01/18 07/01/18 18:59 06:59 18:59 Intake Total 160 100 Output Total 1900 400 450 Balance -1900 -240 -350 Weight 92.4 kg Intake: IV 160 100 Lactated Ringers 1,000 ml 160 @ 20 mls/hr IV .Q24H [facility] Rx#:[id number] Output: Drainage 850 400 150 Right Posterior 850 400 150 Urine 1050 300 Right Lower Abdomen 300 Other: Voiding Method Ileal Conduit (Right) Ileal Conduit (Right) Ileal Conduit ( Right) - Labs CBC & Chem 7: 06/29/18 05:22 06/29/18 05:22 Assessment and Plan Plan: Assessment: 1. Nonoliguric acute kidney injury secondary to obstructive uropathy. Renal function improving with creatinine down to 3.14 as of June 29. Patient had a left-sided nephrostomy tube placed this morning. He also underwent a right- sided nephrostomy tube placement earlier this admission. Creatinine was 1.2 in April 2018. 2. Metabolic acidosis secondary to acute kidney injury. Improved. 3. Hyperphosphatemia secondary to acute kidney injury maintained on PhosLo. Phosphorus level II.7 today. 4. Acute blood loss anemia secondary to Coumadin toxicity status post 4 units blood transfusion. GI following. The patient has a history of duodenal ulcer. Patient also received a dose of IV DDAVP on June 17. C-scope 06/22 - no obvious source of bleeding noted. Iron deficiency noted. 5. Systolic CHF with ejection fraction of 25-30% with moderate mitral and tricuspid regurgitation. 6. Hypomagnesemia from GI losses. Improved post replacement. 7. Fluid overload. Improved. 8. History of bladder cancer status post radical cystoprostatectomy with ileal conduit done at [facility]. Plan: Continue with IV iron. Maintain Aranesp. Avoid nephrotoxins. Discontinue oral sodium bicarbonate. Discontinue PhosLo. Continue to monitor renal function and urine output. Decrease Aldactone to 12.5 mg daily as blood pressure on the lower side.
[2018-07-01] MEDS: SODIUM FERRIC GLUCONAT-SUCROSE 125 MG in SODIUM CHLORIDE 0.9% 100 ML IVPB SCH (12:15)
[2018-07-01 12:24] LABS: Potassium 4.1 mmol/L (3.5-5.1)
--- NOTE | 2018-07-01 13:21 | IR ---
EXAMINATION TYPE: IR nephrostomy DATE OF EXAM: 07/01/2018 COMPARISON: NONE HISTORY: Left hydronephrosis See dictation CT nephrostomy tube.
[2018-07-01] MEDS: SODIUM CHLORIDE 0.9% 1,000 ML IV SCH ×2 (17:45→21:17)
[2018-07-01] MEDS: LACTATED RINGERS 1,000 ML IV SCH (17:46)
[2018-07-01] MEDS: SPIRONOLACTONE 25 MG TAB PO SCH (17:47)
--- NOTE | 2018-07-01 18:10 | PN ---
PROGRESS NOTE DATE OF SERVICE: 07/01/2018 CHIEF COMPLAINT: Blood loss anemia. HISTORY OF PRESENT ILLNESS: This gentleman has been stable and there has been no interval change. We are waiting for the possibility of the second nephrostomy tube placement. PHYSICAL EXAMINATION: He is awake and alert. Chest is clear. Cardiac exam is unchanged with atrial fibrillation. The abdomen is soft. IMPRESSION: 1. Upper gastrointestinal bleed. 2. Blood loss anemia. 3. Renal failure. 4. Ureteral obstruction. PLAN: No change in program. Wait to see if he will be undergoing another procedure. MMODL / IJN: [id number] /
[2018-07-01] MEDS: DARBEPOETIN ALFA 40 MCG/0.4 ML SYRINGE SQ SCH (18:36)
[2018-07-02 06:58] LABS: Potassium 3.7 mmol/L (3.5-5.1)
[2018-07-02] MEDS: METOPROLOL TARTRATE 25 MG TAB PO SCH ×2 (08:27→20:18)
[2018-07-02] MEDS: PANTOPRAZOLE 40 MG TABLET PO SCH (08:27)
[2018-07-02] MEDS: ISOSORBIDE MONONITRATE ER 30 MG TAB.ER.24H PO SCH (08:27)
[2018-07-02] MEDS: FERROUS SULFATE 325 MG TAB PO SCH ×3 (08:27→20:19)
[2018-07-02] MEDS: SPIRONOLACTONE 25 MG TAB PO SCH (08:28)
--- NOTE | 2018-07-02 11:35 | PN ---
PROGRESS NOTE Patient is seen for followup for acute kidney injury, which is mainly obstructive in nature. Patient had his left your nephrostomy placed yesterday. He currently has good urine output from both the nephrostomies. Renal function continues to improve. Creatinine is down to 2.38 today. PHYSICAL EXAMINATION: On examination, patient is comfortable. Blood pressure is 100/51, heart rate of 96 per minute. He is afebrile. HEENT: Atraumatic, normocephalic. Pupils are equal and round. JVP is not elevated. EXAMINATION OF THE HEART: S1, S2. EXAMINATION OF THE LUNGS: Decreased breath sounds at bases. No crackles or wheezing is heard. Abdomen is soft, nontender. Examination of lower extremities shows no significant edema. LABS: Labs show sodium 141, potassium 3.7, BUN 31, serum creatinine 2.38. Hemoglobin was 8.4 on 06/29. Iron saturation 10.6. ASSESSMENT: 1. Acute kidney injury, obstructive uropathy, currently status post bilateral nephrostomy with left nephrostomy done yesterday with good urine output. Patient is eating well. He denies any other significant complaints. He is not maintained on any IV fluids. 2. Iron deficiency, status post IV iron. Maintained on Aranesp. 3. Hyperphosphatemia, status post discontinuation of phosphate binders as phosphorus was low. 4. History of bladder cancer, status post radical cystoprostatectomy with ileal conduit urinary diversion at [facility] [place], who presented with bilateral hydronephrosis status post bilateral nephrostomies with left nephrostomy done yesterday. 5. Metabolic acidosis, currently improved. PLAN: Patient is stable for discharge from Nephrology standpoint. MMODL / IJN: [id number] /
[2018-07-02 11:46] LABS: Glucose,Whole Blood 138 mg/dL (75-99)
[2018-07-02] MEDS: IPRATROPIUM-ALBUTEROL 3 ML NEB INHALATION PRN ×2 (13:18→20:36)
--- NOTE | 2018-07-02 15:01 | PN ---
PROGRESS NOTE DATE OF SERVICE: 07/02/2018 CHIEF COMPLAINT: Upper GI bleed, blood loss anemia, hypovolemic shock and renal failure. HISTORY OF PRESENT ILLNESS: This gentleman is doing well and the left nephrostomy tube was placed. He has been cleared for discharge by Nephrology. It is not clear if he will be going home or to a half-way. PHYSICAL EXAM: He remains slightly pale. He is oriented and alert. Chest is clear. The cardiac exam is normal and the abdomen is soft, nontender. IMPRESSION: 1. Upper gastrointestinal hemorrhage. 2. Hypovolemic shock. 3. Blood loss anemia. 4. Obstructive ureteropathy. 5. Renal failure. 6. Atrial fibrillation. PLAN: Home anytime. Discharge planning has been contacted. He can either go home or to a half-way. MMODL / IJN: [id number] /
[2018-07-02] MEDS: LACTATED RINGERS 1,000 ML IV SCH (16:20)
[2018-07-03 06:24] LABS: Basophils % (A) 0 %; Eosinophils # (A) 0.1 k/uL (0-0.7); Eosinophils % (A) 1 %; HCT 23.3 % (39.0-53.0); HGB 7.6 gm/dL (13.0-17.5); Hypochromasia Marked; Lymphocytes # (A) 0.8 k/uL (1.0-4.8); Lymphocytes % (A) 17 %; MCH 29.5 pg (25.0-35.0); MCHC 32.5 g/dL (31.0-37.0); MCV 90.8 fL (80.0-100.0); Monocytes # (A) 0.8 k/uL (0-1.0); Monocytes % (A) 16 %; Neutrophils % (A) 62 %; Poikilocytosis Slight; RBC 2.57 m/uL (4.30-5.90); WBC 4.9 k/uL (3.8-10.6)
[2018-07-03 06:32] LABS: Platelet Count 88 k/uL (150-450)
[2018-07-03] MEDS: PANTOPRAZOLE 40 MG TABLET PO SCH (06:35)
[2018-07-03 06:38] LABS: INR 1.1 (<1.2); Prothrombin Time 10.7 sec (9.0-12.0)
[2018-07-03] MEDS: IPRATROPIUM-ALBUTEROL 3 ML NEB INHALATION PRN (07:58)
[2018-07-03] MEDS: ISOSORBIDE MONONITRATE ER 30 MG TAB.ER.24H PO SCH (08:39)
[2018-07-03] MEDS: METOPROLOL TARTRATE 25 MG TAB PO SCH ×2 (08:39→22:27)
[2018-07-03] MEDS: FERROUS SULFATE 325 MG TAB PO SCH ×3 (08:39→22:27)
[2018-07-03] MEDS: SPIRONOLACTONE 25 MG TAB PO SCH (08:40)
--- NOTE | 2018-07-03 12:57 | PN ---
PROGRESS NOTE Patient is seen for followup for acute kidney injury. He is currently stable. He has had good output from bilateral nephrostomies. Patient is awaiting discharge planning. On examination today, blood pressure was 106/59, heart rate 100 per minute. He is afebrile. EXAMINATION OF THE HEART: S1, S2. EXAMINATION OF LUNGS: Bilateral breath sounds are heard. ABDOMEN: Soft, non-tender. Examination of lower extremities shows no significant edema. Bilateral nephrostomies are noted. Labs are not available from today. ASSESSMENT: 1. Acute kidney injury, obstructive uropathy, status post bilateral nephrostomies. Patient needs to be set up for followup as outpatient with Urology. 2. Iron deficiency, status post IV iron. 3. Anemia, maintained on Aranesp. 4. Hyperphosphatemia, currently off of PhosLo. 5. History of bladder cancer, status post radical cystoprostatectomy with ileal conduit urinary diversion at [facility]. 6. Metabolic acidosis, currently resolved. PLAN: Okay for discharge from nephrology standpoint. Patient needs to be set up for followup as outpatient with Urology. MMODL / IJN: [id number] /
--- NOTE | 2018-07-03 13:54 | PN ---
PROGRESS NOTE CHIEF COMPLAINT: Blood loss anemia. HISTORY OF PRESENT ILLNESS: This gentleman is doing fairly well. Nephrostomy tubes are in place. Kidney function is improving slowly. However, his hemoglobin is dropping again. He continues to have bloody urine coming from his ileal conduit. PHYSICAL EXAMINATION: He remains slightly pale. Cardiac exam is unchanged. Chest is clear. IMPRESSION: 1. Blood loss anemia. 2. Renal failure. PLAN: Hold discharge until hemoglobin is stable. MMODL / IJN: [id number] /
[2018-07-03] MEDS: LACTATED RINGERS 1,000 ML IV SCH (16:31)
[2018-07-03] MEDS: SODIUM CHLORIDE 0.9% 1,000 ML IV SCH (16:31)
[2018-07-04] MEDS: SPIRONOLACTONE 25 MG TAB PO SCH (07:59)
[2018-07-04] MEDS: PANTOPRAZOLE 40 MG TABLET PO SCH (07:59)
[2018-07-04] MEDS: METOPROLOL TARTRATE 25 MG TAB PO SCH ×2 (08:00→20:55)
[2018-07-04] MEDS: FERROUS SULFATE 325 MG TAB PO SCH ×3 (08:00→20:55)
[2018-07-04] MEDS: ISOSORBIDE MONONITRATE ER 30 MG TAB.ER.24H PO SCH (08:00)
[2018-07-04 11:46] LABS: Calcium 8.8 mg/dL (8.4-10.2); Potassium 3.6 mmol/L (3.5-5.1)
--- NOTE | 2018-07-04 13:40 | PN ---
PROGRESS NOTE CHIEF COMPLAINT: Status post upper GI bleed, blood loss anemia and renal failure. HISTORY OF PRESENT ILLNESS: This gentleman continues to do fairly well. His hemoglobin seems to have stabilized. We are awaiting a discharge plan. PHYSICAL EXAM: Color is fairly good and. Chest is clear. Cardiac exam is unchanged. Abdomen is soft, nontender. There is very little blood medially in the ileal loop bag. IMPRESSION: 1. Status post massive upper gastrointestinal hemorrhage with hypovolemic shock. 2. Renal failure. 3. Blood loss anemia. PLAN: Continue to follow and work on a discharge plan soon. MMODL / IJN: [id number] /
[2018-07-04] MEDS: SODIUM CHLORIDE 0.9% 1,000 ML IV SCH (15:21)
--- NOTE | 2018-07-04 17:16 | PN ---
PROGRESS NOTE The patient is seen for followup for acute kidney injury which was mainly obstructive in nature. The patient has had bilateral nephrostomies. He has had good urine output. Renal function is improved significantly with creatinine down to 1.75 from around 4.7 previously. The patient denies any complaints. He will most likely be discharged tomorrow. PHYSICAL EXAMINATION: Blood pressure is 120/78, heart rate of 88 per minute. He is afebrile. Examination of the heart: S1, S2. Examination of the lungs: Bilateral breath sounds are heard. Abdomen is soft, nontender. Examination lower extremities shows no significant edema. LABS: Show sodium 143, potassium 3.6, BUN 20, serum creatinine 1.75. ASSESSMENT: 1. Acute kidney injury, obstructive uropathy status post bilateral nephrostomies. The patient needs to follow up as outpatient with Urology. 2. History of bladder cancer with radical cystoprostatectomy with ileal conduit urostomy. 3. Anemia with no active bleeding noted, maintained on Aranesp. PLAN: Okay for discharge. Follow up as outpatient with Urology and Nephrology. MMODL / IJN: [id number] /
[2018-07-05] MEDS: IPRATROPIUM-ALBUTEROL 3 ML NEB INHALATION PRN ×3 (07:16→20:31)
[2018-07-05] MEDS: PANTOPRAZOLE 40 MG TABLET PO SCH (08:04)
[2018-07-05] MEDS: ISOSORBIDE MONONITRATE ER 30 MG TAB.ER.24H PO SCH (08:05)
[2018-07-05] MEDS: SPIRONOLACTONE 25 MG TAB PO SCH (08:05)
[2018-07-05] MEDS: METOPROLOL TARTRATE 25 MG TAB PO SCH ×2 (08:05→20:21)
[2018-07-05] MEDS: FERROUS SULFATE 325 MG TAB PO SCH ×3 (08:05→21:44)
--- NOTE | 2018-07-05 08:48 | IR ---
EXAMINATION TYPE: IR nephrostomy DATE OF EXAM: 06/30/2018 COMPARISON: NONE HISTORY: Left nephrostomy tube request TECHNIQUE: Fluoroscopy. FINDINGS: See dictation for CT-guided nephrostomy tube IMPRESSION: As Above.
[2018-07-05 10:57] LABS: Anisocytosis Slight; HCT 23.7 % (39.0-53.0); HGB 7.6 gm/dL (13.0-17.5); Hypochromasia Marked; MCHC 32.2 g/dL (31.0-37.0); MCV 90.3 fL (80.0-100.0); Mean Platelet Volume 10.4; Platelet Count 104 k/uL (150-450); Poikilocytosis Slight; RBC 2.63 m/uL (4.30-5.90); RDW 16.1 % (11.5-15.5); WBC 4.1 k/uL (3.8-10.6)
[2018-07-05 12:38] LABS: Eosinophils # (M) 0.04 k/uL (0-0.7); Lymphocytes # (M) 0.37 k/uL (1.0-4.8); Neutrophils # (M) 2.99 k/uL (1.3-7.7); Neutrophils % (M) 73 %; Nucleated Red Blood Cells 0 /100 WBC (0-0); Total Cells Counted 100
[2018-07-05] MEDS: SODIUM CHLORIDE 0.9% 1,000 ML IV SCH (15:04)
--- NOTE | 2018-07-05 16:41 | PN ---
PROGRESS NOTE DATE OF SERVICE: 07/05/2018 CHIEF COMPLAINT: Status post hypovolemic shock and GI bleed. HISTORY OF PRESENT ILLNESS: This gentleman is doing well. He is doing better each day. We just need to work on a discharge plan. It is not clear if he is going home with his daughter or to a custodial for rehab. PHYSICAL EXAMINATION: He is awake, alert. Color is improving. Chest is clear. Cardiac exam is unchanged. There is no blood in the ileal loop bag today. IMPRESSION: 1. Blood loss anemia. 2. Atrial fibrillation. 3. Upper gastrointestinal bleed. 4. Generalized weakness. PLAN: Continue to work on a discharge plan. MMODL / IJN: [id number] /
--- NOTE | 2018-07-05 20:02 | PN ---
PROGRESS NOTE Patient is seen for followup for acute kidney injury. Currently he is lying in bed. He denies any complaints. We do not have any labs today; however, patient has had good urine output. His creatinine was down to 1.75 mg/dL yesterday. On examination today, blood pressure was 107/68, heart rate 85 per minute. He is afebrile. EXAMINATION OF THE HEART: S1, S2. EXAMINATION OF LUNGS: Bilateral breath sounds are heard. ABDOMEN: Soft, non-tender. Examination of lower extremities shows no significant edema. Labs show hemoglobin 7.6 today. Serum creatinine was 1.75 yesterday with sodium 143, potassium 3.6. ASSESSMENT: 1. Acute kidney injury, obstructive uropathy, currently status post bilateral nephrostomies with improving renal function. 2. History of bladder cancer, status post radical cystoprostatectomy and urinary diversion at [facility]. 3. Atrial fibrillation. 4. Anemia. No active bleeding noted at this time. Patient is maintained on Aranesp. 5. Acute blood-loss anemia initially, associated with coagulopathy and use of Coumadin, status post 4 units of packed RBCs. Patient has a previous history of duodenal ulcer. 6. Cardiomyopathy, ejection fraction 25% to 30%. 7. Acute on chronic congestive heart failure, systolic initially, currently resolved. PLAN: Patient is stable for discharge from nephrology standpoint. MMODL / IJN: [id number] /
[2018-07-06] MEDS: METOPROLOL TARTRATE 25 MG TAB PO SCH ×2 (07:52→19:55)
[2018-07-06] MEDS: SPIRONOLACTONE 25 MG TAB PO SCH (07:52)
[2018-07-06] MEDS: PANTOPRAZOLE 40 MG TABLET PO SCH (07:52)
[2018-07-06] MEDS: FERROUS SULFATE 325 MG TAB PO SCH ×3 (07:52→19:55)
[2018-07-06] MEDS: ISOSORBIDE MONONITRATE ER 30 MG TAB.ER.24H PO SCH (07:52)
[2018-07-06] MEDS: IPRATROPIUM-ALBUTEROL 3 ML NEB INHALATION PRN ×2 (11:11→20:42)
[2018-07-06] MEDS: SODIUM CHLORIDE 0.9% 1,000 ML IV SCH (13:15)
--- NOTE | 2018-07-06 17:39 | PN ---
PROGRESS NOTE CHIEF COMPLAINT: Status post upper GI bleed and hypovolemic shock with renal failure. HISTORY OF PRESENT ILLNESS: This gentleman continues to improve. Renal function is improving very quickly and is almost down to normal. Apparently he is going to a rehab filter facility tomorrow. PHYSICAL EXAMINATION: Chest is clear. Cardiac exam demonstrates atrial fibrillation. Abdomen is soft, nontender. IMPRESSION: 1. Upper gastrointestinal hemorrhage with septic shock. 2. Renal failure. 3. Obstructive ureteropathy. PLAN: Probably to rehab facility tomorrow. MMODL / IJN: [id number] /
--- NOTE | 2018-07-06 22:17 | PN ---
PROGRESS NOTE Patient was seen earlier today for followup for acute kidney injury. Renal function has improved with creatinine down to 1.75 from a peak of 4.7 mg/dL. Patient continues to have good urine output from both the nephrostomies. He is awaiting discharge to rehab facility. PHYSICAL EXAMINATION: On examination today, blood pressure was 96/58, heart rate about 80 per minute. Patient is afebrile. He has bilateral nephrostomies with good drainage. No edema is noted. LABS: Show hemoglobin 7.6 g/dL, sodium 143 from yesterday with serum creatinine of 1.75. ASSESSMENT: 1. Acute kidney injury, obstructive uropathy status post bilateral nephrostomies with significant improvement in the renal function. 2. Hypertension. Blood pressure is currently on the lower side. I will decrease the Lopressor. 3. Metabolic acidosis associated with renal failure, currently improved. 4. The acute blood loss fluid anemia associated with Coumadin coagulopathy with previous history of duodenal ulcer with no active bleeding noted on colonoscopy on 06/22/2018 with no evidence of active bleeding noted at that time. 5. History of bladder cancer with cystoprostatectomy and urostomy. PLAN: Decrease Lopressor. Check labs in a.m. Continue Aranesp and the patient will need followup with Urology as outpatient. MMODL / IJN: [id number] /
[2018-07-07] MEDS: ISOSORBIDE MONONITRATE ER 30 MG TAB.ER.24H PO SCH (08:34)
[2018-07-07] MEDS: FERROUS SULFATE 325 MG TAB PO SCH ×2 (08:37→14:53)
[2018-07-07] MEDS: PANTOPRAZOLE 40 MG TABLET PO SCH (08:37)
[2018-07-07] MEDS: SPIRONOLACTONE 25 MG TAB PO SCH (08:37)
[2018-07-07] MEDS: IPRATROPIUM-ALBUTEROL 3 ML NEB INHALATION PRN (08:57)
[2018-07-07] MEDS ORDERED: METOPROLOL TARTRATE 50 MG TAB PO SCH (09:00)
[2018-07-07] MEDS: SODIUM CHLORIDE 0.9% 1,000 ML IV SCH (14:53)
[2018-07-07 15:21] VITALS: BP 103/67; PULSE 93; RESP 18; TEMP 97.9
--- NOTE | 2018-07-07 15:25 | DS ---
DISCHARGE SUMMARY CHIEF COMPLAINT: Hypovolemic shock and upper GI bleed with renal failure. HISTORY OF PRESENT ILLNESS AND PHYSICAL EXAM: Details of this man's history and physical can be found in the initial workup. LABORATORY STUDIES: While he was in a hospital, he had laboratory studies, details of which can be found in the laboratory section of his chart. COURSE IN HOSPITAL: After admission he was placed on bedrest, started on intravenous fluids and was kept in ICU until his blood pressure stabilized. He was then able to be transferred out to telemetry. His renal function was severely impaired and was improving slowly, but it was learned that he had hydronephrosis. It was determined that this is on the basis of narrowing of the orifice at the site of his ureteral implants into his ileal conduit. He was eventually taken for the right and then the left nephrostomy tube placement. After that, his renal function began to improve quite quickly. Plans are being made for him to go to an extended care facility for rehab. FINAL DIAGNOSES: 1. Upper gastrointestinal bleed. 2. Hypovolemic shock. 3. Blood loss anemia. 4. Atrial fibrillation. 5. Renal failure. 6. Hydronephrosis. 7. Ureteral ileal loop stenosis, bilateral. 8. General debility and weakness. OPERATIONS: Bilateral nephrostomies. CONSULTATIONS: Urology, Intensive Medicine and Nephrology. MMODL / IJN: [id number] /
--- NOTE | 2018-07-07 22:07 | PN ---
PROGRESS NOTE Patient is seen for followup for acute kidney injury. Renal function is significantly improved with creatinine down to 1.75 on July 04. Repeat labs were ordered. I do not see that they were drawn. The patient continues to have good urine output. He is currently awaiting for discharge to rehab facility. EXAMINATION: Blood pressure is 103/67, heart rate 93 per minute. Patient is afebrile. Examination of the heart S1, S2. Examination of the lungs bilateral breath sounds are heard. Abdomen is soft, nontender. Examination of lower extremities shows no evidence of edema. The patient has bilateral nephrostomies. Recent labs are not available. Hemoglobin was 7.6 on 07/05/2018. Serum creatinine down to 1.75 on 07/04/2018. ASSESSMENT: 1. Acute kidney injury, mainly obstructive uropathy status post bilateral nephrostomy. The patient will need to follow up as outpatient with Urology. 2. Anemia with history of gastrointestinal bleed on initial admission. Currently maintained on Aranesp. 3. History of bladder cancer, status post cystoprostatectomy and urostomy. 4. Metabolic acidosis associated with renal failure, currently improved. The patient is maintained on sodium bicarb, which has been discontinued. PLAN: Awaiting discharge. The patient is cleared from nephrology standpoint. Follow up with Urology as outpatient. MMODL / IJN: [id number] /
== END 2018-07-07 18:33 | disposition home health service (06) | DRG 981 ==
LOC: EC 12:13 → 6ICU 17:05 → 6SEL 06-19 13:42 → 4MS4W 07-03 20:25
PROVIDERS: ADMIT Family Medicine; ATTEND Family Medicine
PROC: 30233N1 Transfusion of Nonautologous Red Blood Cells into Peripheral Vein, Percutaneous Approach (ICD-10-PCS; principal; 2018-06-16)
PROC: BT1 Imaging, Urinary System, Fluoroscopy (ICD-10-PCS; 2018-06-21)
PROC: 0DJD8ZZ Inspection of Lower Intestinal Tract, Via Natural or Artificial Opening Endoscopic (ICD-10-PCS; 2018-06-22)
PROC: 0T133JD Bypass Right Kidney Pelvis to Cutaneous with Synthetic Substitute, Percutaneous Approach (ICD-10-PCS; 2018-06-25)
PROC: 0T143JD Bypass Left Kidney Pelvis to Cutaneous with Synthetic Substitute, Percutaneous Approach (ICD-10-PCS; 2018-07-01)
DX: K92.2 Gastrointestinal hemorrhage, unspecified (principal); I50.23 Acute on chronic systolic (congestive) heart failure; N17.0 Acute kidney failure with tubular necrosis; R57.1 Hypovolemic shock; D62 Acute posthemorrhagic anemia; E87.2 Acidosis; I13.0 Hypertensive heart and chronic kidney disease with heart failure and stage 1 through stage 4 chronic kidney disease, or unspecified chronic kidney disease; I47.2 Ventricular tachycardia; N13.8 Other obstructive and reflux uropathy; T83.85XA Stenosis due to genitourinary prosthetic devices, implants and grafts, initial encounter; K25.4 Chronic or unspecified gastric ulcer with hemorrhage; I48.2 Chronic atrial fibrillation; J44.9 Chronic obstructive pulmonary disease, unspecified; E87.5 Hyperkalemia; E83.39 Other disorders of phosphorus metabolism; I08.1 Rheumatic disorders of both mitral and tricuspid valves; I25.5 Ischemic cardiomyopathy; K26.9 Duodenal ulcer, unspecified as acute or chronic, without hemorrhage or perforation; E83.42 Hypomagnesemia; Z90.6 Acquired absence of other parts of urinary tract; R31.0 Gross hematuria; T45.515A Adverse effect of anticoagulants, initial encounter; F10.21 Alcohol dependence, in remission; F17.210 Nicotine dependence, cigarettes, uncomplicated; I25.10 Atherosclerotic heart disease of native coronary artery without angina pectoris; I25.2 Old myocardial infarction; K64.4 Residual hemorrhoidal skin tags; K64.8 Other hemorrhoids; N18.9 Chronic kidney disease, unspecified; T50.2X5A Adverse effect of carbonic-anhydrase inhibitors, benzothiadiazides and other diuretics, initial encounter; H91.90 Unspecified hearing loss, unspecified ear; E61.1 Iron deficiency; R79.1 Abnormal coagulation profile; Z79.01 Long term (current) use of anticoagulants; Z79.899 Other long term (current) drug therapy; Z79.52 Long term (current) use of systemic steroids; Z85.46 Personal history of malignant neoplasm of prostate; Z85.51 Personal history of malignant neoplasm of bladder; Z90.79 Acquired absence of other genital organ(s); Z93.6 Other artificial openings of urinary tract status; Z92.21 Personal history of antineoplastic chemotherapy; Z93.2 Ileostomy status; Y92.009 Unspecified place in unspecified non-institutional (private) residence as the place of occurrence of the external cause
CPT/HCPCS: 36415; 45330; 50431; 50432; 71045; 74018; 76770; 76942; 77012; 80048; 80053; 81001; 82272; 82550; 82553; 83540; 83550; 83735; 84100; 84484; 85025; 85027; 85610; 85730; 86850; 86900; 86901; 86920; 93005; 94640; 94760; 99291

== ENCOUNTER 2018-07-09 14:18 | Emergency (ER) | payer MEDICARE ==
--- NOTE | 2018-07-09 16:03 | ED ---
Male Urogenital HPI - General Chief complaint: Urogenital Stated complaint: kidney tubing problems Time Seen by Provider: 07/09/18 15:15 Source: patient, RN notes reviewed, old records reviewed Mode of arrival: ambulatory Limitations: no limitations - History of Present Illness Initial comments: 77-year-old male presents emergency department today with chief complaint of concern for leakage from his left nephrostomy tube. Patient had bilateral nephrostomy to start placed on his recent admission and was discharged 2 days ago. Patient reports that after they changed the dressing he's had intermittent leakage from the left nephrostomy tube. He did call his urologist and he is not in until Thursday. Patient's concerned because every few hours he has had to sit in his urine and had wet clothes. - Related Data Home Medications Medication Instructions Recorded Confirmed Isosorbide Mononitrate [Isosorbide 30 mg PO DAILY 01/02/16 07/09/18 Mononitrate ER] Metoprolol Tartrate [Lopressor] 75 mg PO BID 05/04/18 07/09/18 Ferrous Sulfate [Feosol] 325 mg PO TID 06/16/18 07/09/18 Omeprazole 20 mg PO BID 06/16/18 07/09/18 Spironolactone [Aldactone] 25 mg PO DAILY 06/16/18 07/09/18 Warfarin [Coumadin] 5 mg PO DAILY 06/16/18 07/09/18 Previous Rx's Medication Instructions Recorded Furosemide [Lasix] 40 mg PO DAILY #30 tab 01/08/16 Lisinopril [Zestril] 2.5 mg PO DAILY #30 tab 01/08/16 Ipratropium-Albuterol Nebulize 3 ml INHALATION RT-Q12H PRN #60 05/21/18 [Duoneb 0.5 mg-3 mg/3 ml Soln] ampul.neb Ciprofloxacin HCl [Cipro] 500 mg PO Q12HR #10 tab 07/09/18 Allergies Allergy/AdvReac Type Severity Reaction Status Date / Time No Known Allergies Allergy Verified 07/09/18 14:53 Review of Systems ROS Statement: Those systems with pertinent positive or pertinent negative responses have been documented in the HPI. ROS Other: All systems not noted in ROS Statement are negative. Past Medical History Past Medical History: Atrial Fibrillation, Cancer, Myocardial Infarction ([place]) Additional Past Medical History / Comment(s): bladder ca, prostate ca had sx( urostomy) and 1 round of chemo in , afib, [place], hemorhoids, pt stated he was told by a dr that he had an enlarged heart, [place] Last Myocardial Infarction Date:: 2002 History of Any Multi-Drug Resistant Organisms: None Reported Past Surgical History: Adenoidectomy, Tonsillectomy Additional Past Surgical History / Comment(s): 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, nephrostomy tubes Past Anesthesia/Blood Transfusion Reactions: No Reported Reaction Past Psychological History: No Psychological Hx Reported Smoking Status: Current every day smoker Past Alcohol Use History: Daily Past Drug Use History: None Reported - Past Family History Father Family Medical History: No Reported History Mother Family Medical History: No Reported History General Exam - General Exam Comments Initial Comments: 77-year-old male. Alert and oriented. No significant distress. Limitations: no limitations General appearance: alert, in no apparent distress Head exam: Present: atraumatic, normocephalic, normal inspection Eye exam: Present: normal appearance, PERRL, EOMI. Absent: scleral icterus, conjunctival injection, periorbital swelling ENT exam: Present: normal exam, mucous membranes moist Neck exam: Present: normal inspection. Absent: tenderness, meningismus, lymphadenopathy Respiratory exam: Present: normal lung sounds bilaterally. Absent: respiratory distress, wheezes, rales, rhonchi, stridor Cardiovascular Exam: Present: regular rate, normal rhythm, normal heart sounds. Absent: systolic murmur, diastolic murmur, rubs, gallop, clicks GI/Abdominal exam: Present: soft, normal bowel sounds. Absent: distended, tenderness, guarding, rebound, rigid Extremities exam: Present: normal inspection, full ROM, normal capillary refill. Absent: tenderness, pedal edema, joint swelling, calf tenderness Back exam: Present: normal inspection, other (She has bilateral nephrostomy tubes. Patient has wet T-shirt and wet underwear and close over the left side. Tubing appears to be intact.) Neurological exam: Present: alert, oriented X3, CN II-XII intact Psychiatric exam: Present: normal affect, normal mood Skin exam: Present: warm, dry, intact, normal color. Absent: rash Course Vital Signs 07/09/18 14:50 Temperature 98.2 F Pulse Rate 99 Respiratory 18 Rate Blood Pressure 95/57 O2 Sat by Pulse 97 Oximetry Medical Decision Making - Medical Decision Making 77-year-old male presented to return to urgent minor drainage from his nephrostomy tube. We did call the interventional radiologist nurse, whom changed his dressing 2 days ago, and she changed the dressing as time. She believes that the nephrostomy tubes pulling too tightly and he was having some leakage coming from the opening of the nephrostomy tube on his back. Patient urinalysis did show hematuria and high bacteria. He reports he has no significant back pain, denies any fevers or chills this time. Patient culture of his urine will be obtained. In the meantime I will start the Patient on Cipro until urine culture is completed. - Lab Data Lab Results 07/09/18 Range/Units 16:29 Urine Color Yellow Urine Appearance Cloudy (Clear) Urine pH 6.5 (5.0-8.0) Ur Specific [place] 1.010 (1.001-1.035) Urine Protein 3+ H (Negative) Urine Glucose (UA) Negative (Negative) Urine Ketones Negative (Negative) Urine Blood Large H (Negative) Urine Nitrite Negative (Negative) Urine Bilirubin Negative (Negative) Urine Urobilinogen <2.0 (<2.0) mg/dL Ur Leukocyte Esterase Large H (Negative) Urine RBC >182 H (0-5) /hpf Ur Squamous Epith Cells <1 (0-4) /hpf Urine Bacteria Moderate H (None) /hpf Hyaline Casts 10 H (0-2) /lpf Urine Mucus Rare H (None) /hpf Urine Yeast (Budding) Few H (None) /hpf Disposition Clinical Impression: Complication of nephrostomy, UTI (urinary tract infection) Disposition: HOME SELF-CARE Condition: Good Instructions: Urinary Tract Infection in Men (ED) Additional Instructions: Patient has follow-up with urologist. Patient should return to emergency department if any alarming signs or symptoms occur. Take medication as prescribed. Keep the leg bag higher on the leg so that the prostitute does not pulled tightly. Prescriptions: Ciprofloxacin HCl [Cipro] 500 mg PO Q12HR #10 tab Is patient prescribed a controlled substance at d/c from ED?: No Referrals: Baudilio De Leon MD [Primary Care Provider] - 1-2 days Time of Disposition: 17:01
[2018-07-09 16:49] LABS: Appearance,Urine Cloudy (Clear); Bacteria,Urine Moderate /hpf; Bilirubin,Urine Negative (Negative); Blood,Urine Large (Negative); Budding Yeast,Urine Few /hpf; Color,Urine Yellow; Glucose,Urine (UA) Negative (Negative); Hyaline Casts,Urine 10 /lpf (0-2); Ketones,Urine Negative (Negative); Leukocyte Esterase,Urine Large (Negative); Mucus,Urine Rare /hpf; Nitrite,Urine Negative (Negative); PH, Urine 6.5 (5.0-8.0); Protein,Urine 3+ (Negative); RBC,Urine >182 /hpf (0-5); Squamous Epithelial Cell,Urine <1 /hpf (0-4); Urobilinogen,Urine <2.0 mg/dL (<2.0)
[2018-07-09] MEDS ORDERED: CIPROFLOXACIN HCL 500 MG TAB PO STA (17:00)
[2018-07-09 17:19] VITALS: BP 102/54; PULSE 102; RESP 20; TEMP 98
== END 2018-07-09 17:15 | disposition home or self-care (01) ==
LOC: EC 14:18
DX: N99.528 Other complication of incontinent external stoma of urinary tract (principal); N39.0 Urinary tract infection, site not specified; I48.91 Unspecified atrial fibrillation; I25.2 Old myocardial infarction; F17.200 Nicotine dependence, unspecified, uncomplicated; Z79.01 Long term (current) use of anticoagulants; Z79.899 Other long term (current) drug therapy; Z85.46 Personal history of malignant neoplasm of prostate; Z85.51 Personal history of malignant neoplasm of bladder
CPT/HCPCS: 81001; 87086; 99284

== ENCOUNTER 2018-07-13 12:11 | Day surgery (SDC) | payer MEDICARE ==
[2018-07-13 12:54] VITALS: TEMP 98
[2018-07-13] MEDS ORDERED: LIDOCAINE 1% INJ 10MG/ML (20 ML MDV) SQ ONE (13:26)
[2018-07-13] MEDS ORDERED: IOPAMIDOL-250 50ML BTL IV ONE (13:35)
[2018-07-13 13:52] VITALS: BP 100/55; PULSE 91; RESP 16
--- NOTE | 2018-07-14 12:12 | IR ---
Ultrasound-guided therapeutic and diagnostic thoracentesis DATE OF EXAM: 07/13/2018 CLINICAL HISTORY: Fluoroscopic guided left percutaneous nephrostomy tube exchange over guidewire DATE OF EXAM: 07/13/2018 CLINICAL HISTORY: Leaking left percutaneous nephrostomy tube The procedure was discussed with the patient. The risks, complications, benefits, and alternatives we re discussed and any questions were answered. Informed consent was obtained. The patient was placed prone on the fluoroscopic table and prepped and draped in the usual sterile fa shion. All elements of maximal barrier and sterile technique were utilized. Diluted contrast was injected through the pre-existing tube. Catheter was cut and exchanged over a gu idewire for a new 8.5 Thai left percutaneous nephrostomy tube. Repeat injection demonstrated ideal placement catheter. The patient was stable throughout the procedure and remained stable upon discharge from Department of Radiology. IMPRESSION: 1. Successful left-sided percutaneous nephrostomy tube exchange over guidewire.
== END 2018-07-13 14:02 | disposition home or self-care (01) ==
LOC: OR 12:11
PROVIDERS: ATTEND Radiology Diagnostic Radiology
DX: R31.0 Gross hematuria (principal); N13.30 Unspecified hydronephrosis; Z46.6 Encounter for fitting and adjustment of urinary device; I48.91 Unspecified atrial fibrillation; Z85.46 Personal history of malignant neoplasm of prostate; Z85.51 Personal history of malignant neoplasm of bladder; Z92.21 Personal history of antineoplastic chemotherapy; Z87.891 Personal history of nicotine dependence; Z79.01 Long term (current) use of anticoagulants; Z79.899 Other long term (current) drug therapy
CPT/HCPCS: 50435; 75984; C1729 ×2; C1769 ×3; J2001; J0696; Q9966

== ENCOUNTER 2018-07-18 16:05 | Inpatient (IN) | payer MEDICARE ==
[2018-07-18] MEDS ORDERED: ONDANSETRON 4 MG/2 ML VIAL IVP STA ×2 (16:42→19:19)
[2018-07-18] MEDS ORDERED: SODIUM CHLORIDE 0.9% 1,000 ML IV STA (16:42)
--- NOTE | 2018-07-18 16:44 | ED ---
General Adult HPI - General Chief complaint: Nausea/Vomiting/Diarrhea Stated complaint: Vomiting, Dizziness Time Seen by Provider: 07/18/18 16:30 Source: patient, RN notes reviewed Mode of arrival: wheelchair Limitations: no limitations - History of Present Illness Initial comments: This is a pleasant 77-year-old male who presents [facility] complaining of nausea and vomiting for the past 3 days. Patient has had multiple medical issues recently including gastrointestinal bleeding which required 2 different and separate blood transfusions. His daughter is here with him and states that he was on warfarin for atrial fibrillation. He ended up with a GI bleed and lost quite a bit of blood. Patient eventually was sent home after being taken off warfarin. She states they never found the site of bleeding. Patient did have a colonoscopy. Patient then had a repeat bleeding came back in the hospital required another blood transfusion. Patient was found to have renal failure. Patient had nephrostomy tubes placed. Patient does have a history of prostate and bladder cancer and has a chronic urostomy. Patient currently has bilateral urostomy tubes. Patient is really complaining of no pain. Patient denies any hematemesis or coffee-ground emesis. Patient is having watery and sometimes bilious vomiting. No constipation or diarrhea. Patient had normal bowel movement yesterday. Patient states she is having a hard time holding down any food anytime he attempts to eat or drink. Patient vomited twice in the past 24 hours. Patient currently complaining of nausea. No chest pain or shortness of breath. Patient was taken off of warfarin, Lasix, and lisinopril. Patient is still on metoprolol, isosorbide, DuoNeb, and spironolactone. Patient was found to be tachycardic and nearly hypotensive with a systolic blood pressure 95 when he arrived here. Patient is getting lightheaded with change of position. No headache. No overt dizziness. No hematuria. No skin rashes or lesions. No neck pain. No vision or hearing changes. No difficulty swallowing. No paresthesias. No focal weakness. - Related Data Home Medications Medication Instructions Recorded Confirmed Isosorbide Mononitrate [Isosorbide 30 mg PO DAILY 01/02/16 07/18/18 Mononitrate ER] Metoprolol Tartrate [Lopressor] 75 mg PO BID 05/04/18 07/18/18 Ferrous Sulfate [Feosol] 325 mg PO TID 06/16/18 07/18/18 Omeprazole 20 mg PO BID 06/16/18 07/18/18 Spironolactone [Aldactone] 25 mg PO DAILY 06/16/18 07/18/18 Ipratropium-Albuterol Nebulize 3 ml INHALATION RT-BID 07/18/18 07/18/18 [Duoneb 0.5 mg-3 mg/3 ml Soln] Allergies Allergy/AdvReac Type Severity Reaction Status Date / Time No Known Allergies Allergy Verified 07/18/18 20:01 Review of Systems ROS Statement: Those systems with pertinent positive or pertinent negative responses have been documented in the HPI. ROS Other: All systems not noted in ROS Statement are negative. 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 Patient's capillary refill is sluggish. Patient does appear to be dehydrated. Limitations: no limitations General appearance: alert Head exam: Present: atraumatic, normocephalic, normal inspection Eye exam: Present: normal appearance, PERRL, EOMI. Absent: scleral icterus, conjunctival injection, periorbital swelling ENT exam: Present: normal exam, normal oropharynx, TM's normal bilaterally, normal external ear exam, other (Mucous numbers are mildly dry. No oral lesions.) Neck exam: Present: normal inspection. Absent: tenderness, meningismus, lymphadenopathy Respiratory exam: Present: normal lung sounds bilaterally. Absent: respiratory distress, wheezes, rales, rhonchi, stridor Cardiovascular Exam: Present: tachycardia, irregular rhythm. Absent: systolic murmur, diastolic murmur, rubs, gallop, clicks GI/Abdominal exam: Present: soft, tenderness (Left lower quadrant and suprapubic tenderness to palpation), normal bowel sounds. Absent: distended, guarding, rebound, rigid Rectal exam: Present: normal rectal tone, other (Prostate absent). Absent: hemorrhoids, mass, tenderness exam: Present: normal inspection. Absent: testicular tenderness Extremities exam: Present: normal inspection, full ROM, normal capillary refill. Absent: tenderness, pedal edema, joint swelling, calf tenderness Back exam: Present: other (Bilateral urostomy sites noted. No evidence of secondary infection. Draining clear yellow liquid.). Absent: rash noted Neurological exam: Present: alert, oriented X3, CN II-XII intact Psychiatric exam: Present: normal affect, normal mood Skin exam: Present: warm, dry, intact, normal color. Absent: rash Course Vital Signs 07/18/18 07/18/18 07/18/18 16:21 17:10 17:20 Temperature 98.1 F Pulse Rate 110 H 94 78 Respiratory 16 14 10 L Rate Blood Pressure 95/60 108/89 112/74 O2 Sat by Pulse 99 100 95 Oximetry 07/18/18 07/18/18 07/18/18 17:30 17:50 18:00 Temperature Pulse Rate 89 98 98 Respiratory 11 L 10 L 7 L Rate Blood Pressure 112/74 120/86 O2 Sat by Pulse 95 98 98 Oximetry 07/18/18 07/18/18 07/18/18 18:10 18:20 18:55 Temperature Pulse Rate 98 87 96 Respiratory 11 L 10 L Rate Blood Pressure 105/80 105/80 O2 Sat by Pulse 98 98 Oximetry 07/18/18 07/18/18 07/18/18 19:00 19:02 19:15 Temperature Pulse Rate 89 99 Respiratory 10 L Rate Blood Pressure 115/70 115/86 O2 Sat by Pulse 99 91 L Oximetry 07/18/18 07/18/18 07/18/18 19:30 19:45 20:00 Temperature 97.7 F Pulse Rate 98 98 Respiratory 15 16 Rate Blood Pressure 115/86 106/75 106/75 O2 Sat by Pulse 97 97 Oximetry 07/18/18 20:29 Temperature Pulse Rate Respiratory Rate Blood Pressure 117/82 O2 Sat by Pulse Oximetry - Reevaluation(s) Reevaluation #1: 07/18/18 17:35 Patient reevaluated and is improved. Reevaluation #2: 07/18/18 19:20 Patient reevaluated and is complaining of pain. Patient is complaining of intermittent abdominal pain. I'm going to go ahead and order a computed tomography scan. Admission orders or any place. We will monitor for results. EKG Findings - EKG Comments: EKG Findings:: Initial EKG was done at 1648 revealing atrial fibrillation with rapid ventricular response with a rate of 105. No evidence of ST or T-wave abnormalities. Right axis deviation. Repeat EKG done at 8:05 PM reveals rapid ventricular response with atrial fibrillation heart rate 106 bpm. No significant change from the previous study. Medical Decision Making - Medical Decision Making Case was discussed with ER attending physician. Case was discussed with the patient's primary care physician who accepts the admission. Case discussed in detail with Dr. Jimenez. Patient be admitted under Dr. De Leon. I did review the CT findings. Patient has improving bilateral pleural effusions. Stomach distention consistent with gastroparesis. I'm going to start the patient on Reglan with concomitant Benadryl. Admitted - Lab Data Result diagrams: 07/18/18 16:50 07/18/18 16:50 Lab Results 07/18/18 07/18/18 07/18/18 Range/Units 16:50 16:50 16:50 WBC 6.2 (3.8-10.6) k/uL RBC 3.04 L (4.30-5.90) m/uL Hgb 8.7 L (13.0-17.5) gm/dL Hct 27.3 L (39.0-53.0) % MCV 90.0 (80.0-100.0) fL MCH 28.7 (25.0-35.0) pg MCHC 31.9 (31.0-37.0) g/dL RDW 17.1 H (11.5-15.5) % Plt Count 174 D (150-450) k/uL Neutrophils % (Manual) 76 % Band Neutrophils % 3 % Lymphocytes % (Manual) 17 % Monocytes % (Manual) 2 % Eosinophils % (Manual) 1 % Metamyelocytes % 1 % Neutrophils # (Manual) 4.80 (1.3-7.7) k/uL Lymphocytes # (Manual) 1.05 (1.0-4.8) k/uL Monocytes # (Manual) 0.12 (0-1.0) k/uL Eosinophils # (Manual) 0.06 (0-0.7) k/uL Metamyelocytes # (Man) 0.06 H (0) k/uL Nucleated RBCs 0 (0-0) /100 WBC Large Platelets Present Hypochromasia Moderate Poikilocytosis Slight Anisocytosis Slight Anisocytosis (manual) Present Ovalocytes Present PT (9.0-12.0) sec INR (<1.2) APTT (22.0-30.0) sec Sodium (137-145) mmol/L Potassium (3.5-5.1) mmol/L Chloride (98-107) mmol/L Carbon Dioxide (22-30) mmol/L Anion Gap mmol/L BUN (9-20) mg/dL Creatinine (0.66-1.25) mg/dL Est GFR (CKD-EPI)AfAm (>60 ml/min/1.73 sqM) Est GFR (CKD-EPI)NonAf (>60 ml/min/1.73 sqM) Glucose (74-99) mg/dL Plasma Lactic Acid Delon 1.4 (0.7-2.0) mmol/L Calcium (8.4-10.2) mg/dL Magnesium (1.6-2.3) mg/dL Total Bilirubin (0.2-1.3) mg/dL AST (17-59) U/L ALT (21-72) U/L Alkaline Phosphatase (38-126) U/L Total Creatine Kinase 39 L (55-170) U/L CK-MB (CK-2) 0.4 (0.0-2.4) ng/mL CK-MB (CK-2) Rel Index 1.0 Troponin I <0.012 (0.000-0.034) ng/mL Total Protein (6.3-8.2) g/dL Albumin (3.5-5.0) g/dL Urine Color Urine Appearance (Clear) Urine pH (5.0-8.0) Ur Specific [place] (1.001-1.035) Urine Protein (Negative) Urine Glucose (UA) (Negative) Urine Ketones (Negative) Urine Blood (Negative) Urine Nitrite (Negative) Urine Bilirubin (Negative) Urine Urobilinogen (<2.0) mg/dL Ur Leukocyte Esterase (Negative) Urine RBC (0-5) /hpf Urine WBC (0-5) /hpf Amorphous Sediment (None) /hpf Urine Bacteria (None) /hpf Hyaline Casts (0-2) /lpf Urine Mucus (None) /hpf Blood Type Blood Type Recheck Antibody Screen Spec Expiration Date 07/18/18 07/18/18 07/18/18 Range/Units 16:50 16:50 16:50 WBC (3.8-10.6) k/uL RBC (4.30-5.90) m/uL Hgb (13.0-17.5) gm/dL Hct (39.0-53.0) % MCV (80.0-100.0) fL MCH (25.0-35.0) pg MCHC (31.0-37.0) g/dL RDW (11.5-15.5) % Plt Count (150-450) k/uL Neutrophils % (Manual) % Band Neutrophils % % Lymphocytes % (Manual) % Monocytes % (Manual) % Eosinophils % (Manual) % Metamyelocytes % % Neutrophils # (Manual) (1.3-7.7) k/uL Lymphocytes # (Manual) (1.0-4.8) k/uL Monocytes # (Manual) (0-1.0) k/uL Eosinophils # (Manual) (0-0.7) k/uL Metamyelocytes # (Man) (0) k/uL Nucleated RBCs (0-0) /100 WBC Large Platelets Hypochromasia Poikilocytosis Anisocytosis Anisocytosis (manual) Ovalocytes PT 10.8 (9.0-12.0) sec INR 1.1 (<1.2) APTT 25.6 (22.0-30.0) sec Sodium 141 (137-145) mmol/L Potassium 3.6 (3.5-5.1) mmol/L Chloride 101 (98-107) mmol/L Carbon Dioxide 31 H (22-30) mmol/L Anion Gap 9 mmol/L BUN 18 (9-20) mg/dL Creatinine 1.72 H (0.66-1.25) mg/dL Est GFR (CKD-EPI)AfAm 44 (>60 ml/min/1.73 sqM) Est GFR (CKD-EPI)NonAf 38 (>60 ml/min/1.73 sqM) Glucose 114 H (74-99) mg/dL Plasma Lactic Acid Delon (0.7-2.0) mmol/L Calcium 9.6 (8.4-10.2) mg/dL Magnesium 1.4 L (1.6-2.3) mg/dL Total Bilirubin 0.6 (0.2-1.3) mg/dL AST 21 (17-59) U/L ALT 21 (21-72) U/L Alkaline Phosphatase 56 (38-126) U/L Total Creatine Kinase (55-170) U/L CK-MB (CK-2) (0.0-2.4) ng/mL CK-MB (CK-2) Rel Index Troponin I (0.000-0.034) ng/mL Total Protein 6.7 (6.3-8.2) g/dL Albumin 3.6 (3.5-5.0) g/dL Urine Color Urine Appearance (Clear) Urine pH (5.0-8.0) Ur Specific [place] (1.001-1.035) Urine Protein (Negative) Urine Glucose (UA) (Negative) Urine Ketones (Negative) Urine Blood (Negative) Urine Nitrite (Negative) Urine Bilirubin (Negative) Urine Urobilinogen (<2.0) mg/dL Ur Leukocyte Esterase (Negative) Urine RBC (0-5) /hpf Urine WBC (0-5) /hpf Amorphous Sediment (None) /hpf Urine Bacteria (None) /hpf Hyaline Casts (0-2) /lpf Urine Mucus (None) /hpf Blood Type O Positive Blood Type Recheck No Antibody Screen NEGATIVE Spec Expiration Date 07/21/2018 - 234907/18/18 Range/Units 17:45 WBC (3.8-10.6) k/uL RBC (4.30-5.90) m/uL Hgb (13.0-17.5) gm/dL Hct (39.0-53.0) % MCV (80.0-100.0) fL MCH (25.0-35.0) pg MCHC (31.0-37.0) g/dL RDW (11.5-15.5) % Plt Count (150-450) k/uL Neutrophils % (Manual) % Band Neutrophils % % Lymphocytes % (Manual) % Monocytes % (Manual) % Eosinophils % (Manual) % Metamyelocytes % % Neutrophils # (Manual) (1.3-7.7) k/uL Lymphocytes # (Manual) (1.0-4.8) k/uL Monocytes # (Manual) (0-1.0) k/uL Eosinophils # (Manual) (0-0.7) k/uL Metamyelocytes # (Man) (0) k/uL Nucleated RBCs (0-0) /100 WBC Large Platelets Hypochromasia Poikilocytosis Anisocytosis Anisocytosis (manual) Ovalocytes PT (9.0-12.0) sec INR (<1.2) APTT (22.0-30.0) sec Sodium (137-145) mmol/L Potassium (3.5-5.1) mmol/L Chloride (98-107) mmol/L Carbon Dioxide (22-30) mmol/L Anion Gap mmol/L BUN (9-20) mg/dL Creatinine (0.66-1.25) mg/dL Est GFR (CKD-EPI)AfAm (>60 ml/min/1.73 sqM) Est GFR (CKD-EPI)NonAf (>60 ml/min/1.73 sqM) Glucose (74-99) mg/dL Plasma Lactic Acid Delon (0.7-2.0) mmol/L Calcium (8.4-10.2) mg/dL Magnesium (1.6-2.3) mg/dL Total Bilirubin (0.2-1.3) mg/dL AST (17-59) U/L ALT (21-72) U/L Alkaline Phosphatase (38-126) U/L Total Creatine Kinase (55-170) U/L CK-MB (CK-2) (0.0-2.4) ng/mL CK-MB (CK-2) Rel Index Troponin I (0.000-0.034) ng/mL Total Protein (6.3-8.2) g/dL Albumin (3.5-5.0) g/dL Urine Color Yellow Urine Appearance Cloudy (Clear) Urine pH 6.5 (5.0-8.0) Ur Specific [place] 1.013 (1.001-1.035) Urine Protein 2+ H (Negative) Urine Glucose (UA) Negative (Negative) Urine Ketones Negative (Negative) Urine Blood Moderate H (Negative) Urine Nitrite Negative (Negative) Urine Bilirubin Negative (Negative) Urine Urobilinogen <2.0 (<2.0) mg/dL Ur Leukocyte Esterase Large H (Negative) Urine RBC 42 H (0-5) /hpf Urine WBC 14 H (0-5) /hpf Amorphous Sediment Rare H (None) /hpf Urine Bacteria Many H (None) /hpf Hyaline Casts 78 H (0-2) /lpf Urine Mucus Rare H (None) /hpf Blood Type Blood Type Recheck Antibody Screen Spec Expiration Date Disposition Clinical Impression: Urinary tract infection, Chronic anemia, Abdominal pain, Tachycardia, Gastroparesis, Pleural effusion, bilateral Disposition: ADMITTED IP TO THIS [facility] Condition: Fair Is patient prescribed a controlled substance at d/c from ED?: No Decision to Admit Reason: Admit from EC Decision Date: 07/18/18 Decision Time: 18:45
--- NOTE | 2018-07-18 17:01 | XR ---
EXAMINATION TYPE: XR chest 1V portable DATE OF EXAM: 07/18/2018 COMPARISON: 06/18/2018 HISTORY: Chest pain TECHNIQUE: Single frontal view of the chest is obtained. FINDINGS: There is coarsening of interstitial markings. Heart is enlarged. There is no pleural effus ion. Thoracic aorta is atheromatous. IMPRESSION: Cardiomegaly. Congestive heart failure is mostly cleared compared to old exam.
[2018-07-18 17:04] LABS: Anisocytosis Slight; HCT 27.3 % (39.0-53.0); HGB 8.7 gm/dL (13.0-17.5); Hypochromasia Moderate; MCH 28.7 pg (25.0-35.0); MCHC 31.9 g/dL (31.0-37.0); Mean Platelet Volume 10.2; Poikilocytosis Slight; RBC 3.04 m/uL (4.30-5.90); RDW 17.1 % (11.5-15.5); WBC 6.2 k/uL (3.8-10.6)
[2018-07-18 17:12] LABS: INR 1.1 (<1.2); Partial Thromboplastin Time 25.6 sec (22.0-30.0); Prothrombin Time 10.8 sec (9.0-12.0)
[2018-07-18 17:16] LABS: Albumin 3.6 g/dL (3.5-5.0); Calcium 9.6 mg/dL (8.4-10.2); Magnesium 1.4 mg/dL (1.6-2.3); Potassium 3.6 mmol/L (3.5-5.1); Total Bilirubin 0.6 mg/dL (0.2-1.3)
[2018-07-18] MEDS ORDERED: ACETAMINOPHEN IV (For NPO) 1,000 MG in EMPTY BAG 1 BAG IVPB STA (17:16)
[2018-07-18 17:17] LABS: Total Protein 6.7 g/dL (6.3-8.2)
[2018-07-18 17:18] LABS: Creatine Kinase 39 U/L (55-170)
[2018-07-18 17:20] LABS: Platelet Count 174 k/uL (150-450)
[2018-07-18 17:30] LABS: Creatine Kinase MB 0.4 ng/mL (0.0-2.4); Troponin I <0.012 ng/mL (0.000-0.034)
[2018-07-18 17:38] LABS: Band Neutrophils % 3 %; Eosinophils # (M) 0.06 k/uL (0-0.7); Large Platelets Present; Lymphocytes # (M) 1.05 k/uL (1.0-4.8); Metamyelocytes # (M) 0.06 k/uL (0); Metamyelocytes % 1 %; Monocytes # (M) 0.12 k/uL (0-1.0); Neutrophils % (M) 76 %; Nucleated Red Blood Cells 0 /100 WBC (0-0); Total Cells Counted 100
[2018-07-18 17:39] LABS: Anisocytosis (M) Present; Ovalocytes Present
[2018-07-18] MEDS ORDERED: IPRATROPIUM-ALBUTEROL 3 ML NEB INHALATION STA (17:39)
[2018-07-18 18:17] LABS: Amorphous Sediment,Urine Rare /hpf; Appearance,Urine Cloudy (Clear); Bacteria,Urine Many /hpf; Bilirubin,Urine Negative (Negative); Blood,Urine Moderate (Negative); Color,Urine Yellow; Glucose,Urine (UA) Negative (Negative); Hyaline Casts,Urine 78 /lpf (0-2); Ketones,Urine Negative (Negative); Leukocyte Esterase,Urine Large (Negative); Mucus,Urine Rare /hpf; Nitrite,Urine Negative (Negative); PH, Urine 6.5 (5.0-8.0); Protein,Urine 2+ (Negative); RBC,Urine 42 /hpf (0-5); Specific Gravity,Urine 1.013 (1.001-1.035); Urobilinogen,Urine <2.0 mg/dL (<2.0); WBC,Urine 14 /hpf (0-5)
[2018-07-18] MEDS ORDERED: VANCOMYCIN 2,000 MG in SODIUM CHLORIDE 0.9% 500 ML 500 ML IVPB STA (18:55)
[2018-07-18] MEDS ORDERED: ACETAMINOPHEN TAB 325 MG TAB PO PRN (19:12)
[2018-07-18] MEDS ORDERED: NALOXONE 0.4 MG/ML 1 ML VIAL IV PRN (19:12)
[2018-07-18] MEDS ORDERED: MORPHINE SULFATE 4 MG/ML SYRINGE IV STA (19:18)
[2018-07-18] MEDS ORDERED: VANCOMYCIN IV PER PHARMACY 1 EACH MISC MISCELLANE PRN (19:19)
--- NOTE | 2018-07-18 20:36 | CT ---
EXAMINATION TYPE: CT abdomen pelvis wo con DATE OF EXAM: 07/18/2018 COMPARISON: 01/03/2016 and 06/09/2018 HISTORY: Vomiting x3 days CT DLP: 598 mGycm Automated exposure control for dose reduction was used. TECHNIQUE: Helical acquisition of images was performed from the lung bases through the pelvis. FINDINGS: There are bilateral pleural effusions and larger on the right side. Heart is enlarged. There is patch y atelectasis and infiltrate at the lung bases. There are small hiatal hernia. Gallbladder appears no rmal. Stomach is dilated with fluid. Spleen appears normal. There is no pancreatic mass. There is 3 c m cyst in the left lobe of the liver. There is 2 cm cyst posterior right lobe of the liver. There is no adrenal mass. There are bilateral nephrostomy tubes. There is no hydronephrosis. Tubes ap pear in good position. There is an ileostomy in the right mid abdomen. There is no inguinal hernia. T here is narrowing of L5-S1 disc space with spur formation. There is no compression fracture. Abdomina l aorta is atheromatous. There are surgical clips in the mid abdomen. There is no sign of free air. S mall bowel does not appear dilated. There is no free fluid. There is vascular calcification. There ar e surgical clips in the pelvis. There is cystectomy noted. There is no evidence of a intestinal obstr uction. IMPRESSION: PLEURAL EFFUSIONS ARE SLIGHTLY SMALLER THAN RECENT EXAM. CARDIOMEGALY. INFILTRATES AT THE LUNG BASES UNCHANGED. THIS COULD RELATE TO CONGESTIVE HEART FAILURE. DILATED STOMACH IS NEW COMPARED TO OLD EXAM AND CONSISTENT WITH GASTROPARESIS. THERE IS CLEARING OF THE BILATERAL HYDRONEPHROSIS COMPARED TO OLD EXAM.
[2018-07-18] MEDS ORDERED: diphenhydrAMINE 50 MG/ML 1 ML VIAL IVP STA (20:59)
[2018-07-18] MEDS ORDERED: METOCLOPRAMIDE 5 MG/ML 2 ML VIAL IVP STA (20:59)
[2018-07-18 22:12] VITALS: BMI 27.4
[2018-07-18] MEDS: SODIUM CHLORIDE 0.9% 1,000 ML IV SCH (22:20)
[2018-07-19] MEDS: SODIUM CHLORIDE 0.9% 1,000 ML IV SCH ×2 (05:15→22:32)
[2018-07-19 09:52] LABS: Anisocytosis Slight; Basophils % (A) 0 %; Eosinophils # (A) 0.1 k/uL (0-0.7); Eosinophils % (A) 2 %; HCT 24.4 % (39.0-53.0); HGB 7.9 gm/dL (13.0-17.5); Hypochromasia Marked; Lymphocytes # (A) 0.9 k/uL (1.0-4.8); Lymphocytes % (A) 16 %; MCH 29.4 pg (25.0-35.0); MCHC 32.2 g/dL (31.0-37.0); MCV 91.3 fL (80.0-100.0); Mean Platelet Volume 10.3; Monocytes # (A) 0.6 k/uL (0-1.0); Monocytes % (A) 10 %; Neutrophils # (A) 3.8 k/uL (1.3-7.7); Neutrophils % (A) 68 %; Platelet Count 159 k/uL (150-450); RBC 2.68 m/uL (4.30-5.90); WBC 5.6 k/uL (3.8-10.6)
[2018-07-19 10:01] LABS: Albumin 3.1 g/dL (3.5-5.0); Calcium 8.9 mg/dL (8.4-10.2); Magnesium 1.4 mg/dL (1.6-2.3); Potassium 3.6 mmol/L (3.5-5.1); Total Bilirubin 0.4 mg/dL (0.2-1.3); Total Protein 6.1 g/dL (6.3-8.2)
[2018-07-19] MEDS: VANCOMYCIN 1,500 MG in SODIUM CHLORIDE 0.9% 250 ML IVPB SCH (11:52)
[2018-07-19 12:03] LABS: Hemoglobin A1C 4.6 % (4.0-6.0)
[2018-07-19] MEDS: PANTOPRAZOLE 40 MG TABLET PO SCH (16:58)
--- NOTE | 2018-07-19 17:43 | HP ---
HISTORY AND PHYSICAL CHIEF COMPLAINT: Nausea, vomiting, generalized weakness and urinary tract infection. HISTORY OF PRESENT ILLNESS: This is another recent admission for this 77-year-old white male who was been in and out of the hospital recently with massive upper gastrointestinal hemorrhage while on anticoagulants for atrial fibrillation. He developed profound renal failure and eventually was found to have an obstructive uropathy for which he underwent about bilateral nephrostomy tubes. He was discharged and he has gradually been improving. He has been quite anemic. His renal function is definitely improved. He suddenly developed nausea and vomiting and chills and came to emergency room where he was found to have intractable nausea and vomiting, dehydration and urinary tract infection. He is admitted. REVIEW OF SYSTEMS: He only feels weak. He has no chest pain, cough, hemoptysis, abdominal pain, etc. Past medical history, family history, personal and social histories are all otherwise unremarkable, noncontributory or otherwise unchanged. PHYSICAL EXAM: He is pale. Blood pressure is 120/68 with a pulse of 90 and irregularly irregular. Respirations were 35 and he is afebrile. In general, he is quite pale. Head, ears, eyes, nose, mouth, and throat were otherwise normal. Neck veins not distended. Chest is clear. Cardiac exam demonstrated atrial fibrillation. Abdomen is soft. He had an ileal loop bag in the right side of the abdomen. Urine appeared to be slightly pink tinged. Extremities are normal. Neurological he is intact. He is admitted to the hospital with diagnoses: 1. Nausea and vomiting. 2. Urinary tract infection. 3. Status post nephrostomy tubes for ureteral obstruction. 4. Anemia. 5. Atrial fibrillation. PLAN: 1. Bed rest. 2. IV fluids. 3. IV antibiotics. 4. Antiemetics. MMODL / IJN: [id number] /
--- NOTE | 2018-07-19 18:10 | PN ---
PROGRESS NOTE CHIEF COMPLAINT: Nausea, vomiting, and urinary tract infection. HISTORY OF PRESENT ILLNESS: This gentleman is doing as little bit better. Nausea is improved. He has not thrown up. He has had no significant pain in the back or abdomen. He has had no fever or chills. PHYSICAL EXAM: He remains pale. CHEST: Clear. Cardiac exam reveals he is in atrial fibrillation. Abdomen is soft, nontender. IMPRESSION: 1. Nausea and vomiting. 2. Dehydration. 3. Urinary tract infection. 4. Renal failure. 5. Atrial fibrillation. PLAN: Continue with IV fluids and follow his clinical picture and laboratory studies. MMODL / IJN: [id number] /
[2018-07-19] MEDS: IPRATROPIUM-ALBUTEROL 3 ML NEB INHALATION SCH (20:27)
[2018-07-19] MEDS: METOPROLOL TARTRATE 25 MG TAB PO SCH (21:19)
[2018-07-20] MEDS: SODIUM CHLORIDE 0.9% 1,000 ML IV SCH ×3 (05:33→21:15)
[2018-07-20] MEDS: SPIRONOLACTONE 25 MG TAB PO SCH (07:23)
[2018-07-20] MEDS: ISOSORBIDE MONONITRATE ER 30 MG TAB.ER.24H PO SCH (07:23)
[2018-07-20] MEDS: PANTOPRAZOLE 40 MG TABLET PO SCH ×2 (07:23→17:44)
[2018-07-20] MEDS: METOPROLOL TARTRATE 25 MG TAB PO SCH ×2 (07:23→21:13)
[2018-07-20] MEDS: IPRATROPIUM-ALBUTEROL 3 ML NEB INHALATION SCH ×2 (10:20→20:20)
--- NOTE | 2018-07-20 10:53 | CDI ---
Last Revision, August 2017 Documentation Clarification Form Date: 07/20/18 From: Ciarra Nj RN Admit Date: 07/18/2018 6:48:00 PM Patient Name: Baudilio Putnam Visit Number: [id number] ATTENTION: The Clinical Documentation Specialists (CDI) and [facility] Coding Staff appreciate your assistance in clarifying documentation. Please respond to the clarification below the line at the bottom and electronically sign. The CDI & [facility] Coding staff will review the response and follow-up if needed. Please note: Queries are made part of the Legal Health Record. If you have any questions, please contact the author of this message via ITS. Baudilio Rubi MD, A diagnosis of anemia lacks specificity to accurately reflect your patients severity of condition and clarification is needed. Pt. admitted with nausea, vomiting, UTI, chronic anemia, pleural effusions bilateral H&P states anemia and patient looks pale.. ED note states chronic anemia. History/Risk Factors: GI bleed, A-Fib. Clinical indicators: H&P states anemia. ED note states chronic anemia. Hemoglobin: 8.7 - 7.9 Hematocrit: 27.3 - 24.4 Treatment: 1 units of PRBCs transfused Monitor labs panel monitor In order to capture the severity of condition, please clarify the type of anemia and etiology if known: Acute blood loss anemia Acute on chronic blood loss anemia Chronic blood loss anemia Iron deficiency anemia Nutritional anemia Unable to determine Other, please specify MTDD
[2018-07-20] MEDS: VANCOMYCIN 1,500 MG in SODIUM CHLORIDE 0.9% 250 ML IVPB SCH (11:45)
--- NOTE | 2018-07-20 15:34 | PN ---
PROGRESS NOTE DATE OF SERVICE: 07/20/2018. CHIEF COMPLAINT: Urinary tract infection with nausea and vomiting. HISTORY OF PRESENT ILLNESS: This gentleman is doing better. Nausea and vomiting have ceased. He has been stable, otherwise. He has not been febrile. PHYSICAL EXAM: Chest is clear. The cardiac exam is unchanged and the abdomen is soft, nontender. IMPRESSION: 1. Nausea and vomiting. 2. Urinary tract infection. 3. Atrial fibrillation. 4. Renal failure. PLAN: Advance diet and activity and possibly discharge tomorrow. MMODL / IJN: [id number] /
[2018-07-21] MEDS: IPRATROPIUM-ALBUTEROL 3 ML NEB INHALATION SCH ×2 (07:52→20:18)
[2018-07-21] MEDS: PANTOPRAZOLE 40 MG TABLET PO SCH ×2 (10:00→17:54)
[2018-07-21] MEDS: SPIRONOLACTONE 25 MG TAB PO SCH (10:00)
[2018-07-21] MEDS: METOPROLOL TARTRATE 25 MG TAB PO SCH ×2 (10:01→22:23)
[2018-07-21] MEDS: ISOSORBIDE MONONITRATE ER 30 MG TAB.ER.24H PO SCH (10:01)
[2018-07-21 10:56] LABS: Calcium 8.7 mg/dL (8.4-10.2); Potassium 3.5 mmol/L (3.5-5.1)
[2018-07-21] MEDS: VANCOMYCIN 1,500 MG in SODIUM CHLORIDE 0.9% 250 ML IVPB SCH (12:44)
[2018-07-21] MEDS: SODIUM CHLORIDE 0.9% 1,000 ML IV SCH ×2 (12:50→17:54)
[2018-07-22] MEDS: SODIUM CHLORIDE 0.9% 1,000 ML IV SCH ×2 (04:27→14:07)
[2018-07-22] MEDS: IPRATROPIUM-ALBUTEROL 3 ML NEB INHALATION SCH (07:36)
[2018-07-22 09:47] VITALS: BP 118/74; PULSE 94; RESP 16; TEMP 97.9
[2018-07-22] MEDS: PANTOPRAZOLE 40 MG TABLET PO SCH (09:52)
[2018-07-22] MEDS: IRON POLYSACCHARIDES COMPLEX 150 MG CAP PO SCH ×2 (09:53→12:22)
[2018-07-22] MEDS: ISOSORBIDE MONONITRATE ER 30 MG TAB.ER.24H PO SCH (09:53)
[2018-07-22] MEDS: SPIRONOLACTONE 25 MG TAB PO SCH (09:53)
[2018-07-22] MEDS: METOPROLOL TARTRATE 25 MG TAB PO SCH (09:53)
[2018-07-22] MEDS ORDERED: VANCOMYCIN TROUGH DUE 1 EACH MISC MISCELLANE ONE (11:00)
--- NOTE | 2018-07-22 11:03 | DS ---
DISCHARGE SUMMARY CHIEF COMPLAINT: Urinary tract infection. HISTORY OF PRESENT ILLNESS AND PHYSICAL EXAM: Details of this man's history and physical can be found in the initial workup. LABORATORY STUDIES: While he was in a hospital he had laboratory studies, details which can be found in the laboratory section of his chart. COURSE IN HOSPITAL: After admission he was placed on bedrest started on intravenous fluids and IV antibiotics. Temperature came down and he did well. It was felt that he was stable enough to be discharged on the and he will be discharged on usual activity medication and be set up with home care. He will be on Levaquin 250 mg once a day for 10 days. He will be in the office several days. FINAL DIAGNOSES: 1. Urinary tract infection. 2. Recent episodes of gastrointestinal bleed with hypovolemic shock. 3. Blood loss anemia. 4. Chronic renal failure, improving. 5. Bilateral hydronephrosis. 6. Atrial fibrillation. OPERATIONS: None. CONSULTATION: None. He is improved. MMODL / DIEGON: [id number] /
[2018-07-22] MEDS: VANCOMYCIN 1,500 MG in SODIUM CHLORIDE 0.9% 250 ML IVPB SCH (12:22)
[2018-07-22] MEDS ORDERED: AMOXIC-POT CLAV 875-125MG 1 EACH TAB PO SCH (21:00)
--- NOTE | 2018-07-23 15:58 | PN ---
PROGRESS NOTE DATE OF SERVICE: 07/21/2018 CHIEF COMPLAINT: Renal failure, urinary tract infection and abdominal bloating. HISTORY OF PRESENT ILLNESS: This gentleman has been doing fairly well. Vital signs have been normal. But he feels his abdomen is somewhat bloated. He has had no diarrhea, constipation, pain, etc. PHYSICAL EXAMINATION: Chest is clear. Cardiac exam demonstrates his atrial fibrillation. Abdomen is slightly distended, soft and nontender without masses or visceromegaly. Extremities are normal. IMPRESSION: 1. Urinary tract infection. 2. Status post upper gastrointestinal hemorrhage with hypovolemic shock from blood loss anemia. 3. Renal failure. PLAN: Follow abdominal findings and probably be able to discharge him in the next day or two. MMODL / IJN: [id number] /
--- NOTE | 2018-07-26 07:21 | CDI ---
Last Revision, August 2017 Documentation Clarification Form Date: 07/26/18 From: Amber Sukhdev Vidya Nguyễn, Inspector Aligning Hours-8:30 am & 5 pm M-F Admit Date: 07/18/2018 6:48:00 PM Patient Name: Baudilio Putnam Visit Number: [id number] Discharge Date: 07/22/18 ATTENTION: The Clinical Documentation Specialists (CDI) and [facility] Coding Staff appreciate your assistance in clarifying documentation. Please respond to the clarification below the line at the bottom and electronically sign. The CDI & [facility] Coding staff will review the response and follow-up if needed. Please note: Queries are made part of the Legal Health Record. If you have any questions, please contact the author of this message via ITS. Dr. SMITH, Baudilio Grubbs MD Atrial fibrillation is documented in the ED note, H&P, the 3 PNs, and DS. History/Risk Factors: s/p bleeding from anticoagulation, UTI, hc of prostate/ bladder cancer, ileal conduit urinary diversion and nephrostomy tubes EKG/telemetry: atrial fibrillation with rapid ventricular response w premature or abberrantly conducted complexes/vent rate 105/106 Treatment: Warfarin on hold due to bleeding In your professional opinion, can you please clarify the type of atrial fibrillation, if known? Chronic/Permanent Paroxysmal Persistent Other, please specify Unable to determine Please continue to document in your progress notes and discharge summary in order to capture severity of illness and risk of mortality. Include clinical findings that support your diagnosis. MTDD
--- NOTE | 2018-07-26 07:40 | CDI ---
Last Revision, August 2017 Documentation Clarification Form Date: From: Amber Santizo Phone: Admit Date: 07/18/2018 6:48:00 PM Patient Name: Baudilio Putnam Visit Number: [id number] Discharge Date: ATTENTION: The Clinical Documentation Specialists (CDI) and [facility] Coding Staff appreciate your assistance in clarifying documentation. Please respond to the clarification below the line at the bottom and electronically sign. The CDI & [facility] Coding staff will review the response and follow-up if needed. Please note: Queries are made part of the Legal Health Record. If you have any questions, please contact the author of this message via ITS. Baudilio Rubi MD History/Risk Factors: Hx of CKD, hx prostate/bladder ca/s/p ileal conduit urinary diversion/ nephrostomy tubes Current BUN: 18, 15, 8 Current CR: 1.72, 1.62, 1.19 Current GFR: 38, 41, 60 Patients Baseline: BUN/CR/GFR: not documented Treatment: IVFs Patients medications include: Fesol, Duoneb, Isosorbide Mononitrate ER, Lopresso, Omeprazole, Aldactone In order to capture the severity of condition, please clarify if the condition signifies: CKD Stage 1 (GFR > 90) CKD Stage 2 (GFR 60-89) CKD Stage 3 (GFR 30-59) CKD Stage 4 (GFR 15-29) CKD Stage 5 (GFR <15) ESRD Other, please specify Unable to determine Please continue to document in your progress notes and discharge summary in order to capture severity of illness and risk of mortality. Include clinical findings that support your diagnosis. MTDD
--- NOTE | 2018-08-03 12:08 | MISC ---
MISCELLANOUS REPORT QUERY Acute blood loss anemia. MMODL / IJN: [id number] /
--- NOTE | 2018-08-03 13:21 | MISC ---
MISCELLANOUS REPORT QUERY Atrial fibrillation, chronic/permanent. Stage III renal failure. MMODL / IJN: [id number] /
== END 2018-07-22 15:14 | disposition home health service (06) | DRG 690 ==
LOC: EC 16:05 → 4SSUR 18:48
PROVIDERS: ADMIT Family Medicine; ATTEND Family Medicine
DX: N13.6 Pyonephrosis (principal); D62 Acute posthemorrhagic anemia; R64 Cachexia; J90 Pleural effusion, not elsewhere classified; I95.9 Hypotension, unspecified; I48.2 Chronic atrial fibrillation; E86.0 Dehydration; K31.84 Gastroparesis; D63.1 Anemia in chronic kidney disease; N18.3 Chronic kidney disease, stage 3 (moderate); Z93.6 Other artificial openings of urinary tract status; I25.2 Old myocardial infarction; I51.7 Cardiomegaly; H91.90 Unspecified hearing loss, unspecified ear; F17.200 Nicotine dependence, unspecified, uncomplicated; Z68.27 Body mass index [BMI] 27.0-27.9, adult; Z85.46 Personal history of malignant neoplasm of prostate; Z85.51 Personal history of malignant neoplasm of bladder; Z79.899 Other long term (current) drug therapy; Z87.19 Personal history of other diseases of the digestive system
CPT/HCPCS: 36415; 71045; 74176; 80048; 80053; 80202; 81001; 82550; 82553; 83036; 83540; 83605; 83735; 83880; 84484; 85025; 85610; 85730; 86850; 86900; 86901; 87040; 87077; 87086; 87186; 93005; 94640; 94760; 96361; 96365; 96366; 96367; 96375; 96376; 99285

== ENCOUNTER 2018-07-23 12:43 | Inpatient (IN) | payer MEDICARE ==
[2018-07-23] MEDS ORDERED: IPRATROPIUM-ALBUTEROL 3 ML NEB INHALATION STA (13:14)
[2018-07-23] MEDS ORDERED: SODIUM CHLORIDE 0.9% 1,000 ML IV ONE (13:15)
[2018-07-23] MEDS ORDERED: ONDANSETRON 4 MG/2 ML VIAL IVP STA (13:15)
[2018-07-23] MEDS ORDERED: LEVOFLOXACIN 750MG-D5W PMX 750 MG in DEXTROSE/WATER 1 150ML.BAG IVPB STA (13:35)
[2018-07-23] MEDS ORDERED: methylPREDNISolone SOD SUCCI 125 MG/2 ML VIAL IV STA (13:35)
[2018-07-23] MEDS ORDERED: PIPERACILLIN-TAZOBACTAM 3.375 GM in DEXTROSE/WATER 1 50ML.BAG IVPB STA (13:35)
[2018-07-23 13:36] LABS: Anisocytosis Slight; Basophils % (A) 0 %; Eosinophils # (A) 0.1 k/uL (0-0.7); Eosinophils % (A) 1 %; HCT 31.6 % (39.0-53.0); Hypochromasia Marked; Lymphocytes # (A) 0.5 k/uL (1.0-4.8); Lymphocytes % (A) 8 %; MCH 28.2 pg (25.0-35.0); MCHC 31.2 g/dL (31.0-37.0); MCV 90.3 fL (80.0-100.0); Mean Platelet Volume 10.1; Monocytes # (A) 0.5 k/uL (0-1.0); Monocytes % (A) 8 %; Neutrophils # (A) 4.7 k/uL (1.3-7.7); Neutrophils % (A) 80 %; Platelet Count 123 k/uL (150-450); Poikilocytosis Slight; RDW 16.6 % (11.5-15.5); WBC 5.9 k/uL (3.8-10.6)
[2018-07-23 13:46] LABS: HGB 9.9 gm/dL (13.0-17.5)
[2018-07-23 13:52] LABS: Albumin 3.5 g/dL (3.5-5.0); Calcium 9.5 mg/dL (8.4-10.2); Magnesium 1.3 mg/dL (1.6-2.3); Potassium 3.4 mmol/L (3.5-5.1); Total Bilirubin 0.6 mg/dL (0.2-1.3); Total Protein 6.7 g/dL (6.3-8.2)
--- NOTE | 2018-07-23 13:53 | ED ---
General Adult HPI - General Source: patient, family, RN notes reviewed Mode of arrival: wheelchair Limitations: no limitations <Albin Wolff - Last Filed: 07/23/18 15:35> <Pb Will - Last Filed: 07/23/18 15:51> - General Chief complaint: Nausea/Vomiting/Diarrhea Stated complaint: N & V Time Seen by Provider: 07/23/18 13:06 - History of Present Illness Initial comments: This a 77-year-old male presents emergency Department with daughter with multiple complaints. Patient states he was recently discharged the hospital yesterday for urinary tract infection. Patient has been in the hospital with anemia, obstructive uropathy with bilateral nephrostomy tubes, nausea vomiting and weakness. Patient does have underlying A. fib but was taken off anticoagulants secondary to anemia. Patient presents today increased shortness breath, weakness. Patient states he was dozing and out of sleep states that he coughed, vomited and believes he aspirated. He does have COPD and states that he cannot breathe he cannot lay flat at this time. Patient denies any chest pain states is severely short of breath and feels rundown. Patient has had no fever denies any current chills. Patient states that he has no abdominal pain. Patient denies any headache. (Albin Wolff) - Related Data Home Medications Medication Instructions Recorded Confirmed Isosorbide Mononitrate [Isosorbide 30 mg PO DAILY 01/02/16 07/23/18 Mononitrate ER] Metoprolol Tartrate [Lopressor] 75 mg PO BID 05/04/18 07/23/18 Ferrous Sulfate [Feosol] 325 mg PO TID 06/16/18 07/23/18 Omeprazole 20 mg PO BID 06/16/18 07/23/18 Spironolactone [Aldactone] 25 mg PO DAILY 06/16/18 07/23/18 Ipratropium-Albuterol Nebulize 3 ml INHALATION RT-BID 07/18/18 07/23/18 [Duoneb 0.5 mg-3 mg/3 ml Soln] Amoxic-Pot Clav 875-125Mg 1 tab PO Q12HR 07/23/18 07/23/18 [Augmentin 875-125] Previous Rx's Medication Instructions Recorded Iron Polysaccharides Complex 300 mg PO DAILY@1200 #100 cap 07/22/18 [Niferex-150] Allergies Allergy/AdvReac Type Severity Reaction Status Date / Time No Known Allergies Allergy Verified 07/23/18 13:32 Review of Systems ROS Other: All systems not noted in ROS Statement are negative. <Albin Wolff - Last Filed: 07/23/18 15:35> ROS Other: All systems not noted in ROS Statement are negative. <SumanPb - Last Filed: 07/23/18 15:51> ROS Statement: Those systems with pertinent positive or pertinent negative responses have been documented in the HPI. Past Medical History Past Medical History: Atrial Fibrillation, Cancer, Myocardial Infarction ([place]) Additional Past Medical History / Comment(s): bladder ca, prostate ca had sx( urostomy) and 1 round of chemo in , afib, [place], hemorhoids, pt stated he was told by a dr that he had an enlarged heart, [place] Last Myocardial Infarction Date:: 2002 History of Any Multi-Drug Resistant Organisms: ESBL Date of last positivie culture/infection: 07/18/18 MDRO Source:: URINE ESBL Past Surgical History: Adenoidectomy, Tonsillectomy Additional Past Surgical History / Comment(s): 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, nephrostomy tubes Past Anesthesia/Blood Transfusion Reactions: No Reported Reaction Past Psychological History: No Psychological Hx Reported Smoking Status: Current every day smoker Past Alcohol Use History: None Reported Past Drug Use History: None Reported - Past Family History Father Family Medical History: No Reported History Mother Family Medical History: No Reported History <Albin Wolff - Last Filed: 07/23/18 15:35> General Exam Limitations: no limitations General appearance: alert, in no apparent distress, cachectic, other (() Head exam: Present: atraumatic, normocephalic, normal inspection Eye exam: Present: normal appearance, PERRL, EOMI. Absent: scleral icterus, conjunctival injection, periorbital swelling ENT exam: Present: normal exam, normal oropharynx, mucous membranes moist Neck exam: Present: normal inspection, full ROM. Absent: tenderness, meningismus, lymphadenopathy Respiratory exam: Present: wheezes, rhonchi. Absent: normal lung sounds bilaterally, respiratory distress, rales, stridor Cardiovascular Exam: Present: tachycardia, irregular rhythm, normal heart sounds. Absent: regular rate, normal rhythm, systolic murmur, diastolic murmur , rubs, gallop, clicks Neurological exam: Present: alert, oriented X3, CN II-XII intact, reflexes normal. Absent: motor sensory deficit Skin exam: Present: warm, dry, intact, normal color. Absent: rash <Albin Wolff - Last Filed: 07/23/18 15:35> Vital Signs 07/23/18 07/23/18 07/23/18 12:58 14:53 15:15 Temperature 97.8 F Pulse Rate 106 H 125 H 134 H Respiratory 22 20 24 Rate Blood Pressure 85/49 137/68 100/57 O2 Sat by Pulse 86 L 95 90 L Oximetry 07/23/18 07/23/18 15:18 15:29 Temperature Pulse Rate 136 H 147 H Respiratory 22 22 Rate Blood Pressure O2 Sat by Pulse Oximetry EKG Findings - EKG Comments: EKG Findings:: EKG performed at 13:13 A. fib with RVR rate 136 QRS 96 QT/QTC 326 /490 <Albin Wolff - Last Filed: 07/23/18 15:35> Medical Decision Making - Lab Data Result diagrams: 07/23/18 13:14 07/23/18 13:14 <Albin Wolff - Last Filed: 07/23/18 15:35> - Lab Data Result diagrams: 07/23/18 13:14 07/23/18 13:14 <Pb Will - Last Filed: 07/23/18 15:51> - Medical Decision Making 77-year-old male presented emergency Department with multiple complaints and comorbidities. Patient's is acutely ill with aspiration pneumonia. Chest x- ray shows nodular type pneumonia on the right lung. He did have a case where he felt that he choked on and some emesis at home. Patient also has underlying A. fib at a rapid ventricular rate at this time. Patient was started on only 5mg infusion of Cardizem as his blood pressure has been mildly hypotensive. Patient was given initial fluid bolus though he does have some underlying CHF and fluids will be on at this time. Patient will have replacement of his potassium and magnesium. Patient was placed on Levaquin and Zosyn for pneumonia which appears to be aspiration pneumonia. Patient will be admitted to telemetry with consult to cardiology and pulmonology. Patient will not be placed on heparin for his A. fib as he has had recent GI bleed, removed from anticoagulants secondary to chronic anemia worsening anemia (Albin Wolff) 79-year-old male presenting with history concerning for aspiration. Chest x- ray does show infiltrate on the right consistent with aspiration. Patient is loaded with antibiotics in the emergency department. Patient is also A. fib with RVR, initially thought to be related to his dyspnea and pneumonia, this is treated initially with a fluid bolus, followed by Cardizem infusion. Patient's electrolytes are replaced in the emergency department including hypokalemia and hypomagnesemia. Case discussed with admitting physician who will accept. Pulmonology and cardiology on consult. (Pb Will) - Lab Data Lab Results 07/23/18 07/23/18 07/23/18 Range/Units 13:14 13:14 13:14 WBC 5.9 (3.8-10.6) k/uL RBC 3.50 L (4.30-5.90) m/uL Hgb 9.9 L D (13.0-17.5) gm/dL Hct 31.6 L (39.0-53.0) % MCV 90.3 (80.0-100.0) fL MCH 28.2 (25.0-35.0) pg MCHC 31.2 (31.0-37.0) g/dL RDW 16.6 H (11.5-15.5) % Plt Count 123 L (150-450) k/uL Neutrophils % 80 % Lymphocytes % 8 % Monocytes % 8 % Eosinophils % 1 % Basophils % 0 % Neutrophils # 4.7 (1.3-7.7) k/uL Lymphocytes # 0.5 L (1.0-4.8) k/uL Monocytes # 0.5 (0-1.0) k/uL Eosinophils # 0.1 (0-0.7) k/uL Basophils # 0.0 (0-0.2) k/uL Hypochromasia Marked Poikilocytosis Slight Anisocytosis Slight PT (9.0-12.0) sec INR (<1.2) APTT (22.0-30.0) sec Sodium 142 (137-145) mmol/L Potassium 3.4 L (3.5-5.1) mmol/L Chloride 111 H (98-107) mmol/L Carbon Dioxide 23 (22-30) mmol/L Anion Gap 8 mmol/L BUN 7 L (9-20) mg/dL Creatinine 1.16 (0.66-1.25) mg/dL Est GFR (CKD-EPI)AfAm 71 (>60 ml/min/1.73 sqM) Est GFR (CKD-EPI)NonAf 62 (>60 ml/min/1.73 sqM) Glucose 127 H (74-99) mg/dL Plasma Lactic Acid Delon (0.7-2.0) mmol/L Calcium 9.5 (8.4-10.2) mg/dL Magnesium 1.3 L (1.6-2.3) mg/dL Total Bilirubin 0.6 (0.2-1.3) mg/dL AST 20 (17-59) U/L ALT 15 L (21-72) U/L Alkaline Phosphatase 61 (38-126) U/L Total Creatine Kinase 34 L (55-170) U/L CK-MB (CK-2) 1.0 (0.0-2.4) ng/mL CK-MB (CK-2) Rel Index 2.9 Troponin I 0.019 (0.000-0.034) ng/mL NT-Pro-B Natriuret Pep pg/mL Total Protein 6.7 (6.3-8.2) g/dL Albumin 3.5 (3.5-5.0) g/dL 07/23/18 07/23/18 07/23/18 Range/Units 13:14 13:14 13:14 WBC (3.8-10.6) k/uL RBC (4.30-5.90) m/uL Hgb (13.0-17.5) gm/dL Hct (39.0-53.0) % MCV (80.0-100.0) fL MCH (25.0-35.0) pg MCHC (31.0-37.0) g/dL RDW (11.5-15.5) % Plt Count (150-450) k/uL Neutrophils % % Lymphocytes % % Monocytes % % Eosinophils % % Basophils % % Neutrophils # (1.3-7.7) k/uL Lymphocytes # (1.0-4.8) k/uL Monocytes # (0-1.0) k/uL Eosinophils # (0-0.7) k/uL Basophils # (0-0.2) k/uL Hypochromasia Poikilocytosis Anisocytosis PT 11.2 (9.0-12.0) sec INR 1.2 H (<1.2) APTT 22.4 (22.0-30.0) sec Sodium (137-145) mmol/L Potassium (3.5-5.1) mmol/L Chloride (98-107) mmol/L Carbon Dioxide (22-30) mmol/L Anion Gap mmol/L BUN (9-20) mg/dL Creatinine (0.66-1.25) mg/dL Est GFR (CKD-EPI)AfAm (>60 ml/min/1.73 sqM) Est GFR (CKD-EPI)NonAf (>60 ml/min/1.73 sqM) Glucose (74-99) mg/dL Plasma Lactic Acid Delon 1.5 (0.7-2.0) mmol/L Calcium (8.4-10.2) mg/dL Magnesium (1.6-2.3) mg/dL Total Bilirubin (0.2-1.3) mg/dL AST (17-59) U/L ALT (21-72) U/L Alkaline Phosphatase (38-126) U/L Total Creatine Kinase (55-170) U/L CK-MB (CK-2) (0.0-2.4) ng/mL CK-MB (CK-2) Rel Index Troponin I (0.000-0.034) ng/mL NT-Pro-B Natriuret Pep 5220 pg/mL Total Protein (6.3-8.2) g/dL Albumin (3.5-5.0) g/dL Disposition <Albin Wolff - Last Filed: 07/23/18 15:35> <Pb Will - Last Filed: 07/23/18 15:51> Clinical Impression: Atrial fibrillation with RVR, Aspiration pneumonia, Hypokalemia, Hypomagnesemia , Nausea & vomiting, Hypoxia Disposition: ADMITTED IP TO THIS HOSP Condition: Critical Referrals: Baudilio De Leon MD [Primary Care Provider] - 1-2 days
[2018-07-23 14:02] LABS: INR 1.2 (<1.2); Partial Thromboplastin Time 22.4 sec (22.0-30.0); Prothrombin Time 11.2 sec (9.0-12.0)
[2018-07-23 14:07] LABS: Troponin I 0.019 ng/mL (0.000-0.034)
--- NOTE | 2018-07-23 14:53 | XR ---
EXAMINATION TYPE: XR chest 2V DATE OF EXAM: 07/23/2018 COMPARISON: 07/18/2018 HISTORY: Shortness of breath TECHNIQUE: Frontal and lateral views of the chest are obtained. FINDINGS: Scattered senescent parenchymal changes noted. Hyperinflation compatible with COPD. Patchy and somewhat nodular infiltrate involving most of the right lung. Small effusion is noted. Cor relate for pneumonia. The left lung is relatively clear and appears stable at this time. Heart size is stable. Mediastinal structures are stable and grossly unremarkable. No evidence for hilar prominence. Degenerative changes dorsal spine. IMPRESSION: 1. Patchy and somewhat nodular infiltrate involving most of the right lung. Small effusion is noted. Correlate for pneumonia.
[2018-07-23] MEDS ORDERED: POTASSIUM CHLORIDE ER 20 MEQ TAB.ER PO STA (15:24)
[2018-07-23] MEDS ORDERED: ALBUTEROL NEBULIZED 2.5 MG/3 ML INHALATION PRN (15:30)
[2018-07-23] MEDS ORDERED: PNEUMONIA PROTOCOL UTILIZED 1 EACH MISC PO PRN (15:30)
[2018-07-23] MEDS: DILTIAZEM 50 MG in SODIUM CHLORIDE 0.9% 40 ML IV SCH ×2 (15:46→23:29)
[2018-07-23] MEDS: MAGNESIUM SULFATE-D5W PMX 1 GM in DEXTROSE/WATER 1 100ML.BAG IVPB SCH ×2 (15:47→17:45)
[2018-07-23] MEDS ORDERED: HYDROmorphone 1 MG/ML 1 ML SYRINGE IVP PRN (20:51)
[2018-07-23] MEDS ORDERED: ONDANSETRON 4 MG/2 ML VIAL IVP PRN (20:52)
[2018-07-23] MEDS: PIPERACILLIN-TAZOBACTAM 3.375 GM in DEXTROSE/WATER 1 50ML.BAG IVPB SCH (23:29)
[2018-07-24 06:44] LABS: Anisocytosis Slight; Basophils % (A) 0 %; Eosinophils % (A) 0 %; Hypochromasia Marked; Lymphocytes # (A) 0.6 k/uL (1.0-4.8); Lymphocytes % (A) 4 %; MCH 28.5 pg (25.0-35.0); MCHC 31.2 g/dL (31.0-37.0); MCV 91.3 fL (80.0-100.0); Mean Platelet Volume 10.3; Monocytes # (A) 0.7 k/uL (0-1.0); Monocytes % (A) 5 %; Neutrophils # (A) 11.6 k/uL (1.3-7.7); Neutrophils % (A) 89 %; Platelet Count 121 k/uL (150-450); Poikilocytosis Slight; RBC 2.85 m/uL (4.30-5.90); RDW 16.6 % (11.5-15.5); WBC 13.1 k/uL (3.8-10.6)
[2018-07-24 06:52] LABS: HGB 8.1 gm/dL (13.0-17.5)
[2018-07-24 07:01] LABS: Calcium 9.1 mg/dL (8.4-10.2)
[2018-07-24] MEDS: PIPERACILLIN-TAZOBACTAM 3.375 GM in DEXTROSE/WATER 1 50ML.BAG IVPB SCH ×3 (09:07→23:39)
[2018-07-24] MEDS: DILTIAZEM 50 MG in SODIUM CHLORIDE 0.9% 40 ML IV SCH (09:09)
--- NOTE | 2018-07-24 10:01 | P.CRDCN ---
History of Present Illness Consult date: 07/24/18 Requesting physician: Baudilio De Leon Consult reason: atrial fibrillation Chief complaint: Shortness of breath History of present illness: This is a 77-year-old gentleman who follows regularly with Dr. VC Neville in the office. He has a known history of chronic persistent atrial fibrillation, ischemic cardiomyopathy, severe LV dysfunction with documented ejection fraction of 25-30%, history of myocardial infarction, history of EtOH use, several abnormal swallow evaluations, history of bladder and prostate CVA, who was just discharged from the hospital on the of this month returning back for admission the following day. Patient's recent admission to the hospital was for a UTI, prior to that he had a recent admission to the hospital with GI bleeding and hypovolemic shock at which time his anticoagulation was discontinued. Patient did have a recent negative colonoscopy performed and several months prior to that had a negative EGD. He presents to the hospital on this occasion with symptoms of shortness of breath. According to the patient , he had attempted to eat something although his appetite has been extremely poor recently, he started to vomit and states that he inhaled some of the emesis , shortly thereafter he states that he could not breathe at all. For this reason he came to the emergency room again for further evaluation. Chest x-ray on admission here showed patchy and somewhat nodular infiltrate involving most of the right lung. Small effusion is noted. Suggests possible pneumonia. EKG on arrival here shows atrial fibrillation with rapid ventricular response, nonspecific ST-T wave changes. Blood pressure on arrival here 86/40 with a heart rate in the 120s, 86% on room air. I pressure this morning 108/60 with a heart rate of 118, 96% on 2 L of oxygen. He is afebrile. White blood cell count 5.9 on admission, 13.1 this morning, hemoglobin on admission 9.9, 8.1 this morning. Platelet count 123 on admission, 121 this morning. Sodium 142 on admission potassium 3.4, BUN 7, creatinine 1.1. Magnesium 1.3. Troponin 0.019. BNP level 5220. Potassium on admission 3.4, 4.0 this morning. Patient is currently on IV Cardizem drip at 5 mg per hour. Past Medical History Past Medical History: Atrial Fibrillation, Cancer, GI Bleed, Myocardial Infarction ([place]) Additional Past Medical History / Comment(s): bladder ca, prostate ca had sx( urostomy) and 1 round of chemo in , afib, [place], hemorhoids, pt stated he was told by a dr that he had an enlarged heart, [place],uti, duedenal ulcer Last Myocardial Infarction Date:: 2002 History of Any Multi-Drug Resistant Organisms: ESBL Date of last positivie culture/infection: 07/18/18 MDRO Source:: URINE ESBL Past Surgical History: Adenoidectomy, Tonsillectomy Additional Past Surgical History / Comment(s): 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, nephrostomy tubes,egd Past Anesthesia/Blood Transfusion Reactions: No Reported Reaction Smoking Status: Current every day smoker - Past Family History Father Family Medical History: No Reported History Mother Family Medical History: Cancer Additional Family Medical History / Comment(s): from cancer age 60(pt not sure what kind of cancer) Medications and Allergies Home Medications Medication Instructions Recorded Confirmed Type Isosorbide Mononitrate [Isosorbide 30 mg PO DAILY 01/02/16 07/23/18 History Mononitrate ER] Metoprolol Tartrate [Lopressor] 75 mg PO BID 05/04/18 07/23/18 History Ferrous Sulfate [Feosol] 325 mg PO TID 06/16/18 07/23/18 History Omeprazole 20 mg PO BID 06/16/18 07/23/18 History Spironolactone [Aldactone] 25 mg PO DAILY 06/16/18 07/23/18 History Ipratropium-Albuterol Nebulize 3 ml INHALATION RT-BID 07/18/18 07/23/18 History [Duoneb 0.5 mg-3 mg/3 ml Soln] Iron Polysaccharides Complex 300 mg PO DAILY@1200 #100 cap 07/22/18 07/23/18 Rx [Niferex-150] Amoxic-Pot Clav 875-125Mg 1 tab PO Q12HR 07/23/18 07/23/18 History [Augmentin 875-125] Allergies Allergy/AdvReac Type Severity Reaction Status Date / Time No Known Allergies Allergy Verified 07/23/18 13:32 Physical Exam Vitals: Vital Signs Temp Pulse Pulse Resp BP BP Pulse Ox 07/24/18 08:00 97.6 F 118 H 18 108/68 96 07/24/18 04:00 97.1 F L 103 H 18 127/49 96 07/24/18 00:00 97.9 F 87 18 113/70 96 07/23/18 20:00 126 H 18 128/79 98 07/23/18 16:30 115 H 23 112/67 92 L 07/23/18 16:00 163 H 13 84 L 07/23/18 15:31 92 L 07/23/18 15:30 141 H 27 H 99 07/23/18 15:29 147 H 22 07/23/18 15:18 136 H 22 07/23/18 15:15 134 H 24 100/57 90 L 07/23/18 15:00 156 H 15 137/68 88 L 07/23/18 14:53 125 H 20 137/68 95 07/23/18 12:58 97.8 F 106 H 22 85/49 86 L Intake and Output 07/23/18 07/24/18 07/24/18 22:59 06:59 14:59 Intake Total 538.583 48.333 Output Total 150 Balance 388.583 48.333 Intake: Intake, IV Titration 538.583 48.333 Amount Diltiazem 50 mg In Sodium 38.583 48.333 Chloride 0.9% 40 ml @ 5 MG/HR 5 mls/hr IV .Q10H OLIVE Rx#:[id number] Levofloxacin 750Mg-D5w 150 Pmx 750 mg In Dextrose/ Water 1 150ml.bag @ 100 mls/hr IVPB ONCE STA Rx#: [id number] Levofloxacin 750Mg-D5w 150 Pmx 750 mg In Dextrose/ Water 1 150ml.bag @ 100 mls/hr IVPB Q24H OLIVE Rx#: [id number] Magnesium Sulfate-D5w Pmx 100 1 gm In Dextrose/Water 1 100ml.bag @ 100 mls/hr IVPB Q1H OLIVE Rx#: [id number] Piperacillin-Tazobactam 3 50 .375 gm In Dextrose/Water 1 50ml.bag @ 12.5 mls/hr IVPB ONCE STA Rx#: [id number] Piperacillin-Tazobactam 3 50 .375 gm In Dextrose/Water 1 50ml.bag @ 12.5 mls/hr IVPB Q8HR OLIVE Rx#: [id number] Oral 0 0 Output: Urine 150 Other: Voiding Method Ileal Conduit (Right) Ileal Conduit (Right) Ileal Conduit ( Right) Ileal Conduit (Left) Ileal Conduit (Left) Ileal Conduit (Left) # Voids 1 0 Weight 92.986 kg 97.2 kg PHYSICAL EXAMINATION: GENERAL: 77-year-old gentleman in no acute distress at the time of my examination HEENT: Head is atraumatic, normocephalic. Pupils equal, round. Sclera anicteric. Conjunctiva are clear. Mucous membranes of the mouth are moist. Neck is supple. There is no elevated jugular venous pressure. No carotid bruit is heard. HEART EXAMINATION: Heart S1 and S2 irregularly irregular CHEST EXAMINATION: Lungs reveal scattered coarse rhonchi throughout. ABDOMEN: Soft, nontender. Bowel sounds are heard. No organomegaly noted. EXTREMITIES: 2+ peripheral pulses with trace to 1+ right leg greater than the left evidence of peripheral edema . NEUROLOGIC patient is awake, alert and oriented 3 . . Results 07/24/18 06:00 07/24/18 06:00 Cardiac Enzymes 07/23/18 07/23/18 Range/Units 13:14 13:14 AST 20 (17-59) U/L CK-MB (CK-2) 1.0 (0.0-2.4) ng/mL Troponin I 0.019 (0.000-0.034) ng/mL Coagulation 07/23/18 Range/Units 13:14 PT 11.2 (9.0-12.0) sec APTT 22.4 (22.0-30.0) sec CBC 07/23/18 07/24/18 Range/Units 13:14 06:00 WBC 5.9 13.1 H (3.8-10.6) k/uL RBC 3.50 L 2.85 L (4.30-5.90) m/uL Hgb 9.9 L D 8.1 L D (13.0-17.5) gm/dL Hct 31.6 L 26.0 L (39.0-53.0) % Plt Count 123 L 121 L (150-450) k/uL Comprehensive Metabolic Panel 07/23/18 07/24/18 Range/Units 13:14 06:00 Sodium 142 142 (137-145) mmol/L Potassium 3.4 L 4.0 (3.5-5.1) mmol/L Chloride 111 H 110 H (98-107) mmol/L Carbon Dioxide 23 24 (22-30) mmol/L BUN 7 L 11 (9-20) mg/dL Creatinine 1.16 1.22 (0.66-1.25) mg/dL Glucose 127 H 136 H (74-99) mg/dL Calcium 9.5 9.1 (8.4-10.2) mg/dL AST 20 (17-59) U/L ALT 15 L (21-72) U/L Alkaline Phosphatase 61 (38-126) U/L Total Protein 6.7 (6.3-8.2) g/dL Albumin 3.5 (3.5-5.0) g/dL Current Medications Generic Name Dose Route Start Last Admin Trade Name Freq PRN Reason Stop Dose Admin Albuterol Sulfate 2.5 mg 07/23/18 15:30 Ventolin Nebulized INHALATION Q2HR PRN Dyspnea Albuterol/Ipratropium 3 ml 07/23/18 15:30 Duoneb 0.5 Mg-3 Mg/3 Ml Soln INHALATION RT-Q4H PRN shortness of breath Hydromorphone HCl 0.5 mg 07/23/18 20:51 07/23/18 21:09 Dilaudid IVP 0.5 mg Q4HR PRN Administration Pain Diltiazem HCl 50 mg/ Sodium 50 mls @ 5 mls/hr 07/23/18 15:30 07/24/18 09:09 Chloride IV 5 mg/hr .Q10H OLIVE 5 mls/hr Administration 5 MG/HR Levofloxacin 750 mg/ IV 150 mls @ 100 mls/hr 07/24/18 16:00 Solution IVPB 08/05/18 16:01 Q24H OLIVE Piperacillin/Tazobactam/ 50 mls @ 12.5 mls/hr 07/24/18 00:00 07/24/18 09:07 Dextrose 3.375 gm/ IV Solution IVPB 08/02/18 00:01 12.5 mls/hr Q8HR OLIVE Administration Magnesium Sulfate/Dextrose 1 100 mls @ 100 mls/hr 07/24/18 09:30 gm/ IV Solution IVPB 07/24/18 11:29 Q1H OLIVE Miscellaneous Information 1 each 10/26/18 15:30 Pneumonia Protocol Utilized PO ONCE PRN Per Protocol Ondansetron HCl 4 mg 07/23/18 20:52 07/23/18 21:09 Zofran IVP 4 mg Q6HR PRN Administration Nausea And Vomiting Intake and Output 07/23/18 07/24/18 07/24/18 22:59 06:59 14:59 Intake Total 538.583 48.333 Output Total 150 Balance 388.583 48.333 Intake: Intake, IV Titration 538.583 48.333 Amount Diltiazem 50 mg In Sodium 38.583 48.333 Chloride 0.9% 40 ml @ 5 MG/HR 5 mls/hr IV .Q10H OLIVE Rx#:[id number] Levofloxacin 750Mg-D5w 150 Pmx 750 mg In Dextrose/ Water 1 150ml.bag @ 100 mls/hr IVPB ONCE STA Rx#: [id number] Levofloxacin 750Mg-D5w 150 Pmx 750 mg In Dextrose/ Water 1 150ml.bag @ 100 mls/hr IVPB Q24H OLIVE Rx#: [id number] Magnesium Sulfate-D5w Pmx 100 1 gm In Dextrose/Water 1 100ml.bag @ 100 mls/hr IVPB Q1H OLIVE Rx#: [id number] Piperacillin-Tazobactam 3 50 .375 gm In Dextrose/Water 1 50ml.bag @ 12.5 mls/hr IVPB ONCE STA Rx#: [id number] Piperacillin-Tazobactam 3 50 .375 gm In Dextrose/Water 1 50ml.bag @ 12.5 mls/hr IVPB Q8HR OLIVE Rx#: [id number] Oral 0 0 Output: Urine 150 Other: Voiding Method Ileal Conduit (Right) Ileal Conduit (Right) Ileal Conduit ( Right) Ileal Conduit (Left) Ileal Conduit (Left) Ileal Conduit (Left) # Voids 1 0 Weight 92.986 kg 97.2 kg 07/24/18 06:00 07/24/18 06:00 EKG Interpretations (text) EKG shows atrial fibrillation with rapid ventricular response and nonspecific ST -T wave changes. Assessment and Plan Plan: Assessment and plan #1 symptoms of fairly sudden onset of shortness of breath, chest x-ray reveals pneumonia, possible aspiration pneumonia. #2 recent hospitalization with UTI and sepsis #3 chronic persistent atrial fibrillation, anticoagulation discontinued on a recent admission secondary to GI bleed #4 anemia #5 hypotension #6 history of EtOH #7 anemia with recent GI bleed. Patient did have recent colonoscopy and EGD performed, colonoscopy was performed on June 22 and revealed a normal appearing: From the rectum to the descending colon and further advancement cannot be achieved in spite of several attempts. No masses or pathology to explain anemia were noted at that time. EGD was performed in April which revealed nonbleeding duodenal ulcers. #8 history of bladder and colon cancer #9 nicotine dependence #10 ischemic cardiomyopathy, most recent echo was performed in April of this year and revealed an ejection fraction of 25-30% moderate MR moderate TR #11 prior myocardial infarction history #12 hypomagnesemia #13 hypokalemia #14 mild systolic congestive heart failure acute on chronic Plan We'll discontinue the IV Cardizem, and resume the patient's beta radha which he takes at home. Check TSH level. Replace magnesium. Patient's most recent echo was performed in April. We will repeat an echo this admission. Patient currently not on anticoagulation because of his recent GI bleed. Hemoglobin this morning 8.1. Resume Aldactone. Replace potassium. Further recommendations to follow. DNP note has been reviewed, I agree with a documented findings and plan of care. Patient was seen and examined.
[2018-07-24] MEDS: MAGNESIUM SULFATE-D5W PMX 1 GM in DEXTROSE/WATER 1 100ML.BAG IVPB SCH ×2 (11:52→13:32)
[2018-07-24] MEDS: methylPREDNISolone SOD SUCCI 125 MG/2 ML VIAL IV SCH ×3 (11:53→23:39)
--- NOTE | 2018-07-24 13:53 | HP ---
HISTORY AND PHYSICAL DATE OF ADMISSION: 07/23/2018 CHIEF COMPLAINT: Difficulty breathing. HISTORY OF PRESENT ILLNESS: This is another admission for this 77-year-old white male who was just discharged. His problems started a month or 2 ago with massive upper gastrointestinal hemorrhage and hypovolemic shock which then led to acute renal failure. This was complicated by the fact that he had ureteral obstruction where his ureters were implanted in an ileal loop after he had a radical cystectomy for cancer many years ago. He has been in and out of the hospital since. He recently went home, remembers falling asleep and then waking up knowing that he had had an episode of reflux and had aspirated gastric contents and was not able to breathe. REVIEW OF SYSTEMS: Otherwise unchanged. He does not have any confusion, chest pain, etc. He has had no blood in the stool. Past medical history, family history, and personal and social histories are all otherwise unchanged. PHYSICAL EXAMINATION: Blood pressure is 101/54 with a pulse of 93, respirations of 39, and he is afebrile. In general, he appeared to be pale and dyspneic. Head, ears, eyes, nose, mouth and throat were normal. Chest demonstrated decreased breath sounds with wheezes, rales and rhonchi bilaterally. Cardiac exam demonstrated atrial fibrillation with a rapid ventricular response. The abdomen was slightly protuberant and slightly tender over the epigastrium, but there were no masses. Extremities were normal. Neurologically he was intact. IMPRESSION: 1. Aspiration pneumonia. 2. Gastroesophageal reflux. 3. History of upper gastrointestinal hemorrhage with hypovolemic shock and blood loss anemia. 4. Atrial fibrillation. 5. Congestive heart failure. PLAN: 1. Bed rest. 2. IV fluids. 3. N.p.o. 4. Updrafts and IV antibiotics. 5. Consult Cardiology and Pulmonology. MMODL / IJN: [id number] /
--- NOTE | 2018-07-24 13:56 | PN ---
PROGRESS NOTE CHIEF COMPLAINT: Aspiration pneumonia and epigastric pain. HISTORY OF PRESENT ILLNESS: This gentleman is doing better. His breathing has improved. He is less short of breath. He is still complaining of some epigastric pain. PHYSICAL EXAMINATION: Breath sounds are diminished with occasional rales and rhonchi. Cardiac exam demonstrates atrial fibrillation. The abdomen is a little bit distended. He is slightly tender over the upper abdominal area. Bowel sounds are present. IMPRESSION: 1. Aspiration pneumonia. 2. Upper abdominal discomfort. 3. Anemia. 4. Status post upper gastrointestinal bleed. 5. Congestive heart failure. PLAN: 1. Consult with Gastroenterology for possible upper GI endoscopy. 2. Continue IV fluids, antibiotics and updrafts. MMODL / IJN: [id number] /
--- NOTE | 2018-07-24 14:30 | XR ---
EXAMINATION TYPE: XR chest 2V DATE OF EXAM: 07/24/2018 COMPARISON: Yesterday HISTORY: Pneumonia TECHNIQUE: Frontal and lateral views of the chest are obtained. FINDINGS: There is pulmonary vascular congestion. There is some consolidation in the right lower lob e. There are chest leads. There is some blunting of costophrenic angles. IMPRESSION: Congestive heart failure unchanged. Increasing right lower lobe pneumonia compared to .
[2018-07-24] MEDS: LEVOFLOXACIN 750MG-D5W PMX 750 MG in DEXTROSE/WATER 1 150ML.BAG IVPB SCH (15:28)
[2018-07-24] MEDS: FERROUS SULFATE 325 MG TAB PO SCH ×2 (15:28→20:04)
--- NOTE | 2018-07-24 15:47 | P.CNPUL ---
History of Present Illness Consult date: 07/24/18 Requesting physician: Baudilio De Leon Reason for consult: dyspnea, abnormal CXR/CT Chief complaint: Nausea, vomiting, aspiration History of present illness: This is a very pleasant 77-year-old gentleman who has a significant complicated multiple medical history including recent gastrointestinal bleeding, bladder cancer, prostate cancer status post urostomy with obstruction status post nephrostomy tube placement bilaterally. He has a history of myocardial infarction, atrial fibrillation and has been off his anticoagulants since last admission. He also has a significant history of chronic and ongoing tobacco dependence along with daily alcohol use. He has severe left ventricular systolic dysfunction with ejection fraction 25-30%. He was admitted again yesterday after less than 24 hours of being post discharge for continued ongoing nausea and vomiting. He states he is resting comfortably on his couch and dozing off and awoke to himself vomiting and did aspirate and choke on his stomach contents. He states these were all liquids. No food product. Mostly bile. Chest x-ray does show evidence of right lower lobe infiltrate secondary to aspiration. There is ongoing congestive heart failure as well. He is seen today in consultation on the selective care unit. Currently he is resting fairly comfortably in bed he is laying flat. No worsening shortness of breath, cough or congestion. He is maintaining good O2 saturations in the mid 90s on 2 L/m per nasal cannula. White count 13.1. Hemoglobin 8.1. Creatinine 1.22. ProBNP 5220. He has been initiated on DuoNeb inhalations, Levaquin and Zosyn. Review of Systems Constitutional: Reports chronic pain, Reports poor appetite, Reports weight loss Eyes: denies blurred vision, denies decreased vision Ears: deny: decreased hearing Cardiovascular: Reports dyspnea on exertion, Reports irregular heart beat, Reports shortness of breath Respiratory: Reports cough, Reports dyspnea, Reports wheezing Gastrointestinal: Reports abdominal pain, Reports belching, Reports nausea, Reports vomiting Genitourinary: Reports dysuria, Reports flank pain Musculoskeletal: Reports morning stiffness Integumentary: Reports color changes Neurological: Denies numbness, Denies weakness Psychiatric: Denies anxiety, Denies depression Endocrine: Denies fatigue, Denies weight change Hematologic/Lymphatic: Reports as per HPI Allergic/Immunologic: Reports as per HPI Past Medical History Past Medical History: Atrial Fibrillation, Cancer, GI Bleed, Myocardial Infarction (PR) Additional Past Medical History / Comment(s): bladder ca, prostate ca had sx( urostomy) and 1 round of chemo in , afib, anvik, hemorhoids, pt stated he was told by a dr that he had an enlarged heart, anvik,uti, duedenal ulcer Last Myocardial Infarction Date:: 2002 History of Any Multi-Drug Resistant Organisms: ESBL Date of last positivie culture/infection: 07/18/18 MDRO Source:: URINE ESBL Past Surgical History: Adenoidectomy, Tonsillectomy Additional Past Surgical History / Comment(s): 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, nephrostomy tubes,egd Past Anesthesia/Blood Transfusion Reactions: No Reported Reaction Smoking Status: Current every day smoker - Past Family History Father Family Medical History: No Reported History Mother Family Medical History: Cancer Additional Family Medical History / Comment(s): from cancer age 60(pt not sure what kind of cancer) Medications and Allergies Home Medications Medication Instructions Recorded Confirmed Type Isosorbide Mononitrate [Isosorbide 30 mg PO DAILY 01/02/16 07/23/18 History Mononitrate ER] Metoprolol Tartrate [Lopressor] 75 mg PO BID 05/04/18 07/23/18 History Ferrous Sulfate [Feosol] 325 mg PO TID 06/16/18 07/23/18 History Omeprazole 20 mg PO BID 06/16/18 07/23/18 History Spironolactone [Aldactone] 25 mg PO DAILY 06/16/18 07/23/18 History Ipratropium-Albuterol Nebulize 3 ml INHALATION RT-BID 07/18/18 07/23/18 History [Duoneb 0.5 mg-3 mg/3 ml Soln] Iron Polysaccharides Complex 300 mg PO DAILY@1200 #100 cap 07/22/18 07/23/18 Rx [Niferex-150] Amoxic-Pot Clav 875-125Mg 1 tab PO Q12HR 07/23/18 07/23/18 History [Augmentin 875-125] Allergies Allergy/AdvReac Type Severity Reaction Status Date / Time No Known Allergies Allergy Verified 07/23/18 13:32 Physical Exam Vitals: Vital Signs Temp Pulse Pulse Resp BP BP Pulse Ox 07/24/18 12:00 116 H 18 114/64 96 07/24/18 08:00 97.6 F 118 H 18 108/68 96 07/24/18 04:00 97.1 F L 103 H 18 127/49 96 07/24/18 00:00 97.9 F 87 18 113/70 96 07/23/18 20:00 126 H 18 128/79 98 07/23/18 16:30 115 H 23 112/67 92 L 07/23/18 16:00 163 H 13 84 L 07/23/18 15:31 92 L 07/23/18 15:30 141 H 27 H 99 07/23/18 15:29 147 H 22 Intake and Output 07/24/18 07/24/18 07/24/18 06:59 14:59 22:59 Intake Total 538.583 48.333 Output Total 150 225 Balance 388.583 -176.667 Intake: Intake, IV Titration 538.583 48.333 Amount Diltiazem 50 mg In Sodium 38.583 48.333 Chloride 0.9% 40 ml @ 5 MG/HR 5 mls/hr IV .Q10H [facility] Rx#:[id number] Levofloxacin 750Mg-D5w 150 Pmx 750 mg In Dextrose/ Water 1 150ml.bag @ 100 mls/hr IVPB ONCE STA Rx#: [id number] Levofloxacin 750Mg-D5w 150 Pmx 750 mg In Dextrose/ Water 1 150ml.bag @ 100 mls/hr IVPB Q24H [facility] Rx#: [id number] Magnesium Sulfate-D5w Pmx 100 1 gm In Dextrose/Water 1 100ml.bag @ 100 mls/hr IVPB Q1H [facility] Rx#: [id number] Piperacillin-Tazobactam 3 50 .375 gm In Dextrose/Water 1 50ml.bag @ 12.5 mls/hr IVPB ONCE STA Rx#: [id number] Piperacillin-Tazobactam 3 50 .375 gm In Dextrose/Water 1 50ml.bag @ 12.5 mls/hr IVPB Q8HR [facility] Rx#: [id number] Oral 0 0 Output: Urine 150 225 Other: Voiding Method Ileal Conduit (Right) Ileal Conduit (Right) Ileal Conduit (Left) Ileal Conduit (Left) # Voids 0 # Bowel Movements 1 Weight 97.2 kg - Constitutional General appearance: cooperative, mild distress - EENT Eyes: EOMI, PERRLA ENT: hearing grossly normal Ears: bilateral: normal - Neck Carotids: bilateral: upstroke normal Thyroid: bilateral: normal size - Respiratory Respiratory: right: rhonchi, bilateral: rales, wheezing - Cardiovascular Rhythm: irregularly irregular Heart sounds: normal: S1, S2 - Gastrointestinal General gastrointestinal: normal bowel sounds - Integumentary Integumentary: normal turgor - Neurologic Neurologic: CNII-XII intact - Musculoskeletal Musculoskeletal: generalized weakness - Psychiatric Psychiatric: A&O x's 3, appropriate affect Results - Laboratory Findings CBC and BMP: 07/24/18 06:00 07/24/18 06:00 PT/INR, D-dimer PT 11.2 sec (9.0-12.0) 07/23/18 13:14 INR 1.2 (<1.2) H 07/23/18 13:14 Abnormal lab findings: Abnormal Labs 07/23/18 07/23/18 07/23/18 13:14 13:14 13:14 WBC RBC 3.50 L Hgb 9.9 L D Hct 31.6 L RDW 16.6 H Plt Count 123 L Neutrophils # Lymphocytes # 0.5 L INR Potassium 3.4 L Chloride 111 H BUN 7 L Glucose 127 H Magnesium 1.3 L ALT 15 L Total Creatine Kinase 34 L 07/23/18 07/24/18 07/24/18 13:14 06:00 06:00 WBC 13.1 H RBC 2.85 L Hgb 8.1 L D Hct 26.0 L RDW 16.6 H Plt Count 121 L Neutrophils # 11.6 H Lymphocytes # 0.6 L INR 1.2 H Potassium Chloride 110 H BUN Glucose 136 H Magnesium ALT Total Creatine Kinase - Diagnostic Findings Chest x-ray: image reviewed Assessment and Plan Assessment: Impression: #1 Acute hypoxic respiratory failure secondary to an acute aspiration secondary to vomiting. #2 Recent admission for nausea and vomiting. #3 Recent admissions for acute on chronic GI bleeding. #4 Chronic atrial fibrillation, currently off warfarin. #5 Acute on chronic renal injury secondary to chronic cardiorenal syndrome. #6 Ischemic cardiomyopathy with ejection fraction 20-30%. #7 History of bladder and prostate cancer and ileostomy nonfunctioning. Bilateral nephrostomy tubes in place. #8 History of chronic tobacco dependence. #9 Chronic obstructive pulmonary disease. #10 History of alcohol use. Plan: The patient was seen and evaluated by Dr. Bhatt. X-ray and labs were reviewed. We'll continue with DuoNeb inhalations, IV Solu-Medrol, antibiotics in the form of Zosyn and Levaquin. We will repeat a chest x-ray in the a.m. We 'll continue to follow and make further recommendations based on his clinical status. I, the cosigning physician, performed a history & physical examination of the patient. Lungs sounds scattered rhonchi more so on the right, crackles in the posterior bases.. Maintaining good O2 saturations in the 90s on 2 L/m per nasal. I discussed the assessment and plan of care with my nurse practitioner, Octavia Wu. I attest to the above consultation as dictated by her. Time with Patient: Greater than 30
--- NOTE | 2018-07-24 16:41 | ECHOF ---
Referral Reason:afib MEASUREMENTS -------- HEIGHT: 182.9 cm WEIGHT: 93.9 kg BP: RVIDd: 3.9 cm (< 3.3) IVSd: 1.0 cm (0.6 - 1.1) LVIDd: 5.0 cm (3.9 - 5.3) LVPWd: 1.0 cm (0.6 - 1.1) IVSs: 1.3 cm LVIDs: 4.1 cm LVPWs: 1.4 cm Ao Diam: 3.7 cm (2.0 - 3.7) AV Cusp: 1.0 cm (1.5 - 2.6) LA Diam: 3.4 cm (2.7 - 3.8) AV maxP.46 mmHg AV meanP.36 mmHg RAP: 5.00 mmHg RVSP: 31.78 mmHg FINDINGS -------- Atrial fibrillation. This was a technically difficult study with suboptimal views. The left ventricular size is normal. Left ventricular wall thickness is normal. There is moderate global hypokinesis of LV . Overall left ventricular systolic function is mild-moderately impaired with, an EF between 40 - 45 %. The right ventricle is mildly enlarged. The left atrial size is normal. The right atrium is normal in size. Lumason used There is mild aortic valve sclerosis. There is mild aortic stenosis present. Peak/mean gradient a cross the Aortic Valve is 16.46mmHg / 11.36mmHg. The mitral valve leaflets are mildly thickened. Mild mitral regurgitation is present. Mild tricuspid regurgitation present. There is no evidence of pulmonary hypertension. The right v entricular systolic pressure, as measured by Doppler, is 31.78mmHg. The pulmonic valve was not well visualized. There is no pulmonic regurgitation present. The aortic root size is normal. There is no pericardial effusion. CONCLUSIONS -------- 1. Atrial fibrillation. 2. This was a technically difficult study with suboptimal views. 3. The left ventricular size is normal. 4. Left ventricular wall thickness is normal. 5. There is moderate global hypokinesis of LV . 6. Overall left ventricular systolic function is mild-moderately impaired with, an EF between 40 - 45 %. 7. The right ventricle is mildly enlarged. 8. The left atrial size is normal. 9. Lumason used 10. There is mild aortic valve sclerosis. 11. There is mild aortic stenosis present. 12. Peak/mean gradient across the Aortic Valve is 16.46mmHg / 11.36mmHg. 13. The mitral valve leaflets are mildly thickened. 14. Mild mitral regurgitation is present. 15. Mild tricuspid regurgitation present. 16. There is no evidence of pulmonary hypertension. 17. There is no pulmonic regurgitation present. 18. The aortic root size is normal. 19. There is no pericardial effusion. KNIFE GLAZER: Tiffanie Guadarrama RDCS
[2018-07-24] MEDS: IPRATROPIUM-ALBUTEROL 3 ML NEB INHALATION SCH (19:41)
[2018-07-24] MEDS: METOPROLOL TARTRATE 25 MG TAB PO SCH (20:01)
[2018-07-25] MEDS: methylPREDNISolone SOD SUCCI 125 MG/2 ML VIAL IV SCH ×3 (06:28→17:24)
[2018-07-25] MEDS: PANTOPRAZOLE 40 MG TABLET PO SCH (06:28)
[2018-07-25 06:41] LABS: Calcium 9.3 mg/dL (8.4-10.2); Potassium 4.5 mmol/L (3.5-5.1)
[2018-07-25] MEDS: FERROUS SULFATE 325 MG TAB PO SCH ×3 (08:33→20:54)
[2018-07-25] MEDS: METOPROLOL TARTRATE 25 MG TAB PO SCH ×2 (08:33→20:54)
[2018-07-25] MEDS: SPIRONOLACTONE 25 MG TAB PO SCH (08:33)
[2018-07-25] MEDS: IPRATROPIUM-ALBUTEROL 3 ML NEB INHALATION SCH ×2 (08:44→20:57)
[2018-07-25] MEDS: PIPERACILLIN-TAZOBACTAM 3.375 GM in DEXTROSE/WATER 1 50ML.BAG IVPB SCH ×2 (09:23→15:41)
[2018-07-25] MEDS: IPRATROPIUM-ALBUTEROL 3 ML NEB INHALATION PRN (11:54)
[2018-07-25 13:29] LABS: Anisocytosis Slight; Basophils % (A) 0 %; Eosinophils % (A) 0 %; HCT 28.3 % (39.0-53.0); HGB 8.4 gm/dL (13.0-17.5); Hypochromasia Marked; Lymphocytes # (A) 0.7 k/uL (1.0-4.8); Lymphocytes % (A) 9 %; MCH 28.1 pg (25.0-35.0); MCHC 29.6 g/dL (31.0-37.0); MCV 94.9 fL (80.0-100.0); Monocytes # (A) 0.3 k/uL (0-1.0); Monocytes % (A) 3 %; Neutrophils # (A) 6.6 k/uL (1.3-7.7); Neutrophils % (A) 87 %; Platelet Count 127 k/uL (150-450); RBC 2.98 m/uL (4.30-5.90); RDW 16.6 % (11.5-15.5); WBC 7.6 k/uL (3.8-10.6)
[2018-07-25 13:32] LABS: Albumin 3.2 g/dL (3.5-5.0); Bilirubin, Delta 0.4 mg/dL (0.0-0.2); Total Bilirubin 0.4 mg/dL (0.2-1.3); Total Protein 6.4 g/dL (6.3-8.2)
--- NOTE | 2018-07-25 13:55 | XR ---
EXAMINATION TYPE: XR chest 2V DATE OF EXAM: 07/25/2018 HISTORY: pneumnitis. REFERENCE: Previous study dated 07/24/2018. FINDINGS: The heart is enlarged. There is a worsening right lower lobe infiltrate. There is also left basilar infiltrate. There are bilateral effusions. There is interstitial change, greater on the righ t than the left. Pulmonary vasculature is mildly pronounced. IMPRESSION: 1. BIBASILAR INFILTRATES, GREATER ON THE RIGHT THAN THE LEFT. 2. SMALL, BILATERAL EFFUSIONS. 3. CARDIOMEGALY. 4. I CANNOT EXCLUDE A MILD DEGREE OF HEART FAILURE.
--- NOTE | 2018-07-25 14:03 | CONS ---
CONSULTATION DATE OF SERVICE: 07/25/2018. REQUESTING PHYSICIAN: Dr. De Leon. REASON FOR CONSULTATION: Epigastric pain/nausea and vomiting. HISTORY OF PRESENT ILLNESS: The patient is a 76-year-old pleasant white male with multiple hospitalizations in the last 3 months duration. He has history of GI bleed, congestive heart failure, coronary artery disease status post [place] in the past, atrial fibrillation, who has been off anticoagulation since his last admission. During one of his hospitalization in May 2018, he was admitted with severe symptomatic anemia. He underwent an upper endoscopy by Dr. Adams and was noted to have multiple small gastric ulcers and duodenal ulcers. Subsequently during the same hospitalization, he had an attempted colonoscopy up to the descending colon that was unremarkable. The patient, since then, had 2 hospitalizations with ongoing GI symptoms. He was just discharged home 2 days ago, now he presents back to the hospital with epigastric pain associated with nausea and vomiting. He has several episodes of emesis but no coffee ground emesis. The pain is worse in the postprandial period. It is mostly located in the epigastric area. He denies any melena. No rectal bleeding. He has been maintained on Prilosec 20 mg daily for peptic ulcer disease. During this hospitalization, hemoglobin was 8.1 g/dL. PAST MEDICAL HISTORY: Significant for atrial fibrillation, history of coronary artery disease status post [place], history of bladder cancer with resection and ileal conduit, history of peptic ulcer disease. PAST SURGICAL HISTORY: Adenoidectomy, tonsillectomy, bladder cancer with resection, history of prostatectomy with ileal conduit, attempted colonoscopy in May 2018. MEDICATIONS: At home include omeprazole, Feosol, DuoNeb, Niferex, Augmentin, Isordil, metoprolol. ALLERGIES: None. SOCIAL HISTORY: No smoking. No alcohol use. FAMILY HISTORY: Father unremarkable. Mother had some cancer. REVIEW OF SYSTEMS: CARDIOPULMONARY: No chest pain or shortness of breath. GENITOURINARY: No hematuria or dysuria. MUSCULOSKELETAL: Unremarkable. SKIN: No rashes. ENDOCRINE: Unremarkable. PSYCHIATRIC: Unremarkable. NEUROLOGIC: Unremarkable. ENT: Unremarkable. CONSTITUTIONAL: No symptoms of weight loss. No fevers or chills. PHYSICAL EXAMINATION: GENERAL: Appears comfortable, no apparent distress. VITAL SIGNS: Stable. Blood pressure 125/68, pulse 90, temperature 97.7. HEENT: Unremarkable. Conjunctivae pink. Sclerae anicteric. Oral cavity no lesions. NECK: No JVD, no lymph node enlargement. CHEST: Clear to auscultation. HEART: Regular rate and rhythm. ABDOMEN: Soft. Mild tenderness in the epigastric area. Bowel sounds positive. No organomegaly. EXTREMITIES: No pedal edema. SKIN: No rashes. NEURO: Alert, oriented x3. NO focal deficits. LABS: Done at the time of admission to the hospital, WBC 13.1, hemoglobin 8.1, platelets 131,000. Basic metabolic, BUN 7, creatinine 1.60. The rest of the labs are unremarkable. IMPRESSION: 1. Epigastric pain with nausea and vomiting in the postprandial period for the last 2 weeks duration. The patient was admitted with gastrointestinal bleed in May 2018. He had an upper endoscopy done by Dr. Adams, which revealed multiple small gastric and duodenal ulcers. He has been maintained on Prilosec 20 mg daily since then, but for the last 2 weeks has been having symptoms of epigastric discomfort, worse in the postprandial period. 2. Anemia with no active gastrointestinal bleed. 3. Atrial fibrillation. Anticoagulation on hold since his last hospitalization. RECOMMENDATIONS: Continue IV Protonix. Keep on clear liquid diet. We will proceed with an EGD tomorrow. Discussed with the patient the risks, benefits and complications of the procedure and he is agreeable to it. Thank you for this consultation. MMODL / IJN: [id number] /
--- NOTE | 2018-07-25 14:28 | P.PN ---
Subjective Mr. Raygoza is a pleasant 77-year-old male past medical history significant for chronic persistent atrial fibrillation, ischemic cardiomyopathy , severe LV dysfunction last documented ejection fraction 25-30% most recently improved on echo read on this admission 40-45%, history of EtOH use, history of bladder and prostate cancer. He presents to the hospital with symptoms of abdominal pain, nausea and vomiting. Apparently he was laying on the couch sleeping when he started vomiting and there is questionable aspiration pneumonia. He has been seen in consultation by GI services and has plans for EGD tomorrow. He continues to complain of shortness of breath and epigastric discomfort. He denies chest pain, dizziness or palpitations. Blood pressure 117/64 heart rate 97 afebrile maintaining oxygen saturation on nasal cannula. Laboratory data reviewed, hemoglobin 8.4, platelets 127. Currently maintained on metoprolol 75 mg twice a day and Aldactone 25 mg daily. GENERAL: Well-appearing, well-nourished and in no acute distress. NECK: Supple without JVD or thyromegaly. LUNGS: Bibasilar rales noted, coarse rhonchi noted worse on the right. Expiratory wheeze heard throughout. Respiration equal and unlabored. HEART: Irregular rate and rhythm without murmurs, rubs or gallops. S1 and S2 heard. EXTREMITIES: Normal range of motion, no edema. No clubbing or cyanosis. Peripheral pulses intact. ASSESSMENT #1 symptoms of fairly sudden onset of shortness of breath, chest x-ray reveals pneumonia, possible aspiration pneumonia. #2 recent hospitalization with UTI and sepsis #3 chronic persistent atrial fibrillation, anticoagulation discontinued on a recent admission secondary to GI bleed #4 anemia #5 hypotension #6 history of EtOH #7 anemia with recent GI bleed #8 history of bladder and colon cancer #9 nicotine dependence #10 ischemic cardiomyopathy #11 prior myocardial infarction history #12 hypomagnesemia #13 hypokalemia #14 mild systolic congestive heart failure acute on chronic PLAN Continue current medical regimen. Patient will undergo an EGD tomorrow. Further recommendations to follow based upon clinical course. Nurse Practitioner note has been reviewed, I agree with a documented findings and plan of care. Patient was seen and examined. Objective - Vital Signs Vital signs: Vital Signs Temp 97 F L 07/25/18 08:00 Pulse 72 07/25/18 12:05 Resp 19 07/25/18 12:00 BP 117/64 07/25/18 12:00 Pulse Ox 99 07/25/18 12:00 Intake & Output 07/24/18 07/25/18 07/25/18 18:59 06:59 18:59 Intake Total 48.333 320 0 Output Total 225 400 900 Balance -176.667 -80 -900 Weight 96.4 kg Intake: Intake, IV Titration 48.333 Amount Diltiazem 50 mg In Sodium 48.333 Chloride 0.9% 40 ml @ 5 MG/HR 5 mls/hr IV .Q10H [facility] Rx#:[id number] Oral 0 320 0 Output: Urine 225 400 900 Other: Voiding Method Ileal Conduit (Right) Ileal Conduit (Right) Ileal Conduit ( Right) Ileal Conduit (Left) Ileal Conduit (Left) Ileal Conduit (Left) # Voids 1 0 # Bowel Movements 1 0 - Labs CBC & Chem 7: 07/25/18 06:15 07/25/18 06:10 Labs: Abnormal Lab Results - Last 24 Hours (Table) 07/25/18 07/25/18 07/25/18 Range/Units 06:10 06:15 06:15 RBC 2.98 L (4.30-5.90) m/uL Hgb 8.4 L (13.0-17.5) gm/dL Hct 28.3 L (39.0-53.0) % MCHC 29.6 L (31.0-37.0) g/dL RDW 16.6 H (11.5-15.5) % Plt Count 127 L (150-450) k/uL Lymphocytes # 0.7 L (1.0-4.8) k/uL Chloride 108 H (98-107) mmol/L Creatinine 1.60 H (0.66-1.25) mg/dL Glucose 142 H (74-99) mg/dL Delta Bilirubin 0.4 H (0.0-0.2) mg/dL Albumin 3.2 L (3.5-5.0) g/dL Microbiology - Last 24 Hours (Table) 07/24/18 06:00 Gram Stain - Preliminary Sputum 07/23/18 13:14 Blood Culture - Preliminary Blood No Growth after 24 hours
--- NOTE | 2018-07-25 15:11 | P.PN ---
Subjective Progress Note Date: 07/25/18 This is a very pleasant 77-year-old gentleman who has a significant complicated multiple medical history including recent gastrointestinal bleeding, bladder cancer, prostate cancer status post urostomy with obstruction status post nephrostomy tube placement bilaterally. He has a history of myocardial infarction, atrial fibrillation and has been off his anticoagulants since last admission. He also has a significant history of chronic and ongoing tobacco dependence along with daily alcohol use. He has severe left ventricular systolic dysfunction with ejection fraction 25-30%. He was admitted again yesterday after less than 24 hours of being post discharge for continued ongoing nausea and vomiting. He states he is resting comfortably on his couch and dozing off and awoke to himself vomiting and did aspirate and choke on his stomach contents. He states these were all liquids. No food product. Mostly bile. Chest x-ray does show evidence of right lower lobe infiltrate secondary to aspiration. There is ongoing congestive heart failure as well. He is seen today in consultation on the selective care unit. Currently he is resting fairly comfortably in bed he is laying flat. No worsening shortness of breath, cough or congestion. He is maintaining good O2 saturations in the mid 90s on 2 L/m per nasal cannula. White count 13.1. Hemoglobin 8.1. Creatinine 1.22. ProBNP 5220. He has been initiated on DuoNeb inhalations, Levaquin and Zosyn. On today's evaluation of 07/25/2018, the patient essentially the same compared to yesterday. He has a congested cough. Bringing up minimal amount of sputum. He was able to have breakfast earlier this morning. He also had there are last night. No nausea. No abdominal distention. No emesis. No aspiration reported. His white cell count is stable at 7.6. Hemoglobin stable at 8.4. The liver function tests are also stable. He remains on broad-spectrum antibiotics. Currently is on a combination of Zosyn and Levaquin. He is also on DuoNeb nebulized treatments around the clock and he is also on IV Solu- Medrol. The Gram stain and cultures still pending for now. Repeat chest x-ray was done today and it shows small bilateral pleural effusion and cardiomegaly. There is bilateral infiltrates right more than left with some limited worsening of the pulmonary infiltrates in the right lung base. Pulmonary vasculature is also pronounced. Objective - Vital Signs Vital signs: Vital Signs Temp 97 F L 07/25/18 08:00 Pulse 72 07/25/18 12:05 Resp 19 07/25/18 12:00 BP 117/64 07/25/18 12:00 Pulse Ox 99 07/25/18 12:00 Intake & Output 07/24/18 07/25/18 07/25/18 18:59 06:59 18:59 Intake Total 48.333 320 0 Output Total 225 400 900 Balance -176.667 -80 -900 Weight 96.4 kg Intake: Intake, IV Titration 48.333 Amount Diltiazem 50 mg In Sodium 48.333 Chloride 0.9% 40 ml @ 5 MG/HR 5 mls/hr IV .Q10H OLIVE Rx#:[id number] Oral 0 320 0 Output: Urine 225 400 900 Other: Voiding Method Ileal Conduit (Right) Ileal Conduit (Right) Ileal Conduit ( Right) Ileal Conduit (Left) Ileal Conduit (Left) Ileal Conduit (Left) # Voids 1 0 # Bowel Movements 1 0 - Exam General appearance: cooperative, mild distress - EENT Eyes: EOMI, PERRLA ENT: hearing grossly normal Ears: bilateral: normal - Neck Carotids: bilateral: upstroke normal Thyroid: bilateral: normal size - Respiratory Respiratory: right: rhonchi, bilateral: rales, wheezing - Cardiovascular Rhythm: irregularly irregular Heart sounds: normal: S1, S2 - Gastrointestinal General gastrointestinal: normal bowel sounds - Integumentary Integumentary: normal turgor - Neurologic Neurologic: CNII-XII intact - Musculoskeletal Musculoskeletal: generalized weakness - Psychiatric Psychiatric: A&O x's 3, appropriate affect - Labs CBC & Chem 7: 07/25/18 06:15 07/25/18 06:10 Labs: Abnormal Lab Results - Last 24 Hours (Table) 07/25/18 07/25/18 07/25/18 Range/Units 06:10 06:15 06:15 RBC 2.98 L (4.30-5.90) m/uL Hgb 8.4 L (13.0-17.5) gm/dL Hct 28.3 L (39.0-53.0) % MCHC 29.6 L (31.0-37.0) g/dL RDW 16.6 H (11.5-15.5) % Plt Count 127 L (150-450) k/uL Lymphocytes # 0.7 L (1.0-4.8) k/uL Chloride 108 H (98-107) mmol/L Creatinine 1.60 H (0.66-1.25) mg/dL Glucose 142 H (74-99) mg/dL Delta Bilirubin 0.4 H (0.0-0.2) mg/dL Albumin 3.2 L (3.5-5.0) g/dL Microbiology - Last 24 Hours (Table) 07/24/18 06:00 Gram Stain - Preliminary Sputum 07/23/18 13:14 Blood Culture - Preliminary Blood No Growth after 24 hours Assessment and Plan Plan: #1 Acute hypoxic respiratory failure secondary to massive aspiration occurring at a time of emesis. The patient has by the pulmonary infiltrates with some interval worsening on the right. He is on accommodation of Zosyn and Levaquin for now. #2 Recent admission for nausea and vomiting. #3 Recent admissions for acute on chronic GI bleeding. #4 Chronic atrial fibrillation, currently off warfarin. #5 Acute on chronic renal injury secondary to chronic cardiorenal syndrome. #6 Ischemic cardiomyopathy with ejection fraction 20-30%. #7 History of bladder and prostate cancer and ileostomy nonfunctioning. Bilateral nephrostomy tubes in place. #8 History of chronic tobacco dependence. #9 Chronic obstructive pulmonary disease. #10 History of alcohol use. Plan Reviewed the current chest x-ray. There may be component of CHF in addition to bilateral pneumonia. We'll check the renal function today and if stable will start the patient on daily diuretic dose. I will take the opportunity to give this patient 40 mg a Lasix IV push for now x1. Continue Zosyn and Levaquin. Monitor the x-ray findings. We then FiO2 as tolerated. Aspiration precautions. We'll continue to follow.
[2018-07-25] MEDS ORDERED: FUROSEMIDE 10 MG/ML 4 ML VIAL IV STA (15:12)
[2018-07-25] MEDS: LEVOFLOXACIN 750MG-D5W PMX 750 MG in DEXTROSE/WATER 1 150ML.BAG IVPB SCH (15:34)
[2018-07-26] MEDS: PIPERACILLIN-TAZOBACTAM 3.375 GM in DEXTROSE/WATER 1 50ML.BAG IVPB SCH ×4 (00:25→23:20)
[2018-07-26] MEDS: methylPREDNISolone SOD SUCCI 125 MG/2 ML VIAL IV SCH ×2 (00:25→06:10)
[2018-07-26] MEDS: PANTOPRAZOLE 40 MG TABLET PO SCH ×2 (06:10→16:52)
[2018-07-26 08:41] LABS: Calcium 9.4 mg/dL (8.4-10.2); Potassium 4.5 mmol/L (3.5-5.1)
[2018-07-26] MEDS: FERROUS SULFATE 325 MG TAB PO SCH ×3 (08:49→21:09)
[2018-07-26] MEDS: METOPROLOL TARTRATE 25 MG TAB PO SCH ×2 (08:49→21:09)
[2018-07-26] MEDS: SPIRONOLACTONE 25 MG TAB PO SCH (08:50)
[2018-07-26] MEDS: IPRATROPIUM-ALBUTEROL 3 ML NEB INHALATION SCH ×2 (09:15→21:14)
--- NOTE | 2018-07-26 11:47 | CDI ---
Last Revision, August 2017 Documentation Clarification Form Date: 07/26/2018 11:30:50 AM From: Olive Alcazar RN, CCDS Admit Date: 07/23/2018 3:48:00 PM Patient Name: Baudilio Putnam Visit Number: [id number] ATTENTION: The Clinical Documentation Specialists (CDI) and [facility] Coding Staff appreciate your assistance in clarifying documentation. Please respond to the clarification below the line at the bottom and electronically sign. The CDI & [facility] Coding staff will review the response and follow-up if needed. Please note: Queries are made part of the Legal Health Record. If you have any questions, please contact the author of this message via ITS. Jose Anton MD History/Risk Factors: GI Bleeding, Chronic atrial Fib, Hypovolemic shock d/t acute blood loss anemia last admission Clinical Indicators: 07/25 Pulmonary Progress Notes: "Acute on chronic renal injury secondary to chronic cardiorenal syndrome." Current BUN: 04/07/ CR: 1.16/1.22/1.6/2.13 GFR: 62/58/42/29 07/18/18 Patients Baseline: BUN/CR/GFR: 18/1.72/38 Treatment: IVF: 1 L IVF Bolus 0.9% NS @ 100 cc/ hr Aldactone 25 mg po daily Lasix 40 MG IVP x1 In order to capture the severity of condition, please clarify if the condition signifies: CKD Stage 1 (GFR > 90) CKD Stage 2 (GFR 60-89) CKD Stage 3 (GFR 30-59) CKD Stage 4 (GFR 15-29) CKD Stage 5 (GFR <15) ESRD Other, please specify Unable to determine Please continue to document in your progress notes and discharge summary in order to capture severity of illness and risk of mortality. Include clinical findings that support your diagnosis. CKD Stage 3 (GFR 30-59) MTDD
--- NOTE | 2018-07-26 11:53 | P.PN ---
Subjective Progress Note Date: 07/26/18 Principal diagnosis: Acute hypoxic respiratory failure secondary to massive aspiration This is a very pleasant 77-year-old gentleman who has a significant complicated multiple medical history including recent gastrointestinal bleeding, bladder cancer, prostate cancer status post urostomy with obstruction status post nephrostomy tube placement bilaterally. He has a history of myocardial infarction, atrial fibrillation and has been off his anticoagulants since last admission. He also has a significant history of chronic and ongoing tobacco dependence along with daily alcohol use. He has severe left ventricular systolic dysfunction with ejection fraction 25-30%. He was admitted again yesterday after less than 24 hours of being post discharge for continued ongoing nausea and vomiting. He states he is resting comfortably on his couch and dozing off and awoke to himself vomiting and did aspirate and choke on his stomach contents. He states these were all liquids. No food product. Mostly bile. Chest x-ray does show evidence of right lower lobe infiltrate secondary to aspiration. There is ongoing congestive heart failure as well. He is seen today in consultation on the selective care unit. Currently he is resting fairly comfortably in bed he is laying flat. No worsening shortness of breath, cough or congestion. He is maintaining good O2 saturations in the mid 90s on 2 L/m per nasal cannula. White count 13.1. Hemoglobin 8.1. Creatinine 1.22. ProBNP 5220. He has been initiated on DuoNeb inhalations, Levaquin and Zosyn. On today's evaluation of 07/25/2018, the patient essentially the same compared to yesterday. He has a congested cough. Bringing up minimal amount of sputum. He was able to have breakfast earlier this morning. He also had there are last night. No nausea. No abdominal distention. No emesis. No aspiration reported. His white cell count is stable at 7.6. Hemoglobin stable at 8.4. The liver function tests are also stable. He remains on broad-spectrum antibiotics. Currently is on a combination of Zosyn and Levaquin. He is also on DuoNeb nebulized treatments around the clock and he is also on IV Solu- Medrol. The Gram stain and cultures still pending for now. Repeat chest x-ray was done today and it shows small bilateral pleural effusion and cardiomegaly. There is bilateral infiltrates right more than left with some limited worsening of the pulmonary infiltrates in the right lung base. Pulmonary vasculature is also pronounced. On 07/26/2018 patient seen in follow-up on selective care unit. He still has the congestive cough, but not able to bring up much sputum. No fever or chills. No chest pain. Chest x-ray on 07/25/2018 showed a worsening right lower lobe infiltrate, there was also left basilar infiltrate and bilateral pleural effusions. Vital signs remain stable, patient is afebrile, blood and sputum ultra remain negative. Today's labs have been reviewed, BNP was done and showed sodium 138, potassium is 4.5, chloride is 107, CO2 of 21, BUN of 27 creatinine of 2.13. Patient is nothing by mouth for a scheduled EGD today by Dr. Echols. Current antibiotic coverage includes Levaquin and Zosyn. Objective - Vital Signs Vital signs: Vital Signs Temp 97.6 F 07/26/18 08:00 Pulse 108 H 07/26/18 09:28 Resp 18 07/26/18 08:00 BP 124/73 07/26/18 08:00 Pulse Ox 95 07/26/18 08:00 Intake & Output 07/25/18 07/26/18 07/26/18 18:59 06:59 18:59 Intake Total 150 330 Output Total 1151 Balance -1001 330 Weight 96.4 kg Intake: Intake, IV Titration 150 Amount Levofloxacin 750Mg-D5w 100 Pmx 750 mg In Dextrose/ Water 1 150ml.bag @ 100 mls/hr IVPB Q24H OLIVE Rx#: [id number] Piperacillin-Tazobactam 3 50 .375 gm In Dextrose/Water 1 50ml.bag @ 12.5 mls/hr IVPB Q8HR OLIVE Rx#: [id number] Oral 0 330 Output: Urine 1150 Stool 1 Other: Voiding Method Ileal Conduit (Right) Ileal Conduit (Right) Ileal Conduit ( Right) Ileal Conduit (Left) Ileal Conduit (Left) Ileal Conduit (Left) # Voids 0 2 # Bowel Movements 1 - Exam General appearance: cooperative, no acute distress - EENT Eyes: EOMI, PERRLA ENT: hearing grossly normal Ears: bilateral: normal - Neck Carotids: bilateral: upstroke normal Thyroid: bilateral: normal size - Respiratory Respiratory: right: rhonchi, but no wheezing or rales - Cardiovascular Rhythm: irregularly irregular Heart sounds: normal: S1, S2 - Gastrointestinal General gastrointestinal: normal bowel sounds - Integumentary Integumentary: normal turgor - Neurologic Neurologic: CNII-XII intact - Musculoskeletal Musculoskeletal: generalized weakness - Psychiatric Psychiatric: A&O x's 3, appropriate affect - Labs CBC & Chem 7: 07/25/18 06:15 07/26/18 07:33 Labs: Abnormal Lab Results - Last 24 Hours (Table) 07/25/18 07/25/18 07/26/18 Range/Units 06:15 06:15 07:33 RBC 2.98 L (4.30-5.90) m/uL Hgb 8.4 L (13.0-17.5) gm/dL Hct 28.3 L (39.0-53.0) % MCHC 29.6 L (31.0-37.0) g/dL RDW 16.6 H (11.5-15.5) % Plt Count 127 L (150-450) k/uL Lymphocytes # 0.7 L (1.0-4.8) k/uL Carbon Dioxide 21 L (22-30) mmol/L BUN 27 H (9-20) mg/dL Creatinine 2.13 H (0.66-1.25) mg/dL Glucose 152 H (74-99) mg/dL Delta Bilirubin 0.4 H (0.0-0.2) mg/dL Albumin 3.2 L (3.5-5.0) g/dL Microbiology - Last 24 Hours (Table) 07/24/18 06:00 Gram Stain - Final Sputum Sputum Culture - Final 07/23/18 13:14 Blood Culture - Preliminary Blood No Growth after 48 hours Assessment and Plan Plan: #1 Acute hypoxic respiratory failure secondary to massive aspiration occurring at a time of emesis. The patient has by the pulmonary infiltrates with some interval worsening on the right. He is on accommodation of Zosyn and Levaquin for now. #2 Recent admission for nausea and vomiting. #3 Recent admissions for acute on chronic GI bleeding. #4 Chronic atrial fibrillation, currently off warfarin. #5 Acute on chronic renal injury secondary to chronic cardiorenal syndrome. #6 Ischemic cardiomyopathy with ejection fraction 20-30%. #7 History of bladder and prostate cancer and ileostomy nonfunctioning. Bilateral nephrostomy tubes in place. #8 History of chronic tobacco dependence. #9 Chronic obstructive pulmonary disease. #10 History of alcohol use. Plan: Continue with Zosyn and Levaquin, sputum and blood cultures remain negative, patient is afebrile, patient's diuretics are on hold. There has been worsening of patient's renal function. We will decrease the IV Solu-Medrol to 40 mg every 8 hours. He is scheduled for EGD today. No further nausea or vomiting. No fever or chills. No worsening dyspnea or chest pain. We'll continue to follow I performed a history & physical examination of the patient and discussed their management with my nurse practitioner, Reyna Greenwood. I reviewed the nurse practitioner's note and agree with the documented findings and plan of care. Lung sounds are scattered rhonchi. The findings and the impression was discussed with the patient. I attest to the documentation by the nurse practitioner. Time with Patient: Less than 30
[2018-07-26] MEDS ORDERED: IV FLUID CONTINUATION 1,000 ML IV ONE (13:35)
[2018-07-26] MEDS ORDERED: PROPOFOL 10 MG/ML 20 ML VIAL IV ONE (13:35)
[2018-07-26] MEDS ORDERED: LIDOCAINE 1% INJ 10MG/ML (20 ML MDV) ONE (13:35)
[2018-07-26] MEDS ORDERED: fentaNYL (PF) 50 MCG/ML 2 ML AMP ONE (13:35)
--- NOTE | 2018-07-26 14:26 | P.PCN ---
Date of Procedure: 07/26/18 Description of Procedure: BRIEF HISTORY: Patient is a 77-year-old, pleasant, with a medical history significant for bladder cancer status post post cystectomy with formation of a neobladder. He's had multiple recent admissions with evaluation with both EGD and a colonoscopy (colonoscopy needed to be aborted due to incomplete prep) in the past. Previously nonbleeding duodenal ulcers were seen on EGD. He presents back to the hospital and is again found to be anemic, and decision has been made to repeat upper endoscopy for further evaluation. PROCEDURE PERFORMED: Esophagogastroduodenoscopy with biopsy. PREOPERATIVE DIAGNOSIS: Anemia, history of duodenal ulcer. ESTIMATED BLOOD LOSS: Minimal. IV sedation per anesthesia. PROCEDURE: After informed consent was obtained, the patient was brought into the endoscopy unit. IV sedation was administered by Anesthesia under continuous monitoring. Initially the Olympus GIF-190 video endoscope was inserted into the mouth. Esophagus intubated without any difficulty. It was gradually advanced into the stomach and duodenum and carefully examined. The bulb and the second part of the duodenum appeared normal with no evidence of previously seen duodenal ulcers. The scope at this time was withdrawn to the stomach, adequately insufflated with air, and upon careful examination, mucosa of the antrum, body, cardia and the fundus appeared grossly normal, with minimal scattered erythema in the body and fundus suggestive of gastritis which was biopsied. The scope was then withdrawn into the esophagus. The GE junction was located at 45 cm from the incisors. LA grade D esophagitis was noted from 30 cm from the incisors to 45 cm from the incisors, biopsies taken. There were no erosions or ulcerations seen and the patient tolerated the procedure well. IMPRESSION: 1. Mild scattered gastritis, biopsied. 2. LA grade D esophagitis, biopsied. 3. No active bleeding noted during the entire procedure. RECOMMENDATIONS: The findings of this examination were discussed with the patient. Okay for full liquid diet today, advance diet tomorrow. Continue Protonix 40 mg twice daily. Continue to monitor hemoglobin and transfuse as needed. If patient has further drop in hemoglobin can consider capsule endoscopy to complete evaluation, or repeat attempt at colonoscopy which was previously aborted due to the patient having an incomplete prep. Patient may also benefit from a hematology consult given recurrent episodes of anemia.
[2018-07-26] MEDS: IPRATROPIUM-ALBUTEROL 3 ML NEB INHALATION PRN (14:55)
[2018-07-26] MEDS: LEVOFLOXACIN 750MG-D5W PMX 750 MG in DEXTROSE/WATER 1 150ML.BAG IVPB SCH (15:07)
[2018-07-26] MEDS: methylPREDNISolone SOD SUCCI 40 MG/ML 1 ML VIAL IV SCH ×2 (15:07→23:21)
--- NOTE | 2018-07-26 15:50 | P.PN ---
Subjective Progress Note Date: 07/26/18 This is a 77-year-old gentleman who follows regularly with Dr. VC Neville in the office. He has a known history of chronic persistent atrial fibrillation, ischemic cardiomyopathy, severe LV dysfunction with documented ejection fraction of 25-30%, history of myocardial infarction, history of EtOH use, several abnormal swallow evaluations, history of bladder and prostate CVA, who was just discharged from the hospital on the of this month returning back for admission the following day. Patient's recent admission to the hospital was for a UTI, prior to that he had a recent admission to the hospital with GI bleeding and hypovolemic shock at which time his anticoagulation was discontinued. Patient did have a recent negative colonoscopy performed and several months prior to that had a negative EGD. He presents to the hospital on this occasion with symptoms of shortness of breath. According to the patient , he had attempted to eat something although his appetite has been extremely poor recently, he started to vomit and states that he inhaled some of the emesis , shortly thereafter he states that he could not breathe at all. For this reason he came to the emergency room again for further evaluation. Chest x-ray on admission here showed patchy and somewhat nodular infiltrate involving most of the right lung. Small effusion is noted. Suggests possible pneumonia. EKG on arrival here shows atrial fibrillation with rapid ventricular response, nonspecific ST-T wave changes. Blood pressure on arrival here 86/40 with a heart rate in the 120s, 86% on room air. I pressure this morning 108/60 with a heart rate of 118, 96% on 2 L of oxygen. He is afebrile. White blood cell count 5.9 on admission, 13.1 this morning, hemoglobin on admission 9.9, 8.1 this morning. Platelet count 123 on admission, 121 this morning. Sodium 142 on admission potassium 3.4, BUN 7, creatinine 1.1. Magnesium 1.3. Troponin 0.019. BNP level 5220. Potassium on admission 3.4, 4.0 this morning. Patient is currently on IV Cardizem drip at 5 mg per hour. 07/26/2018 Patient continues to be in atrial fibrillation, rate under adequate control. Blood pressure 138/80, heart rate in the 80s, 98% on 2 L of oxygen. Sodium 139 , potassium 4.5, BUN 27, creatinine 2.1. Patient underwent a EGD today which revealed mild scattered gastritis biopsied, LA grade esophagitis a biopsied, no active bleeding. If patient has a further drop in hemoglobin, capsule endoscopy or reattempts to Complete Colonoscopy Will Be Performed. Continues to complain of mild cough. Objective - Vital Signs Vital signs: Vital Signs Temp 97.9 F 07/26/18 12:00 Pulse 92 07/26/18 15:08 Resp 18 07/26/18 12:00 BP 138/83 07/26/18 12:00 Pulse Ox 98 07/26/18 12:00 Intake & Output 07/25/18 07/26/18 07/26/18 18:59 06:59 18:59 Intake Total 150 330 100 Output Total 1151 Balance -1001 330 100 Weight 96.4 kg Intake: IV 100 Intake, IV Titration 150 Amount Levofloxacin 750Mg-D5w 100 Pmx 750 mg In Dextrose/ Water 1 150ml.bag @ 100 mls/hr IVPB Q24H [facility] Rx#: [id number] Piperacillin-Tazobactam 3 50 .375 gm In Dextrose/Water 1 50ml.bag @ 12.5 mls/hr IVPB Q8HR [facility] Rx#: [id number] Oral 0 330 Output: Urine 1150 Stool 1 Other: Voiding Method Ileal Conduit (Right) Ileal Conduit (Right) Ileal Conduit ( Right) Ileal Conduit (Left) Ileal Conduit (Left) Ileal Conduit (Left) # Voids 0 2 1 # Bowel Movements 1 - Exam PHYSICAL EXAMINATION: GENERAL: 77-year-old gentleman in no acute distress at the time of my examination HEENT: Head is atraumatic, normocephalic. Pupils equal, round. Sclera anicteric. Conjunctiva are clear. Mucous membranes of the mouth are moist. Neck is supple. There is no elevated jugular venous pressure. No carotid bruit is heard. HEART EXAMINATION: Heart S1 and S2 irregularly irregular CHEST EXAMINATION: Lungs reveal scattered coarse rhonchi throughout. ABDOMEN: Soft, nontender. Bowel sounds are heard. No organomegaly noted. EXTREMITIES: 2+ peripheral pulses with trace to 1+ right leg greater than the left evidence of peripheral edema . NEUROLOGIC patient is awake, alert and oriented 3 . - Labs CBC & Chem 7: 07/25/18 06:15 07/26/18 07:33 Labs: Abnormal Lab Results - Last 24 Hours (Table) 07/26/18 Range/Units 07:33 Carbon Dioxide 21 L (22-30) mmol/L BUN 27 H (9-20) mg/dL Creatinine 2.13 H (0.66-1.25) mg/dL Glucose 152 H (74-99) mg/dL Microbiology - Last 24 Hours (Table) 07/23/18 13:14 Blood Culture - Preliminary Blood No Growth after 72 hours 07/24/18 06:00 Gram Stain - Final Sputum Sputum Culture - Final Assessment and Plan Plan: Assessment and plan #1 symptoms of fairly sudden onset of shortness of breath, chest x-ray reveals pneumonia, possible aspiration pneumonia. #2 recent hospitalization with UTI and sepsis #3 chronic persistent atrial fibrillation, anticoagulation discontinued on a recent admission secondary to GI bleed #4 anemia #5 hypotension #6 history of EtOH #7 anemia with recent GI bleed. Patient did have recent colonoscopy and EGD performed, colonoscopy was performed on June 22 and revealed a normal appearing: From the rectum to the descending colon and further advancement cannot be achieved in spite of several attempts. No masses or pathology to explain anemia were noted at that time. EGD was performed in April which revealed nonbleeding duodenal ulcers. #8 history of bladder and colon cancer #9 nicotine dependence #10 ischemic cardiomyopathy, most recent echo was performed in April of this year and revealed an ejection fraction of 25-30% moderate MR moderate TR #11 prior myocardial infarction history #12 hypomagnesemia #13 hypokalemia #14 mild systolic congestive heart failure acute on chronic Plan Cardiology's perspective, we'll recommend to continue patient on his current medications. We'll follow him along with you now on an as-needed basis only, please don't hesitate to call with any questions. DNP note has been reviewed, I agree with a documented findings and plan of care. Patient was seen and examined.
[2018-07-27] MEDS: PANTOPRAZOLE 40 MG TABLET PO SCH ×2 (06:21→17:18)
[2018-07-27 06:57] LABS: Calcium 9.7 mg/dL (8.4-10.2); Potassium 4.7 mmol/L (3.5-5.1)
--- NOTE | 2018-07-27 08:55 | P.PN ---
Subjective Progress Note Date: 07/27/18 Principal diagnosis: epigastric pain nausea vomiting Status post EGD yesterday unremarkable. Denies abdominal pain. Afebrile. Objective - Vital Signs Vital signs: Vital Signs Temp 97.5 F L 07/27/18 04:00 Pulse 113 H 07/27/18 04:00 Resp 20 07/27/18 04:00 BP 112/73 07/27/18 04:00 Pulse Ox 91 L 07/27/18 04:00 Intake & Output 07/26/18 07/27/18 07/27/18 18:59 06:59 18:59 Intake Total 100 330 Output Total 825 Balance -725 330 Weight 96.5 kg Intake: IV 100 Oral 330 Output: Urine 825 Other: Voiding Method Ileal Conduit (Right) Ileal Conduit (Right) Ileal Conduit (Left) Ileal Conduit (Left) # Voids 1 0 - Exam General appearance: The patient is alert, oriented, in no acute distress. HET: Head is normocephalic and atraumatic. Pupils are equal and reactive. Oropharynx is clear without lesions. Neck: Supple without lymphadenopathy. Trachea midline. Heart: S1 S2. Regular rate and rhythm. Lungs: No crackles or wheezes are heard. Abdomen: Soft, nontender, nondistended with bowel sounds. ostomy with yellow colored output.No peritoneal signs. No palpable organomegaly or masses. Extremities: Normal skin color and turgor. No cyanosis, rash, ulceration, clubbing, or edema. Radial and pedal pulses are 2/4 bilaterally. Neurological: No focal deficits. Strength and sensation are grossly intact. - Labs CBC & Chem 7: 07/25/18 06:15 07/27/18 06:04 Labs: Abnormal Lab Results - Last 24 Hours (Table) 07/27/18 Range/Units 06:04 BUN 32 H (9-20) mg/dL Creatinine 2.31 H (0.66-1.25) mg/dL Glucose 151 H (74-99) mg/dL Microbiology - Last 24 Hours (Table) 07/23/18 13:14 Blood Culture - Preliminary Blood No Growth after 72 hours 07/24/18 06:00 Gram Stain - Final Sputum Sputum Culture - Final Assessment and Plan (1) Epigastric pain Narrative/Plan: Status post unremarkable EGD. Current Visit: Yes Status: Acute Code(s): R10.13 - EPIGASTRIC PAIN SNOMED Code(s): 52809031 (2) Atrial fibrillation Current Visit: Yes Status: Acute Code(s): I48.91 - UNSPECIFIED ATRIAL FIBRILLATION SNOMED Code(s): 18372189 (3) Chronic anemia Narrative/Plan: no active GI bleed Current Visit: No Status: Acute Code(s): D64.9 - ANEMIA, UNSPECIFIED SNOMED Code(s): 111397181 Plan: 1. Continue with Protonix 40 mg twice daily. Diet as tolerated. Recommend hematology consult for anemia. Assessment and plan a care discussed with Dr. Adams
[2018-07-27] MEDS: IPRATROPIUM-ALBUTEROL 3 ML NEB INHALATION SCH ×2 (08:58→19:51)
[2018-07-27] MEDS: SPIRONOLACTONE 25 MG TAB PO SCH (09:31)
[2018-07-27] MEDS: FERROUS SULFATE 325 MG TAB PO SCH ×3 (09:31→22:13)
[2018-07-27] MEDS: METOPROLOL TARTRATE 25 MG TAB PO SCH ×2 (09:31→22:13)
[2018-07-27] MEDS: PIPERACILLIN-TAZOBACTAM 3.375 GM in DEXTROSE/WATER 1 50ML.BAG IVPB SCH ×3 (09:31→23:56)
[2018-07-27] MEDS: methylPREDNISolone SOD SUCCI 40 MG/ML 1 ML VIAL IV SCH ×3 (09:31→23:56)
--- NOTE | 2018-07-27 11:10 | P.PN ---
Subjective Progress Note Date: 07/27/18 Principal diagnosis: Acute hypoxic respiratory failure secondary to aspiration This is a very pleasant 77-year-old gentleman who has a significant complicated multiple medical history including recent gastrointestinal bleeding, bladder cancer, prostate cancer status post urostomy with obstruction status post nephrostomy tube placement bilaterally. He has a history of myocardial infarction, atrial fibrillation and has been off his anticoagulants since last admission. He also has a significant history of chronic and ongoing tobacco dependence along with daily alcohol use. He has severe left ventricular systolic dysfunction with ejection fraction 25-30%. He was admitted again yesterday after less than 24 hours of being post discharge for continued ongoing nausea and vomiting. He states he is resting comfortably on his couch and dozing off and awoke to himself vomiting and did aspirate and choke on his stomach contents. He states these were all liquids. No food product. Mostly bile. Chest x-ray does show evidence of right lower lobe infiltrate secondary to aspiration. There is ongoing congestive heart failure as well. He is seen today in consultation on the selective care unit. Currently he is resting fairly comfortably in bed he is laying flat. No worsening shortness of breath, cough or congestion. He is maintaining good O2 saturations in the mid 90s on 2 L/m per nasal cannula. White count 13.1. Hemoglobin 8.1. Creatinine 1.22. ProBNP 5220. He has been initiated on DuoNeb inhalations, Levaquin and Zosyn. On today's evaluation of 07/25/2018, the patient essentially the same compared to yesterday. He has a congested cough. Bringing up minimal amount of sputum. He was able to have breakfast earlier this morning. He also had there are last night. No nausea. No abdominal distention. No emesis. No aspiration reported. His white cell count is stable at 7.6. Hemoglobin stable at 8.4. The liver function tests are also stable. He remains on broad-spectrum antibiotics. Currently is on a combination of Zosyn and Levaquin. He is also on DuoNeb nebulized treatments around the clock and he is also on IV Solu- Medrol. The Gram stain and cultures still pending for now. Repeat chest x-ray was done today and it shows small bilateral pleural effusion and cardiomegaly. There is bilateral infiltrates right more than left with some limited worsening of the pulmonary infiltrates in the right lung base. Pulmonary vasculature is also pronounced. On 07/26/2018 patient seen in follow-up on selective care unit. He still has the congestive cough, but not able to bring up much sputum. No fever or chills. No chest pain. Chest x-ray on 07/25/2018 showed a worsening right lower lobe infiltrate, there was also left basilar infiltrate and bilateral pleural effusions. Vital signs remain stable, patient is afebrile, blood and sputum ultra remain negative. Today's labs have been reviewed, BNP was done and showed sodium 138, potassium is 4.5, chloride is 107, CO2 of 21, BUN of 27 creatinine of 2.13. Patient is nothing by mouth for a scheduled EGD today by Dr. Echols. Current antibiotic coverage includes Levaquin and Zosyn. The patient is seen again today July 27 2018 in follow-up on the selective care unit. He is currently sitting up at the bedside. He is eating eggs and sims. He denies any cough or congestion. He did undergo EGD yesterday that revealed no active bleeding. No significant findings. GI is referring to hematology regarding the anemia. Blood and sputum cultures reveal no growth. Creatinine 2.31. He remains on Zosyn and Levaquin. He is maintaining O2 saturations in the low 90s on 2 L/m per nasal cannula. He's been afebrile. Continued on IV Solu-Medrol and bronchodilators. Objective - Vital Signs Vital signs: Vital Signs Temp 97.5 F L 07/27/18 04:00 Pulse 88 07/27/18 09:10 Resp 20 07/27/18 04:00 BP 112/73 07/27/18 04:00 Pulse Ox 91 L 07/27/18 04:00 Intake & Output 07/26/18 07/27/18 07/27/18 18:59 06:59 18:59 Intake Total 100 330 Output Total 825 Balance -725 330 Weight 96.5 kg Intake: IV 100 Oral 330 Output: Urine 825 Other: Voiding Method Ileal Conduit (Right) Ileal Conduit (Right) Ileal Conduit (Left) Ileal Conduit (Left) # Voids 1 0 - Exam General appearance: cooperative, no acute distress - EENT Eyes: EOMI, PERRLA ENT: hearing grossly normal Ears: bilateral: normal - Neck Carotids: bilateral: upstroke normal Thyroid: bilateral: normal size - Respiratory Respiratory: right: rhonchi, but no wheezing or rales - Cardiovascular Rhythm: irregularly irregular Heart sounds: normal: S1, S2 - Gastrointestinal General gastrointestinal: normal bowel sounds - Integumentary Integumentary: normal turgor - Neurologic Neurologic: CNII-XII intact - Musculoskeletal Musculoskeletal: generalized weakness - Psychiatric Psychiatric: A&O x's 3, appropriate affect - Labs CBC & Chem 7: 07/25/18 06:15 07/27/18 06:04 Labs: Abnormal Lab Results - Last 24 Hours (Table) 07/27/18 Range/Units 06:04 BUN 32 H (9-20) mg/dL Creatinine 2.31 H (0.66-1.25) mg/dL Glucose 151 H (74-99) mg/dL Microbiology - Last 24 Hours (Table) 07/23/18 13:14 Blood Culture - Preliminary Blood No Growth after 72 hours 07/24/18 06:00 Gram Stain - Final Sputum Sputum Culture - Final Assessment and Plan Assessment: Impression: #1 Acute hypoxic respiratory failure secondary to an acute aspiration secondary to vomiting. #2 Recent admission for nausea and vomiting. #3 Recent admissions for acute on chronic GI bleeding. #4 Chronic atrial fibrillation, currently off warfarin. #5 Acute on chronic renal injury secondary to chronic cardiorenal syndrome. #6 Ischemic cardiomyopathy with ejection fraction 20-30%. #7 History of bladder and prostate cancer and ileostomy nonfunctioning. Bilateral nephrostomy tubes in place. #8 History of chronic tobacco dependence. #9 Chronic obstructive pulmonary disease. #10 History of alcohol use. Plan: The patient was seen and evaluated by Dr. Hickey. EGD revealed no active bleeding. Modified barium swallow pending. We'll continue with DuoNeb inhalations, IV Solu-Medrol, antibiotics in the form of Zosyn and Levaquin. We' ll continue to follow and make further recommendations based on his clinical status. I, the cosigning physician, performed a history & physical examination of the patient. Lungs sounds scattered rhonchi more so on the right, crackles in the posterior bases. Maintaining good O2 saturations in the 90s on 2 L/m per nasal. I discussed the assessment and plan of care with my nurse practitioner, Octavia Wu. I attest to the above consultation as dictated by her.
--- NOTE | 2018-07-27 16:04 | FL ---
EXAMINATION TYPE: FL barium swallow w video DATE OF EXAM: 07/27/2018 MODIFIED SWALLOW / DEGLUTITION STUDY CLINICAL HISTORY: Dysphagia. TECHNIQUE: Deglutition study is performed utilizing thin liquid barium, barium thick applesauce, and barium coated cracker. 56 seconds of fluoroscopy time was utilized with 0 fluoroscopic images saved as the exam was video recorded. COMPARISON: None. FINDINGS: The oral and pharyngeal phases show satisfactory initiation and propagation with all modali ties tested. Normal mastication is seen with solid modalities tested. There is no evidence of penet ration or aspiration with any modality tested. Vallecular retention was seen with the barium thick ap plesauce and barium coated cracker consistencies. IMPRESSION: Vallecular retention without evidence of aspiration. Please refer to speech therapist no lucia for further details if necessary.
[2018-07-27] MEDS: IPRATROPIUM-ALBUTEROL 3 ML NEB INHALATION PRN (17:04)
[2018-07-28] MEDS: METOPROLOL TARTRATE 25 MG TAB PO SCH ×2 (06:06→22:29)
[2018-07-28] MEDS: PANTOPRAZOLE 40 MG TABLET PO SCH ×2 (06:42→19:42)
[2018-07-28] MEDS: IPRATROPIUM-ALBUTEROL 3 ML NEB INHALATION SCH ×3 (07:21→19:59)
[2018-07-28] MEDS: SPIRONOLACTONE 25 MG TAB PO SCH (09:21)
[2018-07-28] MEDS: FERROUS SULFATE 325 MG TAB PO SCH ×3 (09:21→22:29)
[2018-07-28] MEDS: methylPREDNISolone SOD SUCCI 40 MG/ML 1 ML VIAL IV SCH ×3 (09:21→22:29)
[2018-07-28] MEDS: PIPERACILLIN-TAZOBACTAM 3.375 GM in DEXTROSE/WATER 1 50ML.BAG IVPB SCH (09:21)
--- NOTE | 2018-07-28 10:40 | P.PN ---
Subjective Progress Note Date: 07/28/18 Principal diagnosis: Acute hypoxic respiratory failure secondary to aspiration This is a very pleasant 77-year-old gentleman who has a significant complicated multiple medical history including recent gastrointestinal bleeding, bladder cancer, prostate cancer status post urostomy with obstruction status post nephrostomy tube placement bilaterally. He has a history of myocardial infarction, atrial fibrillation and has been off his anticoagulants since last admission. He also has a significant history of chronic and ongoing tobacco dependence along with daily alcohol use. He has severe left ventricular systolic dysfunction with ejection fraction 25-30%. He was admitted again yesterday after less than 24 hours of being post discharge for continued ongoing nausea and vomiting. He states he is resting comfortably on his couch and dozing off and awoke to himself vomiting and did aspirate and choke on his stomach contents. He states these were all liquids. No food product. Mostly bile. Chest x-ray does show evidence of right lower lobe infiltrate secondary to aspiration. There is ongoing congestive heart failure as well. He is seen today in consultation on the selective care unit. Currently he is resting fairly comfortably in bed he is laying flat. No worsening shortness of breath, cough or congestion. He is maintaining good O2 saturations in the mid 90s on 2 L/m per nasal cannula. White count 13.1. Hemoglobin 8.1. Creatinine 1.22. ProBNP 5220. He has been initiated on DuoNeb inhalations, Levaquin and Zosyn. On today's evaluation of 07/25/2018, the patient essentially the same compared to yesterday. He has a congested cough. Bringing up minimal amount of sputum. He was able to have breakfast earlier this morning. He also had there are last night. No nausea. No abdominal distention. No emesis. No aspiration reported. His white cell count is stable at 7.6. Hemoglobin stable at 8.4. The liver function tests are also stable. He remains on broad-spectrum antibiotics. Currently is on a combination of Zosyn and Levaquin. He is also on DuoNeb nebulized treatments around the clock and he is also on IV Solu- Medrol. The Gram stain and cultures still pending for now. Repeat chest x-ray was done today and it shows small bilateral pleural effusion and cardiomegaly. There is bilateral infiltrates right more than left with some limited worsening of the pulmonary infiltrates in the right lung base. Pulmonary vasculature is also pronounced. On 07/26/2018 patient seen in follow-up on selective care unit. He still has the congestive cough, but not able to bring up much sputum. No fever or chills. No chest pain. Chest x-ray on 07/25/2018 showed a worsening right lower lobe infiltrate, there was also left basilar infiltrate and bilateral pleural effusions. Vital signs remain stable, patient is afebrile, blood and sputum ultra remain negative. Today's labs have been reviewed, BNP was done and showed sodium 138, potassium is 4.5, chloride is 107, CO2 of 21, BUN of 27 creatinine of 2.13. Patient is nothing by mouth for a scheduled EGD today by Dr. Echols. Current antibiotic coverage includes Levaquin and Zosyn. The patient is seen again today July 27 2018 in follow-up on the selective care unit. He is currently sitting up at the bedside. He is eating eggs and sims. He denies any cough or congestion. He did undergo EGD yesterday that revealed no active bleeding. No significant findings. GI is referring to hematology regarding the anemia. Blood and sputum cultures reveal no growth. Creatinine 2.31. He remains on Zosyn and Levaquin. He is maintaining O2 saturations in the low 90s on 2 L/m per nasal cannula. He's been afebrile. Continued on IV Solu-Medrol and bronchodilators. The patient is seen again today 07/28/2018 in follow-up on the selective care unit. He is awake and alert in no acute distress. He denies any worsening shortness of breath, cough or congestion. Still somewhat bronchospastic and wheezy with minimal exertion. He is maintaining O2 saturations in the upper 90s on 2 L/m per nasal cannula. He is afebrile. Slightly tachycardic. Blood pressure stable. Sputum and blood cultures reveal no growth. He remains on bronchodilators, IV Solu-Medrol, Levaquin and Zosyn. Objective - Vital Signs Vital signs: Vital Signs Temp 98.2 F 07/28/18 07:00 Pulse 104 H 07/28/18 07:33 Resp 18 07/28/18 07:00 BP 133/71 07/28/18 07:00 Pulse Ox 98 07/28/18 07:00 Intake & Output 07/27/18 07/28/18 07/28/18 18:59 06:59 18:59 Intake Total 100 360 Output Total 701 600 Balance -701 -500 360 Weight 96.162 kg Intake: Oral 100 360 Output: Urine 700 600 Stool 1 Other: Voiding Method Ileal Conduit (Right) Ileal Conduit (Right) Ileal Conduit (Left) Ileal Conduit (Left) # Voids 0 - Exam General appearance: cooperative, no acute distress - EENT Eyes: EOMI, PERRLA ENT: hearing grossly normal Ears: bilateral: normal - Neck Carotids: bilateral: upstroke normal Thyroid: bilateral: normal size - Respiratory Respiratory: right: rhonchi, but no wheezing or rales - Cardiovascular Rhythm: irregularly irregular Heart sounds: normal: S1, S2 - Gastrointestinal General gastrointestinal: normal bowel sounds - Integumentary Integumentary: normal turgor - Neurologic Neurologic: CNII-XII intact - Musculoskeletal Musculoskeletal: generalized weakness - Psychiatric Psychiatric: A&O x's 3, appropriate affect - Labs CBC & Chem 7: 07/25/18 06:15 07/27/18 06:04 Labs: Microbiology - Last 24 Hours (Table) 07/23/18 13:14 Blood Culture - Preliminary Blood No Growth after 96 hours Assessment and Plan Assessment: Impression: #1 Acute hypoxic respiratory failure secondary to an acute aspiration secondary to vomiting. Barium swallow with video revealed vallecular retention without evidence of aspiration. #2 Recent admission for nausea and vomiting. #3 Recent admissions for acute on chronic GI bleeding. #4 Chronic atrial fibrillation, currently off warfarin. #5 Acute on chronic renal injury secondary to chronic cardiorenal syndrome. #6 Ischemic cardiomyopathy with ejection fraction 20-30%. #7 History of bladder and prostate cancer and ileostomy nonfunctioning. Bilateral nephrostomy tubes in place. #8 History of chronic tobacco dependence. #9 Chronic obstructive pulmonary disease. #10 History of alcohol use. Plan: The patient was seen and evaluated by Dr. Hickey. Swallow evaluation revealed vallecular retention without evidence of aspiration. Repeat chest x-ray pending. We'll continue with DuoNeb inhalations, IV Solu-Medrol, antibiotics in the form of Zosyn and Levaquin. We will increase his activity as tolerated. We'll continue to follow and make further recommendations based on his clinical status. I, the cosigning physician, performed a history & physical examination of the patient. Lungs sounds scattered rhonchi more so on the right, crackles in the posterior bases. Maintaining good O2 saturations in the 90s on 2 L/m per nasal. I discussed the assessment and plan of care with my nurse practitioner, Octavia Wu. I attest to the above consultation as dictated by her.
[2018-07-28 11:46] LABS: Glucose,Whole Blood 181 mg/dL (75-99)
--- NOTE | 2018-07-28 11:54 | XR ---
EXAMINATION TYPE: XR chest 1V portable DATE OF EXAM: 07/28/2018 COMPARISON: Prior chest x-ray 07/25/2018 HISTORY: Congestive heart failure, abnormal chest x-ray TECHNIQUE: frontal view of the chest is obtained on 2 images. FINDINGS: Heart remains enlarged. There is blunting of the right and left costophrenic angles, obscu red right and left hemidiaphragms. Central vascularity and interstitium are increased. There is some improvement in aeration in the perihilar location on the right. No evident pneumothorax. There are ov erlying cardiac leads. IMPRESSION: There is some improvement in aeration. Bibasilar effusions. Findings compatible with pat ient's history congestive heart failure.
--- NOTE | 2018-07-28 15:04 | US ---
EXAMINATION TYPE: US chest DATE OF EXAM: 07/28/2018 COMPARISON: Chest x-ray same day CLINICAL HISTORY: Markings for thoracentesis by pulmonary staff. TECHNIQUE: Targeted ultrasound of the posterior lower bilateral hemithoraces EXAM MEASUREMENTS: Right Pleural Effusion pocket size: 8.4 cm Right skin surface to fluid distance: 2.0 cm Left Pleural Effusion pocket size: 1.3 cm Left skin surface to fluid distance: 2.0 cm Lung prominent in fluid pocket at 4.1cm on the right Right side marked for possible thoracentesis outside the dept. Left side marked for possible thoracentesis outside the dept. Pulmonologists are able to review the images in the patient?s EMR. IMPRESSIONS: Moderate right pleural effusion, small left pleural effusion
[2018-07-28 16:15] LABS: Glucose,Whole Blood 250 mg/dL (75-99)
[2018-07-28 16:46] LABS: Calcium 9.9 mg/dL (8.4-10.2); Potassium 4.7 mmol/L (3.5-5.1)
[2018-07-28 16:57] LABS: Anisocytosis Slight; HCT 27.9 % (39.0-53.0); HGB 8.3 gm/dL (13.0-17.5); Hypochromasia Marked; MCH 27.5 pg (25.0-35.0); MCHC 29.6 g/dL (31.0-37.0); RDW 16.1 % (11.5-15.5); WBC 5.4 k/uL (3.8-10.6)
[2018-07-28 17:32] LABS: Large Platelets Present; Lymphocytes # (M) 0.27 k/uL (1.0-4.8); Monocytes # (M) 0.16 k/uL (0-1.0); Neutrophils # (M) 4.97 k/uL (1.3-7.7); Neutrophils % (M) 92 %; Nucleated Red Blood Cells 0 /100 WBC (0-0); Total Cells Counted 100
[2018-07-28 17:33] LABS: Platelet Count 99 k/uL (150-450); Poikilocytosis (M) Present; Polychromasia Present
[2018-07-28] MEDS: PIPERACILLIN-TAZOBACTAM 3.375 GM in SODIUM CHLORIDE 0.9% 100 ML IVPB SCH (19:39)
[2018-07-28 20:56] LABS: Glucose,Whole Blood 189 mg/dL (75-99)
[2018-07-28] MEDS: LEVOFLOXACIN 750MG-D5W PMX 750 MG in DEXTROSE/WATER 1 150ML.BAG IVPB SCH (22:30)
[2018-07-29] MEDS: PIPERACILLIN-TAZOBACTAM 3.375 GM in SODIUM CHLORIDE 0.9% 100 ML IVPB SCH ×4 (00:15→23:45)
[2018-07-29 05:51] LABS: Glucose,Whole Blood 180 mg/dL (75-99)
[2018-07-29] MEDS: PANTOPRAZOLE 40 MG TABLET PO SCH ×2 (06:35→19:36)
[2018-07-29] MEDS: IPRATROPIUM-ALBUTEROL 3 ML NEB INHALATION SCH ×2 (07:26→19:58)
[2018-07-29] MEDS: METOPROLOL TARTRATE 25 MG TAB PO SCH ×2 (09:16→21:47)
[2018-07-29] MEDS: SPIRONOLACTONE 25 MG TAB PO SCH (09:16)
[2018-07-29] MEDS: methylPREDNISolone SOD SUCCI 40 MG/ML 1 ML VIAL IV SCH ×3 (09:16→23:18)
[2018-07-29] MEDS: FERROUS SULFATE 325 MG TAB PO SCH ×3 (09:16→21:47)
[2018-07-29] MEDS ORDERED: LIDOCAINE 2% INJ 20 MG/ML (20 ML MDV) ONE (09:24)
[2018-07-29] MEDS ORDERED: HYDROmorphone 2 MG TAB PO PRN (11:19)
[2018-07-29 11:43] LABS: Glucose,Whole Blood 182 mg/dL (75-99)
--- NOTE | 2018-07-29 12:25 | P.PN ---
Subjective Progress Note Date: 07/29/18 Principal diagnosis: Acute hypoxic respiratory failure secondary to massive aspiration This is a very pleasant 77-year-old gentleman who has a significant complicated multiple medical history including recent gastrointestinal bleeding, bladder cancer, prostate cancer status post urostomy with obstruction status post nephrostomy tube placement bilaterally. He has a history of myocardial infarction, atrial fibrillation and has been off his anticoagulants since last admission. He also has a significant history of chronic and ongoing tobacco dependence along with daily alcohol use. He has severe left ventricular systolic dysfunction with ejection fraction 25-30%. He was admitted again yesterday after less than 24 hours of being post discharge for continued ongoing nausea and vomiting. He states he is resting comfortably on his couch and dozing off and awoke to himself vomiting and did aspirate and choke on his stomach contents. He states these were all liquids. No food product. Mostly bile. Chest x-ray does show evidence of right lower lobe infiltrate secondary to aspiration. There is ongoing congestive heart failure as well. He is seen today in consultation on the selective care unit. Currently he is resting fairly comfortably in bed he is laying flat. No worsening shortness of breath, cough or congestion. He is maintaining good O2 saturations in the mid 90s on 2 L/m per nasal cannula. White count 13.1. Hemoglobin 8.1. Creatinine 1.22. ProBNP 5220. He has been initiated on DuoNeb inhalations, Levaquin and Zosyn. On today's evaluation of 07/25/2018, the patient essentially the same compared to yesterday. He has a congested cough. Bringing up minimal amount of sputum. He was able to have breakfast earlier this morning. He also had there are last night. No nausea. No abdominal distention. No emesis. No aspiration reported. His white cell count is stable at 7.6. Hemoglobin stable at 8.4. The liver function tests are also stable. He remains on broad-spectrum antibiotics. Currently is on a combination of Zosyn and Levaquin. He is also on DuoNeb nebulized treatments around the clock and he is also on IV Solu- Medrol. The Gram stain and cultures still pending for now. Repeat chest x-ray was done today and it shows small bilateral pleural effusion and cardiomegaly. There is bilateral infiltrates right more than left with some limited worsening of the pulmonary infiltrates in the right lung base. Pulmonary vasculature is also pronounced. On 07/26/2018 patient seen in follow-up on selective care unit. He still has the congestive cough, but not able to bring up much sputum. No fever or chills. No chest pain. Chest x-ray on 07/25/2018 showed a worsening right lower lobe infiltrate, there was also left basilar infiltrate and bilateral pleural effusions. Vital signs remain stable, patient is afebrile, blood and sputum ultra remain negative. Today's labs have been reviewed, BNP was done and showed sodium 138, potassium is 4.5, chloride is 107, CO2 of 21, BUN of 27 creatinine of 2.13. Patient is nothing by mouth for a scheduled EGD today by Dr. Echols. Current antibiotic coverage includes Levaquin and Zosyn. On 07/29/2018 patient seen in follow-up. Yesterday's chest ultrasound showed a right pleural fluid pocket of 8.4 cm, and left pleural fluid pocket of 1.3 cm. Patient remains short of breath, he remains on 2 L per nasal cannula his pulse ox is 94%, slightly tachycardic with a rate of 112-127 BPM, afebrile. His renal profile is impaired, on 07/28/2018 his bun was 40, and creatinine was 2.36. Patient is scheduled for right thoracentesis by Dr. Kaufman this afternoon , the risks and benefits of the procedure were explained to the patient, and patient is agreeable to proceed. Lung sounds are also positive for scattered wheezes, he remains on IV steroids, nebulized bronchodilators, and empiric antibiotics in the form of Levaquin and Zosyn. Microbiology results have been negative so far. Objective - Vital Signs Vital signs: Vital Signs Temp 97.5 F L 07/29/18 08:00 Pulse 127 H 07/29/18 08:00 Resp 18 07/29/18 04:00 BP 124/70 07/29/18 08:00 Pulse Ox 94 L 07/29/18 08:00 Intake & Output 07/28/18 07/29/18 07/29/18 18:59 06:59 18:59 Intake Total 666 400 Output Total 1 1703 150 Balance 665 -1303 -150 Weight 97.1 kg Intake: Intake, IV Titration 70 100 Amount IV Fluid Continuation 1, 20 000 ml @ 0 mls/hr IV .STK -[facility] Rx#:[id number] Piperacillin-Tazobactam 3 50 100 .375 gm In Sodium Chloride 0.9% 100 ml @ 25 mls/hr IVPB Q8HR [facility] Rx# :[id number] Oral 596 300 Output: Urine 1700 150 Stool 1 3 Other: Voiding Method Ileal Conduit (Right) Ileal Conduit (Right) Ileal Conduit ( Right) Ileal Conduit (Left) Ileal Conduit (Left) Ileal Conduit (Left) # Voids 2 - Exam General appearance: cooperative, no acute distress - EENT Eyes: EOMI, PERRLA ENT: hearing grossly normal Ears: bilateral: normal - Neck Carotids: bilateral: upstroke normal Thyroid: bilateral: normal size - Respiratory Respiratory: right: Diminished breath sounds at the right base, diffuse wheezes throughout the lung malloy - Cardiovascular Rhythm: irregularly irregular Heart sounds: normal: S1, S2 - Gastrointestinal General gastrointestinal: normal bowel sounds - Integumentary Integumentary: normal turgor - Neurologic Neurologic: CNII-XII intact - Musculoskeletal Musculoskeletal: generalized weakness - Psychiatric Psychiatric: A&O x's 3, appropriate affect - Labs CBC & Chem 7: 07/28/18 15:55 07/28/18 15:55 Labs: Abnormal Lab Results - Last 24 Hours (Table) 07/28/18 07/28/18 07/28/18 Range/Units 15:55 15:55 16:12 RBC 3.00 L (4.30-5.90) m/uL Hgb 8.3 L (13.0-17.5) gm/dL Hct 27.9 L (39.0-53.0) % MCHC 29.6 L (31.0-37.0) g/dL RDW 16.1 H (11.5-15.5) % Plt Count 99 L (150-450) k/uL Lymphocytes # (Manual) 0.27 L (1.0-4.8) k/uL Sodium 136 L (137-145) mmol/L BUN 40 H (9-20) mg/dL Creatinine 2.36 H (0.66-1.25) mg/dL Glucose 205 H (74-99) mg/dL POC Glucose (mg/dL) 250 H (75-99) mg/dL 07/28/18 07/29/18 07/29/18 Range/Units 20:51 05:50 11:37 RBC (4.30-5.90) m/uL Hgb (13.0-17.5) gm/dL Hct (39.0-53.0) % MCHC (31.0-37.0) g/dL RDW (11.5-15.5) % Plt Count (150-450) k/uL Lymphocytes # (Manual) (1.0-4.8) k/uL Sodium (137-145) mmol/L BUN (9-20) mg/dL Creatinine (0.66-1.25) mg/dL Glucose (74-99) mg/dL POC Glucose (mg/dL) 189 H 180 H 182 H (75-99) mg/dL Microbiology - Last 24 Hours (Table) 07/23/18 13:14 Blood Culture - Preliminary Blood No Growth after 120 hours 07/28/18 03:21 Urine Culture - Preliminary Urine,Voided Assessment and Plan Plan: #1 Acute hypoxic respiratory failure secondary to massive aspiration occurring at a time of emesis. The patient has by the pulmonary infiltrates with some interval worsening on the right. He is on accommodation of Zosyn and Levaquin for now. #2 Recent admission for nausea and vomiting. #3 Recent admissions for acute on chronic GI bleeding. #4 Chronic atrial fibrillation, currently off warfarin. #5 Acute on chronic renal injury secondary to chronic cardiorenal syndrome. #6 Ischemic cardiomyopathy with ejection fraction 20-30%. #7 History of bladder and prostate cancer and ileostomy nonfunctioning. Bilateral nephrostomy tubes in place. #8 History of chronic tobacco dependence. #9 Chronic obstructive pulmonary disease. #10 History of alcohol use. Plan: Continue current antibiotic coverage, cultures remain negative thus far, modified barium swallow showed vallecular retention without overt aspiration. Patient remains short of breath, and bronchospastic, will continue with IV steroids for now, we'll proceed with right-sided thoracentesis today by Dr. Kaufman. The risks and benefits of the procedure were explained to the patient, and he is agreeable to proceed. We'll continue with nebulized bronchodilators. I performed a history & physical examination of the patient and discussed their management with my nurse practitioner, Reyna Greenwood. I reviewed the nurse practitioner's note and agree with the documented findings and plan of care. Lung sounds are diminished at the right base, and diffuse wheezes throughout. The findings and the impression was discussed with the patient. I attest to the documentation by the nurse practitioner. Time with Patient: Less than 30
--- NOTE | 2018-07-29 13:57 | PN ---
PROGRESS NOTE DATE OF SERVICE: 07/25/2018 CHIEF COMPLAINT: 1. Renal failure. 2. Obstructive ureteropathy. HISTORY OF PRESENT ILLNESS: This gentleman is improving. His pneumonia is definitely clearing. He is not having any chest pain, shortness of breath, etc. There is concern because there is some leakage around the left nephrostomy tube and his creatinine has gone up slightly. PHYSICAL EXAM: He remains pale. Chest is clear and the cardiac exam is unchanged. The abdomen is soft and there is fluid coming from the right nephrostomy tube. IMPRESSION: 1. Renal failure. 2. Obstructive ureteropathy. 3. Possible obstruction or dislodging of the left nephrostomy tube. PLAN: Continue to monitor and he may need to be reassessed by Urology. MMODL / IJN: [id number] /
--- NOTE | 2018-07-29 14:03 | PN ---
PROGRESS NOTE DATE OF SERVICE: 07/27/2018. CHIEF COMPLAINT: Renal failure, atrial fibrillation. HISTORY OF PRESENT ILLNESS: This gentleman's is doing fairly well, but his left nephrostomy tube does not seem to be functioning. This will be brought to the attention of Urology. PHYSICAL EXAMINATION: He remains pale. The cardiac exam is unchanged and chest is clear. IMPRESSION: 1. Renal failure. 2. Obstructive ureteropathy. 3. Atrial fibrillation. 4. Congestive heart failure. 5. Aspiration pneumonia. PLAN: Discuss issue with left ureterostomy and Urology. MMODL / IJN: [id number] /
--- NOTE | 2018-07-29 14:09 | PN ---
PROGRESS NOTE DATE OF SERVICE: 07/28/2018 CHIEF COMPLAINT: Atrial fibrillation, renal failure, anemia and history of blood loss. HISTORY OF PRESENT ILLNESS: This patient is doing about the same, but his heart rate is up. This is not unusual for him with his atrial fibrillation. He apparently is not draining urine from the left kidney. This is being re-evaluated by Interventional Radiology. PHYSICAL EXAM: He is awake and alert. Chest is clear. Cardiac exam demonstrated atrial fibrillation with rapid ventricular response. The abdomen is soft, nontender. IMPRESSION: 1. Atrial fibrillation with RVR. 2. Renal failure. 3. Obstructive ureteropathy. 4. Failure of left nephrostomy tube. PLAN: Await the management of the left nephrostomy tube by Interventional Radiology. MMODL / IJN: [id number] /
--- NOTE | 2018-07-29 14:15 | PN ---
PROGRESS NOTE DATE OF SERVICE: 07/29/2018 CHIEF COMPLAINT: Renal failure. HISTORY OF PRESENT ILLNESS: This gentleman is quite agitated and upset. He had a new nephrostomy tube inserted during the middle of the night on the left. There is no urine on the collection bag on that side. He really needs to get to a tertiary hospital where he can have surgical intervention for the end ureteral obstructions that dump into his ileal conduit. However, it sounds like his insurance is not accepted where he was supposed to be referred. PHYSICAL EXAM: He is very agitated. He is pale. He is awake and alert. Cardiac exam is unchanged. Chest is clear. IMPRESSION: 1. Renal failure. 2. Ureterovesical ileal conduit obstruction. 3. Anemia. 4. History of upper gastrointestinal bleed. PLAN: This will be discussed with Urology. PARISH / WARREN: [id number] /
--- NOTE | 2018-07-29 17:42 | XR ---
EXAMINATION TYPE: XR chest 1V portable DATE OF EXAM: 07/29/2018 COMPARISON: 07/28/2018 HISTORY: Thoracentesis TECHNIQUE: Single frontal view of the chest is obtained. FINDINGS: There is probably vascular congestion. Heart is enlarged. There are chest leads. There is blunting of the right and left costophrenic angle and more on the left side. There is small right api kaitlin pneumothorax. IMPRESSION: Mild congestive heart failure. There is significant decreased right pleural effusion com pared to yesterday. There is small right apical pneumothorax noted. This is probably less than 10%.
[2018-07-29 20:35] LABS: Appearance,BF Cloudy; Color,BF Yellow
[2018-07-29 20:49] LABS: Glucose,Whole Blood 159 mg/dL (75-99)
[2018-07-29 21:34] LABS: Nucleated Cells, Body Fluid 0 /uL; RBC, Body Fluid 4400 /uL
--- NOTE | 2018-07-30 00:08 | PCN ---
PROCEDURE NOTE OPERATIVE REPORT: Right-sided thoracentesis. PREOPERATIVE DIAGNOSIS: Right sided pleural effusion. POSTOPERATIVE DIAGNOSES: Right-sided pleural effusion complicated by clinical pneumothorax. PROCEDURE: The patient was placed in a sitting upright position, the area below the right scapula was prepared in a sterile fashion and drapes were applied. At the level of the 8th intercostal space and tip of the scapula, the area was locally anesthetized, and a 26- gauge needle was inserted at the same site, advanced into the pleural space, fluid was obtained. I then attempted to enter the same site with a thoracentesis catheter and needle, however, as I entered the space again, and no fluid could be obtained. Attempted to go 1 space below the marked space by ultrasound, and at this time, I was able to enter the space, fluid was localized initially with a 26-gauge needle, and then I inserted a catheter with a needle into that same space which is the 9th intercostal space and tip of the scapula, the fluid was obtained, the catheter was advanced into the pleural space and the needle was pulled out of the pleural space. Free flowing fluid was obtained, slightly blood-tinged, and roughly 1500 mL of fluid was removed from this space. However, at the end of the procedure, I was noticing there was a significant amount of air coming into the collecting bottle. The catheter was kept in place, Dr. Hernández/thoracic surgeon was available at the time, and he connected the catheter to a Pleur-Evac. The catheter was secured in place, a chest x-ray postoperatively showed complete expansion of the lung, and no radiographic pneumothorax could be seen. But clinically, the patient did have pneumothorax based on the air noted in the collecting bottle. MMODL / IJN: [id number] /
[2018-07-30 02:24] LABS: Total Protein, Body Fluid 1510 mg/dL
[2018-07-30 06:01] LABS: Glucose,Whole Blood 257 mg/dL (75-99)
[2018-07-30] MEDS: PANTOPRAZOLE 40 MG TABLET PO SCH ×2 (06:09→17:12)
[2018-07-30] MEDS: IPRATROPIUM-ALBUTEROL 3 ML NEB INHALATION SCH ×2 (07:12→21:08)
--- NOTE | 2018-07-30 08:47 | XR ---
EXAMINATION TYPE: XR chest 1V portable DATE OF EXAM: 07/30/2018 COMPARISON: 07/29/2018 HISTORY: Right pneumothorax follow-up exam. TECHNIQUE: Single frontal view of the chest is obtained. FINDINGS: There is interval worsening of the right-sided basilar pneumothorax with maximal pleural s eparation of approximately 2 cm. This was approximately 4 mm on the prior. Right basilar thoracostomy tube is in similar position. Small left pleural effusion is noted with bibasilar atelectasis. Cardia c silhouette is enlarged. Osseous structures are grossly intact. IMPRESSION: Increasing right basilar pneumothorax in comparison to the prior. Stable bibasilar atele ctasis and trace left pleural effusion.
[2018-07-30] MEDS ORDERED: LIDOCAINE 1% INJ 10MG/ML (20 ML MDV) ONE (09:42)
[2018-07-30] MEDS ORDERED: LIDOCAINE 1% INJ 10MG/ML (20 ML MDV) SQ ONE ×2 (09:58)
[2018-07-30] MEDS ORDERED: IOPAMIDOL-250 100ML BTL IV ONE (10:01)
[2018-07-30 11:13] LABS: Glucose,Whole Blood 172 mg/dL (75-99)
--- NOTE | 2018-07-30 12:09 | P.PN ---
Subjective Progress Note Date: 07/30/18 Principal diagnosis: Acute hypoxic respiratory failure secondary to aspiration This is a very pleasant 77-year-old gentleman who has a significant complicated multiple medical history including recent gastrointestinal bleeding, bladder cancer, prostate cancer status post urostomy with obstruction status post nephrostomy tube placement bilaterally. He has a history of myocardial infarction, atrial fibrillation and has been off his anticoagulants since last admission. He also has a significant history of chronic and ongoing tobacco dependence along with daily alcohol use. He has severe left ventricular systolic dysfunction with ejection fraction 25-30%. He was admitted again yesterday after less than 24 hours of being post discharge for continued ongoing nausea and vomiting. He states he is resting comfortably on his couch and dozing off and awoke to himself vomiting and did aspirate and choke on his stomach contents. He states these were all liquids. No food product. Mostly bile. Chest x-ray does show evidence of right lower lobe infiltrate secondary to aspiration. There is ongoing congestive heart failure as well. He is seen today in consultation on the selective care unit. Currently he is resting fairly comfortably in bed he is laying flat. No worsening shortness of breath, cough or congestion. He is maintaining good O2 saturations in the mid 90s on 2 L/m per nasal cannula. White count 13.1. Hemoglobin 8.1. Creatinine 1.22. ProBNP 5220. He has been initiated on DuoNeb inhalations, Levaquin and Zosyn. On today's evaluation of 07/25/2018, the patient essentially the same compared to yesterday. He has a congested cough. Bringing up minimal amount of sputum. He was able to have breakfast earlier this morning. He also had there are last night. No nausea. No abdominal distention. No emesis. No aspiration reported. His white cell count is stable at 7.6. Hemoglobin stable at 8.4. The liver function tests are also stable. He remains on broad-spectrum antibiotics. Currently is on a combination of Zosyn and Levaquin. He is also on DuoNeb nebulized treatments around the clock and he is also on IV Solu- Medrol. The Gram stain and cultures still pending for now. Repeat chest x-ray was done today and it shows small bilateral pleural effusion and cardiomegaly. There is bilateral infiltrates right more than left with some limited worsening of the pulmonary infiltrates in the right lung base. Pulmonary vasculature is also pronounced. On 07/26/2018 patient seen in follow-up on selective care unit. He still has the congestive cough, but not able to bring up much sputum. No fever or chills. No chest pain. Chest x-ray on 07/25/2018 showed a worsening right lower lobe infiltrate, there was also left basilar infiltrate and bilateral pleural effusions. Vital signs remain stable, patient is afebrile, blood and sputum ultra remain negative. Today's labs have been reviewed, BNP was done and showed sodium 138, potassium is 4.5, chloride is 107, CO2 of 21, BUN of 27 creatinine of 2.13. Patient is nothing by mouth for a scheduled EGD today by Dr. Echols. Current antibiotic coverage includes Levaquin and Zosyn. The patient is seen again today July 27 2018 in follow-up on the selective care unit. He is currently sitting up at the bedside. He is eating eggs and sims. He denies any cough or congestion. He did undergo EGD yesterday that revealed no active bleeding. No significant findings. GI is referring to hematology regarding the anemia. Blood and sputum cultures reveal no growth. Creatinine 2.31. He remains on Zosyn and Levaquin. He is maintaining O2 saturations in the low 90s on 2 L/m per nasal cannula. He's been afebrile. Continued on IV Solu-Medrol and bronchodilators. The patient is seen again today 07/28/2018 in follow-up on the selective care unit. He is awake and alert in no acute distress. He denies any worsening shortness of breath, cough or congestion. Still somewhat bronchospastic and wheezy with minimal exertion. He is maintaining O2 saturations in the upper 90s on 2 L/m per nasal cannula. He is afebrile. Slightly tachycardic. Blood pressure stable. Sputum and blood cultures reveal no growth. He remains on bronchodilators, IV Solu-Medrol, Levaquin and Zosyn. On 07/29/2018 patient seen in follow-up. Yesterday's chest ultrasound showed a right pleural fluid pocket of 8.4 cm, and left pleural fluid pocket of 1.3 cm. Patient remains short of breath, he remains on 2 L per nasal cannula his pulse ox is 94%, slightly tachycardic with a rate of 112-127 BPM, afebrile. His renal profile is impaired, on 07/28/2018 his bun was 40, and creatinine was 2.36. Patient is scheduled for right thoracentesis by Dr. Kaufman this afternoon , the risks and benefits of the procedure were explained to the patient, and patient is agreeable to proceed. Lung sounds are also positive for scattered wheezes, he remains on IV steroids, nebulized bronchodilators, and empiric antibiotics in the form of Levaquin and Zosyn. Microbiology results have been negative so far. The patient is seen again today 07/30/2018 in follow-up on the selective care unit. He did undergo a right-sided thoracentesis by Dr. Hickey yesterday. The patient developed a pneumothorax and into was left in place and currently to a Pleur-evac. Air leak remains. His chest x-ray shows increased right basilar pneumothorax compared to yesterday. There is also bibasilar atelectasis and trace left pleural effusion. He is currently resting comfortably in bed. He is awake and alert in no acute distress. He states he is breathing easier today as compared to yesterday. Currently maintaining O2 saturations in the mid 90s on room air. He's been afebrile. Hemodynamically stable. Blood cultures reveal no growth. Sputum culture reveals no growth. Urine culture reveals no growth. Pleural fluid results are pending. The patient did go down for a nephrostomy tube change out this morning. 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 Objective - Vital Signs Vital signs: Vital Signs Temp 96.9 F L 07/30/18 08:00 Pulse 111 H 07/30/18 08:00 Resp 16 07/30/18 11:18 BP 110/68 07/30/18 10:49 Pulse Ox 95 07/30/18 10:49 Intake & Output 07/29/18 07/30/18 07/30/18 18:59 06:59 18:59 Intake Total 802 200 Output Total 150 501 1 Balance 652 -301 -1 Weight 95.2 kg Intake: Intake, IV Titration 100 200 Amount Piperacillin-Tazobactam 3 100 200 .375 gm In Sodium Chloride 0.9% 100 ml @ 25 mls/hr IVPB Q8HR [facility] Rx# :[id number] Oral 702 Output: Urine 150 500 Stool 1 1 Other: Voiding Method Ileal Conduit (Right) Ileal Conduit (Right) Ileal Conduit ( Right) Ileal Conduit (Left) Ileal Conduit (Left) Ileal Conduit (Left) # Voids 1 # Bowel Movements 1 - Exam General appearance: cooperative, no acute distress - EENT Eyes: EOMI, PERRLA ENT: hearing grossly normal Ears: bilateral: normal - Neck Carotids: bilateral: upstroke normal Thyroid: bilateral: normal size - Respiratory Respiratory: right: rhonchi, but no wheezing or rales. Right-sided chest tube in place. - Cardiovascular Rhythm: irregularly irregular Heart sounds: normal: S1, S2 - Gastrointestinal General gastrointestinal: normal bowel sounds : Bilateral nephrostomy tubes in place. - Integumentary Integumentary: normal turgor - Neurologic Neurologic: CNII-XII intact - Musculoskeletal Musculoskeletal: generalized weakness - Psychiatric Psychiatric: A&O x's 3, appropriate affect - Labs CBC & Chem 7: 07/28/18 15:55 07/28/18 15:55 Labs: Abnormal Lab Results - Last 24 Hours (Table) 07/29/18 07/30/18 07/30/18 Range/Units 20:37 06:00 11:08 POC Glucose (mg/dL) 159 H 257 H 172 H (75-99) mg/dL Microbiology - Last 24 Hours (Table) 07/28/18 03:21 Urine Culture - Final Urine,Voided 07/29/18 16:09 Gram Stain - Preliminary Pleural Fluid Body Fluid Culture - Preliminary 07/29/18 16:09 Acid Fast Bacilli Culture - Preliminary Pleural Fluid 07/29/18 16:09 Fungal Culture - Preliminary Pleural Fluid 07/23/18 13:14 Blood Culture - Final Blood No Growth after 144 hours Assessment and Plan Assessment: Impression: #1 Acute hypoxic respiratory failure secondary to an acute aspiration secondary to vomiting. Barium swallow with video revealed vallecular retention without evidence of aspiration. The patient underwent a right-sided thoracentesis on with subsequent pneumothorax. Tube remains in place. Air leak is present. X-ray still shows pleural-based pneumothorax. #2 Recent admission for nausea and vomiting. #3 Recent admissions for acute on chronic GI bleeding. #4 Chronic atrial fibrillation, currently off warfarin. #5 Acute on chronic renal injury secondary to chronic cardiorenal syndrome. #6 Ischemic cardiomyopathy with ejection fraction 20-30%. #7 History of bladder and prostate cancer and ileostomy nonfunctioning. Bilateral nephrostomy tubes in place. #8 History of chronic tobacco dependence. #9 Chronic obstructive pulmonary disease. #10 History of alcohol use. Plan: The patient was seen and evaluated by Dr. Hickey. A right-sided thoracentesis was performed yesterday with subsequent pneumothorax. Chest tube remains in place. Air leak present. Chest x-ray shows continued right sided pneumothorax. The patient did have a change out of the nephrostomy tube. The plan is to send him to a tertiary care center regarding the uterovesicle ileal conduit obstruction. We will continue to follow. Repeat chest x-ray in a.m. if the patient is not transferred prior to then. I, the cosigning physician, performed a history & physical examination of the patient. Lungs sounds scattered rhonchi more so on the right, crackles in the posterior bases. Maintaining good O2 saturations in the 90s on 2 L/m per nasal. I discussed the assessment and plan of care with my nurse practitioner, Octavia Wu. I attest to the above note as dictated by her.
[2018-07-30] MEDS: PIPERACILLIN-TAZOBACTAM 3.375 GM in SODIUM CHLORIDE 0.9% 100 ML IVPB SCH ×3 (13:14→23:42)
[2018-07-30] MEDS: methylPREDNISolone SOD SUCCI 40 MG/ML 1 ML VIAL IV SCH ×3 (13:19→23:42)
[2018-07-30] MEDS: FERROUS SULFATE 325 MG TAB PO SCH ×3 (13:20→21:03)
[2018-07-30] MEDS: METOPROLOL TARTRATE 25 MG TAB PO SCH ×2 (13:20→21:02)
[2018-07-30] MEDS: SPIRONOLACTONE 25 MG TAB PO SCH (13:20)
--- NOTE | 2018-07-30 13:36 | IR ---
EXAMINATION TYPE: IR nephrostomy tube change DATE OF EXAM: 07/30/2018 COMPARISON: 07/13/2018 HISTORY: Leaking left percutaneous nephrostomy tube FINDINGS: The procedure was discussed with the patient. The risks, complications, benefits, and alternatives we re discussed and any questions were answered. Informed consent was obtained. The patient was placed prone on the fluoroscopic table and prepped and draped in the usual sterile fa shion. All elements of maximal barrier and sterile technique were utilized. Diluted contrast was inje cted through the pre-existing tube. Catheter was cut and exchanged over a guidewire for a new 10Frenc h left percutaneous nephrostomy tube. Repeat injection demonstrated ideal placement catheter. The patient was stable throughout the procedure and remained stable upon discharge from Department of Radiology. IMPRESSION: 1. Successful left percutaneous nephrostomy tube exchange over a guidewire.
[2018-07-30 14:25] VITALS: BMI 27.6
[2018-07-30] MEDS: LEVOFLOXACIN 750MG-D5W PMX 750 MG in DEXTROSE/WATER 1 150ML.BAG IVPB SCH (14:59)
[2018-07-30 15:31] LABS: Appearance,Urine Cloudy (Clear); Bilirubin,Urine Negative (Negative); Blood,Urine Large (Negative); Color,Urine Light Red; Glucose,Urine (UA) Negative (Negative); Hyaline Casts,Urine 2 /lpf (0-2); Ketones,Urine Negative (Negative); Leukocyte Esterase,Urine Small (Negative); Nitrite,Urine Negative (Negative); PH, Urine 6.5 (5.0-8.0); Protein,Urine 1+ (Negative); RBC,Urine >182 /hpf (0-5); Specific Gravity,Urine 1.014 (1.001-1.035); Squamous Epithelial Cell,Urine <1 /hpf (0-4); Urobilinogen,Urine <2.0 mg/dL (<2.0); WBC,Urine 7 /hpf (0-5)
[2018-07-30] MEDS: IPRATROPIUM-ALBUTEROL 3 ML NEB INHALATION PRN (15:46)
[2018-07-30 16:34] LABS: Glucose,Whole Blood 236 mg/dL (75-99)
[2018-07-30] MEDS: INSULIN ASPART 100 UNIT/ML 1 ML 10 ML VIAL SQ SCH ×2 (17:29→21:03)
[2018-07-30 20:47] LABS: Glucose,Whole Blood 239 mg/dL (75-99)
[2018-07-31 05:49] LABS: Glucose,Whole Blood 204 mg/dL (75-99)
[2018-07-31] MEDS: PANTOPRAZOLE 40 MG TABLET PO SCH ×2 (06:49→16:53)
[2018-07-31] MEDS: INSULIN ASPART 100 UNIT/ML 1 ML 10 ML VIAL SQ SCH ×4 (06:49→20:54)
[2018-07-31] MEDS: FERROUS SULFATE 325 MG TAB PO SCH ×3 (07:57→20:54)
[2018-07-31] MEDS: PIPERACILLIN-TAZOBACTAM 3.375 GM in SODIUM CHLORIDE 0.9% 100 ML IVPB SCH ×3 (07:57→23:13)
[2018-07-31] MEDS: SPIRONOLACTONE 25 MG TAB PO SCH (07:57)
[2018-07-31] MEDS: METOPROLOL TARTRATE 25 MG TAB PO SCH ×2 (07:57→20:54)
[2018-07-31] MEDS: methylPREDNISolone SOD SUCCI 40 MG/ML 1 ML VIAL IV SCH ×3 (07:57→23:12)
--- NOTE | 2018-07-31 08:43 | XR ---
EXAMINATION TYPE: XR chest 1V portable DATE OF EXAM: 07/31/2018 HISTORY: ptx. REFERENCE: Previous study dated 07/30/2018. FINDINGS: There continues to be a small, right basilar pneumothorax. There is left basilar airspace disease. There is a small left effusion. The heart is mildly enlarged. IMPRESSION: NO SIGNIFICANT INTERVAL CHANGE IN THE APPEARANCE OF THE CHEST.
[2018-07-31] MEDS: IPRATROPIUM-ALBUTEROL 3 ML NEB INHALATION SCH ×2 (08:58→20:32)
[2018-07-31 11:03] LABS: Glucose,Whole Blood 247 mg/dL (75-99)
--- NOTE | 2018-07-31 11:08 | P.PN ---
Subjective Progress Note Date: 07/31/18 Principal diagnosis: Acute hypoxic respiratory failure secondary to aspiration This is a very pleasant 77-year-old gentleman who has a significant complicated multiple medical history including recent gastrointestinal bleeding, bladder cancer, prostate cancer status post urostomy with obstruction status post nephrostomy tube placement bilaterally. He has a history of myocardial infarction, atrial fibrillation and has been off his anticoagulants since last admission. He also has a significant history of chronic and ongoing tobacco dependence along with daily alcohol use. He has severe left ventricular systolic dysfunction with ejection fraction 25-30%. He was admitted again yesterday after less than 24 hours of being post discharge for continued ongoing nausea and vomiting. He states he is resting comfortably on his couch and dozing off and awoke to himself vomiting and did aspirate and choke on his stomach contents. He states these were all liquids. No food product. Mostly bile. Chest x-ray does show evidence of right lower lobe infiltrate secondary to aspiration. There is ongoing congestive heart failure as well. He is seen today in consultation on the selective care unit. Currently he is resting fairly comfortably in bed he is laying flat. No worsening shortness of breath, cough or congestion. He is maintaining good O2 saturations in the mid 90s on 2 L/m per nasal cannula. White count 13.1. Hemoglobin 8.1. Creatinine 1.22. ProBNP 5220. He has been initiated on DuoNeb inhalations, Levaquin and Zosyn. On today's evaluation of 07/25/2018, the patient essentially the same compared to yesterday. He has a congested cough. Bringing up minimal amount of sputum. He was able to have breakfast earlier this morning. He also had there are last night. No nausea. No abdominal distention. No emesis. No aspiration reported. His white cell count is stable at 7.6. Hemoglobin stable at 8.4. The liver function tests are also stable. He remains on broad-spectrum antibiotics. Currently is on a combination of Zosyn and Levaquin. He is also on DuoNeb nebulized treatments around the clock and he is also on IV Solu- Medrol. The Gram stain and cultures still pending for now. Repeat chest x-ray was done today and it shows small bilateral pleural effusion and cardiomegaly. There is bilateral infiltrates right more than left with some limited worsening of the pulmonary infiltrates in the right lung base. Pulmonary vasculature is also pronounced. On 07/26/2018 patient seen in follow-up on selective care unit. He still has the congestive cough, but not able to bring up much sputum. No fever or chills. No chest pain. Chest x-ray on 07/25/2018 showed a worsening right lower lobe infiltrate, there was also left basilar infiltrate and bilateral pleural effusions. Vital signs remain stable, patient is afebrile, blood and sputum ultra remain negative. Today's labs have been reviewed, BNP was done and showed sodium 138, potassium is 4.5, chloride is 107, CO2 of 21, BUN of 27 creatinine of 2.13. Patient is nothing by mouth for a scheduled EGD today by Dr. Echols. Current antibiotic coverage includes Levaquin and Zosyn. The patient is seen again today July 27 2018 in follow-up on the selective care unit. He is currently sitting up at the bedside. He is eating eggs and sims. He denies any cough or congestion. He did undergo EGD yesterday that revealed no active bleeding. No significant findings. GI is referring to hematology regarding the anemia. Blood and sputum cultures reveal no growth. Creatinine 2.31. He remains on Zosyn and Levaquin. He is maintaining O2 saturations in the low 90s on 2 L/m per nasal cannula. He's been afebrile. Continued on IV Solu-Medrol and bronchodilators. The patient is seen again today 07/28/2018 in follow-up on the selective care unit. He is awake and alert in no acute distress. He denies any worsening shortness of breath, cough or congestion. Still somewhat bronchospastic and wheezy with minimal exertion. He is maintaining O2 saturations in the upper 90s on 2 L/m per nasal cannula. He is afebrile. Slightly tachycardic. Blood pressure stable. Sputum and blood cultures reveal no growth. He remains on bronchodilators, IV Solu-Medrol, Levaquin and Zosyn. On 07/29/2018 patient seen in follow-up. Yesterday's chest ultrasound showed a right pleural fluid pocket of 8.4 cm, and left pleural fluid pocket of 1.3 cm. Patient remains short of breath, he remains on 2 L per nasal cannula his pulse ox is 94%, slightly tachycardic with a rate of 112-127 BPM, afebrile. His renal profile is impaired, on 07/28/2018 his bun was 40, and creatinine was 2.36. Patient is scheduled for right thoracentesis by Dr. Kaufman this afternoon , the risks and benefits of the procedure were explained to the patient, and patient is agreeable to proceed. Lung sounds are also positive for scattered wheezes, he remains on IV steroids, nebulized bronchodilators, and empiric antibiotics in the form of Levaquin and Zosyn. Microbiology results have been negative so far. The patient is seen again today 07/30/2018 in follow-up on the selective care unit. He did undergo a right-sided thoracentesis by Dr. Hickey yesterday. The patient developed a pneumothorax and into was left in place and currently to a Pleur-evac. Air leak remains. His chest x-ray shows increased right basilar pneumothorax compared to yesterday. There is also bibasilar atelectasis and trace left pleural effusion. He is currently resting comfortably in bed. He is awake and alert in no acute distress. He states he is breathing easier today as compared to yesterday. Currently maintaining O2 saturations in the mid 90s on room air. He's been afebrile. Hemodynamically stable. Blood cultures reveal no growth. Sputum culture reveals no growth. Urine culture reveals no growth. Pleural fluid results are pending. The patient did go down for a nephrostomy tube change out this morning. 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 The patient is seen again today on 07/31/2018 in follow-up on the selective care unit. He is currently resting comfortably in bed. He is awake and alert in no acute distress. Chest tube has been clamped. Follow-up chest x-ray pending. He denies any worsening shortness of breath, cough or congestion. He is maintaining good O2 saturations in the high 90s on 2 L/m per nasal cannula. He still tachycardic. Blood pressure stable. Blood cultures reveal no growth. Pleural fluid reveals no growth. Nephrostomy tubes are patent. The plan is for transfer to [facility] for further urologic evaluation. The patient was not accepted at [facility]. Objective - Vital Signs Vital signs: Vital Signs Temp 97.0 F L 07/31/18 00:10 Pulse 122 H 07/31/18 09:09 Resp 18 07/31/18 07:42 BP 118/78 07/31/18 07:42 Pulse Ox 99 07/31/18 07:42 Intake & Output 07/30/18 07/31/18 07/31/18 18:59 06:59 18:59 Intake Total 280 120 Output Total 201 1051 Balance -201 -771 120 Weight 95.2 kg 97.2 kg Intake: IV 40 0.9 40 Oral 240 120 Output: Urine 200 1050 Stool 1 1 Other: Voiding Method Ileal Conduit (Right) Ileal Conduit (Right) Ileal Conduit ( Right) Ileal Conduit (Left) Ileal Conduit (Left) Ileal Conduit (Left) - Exam General appearance: cooperative, no acute distress - EENT Eyes: EOMI, PERRLA ENT: hearing grossly normal Ears: bilateral: normal - Neck Carotids: bilateral: upstroke normal Thyroid: bilateral: normal size - Respiratory Respiratory: right: rhonchi, but no wheezing or rales. Right-sided chest tube in place. - Cardiovascular Rhythm: irregularly irregular Heart sounds: normal: S1, S2 - Gastrointestinal General gastrointestinal: normal bowel sounds : Bilateral nephrostomy tubes in place. - Integumentary Integumentary: normal turgor - Neurologic Neurologic: CNII-XII intact - Musculoskeletal Musculoskeletal: generalized weakness - Psychiatric Psychiatric: A&O x's 3, appropriate affect - Labs CBC & Chem 7: 07/28/18 15:55 07/28/18 15:55 Labs: Abnormal Lab Results - Last 24 Hours (Table) 07/30/18 07/30/18 07/30/18 Range/Units 11:08 14:00 16:32 POC Glucose (mg/dL) 172 H 236 H (75-99) mg/dL Urine Protein 1+ H (Negative) Urine Blood Large H (Negative) Ur Leukocyte Esterase Small H (Negative) Urine RBC >182 H (0-5) /hpf Urine WBC 7 H (0-5) /hpf 07/30/18 07/31/18 Range/Units 20:46 05:48 POC Glucose (mg/dL) 239 H 204 H (75-99) mg/dL Urine Protein (Negative) Urine Blood (Negative) Ur Leukocyte Esterase (Negative) Urine RBC (0-5) /hpf Urine WBC (0-5) /hpf Microbiology - Last 24 Hours (Table) 07/29/18 16:09 Acid Fast Bacilli Smear - Final Pleural Fluid Acid Fast Bacilli Culture - Preliminary 07/29/18 16:09 Gram Stain - Preliminary Pleural Fluid Body Fluid Culture - Preliminary 07/28/18 03:21 Urine Culture - Final Urine,Voided Assessment and Plan Assessment: Impression: #1 Acute hypoxic respiratory failure secondary to an acute aspiration secondary to vomiting. Barium swallow with video revealed vallecular retention without evidence of aspiration. The patient underwent a right-sided thoracentesis on with subsequent pneumothorax. Tube remains in place and clamped. Follow-up chest x-ray pending #2 Recent admission for nausea and vomiting. #3 Recent admissions for acute on chronic GI bleeding. #4 Chronic atrial fibrillation, currently off warfarin. #5 Acute on chronic renal injury secondary to chronic cardiorenal syndrome. #6 Ischemic cardiomyopathy with ejection fraction 20-30%. #7 History of bladder and prostate cancer and ileostomy nonfunctioning. Bilateral nephrostomy tubes in place. #8 History of chronic tobacco dependence. #9 Chronic obstructive pulmonary disease. #10 History of alcohol use. Plan: The patient was seen and evaluated by Dr. Hickey. Chest tube remains in place early clamped in follow-up chest x-ray is pending. Nephrostomy tubes patent. The plan is to send him to a tertiary care center, possibly [facility] , regarding the uterovesicle ileal conduit obstruction. We will continue to follow. I, the cosigning physician, performed a history & physical examination of the patient. Lungs sounds scattered rhonchi more so on the right, crackles in the posterior bases. Maintaining good O2 saturations in the 90s on 2 L/m per nasal. I discussed the assessment and plan of care with my nurse practitioner, Octavia Wu. I attest to the above note as dictated by her.
--- NOTE | 2018-07-31 11:13 | XR ---
EXAMINATION TYPE: XR chest 1V portable DATE OF EXAM: 07/31/2018 HISTORY: right pneumothorax. REFERENCE: Previous study dated 07/31/2018. FINDINGS: The heart is enlarged. There is a small left effusion. There is increased interstitial gayle ings. IMPRESSION: I CANNOT EXCLUDE SOME MILD HEART FAILURE WITH A SMALL CONCOMITANT LEFT EFFUSION.
[2018-07-31 11:21] LABS: Calcium 10.3 mg/dL (8.4-10.2); Magnesium 1.5 mg/dL (1.6-2.3)
[2018-07-31] MEDS ORDERED: Magnesium Replacement Protocol 1 EACH MISC MISCELLANE PRN (13:05)
--- NOTE | 2018-07-31 13:56 | PN ---
PROGRESS NOTE DATE OF SERVICE: 07/30/2018. CHIEF COMPLAINT: Renal failure, obstructive uropathy, congestive heart failure, atrial fibrillation and a pleural effusion. HISTORY OF PRESENT ILLNESS: This gentleman is getting a little bit weaker. We are going to try to transfer him to [facility]. PHYSICAL EXAM: Remains pale. Chest demonstrates decreased breath sounds throughout. Cardiac exam demonstrates atrial fibrillation with a rate around 100. Abdomen is soft, nontender. Extremities are normal. IMPRESSION: 1. Status post upper GI hemorrhages with septic shock and renal failure. 2. Obstructive ureteropathy. 3. Atrial fibrillation. 4. Congestive heart failure. PLAN: Try to transfer patient to [facility] at the family's request. MMODL / IJN: [id number] /
--- NOTE | 2018-07-31 14:11 | PN ---
PROGRESS NOTE DATE OF SERVICE: 07/31/2018 CHIEF COMPLAINT: Renal failure. HISTORY OF PRESENT ILLNESS: This gentleman is just about the same. He may be getting progressively more weak. Left nephrostomy tube does seem to be draining at this time. PHYSICAL EXAM: He is in atrial fibrillation. He has decreased breath sounds at the bases. Abdomen is soft, nontender. IMPRESSION: 1. Renal failure. 2. Obstructive ureteropathy. 3. Atrial fibrillation. 4. Congestive heart failure. 5. General debility and weakness. PLAN: He was not accepted at [facility] yesterday. Family is intent on trying to get him into that institution. They stated they know people and they may be able to get him in. There is a long discussion with her daughter and son-in-law and it was explained to them that he is gradually getting weaker and should get in to a tertiary institution fairly soon before surgery whereby the ureters will be reimplanted in the ileal loop. They understand and will try to either take him directly themselves to the emergency room or work through acquaintances there. It was explained that if he is still here on Thursday and nothing further has developed in terms of his being accepted at [place], they would be highly encouraged to allow us to transfer him to [facility]. MMODL / IJN: [id number] /
[2018-07-31] MEDS: MAGNESIUM SULFATE-D5W PMX 1 GM in DEXTROSE/WATER 1 100ML.BAG IVPB SCH ×2 (14:24→15:45)
[2018-07-31 16:37] LABS: Glucose,Whole Blood 240 mg/dL (75-99)
[2018-07-31 20:25] LABS: Glucose,Whole Blood 206 mg/dL (75-99)
[2018-08-01 06:32] LABS: Glucose,Whole Blood 236 mg/dL (75-99)
[2018-08-01] MEDS: INSULIN ASPART 100 UNIT/ML 1 ML 10 ML VIAL SQ SCH ×4 (06:59→21:06)
[2018-08-01] MEDS: PANTOPRAZOLE 40 MG TABLET PO SCH ×2 (06:59→17:37)
[2018-08-01] MEDS: IPRATROPIUM-ALBUTEROL 3 ML NEB INHALATION SCH ×2 (06:59→21:06)
[2018-08-01] MEDS: METOPROLOL TARTRATE 25 MG TAB PO SCH ×2 (09:58→21:06)
[2018-08-01] MEDS: methylPREDNISolone SOD SUCCI 40 MG/ML 1 ML VIAL IV SCH ×2 (09:58→21:06)
[2018-08-01] MEDS: FERROUS SULFATE 325 MG TAB PO SCH ×3 (09:59→21:06)
[2018-08-01] MEDS: SPIRONOLACTONE 25 MG TAB PO SCH (09:59)
--- NOTE | 2018-08-01 10:23 | P.PN ---
Subjective Progress Note Date: 08/01/18 Principal diagnosis: Acute hypoxic respiratory failure secondary to massive aspiration This is a very pleasant 77-year-old gentleman who has a significant complicated multiple medical history including recent gastrointestinal bleeding, bladder cancer, prostate cancer status post urostomy with obstruction status post nephrostomy tube placement bilaterally. He has a history of myocardial infarction, atrial fibrillation and has been off his anticoagulants since last admission. He also has a significant history of chronic and ongoing tobacco dependence along with daily alcohol use. He has severe left ventricular systolic dysfunction with ejection fraction 25-30%. He was admitted again yesterday after less than 24 hours of being post discharge for continued ongoing nausea and vomiting. He states he is resting comfortably on his couch and dozing off and awoke to himself vomiting and did aspirate and choke on his stomach contents. He states these were all liquids. No food product. Mostly bile. Chest x-ray does show evidence of right lower lobe infiltrate secondary to aspiration. There is ongoing congestive heart failure as well. He is seen today in consultation on the selective care unit. Currently he is resting fairly comfortably in bed he is laying flat. No worsening shortness of breath, cough or congestion. He is maintaining good O2 saturations in the mid 90s on 2 L/m per nasal cannula. White count 13.1. Hemoglobin 8.1. Creatinine 1.22. ProBNP 5220. He has been initiated on DuoNeb inhalations, Levaquin and Zosyn. On today's evaluation of 07/25/2018, the patient essentially the same compared to yesterday. He has a congested cough. Bringing up minimal amount of sputum. He was able to have breakfast earlier this morning. He also had there are last night. No nausea. No abdominal distention. No emesis. No aspiration reported. His white cell count is stable at 7.6. Hemoglobin stable at 8.4. The liver function tests are also stable. He remains on broad-spectrum antibiotics. Currently is on a combination of Zosyn and Levaquin. He is also on DuoNeb nebulized treatments around the clock and he is also on IV Solu- Medrol. The Gram stain and cultures still pending for now. Repeat chest x-ray was done today and it shows small bilateral pleural effusion and cardiomegaly. There is bilateral infiltrates right more than left with some limited worsening of the pulmonary infiltrates in the right lung base. Pulmonary vasculature is also pronounced. On 07/26/2018 patient seen in follow-up on selective care unit. He still has the congestive cough, but not able to bring up much sputum. No fever or chills. No chest pain. Chest x-ray on 07/25/2018 showed a worsening right lower lobe infiltrate, there was also left basilar infiltrate and bilateral pleural effusions. Vital signs remain stable, patient is afebrile, blood and sputum ultra remain negative. Today's labs have been reviewed, BNP was done and showed sodium 138, potassium is 4.5, chloride is 107, CO2 of 21, BUN of 27 creatinine of 2.13. Patient is nothing by mouth for a scheduled EGD today by Dr. Echols. Current antibiotic coverage includes Levaquin and Zosyn. On 07/29/2018 patient seen in follow-up. Yesterday's chest ultrasound showed a right pleural fluid pocket of 8.4 cm, and left pleural fluid pocket of 1.3 cm. Patient remains short of breath, he remains on 2 L per nasal cannula his pulse ox is 94%, slightly tachycardic with a rate of 112-127 BPM, afebrile. His renal profile is impaired, on 07/28/2018 his bun was 40, and creatinine was 2.36. Patient is scheduled for right thoracentesis by Dr. Kaufman this afternoon , the risks and benefits of the procedure were explained to the patient, and patient is agreeable to proceed. Lung sounds are also positive for scattered wheezes, he remains on IV steroids, nebulized bronchodilators, and empiric antibiotics in the form of Levaquin and Zosyn. Microbiology results have been negative so far. On 08/01/2018 patient seen in follow-up on selective care unit. He is awake and alert, denies any worsening dyspnea, room air pulse ox is 96%, he is afebrile, hemodynamically stable. His right-sided chest pleural catheter was discontinued yesterday, follow-up chest x-ray was obtained in the afternoon, and showed small left plural effusion, and increased interstitial markings, or pneumothorax. Fluid cytology results are pending, fluid cultures remain negative, blood cultures and sputum cultures are negative as well. Patient is awaiting transfer to a tertiary center, for management of his ureteral vesicle ileal conduit obstruction. He states his nephrostomy tubes have not drained night. Lung sounds are positive for some scattered rhonchi. Patient was not accepted at the [facility], planning is working on transfer to [facility]. No fever no chills, no worsening shortness of breath, he continues on empiric antibiotics in the form of Levaquin and Zosyn. Objective - Vital Signs Vital signs: Vital Signs Temp 97.9 F 08/01/18 04:00 Pulse 116 H 08/01/18 07:08 Resp 19 08/01/18 04:00 BP 122/77 08/01/18 04:00 Pulse Ox 96 08/01/18 04:00 Intake & Output 07/31/18 08/01/18 08/01/18 19:59 06:59 18:59 Intake Total 180 Output Total Balance 180 Weight Intake: IV 0.9 Oral 180 Output: Urine Other: Voiding Method - Exam General appearance: cooperative, no acute distress - EENT Eyes: EOMI, PERRLA ENT: hearing grossly normal Ears: bilateral: normal - Neck Carotids: bilateral: upstroke normal Thyroid: bilateral: normal size - Respiratory Respiratory: Diminished breath sounds with scattered rhonchi - Cardiovascular Rhythm: irregularly irregular Heart sounds: normal: S1, S2 - Gastrointestinal General gastrointestinal: normal bowel sounds - Integumentary Integumentary: normal turgor - Neurologic Neurologic: CNII-XII intact - Musculoskeletal Musculoskeletal: generalized weakness - Psychiatric Psychiatric: A&O x's 3, appropriate affect - Labs CBC & Chem 7: 07/28/18 15:55 07/31/18 10:38 Labs: Abnormal Lab Results - Last 24 Hours (Table) 07/31/18 07/31/18 07/31/18 Range/Units 10:38 16:35 20:24 BUN 44 H (9-20) mg/dL Creatinine 1.59 H (0.66-1.25) mg/dL Glucose 231 H (74-99) mg/dL POC Glucose (mg/dL) 240 H 206 H (75-99) mg/dL Calcium 10.3 H (8.4-10.2) mg/dL Magnesium 1.5 L (1.6-2.3) mg/dL 08/01/18 Range/Units 06:29 BUN (9-20) mg/dL Creatinine (0.66-1.25) mg/dL Glucose (74-99) mg/dL POC Glucose (mg/dL) 236 H (75-99) mg/dL Calcium (8.4-10.2) mg/dL Magnesium (1.6-2.3) mg/dL Microbiology - Last 24 Hours (Table) 07/29/18 16:09 Gram Stain - Preliminary Pleural Fluid Body Fluid Culture - Preliminary Assessment and Plan Plan: #1 Acute hypoxic respiratory failure secondary to massive aspiration occurring at a time of emesis. The patient has by the pulmonary infiltrates with some interval worsening on the right. Barium swallow with video revealed vallecular retention without evidence of aspiration. The patient underwent a right-sided thoracentesis on 07/29/2008 with subsequent pneumothorax. The pleural there has been discontinued yesterday, follow-up chest x-ray showed no pneumothorax #2 Recent admission for nausea and vomiting. #3 Recent admissions for acute on chronic GI bleeding. #4 Chronic atrial fibrillation, currently off warfarin. #5 Acute on chronic renal injury secondary to chronic cardiorenal syndrome. #6 Ischemic cardiomyopathy with ejection fraction 20-30%. #7 History of bladder and prostate cancer and ileostomy nonfunctioning. Bilateral nephrostomy tubes in place. #8 History of chronic tobacco dependence. #9 Chronic obstructive pulmonary disease. #10 History of alcohol use. Plan: We'll obtain a follow-up chest x-ray this morning. Clinically patient denies any worsening shortness of breath, no fever or chills. Provide incentive spirometry, encourage to deep breathe and cough. Transfer to the [facility] for management of the uterovesicular ileal conduit obstruction is pending. Decrease the steroids to 40 mg BID. We'll continue current antibiotic coverage, cultures remain negative thus far, cytology of the pleural fluid is still pending at this time. Continue to follow. I performed a history & physical examination of the patient and discussed their management with my nurse practitioner, Reyna Greenwood. I reviewed the nurse practitioner's note and agree with the documented findings and plan of care. Lung sounds are diminished at the right base, and diffuse wheezes throughout. The findings and the impression was discussed with the patient. I attest to the documentation by the nurse practitioner. Time with Patient: Less than 30
--- NOTE | 2018-08-01 11:00 | XR ---
EXAMINATION TYPE: XR chest 1V portable DATE OF EXAM: 08/01/2018 HISTORY: follow up shortness of breath, aspiration pneumonia. REFERENCE: Previous study dated 07/31/2018. FINDINGS: Heart size upper limits of normal. There is worsening left basilar airspace disease. There is developing opacity at the right lung base. Both CP angles are blunted. I could not exclude small, bilateral effusions. IMPRESSION: 1. BIBASILAR AIRSPACE DISEASE. 2. BORDERLINE CARDIOMEGALY. 3. I SUSPECT SMALL, BILATERAL EFFUSIONS.
[2018-08-01 11:17] LABS: Glucose,Whole Blood 187 mg/dL (75-99)
[2018-08-01] MEDS: PIPERACILLIN-TAZOBACTAM 3.375 GM in SODIUM CHLORIDE 0.9% 100 ML IVPB SCH ×2 (12:14→21:05)
[2018-08-01 16:38] LABS: Glucose,Whole Blood 190 mg/dL (75-99)
[2018-08-01] MEDS: LEVOFLOXACIN 750MG-D5W PMX 750 MG in DEXTROSE/WATER 1 150ML.BAG IVPB SCH (17:30)
[2018-08-01 20:39] LABS: Glucose,Whole Blood 143 mg/dL (75-99)
[2018-08-02] MEDS: PIPERACILLIN-TAZOBACTAM 3.375 GM in SODIUM CHLORIDE 0.9% 100 ML IVPB SCH (02:50)
[2018-08-02 06:05] LABS: Glucose,Whole Blood 158 mg/dL (75-99)
[2018-08-02] MEDS: INSULIN ASPART 100 UNIT/ML 1 ML 10 ML VIAL SQ SCH (06:40)
[2018-08-02] MEDS: PANTOPRAZOLE 40 MG TABLET PO SCH (06:41)
[2018-08-02] MEDS: METOPROLOL TARTRATE 25 MG TAB PO SCH (08:37)
[2018-08-02] MEDS: SPIRONOLACTONE 25 MG TAB PO SCH (08:37)
[2018-08-02] MEDS: methylPREDNISolone SOD SUCCI 40 MG/ML 1 ML VIAL IV SCH (08:37)
[2018-08-02] MEDS: FERROUS SULFATE 325 MG TAB PO SCH (08:37)
[2018-08-02] MEDS: IPRATROPIUM-ALBUTEROL 3 ML NEB INHALATION SCH (09:10)
[2018-08-02 09:20] VITALS: BP 124/78; RESP 16; TEMP 96.9
[2018-08-02 09:24] VITALS: PULSE 100
[2018-08-02 11:40] LABS: Glucose,Whole Blood 161 mg/dL (75-99)
--- NOTE | 2018-08-02 12:58 | PN ---
PROGRESS NOTE DATE OF SERVICE: 08/01/2018 CHIEF COMPLAINT: Renal failure, blood loss anemia and heart failure. HISTORY OF PRESENT ILLNESS: This gentleman is stable and comfortable and his family is making arrangements to take him at [facility]. PHYSICAL EXAM: His chest is fairly clear. There are scattered rales. Cardiac exam demonstrates atrial fibrillation with a rate around 90. There is a small amount urine draining from the left nephrostomy tube and more from the right. IMPRESSION: 1. Congestive heart failure. 2. Blood loss anemia. 3. Status post upper gastrointestinal bleed. 4. Atrial fibrillation. 5. Heart failure. 6. Pleural effusion. PLAN: The family is making arrangements for his transfer to [facility]. They are hoping to find a physician that will accept him, but otherwise they will drive him straight to the emergency room probably tomorrow. MMTYLER / WARREN: [id number] /
--- NOTE | 2018-08-02 20:55 | DS ---
DISCHARGE SUMMARY CHIEF COMPLAINT: Aspiration pneumonia. HISTORY OF PRESENT ILLNESS AND PHYSICAL EXAM: Details of this man's history and physical can be found in the initial workup. LABORATORY STUDIES: While he was in the hospital, he had laboratory studies, details of which can be found in the laboratory section of his chart. COURSE IN HOSPITAL: After admission, he was placed on bedrest and started on intravenous fluids, updrafts and antibiotics. It was felt he had aspirated. He was seen and followed by Pulmonology. Gradually improved. While he was in the hospital, he had some difficulty with the left nephrostomy tube which quit working. He was started on intravenous fluids and IV antibiotics. He was followed by Pulmonology. While he was in the hospital, he had a left nephrostomy tube and quit draining and he had to be taken back for a replacement by Interventional Radiology. It drained slightly, but not nearly as much as the right. It was recognized that he was eventually going to need to have reimplantation of the ureters into the ileal conduit. It was the desire of Urology that he be transferred to a tertiary hospital since this is not done here. In the meantime, he had developed pleural effusions secondary to his heart failure. Arrangements were going to be made to send the patient to [facility], but the family wanted to go to [place]. They were contacted and eventually made the decision that they would not take him. The family was insistent and they know a equal opportunity specialist that they had planned on talking to with hopes of getting him admitted. On the morning of discharge, they made the decision to take him from the hospital to the emergency room at [facility]. FINAL DIAGNOSES: 1. Aspiration pneumonia. 2. Blood loss anemia. 3. Status post up massive upper gastrointestinal bleed with hypovolemic shock. 4. Atrial fibrillation. 5. Congestive heart failure. 6. Pleural effusion. 7. Renal failure. 8. Obstructive bilateral ureteropathy. 9. Chronic obstructive pulmonary disease. 10.History of carcinoma of the bladder. OPERATIONS: 1. Thoracentesis. 2. Bronchoscopies. He is improved. MMODL / IJN: [id number] /
== END 2018-08-02 12:06 | disposition other institution (70) | DRG 177 ==
LOC: EC 12:43 → 3SCARD 15:48 → 4MS4W 07-27 17:43 → 3SCARD 07-28 06:21
PROVIDERS: ADMIT Family Medicine; ATTEND Family Medicine
PROC: 0DB48ZX Excision of Esophagogastric Junction, Via Natural or Artificial Opening Endoscopic, Diagnostic (ICD-10-PCS; 2018-07-26)
PROC: 0DB38ZX Excision of Lower Esophagus, Via Natural or Artificial Opening Endoscopic, Diagnostic (ICD-10-PCS; 2018-07-26)
PROC: 0DB68ZX Excision of Stomach, Via Natural or Artificial Opening Endoscopic, Diagnostic (ICD-10-PCS; principal; 2018-07-26 09:45)
PROC: 0W993ZZ Drainage of Right Pleural Cavity, Percutaneous Approach (ICD-10-PCS; 2018-07-30)
PROC: 0T25X0Z Change Drainage Device in Kidney, External Approach (ICD-10-PCS; 2018-07-30)
DX: J69.0 Pneumonitis due to inhalation of food and vomit (principal); I50.23 Acute on chronic systolic (congestive) heart failure; J96.01 Acute respiratory failure with hypoxia; I13.0 Hypertensive heart and chronic kidney disease with heart failure and stage 1 through stage 4 chronic kidney disease, or unspecified chronic kidney disease; I48.1 Persistent atrial fibrillation; J93.9 Pneumothorax, unspecified; N17.9 Acute kidney failure, unspecified; D50.0 Iron deficiency anemia secondary to blood loss (chronic); E83.42 Hypomagnesemia; E87.6 Hypokalemia; F17.200 Nicotine dependence, unspecified, uncomplicated; I25.10 Atherosclerotic heart disease of native coronary artery without angina pectoris; I25.5 Ischemic cardiomyopathy; J44.9 Chronic obstructive pulmonary disease, unspecified; K21.0 Gastro-esophageal reflux disease with esophagitis; K29.70 Gastritis, unspecified, without bleeding; N18.3 Chronic kidney disease, stage 3 (moderate); I25.2 Old myocardial infarction; N13.9 Obstructive and reflux uropathy, unspecified; I95.9 Hypotension, unspecified; T83.012A Breakdown (mechanical) of nephrostomy catheter, initial encounter; K64.9 Unspecified hemorrhoids; Z79.899 Other long term (current) drug therapy; Z85.46 Personal history of malignant neoplasm of prostate; Z85.51 Personal history of malignant neoplasm of bladder; Z86.73 Personal history of transient ischemic attack (TIA), and cerebral infarction without residual deficits; Z87.11 Personal history of peptic ulcer disease; Z90.79 Acquired absence of other genital organ(s); Z92.21 Personal history of antineoplastic chemotherapy; Z85.038 Personal history of other malignant neoplasm of large intestine; Z16.12 Extended spectrum beta lactamase (ESBL) resistance
CPT/HCPCS: 36415; 43239; 71045; 71046; 74230; 75984; 76604; 77001; 80048; 80053; 80076; 81001; 82550; 82553; 82945; 83605; 83615; 83735; 83880; 84157; 84484; 85025; 85610; 85730; 87040; 87070; 87086; 87102; 87116; 87205; 87206; 88108; 88305; 88341; 88342; 89050; 93005; 93306; 94640; 94760; 96365; 96366; 96367; 96368; 96375; 99285